=== PATIENT | female | born 1970 | race Two or more races ===

== ENCOUNTER 2024-06-15 09:51 | Inpatient (IN) | payer MEDICAID, SELFPAY ==
[2024-06-15] VITALS (42 sets, daily range): BP systolic 73–139; BP diastolic 43–89; PULSE 46–100; RESP 15–33; TEMP 35.4–36.6; O2SAT 89–100; BMI 21.3; BMI 12.8
--- NOTE | 2024-06-15 10:02 | PC.NURSE ---
FSBG 101 2 IV placed 500 bolus started 1003 bolus started BP 67/42 Preparing to intubate 1006 10 of eto 50 succ 1008 pads placed on pt BP 73/45 O2 sat 87 % 1010 eto in Succ in 1011 O2 79% 1015 BP 56/37 intubation in progress 500 ml fluids started 1016 Intubation successful + color change 21 at the gum O2 sat 83% 1020 O2 sat 52% Bagging pt via BVM Preparing to re intubate 1022 CPR epi in 1023 1024 Pulse present 1025 ett out 1027 [place] 20 at gum + color change bilat lung sounds 5.5mm ett 1031 Xray 97.3 rectal 93/56 1033 OG 45 at the lip
[2024-06-15] MEDS: ETOMIDATE INJ 2 MG/ML VIAL 10 ML 20 MG IVP (10:04)
[2024-06-15] MEDS: SODIUM CHLORIDE 0.9% 500 ML 500 ML 999 ML IV ×2 (10:04→10:10)
--- NOTE | 2024-06-15 10:19 | XR_ITS ---
Examination: AP chest single view Technique: AP portable supine chest single view Comparison February 25, 2012 Indications: Hypoxic respiratory failure postintubation Findings: Significant hyperexpansion Mild prominence of ventricle Prominent edema and/or pneumonia Tracheal tube tip approximately 5.6 cm above tiki Orogastric tube in the stomach although the stomach is air distended Prominent osteopenia Impression: Findings most consistent with heart failure, superimposed pneumonia left lung not excluded Endotracheal tube tip 5.6 cm above tiki
--- NOTE | 2024-06-15 10:37 | XR_ITS ---
Examination: CT brain head without contrast. 2-D sagittal coronal reconstructions Date and time of exam:June 15, 2024 1418 hrs. Indications: Altered mental status today with hypoxic respiratory failure postintubation CTDI: vol (mGy):39.1 DLP: (mGycm):724 Technique: Multiple CT axial sections of the brain have been obtained, 5 mm slice thickness. Contrast has not been administered. 2-D sagittal, coronal reconstructions have been obtained Low dose protocols were performed. One or more of the following dose reduction techniques were used; automated exposure control, adjustment of the mA and/or KV according to patient size, use of iterative reconstruction technique. Findings: No significant ventricular enlargement. Acute appearing low density areas in both basal ganglia Intra-axial or extra-axial hemorrhage density is not seen. No mass effect or midline shift Basal cisterns are not remarkable. Fourth ventricle is midline. Cranial vault intact. Impression: Negative for acute hemorrhage, mass effect or midline shift Acute appearing low density areas in both basal ganglia, axial images 21 and 22, seen with ischemic or anoxic change Recommend brain MRI follow-up stroke protocol
--- NOTE | 2024-06-15 10:37 | XR_ITS ---
Examination: AP chest single view Technique: AP portable supine chest single view Exam date and time: June 15, 2024 11:25 AM Comparison June 15, 2024 10:34 AM Indications: Reposition tracheal tube Findings: Again noted extensive bilateral edema and/or pneumonia Cardiac contour remains enlarged The tracheal tube tip is not optimally visualized but appears to project 22 mm above tiki No pneumothorax Impression: The tracheal tube tip is not optimally visualized but appears to project 22 mm above the tiki
--- NOTE | 2024-06-15 10:40 | PD.EDAMS ---
Altered Mental Status RME/HPI General Chief Complaint: Altered Mental Status Stated Complaint: UNRESPONSIVE Time Seen by Provider: 06/15/24 10:36 Arrival date/time: 06/15/24 09:51 RME / HPI RME / HPI narrative: The patient was brought into the emergency department by care provider by the name of Ayala Putnam phone #[phone] from home. According to the patient's care provider who is also decision-maker the patient has had a cough about 4 days. Diarrhea for 3 days. But the patient also had an irritable bowel syndrome. Patient is also legally blind No fever. No vomiting. Diarrhea yes. No trouble urinating. No more falling than usual because she is legally blind. But she did not break any bones according to the care provider. The patient last known well was about 9 PM last night when she was responding to the care provider. When the care provider found her this morning she was in bed and nonresponsive. Upon arrival to emergency department her GCS scale was less than 8 therefore she need to be intubated right away. Upon arrival to the emergency department her O2 saturation is only 60% on nonrebreathing mask. And her blood pressure was less than 84 over palpable. Her temperature was okay. Her fingerstick was normal. And there was no sign of trauma to her body. She is not responsive. She is not talking. When she is not moving. Related Data Allergies Allergy/AdvReac Type Severity Reaction Status Date / Time No Known Allergies Allergy Unverified 06/15/24 10:42 Review of Systems Review of Systems Narrative Review of Systems: Review of system is unobtainable from the patient herself because of the current clinical situation. The review of the system was done through the health care provider who is also her friend and care provider and decision maker for more than a decade. The care provider knows the patient very well and take care of the patient very well. According to the care provided the patient's family member, sister, is coming in. I am unable to talk to her on the phone. Past Medical History Past Medical History Comments [facility] COMMENT: No syndrome. Schizophrenia. Bipolar. No diabetes. No stroke. Cholesterol. Blindness. History of pneumonia a few times. Medications including behavior medication and sleep aid ED Exam Narrative Physical exam: Patient eyes are closed. GCS of 3. Not moving. Nonverbal. O2 saturation was poor and blood pressure was poor. No acute distress O2 saturation is very low even on the mask Heent: Her pupils are difficult to tell because she is blind. Neck: full rom.? No mass.? Positive JVD. jvd.? No lymphadenopathy Lungs:?Agonal breathing. Heart:? s1s2.? Rrr.? No murmur, gallop or rub. Abd: soft, nondistended, nontender, no mass, no rebound or guarding, no flank tender.? No incarcerated? hernia Ext: No sign of trauma. No range of motion. Not moving.. Neuro: GCS of 3. Patient is nonverbal. Not moving. And no open eyes. Skin:? no rash.? No cellulitis.? No lesion.? No laceration Psychiatrical: No history of suicidal overdose. Course Quality Measures none Orders Category Date Time Status Patient Condition Routine Admission 06/15/24 13:51 Ordered Aspiration precautions NOW Care 06/15/24 13:51 Active EKG (ED ONLY) *Do not use* NOW Care 06/15/24 10:57 Completed Park [Urinary Catheter] QS Care 06/15/24 10:37 Active Intubation NOW Care 06/15/24 10:40 Completed NPO NEEDED Care 06/15/24 13:50 Active NPO NOW Care 06/15/24 13:51 Active Notify provider NEEDED Care 06/15/24 13:50 Active Strict Intake and Output Q1H Care 06/15/24 14:00 Ordered Strict Intake and Output Q1H Care 06/15/24 15:00 Ordered Strict Intake and Output Q1H Care 06/15/24 16:00 Ordered Strict Intake and Output Q1H Care 06/15/24 17:00 Ordered Strict Intake and Output Q1H Care 06/15/24 18:00 Ordered Strict Intake and Output Q1H Care 06/15/24 19:00 Ordered Strict Intake and Output Q1H Care 06/15/24 20:00 Ordered Strict Intake and Output Q1H Care 06/15/24 21:00 Ordered Strict Intake and Output Q1H Care 06/15/24 22:00 Ordered Strict Intake and Output Q1H Care 06/15/24 23:00 Ordered Diet NPO (NOW) Diet 06/15/24 13:[address] head/brain wo con Stat Exams 06/15/24 10:37 Completed CXR1 [XR chest 1V post procedure] Stat Exams 06/15/24 13:33 Completed EKG (ED Only) Stat Exams 06/15/24 10:57 Draft XR chest 1V portable DAILY Exams 06/16/24 09:00 Ordered XR chest 1V portable DAILY Exams 06/17/24 09:00 Ordered XR chest 1V portable DAILY Exams 06/18/24 09:00 Ordered XR chest 1V portable DAILY Exams 06/19/24 09:00 Ordered XR chest 1V portable DAILY Exams 06/20/24 09:00 Ordered XR chest 1V portable Stat Exams 06/15/24 10:37 Completed XR chest 1V post procedure Stat Exams 06/15/24 10:19 Completed ABG [Arterial Blood Gas] Stat Lab 06/15/24 14:05 Completed Alcohol, Blood Medical Stat Lab 06/15/24 10:12 Completed Arterial Blood Gas AM DRAW Lab 06/16/24 05:00 Ordered Arterial Blood Gas AM DRAW Lab 06/17/24 05:00 Ordered Arterial Blood Gas AM DRAW Lab 06/18/24 05:00 Ordered Arterial Blood Gas AM DRAW Lab 06/19/24 05:00 Ordered Arterial Blood Gas AM DRAW Lab 06/20/24 05:00 Ordered Arterial Blood Gas Stat Lab 06/15/24 11:06 Completed BNP [B-Type Natriuretic Peptide] Routine Lab 06/15/24 18:00 Ordered Blood Culture (Lab) Stat Lab 06/15/24 11:14 Received CBC DAILY Lab 06/17/24 09:00 Ordered CBC DAILY Lab 06/18/24 09:00 Ordered CBC DAILY Lab 06/19/24 09:00 Ordered CBC DAILY Lab 06/20/24 09:00 Ordered CBC DAILY Lab 06/21/24 09:00 Ordered CBC Stat Lab 06/15/24 10:12 Completed CMP [Comprehensive Metabolic Panel] Stat Lab 06/15/24 10:12 Completed Comprehensive Metabolic Panel DAILY Lab 06/17/24 09:00 Ordered Comprehensive Metabolic Panel DAILY Lab 06/18/24 09:00 Ordered Comprehensive Metabolic Panel DAILY Lab 06/19/24 09:00 Ordered Comprehensive Metabolic Panel DAILY Lab 06/20/24 09:00 Ordered Comprehensive Metabolic Panel DAILY Lab 06/21/24 09:00 Ordered Drug Screen,Urine Stat Lab 06/15/24 10:55 Completed Lipase Stat Lab 06/15/24 10:12 Completed Prothrombin Time with INR Routine Lab 06/15/24 14:56 Completed Sputum Culture and Gram Stain Stat Lab 06/15/24 11:06 Received Troponin I Q8H Lab 06/15/24 18:00 Ordered Troponin I Q8H Lab 06/16/24 02:00 Ordered Troponin I Q8H Lab 06/16/24 10:00 Ordered Troponin I Stat Lab 06/15/24 10:12 Completed UA, C/S IF [Urinalysis, C/S if Indicated] Stat Lab 06/15/24 10:55 Completed Urine Culture Stat Lab 06/15/24 10:55 Received Acetaminophen Supp [Tylenol Supp] Med 06/15/24 13:50 Active 650 mg KS Q4HR PRN Acetaminophen Tab [Tylenol Tab] Med 06/15/24 13:50 Active 650 mg PO Q4HR PRN Etomidate Inj [Amidate Inj] Med 06/15/24 10:04 Discontinued 20 mg IVP X1 ONE Heparin Inj Med 06/15/24 14:00 Active 5,000 unit SC Q8HR Milk Of Magnesia Susp [Mom Susp] Med 06/15/24 13:50 Active 30 ml NG QDAY PRN Nitroglycerin [Nitrostat 1/150] Med 06/15/24 13:50 Active 0.4 mg SL Q5MIN PRN Norepinephrine/D5W 8mg/250ml [Levophed in D5W 8mg/250ml Med 06/15/24 10:37 Active ] 8 mg in 250 ml IV 0.05 mcg/kg/min Norepinephrine/D5W 8mg/250ml [Levophed in D5W 8mg/250ml Med 06/15/24 10:55 Discontinued ] 8 mg in 250 ml IV 0.05 mcg/kg/min Pantoprazole Inj [Protonix Inj] Med 06/16/24 09:00 Active 40 mg IVP QDAY Propofol 1,000 mg Ivpb [Diprivan Ivpb] Med 06/15/24 10:55 Active 1,000 mg in 100 ml IV 5 mcg/kg/min Ringers Lactated 500 ml [Lactated Ringers] 500 ml Med 06/15/24 12:51 Discontinued IV 999 mls/hr Ringers Lactated 500 ml [Lactated Ringers] 500 ml Med 06/15/24 13:27 Discontinued IV 999 mls/hr Sodium Chloride 0.9% 500 ml [Ns] 500 ml Med 06/15/24 10:39 Discontinued IV 999 mls/hr Sodium Chloride 0.9% 500 ml [Ns] 500 ml Med 06/15/24 10:39 Discontinued IV 999 mls/hr Succinylcholine Inj [Anectine Inj] Med 06/15/24 10:02 Discontinued 200 mg .ROUTE .STK-MED ONE Succinylcholine Inj [Anectine Inj] Med 06/15/24 10:05 Discontinued 50 mg IV X1 ONE Vasopressin in Ns Ivpb [Vasostrict/Ns Ivpb] Med 06/15/24 13:48 Active 20 unit in 100 ml IV 0.03 unit/min cefTRIAXone/D5w 1gm IV premix [Rocephin/D5w 1gm IV Med 06/15/24 10:54 Discontinued premix] 50 ml IV X1 mg Hyd/Al Hyd/Franklyn Susp [Maalox Susp] Med 06/15/24 13:50 Active 30 ml NG Q4HR PRN Code Status Routine Oth 06/15/24 13:50 Ordered Volume Ventilator Stat RT 06/15/24 10:40 Active Vital Signs Vital signs: Vital Signs Temperature 97.3 F 06/15/24 10:54 Pulse Rate 100 06/15/24 10:54 Respiratory Rate 32 H 06/15/24 10:54 Blood Pressure 81/43 L 06/15/24 10:54 Pulse Oximetry (%) 100 06/15/24 10:54 Oxygen Delivery Method Mechanical Ventilation 06/15/24 10:54 Fraction of Inspired Oxygen 100 06/15/24 10:54 Altered Mental Status MDM Narrative MDM Narrative:: The patient did have a soft CODE BLUE in the emergency department lasted for maybe a few minutes. And CPR was given. After that she regained a pulse. Normal saline 500 mL normal saline boluses was given to the patient because of the hypotension. I intubated the patient with a size 5-1/2 ET tube. Using glide scope. No problem. O2 saturation is up to 100% after the intubation. Positive for handheld CO2 monitor color change. No stomach air bubble. Postintubation chest x-ray by me: Significant left-sided pneumonia. ET tube is in good position. In spite of radiologist interpretation, in retrospect, I think the ET tube is right. OG tube is also in good position. No pneumothorax. I doubt if there is any CHF based on her dehydration. There is no need chest x-ray to compare with. Twelve-lead EKG that was done at 11 0 9 AM and interpreted by me: Sinus tachycardia. Heart rate of 100. Normal axis. No ST elevation or depression. No PVC. No STEMI. Regular rate and rhythm. Motion artifact wavering baseline. WBC count of 13,000. Hemoglobin of 9. Hematocrit of 29.7. Platelet of 120. Sodium 166. Chloride 124. BUN of62 and creatinine of 2.6. Once again there is no lab to compare with. Lipase is negative. Osmolality 346 consistent with dehydration. Troponin is 0.236. UA is negative. Tox screen is negative. EtOH is negative. 12 PM, in spite of being received close to a liter of normal saline boluses in aliquots, in spite of being on Levophed 0.1 mcg/kg/min, her blood pressure is still 76 over palpable. O2 saturation is 100% on the vent. Because of the prospect of dehydration with a sodium and chloride being elevated, I asked the nursing staff to give the patient another 250 normal saline bolus in an attempt to bring up her blood pressure. The patient's family members are here including the 2 sisters. They are aware of the patient critical condition. And I let them know about the prognosis which is not very good. 12:20 PM, I spoke to and discussed with Dr. Alexander, ICU doctor on-call. She agrees to evaluate the patient for admission to the ICU. [place] [address] [place] [address] [facility] Report Signed Patient: MATTHEW MILTON. Record#: [id number] Birthdate: 1970 Age/Sex: 54 / F Location: [facility] Attending Dr: Ordering Physician: Mitchel Gonzalez MD Date of Service: 06/15/24 Procedure(s): CT head/brain wo con Accession Number(s): [id number] cc: Jayce Muñiz MD; Kye Monet MD; Mitchel Gonzalez MD~ Examination: CT brain head without contrast. 2-D sagittal coronal reconstructions Date and time of exam:June 15, 2024 1418 hrs. Indications: Altered mental status today with hypoxic respiratory failure postintubation CTDI: vol (mGy):39.1 DLP: (mGycm):724 Technique: Multiple CT axial sections of the brain have been obtained, 5 mm slice thickness. Contrast has not been administered. 2-D sagittal, coronal reconstructions have been obtained Low dose protocols were performed. One or more of the following dose reduction techniques were used; automated exposure control, adjustment of the mA and/or KV according to patient size, use of iterative reconstruction technique. Findings: No significant ventricular enlargement. Acute appearing low density areas in both basal ganglia Intra-axial or extra-axial hemorrhage density is not seen. No mass effect or midline shift Basal cisterns are not remarkable. Fourth ventricle is midline. Cranial vault intact. Impression: Negative for acute hemorrhage, mass effect or midline shift Acute appearing low density areas in both basal ganglia, axial images 21 and 22, seen with ischemic or anoxic change Recommend brain MRI follow-up stroke protocol Dictated By: Kye Monet MD Signed By: <Electronically signed by Kye Monet MD in OV> 06/15/24 1500 DD/ 1458 TD/TT: 06/15/24 1458 Director Of Valuation: ISAAC CT brain was reviewed and interpreted by me as follow: Not symmetrical because of the patient positioning. However the patient has no bleed. No mass. No shifting. No swelling. Normal ventricle. Normal skull. Critical care time is approximately 45 minutes excluding any procedure. The high probability of sudden, clinically significant deterioration in the patient?s condition required the highest level of my preparedness to intervene urgently. The services I provided to this patient were to treat and/or prevent clinically significant deterioration. Services included the following: chart data review, reviewing nursing notes and/or old charts, documentation time, systems security consultant collaboration regarding findings and treatment options, medication orders and management, direct patient care, vital sign assessments and ordering, interpreting and reviewing diagnostic studies and lab tests. Aggregate critical care time includes only time during which I was engaged in work directly related to the patient?s care, as described above, whether at bedside or elsewhere in the Emergency Department. It did not include time spent performing other reported procedures or the services of residents, students, nurses or physician assistants. Patient data External records reviewed:: [facility] previous records Clinical information provided by:: family, guardian and plastic maker Social determinants that could affect healthcare access:: none Patient has the following chronic illnesses:: Down syndrome. How is presenting disease/condition affected by chronic disease/condition?: uneffected by Evaluation data The following diagnostics were reviewed and interpreted by me:: lab results, radiology exam(s) and EKG tracing(s) Lab and/or radiology exams considered but not ordered:: None Interpretation Summary: See MDM Medications / Prescriptions Medications or Prescriptions considered but not ordered:: None Medication administrations:: Medication Administration History Acetaminophen (Acetaminophen 325 Mg Tablet) 650 mg PO Q4HR PRN PRN Reason: PAIN SCALE 1-3 (mild Stop: 07/15/24 13:49 Acetaminophen (Acetaminophen Supp 650 Mg Supp) 650 mg KS Q4HR PRN PRN Reason: PAIN SCALE 1-3 (mild Stop: 07/15/24 13:49 Al Hydrox/Mg Hydrox/Simethicone (Mg Hyd/Al Hyd/Franklyn (Maalox Reg) Susp 30 Ml Udc) 30 ml NG Q4HR PRN PRN Reason: Heartburn or Upset Stomach Stop: 07/15/24 13:49 Heparin Sodium (Porcine) (Heparin Sod Inj 5000 Unit/Ml Vial) 5,000 unit SC Q8HR [facility] Stop: 06/29/24 13:59 Last Admin: 06/15/24 15:01 Dose: 5,000 unit Documented By: ESTEFANI Co-signed By: CK Hydrocortisone Sodium Succinate (Hydrocortisone Sod Succ Inj 100 Mg Vial) 50 mg IV Q6HR [facility] Stop: 07/15/24 17:59 Norepinephrine/Dextrose (Levophed In D5w 8mg/250ml) 8 mg in 250 mls @ 2.977 mls/hr IV .Q24H PRN; Protocol PRN Reason: PER PROTOCOL Stop: 07/15/24 10:36 Last Titration: 06/15/24 15:10 Dose: 0.46 mcg/kg/min, 27.385 mls/hr Documented By: Titration: 06/15/24 14:42 Dose: 0.44 mcg/kg/min, 26.195 mls/hr Documented By: Titration: 06/15/24 14:05 Dose: 0.44 mcg/kg/min, 26.195 mls/hr Documented By: Titration: 06/15/24 13:50 Dose: 0.44 mcg/kg/min, 26.195 mls/hr Documented By: Titration: 06/15/24 13:45 Dose: 0.44 mcg/kg/min, 26.195 mls/hr Documented By: Titration: 06/15/24 13:41 Dose: 0.44 mcg/kg/min, 26.195 mls/hr Documented By: Titration: 06/15/24 13:36 Dose: 0.44 mcg/kg/min, 26.195 mls/hr Documented By: Titration: 06/15/24 13:31 Dose: 0.44 mcg/kg/min, 26.195 mls/hr Documented By: Titration: 06/15/24 13:26 Dose: 0.42 mcg/kg/min, 25.004 mls/hr Documented By: Titration: 06/15/24 13:21 Dose: 0.42 mcg/kg/min, 25.004 mls/hr Documented By: Titration: 06/15/24 13:16 Dose: 0.38 mcg/kg/min, 22.623 mls/hr Documented By: Titration: 06/15/24 13:11 Dose: 0.36 mcg/kg/min, 21.432 mls/hr Documented By: Titration: 06/15/24 13:06 Dose: 0.36 mcg/kg/min, 21.432 mls/hr Documented By: Titration: 06/15/24 12:59 Dose: 0.34 mcg/kg/min, 20.241 mls/hr Documented By: Titration: 06/15/24 12:54 Dose: 0.32 mcg/kg/min, 19.051 mls/hr Documented By: Titration: 06/15/24 12:47 Dose: 0.3 mcg/kg/min, 17.86 mls/hr Documented By: Titration: 06/15/24 12:45 Dose: 0.24 mcg/kg/min, 14.288 mls/hr Documented By: Titration: 06/15/24 12:41 Dose: 0.22 mcg/kg/min, 13.097 mls/hr Documented By: Titration: 06/15/24 12:36 Dose: 0.17 mcg/kg/min, 10.121 mls/hr Documented By: Titration: 06/15/24 12:32 Dose: 0.15 mcg/kg/min, 8.93 mls/hr Documented By: Titration: 06/15/24 12:27 Dose: 0.13 mcg/kg/min, 7.739 mls/hr Documented By: Titration: 06/15/24 12:20 Dose: 0.11 mcg/kg/min, 6.549 mls/hr Documented By: Titration: 06/15/24 12:15 Dose: 0.09 mcg/kg/min, 5.358 mls/hr Documented By: Titration: 06/15/24 12:11 Dose: 0.07 mcg/kg/min, 4.167 mls/hr Documented By: Titration: 06/15/24 12:00 Dose: 0.05 mcg/kg/min, 2.977 mls/hr Documented By: Titration: 06/15/24 11:36 Dose: 0.05 mcg/kg/min, 3.121 mls/hr Documented By: Titration: 06/15/24 11:32 Dose: 0.05 mcg/kg/min, 3.07 mls/hr Documented By: Titration: 06/15/24 11:27 Dose: 0.05 mcg/kg/min, 3.02 mls/hr Documented By: Admin: 06/15/24 11:22 Dose: 0.05 mcg/kg/min, 2.977 mls/hr Documented By: ESTEFANI Propofol (Diprivan Ivpb) 1,000 mg in 100 mls @ 0.953 mls/hr IV .Q24H PRN; Protocol PRN Reason: PER PROTOCOL Stop: 07/15/24 10:54 Last Titration: 06/15/24 12:26 Dose: 10 mcg/kg/min, 1.905 mls/hr Documented By: Admin: 06/15/24 11:53 Dose: 5 mcg/kg/min, 0.953 mls/hr Documented By: AA Co-signed By: CK Vasopressin/Sodium Chloride (Vasostrict/Ns Ivpb) 20 unit in 100 mls @ 9 mls/hr IV .Q11H7M PRN; Protocol PRN Reason: PER PROTOCOL Stop: 07/15/24 13:47 Last Admin: 06/15/24 15:43 Dose: 0.03 unit/min, 9 mls/hr Documented By: CK Piperacillin/Tazobactam/Dextrose (Zosyn) 50 mls @ 12.5 mls/hr IV Q12HR [facility] Stop: 06/23/24 08:59 Piperacillin/Tazobactam/Dextrose (Zosyn) 50 mls @ 100 mls/hr IV X1 ONE Stop: 06/15/24 16:59 Magnesium Hydroxide (Milk Of Magnesia Susp 30 Ml Udc) 30 ml NG QDAY PRN PRN Reason: CONSTIPATION Stop: 07/15/24 13:49 Nitroglycerin (Nitroglycerin 0.4 Mg Subl Btl #25) 0.4 mg SL Q5MIN PRN PRN Reason: CHEST PAIN Pantoprazole Sodium (Pantoprazole Inj 40 Mg Vial) 40 mg IVP QDAY [facility] Stop: 07/16/24 08:59 Discontinued Medications Etomidate (Etomidate Inj 2 Mg/Ml Vial 10 Ml) 20 mg IVP X1 ONE Stop: 06/15/24 10:05 Last Admin: 06/15/24 10:04 Dose: 20 mg Documented By: CK Sodium Chloride (Ns) 500 mls @ 999 mls/hr IV .Q31M ONE Stop: 06/15/24 11:09 Last Infusion: 06/15/24 11:00 Dose: Infused Documented By: Admin: 06/15/24 10:10 Dose: 999 mls/hr Documented By: CK Sodium Chloride (Ns) 500 mls @ 999 mls/hr IV .Q31M ONE Stop: 06/15/24 11:09 Last Infusion: 06/15/24 11:00 Dose: Infused Documented By: Admin: 06/15/24 10:04 Dose: 999 mls/hr Documented By: CK Ceftriaxone Sodium/Dextrose (Rocephin/D5w 1gm Iv Premix) 50 mls @ 100 mls/hr IV X1 ONE Stop: 06/15/24 11:23 Last Infusion: 06/15/24 12:13 Dose: Infused Documented By: Admin: 06/15/24 11:13 Dose: 100 mls/hr Documented By: ESTEFANI Norepinephrine/Dextrose (Levophed In D5w 8mg/250ml) 8 mg in 250 mls @ 0 mls/hr IV PRN; Protocol PRN Reason: PER PROTOCOL Stop: 07/15/24 10:54 Lactated Ringer's (Lactated Ringers) 500 mls @ 999 mls/hr IV .Q31M ONE Stop: 06/15/24 13:21 Last Infusion: 06/15/24 13:38 Dose: Infused Documented By: Admin: 06/15/24 13:03 Dose: 999 mls/hr Documented By: ESTEFANI Lactated Ringer's (Lactated Ringers) 500 mls @ 999 mls/hr IV .Q31M ONE Stop: 06/15/24 13:57 Last Infusion: 06/15/24 14:48 Dose: Infused Documented By: Admin: 06/15/24 13:38 Dose: 999 mls/hr Documented By: ESTEFANI Succinylcholine Chloride (Succinylcholine Inj 20 Mg/Ml Vial 10 Ml) 50 mg IV X1 ONE Stop: 06/15/24 10:06 Last Admin: 06/15/24 11:00 Dose: 50 mg Documented By: CK Succinylcholine Chloride (Succinylcholine Inj 20 Mg/Ml Vial 10 Ml) Confirm Administered Dose 200 mg .ROUTE .STK-MED ONE Stop: 06/15/24 10:03 Last Admin: 06/15/24 10:58 Dose: Not Given Documented By: CK Non-Admin Reason: Override Medication Some of this medication given by me. Some of these medications are given by the hospitalist Consultations Consultation(s) initiated? (list below): No Diagnosis Most likely diagnosis given after review of the tests above:: Sepsis. Pneumonia. Severe dehydration. Intubated. CODE BLUE. Admission Indicated Admission indicated?: indicated Admission Request Was there a request for admission?: Yes Admission Attestation Admission request attestation: Discussed case with [] from Hospitalist service regarding admission. Discussed patients ED course, exam findings, labs, and radiology results. The Hospitalist [agrees,declines] to accept the patient for admission. Disposition Plan Disposition Plan: Admit Discharge Plan Plan Patient Disposition: Admit Acute Care w/in Hospital Disposition Comment: To be admitted to ICU for critical care Problem List Clinical Impression: Altered mental status, Pneumonia, Severe dehydration, Acute hypotension, Elevated troponin, Endotracheally intubated
[2024-06-15 10:53] LABS: Basophils % (Auto) 0 % (0-2.5); Eosinophils % (Auto) 0 % (0-10); Hematocrit 29.7 % (36.0-46.0); Hemoglobin 9.2 g/dL (12.0-16.0); Immature Granulocytes % (Auto) 1 % (0-0); Immature Granulocytes Auto 0.09 Thou/mm3 (0.00-0.00); Lymphocytes # (Auto) 0.8 Thou/mm3 (1.0-4.8); Lymphocytes % (Auto) 6 % (10-50); Mean Corpuscular Hemoglobin 35.4 pg (25.0-35.0); Mean Corpuscular Volume 114 fL (80-100); Monocytes # (Auto) 0.4 Thou/mm3 (0.0-0.8); Monocytes % (Auto) 3 % (0-12); Neutrophils % (Auto) 90 % (37-80); Nucleated Red Blood Cell % 0 /100 WBC (0); Platelet Count 120 Thou/mm3 (140-440); RDW Standard Deviation 69.6 fL (36.4-46.3); White Blood Count 13.4 Thou/mm3 (3.6-11.0)
--- NOTE | 2024-06-15 10:53 | PC.NURSE ---
RT moved tube at 23cm at the teeth.
--- NOTE | 2024-06-15 10:57 | EKG_ITS ---
[facility] Test Date: 2024-06-15 Pat Name: MATTHEW MILTON Department: Room: - Gender: Female Mid Wife: : 1970 Requested By: Mitchel Gonzalez Order Number: [id number] Reading MD: Mitchel Gonzalez Measurements Intervals [place] Rate: 100 P: 71 DE: 100 QRS: 86 QRSD: 82 T: -2 QT: 360 QTc: 465 Interpretive Statements SINUS TACHYCARDIA WITH SHORT DE INTERVAL SEPTAL MYOCARDIAL INFARCTION , PROBABLY OLD [40+ ms Q WAVE IN V1/V2] No previous ECG available for comparison /store/S0/[id number].pdf
[2024-06-15] MEDS: SUCCINYLCHOLINE INJ 20 MG/ML VIAL 10 ML 50 MG IV (11:00)
[2024-06-15 11:03] LABS: Alanine Aminotransferase 31 U/L (10-49); Albumin, Serum 3.2 gm/dL (3.5-5.0); Albumin/Globulin Ratio 1.1 (1.2-2.2); Alcohol, Blood Medical < 10.0 mg/dL (0-10.0); Alkaline Phosphatase 117 U/L (46-116); Anion Gap 10 (7-16); Aspartate Amino Transferase 50 U/L (0-34); BUN/Creatinine Ratio 24 Ratio (12-20); Bilirubin,Total 0.2 mg/dL (0.3-1.2); Blood Urea Nitrogen 62 mg/dL (9-23); Calcium 8.1 mg/dL (8.3-10.6); Calcium (Corrected) 8.7 mg/dL (8.5-10.1); Carbon Dioxide 31.8 mMol/L (20.0-31.0); Chloride 124 mMol/L (98-107); Creatinine (Component) 2.6 mg/dL (0.6-1.3); Estimated Creatinine Clearance 12.7 mL/min (>60); Globulin 2.9 gm/dL (2.3-3.5); Glucose 114 mg/dL (74-106); Lipase 21 U/L (12-53); Osmolality,Calculated 346 (275-295); Potassium 4.5 mMol/L (3.4-5.1); Total Protein 6.1 gm/dL (5.7-8.2); eGFR 22 See Note
[2024-06-15 11:05] LABS: Sodium 166 mMol/L (136-145); Troponin I 0.236 ng/mL (0.0-0.045)
[2024-06-15 11:11] LABS: Collection Type, Urine Catheter; Squamous Epithelial Cell,Urine 0 /hpf (0-5)
[2024-06-15 11:11] LABS: Allen Test Not Performed; Base Excess 0 (-3-3); HCO3 29 mEq/L (20-26); Inspired Oxygen, FIO2 100 %; O2 Saturation 99 % (91-98); PCO2 69 mmHg (32.0-48.0); PO2 153 mmHg (83-108); Puncture Site Right Brachial; pH, Arterial 7.23 (7.35-7.45)
[2024-06-15] MEDS: cefTRIAXone/D5w 1gm IV premix 50 ML IV (11:13)
[2024-06-15] MEDS: Norepinephrine/D5W 8mg/250ml 8 MG/250 ML BAG 2.977 MG IV (11:22)
[2024-06-15 11:25] LABS: Bacteria,Urine Rare; Bilirubin,Urine Negative (Negative); Blood,Urine 3+ (Negative); Clarity,Urine Turbid (Clear/Hazy); Color,Urine Yellow (Lt Yel-Yel); Glucose, Urine Negative (Negative); Ketones,Urine Negative (Negative); Leukocyte Esterase,Urine Positive (Negative); Nitrite,Urine Negative (Negative); Protein,Urine 1+ (Neg - Trace); RBC,Urine 8 /hpf (0-3); Specific Gravity,Urine 1.025 (1.001-1.035); Urobilinogen,Urine Negative mg/dL (0.0-1.0); WBC,Urine 36 /hpf (0-5)
[2024-06-15 11:26] LABS: Culture Indicated,Urine Yes
[2024-06-15 11:35] LABS: Amphetamine/Methamp Scrn,U Negative (Negative); Barbiturate Screen,Urine Negative (Negative); Benzodiazepines Screen,Urine Negative (Negative); Benzoylecgonine Screen, Ur Negative (Negative); Fentanyl Screen,Urine Negative (Negative); Opiate Screen,Urine Negative (Negative); THC Screen,Urine Negative (Negative)
[2024-06-15] MEDS: PROPOFOL 1,000 MG IVPB 1,000 MG/100 ML VIAL 0.953 MG IV (11:53)
--- NOTE | 2024-06-15 12:42 | PC.NURSE ---
Dr Alexander at bedside evaluating patient, speaking with caregiver. Dr Alexander gave orders for Norepinephrine.
--- NOTE | 2024-06-15 12:42 | PC.NURSE ---
Addendum entered by Shannon Nicole RN 06/15/24 13:14: Dr Connor Original Note: Dr Connor at bedside speaking with caregiver, assessing patient. Per Dr Connor increase Norepinephrine to 0.22mcg/kg/min.
[2024-06-15] MEDS: RINGERS LACTATED 500 ML 500 ML 999 ML IV ×2 (13:03→13:38)
--- NOTE | 2024-06-15 13:33 | XR_ITS ---
Examination: AP chest single view Technique: AP portable supine chest single view Exam date and time: June 15, 2024 1338 hrs. Comparison June 15, 2024 10:34 AM Indications: Removal of tracheostomy tube Findings: Bilateral edema and/or pneumonia with enlarged cardiac contour Tracheal tube is poorly visualized, the tip may be 25 mm above tiki The orogastric tube is in the stomach Prominent osteopenia Impression: Tracheal tube tip is poorly visualized, the tip may be 25 mm above tiki
[2024-06-15 14:13] LABS: Base Excess 3 (-3-3); HCO3 29 mEq/L (20-26); Inspired Oxygen, FIO2 70 %; O2 Saturation 92 % (91-98); PCO2 56 mmHg (32.0-48.0); PO2 67 mmHg (83-108); pH, Arterial 7.33 (7.35-7.45)
[2024-06-15 14:19] LABS: Puncture Site Right Brachial
[2024-06-15 14:20] LABS: Allen Test Not Performed
--- NOTE | 2024-06-15 14:42 | PC.NURSE ---
Return from CT via [facility], patient tolerated well, placed back on mechanical vent.
[2024-06-15] MEDS: HEPARIN SOD INJ 5000 UNIT/ML VIAL SC ×2 (15:01→22:18)
--- NOTE | 2024-06-15 15:13 | PC.CC ---
DIRECTOR SOFTWARE DEVELOPMENT CC met with pts health care / medical job titles Ayala Putnam [phone], who has been caring for pt for last 20yrs. Pt has an estranged sister in [place] and another sister who arrived from [place] on 06/14/24. Pts care provider is surrogate DM. Pt admitted to ICU/intubated for AMS and AHRF. Per care provider pt is ambulatory with assist, pt is blind. Pt requires assist with all her ADLs. PEr care provider pt has been complaining about sore throat and cough for last few days. DIRECTOR SOFTWARE DEVELOPMENT CC will remain available as needed for pt care and staff support.
[2024-06-15 15:22] LABS: INR 1.3 (0.9-1.3); Prothrombin Time 14.3 Seconds (9.0-12.2)
[2024-06-15] MEDS: VASOPRESSIN IN NS IVPB 20 UNIT/100 ML BAG 9 UNIT IV (15:43)
--- NOTE | 2024-06-15 16:08 | PD.INTPROG ---
Documentation for date of: 06/15/24 Subjective Subjective Interval history: This is a 54-year-old female with a history of developmental delay who was brought into the ER with shortness of breath. The patient is seen and examined in ER room 2, she is hemodynamically unstable. The patient has a caregiver that she has lived with for the last 20 years who provides all information and is her primary medical decision-maker. The patient apparently began to develop cough approximately 5 days ago. She has had a poor appetite with poor p.o. intake over the last several days. Apparently she ate some soup yesterday. She also apparently has not slept in the last 4 days. This morning she was found unresponsive however initially the caregiver felt that the patient was nearly fast asleep. When she did not wake up after repeated physical stimuli EMS was called and the patient was brought to the ER. Upon arrival the patient was found to be hypoxic and a CODE BLUE was called for respiratory arrest. The patient was intubated and following intubation did lose pulses briefly. 1 round of epi was given prior to ROSC being achieved. The patient is very small in stature and weighs 31 kg. She was intubated with pediatric tube. Postintubation she was hypotensive requiring vasopressors. She was given a total of 750 cc of fluid bolus prior to vasopressors being started. At time of eval bedside echo was done. Her IVC was found to have greater than 50% variability and therefore additional fluid boluses were ordered. The bedside echo revealed a hyperdynamic LV with trace pericardial effusion. No significant wall motion abnormalities noted. She had a rapid titration upwards of her Levophed to 0.4 mcg/kg/min. Critical Care Note Critical care time (min.): 75 Exam Vital Signs Temp Pulse Resp BP Pulse Ox O2 Del Method FiO2 95.7 F L 60 28 H 100/68 94 L Mechanical Ventilation 70 06/15/24 14:40 06/15/24 14:40 06/15/24 14:40 06/15/24 14:40 06/15/24 14:40 06/15/24 14:40 06/15/24 14:40 Narrative Exam General-intubated, sedated, very thin body habitus, pediatric dimensions HEENT-normocephalic, atraumatic, sclera anicteric, left cornea is covered with a pannus, right pupil reveals a very large cataract, oral mucosa is dry, poor dentition, ET tube in place Chest-coarse breath sounds, occasional crackles, no active wheezing, heart regular rhythmic, no bruits murmurs auscultated at time of exam, no increased work of breathing Abdomen-soft, nontender, bowel sounds present, no rebound or guarding Extremities-no edema the lower extremities, pulses palpable, no clubbing or mottling, distal extremities are cool to touch, Park in place with cloudy urine noted Vent AC/VC Drips Propofol Levophed Physical Exam Completion Physical Exam Complete?: Yes 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 Labs 06/15/24 10:12 06/15/24 10:12 Labs: Laboratory Results - last 24 hr 06/15/24 06/15/24 06/15/24 10:12 10:55 11:06 WBC 13.4 H RBC 2.60 L Hgb 9.2 L Hct 29.7 L MCV 114 H MCH 35.4 H MCHC 31.0 RDW Std Deviation 69.6 H Plt Count 120 L Neut % (Auto) 90 H Lymph % (Auto) 6 L [place] % (Auto) 3 Eos % (Auto) 0 Baso % (Auto) 0 Neut # (Auto) 12.0 H Lymph # (Auto) 0.8 L [place] # (Auto) 0.4 Eos # (Auto) 0.0 Baso # (Auto) 0.0 Immature Gran # (Auto) 0.09 H Absolute Nucleated RBC 0.00 Immature Gran % 1 H Nucleated RBC % 0 PT INR Puncture Site Right Brachial ABG pH 7.23 L ABG pCO2 69 H ABG pO2 153 H ABG HCO3 29 H ABG O2 Saturation 99 H ABG Base Excess 0 FiO2 100 Sodium 166 H* Potassium 4.5 Chloride 124 H* Carbon Dioxide 31.8 H Anion Gap 10 BUN 62 H Creatinine 2.6 H Estim Creat Clear Calc 12.7 L eGFR 22 L BUN/Creatinine Ratio 24 H Glucose 114 H Calculated Osmolality 346 H Calcium 8.1 L Corrected Calcium 8.7 Total Bilirubin 0.2 L AST 50 H ALT 31 Alkaline Phosphatase 117 H Troponin I 0.236 H* Total Protein 6.1 Albumin 3.2 L Globulin 2.9 Albumin/Globulin Ratio 1.1 L Lipase 21 Ur Collection Type Catheter Urine Color Yellow Urine Clarity Turbid A Urine pH 6.0 Ur Specific [place] 1.025 Urine Protein 1+ A Urine Glucose (UA) Negative Urine Ketones Negative Urine Blood 3+ A Urine Nitrite Negative Urine Bilirubin Negative Urine Urobilinogen (Auto) Negative Ur Leukocyte Esterase Positive Urine RBC 8 H Urine WBC 36 H Ur Squamous Epith Cells 0 Urine Bacteria Rare Ur Culture Indicated? Yes Urine Opiates Screen Negative Urine Fentanyl Screen Negative Ur Barbiturates Screen Negative U Amphetamin/Meth Scrn Negative U Benzodiazepines Scrn Negative U Cocaine Metab Screen Negative U Marijuana (THC) Screen Negative Ethyl Alcohol < 10.0 06/15/24 06/15/24 14:05 14:56 WBC RBC Hgb Hct MCV MCH MCHC RDW Std Deviation Plt Count Neut % (Auto) Lymph % (Auto) [place] % (Auto) Eos % (Auto) Baso % (Auto) Neut # (Auto) Lymph # (Auto) [place] # (Auto) Eos # (Auto) Baso # (Auto) Immature Gran # (Auto) Absolute Nucleated RBC Immature Gran % Nucleated RBC % PT 14.3 H INR 1.3 Puncture Site Right Brachial ABG pH 7.33 L D ABG pCO2 56 H D ABG pO2 67 L D ABG HCO3 29 H ABG O2 Saturation 92 ABG Base Excess 3 FiO2 70 Sodium Potassium Chloride Carbon Dioxide Anion Gap BUN Creatinine Estim Creat Clear Calc eGFR BUN/Creatinine Ratio Glucose Calculated Osmolality Calcium Corrected Calcium Total Bilirubin AST ALT Alkaline Phosphatase Troponin I Total Protein Albumin Globulin Albumin/Globulin Ratio Lipase Ur Collection Type Urine Color Urine Clarity Urine pH Ur Specific [place] Urine Protein Urine Glucose (UA) Urine Ketones Urine Blood Urine Nitrite Urine Bilirubin Urine Urobilinogen (Auto) Ur Leukocyte Esterase Urine RBC Urine WBC Ur Squamous Epith Cells Urine Bacteria Ur Culture Indicated? Urine Opiates Screen Urine Fentanyl Screen Ur Barbiturates Screen U Amphetamin/Meth Scrn U Benzodiazepines Scrn U Cocaine Metab Screen U Marijuana (THC) Screen Ethyl Alcohol Assessment & Plan Additional Assessment Additional Assessment: In brief this is a 54-year-old female admitted to the ICU for acute hypoxic respiratory failure with septic shock a/p [employer] Sedated CV Shock-bedside echo performed and the patient appears to have adequate LV contractility and does not appear to have any significant RV strain at this moment in time. Chest x-ray noted without any pneumothorax. At this point in time patient unlikely to have a obstructive or cardiac etiology for her shock. Her IVC did show variability she has had a poor p.o. intake therefore hypovolemia likely plays into her significant hypotension at this point in time. She has a white count as well as a pneumonia, she meets criteria for sepsis. She likely has distributive shock along with her hypovolemia, she is on broad-spectrum antibiotics. Given her size our 16 cm central line is too large for her and there are no smaller central lines available in the hospital at this moment in time. Will continue to run vasopressors via her size 18 peripheral AC line. She is on high-dose Levophed and has been started on vasopressin, she will be started on hydrocortisone for refractory septic shock as well. Troponinemia-in the setting of cardiac arrest as well as acute renal failure. Likely type II and related to demand ischemia. Will trend troponins and follow-up on an echocardiogram Resp Acute hypoxic respiratory failure-patient is currently intubated and on mechanical ventilation, follow-up with ABG and chest x-ray Pneumonia-on Zosyn, influenza and COVID test are currently pending, cultures pending Renal acute kidney injury-likely prerenal and secondary to severe dehydration, monitor I's and O's, avoid nephrotoxins Hypernatremia-replace with free water, monitor sodium GI GI prophylaxis-PPI Endo Stable Heme Leukocytosis-secondary to pneumonia Macrocytic anemia-check B12 and folate Thrombocytopenia-secondary to sepsis DVT prophylaxis-heparin ID Pneumonia-cultures pending Septic shock-cultures pending and on antibiotics Case discussed with ICU team Discussed with the ER discussed with caregiver at bedside Labs, imaging and records reviewed Approximately 75 critical care minutes required for evaluation, exam, review, intervention, discussion and formulation of plan of care for this critically ill patient with septic shock and acute hypoxic respiratory failure at high risk for further and ongoing decompensation. Provider Notation Provider Notation: Although this document has been carefully reviewed, there may still be some phonetic and other typographical errors. These errors are purely grammatical due to imperfections in the software program and should not be construed in any way to compromise the substance of the patient's medical care during this visit. Thank you for the opportunity and privilege in assisting you with this patient's care and management.
--- NOTE | 2024-06-15 16:13 | PC.NURSE ---
report givent to Alitsair Bruno, patient will transport to [facility]
--- NOTE | 2024-06-15 17:08 | PC.NURSE ---
Pt arrived to room 254 at 1635. Pt vs stable. Built in bedscale weighed patient at 19.1 kg. Notified MD and made changes to patients weight on IV pump setup to actual weight. New rate of levo is .76 mcg/kg/min. MD Alexander ordered to titrate to 0.7. Prop self adjusted from 15 mcg/kg/min to 25.
[2024-06-15 17:11] LABS: Base Excess 4 (-3-3); HCO3 30 mEq/L (20-26); Inspired Oxygen, FIO2 60 %; O2 Saturation 91 % (91-98); PCO2 57 mmHg (32.0-48.0); PO2 65 mmHg (83-108); Puncture Site Right Brachial; pH, Arterial 7.34 (7.35-7.45)
[2024-06-15 17:12] LABS: Allen Test Performed/OK
[2024-06-15 17:20] LABS: Path Review Blood Smear Sent to Pathologist
[2024-06-15] MEDS: HYDROCORTISONE SOD SUCC INJ 100 MG VIAL 50 MG IV (17:29)
[2024-06-15] MEDS: PIPER/TAZO 3.375 GM 50 ML IV (17:29)
--- NOTE | 2024-06-15 17:40 | ESHP_ITS ---
Documentation for date of: 06/15/24 [facility] History of Present Illness Chief complaint: AMS History of present illness: 54 Y/O F with PMHx significant for Downs Syndrome, Schizophrenia,blindness, IBS, presents with chief complaint of AMS, last known normal 9 pm last night. Patient in unable to provide history, history taken from caregiver at bedside. Patient has had cough for about five days, noted sore throat. Patient has had diarrhea for 3 days, which is not uncommon for patient due to IBS. Patient was last seen at 9 pm last night. This morning patient was found unresponsive in her bed by caregiver. Patient is brought to ED, patient found to have low GCS, hypoxia with O2 sat 60% on nonrebreather, blood pressure 84 over palp. Patient was started on pressors, intubated. Patient had CODE BLUE, with 1 dose of epi before ROSC. Patient ventilated, started on sedation with propofol. Patient given 7 to 50 mL normal saline bolus and Rocephin in the ED. Blood urine and sputum cultures taken. Chest x-ray showed left-sided opacities. Head CT negative for hemorrhage, mass effect, midline shift. Labs significant for: WBC 13.4, hemoglobin 9.2 sodium 166, chloride 124, bicarb 31.8, BUN 62, creatinine 2.6, EGFR 22, troponin 0.236, albumin 3.2. Urinalysis indicates infection: Leukocyte esterase positive, 36 WBCs, rare bacteria. Initial ABG: pH 7.23, pCO2 69, pO2 153. Patient had low tidal volume/minute volume after intubation, vent settings changed for increased ventilation. Patient started on vancomycin and Zosyn. Patient had high Levophed requirements to maintain MAP, vasopressin added. Hydrocortisone initiated. Viral screen ordered. Patient given 1 L bolus lactated Ringer's. Patient remained unresponsive. ABG showed improvement after changing vent settings: pH 7.34, pCO2 57, pO2 65. Review of Systems Review of Systems ROS Unobtainable: unobtainable due to medical condition and due to endotracheal tube Exam Vital Signs Temp Pulse Resp BP Pulse Ox O2 Del Method FiO2 95.7 F L 60 28 H 98/68 95 Mechanical Ventilation 60 06/15/24 14:40 06/15/24 16:12 06/15/24 14:40 06/15/24 16:12 06/15/24 16:12 06/15/24 14:40 06/15/24 16:12 Narrative Exam PE: Gen: Extremely cachexic. Intubated and sedated. HEENT: Dry mucous membranes. Left eye heavily scarred, right eyeglasses. Scarring around nares. CVS: normal S1 and S2. RRR. No M/R/G. Resp: No rhonchi, rales, crackles or wheezing. Coarse lung sounds. Abd: soft, non-tender, non-distended. MSK: No edema. Multiple old scars/wounds on all extremities, patient has history of self-inflicted injuries, picking at skin. Neuro: Unable to assess. Results: Labs 06/15/24 10:12 06/15/24 10:12 Labs: Short CBC 06/15/24 Range/Units 10:12 WBC 13.4 H (3.6-11.0) Thou/mm3 Hgb 9.2 L (12.0-16.0) g/dL Hct 29.7 L (36.0-46.0) % Plt Count 120 L (140-440) Thou/mm3 BMP 06/15/24 10:12 Sodium 166 H* Potassium 4.5 Chloride 124 H* Carbon Dioxide 31.8 H BUN 62 H Creatinine 2.6 H Glucose 114 H Calcium 8.1 L Cardiac Enzymes 06/15/24 Range/Units 10:12 Troponin I 0.236 H* (0.0-0.045) ng/mL Liver Function 06/15/24 Range/Units 10:12 Total Bilirubin 0.2 L (0.3-1.2) mg/dL AST 50 H (0-34) U/L ALT 31 (10-49) U/L Alkaline Phosphatase 117 H (46-116) U/L Albumin 3.2 L (3.5-5.0) gm/dL Urine 06/15/24 Range/Units 10:55 Urine Color Yellow (Lt Yel-Yel) Urine Clarity Turbid A (Clear/Hazy) Urine pH 6.0 (5.0-7.0) Ur Specific [place] 1.025 (1.001-1.035) Urine Protein 1+ A (Neg - Trace) Urine Glucose (UA) Negative (Negative) ABG Interpretation ABG results: 06/15/24 06/15/24 06/15/24 11:06 14:05 17:00 ABG pH 7.23 L 7.33 L D 7.34 L ABG pCO2 69 H 56 H D 57 H ABG pO2 153 H 67 L D 65 L ABG HCO3 29 H 29 H 30 H ABG O2 Saturation 99 H 92 91 ABG Base Excess 0 3 4 H Quality Measures Quality Measures VTE prophylaxis Medications Home Medications and Allergies Allergies Allergy/AdvReac Type Severity Reaction Status Date / Time No Known Allergies Allergy Unverified 06/15/24 10:42 Visit Medications Acetaminophen (Acetaminophen 325 Mg Tablet) 650 mg PO Q4HR PRN PRN Reason: PAIN SCALE 1-3 (mild Stop: 07/15/24 13:49 Acetaminophen (Acetaminophen Supp 650 Mg Supp) 650 mg AK Q4HR PRN PRN Reason: PAIN SCALE 1-3 (mild Stop: 07/15/24 13:49 Al Hydrox/Mg Hydrox/Simethicone (Mg Hyd/Al Hyd/[place] (Maalox Reg) Susp 30 Ml Udc) 30 ml NG Q4HR PRN PRN Reason: Heartburn or Upset Stomach Stop: 07/15/24 13:49 Heparin Sodium (Porcine) (Heparin Sod Inj 5000 Unit/Ml Vial) 5,000 unit SC Q8HR [facility] Stop: 06/29/24 13:59 Last Admin: 06/15/24 15:01 Dose: 5,000 unit Hydrocortisone Sodium Succinate (Hydrocortisone Sod Succ Inj 100 Mg Vial) 50 mg IV Q6HR [facility] Stop: 07/15/24 17:59 Last Admin: 06/15/24 17:29 Dose: 50 mg Norepinephrine/Dextrose (Levophed In D5w 8mg/250ml) 8 mg in 250 mls @ 2.977 mls/hr IV .Q24H PRN; Protocol PRN Reason: PER PROTOCOL Stop: 07/15/24 10:36 Last Titration: 06/15/24 17:00 Dose: 0.7 mcg/kg/min, 41.673 mls/hr Propofol (Diprivan Ivpb) 1,000 mg in 100 mls @ 0.953 mls/hr IV .Q24H PRN; Protocol PRN Reason: PER PROTOCOL Stop: 07/15/24 10:54 Last Titration: 06/15/24 17:00 Dose: 25 mcg/kg/min, 4.763 mls/hr Vasopressin/Sodium Chloride (Vasostrict/Ns Ivpb) 20 unit in 100 mls @ 9 mls/hr IV .Q11H7M PRN; Protocol PRN Reason: PER PROTOCOL Stop: 07/15/24 13:47 Last Titration: 06/15/24 17:00 Dose: 0.03 unit/min, 9 mls/hr Piperacillin/Tazobactam/Dextrose (Zosyn) 50 mls @ 12.5 mls/hr IV Q12HR LIZ Stop: 06/23/24 08:59 Magnesium Hydroxide (Milk Of Magnesia Susp 30 Ml Udc) 30 ml NG QDAY PRN PRN Reason: CONSTIPATION Stop: 07/15/24 13:49 Nitroglycerin (Nitroglycerin 0.4 Mg Subl Btl #25) 0.4 mg SL Q5MIN PRN PRN Reason: CHEST PAIN Pantoprazole Sodium (Pantoprazole Inj 40 Mg Vial) 40 mg IVP QDAY LIZ Stop: 07/16/24 08:59 Discontinued Medications Etomidate (Etomidate Inj 2 Mg/Ml Vial 10 Ml) 20 mg IVP X1 ONE Stop: 06/15/24 10:05 Last Admin: 06/15/24 10:04 Dose: 20 mg Sodium Chloride (Ns) 500 mls @ 999 mls/hr IV .Q31M ONE Stop: 06/15/24 11:09 Last Infusion: 06/15/24 11:00 Dose: Infused Sodium Chloride (Ns) 500 mls @ 999 mls/hr IV .Q31M ONE Stop: 06/15/24 11:09 Last Infusion: 06/15/24 11:00 Dose: Infused Ceftriaxone Sodium/Dextrose (Rocephin/D5w 1gm Iv Premix) 50 mls @ 100 mls/hr IV X1 ONE Stop: 06/15/24 11:23 Last Infusion: 06/15/24 12:13 Dose: Infused Norepinephrine/Dextrose (Levophed In D5w 8mg/250ml) 8 mg in 250 mls @ 0 mls/hr IV PRN; Protocol PRN Reason: PER PROTOCOL Stop: 07/15/24 10:54 Lactated Ringer's (Lactated Ringers) 500 mls @ 999 mls/hr IV .Q31M ONE Stop: 06/15/24 13:21 Last Infusion: 06/15/24 13:38 Dose: Infused Lactated Ringer's (Lactated Ringers) 500 mls @ 999 mls/hr IV .Q31M ONE Stop: 06/15/24 13:57 Last Infusion: 06/15/24 14:48 Dose: Infused Piperacillin/Tazobactam/Dextrose (Zosyn) 50 mls @ 100 mls/hr IV X1 ONE Stop: 06/15/24 16:59 Last Admin: 06/15/24 17:29 Dose: 100 mls/hr Succinylcholine Chloride (Succinylcholine Inj 20 Mg/Ml Vial 10 Ml) 50 mg IV X1 ONE Stop: 06/15/24 10:06 Last Admin: 06/15/24 11:00 Dose: 50 mg Assessment & Plan Plan 54 Y/O F with PMHx significant for Downs Syndrome, Schizophrenia,blindness, IBS, presents with chief complaint of AMS, last known normal 9 pm last night, admitted to ICU for septic shock requiring pressors and acute hypoxic respiratory failure requiring intubation. Neuro: #Acute encephalopathy Multifactorial: Infection, metabolic abnormalities, hypoxia, shock Patient was last seen normal 9 PM last night, found in bed this morning unresponsive. Patient was found to be in shock, be hypoxic, requiring pressors and ventilation. Chest x-ray, urinalysis, and leukocytosis indicate infection. Patient is metabolic abnormalities: Hypernatremia and hyperchloremia. Initial ABG showed pH 7.23, pCO2 69. Patient is currently sedated on the ventilator. -Treat underlying conditions Cardio: #Shock DDx: Septic shock versus hypovolemic Patient blood pressure was initially 4 over palp. Patient requires extensive pressors, vasopressin and Levophed and high doses. Bedside echo showed good left ventricular contractility, no signs of right ventricular overload. Patient is dehydrated, has had diarrhea for the past 3 days. IVC on bedside echo was variable. Patient received 750 mL normal saline bolus and 1 L of lactated Ringer's bolus. -Titrate pressors as tolerated -Hydrocortisone 50 mg every 6 hours -Treat underlying conditions -Patient on IVF for hypernatremia Pulm: #AHRF DDx: Pneumonia versus aspiration Patient presented saturation 60% on nonrebreather mask. Patient was intubated and ventilated. Initial ABG pH 7.23, pCO2 69, pO2 153. Patient had poor minutes in tidal ventilation, vent settings adjusted. Follow-up ABG improved: pH 7.34, pCO2 57, pO2 65. Chest x-ray showed left-sided consolidation. Patient has history of Down syndrome, risk for aspiration pneumonia. Bacterial and viral pneumonia both possible. -Follow-up sputum culture -Follow-up influenza panel -Vanco and Zosyn -Titrate FiO2 requirements -ABG tomorrow morning -Chest x-ray tomorrow morning GI: #IBS Patient history of IBS. Patient has had diarrhea for past 3 days, not unusual for patient. -Monitor bowel movements -Treat metabolic abnormalities as needed Renal: #ОЛЬГА DDx: Prerenal due to dehydration versus ischemic ATN Patient presented with BUN 62, creatinine 2.6, eGFR 22. No previous labs to compare to. Patient has adequate urine output. Patient appears severely dehydrated exam, has received multiple boluses of fluid, on IVF. Patient was also severely hypotensive, requiring significant pressor support. -Monitor daily labs -Avoid nephrotoxins -Replete fluids -Monitor urine output #Hypernatremia Likely due to severe dehydration. Sodium admission is 166. Patient received 150 mL bolus normal saline in the ED. Patient was then given 1 L bolus lactated Ringer's. -Every 4 hours sodium checks -IVF: D5W 25 mL/h based on patient's weight Endo: #No active issues Heme: #Macrocytic anemia Patient hemoglobin 9.2, MCV 114. No previous labs to compare to. No obvious signs of acute bleeding. -Follow-up folate and B12 levels -Monitor #Leukocytosis Likely due to underlying infection. Possibility of increase due to steroids. -Monitor ID: #UTI Patient urinalysis indicated UTI: Positive leukocyte esterase, rare bacteria, 36 WBCs. Cultures taken. -Vanco and Zosyn -Follow-up urine cultures #Pneumonia Patient in acute hypoxic respiratory failure, chest x-ray with left-sided consolidations. -Vanco and Zosyn Skin/MSK: #No active issues ICU Health maintenance: Mechanical ventilation: Yes Sedation: Propofol and fentanyl Diet: N.p.o. DVT ppx: Heparin GI ppx: Protonix [place]: Yes IV lines: Peripheral IV Central line: Now Arterial line: No Code status: Full code
[2024-06-15 19:14] LABS: Lactate (Lactic Acid) 2.7 mMol/L (0.4-2.0)
[2024-06-15 19:37] LABS: B-Type Natriuretic Peptide 225 pg/mL (0-100)
[2024-06-15] MEDS: DEXTROSE 5%-WATER 1,000 ML 25 ML IV (20:02)
[2024-06-15 20:17] LABS: Influenza A Ag Negative; Influenza B Ag Negative
[2024-06-15 20:53] LABS: Alanine Aminotransferase 54 U/L (10-49); Albumin, Serum 2.8 gm/dL (3.5-5.0); Albumin/Globulin Ratio 0.9 (1.2-2.2); Alkaline Phosphatase 207 U/L (46-116); Anion Gap 11 (7-16); Aspartate Amino Transferase 130 U/L (0-34); BUN/Creatinine Ratio 32 Ratio (12-20); Bilirubin,Total 0.3 mg/dL (0.3-1.2); Blood Urea Nitrogen 57 mg/dL (9-23); Calcium 8.1 mg/dL (8.3-10.6); Calcium (Corrected) 9.1 mg/dL (8.5-10.1); Carbon Dioxide 29.5 mMol/L (20.0-31.0); Chloride 123 mMol/L (98-107); Creatinine (Component) 1.8 mg/dL (0.6-1.3); Glucose 203 mg/dL (74-106); Osmolality,Calculated 343 (275-295); Total Protein 5.8 gm/dL (5.7-8.2); eGFR 33 See Note
[2024-06-15 20:55] LABS: Sodium 163 mMol/L (136-145); Troponin I 0.447 ng/mL (0.0-0.045)
[2024-06-15] MEDS: Norepinephrine/D5W 8mg/250ml 8 MG/250 ML BAG 20.055 MG IV (22:00)
[2024-06-15 22:11] LABS: Reflex Lactate? Y
[2024-06-15 23:19] LABS: Lactic Acid, 3 HR 2.7 mMol/L (0.4-2.0)
[2024-06-15 23:32] LABS: Sodium 159 mMol/L (136-145)
[2024-06-16] VITALS (104 sets, daily range): BP systolic 67–163; BP diastolic 44–90; PULSE 40–64; RESP 25–32; TEMP 36.3–36.9; O2SAT 88–100; BMI 13.6
[2024-06-16] MEDS: fentaNYL 2,500 MCG/250 ML BAG 2,500 MCG/250 ML BAG IV (00:40)
[2024-06-16] MEDS: VASOPRESSIN IN NS IVPB 20 UNIT/100 ML BAG 9 UNIT IV ×2 (00:50→12:23)
[2024-06-16] MEDS: HYDROCORTISONE SOD SUCC INJ 100 MG VIAL 50 MG IV ×5 (01:05→23:17)
[2024-06-16 02:38] LABS: Sodium 158 mMol/L (136-145)
[2024-06-16 02:42] LABS: Troponin I 0.427 ng/mL (0.0-0.045)
[2024-06-16 03:27] LABS: Folate 13.18 ng/mL (>5.38); Vitamin B12 1386 pg/mL (211-911)
[2024-06-16] MEDS: DOPamine/D5w 400 MG IVPB 400 MG/250 ML BAG IV (03:50)
[2024-06-16 04:35] LABS: Base Excess 5 (-3-3); HCO3 31 mEq/L (20-26); Inspired Oxygen, FIO2 60 %; O2 Saturation 88 % (91-98); PCO2 57 mmHg (32.0-48.0); pH, Arterial 7.35 (7.35-7.45)
[2024-06-16 04:38] LABS: Allen Test Performed/OK; Puncture Site Right Radial
[2024-06-16 04:39] LABS: PO2 58 mmHg (83-108)
--- NOTE | 2024-06-16 04:42 | PC.RT ---
Increased fio2 to 80% per abg results. Dr Sanchez aware. Spo2 increased from 88 to 93%.
[2024-06-16] MEDS: HEPARIN SOD INJ 5000 UNIT/ML VIAL SC ×3 (05:25→21:27)
[2024-06-16 06:59] LABS: Sodium 157 mMol/L (136-145)
[2024-06-16] MEDS: PIPER/TAZO 3.375 GM 50 ML IV ×2 (08:11→21:03)
[2024-06-16] MEDS: PANTOPRAZOLE INJ 40 MG VIAL IVP (08:11)
--- NOTE | 2024-06-16 09:00 | XR_ITS ---
Examination: AP chest single view Technique one AP portable semiupright chest single view Exam date and time: June 16, 2024 0533 hrs. Comparison June 15, 2024 Indications: Hypoxic respiratory failure this week, postintubation Findings: Significant hyperexpansion Normal heart size Bilateral extensive lung opacity Endotracheal tube tip 3.6 cm above tiki The orogastric tube is in the stomach satisfactory position Impression: COPD Extensive bilateral pneumonia Endotracheal tube tip 3.6 cm above tiki No pneumothorax
--- NOTE | 2024-06-16 09:55 | EKG_ITS ---
[facility] Test Date: 2024-06-16 Pat Name: MATTHEW MILTNO Department: Room: S254A Gender: Female Psychologist Counseling: HOLLI : 1970 Requested By: Lissy Cai Order Number: [id number] Reading MD: Lissy Cai Measurements Intervals [place] Rate: 50 P: 71 DC: 129 QRS: 76 QRSD: 87 T: 31 QT: 451 QTc: 415 Interpretive Statements SINUS BRADYCARDIA SEPTAL MYOCARDIAL INFARCTION , OF INDETERMINATE AGE Compared to ECG 06/15/2024 11:09:24 Sinus tachycardia no longer present Short DC interval no longer present Myocardial infarct finding still present /store/[id number]
[2024-06-16 10:22] LABS: Basophils % (Auto) 0 % (0-2.5); Eosinophils % (Auto) 0 % (0-10); Hematocrit 29.8 % (36.0-46.0); Hemoglobin 9.3 g/dL (12.0-16.0); Immature Granulocytes % (Auto) 0 % (0-0); Immature Granulocytes Auto 0.04 Thou/mm3 (0.00-0.00); Lymphocytes # (Auto) 0.7 Thou/mm3 (1.0-4.8); Lymphocytes % (Auto) 7 % (10-50); Mean Corpuscular HGB Conc 31.2 g/dl (31.0-37.0); Mean Corpuscular Hemoglobin 34.8 pg (25.0-35.0); Mean Corpuscular Volume 112 fL (80-100); Monocytes # (Auto) 0.2 Thou/mm3 (0.0-0.8); Monocytes % (Auto) 2 % (0-12); Neutrophils # (Auto) 8.9 Thou/mm3 (1.8-7.7); Neutrophils % (Auto) 90 % (37-80); Nucleated Red Blood Cell # 0.02 Thou/mm3 (0.00-0.00); Nucleated Red Blood Cell % 0 /100 WBC (0); Platelet Count 108 Thou/mm3 (140-440); RDW Standard Deviation 67.2 fL (36.4-46.3); Red Blood Count 2.67 Miln/mm3 (4.00-5.20); White Blood Count 9.8 Thou/mm3 (3.6-11.0)
[2024-06-16 10:37] LABS: Sodium 156 mMol/L (136-145)
[2024-06-16 10:37] LABS: Alanine Aminotransferase 58 U/L (10-49); Albumin, Serum 2.9 gm/dL (3.5-5.0); Albumin/Globulin Ratio 0.9 (1.2-2.2); Alkaline Phosphatase 186 U/L (46-116); Anion Gap 11 (7-16); Aspartate Amino Transferase 119 U/L (0-34); BUN/Creatinine Ratio 29 Ratio (12-20); Bilirubin,Total 0.2 mg/dL (0.3-1.2); Blood Urea Nitrogen 44 mg/dL (9-23); Calcium 8.1 mg/dL (8.3-10.6); Carbon Dioxide 28.4 mMol/L (20.0-31.0); Chloride 119 mMol/L (98-107); Creatinine (Component) 1.5 mg/dL (0.6-1.3); Estimated Creatinine Clearance 14.1 mL/min (>60); Globulin 3.1 gm/dL (2.3-3.5); Glucose 176 mg/dL (74-106); Osmolality,Calculated 328 (275-295); Potassium 4.1 mMol/L (3.4-5.1); Sodium 158 mMol/L (136-145); eGFR 42 See Note
[2024-06-16 10:38] LABS: Troponin I 0.406 ng/mL (0.0-0.045)
--- NOTE | 2024-06-16 12:19 | ESPR_ITS ---
<Statement entered by Prateek Topete MD - 06/17/24 11:45> TOTAL CC TIME: 45 MIN I saw and evaluated the patient. I reviewed the resident?s note and agree with findings and plan as documented in the resident?s note. Upon my evaluation, this patient had a high probability of imminent or life- threatening deterioration due to septic shock with pneumonia and acute hypoxic respiratory failure which required my direct attention, intervention, and personal management. This time is exclusive of time spent on procedures, which are documented separately if performed. Patient also developed significant bradycardia over night prior to our shift. She was placed on dopamine. EKG with sinus tach bradycardia no AV block. No obvious offensive medications we are weaning off pressors as tolerated. Bedside informal echo identifies likely severe tricuspid regurgitation with plethoric IVC We will consider diuresing her depending on her hemodynamic status through the day and ability to wean pressors Initially was dehydrated but this appears to be resolved with prior fluid resuscitation Documentation for date of: 06/16/24 Subjective Subjective Interval history: 06/16/2024; Patient was seen and examined by bedside, Overnight patient had bradycardia episodes with heart rate dropping to low 30s for which dopamine drip was started, EKG this a.m. showed sinus bradycardia, patient's medications were reviewed for possible cause but none was found, patient has good urinary output overnight of around 500 cc, labs noted for correction of sodium from 166 to 157 with patient on D5W at 30 cc/hour, fluids were held by night team to avoid rapid correction, troponins trended down, Propofol stopped overnight, and fentanyl was discontinued around 2 PM, patient remains minimally responsive with sinus bradycardia. Continue patient on Zosyn, patient continues to be on Levophed and Vasopressin extravasation was noted around left forarm iv site after which pressors were discontinued and started at a different site, discussion with apiculture teacher, and family regarding need of central line placement for continuation of vasopressors for which consent was obtained and [facility] try lumen catheter was placed. Attempt to wean patient off dopamine was unsuccessful, patient continues to be on dopamine with heart rate around mid 40s. Bedside ultrasound showed engorgement of IVC indicating fluid overload will start patient on diuresis if if unable to wean vasopressors. Exam Vital Signs Temp Pulse Resp BP Pulse Ox O2 Del Method FiO2 98.1 F 53 L 25 H 97/61 100 Mechanical Ventilation 80 06/16/24 12:00 06/16/24 12:15 06/16/24 05:30 06/16/24 12:15 06/16/24 12:15 06/16/24 12:00 06/16/24 12:00 Narrative Exam GEN: Chactic, critically ill, intubated on vasopressors. Neuro: Withdraws/ Grimaces to painful stimuli, non responsive to verbal stimuli, HEENT: NCAT, trachea midline, moist mucous membranes, ET tube, PO tube noted. CVS: RRR, S1S2 present, no M/R/G. No JVD Respi: Mechanically ventilated, coarse breath sounds bilaterally, no wheezing/crackles. ABD: Soft, no grimace to palpation, bowel sounds present in all 4 quadrants. Skin: warm, dry and intact. Extremities: Pulses 3+, no edema/cyanosis. Objective Labs 06/16/24 09:20 06/16/24 18:26 Labs: Laboratory Results - last 24 hr 06/15/24 06/15/24 06/15/24 10:12 14:05 14:56 WBC RBC Hgb Hct MCV MCH MCHC RDW Std Deviation Plt Count Neut % (Auto) Lymph % (Auto) [place] % (Auto) Eos % (Auto) Baso % (Auto) Neut # (Auto) Lymph # (Auto) [place] # (Auto) Eos # (Auto) Baso # (Auto) Immature Gran # (Auto) Absolute Nucleated RBC Immature Gran % Nucleated RBC % Smear Path Review Sent to Pathologist PT 14.3 H INR 1.3 Puncture Site Right Brachial ABG pH 7.33 L D ABG pCO2 56 H D ABG pO2 67 L D ABG HCO3 29 H ABG O2 Saturation 92 ABG Base Excess 3 FiO2 70 Sodium Potassium Chloride Carbon Dioxide Anion Gap BUN Creatinine Estim Creat Clear Calc eGFR BUN/Creatinine Ratio Glucose Calculated Osmolality Lactic Acid Calcium Corrected Calcium Total Bilirubin AST ALT Alkaline Phosphatase Troponin I B-Natriuretic Peptide Total Protein Albumin Globulin Albumin/Globulin Ratio Vitamin B12 Folate Influenza A (Rapid) Influenza B (Rapid) 06/15/24 06/15/24 06/15/24 17:00 19:06 19:25 WBC RBC Hgb Hct MCV MCH MCHC RDW Std Deviation Plt Count Neut % (Auto) Lymph % (Auto) [place] % (Auto) Eos % (Auto) Baso % (Auto) Neut # (Auto) Lymph # (Auto) [place] # (Auto) Eos # (Auto) Baso # (Auto) Immature Gran # (Auto) Absolute Nucleated RBC Immature Gran % Nucleated RBC % Smear Path Review PT INR Puncture Site Right Brachial ABG pH 7.34 L ABG pCO2 57 H ABG pO2 65 L ABG HCO3 30 H ABG O2 Saturation 91 ABG Base Excess 4 H FiO2 60 Sodium Potassium Chloride Carbon Dioxide Anion Gap BUN Creatinine Estim Creat Clear Calc eGFR BUN/Creatinine Ratio Glucose Calculated Osmolality Lactic Acid 2.7 H Calcium Corrected Calcium Total Bilirubin AST ALT Alkaline Phosphatase Troponin I B-Natriuretic Peptide 225 H Total Protein Albumin Globulin Albumin/Globulin Ratio Vitamin B12 1386 H Folate 13.18 Influenza A (Rapid) Negative Influenza B (Rapid) Negative 06/15/24 06/15/24 06/16/24 20:19 23:07 02:07 WBC RBC Hgb Hct MCV MCH MCHC RDW Std Deviation Plt Count Neut % (Auto) Lymph % (Auto) [place] % (Auto) Eos % (Auto) Baso % (Auto) Neut # (Auto) Lymph # (Auto) [place] # (Auto) Eos # (Auto) Baso # (Auto) Immature Gran # (Auto) Absolute Nucleated RBC Immature Gran % Nucleated RBC % Smear Path Review PT INR Puncture Site ABG pH ABG pCO2 ABG pO2 ABG HCO3 ABG O2 Saturation ABG Base Excess FiO2 Sodium 163 H* 159 H 158 H Potassium 4.0 D Chloride 123 H* Carbon Dioxide 29.5 Anion Gap 11 BUN 57 H Creatinine 1.8 H D Estim Creat Clear Calc 11.0 L eGFR 33 L BUN/Creatinine Ratio 32 H Glucose 203 H D Calculated Osmolality 343 H Lactic Acid 2.7 H Calcium 8.1 L Corrected Calcium 9.1 Total Bilirubin 0.3 AST 130 H ALT 54 H Alkaline Phosphatase 207 H D Troponin I 0.447 H* D 0.427 H* B-Natriuretic Peptide Total Protein 5.8 Albumin 2.8 L Globulin 3.0 Albumin/Globulin Ratio 0.9 L Vitamin B12 Folate Influenza A (Rapid) Influenza B (Rapid) 06/16/24 06/16/24 06/16/24 04:04 06:27 09:20 WBC 9.8 RBC 2.67 L Hgb 9.3 L Hct 29.8 L MCV 112 H MCH 34.8 MCHC 31.2 RDW Std Deviation 67.2 H Plt Count 108 L Neut % (Auto) 90 H Lymph % (Auto) 7 L [place] % (Auto) 2 Eos % (Auto) 0 Baso % (Auto) 0 Neut # (Auto) 8.9 H Lymph # (Auto) 0.7 L [place] # (Auto) 0.2 Eos # (Auto) 0.0 Baso # (Auto) 0.0 Immature Gran # (Auto) 0.04 H Absolute Nucleated RBC 0.02 H Immature Gran % 0 Nucleated RBC % 0 Smear Path Review PT INR Puncture Site Right Radial ABG pH 7.35 ABG pCO2 57 H ABG pO2 58 L* ABG HCO3 31 H ABG O2 Saturation 88 L ABG Base Excess 5 H FiO2 60 Sodium 157 H 158 H Potassium 4.1 Chloride 119 H Carbon Dioxide 28.4 Anion Gap 11 BUN 44 H Creatinine 1.5 H Estim Creat Clear Calc 14.1 L eGFR 42 L BUN/Creatinine Ratio 29 H Glucose 176 H Calculated Osmolality 328 H Lactic Acid Calcium 8.1 L Corrected Calcium 9.0 Total Bilirubin 0.2 L AST 119 H ALT 58 H Alkaline Phosphatase 186 H D Troponin I B-Natriuretic Peptide Total Protein 6.0 Albumin 2.9 L Globulin 3.1 Albumin/Globulin Ratio 0.9 L Vitamin B12 Folate Influenza A (Rapid) Influenza B (Rapid) 06/16/24 09:59 WBC RBC Hgb Hct MCV MCH MCHC RDW Std Deviation Plt Count Neut % (Auto) Lymph % (Auto) [place] % (Auto) Eos % (Auto) Baso % (Auto) Neut # (Auto) Lymph # (Auto) [place] # (Auto) Eos # (Auto) Baso # (Auto) Immature Gran # (Auto) Absolute Nucleated RBC Immature Gran % Nucleated RBC % Smear Path Review PT INR Puncture Site ABG pH ABG pCO2 ABG pO2 ABG HCO3 ABG O2 Saturation ABG Base Excess FiO2 Sodium 156 H Potassium Chloride Carbon Dioxide Anion Gap BUN Creatinine Estim Creat Clear Calc eGFR BUN/Creatinine Ratio Glucose Calculated Osmolality Lactic Acid Calcium Corrected Calcium Total Bilirubin AST ALT Alkaline Phosphatase Troponin I 0.406 H* B-Natriuretic Peptide Total Protein Albumin Globulin Albumin/Globulin Ratio Vitamin B12 Folate Influenza A (Rapid) Influenza B (Rapid) ABG Interpretation ABG results: 06/15/24 06/15/24 06/15/24 11:06 14:05 17:00 ABG pH 7.23 L 7.33 L D 7.34 L ABG pCO2 69 H 56 H D 57 H ABG pO2 153 H 67 L D 65 L ABG HCO3 29 H 29 H 30 H ABG O2 Saturation 99 H 92 91 ABG Base Excess 0 3 4 H 06/16/24 04:04 ABG pH 7.35 ABG pCO2 57 H ABG pO2 58 L* ABG HCO3 31 H ABG O2 Saturation 88 L ABG Base Excess 5 H Quality Measures Quality Measures VTE prophylaxis Assessment & Plan Assessment Current Active Medications: Generic Name Dose Route Start Last Admin Trade Name Freq PRN Reason Stop Dose Admin Acetaminophen 650 mg 06/15/24 13:50 Acetaminophen 325 Mg Tablet PO 07/15/24 13:49 Q4HR PRN PAIN SCALE 1-3 (mild Acetaminophen 650 mg 06/15/24 13:50 Acetaminophen Supp 650 Mg Supp MD 07/15/24 13:49 Q4HR PRN PAIN SCALE 1-3 (mild Al Hydrox/Mg Hydrox/Simethicone 30 ml 06/15/24 13:50 Mg Hyd/Al Hyd/[place] (Maalox Reg) Susp 30 Ml Udc NG 07/15/24 13:49 Q4HR PRN Heartburn or Upset Stomach Heparin Sodium (Porcine) 5,000 unit 06/15/24 14:00 06/16/24 05:25 Heparin Sod Inj 5000 Unit/Ml Vial SC 06/29/24 13:59 5,000 unit Q8HR LIZ Administration Hydrocortisone Sodium Succinate 50 mg 06/15/24 18:00 06/16/24 05:26 Hydrocortisone Sod Succ Inj 100 Mg Vial IV 07/15/24 17:59 50 mg Q6HR LIZ Administration Propofol 1,000 mg in 100 mls @ 0.953 mls/hr 06/15/24 10:55 06/16/24 02:00 Diprivan Ivpb IV 07/15/24 10:54 0 mcg/kg/min .Q24H PRN 0 mls/hr PER PROTOCOL Titration Protocol 5 MCG/KG/MIN Vasopressin/Sodium Chloride 20 unit in 100 mls @ 9 mls/hr 06/15/24 13:48 06/16/24 00:50 Vasostrict/Ns Ivpb IV 07/15/24 13:47 0.03 unit/min .Q11H7M PRN 9 mls/hr PER PROTOCOL Administration Protocol 0.03 UNIT/MIN Piperacillin/Tazobactam/Dextrose 50 mls @ 12.5 mls/hr 06/16/24 09:00 06/16/24 12:14 Zosyn IV 06/23/24 08:59 Infused Q12HR LIZ Infusion Fentanyl Citrate 2,500 mcg in 250 mls @ 2.5 mls/hr 06/15/24 18:25 06/16/24 12:00 Sublimaze Inj 2,500 Mcg/250 Ml Bag IV 06/20/24 18:24 25 mcg/hr .Q24H PRN 2.5 mls/hr PER PROTOCOL Titration Protocol 25 MCG/HR Dextrose 1,000 mls @ 25 mls/hr 06/15/24 18:30 06/16/24 01:45 D5w IV 0 mls/hr .Q24H LIZ Infusion Norepinephrine/Dextrose 8 mg in 250 mls @ 1.791 mls/hr 06/15/24 22:04 Levophed In D5w 8mg/250ml IV 07/15/24 22:03 .Q24H PRN PER PROTOCOL Protocol 0.05 MCG/KG/MIN Dopamine HCl/Dextrose 400 mg in 250 mls @ 3.581 mls/hr 06/16/24 03:35 06/16/24 12:00 Intropin In D5w Ivpb IV 07/16/24 03:34 9 mcg/kg/min .Q24H LIZ 6.446 mls/hr Titration Protocol 5 MCG/KG/MIN Influenza Virus Vaccine Quadrival 0.5 ml 06/17/24 09:00 Influenza Virus Quadrivalent 0.5 Ml Syringe IMi 06/17/24 09:01 .ONCE ONE Magnesium Hydroxide 30 ml 06/15/24 13:50 Milk Of Magnesia Susp 30 Ml Udc NG 07/15/24 13:49 QDAY PRN CONSTIPATION Nitroglycerin 0.4 mg 06/15/24 13:50 Nitroglycerin 0.4 Mg Subl Btl #25 SL Q5MIN PRN CHEST PAIN Pantoprazole Sodium 40 mg 06/16/24 09:00 06/16/24 08:11 Pantoprazole Inj 40 Mg Vial IVP 07/16/24 08:59 40 mg QDAY LIZ Administration Pharmacy Consult 1 each 06/15/24 18:27 Pharmacy To Consult Pneumovacc XX 07/15/24 18:26 PRN PRN CONSULT Pneumococcal Polyvalent Vaccine 0.5 ml 06/17/24 09:00 Pneumoc 20-Karen Conj-Dip Crm/Pf 0.5 Ml Syringe IMi 06/17/24 09:01 .ONCE ONE Plan 54 Y/O F with PMHx significant for Downs Syndrome, Schizophrenia,blindness, IBS, presents with chief complaint of AMS, last known normal 9 pm last night, admitted to ICU for septic shock requiring pressors and acute hypoxic respiratory failure requiring intubation. Neuro: #Acute encephalopathy Multifactorial: Infection, metabolic abnormalities, hypoxia, shock Off sedation, withdraws to pain -Treat underlying conditions Cardio: #Shock DDx: Septic shock versus hypovolemic Patient blood pressure was initially 4 over palp. Patient requires extensive pressors, vasopressin and Levophed and high doses. Bedside echo showed good left ventricular contractility, no signs of right ventricular overload. Patient is dehydrated, has had diarrhea for the past 3 days. IVC on bedside echo was variable. Patient received 750 mL normal saline bolus and 1 L of lactated Ringer's bolus. -Titrate pressors as tolerated -Hydrocortisone 50 mg every 6 hours -Treat underlying conditions -Patient on IVF for hypernatremia Pulm: #AHRF DDx: Pneumonia versus aspiration Patient presented saturation 60% on nonrebreather mask. Patient was intubated and ventilated. Initial ABG pH 7.23, pCO2 69, pO2 153. Patient had poor minutes in tidal ventilation, vent settings adjusted. Follow-up ABG improved: pH 7.34, pCO2 57, pO2 65. Chest x-ray showed left-sided consolidation. Patient has history of Down syndrome, risk for aspiration pneumonia. Bacterial and viral pneumonia both possible. -Follow-up sputum culture -Follow-up influenza panel -DC vancomycin, continue Zosyn -Titrate FiO2 requirements -ABG tomorrow morning -Chest x-ray tomorrow morning GI: #IBS Patient history of IBS. Patient has had diarrhea for past 3 days, not unusual for patient. -Monitor bowel movements -Treat metabolic abnormalities as needed Renal: #ОЛЬГА DDx: Prerenal due to dehydration versus ischemic ATN Patient presented with BUN 62, creatinine 2.6, eGFR 22. No previous labs to compare to. Patient has adequate urine output. Patient appears severely dehydrated exam, has received multiple boluses of fluid, on IVF. Patient was also severely hypotensive, requiring significant pressor support. -Monitor daily labs -Avoid nephrotoxins -Replete fluids -Monitor urine output #Hypernatremia Likely due to severe dehydration. Sodium admission is 166. Patient received 150 mL bolus normal saline in the ED. Patient was then given 1 L bolus lactated Ringer's. -Every 4 hours sodium checks -IVF: D5W 25 mL/h based on patient's weight Endo: #No active issues Heme: #Macrocytic anemia Patient hemoglobin 9.2, MCV 114. No previous labs to compare to. No obvious signs of acute bleeding. -Follow-up folate and B12 levels -Monitor #Leukocytosis Likely due to underlying infection. Possibility of increase due to steroids. -Monitor ID: #[id number] Patient urinalysis indicated UTI: Positive leukocyte esterase, rare bacteria, 36 WBCs. Cultures taken. -On Zosyn -Follow-up urine cultures #Pneumonia Patient in acute hypoxic respiratory failure, chest x-ray with left-sided consolidations. -On Zosyn Skin/MSK: #No active issues Lines: RIJ/PIV DVT prophylaxis: Heparin sc TID G.I prophylaxis: Pantoprazole Code: Full code Patient's plan of care discussed with attending Dr. Efrem Cai, PGY-3
--- NOTE | 2024-06-16 12:45 | PC.NURSE ---
report received from Elsy DUKE, i will call Elsy when it is time to bring the pt down.
[2024-06-16 14:58] LABS: Sodium 159 mMol/L (136-145)
[2024-06-16] MEDS: PHENTOLAMINE 5 MG SC (15:39)
[2024-06-16] MEDS: STERILE WATER 60 ML SC (15:47)
--- NOTE | 2024-06-16 16:08 | PC.SS ---
Update: patient participated in EGK today.
--- NOTE | 2024-06-16 16:21 | XR_ITS ---
Examination: AP chest single view Technique one AP portable supine chest single view Exam date and time: June 16, 2024 1830 hrs. Comparison 01/14/2024 Indications: Post central line placement today Findings: Bilateral pneumonia again noted Enlarged cardiac contour again depicted with prominent vascular congestion Endotracheal tube tip 3.5 cm above tiki Right internal jugular central line tip SVC satisfactory position Orogastric tube in the stomach satisfactory position Impression: Interval right internal jugular central line tip SVC satisfactory position, no pneumothorax
--- NOTE | 2024-06-16 16:26 | PC.DIETICIAN ---
Nutrition prescription If vasopressor needs decrease, consider: Trophic feeds of Jevity 1.2 at 10 ml/hr via OG tube by pump. If no IV fluids, water flushes of 25 ml/hr (or per MD). Once more stable: Advance 10 ml every 12 hrs to goal rate of 35 ml/hr x 24 hrs.
[2024-06-16] MEDS: Norepinephrine/D5W 8mg/250ml 8 MG/250 ML BAG 1.074 MG IV (19:00)
[2024-06-16 19:26] LABS: Sodium 159 mMol/L (136-145)
--- NOTE | 2024-06-16 20:55 | PC.NURSE ---
MD Salazar stated can use central line
[2024-06-16] MEDS: LIDOCAINE HCL 1% 20 ML VIAL 5 ML INFL (20:56)
--- NOTE | 2024-06-16 20:56 | ESOP_ITS ---
<Statement entered by Prateek Topete MD - 06/17/24 11:38> I was present for the critical and chahal portions of the procedure and was immediately available to provide assistance. Procedures Procedure Date / Time 06/16/24 15:40 Central Line Placement Right IJ: Indication(s): shock Informed consent obtained: obtained from surrogate decision maker Time out done, and the following verified: correct patient, side and site, procedure, patient position and implants and/or equipment Patient placed on monitor/pulse ox: Yes Hand Hygiene: scrub and soap & water Max Sterile Barrier Techniques used: cap, mask, sterile gown, sterile gloves and sterile full body drape Central line prep: Chlorhexidine scrub Local anesthesia used: lidocaine 1% Amount of anesthesia used (mL): 8 Ultrasound used for placement: Yes Sterile Technique if Ultrasound used, including sterile gel: yes Central line lumen inserted: triple Post procedure: sutured in place, good blood return, all ports aspirated, flushed, capped and sterile dressing applied Post procedure x-ray: tip of catheter in good position and no pneumothorax seen Patient tolerated procedure: well and no complications EBL(ml): 10 Complications: none
[2024-06-16] MEDS: DEXTROSE 5%-WATER 1,000 ML 30 ML IV (20:57)
[2024-06-17] VITALS (107 sets, daily range): BP systolic 64–129; BP diastolic 40–92; PULSE 39–101; RESP 15–35; TEMP 37.1–37.5; O2SAT 85–100; BMI 14.9
[2024-06-17 03:20] LABS: Hepatitis A Antibody IgM Non Reactive (Non React); Hepatitis B Surface Antigen Non Reactive (Non React)
[2024-06-17 03:21] LABS: Hepatitis B Core Antibody IgM Non Reactive (Non React); Hepatitis C Antibody Non Reactive (Non React)
[2024-06-17 04:05] LABS: HIV (1&2) Antibody Rapid Non-Reactive
[2024-06-17] MEDS: DOPamine/D5w 400 MG IVPB 400 MG/250 ML BAG 5.014 MG IV ×2 (04:18→19:43)
--- NOTE | 2024-06-17 04:49 | PC.RT ---
Anchorfast was too large for pt face and neck leading to slipping off the cheeks. Despite attempts to tighten and reposition ETT continued to be pushed forward which would cause a leak. Due to compromised ETT, anchorfast was removed and ETT was secured using tape @2430. RT Benjamin and RN Wesley at bedside to assist. No complications.
[2024-06-17 04:56] LABS: Base Excess 9 (-3-3); HCO3 35 mEq/L (20-26); Inspired Oxygen, FIO2 60 %; O2 Saturation 96 % (91-98); PCO2 54 mmHg (32.0-48.0); PO2 77 mmHg (83-108); pH, Arterial 7.42 (7.35-7.45)
[2024-06-17 05:08] LABS: Allen Test Performed/OK; Puncture Site Right Radial
[2024-06-17] MEDS: HYDROCORTISONE SOD SUCC INJ 100 MG VIAL 50 MG IV ×3 (05:09→18:19)
[2024-06-17] MEDS: HEPARIN SOD INJ 5000 UNIT/ML VIAL SC ×3 (05:11→21:22)
[2024-06-17 07:45] LABS: Basophils % (Auto) 0 % (0-2.5); Eosinophils % (Auto) 0 % (0-10); Immature Granulocytes % (Auto) 1 % (0-0); Immature Granulocytes Auto 0.05 Thou/mm3 (0.00-0.00); Lymphocytes # (Auto) 0.7 Thou/mm3 (1.0-4.8); Lymphocytes % (Auto) 8 % (10-50); Mean Corpuscular HGB Conc 31.5 g/dl (31.0-37.0); Mean Corpuscular Hemoglobin 34.6 pg (25.0-35.0); Mean Corpuscular Volume 110 fL (80-100); Monocytes # (Auto) 0.2 Thou/mm3 (0.0-0.8); Monocytes % (Auto) 2 % (0-12); Neutrophils # (Auto) 8.2 Thou/mm3 (1.8-7.7); Neutrophils % (Auto) 90 % (37-80); Nucleated Red Blood Cell # 0.02 Thou/mm3 (0.00-0.00); Nucleated Red Blood Cell % 0 /100 WBC (0); Platelet Count 110 Thou/mm3 (140-440); RDW Standard Deviation 65.5 fL (36.4-46.3); Red Blood Count 2.37 Miln/mm3 (4.00-5.20); White Blood Count 9.2 Thou/mm3 (3.6-11.0)
[2024-06-17 07:50] LABS: Hemoglobin 8.2 g/dL (12.0-16.0)
[2024-06-17] MEDS: PIPER/TAZO 3.375 GM 50 ML IV ×2 (08:19→20:26)
[2024-06-17] MEDS: PANTOPRAZOLE INJ 40 MG VIAL IVP (08:19)
[2024-06-17 08:31] LABS: Alanine Aminotransferase 59 U/L (10-49); Albumin, Serum 2.9 gm/dL (3.5-5.0); Alkaline Phosphatase 145 U/L (46-116); Anion Gap 7 (7-16); Aspartate Amino Transferase 98 U/L (0-34); BUN/Creatinine Ratio 43 Ratio (12-20); Bilirubin,Total 0.2 mg/dL (0.3-1.2); Blood Urea Nitrogen 47 mg/dL (9-23); Calcium 8.1 mg/dL (8.3-10.6); Carbon Dioxide 32.1 mMol/L (20.0-31.0); Chloride 117 mMol/L (98-107); Creatinine (Component) 1.1 mg/dL (0.6-1.3); Globulin 2.9 gm/dL (2.3-3.5); Glucose 175 mg/dL (74-106); Magnesium 2.1 mg/dL (1.6-2.6); Osmolality,Calculated 325 (275-295); Phosphorous 3.1 mg/dL (2.4-5.1); Potassium 3.5 mMol/L (3.4-5.1); Sodium 156 mMol/L (136-145); Total Protein 5.8 gm/dL (5.7-8.2); eGFR > 60 See Note
--- NOTE | 2024-06-17 09:00 | XR_ITS ---
Examination: AP chest single view Technique one AP portable semiupright chest single view Exam date and time: June 17, 2024 0602 hrs. Comparison June 16, 2024 Indications: Pneumonia ARDS this week with hypoxic respiratory failure Findings: Extensive bilateral pneumonia or pulmonary edema again depicted No significant cardiac enlargement The endotracheal tube tip projects at the origin of the right mainstem bronchus Right internal jugular central line tip SVC satisfactory position The orogastric tube is in the stomach satisfactory position Impression: Recommend retracting the endotracheal tube 2 cm
[2024-06-17 09:10] LABS: Sodium 156 mMol/L (136-145)
[2024-06-17] MEDS: ALBUMIN HUMAN 25% IVPB 12.5 GM/50 ML BTL IV (11:31)
[2024-06-17] MEDS: FUROSEMIDE INJ 200 MG in SODIUM CHLORIDE 0.9% 80 ML IV (11:41)
[2024-06-17 12:47] LABS: Sodium 157 mMol/L (136-145)
--- NOTE | 2024-06-17 13:20 | ESPR_ITS ---
<Statement entered by Prateek Topete MD - 06/18/24 08:32> TOTAL CC TIME: 45 MIN I saw and evaluated the patient. I reviewed the resident?s note and agree with findings and plan as documented in the resident?s note. Upon my evaluation, this patient had a high probability of imminent or life- threatening deterioration due to septic shock which required my direct attention, intervention, and personal management. This time is exclusive of time spent on procedures, which are documented separately if performed. Given the severe tricuspid regurgitation and venous congestion identified on ultrasound we will start albumin and Lasix. Hopefully this will improve the patient's hemodynamics and we will be able to wean pressors further. She remains relatively bradycardic requiring dopamine Documentation for date of: 06/17/24 Subjective Subjective Interval history: 54 Y/O F with PMHx significant for Downs Syndrome, Schizophrenia,blindness, IBS, presents with chief complaint of AMS, last known normal 9 pm last night. Patient in unable to provide history, history taken from caregiver at bedside. Patient has had cough for about five days, noted sore throat. Patient has had diarrhea for 3 days, which is not uncommon for patient due to IBS. Patient was last seen at 9 pm last night. This morning patient was found unresponsive in her bed by caregiver. Patient is brought to ED, patient found to have low GCS, hypoxia with O2 sat 60% on nonrebreather, blood pressure 84 over palp. Patient was started on pressors, intubated. Patient had CODE BLUE, with 1 dose of epi before ROSC. Patient ventilated, started on sedation with propofol. Patient given 7 to 50 mL normal saline bolus and Rocephin in the ED. Blood urine and sputum cultures taken. Chest x-ray showed left-sided opacities. Head CT negative for hemorrhage, mass effect, midline shift. Labs significant for: WBC 13.4, hemoglobin 9.2 sodium 166, chloride 124, bicarb 31.8, BUN 62, creatinine 2.6, EGFR 22, troponin 0.236, albumin 3.2. Urinalysis indicates infection: Leukocyte esterase positive, 36 WBCs, rare bacteria. Initial ABG: pH 7.23, pCO2 69, pO2 153. Patient had low tidal volume/minute volume after intubation, vent settings changed for increased ventilation. Patient started on vancomycin and Zosyn. Patient had high Levophed requirements to maintain MAP, vasopressin added. Hydrocortisone initiated. Viral screen ordered. Patient given 1 L bolus lactated Ringer's. Patient remained unresponsive. ABG showed improvement after changing vent settings: pH 7.34, pCO2 57, pO2 65. 06/16/2024; Patient was seen and examined by bedside, Overnight patient had bradycardia episodes with heart rate dropping to low 30s for which dopamine drip was started, EKG this a.m. showed sinus bradycardia, patient's medications were reviewed for possible cause but none was found, patient has good urinary output overnight of around 500 cc, labs noted for correction of sodium from 166 to 157 with patient on D5W at 30 cc/hour, fluids were held by night team to avoid rapid correction, troponins trended down, Propofol stopped overnight, and fentanyl was discontinued around 2 PM, patient remains minimally responsive with sinus bradycardia. Continue patient on Zosyn, patient continues to be on Levophed and Vasopressin extravasation was noted around left forarm iv site after which pressors were discontinued and started at a different site, discussion with clinical trial assistant, and family regarding need of central line placement for continuation of vasopressors for which consent was obtained and RIJ tri-lumen catheter was placed. Attempt to wean patient off dopamine was unsuccessful, patient continues to be on dopamine with heart rate around mid 40s. Bedside ultrasound showed engorgement of IVC indicating fluid overload will start patient on diuresis if if unable to wean vasopressors. 06/17/2024: Patient seen and examined at bedside. Patient remains minimally responsive despite being off sedatives. Patient remains bradycardic and hypotensive. On dopamine and levophed drips. Albumin and lasix drip initiated. Patient on D5W for hyponatremia, improving. Kidney function improving. Plan to initiate trickle feeds, will advance when off pressors. ABG pH 7.42, pCO2 54, pO2 77 with FiO2 60%. Exam Vital Signs Temp Pulse Resp BP Pulse Ox O2 Del Method FiO2 99.1 F 42 L 25 H 98/56 L 97 Mechanical Ventilation 60 06/17/24 12:00 06/17/24 12:15 06/16/24 05:30 06/17/24 12:15 06/17/24 12:15 06/17/24 12:00 06/17/24 12:00 Narrative Exam PE: Gen: Extremely cachexic. Intubated and sedated. HEENT: Dry mucous membranes. Left eye heavily scarred, right eye glassy. Scarring around nares. CVS: normal S1 and S2. RRR. No M/R/G. Resp: No rhonchi, rales, crackles or wheezing. Coarse lung sounds. Abd: soft, non-tender, non-distended. MSK: No edema. Multiple old scars/wounds on all extremities, patient has history of self-inflicted injuries, picking at skin. Neuro: Unable to assess. Objective Labs 06/17/24 05:13 06/17/24 12:29 Labs: Laboratory Results - last 24 hr 06/16/24 06/16/24 06/16/24 06:27 06:27 14:39 WBC RBC Hgb Hct MCV MCH MCHC RDW Std Deviation Plt Count Neut % (Auto) Lymph % (Auto) [place] % (Auto) Eos % (Auto) Baso % (Auto) Neut # (Auto) Lymph # (Auto) [place] # (Auto) Eos # (Auto) Baso # (Auto) Immature Gran # (Auto) Absolute Nucleated RBC Immature Gran % Nucleated RBC % Puncture Site ABG pH ABG pCO2 ABG pO2 ABG HCO3 ABG O2 Saturation ABG Base Excess FiO2 Sodium 159 H Potassium Chloride Carbon Dioxide Anion Gap BUN Creatinine Estim Creat Clear Calc eGFR BUN/Creatinine Ratio Glucose Calculated Osmolality Calcium Corrected Calcium Phosphorus Magnesium Total Bilirubin AST ALT Alkaline Phosphatase Total Protein Albumin Globulin Albumin/Globulin Ratio Hepatitis A IgM Ab Hep Bs Antigen Hep B Core IgM Ab Hepatitis C Antibody HIV 1&2 Antibody Rapid Cancelled Non-Reactive 06/16/24 06/17/24 06/17/24 18:26 04:36 05:13 WBC 9.2 RBC 2.37 L Hgb 8.2 L Hct 26.0 L MCV 110 H MCH 34.6 MCHC 31.5 RDW Std Deviation 65.5 H Plt Count 110 L Neut % (Auto) 90 H Lymph % (Auto) 8 L [place] % (Auto) 2 Eos % (Auto) 0 Baso % (Auto) 0 Neut # (Auto) 8.2 H Lymph # (Auto) 0.7 L [place] # (Auto) 0.2 Eos # (Auto) 0.0 Baso # (Auto) 0.0 Immature Gran # (Auto) 0.05 H Absolute Nucleated RBC 0.02 H Immature Gran % 1 H Nucleated RBC % 0 Puncture Site Right Radial ABG pH 7.42 ABG pCO2 54 H ABG pO2 77 L ABG HCO3 35 H ABG O2 Saturation 96 ABG Base Excess 9 H FiO2 60 Sodium 159 H 156 H Potassium 3.5 D Chloride 117 H Carbon Dioxide 32.1 H Anion Gap 7 BUN 47 H Creatinine 1.1 Estim Creat Clear Calc 21.0 L eGFR > 60 BUN/Creatinine Ratio 43 H Glucose 175 H Calculated Osmolality 325 H Calcium 8.1 L Corrected Calcium 9.0 Phosphorus 3.1 Magnesium 2.1 Total Bilirubin 0.2 L AST 98 H ALT 59 H Alkaline Phosphatase 145 H D Total Protein 5.8 Albumin 2.9 L Globulin 2.9 Albumin/Globulin Ratio 1.0 L Hepatitis A IgM Ab Non Reactive Hep Bs Antigen Non Reactive Hep B Core IgM Ab Non Reactive Hepatitis C Antibody Non Reactive HIV 1&2 Antibody Rapid 06/17/24 06/17/24 08:40 12:29 WBC RBC Hgb Hct MCV MCH MCHC RDW Std Deviation Plt Count Neut % (Auto) Lymph % (Auto) [place] % (Auto) Eos % (Auto) Baso % (Auto) Neut # (Auto) Lymph # (Auto) [place] # (Auto) Eos # (Auto) Baso # (Auto) Immature Gran # (Auto) Absolute Nucleated RBC Immature Gran % Nucleated RBC % Puncture Site ABG pH ABG pCO2 ABG pO2 ABG HCO3 ABG O2 Saturation ABG Base Excess FiO2 Sodium 156 H 157 H Potassium Chloride Carbon Dioxide Anion Gap BUN Creatinine Estim Creat Clear Calc eGFR BUN/Creatinine Ratio Glucose Calculated Osmolality Calcium Corrected Calcium Phosphorus Magnesium Total Bilirubin AST ALT Alkaline Phosphatase Total Protein Albumin Globulin Albumin/Globulin Ratio Hepatitis A IgM Ab Hep Bs Antigen Hep B Core IgM Ab Hepatitis C Antibody HIV 1&2 Antibody Rapid ABG Interpretation ABG results: 06/15/24 06/15/24 06/15/24 11:06 14:05 17:00 ABG pH 7.23 L 7.33 L D 7.34 L ABG pCO2 69 H 56 H D 57 H ABG pO2 153 H 67 L D 65 L ABG HCO3 29 H 29 H 30 H ABG O2 Saturation 99 H 92 91 ABG Base Excess 0 3 4 H 06/16/24 06/17/24 04:04 04:36 ABG pH 7.35 7.42 ABG pCO2 57 H 54 H ABG pO2 58 L* 77 L ABG HCO3 31 H 35 H ABG O2 Saturation 88 L 96 ABG Base Excess 5 H 9 H Quality Measures Quality Measures VTE prophylaxis Assessment & Plan Assessment Current Active Medications: Generic Name Dose Route Start Last Admin Trade Name Freq PRN Reason Stop Dose Admin Acetaminophen 650 mg 06/15/24 13:50 Acetaminophen 325 Mg Tablet PO 07/15/24 13:49 Q4HR PRN PAIN SCALE 1-3 (mild Acetaminophen 650 mg 06/15/24 13:50 Acetaminophen Supp 650 Mg Supp ID 07/15/24 13:49 Q4HR PRN PAIN SCALE 1-3 (mild Al Hydrox/Mg Hydrox/Simethicone 30 ml 06/15/24 13:50 Mg Hyd/Al Hyd/[place] (Maalox Reg) Susp 30 Ml Udc NG 07/15/24 13:49 Q4HR PRN Heartburn or Upset Stomach Heparin Sodium (Porcine) 5,000 unit 06/15/24 14:00 06/17/24 05:11 Heparin Sod Inj 5000 Unit/Ml Vial SC 06/29/24 13:59 5,000 unit Q8HR LIZ Administration Hydrocortisone Sodium Succinate 50 mg 06/15/24 18:00 06/17/24 11:31 Hydrocortisone Sod Succ Inj 100 Mg Vial IV 07/15/24 17:59 50 mg Q6HR LIZ Administration Propofol 1,000 mg in 100 mls @ 0.953 mls/hr 06/15/24 10:55 06/16/24 02:00 Diprivan Ivpb IV 07/15/24 10:54 0 mcg/kg/min .Q24H PRN 0 mls/hr PER PROTOCOL Titration Protocol 5 MCG/KG/MIN Vasopressin/Sodium Chloride 20 unit in 100 mls @ 9 mls/hr 06/15/24 13:48 06/16/24 22:29 Vasostrict/Ns Ivpb IV 07/15/24 13:47 0 unit/min .Q11H7M PRN 0 mls/hr PER PROTOCOL Titration Protocol 0.03 UNIT/MIN Piperacillin/Tazobactam/Dextrose 50 mls @ 12.5 mls/hr 06/16/24 09:00 06/17/24 12:32 Zosyn IV 06/23/24 08:59 Infused Q12HR LIZ Infusion Fentanyl Citrate 2,500 mcg in 250 mls @ 2.5 mls/hr 06/15/24 18:25 06/16/24 14:00 Sublimaze Inj 2,500 Mcg/250 Ml Bag IV 06/20/24 18:24 0 mcg/hr .Q24H PRN 0 mls/hr PER PROTOCOL Titration Protocol 25 MCG/HR Norepinephrine/Dextrose 8 mg in 250 mls @ 1.791 mls/hr 06/15/24 22:04 06/17/24 12:00 Levophed In D5w 8mg/250ml IV 07/15/24 22:03 0.09 mcg/kg/min .Q24H PRN 3.223 mls/hr PER PROTOCOL Titration Protocol 0.05 MCG/KG/MIN Dopamine HCl/Dextrose 400 mg in 250 mls @ 3.581 mls/hr 06/16/24 03:35 06/17/24 12:00 Intropin In D5w Ivpb IV 07/16/24 03:34 7 mcg/kg/min .Q24H LIZ 5.014 mls/hr Titration Protocol 5 MCG/KG/MIN Dextrose 1,000 mls @ 30 mls/hr 06/16/24 20:15 06/17/24 06:00 D5w IV 06/17/24 20:14 30 mls/hr .Q24H ONE Infusion Furosemide 200 mg/ Sodium 100 mls @ 5 mls/hr 06/17/24 10:56 06/17/24 11:41 Chloride IV 07/17/24 10:55 5 mls/hr .Q20H LIZ Administration Influenza Virus Vaccine Quadrival 0.5 ml 06/20/24 09:00 Influenza Virus Quadrivalent 0.5 Ml Syringe IMi 06/20/24 09:01 .ONCE ONE Magnesium Hydroxide 30 ml 06/15/24 13:50 Milk Of Magnesia Susp 30 Ml Udc NG 07/15/24 13:49 QDAY PRN CONSTIPATION Nitroglycerin 0.4 mg 06/15/24 13:50 Nitroglycerin 0.4 Mg Subl Btl #25 SL Q5MIN PRN CHEST PAIN Pantoprazole Sodium 40 mg 06/16/24 09:00 06/17/24 08:19 Pantoprazole Inj 40 Mg Vial IVP 07/16/24 08:59 40 mg QDAY LIZ Administration Pharmacy Consult 1 each 06/15/24 18:27 Pharmacy To Consult Pneumovacc XX 07/15/24 18:26 PRN PRN CONSULT Pneumococcal Polyvalent Vaccine 0.5 ml 06/20/24 09:00 Pneumoc 20-Karen Conj-Dip Crm/Pf 0.5 Ml Syringe IMi 06/20/24 09:01 .ONCE ONE Plan 54 Y/O F with PMHx significant for Downs Syndrome, Schizophrenia,blindness, IBS, presents with chief complaint of AMS, last known normal 9 pm last night, admitted to ICU for septic shock requiring pressors and acute hypoxic respiratory failure requiring intubation. Neuro: #Acute encephalopathy Multifactorial: Infection, metabolic abnormalities, hypoxia, shock Off sedation, withdraws to pain -Treat underlying conditions Cardio: #Shock DDx: Septic shock versus cardiogenic Patient blood pressure was initially 84 by palpation. Patient requires extensive pressors, vasopressin and Levophed and high doses. Bedside echo showed good left ventricular contractility, no signs of right ventricular overload. Patient is dehydrated, has had diarrhea for the past 3 days. IVC on bedside echo was variable. Patient received 750 mL normal saline bolus and 1 L of lactated Ringer's bolus. Bedside echo showed IVC congestion, patient continues to require pressors. -Titrate pressors as tolerated -Hydrocortisone 50 mg every 6 hours -Treat underlying conditions -Patient on IVF (D5W) for hypernatremia -Albumin given with Lasix drip #Sinus bradycardia Patient developed sinus bradycardia, dropping to low 30's. EKG only showed sinus bradycardia. Patient started on dopamine drip, unable to be titrated off. Heart rate stable in high 40's. -Maintain dopamine drip, titrate as needed -telemonitoring Pulm: #AHRF DDx: Community acquired pneumonia versus aspiration Patient presented saturation 60% on nonrebreather mask. Patient was intubated and ventilated. Initial ABG pH 7.23, pCO2 69, pO2 153. Patient had poor minutes in tidal ventilation, vent settings adjusted. Follow-up ABG improved: pH 7.34, pCO2 57, pO2 65. Chest x-ray showed left-sided consolidation. Patient has history of Down syndrome, risk for aspiration pneumonia. Bacterial and viral pneumonia both possible. Influenza panel negative. MRSA screen negative. -Follow-up sputum culture -DC vancomycin, continue Zosyn -Titrate FiO2 requirements GI: #Severe protein malnutrition Patient BMI 14.9. Patient unable to provide history, per caregiver patient has good oral intake most times, has been malnourished for years due to chronic diarrhea, has not had significant weight loss recently. Patient has very little muscle mass, temporal wasting, sunken eyes. -Dietary consult, appreciate recommendations -Tube feeds, trickle for now -daily labs #IBS Patient history of IBS. Patient has had diarrhea for past 3 days, not unusual for patient. -Monitor bowel movements -Treat metabolic abnormalities as needed #Tube feeds Will initiate trickle feeds, advance when off pressors. Renal: #ОЛЬГА DDx: Prerenal due to dehydration versus ischemic ATN Patient presented with BUN 62, creatinine 2.6, eGFR 22. No previous labs to compare to. Patient has adequate urine output. Patient appears severely dehydrated exam, has received multiple boluses of fluid, on IVF. Patient was also severely hypotensive, requiring significant pressor support. -Lasix drip -Monitor daily labs -Avoid nephrotoxins -Monitor urine output #Hypernatremia Likely due to severe dehydration. Sodium admission is 166. Patient received 150 mL bolus normal saline in the ED. Patient was then given 1 L bolus lactated Ringer's. Improving with D5W IVF. Down to 157. -Every 4 hours sodium checks -IVF: D5W 30 mL/h based on patient's weight Endo: #No active issues Heme: #Macrocytic anemia Patient hemoglobin 9.2, MCV 114. No previous labs to compare to. No obvious signs of acute bleeding. Folate and B12 not depleted. -Monitor #Leukocytosis Likely due to underlying infection. Possibility of increase due to steroids. -Monitor ID: #[id number] Patient urinalysis indicated UTI: Positive leukocyte esterase, rare bacteria, 36 WBCs. Cultures grew mckeon-sensitive E. Coli. -On Zosyn #Pneumonia Patient in acute hypoxic respiratory failure, chest x-ray with left-sided consolidations. -On Zosyn (started 06/16) Skin/MSK: #No active issues Lines: RIJ/PIV DVT prophylaxis: Heparin sc TID G.I prophylaxis: Pantoprazole Code: Full code Patient's plan of care discussed with attending Dr. Topete. Live Cerrato MD PGY-1
--- NOTE | 2024-06-17 15:20 | PC.SS ---
Update: Patient remains intubated. Patient receiving pressors. OG tube in place for feeding.
[2024-06-17 18:30] LABS: Anion Gap 11 (7-16); BUN/Creatinine Ratio 34 Ratio (12-20); Blood Urea Nitrogen 37 mg/dL (9-23); Calcium 8.9 mg/dL (8.3-10.6); Carbon Dioxide 37.5 mMol/L (20.0-31.0); Chloride 109 mMol/L (98-107); Creatinine (Component) 1.1 mg/dL (0.6-1.3); Glucose 200 mg/dL (74-106); Osmolality,Calculated 325 (275-295); Potassium 2.9 mMol/L (3.4-5.1); Sodium 157 mMol/L (136-145); eGFR > 60 See Note
[2024-06-17] MEDS: POTASSIUM CHLORIDE 10% 20 MEQ/15 ML UDC 40 MEQ NG (19:33)
[2024-06-17] MEDS: POTASSIUM CHLORIDE 10% 20 MEQ/15 ML UDC NG (20:32)
[2024-06-17] MEDS: Norepinephrine/D5W 8mg/250ml 8 MG/250 ML BAG 7.521 MG IV (21:21)
[2024-06-17 21:26] LABS: Sodium 156 mMol/L (136-145)
[2024-06-18] VITALS (102 sets, daily range): BP systolic 61–118; BP diastolic 39–79; PULSE 47–107; RESP 0–41; TEMP 37.2–37.5; O2SAT 79–99; BMI 14.2
[2024-06-18] MEDS: HYDROCORTISONE SOD SUCC INJ 100 MG VIAL 50 MG IV ×4 (00:09→18:16)
[2024-06-18 01:27] LABS: Potassium 3.3 mMol/L (3.4-5.1); Sodium 157 mMol/L (136-145)
[2024-06-18] MEDS: POTASSIUM CHLORIDE 10% 20 MEQ/15 ML UDC NG (04:08)
[2024-06-18 04:23] LABS: Base Excess 22 (-3-3); HCO3 47 mEq/L (20-26); Inspired Oxygen, FIO2 60 %; O2 Saturation 96 % (91-98); PCO2 57 mmHg (32.0-48.0); PO2 73 mmHg (83-108); pH, Arterial 7.53 (7.35-7.45)
[2024-06-18 04:29] LABS: Allen Test Performed/OK; Puncture Site Right Radial
[2024-06-18] MEDS: HEPARIN SOD INJ 5000 UNIT/ML VIAL SC ×3 (05:51→20:21)
[2024-06-18 06:09] LABS: Basophils # (Auto) 0.1 Thou/mm3 (0.0-0.2); Basophils % (Auto) 1 % (0-2.5); Eosinophils # (Auto) 0.1 Thou/mm3 (0.0-0.5); Eosinophils % (Auto) 0 % (0-10); Hematocrit 31.9 % (36.0-46.0); Hemoglobin 10.5 g/dL (12.0-16.0); Immature Granulocytes % (Auto) 1 % (0-0); Lymphocytes # (Auto) 0.7 Thou/mm3 (1.0-4.8); Lymphocytes % (Auto) 5 % (10-50); Mean Corpuscular HGB Conc 32.9 g/dl (31.0-37.0); Mean Corpuscular Hemoglobin 34.5 pg (25.0-35.0); Mean Corpuscular Volume 105 fL (80-100); Monocytes # (Auto) 0.4 Thou/mm3 (0.0-0.8); Monocytes % (Auto) 3 % (0-12); Neutrophils # (Auto) 13.6 Thou/mm3 (1.8-7.7); Neutrophils % (Auto) 90 % (37-80); Nucleated Red Blood Cell # 0.09 Thou/mm3 (0.00-0.00); Nucleated Red Blood Cell % 1 /100 WBC (0); Platelet Count 145 Thou/mm3 (140-440); RDW Standard Deviation 59.4 fL (36.4-46.3); Red Blood Count 3.04 Miln/mm3 (4.00-5.20); White Blood Count 15.1 Thou/mm3 (3.6-11.0)
[2024-06-18 06:46] LABS: Alanine Aminotransferase 76 U/L (10-49); Albumin, Serum 4.1 gm/dL (3.5-5.0); Albumin/Globulin Ratio 1.2 (1.2-2.2); Alkaline Phosphatase 161 U/L (46-116); Anion Gap 12 (7-16); Aspartate Amino Transferase 100 U/L (0-34); BUN/Creatinine Ratio 33 Ratio (12-20); Bilirubin,Total 0.6 mg/dL (0.3-1.2); Blood Urea Nitrogen 43 mg/dL (9-23); Calcium 8.9 mg/dL (8.3-10.6); Calcium (Corrected) 8.9 mg/dL (8.5-10.1); Carbon Dioxide > 40.0 mMol/L (20.0-31.0); Chloride 102 mMol/L (98-107); Creatinine (Component) 1.3 mg/dL (0.6-1.3); Estimated Creatinine Clearance 16.9 mL/min (>60); Globulin 3.4 gm/dL (2.3-3.5); Glucose 231 mg/dL (74-106); Magnesium 1.8 mg/dL (1.6-2.6); Osmolality,Calculated 323 (275-295); Phosphorous 2.5 mg/dL (2.4-5.1); Potassium 3.5 mMol/L (3.4-5.1); Sodium 154 mMol/L (136-145); Total Protein 7.5 gm/dL (5.7-8.2); eGFR 49 See Note
[2024-06-18] MEDS: ACETAzolaMIDE SOD 500 MG in SODIUM CHLORIDE 0.9% (P) 50 ML 100 MG IV (08:08)
[2024-06-18] MEDS: PIPER/TAZO 3.375 GM 50 ML IV (08:08)
[2024-06-18] MEDS: PANTOPRAZOLE INJ 40 MG VIAL IVP (08:08)
--- NOTE | 2024-06-18 09:00 | XR_ITS ---
Examination: AP chest single view Technique: AP portable semiupright chest single view Exam date and time: June 18, 2024 0525 hrs. Comparison June 17, 2024 Indications: COPD, hypoxic respiratory failure, pneumonia, postintubation this week Findings: Extensive bilateral pneumonia and/or pulmonary edema Significant hyperexpansion Normal heart size Endotracheal tube tip 2.7 cm above tiki The orogastric tube is in the stomach in satisfactory position Right internal jugular central line tip SVC Impression: COPD No significant change in bilateral pneumonia and/or pulmonary edema, clinical correlation advised
[2024-06-18 09:36] LABS: Sodium 154 mMol/L (136-145)
--- NOTE | 2024-06-18 09:54 | ECHO_ITS ---
Transthoracic Echo Report Ht (in): 48 Wt (lb): 46 Exam Location: Portable Status: Inpatient Ict Trainer: Gloria Lang Indications: Procedure Performed: BP: 90 / 57 HR: 57 Rhythm: Bradycardia Technical Quality: Fair MEASUREMENTS (Male / Female) Normal Values 2D ECHO LV Diastolic Diameter PLAX 3.4 cm 4.2 - 5.9 / 3.9 - 5.3 cm LV Systolic Diameter PLAX 2.5 cm IVS Diastolic Thickness 0.6 cm 0.6 - 1.0 / 0.6 - 0.9 cm LVPW Diastolic Thickness 0.6 cm 0.6 - 1.0 / 0.6 - 0.9 cm LV Relative Wall Thickness 0.3 LVOT Diameter 1.7 cm M-MODE Aortic Root Diameter MM 2.2 cm LA Systolic Diameter MM 2.3 cm LA Ao Ratio MM 1.0 AV Cusp Separation MM 1.5 cm DOPPLER AV Peak Velocity 117.0 cm/s AV Peak Gradient 5.5 mmHg AV Mean Gradient 3.0 mmHg AV Velocity Time Integral 18.4 cm LVOT Peak Velocity 99.8 cm/s LVOT Peak Gradient 4.0 mmHg LVOT Velocity Time Integral 15.9 cm LVOT Cardiac Index 2464.8 cm?/min?m? AV Area Cont Eq vti 2.0 cm? AV Area Cont Eq pk 1.9 cm? MV Peak Velocity 77.5 cm/s MV Peak Gradient 2.4 mmHg MV Mean Velocity 35.9 cm/s MV Mean Gradient 1.0 mmHg MV Area PHT 3.4 cm? Mitral E Point Velocity 55.8 cm/s Mitral A Point Velocity 52.9 cm/s Mitral E to A Ratio 1.1 LV E' Lateral Velocity 6.8 cm/s Mitral E to LV E' Lateral Ratio 8.2 LV E' Septal Velocity 6.6 cm/s Mitral E to LV E' Septal Ratio 8.4 TR Peak Velocity 220.3 cm/s TR Peak Gradient 19.4 mmHg FINDINGS Left Ventricle Normal left ventricular size, wall thickness, systolic function with no obvious regional wall motion abnormalities. The ejection fraction is visually estimated at 50-55%. Right Ventricle The right ventricle is normal in size and systolic function. The estimated right ventricular systoli c pressure, 30mmHg. RAP 5. Left Atrium The left atrium is normal by two-dimensional, color flow and Doppler imaging with no structural abnormalities, no thrombus formation present. Right Atrium The right atrium is normal by two-dimensional imaging, color flow and Doppler imaging with no struct ural abnormalities, no thrombus formation present. Atrial Septum The interatrial septum appears normal with no evidence of a shunt. Aorta The aorta is normal by two-dimensional, color flow and Doppler interrogation. Mitral Valve The mitral valve is normal by two-dimensional, color flow and Doppler interrogation. There is trace mitral valve regurgitation. Aortic Valve The aortic valve is trileaflet. Mild sclerosis without stenosis. There is mild aortic valve regurg itation. Tricuspid Valve The tricuspid valve is normal by two-dimensional, color flow and Doppler interrogation. There is mil d to moderate tricuspid valve regurgitation. Pulmonic Valve There is trace pulmonic valve regurgitation. Vessels The pulmonary artery appears normal. The inferior vena cava pulmonary and hepatic veins appear susy l. Pericardium The pericardium is normal by two-dimensional imaging. There is no significant pericardial effusion. CONCLUSIONS Indication: Hypotension Normal LV size and function. Estimated EF 55-60% Normal RV size and function. Estimated RVSP 30mmHg Mild AV sclerosis without stenosis. Trace MR, PI. Mild AI. Mild to moderate TR Teja Kaiser (Electronically Signed) Final Date: 18 June 2024 19:13
[2024-06-18] MEDS: AMPICILLIN/SULBAC INJ 1.5 GM in SODIUM CHLORIDE 0.9% (P) 50 ML IV ×2 (10:13→20:21)
--- NOTE | 2024-06-18 12:07 | ESPR_ITS ---
<Statement entered by Prateek Topete MD - 06/19/24 14:16> TOTAL CC TIME: 45 MIN I saw and evaluated the patient. I reviewed the resident?s note and agree with findings and plan as documented in the resident?s note. Upon my evaluation, this patient had a high probability of imminent or life- threatening deterioration due to septic shock which required my direct attention, intervention, and personal management. This time is exclusive of time spent on procedures, which are documented separately if performed. Pneumonia is improving however she still has high pressor requirements despite being on hydrocortisone Will discuss placing an arterial line if feasible with caregiver to be sure that blood pressure is accurate Central venous catheter remains in place due to high pressor requirements bradycardia slowly improving but occasionally back in the 40s Documentation for date of: 06/18/24 Subjective Subjective Interval history: 54 Y/O F with PMHx significant for Downs Syndrome, Schizophrenia,blindness, IBS, presents with chief complaint of AMS, last known normal 9 pm last night. Patient in unable to provide history, history taken from caregiver at bedside. Patient has had cough for about five days, noted sore throat. Patient has had diarrhea for 3 days, which is not uncommon for patient due to IBS. Patient was last seen at 9 pm last night. This morning patient was found unresponsive in her bed by caregiver. Patient is brought to ED, patient found to have low GCS, hypoxia with O2 sat 60% on nonrebreather, blood pressure 84 over palp. Patient was started on pressors, intubated. Patient had CODE BLUE, with 1 dose of epi before ROSC. Patient ventilated, started on sedation with propofol. Patient given 7 to 50 mL normal saline bolus and Rocephin in the ED. Blood urine and sputum cultures taken. Chest x-ray showed left-sided opacities. Head CT negative for hemorrhage, mass effect, midline shift. Labs significant for: WBC 13.4, hemoglobin 9.2 sodium 166, chloride 124, bicarb 31.8, BUN 62, creatinine 2.6, EGFR 22, troponin 0.236, albumin 3.2. Urinalysis indicates infection: Leukocyte esterase positive, 36 WBCs, rare bacteria. Initial ABG: pH 7.23, pCO2 69, pO2 153. Patient had low tidal volume/minute volume after intubation, vent settings changed for increased ventilation. Patient started on vancomycin and Zosyn. Patient had high Levophed requirements to maintain MAP, vasopressin added. Hydrocortisone initiated. Viral screen ordered. Patient given 1 L bolus lactated Ringer's. Patient remained unresponsive. ABG showed improvement after changing vent settings: pH 7.34, pCO2 57, pO2 65. 06/16/2024; Patient was seen and examined by bedside, Overnight patient had bradycardia episodes with heart rate dropping to low 30s for which dopamine drip was started, EKG this a.m. showed sinus bradycardia, patient's medications were reviewed for possible cause but none was found, patient has good urinary output overnight of around 500 cc, labs noted for correction of sodium from 166 to 157 with patient on D5W at 30 cc/hour, fluids were held by night team to avoid rapid correction, troponins trended down, Propofol stopped overnight, and fentanyl was discontinued around 2 PM, patient remains minimally responsive with sinus bradycardia. Continue patient on Zosyn, patient continues to be on Levophed and Vasopressin extravasation was noted around left forarm iv site after which pressors were discontinued and started at a different site, discussion with lead programmer, and family regarding need of central line placement for continuation of vasopressors for which consent was obtained and [facility] tri-lumen catheter was placed. Attempt to wean patient off dopamine was unsuccessful, patient continues to be on dopamine with heart rate around mid 40s. Bedside ultrasound showed engorgement of IVC indicating fluid overload will start patient on diuresis if if unable to wean vasopressors. 06/17/2024: Patient seen and examined at bedside. Patient remains minimally responsive despite being off sedatives. Patient remains bradycardic and hypotensive. On dopamine and levophed drips. Albumin and lasix drip initiated. Patient on D5W for hyponatremia, improving. Kidney function improving. Plan to initiate trickle feeds, will advance when off pressors. ABG pH 7.42, pCO2 54, pO2 77 with FiO2 60%. 06/18/2024: Patient seen and examined at bedside. Patient more responsive, withdraws from pain, does not open eyes. Patient remains bradycardic and hypotensive requiring dopamine and levophed. Patient had multiple large volume urine voiding overnight. Morning labs indicate a contraction alkalosis, lasix held for the day. Will have patient compensate with respirations, placed on spontaneous pressure support. Antibiotics narrowed from Zosyn to Unasyn. CXR showed improvement in consolidation, FiO2 titrated down to 40%. Exam Vital Signs Temp Pulse Resp BP Pulse Ox O2 Del Method FiO2 99.1 F 57 L 25 H 90/57 L 96 Mechanical Ventilation 40 06/18/24 08:00 06/18/24 11:00 06/16/24 05:30 06/18/24 11:00 06/18/24 11:00 06/18/24 08:00 06/18/24 10:15 Narrative Exam PE: Gen: Extremely cachexic. Intubated and sedated. HEENT: Dry mucous membranes. Left eye heavily scarred, right eye glassy. Scarring around nares. CVS: normal S1 and S2. RRR. No M/R/G. Resp: No rhonchi, rales, crackles or wheezing. Coarse lung sounds. Abd: soft, non-tender, non-distended. MSK: No edema. Multiple old scars/wounds on all extremities, patient has history of self-inflicted injuries, picking at skin. Neuro: GCS 6T, withdraws from pain. Objective Labs 06/18/24 05:31 06/18/24 09:16 Labs: Laboratory Results - last 24 hr 06/17/24 06/17/24 06/17/24 12:29 17:42 21:06 WBC RBC Hgb Hct MCV MCH MCHC RDW Std Deviation Plt Count Neut % (Auto) Lymph % (Auto) [place] % (Auto) Eos % (Auto) Baso % (Auto) Neut # (Auto) Lymph # (Auto) [place] # (Auto) Eos # (Auto) Baso # (Auto) Immature Gran # (Auto) Absolute Nucleated RBC Immature Gran % Nucleated RBC % Puncture Site ABG pH ABG pCO2 ABG pO2 ABG HCO3 ABG O2 Saturation ABG Base Excess FiO2 Sodium 157 H 157 H 156 H Potassium 2.9 L D Chloride 109 H Carbon Dioxide 37.5 H Anion Gap 11 BUN 37 H Creatinine 1.1 Estim Creat Clear Calc 21.0 L eGFR > 60 BUN/Creatinine Ratio 34 H Glucose 200 H Calculated Osmolality 325 H Calcium 8.9 Corrected Calcium Phosphorus Magnesium Total Bilirubin AST ALT Alkaline Phosphatase Total Protein Albumin Globulin Albumin/Globulin Ratio 06/18/24 06/18/24 06/18/24 00:53 04:04 05:31 WBC 15.1 H D RBC 3.04 L Hgb 10.5 L D Hct 31.9 L MCV 105 H MCH 34.5 MCHC 32.9 RDW Std Deviation 59.4 H Plt Count 145 D Neut % (Auto) 90 H Lymph % (Auto) 5 L [place] % (Auto) 3 Eos % (Auto) 0 Baso % (Auto) 1 Neut # (Auto) 13.6 H Lymph # (Auto) 0.7 L [place] # (Auto) 0.4 Eos # (Auto) 0.1 Baso # (Auto) 0.1 Immature Gran # (Auto) 0.20 H Absolute Nucleated RBC 0.09 H Immature Gran % 1 H Nucleated RBC % 1 H Puncture Site Right Radial ABG pH 7.53 H D ABG pCO2 57 H ABG pO2 73 L ABG HCO3 47 H ABG O2 Saturation 96 ABG Base Excess 22 H FiO2 60 Sodium 157 H 154 H Potassium 3.3 L 3.5 Chloride 102 Carbon Dioxide > 40.0 H Anion Gap 12 BUN 43 H Creatinine 1.3 Estim Creat Clear Calc 16.9 L eGFR 49 L BUN/Creatinine Ratio 33 H Glucose 231 H Calculated Osmolality 323 H Calcium 8.9 Corrected Calcium 8.9 Phosphorus 2.5 Magnesium 1.8 Total Bilirubin 0.6 AST 100 H ALT 76 H Alkaline Phosphatase 161 H Total Protein 7.5 Albumin 4.1 D Globulin 3.4 Albumin/Globulin Ratio 1.2 06/18/24 09:16 WBC RBC Hgb Hct MCV MCH MCHC RDW Std Deviation Plt Count Neut % (Auto) Lymph % (Auto) [place] % (Auto) Eos % (Auto) Baso % (Auto) Neut # (Auto) Lymph # (Auto) [place] # (Auto) Eos # (Auto) Baso # (Auto) Immature Gran # (Auto) Absolute Nucleated RBC Immature Gran % Nucleated RBC % Puncture Site ABG pH ABG pCO2 ABG pO2 ABG HCO3 ABG O2 Saturation ABG Base Excess FiO2 Sodium 154 H Potassium Chloride Carbon Dioxide Anion Gap BUN Creatinine Estim Creat Clear Calc eGFR BUN/Creatinine Ratio Glucose Calculated Osmolality Calcium Corrected Calcium Phosphorus Magnesium Total Bilirubin AST ALT Alkaline Phosphatase Total Protein Albumin Globulin Albumin/Globulin Ratio ABG Interpretation ABG results: 06/15/24 06/15/24 06/15/24 11:06 14:05 17:00 ABG pH 7.23 L 7.33 L D 7.34 L ABG pCO2 69 H 56 H D 57 H ABG pO2 153 H 67 L D 65 L ABG HCO3 29 H 29 H 30 H ABG O2 Saturation 99 H 92 91 ABG Base Excess 0 3 4 H 06/16/24 06/17/24 06/18/24 04:04 04:36 04:04 ABG pH 7.35 7.42 7.53 H D ABG pCO2 57 H 54 H 57 H ABG pO2 58 L* 77 L 73 L ABG HCO3 31 H 35 H 47 H ABG O2 Saturation 88 L 96 96 ABG Base Excess 5 H 9 H 22 H Quality Measures Quality Measures VTE prophylaxis Assessment & Plan Assessment Current Active Medications: Generic Name Dose Route Start Last Admin Trade Name Freq PRN Reason Stop Dose Admin Acetaminophen 650 mg 06/15/24 13:50 Acetaminophen 325 Mg Tablet PO 07/15/24 13:49 Q4HR PRN PAIN SCALE 1-3 (mild Acetaminophen 650 mg 06/15/24 13:50 Acetaminophen Supp 650 Mg Supp HI 07/15/24 13:49 Q4HR PRN PAIN SCALE 1-3 (mild Al Hydrox/Mg Hydrox/Simethicone 30 ml 06/15/24 13:50 Mg Hyd/Al Hyd/[place] (Maalox Reg) Susp 30 Ml Udc NG 07/15/24 13:49 Q4HR PRN Heartburn or Upset Stomach Heparin Sodium (Porcine) 5,000 unit 06/15/24 14:00 06/18/24 05:51 Heparin Sod Inj 5000 Unit/Ml Vial SC 06/29/24 13:59 5,000 unit Q8HR LIZ Administration Hydrocortisone Sodium Succinate 50 mg 06/15/24 18:00 06/18/24 05:53 Hydrocortisone Sod Succ Inj 100 Mg Vial IV 07/15/24 17:59 50 mg Q6HR LIZ Administration Vasopressin/Sodium Chloride 20 unit in 100 mls @ 9 mls/hr 06/15/24 13:48 06/16/24 22:29 Vasostrict/Ns Ivpb IV 07/15/24 13:47 0 unit/min .Q11H7M PRN 0 mls/hr PER PROTOCOL Titration Protocol 0.03 UNIT/MIN Norepinephrine/Dextrose 8 mg in 250 mls @ 1.791 mls/hr 06/15/24 22:04 06/18/24 11:48 Levophed In D5w 8mg/250ml IV 07/15/24 22:03 0.37 mcg/kg/min .Q24H PRN 13.251 mls/hr PER PROTOCOL Titration Protocol 0.05 MCG/KG/MIN Dopamine HCl/Dextrose 400 mg in 250 mls @ 3.581 mls/hr 06/16/24 03:35 06/18/24 11:00 Intropin In D5w Ivpb IV 07/16/24 03:34 5 mcg/kg/min .Q24H LIZ 3.581 mls/hr Titration Protocol 5 MCG/KG/MIN Furosemide 200 mg/ Sodium 100 mls @ 5 mls/hr 06/17/24 10:56 06/18/24 07:15 Chloride IV 07/17/24 10:55 0 mls/hr .Q20H LIZ Infusion Ampicillin Sodium/Sulbactam 50 mls @ 100 mls/hr 06/18/24 10:15 06/18/24 11:10 Sodium 1.5 gm/ Sodium Chloride IV 06/25/24 10:14 Infused Q12HR LIZ Infusion Influenza Virus Vaccine Quadrival 0.5 ml 06/20/24 09:00 Influenza Virus Quadrivalent 0.5 Ml Syringe IMi 06/20/24 09:01 .ONCE ONE Magnesium Hydroxide 30 ml 06/15/24 13:50 Milk Of Magnesia Susp 30 Ml Udc NG 07/15/24 13:49 QDAY PRN CONSTIPATION Nitroglycerin 0.4 mg 06/15/24 13:50 Nitroglycerin 0.4 Mg Subl Btl #25 SL Q5MIN PRN CHEST PAIN Pantoprazole Sodium 40 mg 06/16/24 09:00 06/18/24 08:08 Pantoprazole Inj 40 Mg Vial IVP 07/16/24 08:59 40 mg QDAY LIZ Administration Pharmacy Consult 1 each 06/15/24 18:27 Pharmacy To Consult Pneumovacc XX 07/15/24 18:26 PRN PRN CONSULT Pneumococcal Polyvalent Vaccine 0.5 ml 06/20/24 09:00 Pneumoc 20-Karen Conj-Dip Crm/Pf 0.5 Ml Syringe IMi 06/20/24 09:01 .ONCE ONE Plan 54 Y/O F with PMHx significant for Downs Syndrome, Schizophrenia,blindness, IBS, presents with chief complaint of AMS, last known normal 9 pm last night, admitted to ICU for septic shock requiring pressors and acute hypoxic respiratory failure requiring intubation. Neuro: #Acute encephalopathy Multifactorial: Infection, metabolic abnormalities, hypoxia, shock Off sedation, withdraws to pain -Treat underlying conditions Cardio: #Shock DDx: Septic shock versus cardiogenic Patient blood pressure was initially 84 by palpation. Patient requires extensive pressors, vasopressin and Levophed and high doses. Bedside echo showed good left ventricular contractility, no signs of right ventricular overload. Patient is dehydrated, has had diarrhea for the past 3 days. IVC on bedside echo was variable. Patient received 750 mL normal saline bolus and 1 L of lactated Ringer's bolus. Bedside echo showed IVC congestion, patient continues to require pressors. Patient recieved Albumin with Lasix drip. -Titrate pressors as tolerated -Hydrocortisone 50 mg every 6 hours -Treat underlying conditions #Sinus bradycardia Patient developed sinus bradycardia, dropping to low 30's. EKG only showed sinus bradycardia. Patient started on dopamine drip, unable to be titrated off. Heart rate stable in high 40's. -Maintain dopamine drip, titrate as needed -telemonitoring Pulm: #AHRF DDx: Community acquired pneumonia versus aspiration Patient presented saturation 60% on nonrebreather mask. Patient was intubated and ventilated. Initial ABG pH 7.23, pCO2 69, pO2 153. Patient had poor minutes in tidal ventilation, vent settings adjusted. Follow-up ABG improved: pH 7.34, pCO2 57, pO2 65. Chest x-ray showed left-sided consolidation. Patient has history of Down syndrome, risk for aspiration pneumonia. Bacterial and viral pneumonia both possible. Influenza panel negative. MRSA screen negative. -Follow-up sputum culture -Zosyn (06/16-06/18) changed to Unasyn (06/18-) -Titrate FiO2 requirements -Pressure support to allow respiratory compensation GI: #Severe protein malnutrition Patient BMI 14.9. Patient unable to provide history, per caregiver patient has good oral intake most times, has been malnourished for years due to chronic diarrhea, has not had significant weight loss recently. Patient has very little muscle mass, temporal wasting, sunken eyes. -Dietary consult, appreciate recommendations -Tube feeds, will advance -daily labs #IBS Patient history of IBS. Patient had diarrhea for 3 days prior to admission, not unusual for patient. -Monitor bowel movements -Treat metabolic abnormalities as needed #Tube feeds Trickle feeds initiated, advance 10 ml every 12 hrs to goal rate of 35 ml/hr x 24 hrs. Renal: #ОЛЬГА DDx: Prerenal due to dehydration versus ischemic ATN Patient presented with BUN 62, creatinine 2.6, eGFR 22. No previous labs to compare to. Patient has adequate urine output. Patient appears severely dehydrated exam, has received multiple boluses of fluid, on IVF. Patient was also severely hypotensive, requiring significant pressor support. Patient recieved albumin and lasix drip, lasix held next day -Will start Lasix 10mg BID tomorrow -Monitor daily labs -Avoid nephrotoxins -Monitor urine output #Hypernatremia Likely due to severe dehydration. Sodium admission is 166. Patient received 150 mL bolus normal saline in the ED. Patient was then given 1 L bolus lactated Ringer's. Improving with D5W IVF. Down to 157. Down to 154, fluids held. Gentle diuresis. -Every 4 hours sodium checks Endo: #No active issues Heme: #Macrocytic anemia Patient hemoglobin 9.2, MCV 114. No previous labs to compare to. No obvious signs of acute bleeding. Folate and B12 not depleted. -Monitor #Leukocytosis Likely due to underlying infection. Possibility of increase due to steroids. -Monitor ID: #[id number] Patient urinalysis indicated UTI: Positive leukocyte esterase, rare bacteria, 36 WBCs. Cultures grew mckeon-sensitive E. Coli. -On Unasyn #Pneumonia Patient in acute hypoxic respiratory failure, chest x-ray with left-sided consolidations. -On Unasyn (started 06/16) Skin/MSK: #No active issues Lines: RIJ/PIV DVT prophylaxis: Heparin sc TID G.I prophylaxis: Pantoprazole Code: Full code Patient's plan of care discussed with attending Dr. Topete. Live Cerrato MD PGY-1
[2024-06-18 12:42] LABS: Sodium 153 mMol/L (136-145)
--- NOTE | 2024-06-18 15:06 | PC.SS ---
Update: Patient remains intubated. OG in place for feedings. Patient receiving pressors
[2024-06-18 18:21] LABS: Sodium 154 mMol/L (136-145)
[2024-06-18] MEDS: Norepinephrine/D5W 8mg/250ml 8 MG/250 ML BAG 14.683 MG IV (19:21)
[2024-06-18 21:52] LABS: Sodium 156 mMol/L (136-145)
[2024-06-19] VITALS (105 sets, daily range): BP systolic 71–142; BP diastolic 46–81; PULSE 40–107; RESP 7–34; TEMP 36.6–39.4; O2SAT 87–100; BMI 14.3
[2024-06-19] MEDS: HYDROCORTISONE SOD SUCC INJ 100 MG VIAL 50 MG IV ×4 (00:01→18:04)
[2024-06-19 04:30] LABS: Base Excess 18 (-3-3); HCO3 42 mEq/L (20-26); Inspired Oxygen, FIO2 21 %; O2 Saturation 93 % (91-98); PCO2 50 mmHg (32.0-48.0); PO2 61 mmHg (83-108); pH, Arterial 7.54 (7.35-7.45)
[2024-06-19 04:36] LABS: Allen Test Performed/OK; Puncture Site Right Radial
[2024-06-19] MEDS: HEPARIN SOD INJ 5000 UNIT/ML VIAL SC (05:23)
[2024-06-19 05:41] LABS: Basophils % (Auto) 0 % (0-2.5); Eosinophils % (Auto) 0 % (0-10); Hematocrit 29.9 % (36.0-46.0); Hemoglobin 9.8 g/dL (12.0-16.0); Immature Granulocytes % (Auto) 2 % (0-0); Immature Granulocytes Auto 0.18 Thou/mm3 (0.00-0.00); Lymphocytes # (Auto) 0.7 Thou/mm3 (1.0-4.8); Lymphocytes % (Auto) 6 % (10-50); Mean Corpuscular HGB Conc 32.8 g/dl (31.0-37.0); Mean Corpuscular Hemoglobin 34.5 pg (25.0-35.0); Mean Corpuscular Volume 105 fL (80-100); Monocytes # (Auto) 0.4 Thou/mm3 (0.0-0.8); Monocytes % (Auto) 4 % (0-12); Neutrophils # (Auto) 10.3 Thou/mm3 (1.8-7.7); Neutrophils % (Auto) 88 % (37-80); Nucleated Red Blood Cell # 0.22 Thou/mm3 (0.00-0.00); Nucleated Red Blood Cell % 2 /100 WBC (0); Platelet Count 155 Thou/mm3 (140-440); RDW Standard Deviation 60.4 fL (36.4-46.3); Red Blood Count 2.84 Miln/mm3 (4.00-5.20); White Blood Count 11.7 Thou/mm3 (3.6-11.0)
[2024-06-19 06:34] LABS: Alanine Aminotransferase 59 U/L (10-49); Albumin, Serum 3.6 gm/dL (3.5-5.0); Alkaline Phosphatase 139 U/L (46-116); Anion Gap 10 (7-16); Aspartate Amino Transferase 39 U/L (0-34); BUN/Creatinine Ratio 38 Ratio (12-20); Bilirubin,Total 0.4 mg/dL (0.3-1.2); Blood Urea Nitrogen 45 mg/dL (9-23); Calcium 9.2 mg/dL (8.3-10.6); Calcium (Corrected) 9.5 mg/dL (8.5-10.1); Carbon Dioxide > 40.0 mMol/L (20.0-31.0); Chloride 107 mMol/L (98-107); Creatinine (Component) 1.2 mg/dL (0.6-1.3); Estimated Creatinine Clearance 18.4 mL/min (>60); Globulin 3.5 gm/dL (2.3-3.5); Glucose 225 mg/dL (74-106); Magnesium 2.2 mg/dL (1.6-2.6); Osmolality,Calculated 329 (275-295); Phosphorous 2.7 mg/dL (2.4-5.1); Sodium 157 mMol/L (136-145); Total Protein 7.1 gm/dL (5.7-8.2); eGFR 54 See Note
[2024-06-19 06:55] LABS: Potassium 2.7 mMol/L (3.4-5.1)
[2024-06-19] MEDS: POTASSIUM CHLORIDE 10% 20 MEQ/15 ML UDC 40 MEQ GT (07:12)
[2024-06-19] MEDS: POTASSIUM CHL 10 mEq IVPB 10 MEQ/100 ML BAG 100 MEQ IV ×6 (07:17→12:34)
[2024-06-19] MEDS: ACETAMINOPHEN SOL 325 MG/10 ML UDC 650 MG NG (07:43)
[2024-06-19] MEDS: POTASSIUM CHLORIDE 10% 20 MEQ/15 ML UDC GT (08:08)
[2024-06-19] MEDS: PANTOPRAZOLE INJ 40 MG VIAL IVP (08:08)
[2024-06-19] MEDS: AMPICILLIN/SULBAC INJ 1.5 GM in SODIUM CHLORIDE 0.9% (P) 50 ML IV ×2 (08:09→20:28)
--- NOTE | 2024-06-19 09:00 | XR_ITS ---
Examination: AP chest single view Technique one AP portable semiupright chest single view Exam date and time: June 19, 2024 0521 hrs. Comparison June 18, 2024 Indications: Hypoxic respiratory failure this week, with extensive pneumonia on chest imaging, postintubation Findings: Significant hyperexpansion Bilateral pneumonia remains mild improvement in the left lung compared with June 13, 2024 Tracheal tube tip 18 mm above tiki Normal heart size The orogastric tube is in the stomach satisfactory position Right internal jugular central line tip SVC no pneumothorax Impression: COPD Extensive bilateral pneumonia remains
[2024-06-19] MEDS: Norepinephrine/D5W 8mg/250ml 8 MG/250 ML BAG 16.116 MG IV (11:04)
[2024-06-19] MEDS: VANCOMYCIN/NS 500 MG IVPB 100 ML 120 MG IV (12:50)
[2024-06-19] MEDS: fentaNYL CIT INJ 50 mCg/ML AMP 2ML 25 MCG IVP (14:36)
--- NOTE | 2024-06-19 15:39 | ESOP_ITS ---
<Statement entered by Prateek Topete MD - 06/20/24 13:45> I was present for the critical and chahal portions of the procedure and was immediately available to provide assistance. Procedures Procedure Date / Time 06/19/24 1320 Procedural Time Out Time out performed: Yes Arterial Line Indication(s): other (Verify accurate blood pressure) Informed consent obtained: obtained from surrogate decision maker Time out done, and the following verified: correct patient, side and site, procedure, patient position and implants and/or equipment Size (Gauge): 20 Technique used: guide wire technique Post-Procedure: line sutured into place Patient tolerated procedure: other (Hematoma, bleeding) EBL(ml): 50 Complications: excessive bleeding and other (Hematoma) Site: left, right and femoral Procedure comment: In order to obtain accurate blood pressure readings on the setting of high presser requirements, plan was made to place arterial line. Due to patient frailty and small radial vessels, decision was made to perform femoral arterial line placement. Right arterial line placement was attempted. Procedure was complicated by a hematoma. After multiple attempts, arterial line was unable to be placed and procedure was aborted. Pressure was applied until hemastasis was achieved, and hematoma was verified to not be expanding. Decision was made to attempt placing left arterial line. New sterile field was prepared with new equipment. Left arterial line placement was complicated by hematoma after first stick. Another attempt was made, in which the arterial line was successfully placed. This was complicated by excessive bleeding around line placement. Pressure was applied to minimize bleeding while a read was taken from arterial line and compared to cuff read. The MAP of the arterial line and the cuff was only different by 1 mmHg after cuff was recycled. Arterial line was removed, and pressure was applied until hemastasis was achieved. Hematoma verified to not be expanding. Pressure dressing was applied to areas where arterial line was attempted, and hematomas were demarcated to measure changes. Procedure performed by attending Dr. Topete with assistance from Dr. Cerrato. Live Cerrato MD PGY-1
--- NOTE | 2024-06-19 15:55 | PC.SS ---
Update: Patient remains intubated. Off sedation. Feedings via OG tube. Patient is receiving pressor support.
--- NOTE | 2024-06-19 16:46 | ESPR_ITS ---
<Statement entered by Prateek Topete MD - 06/20/24 13:46> TOTAL CC TIME: 45 MIN I saw and evaluated the patient. I reviewed the resident?s note and agree with findings and plan as documented in the resident?s note. Upon my evaluation, this patient had a high probability of imminent or life- threatening deterioration due to distributive shock which required my direct attention, intervention, and personal management. This time is exclusive of time spent on procedures, which are documented separately if performed. Patient's blood pressure and heart rate drastically improved when she is more arousable. This is despite not being on sedation. Pneumonia is clearly improving and she is on pressure support tolerating it well. Hopeful to extubate soon if pressor requirements are able to be weaned further. Documentation for date of: 06/19/24 Subjective Subjective Interval history: 54 Y/O F with PMHx significant for Downs Syndrome, Schizophrenia,blindness, IBS, presents with chief complaint of AMS, last known normal 9 pm last night. Patient in unable to provide history, history taken from caregiver at bedside. Patient has had cough for about five days, noted sore throat. Patient has had diarrhea for 3 days, which is not uncommon for patient due to IBS. Patient was last seen at 9 pm last night. This morning patient was found unresponsive in her bed by caregiver. Patient is brought to ED, patient found to have low GCS, hypoxia with O2 sat 60% on nonrebreather, blood pressure 84 over palp. Patient was started on pressors, intubated. Patient had CODE BLUE, with 1 dose of epi before ROSC. Patient ventilated, started on sedation with propofol. Patient given 7 to 50 mL normal saline bolus and Rocephin in the ED. Blood urine and sputum cultures taken. Chest x-ray showed left-sided opacities. Head CT negative for hemorrhage, mass effect, midline shift. Labs significant for: WBC 13.4, hemoglobin 9.2 sodium 166, chloride 124, bicarb 31.8, BUN 62, creatinine 2.6, EGFR 22, troponin 0.236, albumin 3.2. Urinalysis indicates infection: Leukocyte esterase positive, 36 WBCs, rare bacteria. Initial ABG: pH 7.23, pCO2 69, pO2 153. Patient had low tidal volume/minute volume after intubation, vent settings changed for increased ventilation. Patient started on vancomycin and Zosyn. Patient had high Levophed requirements to maintain MAP, vasopressin added. Hydrocortisone initiated. Viral screen ordered. Patient given 1 L bolus lactated Ringer's. Patient remained unresponsive. ABG showed improvement after changing vent settings: pH 7.34, pCO2 57, pO2 65. 06/16/2024; Patient was seen and examined by bedside, Overnight patient had bradycardia episodes with heart rate dropping to low 30s for which dopamine drip was started, EKG this a.m. showed sinus bradycardia, patient's medications were reviewed for possible cause but none was found, patient has good urinary output overnight of around 500 cc, labs noted for correction of sodium from 166 to 157 with patient on D5W at 30 cc/hour, fluids were held by night team to avoid rapid correction, troponins trended down, Propofol stopped overnight, and fentanyl was discontinued around 2 PM, patient remains minimally responsive with sinus bradycardia. Continue patient on Zosyn, patient continues to be on Levophed and Vasopressin extravasation was noted around left forarm iv site after which pressors were discontinued and started at a different site, discussion with manager drilling, and family regarding need of central line placement for continuation of vasopressors for which consent was obtained and [facility] tri-lumen catheter was placed. Attempt to wean patient off dopamine was unsuccessful, patient continues to be on dopamine with heart rate around mid 40s. Bedside ultrasound showed engorgement of IVC indicating fluid overload will start patient on diuresis if if unable to wean vasopressors. 06/17/2024: Patient seen and examined at bedside. Patient remains minimally responsive despite being off sedatives. Patient remains bradycardic and hypotensive. On dopamine and levophed drips. Albumin and lasix drip initiated. Patient on D5W for hyponatremia, improving. Kidney function improving. Plan to initiate trickle feeds, will advance when off pressors. ABG pH 7.42, pCO2 54, pO2 77 with FiO2 60%. 06/18/2024: Patient seen and examined at bedside. Patient more responsive, withdraws from pain, does not open eyes. Patient remains bradycardic and hypotensive requiring dopamine and levophed. Patient had multiple large volume urine voiding overnight. Morning labs indicate a contraction alkalosis, lasix held for the day. Will have patient compensate with respirations, placed on spontaneous pressure support. Antibiotics narrowed from Zosyn to Unasyn. CXR showed improvement in consolidation, FiO2 titrated down to 40%. 06/29/2024: Patient seen and examined at bedside. Patient withdraws from pain, does not open eyes. Patient continues to have high levophed requirements to maintain MAP. Patient developed fever of 103.0 this morning. Emperic vancomycin was initiated, sputum culture and gram stain ordered. Patient remains on spontaneous pressure support, saturating well. In setting of high presser requirements, arterial line was ordered to verify accurate BP readings. Radial arteries were too small, so femoral arterial line was attempted. Right side arterial line attempt failed, with resulting hematoma covered with pressure dressing and demarcated after hemastasis was acheived. Left side attempt succeeded in placing line, but patient developed excessive bleeding around the catheter and a hematoma. After arterial line MAP read was verified to be 1 mmHg different than recycled cuff MAP, arterial line was removed. Pressure dressing applied and hematoma demarcated after hemastasis was achieved. Free water flushes initiated for hypernatremia. Exam Vital Signs Temp Pulse Resp BP Pulse Ox O2 Del Method FiO2 98.8 F 51 L 14 84/55 L 94 L Mechanical Ventilation 35 06/19/24 11:45 06/19/24 15:45 06/19/24 14:30 06/19/24 15:45 06/19/24 15:45 06/19/24 14:30 06/19/24 14:30 Narrative Exam PE: Gen: Extremely cachexic. Intubated and sedated. HEENT: Dry mucous membranes. Left eye heavily scarred, right eye glassy. Scarring around nares. CVS: normal S1 and S2. RRR. No M/R/G. Resp: No rhonchi, rales, crackles or wheezing. Coarse lung sounds. Abd: soft, non-tender, non-distended. MSK: No edema. Multiple old scars/wounds on all extremities, patient has history of self-inflicted injuries, picking at skin. Hematoma at left/right inguinal folds, not expanding. Neuro: GCS 6T, withdraws from pain. Objective Labs 06/19/24 05:09 06/19/24 05:09 Labs: Laboratory Results - last 24 hr 06/18/24 06/18/24 06/19/24 17:56 21:02 04:12 WBC RBC Hgb Hct MCV MCH MCHC RDW Std Deviation Plt Count Neut % (Auto) Lymph % (Auto) [place] % (Auto) Eos % (Auto) Baso % (Auto) Neut # (Auto) Lymph # (Auto) [place] # (Auto) Eos # (Auto) Baso # (Auto) Immature Gran # (Auto) Absolute Nucleated RBC Immature Gran % Nucleated RBC % Puncture Site Right Radial ABG pH 7.54 H ABG pCO2 50 H ABG pO2 61 L ABG HCO3 42 H ABG O2 Saturation 93 ABG Base Excess 18 H FiO2 21 Sodium 154 H 156 H Potassium Chloride Carbon Dioxide Anion Gap BUN Creatinine Estim Creat Clear Calc eGFR BUN/Creatinine Ratio Glucose Calculated Osmolality Calcium Corrected Calcium Phosphorus Magnesium Total Bilirubin AST ALT Alkaline Phosphatase Total Protein Albumin Globulin Albumin/Globulin Ratio 06/19/24 05:09 WBC 11.7 H RBC 2.84 L Hgb 9.8 L Hct 29.9 L MCV 105 H MCH 34.5 MCHC 32.8 RDW Std Deviation 60.4 H Plt Count 155 Neut % (Auto) 88 H Lymph % (Auto) 6 L [place] % (Auto) 4 Eos % (Auto) 0 Baso % (Auto) 0 Neut # (Auto) 10.3 H Lymph # (Auto) 0.7 L [place] # (Auto) 0.4 Eos # (Auto) 0.0 Baso # (Auto) 0.0 Immature Gran # (Auto) 0.18 H Absolute Nucleated RBC 0.22 H Immature Gran % 2 H Nucleated RBC % 2 H Puncture Site ABG pH ABG pCO2 ABG pO2 ABG HCO3 ABG O2 Saturation ABG Base Excess FiO2 Sodium 157 H Potassium 2.7 L* D Chloride 107 Carbon Dioxide > 40.0 H Anion Gap 10 BUN 45 H Creatinine 1.2 Estim Creat Clear Calc 18.4 L eGFR 54 L BUN/Creatinine Ratio 38 H Glucose 225 H Calculated Osmolality 329 H Calcium 9.2 Corrected Calcium 9.5 Phosphorus 2.7 Magnesium 2.2 Total Bilirubin 0.4 AST 39 H ALT 59 H Alkaline Phosphatase 139 H D Total Protein 7.1 Albumin 3.6 D Globulin 3.5 Albumin/Globulin Ratio 1.0 L ABG Interpretation ABG results: 06/15/24 06/15/24 06/15/24 11:06 14:05 17:00 ABG pH 7.23 L 7.33 L D 7.34 L ABG pCO2 69 H 56 H D 57 H ABG pO2 153 H 67 L D 65 L ABG HCO3 29 H 29 H 30 H ABG O2 Saturation 99 H 92 91 ABG Base Excess 0 3 4 H 06/16/24 06/17/24 06/18/24 04:04 04:36 04:04 ABG pH 7.35 7.42 7.53 H D ABG pCO2 57 H 54 H 57 H ABG pO2 58 L* 77 L 73 L ABG HCO3 31 H 35 H 47 H ABG O2 Saturation 88 L 96 96 ABG Base Excess 5 H 9 H 22 H 06/19/24 04:12 ABG pH 7.54 H ABG pCO2 50 H ABG pO2 61 L ABG HCO3 42 H ABG O2 Saturation 93 ABG Base Excess 18 H Quality Measures Quality Measures VTE prophylaxis Assessment & Plan Assessment Current Active Medications: Generic Name Dose Route Start Last Admin Trade Name Freq PRN Reason Stop Dose Admin Acetaminophen 650 mg 06/15/24 13:50 Acetaminophen Supp 650 Mg Supp GA 07/15/24 13:49 Q4HR PRN PAIN SCALE 1-3 (mild Acetaminophen 650 mg 06/19/24 07:27 06/19/24 07:43 Acetaminophen Noreen 325 Mg/10 Ml Udc NG 07/19/24 07:26 650 mg Q4HR PRN Administration Pain Or Fever > 100.4 Protocol Al Hydrox/Mg Hydrox/Simethicone 30 ml 06/15/24 13:50 Mg Hyd/Al Hyd/[place] (Maalox Reg) Susp 30 Ml Udc NG 07/15/24 13:49 Q4HR PRN Heartburn or Upset Stomach Heparin Sodium (Porcine) 5,000 unit 06/15/24 14:00 06/19/24 14:14 Heparin Sod Inj 5000 Unit/Ml Vial SC 06/29/24 13:59 Not Given Q8HR LIZ Hydrocortisone Sodium Succinate 50 mg 06/15/24 18:00 06/19/24 11:29 Hydrocortisone Sod Succ Inj 100 Mg Vial IV 07/15/24 17:59 50 mg Q6HR LIZ Administration Vasopressin/Sodium Chloride 20 unit in 100 mls @ 9 mls/hr 06/15/24 13:48 06/16/24 22:29 Vasostrict/Ns Ivpb IV 07/15/24 13:47 0 unit/min .Q11H7M PRN 0 mls/hr PER PROTOCOL Titration Protocol 0.03 UNIT/MIN Norepinephrine/Dextrose 8 mg in 250 mls @ 1.791 mls/hr 06/15/24 22:04 06/19/24 16:15 Levophed In D5w 8mg/250ml IV 07/15/24 22:03 0.45 mcg/kg/min .Q24H PRN 16.116 mls/hr PER PROTOCOL Titration Protocol 0.05 MCG/KG/MIN Dopamine HCl/Dextrose 400 mg in 250 mls @ 3.581 mls/hr 06/16/24 03:35 06/19/24 16:00 Intropin In D5w Ivpb IV 07/16/24 03:34 5 mcg/kg/min .Q24H LIZ 3.581 mls/hr Titration Protocol 5 MCG/KG/MIN Furosemide 200 mg/ Sodium 100 mls @ 5 mls/hr 06/17/24 10:56 06/18/24 07:15 Chloride IV 07/17/24 10:55 0 mls/hr .Q20H LIZ Infusion Ampicillin Sodium/Sulbactam 50 mls @ 100 mls/hr 06/18/24 10:15 06/19/24 08:39 Sodium 1.5 gm/ Sodium Chloride IV 06/25/24 10:14 Infused Q12HR LIZ Infusion Influenza Virus Vaccine Quadrival 0.5 ml 06/20/24 09:00 Influenza Virus Quadrivalent 0.5 Ml Syringe IMi 06/20/24 09:01 .ONCE ONE Magnesium Hydroxide 30 ml 06/15/24 13:50 Milk Of Magnesia Susp 30 Ml Udc NG 07/15/24 13:49 QDAY PRN CONSTIPATION Multivitamins/Minerals 15 ml 06/19/24 15:15 Multivitamin 15 Ml Udc NG 07/19/24 15:14 QDAY LIZ Nitroglycerin 0.4 mg 06/15/24 13:50 Nitroglycerin 0.4 Mg Subl Btl #25 SL Q5MIN PRN CHEST PAIN Pantoprazole Sodium 40 mg 06/16/24 09:00 06/19/24 08:08 Pantoprazole Inj 40 Mg Vial IVP 07/16/24 08:59 40 mg QDAY LIZ Administration Pharmacy Consult 1 each 06/15/24 18:27 Pharmacy To Consult Pneumovacc XX 07/15/24 18:26 PRN PRN CONSULT Pharmacy Consult 1 each 06/19/24 10:15 Vancomycin Pharmacy To Dose 1 Each Each IV 07/19/24 10:14 QDAY PRN CONSULT Pneumococcal Polyvalent Vaccine 0.5 ml 06/20/24 09:00 Pneumoc 20-Karen Conj-Dip Crm/Pf 0.5 Ml Syringe IMi 06/20/24 09:01 .ONCE ONE Thiamine HCl 100 mg 06/19/24 15:15 Thiamine Inj 100 Mg/Ml Vial 2 Ml IV 07/19/24 15:14 QDAY LIZ Plan 54 Y/O F with PMHx significant for Downs Syndrome, Schizophrenia,blindness, IBS, presents with chief complaint of AMS, last known normal 9 pm last night, admitted to ICU for septic shock requiring pressors and acute hypoxic respiratory failure requiring intubation. Neuro: #Acute encephalopathy Multifactorial: Infection, metabolic abnormalities, hypoxia, shock Off sedation, withdraws to pain -Treat underlying conditions Cardio: #Shock DDx: Septic shock versus cardiogenic Patient blood pressure was initially 84 by palpation. Patient requires extensive pressors, vasopressin and Levophed and high doses. Bedside echo showed good left ventricular contractility, no signs of right ventricular overload. Patient is dehydrated, has had diarrhea for the past 3 days. IVC on bedside echo was variable. Patient received 750 mL normal saline bolus and 1 L of lactated Ringer's bolus. Bedside echo showed IVC congestion, patient continues to require pressors. Patient recieved Albumin with Lasix drip. -Titrate pressors as tolerated -Hydrocortisone 50 mg every 6 hours -Treat underlying conditions #Sinus bradycardia Patient developed sinus bradycardia, dropping to low 30's. EKG only showed sinus bradycardia. Patient started on dopamine drip, unable to be titrated off. Heart rate stable in high 40's. -Maintain dopamine drip, titrate as needed -telemonitoring Pulm: #AHRF, resolving DDx: Community acquired pneumonia versus aspiration Patient presented saturation 60% on nonrebreather mask. Patient was intubated and ventilated. Initial ABG pH 7.23, pCO2 69, pO2 153. Patient had poor minutes in tidal ventilation, vent settings adjusted. Follow-up ABG improved: pH 7.34, pCO2 57, pO2 65. Chest x-ray showed left-sided consolidation. Patient has history of Down syndrome, risk for aspiration pneumonia. Bacterial and viral pneumonia both possible. Influenza panel negative. MRSA screen negative. Patient maintaining saturations on sspntaneous pressure support with 35% FiO2. Patient developed new fever of 103.0. Repeat sputum culture ordered. -Follow-up sputum culture -Zosyn (06/16-06/18) changed to Unasyn (06/18-06/22) -Vancomycin pharmacy dosing (started 06/19) -Pressure support to allow respiratory compensation GI: #Severe protein malnutrition Patient BMI 14.9. Patient unable to provide history, per caregiver patient has good oral intake most times, has been malnourished for years due to chronic diarrhea, has not had significant weight loss recently. Patient has very little muscle mass, temporal wasting, sunken eyes. -Dietary consult, appreciate recommendations -Tube feeds, will advance -daily labs #IBS Patient history of IBS. Patient had diarrhea for 3 days prior to admission, not unusual for patient. -Monitor bowel movements -Treat metabolic abnormalities as needed #Tube feeds Trickle feeds initiated, advance 10 ml every 12 hrs to goal rate of 35 ml/hr x 24 hrs. Renal: #ОЛЬГА DDx: Prerenal due to dehydration versus ischemic ATN Patient presented with BUN 62, creatinine 2.6, eGFR 22. No previous labs to compare to. Patient has adequate urine output. Patient appears severely dehydrated exam, has received multiple boluses of fluid, on IVF. Patient was also severely hypotensive, requiring significant pressor support. Patient recieved albumin and lasix drip, lasix held next day -Holding Lasix due to contraction alkalosis -Monitor daily labs -Avoid nephrotoxins -Monitor urine output #Hypernatremia Likely due to severe dehydration. Sodium admission is 166. Patient received 150 mL bolus normal saline in the ED. Patient was then given 1 L bolus lactated Ringer's. Improving with D5W IVF. Down to 157. Down to 154, fluids held. Gentle diuresis. -250cc free water flushes q6hr Endo: #No active issues Heme: #Hematomas Hematomas in bilateral inguinal folds as complications of attempted femoral arterial line placement. -pressure dressings -demarcations to monitor for expansion -hold DVT prophylaxis #Macrocytic anemia Patient hemoglobin 9.2, MCV 114. No previous labs to compare to. No obvious signs of acute bleeding. Folate and B12 not depleted. -Monitor #Leukocytosis Likely due to underlying infection. Possibility of increase due to steroids. Trending down. -Monitor ID: #New fever Patient developed a fever of 103.0 the morning of hospital day 4. CXR showed improvement of consolidations. New sputum culture ordered. Patient did not have further fevers. -Follow up sputum culture -empiric Vancomycin for new fever (started 06/19) #UTI Patient urinalysis indicated UTI: Positive leukocyte esterase, rare bacteria, 36 WBCs. Cultures grew mckeon-sensitive E. Coli. -On Unasyn #Pneumonia Patient in acute hypoxic respiratory failure, chest x-ray with left-sided consolidations. -On Unasyn (started 06/16) Skin/MSK: #No active issues Lines: RIJ/PIV DVT prophylaxis: Held due to hematomas G.I prophylaxis: Pantoprazole Code: Full code Patient's plan of care discussed with attending Dr. Topete. Live Cerrato MD PGY-1
[2024-06-19] MEDS: MULTIVITAMIN 15 ML UDC NG (16:57)
[2024-06-19] MEDS: THIAMINE INJ 100 MG/ML VIAL 2 ML IV (16:57)
--- NOTE | 2024-06-19 18:53 | PC.NURSE ---
at 1825, pt HR at 39, Dr. Pete made aware, order received to titrate Dopamine per protocol to heart rate greater than 50
[2024-06-20] VITALS (101 sets, daily range): BP systolic 69–159; BP diastolic 49–86; PULSE 41–151; RESP 9–39; TEMP 36.9–37.8; O2SAT 82–100
[2024-06-20] MEDS: HYDROCORTISONE SOD SUCC INJ 100 MG VIAL 50 MG IV ×3 (01:00→21:27)
[2024-06-20] MEDS: Norepinephrine/D5W 8mg/250ml 8 MG/250 ML BAG 11.818 MG IV (03:17)
[2024-06-20] MEDS: DOPamine/D5w 400 MG IVPB 400 MG/250 ML BAG 10.744 MG IV (03:17)
[2024-06-20 05:57] LABS: Basophils % (Auto) 0 % (0-2.5); Eosinophils % (Auto) 0 % (0-10); Hematocrit 25.5 % (36.0-46.0); Immature Granulocytes % (Auto) 1 % (0-0); Immature Granulocytes Auto 0.19 Thou/mm3 (0.00-0.00); Lymphocytes # (Auto) 0.6 Thou/mm3 (1.0-4.8); Lymphocytes % (Auto) 4 % (10-50); Mean Corpuscular HGB Conc 32.9 g/dl (31.0-37.0); Mean Corpuscular Hemoglobin 34.9 pg (25.0-35.0); Mean Corpuscular Volume 106 fL (80-100); Monocytes # (Auto) 0.7 Thou/mm3 (0.0-0.8); Monocytes % (Auto) 5 % (0-12); Neutrophils # (Auto) 12.2 Thou/mm3 (1.8-7.7); Neutrophils % (Auto) 89 % (37-80); Nucleated Red Blood Cell # 0.09 Thou/mm3 (0.00-0.00); Nucleated Red Blood Cell % 1 /100 WBC (0); Platelet Count 141 Thou/mm3 (140-440); RDW Standard Deviation 57.6 fL (36.4-46.3); Red Blood Count 2.41 Miln/mm3 (4.00-5.20); White Blood Count 13.7 Thou/mm3 (3.6-11.0)
[2024-06-20 05:58] LABS: Hemoglobin 8.4 g/dL (12.0-16.0)
[2024-06-20 06:25] LABS: Alanine Aminotransferase 74 U/L (10-49); Albumin, Serum 3.2 gm/dL (3.5-5.0); Albumin/Globulin Ratio 1.1 (1.2-2.2); Alkaline Phosphatase 129 U/L (46-116); Anion Gap 6 (7-16); Aspartate Amino Transferase 40 U/L (0-34); BUN/Creatinine Ratio 39 Ratio (12-20); Bilirubin,Total 0.3 mg/dL (0.3-1.2); Blood Urea Nitrogen 31 mg/dL (9-23); Calcium 8.2 mg/dL (8.3-10.6); Calcium (Corrected) 8.8 mg/dL (8.5-10.1); Carbon Dioxide 33.4 mMol/L (20.0-31.0); Chloride 107 mMol/L (98-107); Creatinine (Component) 0.8 mg/dL (0.6-1.3); Estimated Creatinine Clearance 27.7 mL/min (>60); Glucose 394 mg/dL (74-106); Magnesium 1.9 mg/dL (1.6-2.6); Osmolality,Calculated 313 (275-295); Phosphorous 2.4 mg/dL (2.4-5.1); Potassium 3.5 mMol/L (3.4-5.1); Sodium 146 mMol/L (136-145); Total Protein 6.2 gm/dL (5.7-8.2); Vancomycin,Random 6.1 mcg/mL; eGFR > 60 See Note
[2024-06-20] MEDS: AMPICILLIN/SULBAC INJ 1.5 GM in SODIUM CHLORIDE 0.9% (P) 50 ML IV ×2 (08:38→21:26)
[2024-06-20] MEDS: PANTOPRAZOLE INJ 40 MG VIAL IVP (08:39)
[2024-06-20] MEDS: MULTIVITAMIN 15 ML UDC NG (08:39)
[2024-06-20] MEDS: THIAMINE INJ 100 MG/ML VIAL 2 ML IV (08:39)
--- NOTE | 2024-06-20 09:00 | XR_ITS ---
Examination: AP chest single view Technique one AP portable supine chest single view Exam date and time: June 20, 2024 0826 hours Comparison 01/17/2024 INDICATIONS: History COPD, hypoxic respiratory failure, pneumonia on earlier chest imaging this week. FINDINGS: Significant hyperexpansion Bilateral pneumonia remains Normal heart size Endotracheal tube tip 3.9 cm above tiki Right central line tip SVC No pneumothorax Skinfold over the right hemithorax Orogastric tube in the stomach IMPRESSION: COPD Significant bilateral pneumonia remains
--- NOTE | 2024-06-20 10:11 | ESPR_ITS ---
<Statement entered by Prateek Topete MD - 06/21/24 20:36> TOTAL CC TIME: 45 MIN I saw and evaluated the patient. I reviewed the resident?s note and agree with findings and plan as documented in the resident?s note. Upon my evaluation, this patient had a high probability of imminent or life- threatening deterioration due to septic shock which required my direct attention, intervention, and personal management. This time is exclusive of time spent on procedures, which are documented separately if performed. hr and bp improving as pt is more awake no recurring fevers weaning pressors monitor GFR extubate hopefully tomorrow as pt level of wakefulness is improving Documentation for date of: 06/20/24 Subjective Subjective Interval history: 54 Y/O F with PMHx significant for Downs Syndrome, Schizophrenia,blindness, IBS, presents with chief complaint of AMS, last known normal 9 pm last night. Patient in unable to provide history, history taken from caregiver at bedside. Patient has had cough for about five days, noted sore throat. Patient has had diarrhea for 3 days, which is not uncommon for patient due to IBS. Patient was last seen at 9 pm last night. This morning patient was found unresponsive in her bed by caregiver. Patient is brought to ED, patient found to have low GCS, hypoxia with O2 sat 60% on nonrebreather, blood pressure 84 over palp. Patient was started on pressors, intubated. Patient had CODE BLUE, with 1 dose of epi before ROSC. Patient ventilated, started on sedation with propofol. Patient given 7 to 50 mL normal saline bolus and Rocephin in the ED. Blood urine and sputum cultures taken. Chest x-ray showed left-sided opacities. Head CT negative for hemorrhage, mass effect, midline shift. Labs significant for: WBC 13.4, hemoglobin 9.2 sodium 166, chloride 124, bicarb 31.8, BUN 62, creatinine 2.6, EGFR 22, troponin 0.236, albumin 3.2. Urinalysis indicates infection: Leukocyte esterase positive, 36 WBCs, rare bacteria. Initial ABG: pH 7.23, pCO2 69, pO2 153. Patient had low tidal volume/minute volume after intubation, vent settings changed for increased ventilation. Patient started on vancomycin and Zosyn. Patient had high Levophed requirements to maintain MAP, vasopressin added. Hydrocortisone initiated. Viral screen ordered. Patient given 1 L bolus lactated Ringer's. Patient remained unresponsive. ABG showed improvement after changing vent settings: pH 7.34, pCO2 57, pO2 65. 06/16/2024; Patient was seen and examined by bedside, Overnight patient had bradycardia episodes with heart rate dropping to low 30s for which dopamine drip was started, EKG this a.m. showed sinus bradycardia, patient's medications were reviewed for possible cause but none was found, patient has good urinary output overnight of around 500 cc, labs noted for correction of sodium from 166 to 157 with patient on D5W at 30 cc/hour, fluids were held by night team to avoid rapid correction, troponins trended down, Propofol stopped overnight, and fentanyl was discontinued around 2 PM, patient remains minimally responsive with sinus bradycardia. Continue patient on Zosyn, patient continues to be on Levophed and Vasopressin extravasation was noted around left forarm iv site after which pressors were discontinued and started at a different site, discussion with cafeteria food server, and family regarding need of central line placement for continuation of vasopressors for which consent was obtained and RIJ tri-lumen catheter was placed. Attempt to wean patient off dopamine was unsuccessful, patient continues to be on dopamine with heart rate around mid 40s. Bedside ultrasound showed engorgement of IVC indicating fluid overload will start patient on diuresis if if unable to wean vasopressors. 06/17/2024: Patient seen and examined at bedside. Patient remains minimally responsive despite being off sedatives. Patient remains bradycardic and hypotensive. On dopamine and levophed drips. Albumin and lasix drip initiated. Patient on D5W for hyponatremia, improving. Kidney function improving. Plan to initiate trickle feeds, will advance when off pressors. ABG pH 7.42, pCO2 54, pO2 77 with FiO2 60%. 06/18/2024: Patient seen and examined at bedside. Patient more responsive, withdraws from pain, does not open eyes. Patient remains bradycardic and hypotensive requiring dopamine and levophed. Patient had multiple large volume urine voiding overnight. Morning labs indicate a contraction alkalosis, lasix held for the day. Will have patient compensate with respirations, placed on spontaneous pressure support. Antibiotics narrowed from Zosyn to Unasyn. CXR showed improvement in consolidation, FiO2 titrated down to 40%. 06/19/2024: Patient seen and examined at bedside. Patient withdraws from pain, does not open eyes. Patient continues to have high levophed requirements to maintain MAP. Patient developed fever of 103.0 this morning. Emperic vancomycin was initiated, sputum culture and gram stain ordered. Patient remains on spontaneous pressure support, saturating well. In setting of high presser requirements, arterial line was ordered to verify accurate BP readings. Radial arteries were too small, so femoral arterial line was attempted. Right side arterial line attempt failed, with resulting hematoma covered with pressure dressing and demarcated after hemastasis was acheived. Left side attempt succeeded in placing line, but patient developed excessive bleeding around the catheter and a hematoma. After arterial line MAP read was verified to be 1 mmHg different than recycled cuff MAP, arterial line was removed. Pressure dressing applied and hematoma demarcated after hemastasis was achieved. Free water flushes initiated for hypernatremia. 06/20/2024: Patient seen and examined at bedside. Neuro status unchanged. Dopamine uptitrated to maintain heart rate, continues to require high levels of Levophed. Vasopressin added to maintain MAP. Patient heart rate and MAP improved with tactile stimulation. Patient continues to saturate well on pressure support with 40% FiO2. Hypernatremia resolved, decreasing free water flushes. Lasix held, ОЛЬГА resolving. Patient is increasing blood glucose, suspect secondary to steroids. Weaning down steroids. Hematomas is not expanding. Exam Vital Signs Temp Pulse Resp BP Pulse Ox O2 Del Method FiO2 99.0 F 53 L 14 84/57 L 95 Mechanical Ventilation 40 06/20/24 04:00 06/20/24 06:31 06/19/24 14:30 06/20/24 06:31 06/20/24 06:31 06/19/24 16:00 06/20/24 06:31 Narrative Exam PE: Gen: Extremely cachexic. Intubated. HEENT: Dry mucous membranes. Left eye heavily scarred, right eye glassy. Scarring around nares. CVS: normal S1 and S2. No M/R/G. Sinus bradycardia. Resp: No rhonchi, rales, crackles or wheezing. Coarse lung sounds. Abd: soft, non-tender, non-distended. MSK: No edema. Multiple old scars/wounds on all extremities, patient has history of self-inflicted injuries, picking at skin. Hematoma at left/right inguinal folds, not expanding. Neuro: GCS 6T, withdraws from pain. Objective Labs 06/20/24 05:05 06/20/24 05:05 Labs: Laboratory Results - last 24 hr 06/20/24 05:05 WBC 13.7 H RBC 2.41 L Hgb 8.4 L Hct 25.5 L MCV 106 H MCH 34.9 MCHC 32.9 RDW Std Deviation 57.6 H Plt Count 141 Neut % (Auto) 89 H Lymph % (Auto) 4 L Bennett % (Auto) 5 Eos % (Auto) 0 Baso % (Auto) 0 Neut # (Auto) 12.2 H Lymph # (Auto) 0.6 L Bennett # (Auto) 0.7 Eos # (Auto) 0.0 Baso # (Auto) 0.0 Immature Gran # (Auto) 0.19 H Absolute Nucleated RBC 0.09 H Immature Gran % 1 H Nucleated RBC % 1 H Sodium 146 H D Potassium 3.5 D Chloride 107 Carbon Dioxide 33.4 H Anion Gap 6 L BUN 31 H Creatinine 0.8 Estim Creat Clear Calc 27.7 L eGFR > 60 BUN/Creatinine Ratio 39 H Glucose 394 H D Calculated Osmolality 313 H Calcium 8.2 L Corrected Calcium 8.8 Phosphorus 2.4 Magnesium 1.9 Total Bilirubin 0.3 AST 40 H ALT 74 H Alkaline Phosphatase 129 H Total Protein 6.2 Albumin 3.2 L Globulin 3.0 Albumin/Globulin Ratio 1.1 L Random Vancomycin 6.1 ABG Interpretation ABG results: 06/15/24 06/15/24 06/15/24 11:06 14:05 17:00 ABG pH 7.23 L 7.33 L D 7.34 L ABG pCO2 69 H 56 H D 57 H ABG pO2 153 H 67 L D 65 L ABG HCO3 29 H 29 H 30 H ABG O2 Saturation 99 H 92 91 ABG Base Excess 0 3 4 H 06/16/24 06/17/24 06/18/24 04:04 04:36 04:04 ABG pH 7.35 7.42 7.53 H D ABG pCO2 57 H 54 H 57 H ABG pO2 58 L* 77 L 73 L ABG HCO3 31 H 35 H 47 H ABG O2 Saturation 88 L 96 96 ABG Base Excess 5 H 9 H 22 H 06/19/24 04:12 ABG pH 7.54 H ABG pCO2 50 H ABG pO2 61 L ABG HCO3 42 H ABG O2 Saturation 93 ABG Base Excess 18 H Quality Measures Quality Measures VTE prophylaxis Assessment & Plan Assessment Current Active Medications: Generic Name Dose Route Start Last Admin Trade Name Freq PRN Reason Stop Dose Admin Acetaminophen 650 mg 06/15/24 13:50 Acetaminophen Supp 650 Mg Supp PA 07/15/24 13:49 Q4HR PRN PAIN SCALE 1-3 (mild Acetaminophen 650 mg 06/19/24 07:27 06/19/24 07:43 Acetaminophen Noreen 325 Mg/10 Ml Udc NG 07/19/24 07:26 650 mg Q4HR PRN Administration Pain Or Fever > 100.4 Protocol Al Hydrox/Mg Hydrox/Simethicone 30 ml 06/15/24 13:50 Mg Hyd/Al Hyd/[place] (Maalox Reg) Susp 30 Ml Udc NG 07/15/24 13:49 Q4HR PRN Heartburn or Upset Stomach Heparin Sodium (Porcine) 5,000 unit 06/15/24 14:00 06/19/24 14:14 Heparin Sod Inj 5000 Unit/Ml Vial SC 06/29/24 13:59 Not Given Q8HR LIZ Hydrocortisone Sodium Succinate 50 mg 06/20/24 21:00 Hydrocortisone Sod Succ Inj 100 Mg Vial IV 07/20/24 20:59 Q12HR LIZ Norepinephrine/Dextrose 8 mg in 250 mls @ 1.791 mls/hr 06/15/24 22:04 06/20/24 08:00 Levophed In D5w 8mg/250ml IV 07/15/24 22:03 0.31 mcg/kg/min .Q24H PRN 11.102 mls/hr PER PROTOCOL Titration Protocol 0.05 MCG/KG/MIN Furosemide 200 mg/ Sodium 100 mls @ 5 mls/hr 06/17/24 10:56 06/18/24 07:15 Chloride IV 07/17/24 10:55 0 mls/hr .Q20H LIZ Infusion Ampicillin Sodium/Sulbactam 50 mls @ 100 mls/hr 06/18/24 10:15 06/20/24 08:38 Sodium 1.5 gm/ Sodium Chloride IV 06/22/24 10:14 100 mls/hr Q12HR LIZ Administration Dopamine HCl/Dextrose 400 mg in 250 mls @ 3.581 mls/hr 06/19/24 18:40 06/20/24 08:00 Intropin In D5w Ivpb IV 07/16/24 03:34 9 mcg/kg/min .Q24H LIZ 6.446 mls/hr Titration Protocol 5 MCG/KG/MIN Vancomycin/Sodium Chloride 100 mls @ 120 mls/hr 06/20/24 10:00 Vancomycin/Ns 500 Mg Ivpb IV 06/20/24 10:49 X1 ONE Vasopressin/Sodium Chloride 20 unit in 100 mls @ 9 mls/hr 06/20/24 09:54 Vasostrict/Ns Ivpb IV 07/20/24 09:53 .Q11H7M PRN PER PROTOCOL Protocol 0.03 UNIT/MIN Influenza Virus Vaccine Quadrival 0.5 ml 06/23/24 08:30 Influenza Virus Quadrivalent 0.5 Ml Syringe IMi 06/23/24 08:31 .ONCE ONE Magnesium Hydroxide 30 ml 06/15/24 13:50 Milk Of Magnesia Susp 30 Ml Udc NG 07/15/24 13:49 QDAY PRN CONSTIPATION Multivitamins/Minerals 15 ml 06/19/24 15:15 06/20/24 08:39 Multivitamin 15 Ml Udc NG 07/19/24 15:14 15 ml QDAY LIZ Administration Pantoprazole Sodium 40 mg 06/16/24 09:00 06/20/24 08:39 Pantoprazole Inj 40 Mg Vial IVP 07/16/24 08:59 40 mg QDAY LIZ Administration Pharmacy Consult 1 each 06/15/24 18:27 Pharmacy To Consult Pneumovacc XX 07/15/24 18:26 PRN PRN CONSULT Pharmacy Consult 1 each 06/19/24 10:15 Vancomycin Pharmacy To Dose 1 Each Each IV 07/19/24 10:14 QDAY PRN CONSULT Pneumococcal Polyvalent Vaccine 0.5 ml 06/23/24 09:00 Pneumoc 20-Karen Conj-Dip Crm/Pf 0.5 Ml Syringe IMi 06/23/24 09:01 .ONCE ONE Thiamine HCl 100 mg 06/19/24 15:15 06/20/24 08:39 Thiamine Inj 100 Mg/Ml Vial 2 Ml IV 07/19/24 15:14 100 mg QDAY LIZ Administration Plan 54 Y/O F with PMHx significant for Downs Syndrome, Schizophrenia,blindness, IBS, presents with chief complaint of AMS, last known normal 9 pm last night, admitted to ICU for septic shock requiring pressors and acute hypoxic respiratory failure requiring intubation. Neuro: #Acute encephalopathy Multifactorial: Infection, metabolic abnormalities, hypoxia, shock Off sedation, withdraws to pain -Treat underlying conditions -Will consider extubation tomorrow if patient remains clinically stable Cardio: #Shock DDx: Septic shock Patient blood pressure was initially 84 by palpation. Patient requires extensive pressors, vasopressin and Levophed and high doses. Bedside echo showed good left ventricular contractility, no signs of right ventricular overload. Patient is dehydrated, has had diarrhea for the past 3 days. IVC on bedside echo was variable. Patient received 750 mL normal saline bolus and 1 L of lactated Ringer's bolus. Bedside echo showed IVC congestion, patient continues to require pressors. Patient recieved Albumin with Lasix drip. -Titrate pressors as tolerated -Hydrocortisone 50 mg every 12 hours -Treat underlying conditions -Consider extubation tomorrow if patient remains clinically stable #Sinus bradycardia, resolving Patient developed sinus bradycardia, dropping to low 30's. EKG only showed sinus bradycardia. Patient started on dopamine drip, unable to be titrated off. Heart rate stable in high 40's. Patient maintaining heart rate around 50. Heart rate improves when patient receives tactile stimulation. -Maintain dopamine drip, titrate as needed -telemonitoring Pulm: #AHRF, resolving DDx: Community acquired pneumonia versus aspiration Patient presented saturation 60% on nonrebreather mask. Patient was intubated and ventilated. Initial ABG pH 7.23, pCO2 69, pO2 153. Patient had poor minutes in tidal ventilation, vent settings adjusted. Follow-up ABG improved: pH 7.34, pCO2 57, pO2 65. Chest x-ray showed left-sided consolidation. Patient has history of Down syndrome, risk for aspiration pneumonia. Bacterial and viral pneumonia both possible. Influenza panel negative. MRSA screen negative. Patient maintaining saturations on sspntaneous pressure support with 40% FiO2. Patient developed new fever of 103.0, resolved. Repeat sputum culture ordered. -Follow-up sputum culture -Zosyn (06/16-06/18) changed to Unasyn (06/18-06/22) -Vancomycin pharmacy dosing (started 06/19) -Pressure support to allow respiratory compensation GI: #Severe protein malnutrition Patient BMI 14.9. Patient unable to provide history, per caregiver patient has good oral intake most times, has been malnourished for years due to chronic diarrhea, has not had significant weight loss recently. Patient has very little muscle mass, temporal wasting, sunken eyes. -Dietary consult, appreciate recommendations -Thiamine and multivitamin supplements -Tube feeds, advanced -daily labs #IBS Patient history of IBS. Patient had diarrhea for 3 days prior to admission, not unusual for patient. Patient has been having regular bowel movements during hospital stay. -Monitor bowel movements -Treat metabolic abnormalities as needed #Tube feeds Trickle feeds initiated, advanced to goal rate of 35 ml/hr. Renal: #ОЛЬГА, resolved DDx: Prerenal due to dehydration versus ischemic ATN Patient presented with BUN 62, creatinine 2.6, eGFR 22. No previous labs to compare to. Patient has adequate urine output. Patient appears severely dehydrated exam, has received multiple boluses of fluid, on IVF. Patient was also severely hypotensive, requiring significant pressor support. Patient recieved albumin and lasix drip, lasix held next day Holding Lasix, renal function labs normalizing. Patient continues to have good urine output. -Holding Lasix due to contraction alkalosis -Monitor daily labs -Avoid nephrotoxins -Monitor urine output #Hypernatremia, resolved Likely due to severe dehydration. Sodium admission is 166. Patient received 150 mL bolus normal saline in the ED. Patient was then given 1 L bolus lactated Ringer's. Improving with D5W IVF. Down to 157. Down to 154, fluids held. Gentle diuresis. Resolved with free water flushes. -250cc free water flushes q8hr Endo: #Hyperglycemia Patient has mild hyperglycemia, trending up. No history of diabetes. Likely due to steroid treatment. -Reduced steroid treatment from hydrocortisone 50 mg every 6 hours to every 12 hours. -Monitor Heme: #Hematomas Hematomas in bilateral inguinal folds as complications of attempted femoral arterial line placement. -pressure dressings -demarcations to monitor for expansion -hold DVT prophylaxis #Macrocytic anemia Patient hemoglobin 9.2, MCV 114. No previous labs to compare to. No obvious signs of acute bleeding. Folate and B12 not depleted. -Monitor #Leukocytosis Likely due to underlying infection. Possibility of increase due to steroids. Trending down. -Monitor ID: #New fever Patient developed a fever of 103.0 the morning of hospital day 4. CXR showed improvement of consolidations. New sputum culture ordered. Patient did not have further fevers. -Follow up sputum culture -empiric Vancomycin for new fever (started 06/19) #UTI Patient urinalysis indicated UTI: Positive leukocyte esterase, rare bacteria, 36 WBCs. Cultures grew mckeon-sensitive E. Coli. -On Unasyn #Pneumonia Patient in acute hypoxic respiratory failure, chest x-ray with left-sided consolidations. -On Unasyn (started 06/16) Skin/MSK: #No active issues Lines: RIJ/PIV DVT prophylaxis: Held due to hematomas G.I prophylaxis: Pantoprazole Code: Full code Patient's plan of care discussed with attending Dr. Topete. Live Cerrato MD PGY-1
[2024-06-20] MEDS: VASOPRESSIN IN NS IVPB 20 UNIT/100 ML BAG 9 UNIT IV ×2 (10:28→21:10)
[2024-06-20] MEDS: VANCOMYCIN/NS 500 MG IVPB 100 ML 120 MG IV (11:04)
--- NOTE | 2024-06-20 15:10 | PC.SS ---
Update: Patient remains on mechanical ventilation and continuing to receive pressor support. ОЛЬГА is resolving.
[2024-06-21] VITALS (106 sets, daily range): BP systolic 68–121; BP diastolic 38–77; PULSE 47–101; RESP 0–41; TEMP 37.1–37.7; O2SAT 75–100
[2024-06-21] MEDS: DOPamine/D5w 400 MG IVPB 400 MG/250 ML BAG 10.744 MG IV (02:51)
--- NOTE | 2024-06-21 04:08 | XR_ITS ---
Examination: AP chest single view Technique one AP portable supine chest single view Exam date and time: June 21, 2024 0431 hrs. Comparison June 20, 2024 Indications: COPD, hypoxic respiratory failure, bilateral pneumonia on chest imaging this week. Findings: Significant hyperexpansion Bilateral pneumonia which shows slight improvement compared with June 16, 2024 Right internal jugular central line tip SVC satisfactory position, no pneumothorax Endotracheal tube tip 2.8 cm above tiki Orogastric tube is in the stomach however the stomach is moderately air distended Severe osteopenia Impression: COPD Bilateral pneumonia remains Orogastric tube is in the stomach, however the stomach is moderately air distended
[2024-06-21] MEDS: ETOMIDATE INJ 2 MG/ML VIAL 10 ML 10 MG IVP (04:13)
--- NOTE | 2024-06-21 04:18 | PD.EDADDENDU ---
Emergency Room Addendum Addendum Narrative: I was called to room 254 to re-intubate the patient due to the ET tube cuff being blown. Patient is developmentally delayed. 10mg of etomidate was given prior to re-intubating the patient. Post intubation, patient is saturating at 100% via mechanical ventilation. Procedure Note: Time out performed: No Laryngoscope: fiber optic video device Assist Device Used: fiber optic scope ET Tube Size: 5.5 ET Tube Uncuffed: No Tube Secured Depth (cm): 22 Tube Secured Location: teeth Tube Placement Confirmation: visualized tube passing through cords, equal breath sounds bilaterally, no breath sounds over epigastrium and confirmation by capnometry Intubation Complications: none Additional Comments: Post intubation CXR shows cardiomegaly, no pneumothorax, no pneumonia, according to my interpretation. ET tube was repositioned, and is now 20 cm @ teeth. It was repositioned once more, and is now 18 cm @ teeth and 2 cm above the tiki.
--- NOTE | 2024-06-21 04:42 | PC.RT ---
ETT with compromised agricultural pilot balloon removed and new intact ETT placed by Dr. Tyson without complication.
--- NOTE | 2024-06-21 05:09 | PD.RESEVENT ---
Documentation for date of: 06/21/24 Event Note Event Note: Around 3:00 a.m. I was called by respiratory therapist of the ET cuffed been blown off patient was saturating 99% on FiO2 40%, I contacted ED physician for the patient to be reintubated, and patient was reintubated at 4:20 am. Patient discussed with my attending Dr Bib Sanchez MD PGY-3 Disclaimer: Despite multiple revisions, due to the dictation software being used, the document bellow may not be free of grammatical errors including phonetic/typographic errors. However, this does not deter from our commitment to providing health care in the patient's best interest in mind.
[2024-06-21] MEDS: VASOPRESSIN IN NS IVPB 20 UNIT/100 ML BAG 9 UNIT IV ×2 (05:30→18:11)
[2024-06-21] MEDS: Norepinephrine/D5W 8mg/250ml 8 MG/250 ML BAG 8.237 MG IV (05:33)
[2024-06-21 05:45] LABS: Basophils % (Auto) 0 % (0-2.5); Eosinophils % (Auto) 0 % (0-10); Hematocrit 23.2 % (36.0-46.0); Immature Granulocytes % (Auto) 3 % (0-0); Immature Granulocytes Auto 0.34 Thou/mm3 (0.00-0.00); Lymphocytes % (Auto) 7 % (10-50); Mean Corpuscular HGB Conc 32.8 g/dl (31.0-37.0); Mean Corpuscular Hemoglobin 33.8 pg (25.0-35.0); Mean Corpuscular Volume 103 fL (80-100); Monocytes # (Auto) 0.4 Thou/mm3 (0.0-0.8); Monocytes % (Auto) 3 % (0-12); Neutrophils # (Auto) 11.8 Thou/mm3 (1.8-7.7); Neutrophils % (Auto) 87 % (37-80); Nucleated Red Blood Cell # 0.14 Thou/mm3 (0.00-0.00); Nucleated Red Blood Cell % 1 /100 WBC (0); Platelet Count 162 Thou/mm3 (140-440); RDW Standard Deviation 55.1 fL (36.4-46.3); Red Blood Count 2.25 Miln/mm3 (4.00-5.20); White Blood Count 13.6 Thou/mm3 (3.6-11.0)
[2024-06-21 05:49] LABS: Hemoglobin 7.6 g/dL (12.0-16.0)
[2024-06-21 06:26] LABS: Alanine Aminotransferase 79 U/L (10-49); Albumin, Serum 3.4 gm/dL (3.5-5.0); Albumin/Globulin Ratio 1.2 (1.2-2.2); Alkaline Phosphatase 129 U/L (46-116); Anion Gap 7 (7-16); Aspartate Amino Transferase 45 U/L (0-34); BUN/Creatinine Ratio 35 Ratio (12-20); Bilirubin,Total 0.3 mg/dL (0.3-1.2); Blood Urea Nitrogen 21 mg/dL (9-23); Calcium 7.9 mg/dL (8.3-10.6); Calcium (Corrected) 8.4 mg/dL (8.5-10.1); Carbon Dioxide 31.8 mMol/L (20.0-31.0); Chloride 102 mMol/L (98-107); Creatinine (Component) 0.6 mg/dL (0.6-1.3); Estimated Creatinine Clearance 36.5 mL/min (>60); Globulin 2.8 gm/dL (2.3-3.5); Glucose 326 mg/dL (74-106); Magnesium 1.8 mg/dL (1.6-2.6); Osmolality,Calculated 297 (275-295); Phosphorous 2.4 mg/dL (2.4-5.1); Sodium 141 mMol/L (136-145); Total Protein 6.2 gm/dL (5.7-8.2); Vancomycin,Random 5.3 mcg/mL; eGFR > 60 See Note
[2024-06-21] MEDS: POTASSIUM CHLORIDE 10% 20 MEQ/15 ML UDC 40 MEQ GT (08:56)
[2024-06-21] MEDS: MULTIVITAMIN 15 ML UDC NG (08:56)
[2024-06-21] MEDS: AMPICILLIN/SULBAC INJ 1.5 GM in SODIUM CHLORIDE 0.9% (P) 50 ML IV ×2 (08:57→20:52)
[2024-06-21] MEDS: PANTOPRAZOLE INJ 40 MG VIAL IVP (08:57)
[2024-06-21] MEDS: THIAMINE INJ 100 MG/ML VIAL 2 ML IV (08:58)
[2024-06-21] MEDS: HYDROCORTISONE SOD SUCC INJ 100 MG VIAL 50 MG IV (08:58)
[2024-06-21] MEDS: VANCOMYCIN/NS 500 MG IVPB 100 ML 120 MG IV ×2 (11:27→21:39)
[2024-06-21] MEDS: POTASSIUM CHL 20 mEq IVPB 20 MEQ/100 ML BAG 50 MEQ IV ×2 (11:28→15:04)
[2024-06-21] MEDS: POT PHOS 15 mMol in NS 250 ML 15 MMOL/250 ML BAG 62.5 MMOL IV (12:04)
[2024-06-21] MEDS: Magnesium Sulfate 2 GM Ivpb 2 GM/50 ML BAG IV (12:04)
[2024-06-21] MEDS: FLUDROCORTISONE ACETATE 0.1 MG TABLET PO (12:04)
[2024-06-21] MEDS: NAPH,KPH MBDB 1 PACKET (1.5 GM) PO ×2 (12:05→20:52)
--- NOTE | 2024-06-21 20:07 | ESPR_ITS ---
Documentation for date of: 06/21/24 Subjective Subjective Interval history: 54 Y/O F with PMHx significant for Downs Syndrome, Schizophrenia,blindness, IBS, presents with chief complaint of AMS, last known normal 9 pm last night. Patient in unable to provide history, history taken from caregiver at bedside. Patient has had cough for about five days, noted sore throat. Patient has had diarrhea for 3 days, which is not uncommon for patient due to IBS. Patient was last seen at 9 pm last night. This morning patient was found unresponsive in her bed by caregiver. Patient is brought to ED, patient found to have low GCS, hypoxia with O2 sat 60% on nonrebreather, blood pressure 84 over palp. Patient was started on pressors, intubated. Patient had CODE BLUE, with 1 dose of epi before ROSC. Patient ventilated, started on sedation with propofol. Patient given 7 to 50 mL normal saline bolus and Rocephin in the ED. Blood urine and sputum cultures taken. Chest x-ray showed left-sided opacities. Head CT negative for hemorrhage, mass effect, midline shift. Labs significant for: WBC 13.4, hemoglobin 9.2 sodium 166, chloride 124, bicarb 31.8, BUN 62, creatinine 2.6, EGFR 22, troponin 0.236, albumin 3.2. Urinalysis indicates infection: Leukocyte esterase positive, 36 WBCs, rare bacteria. Initial ABG: pH 7.23, pCO2 69, pO2 153. Patient had low tidal volume/minute volume after intubation, vent settings changed for increased ventilation. Patient started on vancomycin and Zosyn. Patient had high Levophed requirements to maintain MAP, vasopressin added. Hydrocortisone initiated. Viral screen ordered. Patient given 1 L bolus lactated Ringer's. Patient remained unresponsive. ABG showed improvement after changing vent settings: pH 7.34, pCO2 57, pO2 65. 06/16/2024; Patient was seen and examined by bedside, Overnight patient had bradycardia episodes with heart rate dropping to low 30s for which dopamine drip was started, EKG this a.m. showed sinus bradycardia, patient's medications were reviewed for possible cause but none was found, patient has good urinary output overnight of around 500 cc, labs noted for correction of sodium from 166 to 157 with patient on D5W at 30 cc/hour, fluids were held by night team to avoid rapid correction, troponins trended down, Propofol stopped overnight, and fentanyl was discontinued around 2 PM, patient remains minimally responsive with sinus bradycardia. Continue patient on Zosyn, patient continues to be on Levophed and Vasopressin extravasation was noted around left forarm iv site after which pressors were discontinued and started at a different site, discussion with roofing layer, and family regarding need of central line placement for continuation of vasopressors for which consent was obtained and RIJ tri-lumen catheter was placed. Attempt to wean patient off dopamine was unsuccessful, patient continues to be on dopamine with heart rate around mid 40s. Bedside ultrasound showed engorgement of IVC indicating fluid overload will start patient on diuresis if if unable to wean vasopressors. 06/17/2024: Patient seen and examined at bedside. Patient remains minimally responsive despite being off sedatives. Patient remains bradycardic and hypotensive. On dopamine and levophed drips. Albumin and lasix drip initiated. Patient on D5W for hyponatremia, improving. Kidney function improving. Plan to initiate trickle feeds, will advance when off pressors. ABG pH 7.42, pCO2 54, pO2 77 with FiO2 60%. 06/18/2024: Patient seen and examined at bedside. Patient more responsive, withdraws from pain, does not open eyes. Patient remains bradycardic and hypotensive requiring dopamine and levophed. Patient had multiple large volume urine voiding overnight. Morning labs indicate a contraction alkalosis, lasix held for the day. Will have patient compensate with respirations, placed on spontaneous pressure support. Antibiotics narrowed from Zosyn to Unasyn. CXR showed improvement in consolidation, FiO2 titrated down to 40%. 06/19/2024: Patient seen and examined at bedside. Patient withdraws from pain, does not open eyes. Patient continues to have high levophed requirements to maintain MAP. Patient developed fever of 103.0 this morning. Emperic vancomycin was initiated, sputum culture and gram stain ordered. Patient remains on spontaneous pressure support, saturating well. In setting of high presser requirements, arterial line was ordered to verify accurate BP readings. Radial arteries were too small, so femoral arterial line was attempted. Right side arterial line attempt failed, with resulting hematoma covered with pressure dressing and demarcated after hemastasis was acheived. Left side attempt succeeded in placing line, but patient developed excessive bleeding around the catheter and a hematoma. After arterial line MAP read was verified to be 1 mmHg different than recycled cuff MAP, arterial line was removed. Pressure dressing applied and hematoma demarcated after hemastasis was achieved. Free water flushes initiated for hypernatremia. 06/20/2024: Patient seen and examined at bedside. Neuro status unchanged. Dopamine uptitrated to maintain heart rate, continues to require high levels of Levophed. Vasopressin added to maintain MAP. Patient heart rate and MAP improved with tactile stimulation. Patient continues to saturate well on pressure support with 40% FiO2. Hypernatremia resolved, decreasing free water flushes. Lasix held, ОЛЬГА resolving. Patient is increasing blood glucose, suspect secondary to steroids. Weaning down steroids. Hematomas is not expanding. 06/21/2024: Patient Exam Vital Signs Temp Pulse Resp BP Pulse Ox O2 Del Method FiO2 99.8 F 78 14 103/71 94 L Mechanical Ventilation 40 06/21/24 16:00 06/21/24 18:44 06/19/24 14:30 06/21/24 18:44 06/21/24 18:44 06/21/24 16:00 06/21/24 18:44 Narrative Exam PE: Gen: Extremely cachexic. Intubated. HEENT: Dry mucous membranes. Left eye heavily scarred, right eye glassy. Scarring around nares. CVS: normal S1 and S2. No M/R/G. Sinus bradycardia. Resp: No rhonchi, rales, crackles or wheezing. Coarse lung sounds. Abd: soft, non-tender, non-distended. MSK: No edema. Multiple old scars/wounds on all extremities, patient has history of self-inflicted injuries, picking at skin. Hematoma at left/right inguinal folds, not expanding. Neuro: GCS 6T, withdraws from pain. Objective Labs 07/03/24 04:59 07/03/24 04:59 Labs: Laboratory Results - last 24 hr 06/21/24 05:10 WBC 13.6 H RBC 2.25 L Hgb 7.6 L Hct 23.2 L MCV 103 H MCH 33.8 MCHC 32.8 RDW Std Deviation 55.1 H Plt Count 162 Neut % (Auto) 87 H Lymph % (Auto) 7 L [place] % (Auto) 3 Eos % (Auto) 0 Baso % (Auto) 0 Neut # (Auto) 11.8 H Lymph # (Auto) 1.0 [place] # (Auto) 0.4 Eos # (Auto) 0.0 Baso # (Auto) 0.0 Immature Gran # (Auto) 0.34 H Absolute Nucleated RBC 0.14 H Immature Gran % 3 H Nucleated RBC % 1 H Sodium 141 Potassium 3.0 L D Chloride 102 Carbon Dioxide 31.8 H Anion Gap 7 BUN 21 Creatinine 0.6 Estim Creat Clear Calc 36.5 L eGFR > 60 BUN/Creatinine Ratio 35 H Glucose 326 H D Calculated Osmolality 297 H Calcium 7.9 L Corrected Calcium 8.4 L Phosphorus 2.4 Magnesium 1.8 Total Bilirubin 0.3 AST 45 H ALT 79 H Alkaline Phosphatase 129 H Total Protein 6.2 Albumin 3.4 L Globulin 2.8 Albumin/Globulin Ratio 1.2 Random Vancomycin 5.3 ABG Interpretation ABG results: 06/15/24 06/15/24 06/15/24 11:06 14:05 17:00 ABG pH 7.23 L 7.33 L D 7.34 L ABG pCO2 69 H 56 H D 57 H ABG pO2 153 H 67 L D 65 L ABG HCO3 29 H 29 H 30 H ABG O2 Saturation 99 H 92 91 ABG Base Excess 0 3 4 H 06/16/24 06/17/24 06/18/24 04:04 04:36 04:04 ABG pH 7.35 7.42 7.53 H D ABG pCO2 57 H 54 H 57 H ABG pO2 58 L* 77 L 73 L ABG HCO3 31 H 35 H 47 H ABG O2 Saturation 88 L 96 96 ABG Base Excess 5 H 9 H 22 H 06/19/24 04:12 ABG pH 7.54 H ABG pCO2 50 H ABG pO2 61 L ABG HCO3 42 H ABG O2 Saturation 93 ABG Base Excess 18 H Quality Measures Quality Measures VTE prophylaxis Assessment & Plan Assessment Current Active Medications: Generic Name Dose Route Start Last Admin Trade Name Freq PRN Reason Stop Dose Admin Acetaminophen 650 mg 06/15/24 13:50 Acetaminophen Supp 650 Mg Supp NV 07/15/24 13:49 Q4HR PRN PAIN SCALE 1-3 (mild Acetaminophen 650 mg 06/19/24 07:27 06/19/24 07:43 Acetaminophen Noreen 325 Mg/10 Ml Udc NG 07/19/24 07:26 650 mg Q4HR PRN Administration Pain Or Fever > 100.4 Protocol Al Hydrox/Mg Hydrox/Simethicone 30 ml 06/15/24 13:50 Mg Hyd/Al Hyd/[place] (Maalox Reg) Susp 30 Ml Udc NG 07/15/24 13:49 Q4HR PRN Heartburn or Upset Stomach Fludrocortisone Acetate 0.1 mg 06/21/24 11:45 06/21/24 12:04 Fludrocortisone Acetate 0.1 Mg Tablet PO 07/21/24 11:44 0.1 mg QDAY LIZ Administration Heparin Sodium (Porcine) 5,000 unit 06/15/24 14:00 06/19/24 14:14 Heparin Sod Inj 5000 Unit/Ml Vial SC 06/29/24 13:59 Not Given Q8HR LIZ Norepinephrine/Dextrose 8 mg in 250 mls @ 1.791 mls/hr 06/15/24 22:04 06/21/24 18:00 Levophed In D5w 8mg/250ml IV 07/15/24 22:03 0.45 mcg/kg/min .Q24H PRN 16.116 mls/hr PER PROTOCOL Titration Protocol 0.05 MCG/KG/MIN Furosemide 200 mg/ Sodium 100 mls @ 5 mls/hr 06/17/24 10:56 06/18/24 07:15 Chloride IV 07/17/24 10:55 0 mls/hr .Q20H LIZ Infusion Ampicillin Sodium/Sulbactam 50 mls @ 100 mls/hr 06/18/24 10:15 06/21/24 15:46 Sodium 1.5 gm/ Sodium Chloride IV 06/22/24 10:14 Infused Q12HR LIZ Infusion Dopamine HCl/Dextrose 400 mg in 250 mls @ 3.581 mls/hr 06/19/24 18:40 06/21/24 18:00 Intropin In D5w Ivpb IV 07/16/24 03:34 13 mcg/kg/min .Q24H LIZ 9.311 mls/hr Titration Protocol 5 MCG/KG/MIN Vasopressin/Sodium Chloride 20 unit in 100 mls @ 9 mls/hr 06/20/24 09:54 06/21/24 18:11 Vasostrict/Ns Ivpb IV 07/20/24 09:53 0.03 unit/min .Q11H7M PRN 9 mls/hr PER PROTOCOL Administration Protocol 0.03 UNIT/MIN Vancomycin/Sodium Chloride 100 mls @ 120 mls/hr 06/21/24 10:00 06/21/24 15:46 Vancomycin/Ns 500 Mg Ivpb IV 06/28/24 09:59 Infused BID@1000,2200 LIZ Infusion Protocol Influenza Virus Vaccine Quadrival 0.5 ml 06/23/24 08:30 Influenza Virus Quadrivalent 0.5 Ml Syringe IMi 06/23/24 08:31 .ONCE ONE Magnesium Hydroxide 30 ml 06/15/24 13:50 Milk Of Magnesia Susp 30 Ml Udc NG 07/15/24 13:49 QDAY PRN CONSTIPATION Multivitamins/Minerals 15 ml 06/19/24 15:15 06/21/24 08:56 Multivitamin 15 Ml Udc NG 07/19/24 15:14 15 ml QDAY LIZ Administration Pantoprazole Sodium 40 mg 06/16/24 09:00 06/21/24 08:57 Pantoprazole Inj 40 Mg Vial IVP 07/16/24 08:59 40 mg QDAY LIZ Administration Pharmacy Consult 1 each 06/15/24 18:27 Pharmacy To Consult Pneumovacc XX 07/15/24 18:26 PRN PRN CONSULT Pharmacy Consult 1 each 06/19/24 10:15 Vancomycin Pharmacy To Dose 1 Each Each IV 07/19/24 10:14 QDAY PRN CONSULT Pneumococcal Polyvalent Vaccine 0.5 ml 06/23/24 09:00 Pneumoc 20-Karen Conj-Dip Crm/Pf 0.5 Ml Syringe IMi 06/23/24 09:01 .ONCE ONE Potassium Phos/Sodium Phos 1 packet 06/21/24 11:45 06/21/24 12:05 [facility] 1 Packet (1.5 Gm) PO 07/21/24 11:44 1 packet BID LIZ Administration Thiamine HCl 100 mg 06/19/24 15:15 06/21/24 08:58 Thiamine Inj 100 Mg/Ml Vial 2 Ml IV 07/19/24 15:14 100 mg QDAY LIZ Administration Plan 54 Y/O F with PMHx significant for Downs Syndrome, Schizophrenia,blindness, IBS, presents with chief complaint of AMS, last known normal 9 pm last night, admitted to ICU for septic shock requiring pressors and acute hypoxic respiratory failure requiring intubation. Neuro: #Acute encephalopathy Multifactorial: Infection, metabolic abnormalities, hypoxia, shock, CVA Low density areas in both basal ganglia seen on head CT Off sedation, withdraws to pain -Treat underlying conditions -Neuro consult placed, follow up -Atorvastatin and aspirin -Hold plavix due to low hemaglobin, hematomas Cardio: #Shock DDx: Adrenal insufficiency Patient blood pressure was initially 84 by palpation. Patient requires extensive pressors, vasopressin and Levophed and high doses. Bedside echo showed good left ventricular contractility, no signs of right ventricular overload. Patient is dehydrated, has had diarrhea for the past 3 days. IVC on bedside echo was variable. Patient received 750 mL normal saline bolus and 1 L of lactated Ringer's bolus. Bedside echo showed IVC congestion, patient continues to require pressors. Patient received Albumin with Lasix drip. Patient HR and BP worsened once hydrocortisone decreased. -Titrate pressors as tolerated -Hydrocortisone discontinued -Fludracortisone 0.1mg OG daily -Treat underlying conditions #Sinus bradycardia, resolving Patient developed sinus bradycardia, dropping to low 30's. EKG only showed sinus bradycardia. Patient started on dopamine drip, unable to be titrated off. Heart rate stable in high 40's. Patient maintaining heart rate around 50. Heart rate improves when patient receives tactile stimulation. Suspect due to adrenal insufficiency -Maintain dopamine drip, titrate as needed -Fludracortisone -telemonitoring Pulm: #AHRF, resolving DDx: Community acquired pneumonia versus aspiration Patient presented saturation 60% on nonrebreather mask. Patient was intubated and ventilated. Initial ABG pH 7.23, pCO2 69, pO2 153. Patient had poor minutes in tidal ventilation, vent settings adjusted. Follow-up ABG improved: pH 7.34, pCO2 57, pO2 65. Chest x-ray showed left-sided consolidation. Patient has history of Down syndrome, risk for aspiration pneumonia. Bacterial and viral pneumonia both possible. Influenza panel negative. MRSA screen negative. Patient maintaining saturations on sspntaneous pressure support with 40% FiO2. Patient developed new fever of 103.0, resolved. Repeat sputum culture ordered. -Follow-up sputum culture -Zosyn (06/16-06/18) changed to Unasyn (06/18-06/22) -Vancomycin pharmacy dosing (started 06/19) GI: #Severe protein malnutrition Patient BMI 14.9. Patient unable to provide history, per caregiver patient has good oral intake most times, has been malnourished for years due to chronic diarrhea, has not had significant weight loss recently. Patient has very little muscle mass, temporal wasting, sunken eyes. -Dietary consult, appreciate recommendations -Thiamine and multivitamin supplements -Tube feeds, advanced -daily labs -aggressive monitoring/repleating of potassium, phosphorous, magnesium #IBS Patient history of IBS. Patient had diarrhea for 3 days prior to admission, not unusual for patient. Patient has been having regular bowel movements during hospital stay. -Monitor bowel movements -Treat metabolic abnormalities as needed #Tube feeds Trickle feeds initiated, advanced to goal rate of 35 ml/hr. Renal: #ОЛЬГА, resolved DDx: Prerenal due to dehydration versus ischemic ATN Patient presented with BUN 62, creatinine 2.6, eGFR 22. No previous labs to compare to. Patient has adequate urine output. Patient appears severely dehydrated exam, has received multiple boluses of fluid, on IVF. Patient was also severely hypotensive, requiring significant pressor support. Patient recieved albumin and lasix drip, lasix held next day Holding Lasix, renal function labs normalizing. Patient continues to have good urine output. -Holding Lasix due to contraction alkalosis -Monitor daily labs -Avoid nephrotoxins -Monitor urine output #Hypernatremia, resolved Likely due to severe dehydration. Sodium admission is 166. Patient received 150 mL bolus normal saline in the ED. Patient was then given 1 L bolus lactated Ringer's. Improving with D5W IVF. Down to 157. Down to 154, fluids held. Gentle diuresis. Resolved with free water flushes. -250cc free water flushes q8hr Endo: #Adrenal insufficiency Suspect due to chronic malnutrition. Patient arrived with hypotension, hypernatremia. Patient has been hypokalemic despite repletion and bradycardic. Clinical improvement with hydrocortisone followed by worsening when dosage reduced. -Fludracortisone 0.1mg OG daily -monitor sodium and potassium #Hyperglycemia Patient has mild hyperglycemia, trending up. No history of diabetes. Likely due to steroid treatment. -Reduced steroid treatment from hydrocortisone 50 mg every 6 hours to every 12 hours. -Monitor Heme: #Hematomas Hematomas in bilateral inguinal folds as complications of attempted femoral arterial line placement. -pressure dressings -demarcations to monitor for expansion -hold DVT prophylaxis #Macrocytic anemia Patient hemoglobin 9.2, MCV 114. No previous labs to compare to. No obvious signs of acute bleeding. Folate and B12 not depleted. -Monitor #Leukocytosis Likely due to underlying infection. Possibility of increase due to steroids. Trending down. -Monitor ID: #New fever Patient developed a fever of 103.0 the morning of hospital day 4. CXR showed improvement of consolidations. New sputum culture ordered. Patient did not have further fevers. -Follow up sputum culture -empiric Vancomycin for new fever (started 06/19) #UTI Patient urinalysis indicated UTI: Positive leukocyte esterase, rare bacteria, 36 WBCs. Cultures grew mckeon-sensitive E. Coli. -On Unasyn #Pneumonia Patient in acute hypoxic respiratory failure, chest x-ray with left-sided consolidations. -On Unasyn (started 06/16) Skin/MSK: #No active issues Lines: RIJ/PIV DVT prophylaxis: Held due to hematomas G.I prophylaxis: Pantoprazole Code: Full code Patient's plan of care discussed with attending Dr. Ashley. Live Cerrato MD PGY-1 Attending Provider Attestation/Addendum Patient seen and examined with above resident, Live Rojas MD. I agree with the findings, assessment, and plan of care as documented except for any differences below. Patient with acute respiratory failure secondary to community-acquired pneumonia now on treatment with broad-spectrum antibiotics with vancomycin and Unasyn. Patient continues to require multiple pressors and notably had worsening hypotension after discontinuation of stress dose steroids using hydrocortisone. Suspect there is component of relative adrenal insufficiency though will not be able to testing as the patient has already received exogenous steroids. Patient will be started on fludrocortisone along with appropriate fluid resuscitation. Patient with improving urinary output and will work on maintaining appropriate fluid balance to ensure patient's ability to be weaned from mechanical elation coming days. Patient receiving enteral nutrition and remains on appropriate prophylaxis. Total critical care time: I personally spent 35 minutes for review of physiologic parameters, directing plan of care throughout the day, coordination of care with other subspecialties, and counseling patient's family at bedside. This is exclusive of time spent teaching housestaff or performing separate billable procedures. Patient continues to require critical care services for acute hypoxic respiratory failure requiring mechanical ventilation and distributive/septic shock on multiple IV pressors. Patient continues to be at high risk for increased morbidity and mortality without appropriate intervention only available in the intensive care unit.
[2024-06-21] MEDS: ATORVASTATIN CALCIUM 20 MG TABLET 40 MG PO (20:52)
[2024-06-22] VITALS (102 sets, daily range): BP systolic 65–126; BP diastolic 43–78; PULSE 56–101; RESP 12–43; TEMP 36.9–37.8; O2SAT 89–100
[2024-06-22] MEDS: Norepinephrine/D5W 8mg/250ml 8 MG/250 ML BAG 14.683 MG IV (00:44)
[2024-06-22] MEDS: VASOPRESSIN IN NS IVPB 20 UNIT/100 ML BAG 9 UNIT IV ×2 (04:20→18:07)
[2024-06-22 06:28] LABS: Basophils % (Auto) 0 % (0-2.5); Eosinophils # (Auto) 0.1 Thou/mm3 (0.0-0.5); Eosinophils % (Auto) 0 % (0-10); Immature Granulocytes % (Auto) 4 % (0-0); Lymphocytes # (Auto) 1.1 Thou/mm3 (1.0-4.8); Lymphocytes % (Auto) 6 % (10-50); Mean Corpuscular HGB Conc 33.3 g/dl (31.0-37.0); Mean Corpuscular Volume 105 fL (80-100); Monocytes # (Auto) 0.7 Thou/mm3 (0.0-0.8); Monocytes % (Auto) 4 % (0-12); Neutrophils % (Auto) 86 % (37-80); Nucleated Red Blood Cell # 0.22 Thou/mm3 (0.00-0.00); Nucleated Red Blood Cell % 1 /100 WBC (0); Platelet Count 204 Thou/mm3 (140-440); RDW Standard Deviation 55.6 fL (36.4-46.3); White Blood Count 18.5 Thou/mm3 (3.6-11.0)
[2024-06-22 06:34] LABS: Alanine Aminotransferase 81 U/L (10-49); Albumin, Serum 3.1 gm/dL (3.5-5.0); Albumin/Globulin Ratio 1.2 (1.2-2.2); Alkaline Phosphatase 135 U/L (46-116); Anion Gap 6 (7-16); Aspartate Amino Transferase 61 U/L (0-34); BUN/Creatinine Ratio 28 Ratio (12-20); Bilirubin,Total 0.3 mg/dL (0.3-1.2); Blood Urea Nitrogen 14 mg/dL (9-23); Calcium 7.4 mg/dL (8.3-10.6); Calcium (Corrected) 8.1 mg/dL (8.5-10.1); Carbon Dioxide 28.6 mMol/L (20.0-31.0); Chloride 99 mMol/L (98-107); Creatinine (Component) 0.5 mg/dL (0.6-1.3); Estimated Creatinine Clearance 44.5 mL/min (>60); Globulin 2.5 gm/dL (2.3-3.5); Glucose 307 mg/dL (74-106); Magnesium 1.8 mg/dL (1.6-2.6); Osmolality,Calculated 280 (275-295); Phosphorous 2.3 mg/dL (2.4-5.1); Sodium 134 mMol/L (136-145); Total Protein 5.6 gm/dL (5.7-8.2); eGFR > 60 See Note
[2024-06-22] MEDS: DOPamine/D5w 400 MG IVPB 400 MG/250 ML BAG 7.879 MG IV (09:00)
[2024-06-22] MEDS: AMPICILLIN/SULBAC INJ 1.5 GM in SODIUM CHLORIDE 0.9% (P) 50 ML IV (09:05)
[2024-06-22] MEDS: PANTOPRAZOLE INJ 40 MG VIAL IVP (09:06)
[2024-06-22] MEDS: NAPH,KPH MBDB 1 PACKET (1.5 GM) PO ×3 (09:06→21:21)
[2024-06-22] MEDS: ASPIRIN EC 81 MG TABEC PO (09:07)
[2024-06-22] MEDS: FLUDROCORTISONE ACETATE 0.1 MG TABLET PO (09:08)
[2024-06-22] MEDS: Magnesium Sulfate 2 GM Ivpb 2 GM/50 ML BAG IV (09:09)
[2024-06-22] MEDS: THIAMINE INJ 100 MG/ML VIAL 2 ML IV (09:09)
[2024-06-22] MEDS: MULTIVITAMIN 15 ML UDC NG (09:10)
[2024-06-22 09:25] LABS: Vancomycin,Trough 8.3 mcg/mL (5.0-10.0)
[2024-06-22] MEDS: VANCOMYCIN/NS 500 MG IVPB 100 ML 120 MG IV ×2 (11:12→21:22)
[2024-06-22] MEDS: HYDROCORTISONE 5 MG TABLET NG ×2 (13:22→21:21)
[2024-06-22] MEDS: Norepinephrine/D5W 8mg/250ml 8 MG/250 ML BAG 15.041 MG IV (17:10)
--- NOTE | 2024-06-22 17:23 | ESPR_ITS ---
Documentation for date of: 06/22/24 Subjective Subjective Interval history: 54 Y/O F with PMHx significant for Downs Syndrome, Schizophrenia,blindness, IBS, presents with chief complaint of AMS, last known normal 9 pm last night. Patient in unable to provide history, history taken from caregiver at bedside. Patient has had cough for about five days, noted sore throat. Patient has had diarrhea for 3 days, which is not uncommon for patient due to IBS. Patient was last seen at 9 pm last night. This morning patient was found unresponsive in her bed by caregiver. Patient is brought to ED, patient found to have low GCS, hypoxia with O2 sat 60% on nonrebreather, blood pressure 84 over palp. Patient was started on pressors, intubated. Patient had CODE BLUE, with 1 dose of epi before ROSC. Patient ventilated, started on sedation with propofol. Patient given 7 to 50 mL normal saline bolus and Rocephin in the ED. Blood urine and sputum cultures taken. Chest x-ray showed left-sided opacities. Head CT negative for hemorrhage, mass effect, midline shift. Labs significant for: WBC 13.4, hemoglobin 9.2 sodium 166, chloride 124, bicarb 31.8, BUN 62, creatinine 2.6, EGFR 22, troponin 0.236, albumin 3.2. Urinalysis indicates infection: Leukocyte esterase positive, 36 WBCs, rare bacteria. Initial ABG: pH 7.23, pCO2 69, pO2 153. Patient had low tidal volume/minute volume after intubation, vent settings changed for increased ventilation. Patient started on vancomycin and Zosyn. Patient had high Levophed requirements to maintain MAP, vasopressin added. Hydrocortisone initiated. Viral screen ordered. Patient given 1 L bolus lactated Ringer's. Patient remained unresponsive. ABG showed improvement after changing vent settings: pH 7.34, pCO2 57, pO2 65. 06/16/2024; Patient was seen and examined by bedside, Overnight patient had bradycardia episodes with heart rate dropping to low 30s for which dopamine drip was started, EKG this a.m. showed sinus bradycardia, patient's medications were reviewed for possible cause but none was found, patient has good urinary output overnight of around 500 cc, labs noted for correction of sodium from 166 to 157 with patient on D5W at 30 cc/hour, fluids were held by night team to avoid rapid correction, troponins trended down, Propofol stopped overnight, and fentanyl was discontinued around 2 PM, patient remains minimally responsive with sinus bradycardia. Continue patient on Zosyn, patient continues to be on Levophed and Vasopressin extravasation was noted around left forarm iv site after which pressors were discontinued and started at a different site, discussion with adult educator, and family regarding need of central line placement for continuation of vasopressors for which consent was obtained and RIJ tri-lumen catheter was placed. Attempt to wean patient off dopamine was unsuccessful, patient continues to be on dopamine with heart rate around mid 40s. Bedside ultrasound showed engorgement of IVC indicating fluid overload will start patient on diuresis if if unable to wean vasopressors. 06/17/2024: Patient seen and examined at bedside. Patient remains minimally responsive despite being off sedatives. Patient remains bradycardic and hypotensive. On dopamine and levophed drips. Albumin and lasix drip initiated. Patient on D5W for hyponatremia, improving. Kidney function improving. Plan to initiate trickle feeds, will advance when off pressors. ABG pH 7.42, pCO2 54, pO2 77 with FiO2 60%. 06/18/2024: Patient seen and examined at bedside. Patient more responsive, withdraws from pain, does not open eyes. Patient remains bradycardic and hypotensive requiring dopamine and levophed. Patient had multiple large volume urine voiding overnight. Morning labs indicate a contraction alkalosis, lasix held for the day. Will have patient compensate with respirations, placed on spontaneous pressure support. Antibiotics narrowed from Zosyn to Unasyn. CXR showed improvement in consolidation, FiO2 titrated down to 40%. 06/19/2024: Patient seen and examined at bedside. Patient withdraws from pain, does not open eyes. Patient continues to have high levophed requirements to maintain MAP. Patient developed fever of 103.0 this morning. Emperic vancomycin was initiated, sputum culture and gram stain ordered. Patient remains on spontaneous pressure support, saturating well. In setting of high presser requirements, arterial line was ordered to verify accurate BP readings. Radial arteries were too small, so femoral arterial line was attempted. Right side arterial line attempt failed, with resulting hematoma covered with pressure dressing and demarcated after hemastasis was acheived. Left side attempt succeeded in placing line, but patient developed excessive bleeding around the catheter and a hematoma. After arterial line MAP read was verified to be 1 mmHg different than recycled cuff MAP, arterial line was removed. Pressure dressing applied and hematoma demarcated after hemastasis was achieved. Free water flushes initiated for hypernatremia. 06/20/2024: Patient seen and examined at bedside. Neuro status unchanged. Dopamine uptitrated to maintain heart rate, continues to require high levels of Levophed. Vasopressin added to maintain MAP. Patient heart rate and MAP improved with tactile stimulation. Patient continues to saturate well on pressure support with 40% FiO2. Hypernatremia resolved, decreasing free water flushes. Lasix held, ОЛЬГА resolving. Patient is increasing blood glucose, suspect secondary to steroids. Weaning down steroids. Hematomas is not expanding. 06/21/2024: Overnight, the cuff for ET tube became detached, requiring new ET tube to be placed, which occurred without incident. Patient seen and examined at bedside. Neuro status unchanged. Neuro consult placed for low density areas in both basal ganglia on head CT. Fludrocortisone initiated for adrenal insufficiency. 06/21/2024: Patient seen and examined at bedside. Patient more alert this morning, still very somnolent. EEG ordered. Changed pressor status: Dopamine set at 10, will titrate Levophed. Discussed with adult educator regarding risks and benefits of extubation, adult educator wishes to decide tomorrow after consulting with rest of family. Unasyn finished today. Exam Vital Signs Temp Pulse Resp BP Pulse Ox O2 Del Method FiO2 100.1 F 64 14 91/58 L 94 L Mechanical Ventilation 45 06/22/24 12:00 06/22/24 17:10 06/19/24 14:30 06/22/24 17:10 06/22/24 15:15 06/22/24 12:00 06/22/24 16:00 Narrative Exam PE: Gen: Extremely cachexic. Intubated. HEENT: Dry mucous membranes. Left eye heavily scarred, right eye glassy. Scarring around nares. CVS: normal S1 and S2. No M/R/G. Sinus bradycardia. Resp: No rhonchi, rales, crackles or wheezing. Coarse lung sounds. Abd: soft, non-tender, non-distended. MSK: No edema. Multiple old scars/wounds on all extremities, patient has history of self-inflicted injuries, picking at skin. Hematoma at left/right inguinal folds, not expanding. Neuro: Somnolent, intermittent alertness. Objective Labs 07/03/24 04:59 07/03/24 04:59 Labs: Laboratory Results - last 24 hr 06/22/24 06/22/24 04:49 08:55 WBC 18.5 H RBC 2.00 L Hgb 7.0 L Hct 21.0 L* MCV 105 H MCH 35.0 MCHC 33.3 RDW Std Deviation 55.6 H Plt Count 204 D Neut % (Auto) 86 H Lymph % (Auto) 6 L [place] % (Auto) 4 Eos % (Auto) 0 Baso % (Auto) 0 Neut # (Auto) 16.0 H Lymph # (Auto) 1.1 [place] # (Auto) 0.7 Eos # (Auto) 0.1 Baso # (Auto) 0.0 Immature Gran # (Auto) 0.70 H Absolute Nucleated RBC 0.22 H Immature Gran % 4 H Nucleated RBC % 1 H Sodium 134 L Potassium 4.0 D Chloride 99 Carbon Dioxide 28.6 Anion Gap 6 L BUN 14 Creatinine 0.5 L Estim Creat Clear Calc 44.5 L eGFR > 60 BUN/Creatinine Ratio 28 H Glucose 307 H Calculated Osmolality 280 Calcium 7.4 L Corrected Calcium 8.1 L Phosphorus 2.3 L Magnesium 1.8 Total Bilirubin 0.3 AST 61 H ALT 81 H Alkaline Phosphatase 135 H Total Protein 5.6 L Albumin 3.1 L Globulin 2.5 Albumin/Globulin Ratio 1.2 Vancomycin Trough 8.3 ABG Interpretation ABG results: 06/15/24 06/15/24 06/15/24 11:06 14:05 17:00 ABG pH 7.23 L 7.33 L D 7.34 L ABG pCO2 69 H 56 H D 57 H ABG pO2 153 H 67 L D 65 L ABG HCO3 29 H 29 H 30 H ABG O2 Saturation 99 H 92 91 ABG Base Excess 0 3 4 H 06/16/24 06/17/24 06/18/24 04:04 04:36 04:04 ABG pH 7.35 7.42 7.53 H D ABG pCO2 57 H 54 H 57 H ABG pO2 58 L* 77 L 73 L ABG HCO3 31 H 35 H 47 H ABG O2 Saturation 88 L 96 96 ABG Base Excess 5 H 9 H 22 H 06/19/24 04:12 ABG pH 7.54 H ABG pCO2 50 H ABG pO2 61 L ABG HCO3 42 H ABG O2 Saturation 93 ABG Base Excess 18 H Quality Measures Quality Measures VTE prophylaxis Assessment & Plan Assessment Current Active Medications: Generic Name Dose Route Start Last Admin Trade Name Freq PRN Reason Stop Dose Admin Acetaminophen 650 mg 06/15/24 13:50 Acetaminophen Supp 650 Mg Supp NM 07/15/24 13:49 Q4HR PRN PAIN SCALE 1-3 (mild Acetaminophen 650 mg 06/19/24 07:27 06/19/24 07:43 Acetaminophen Noreen 325 Mg/10 Ml Udc NG 07/19/24 07:26 650 mg Q4HR PRN Administration Pain Or Fever > 100.4 Protocol Al Hydrox/Mg Hydrox/Simethicone 30 ml 06/15/24 13:50 Mg Hyd/Al Hyd/[place] (Maalox Reg) Susp 30 Ml Udc NG 07/15/24 13:49 Q4HR PRN Heartburn or Upset Stomach Aspirin 81 mg 06/22/24 09:00 06/22/24 09:07 Aspirin Ec 81 Mg Tabec PO 07/22/24 08:59 81 mg QDAY LIZ Administration Atorvastatin Calcium 40 mg 06/21/24 21:00 06/21/24 20:52 Atorvastatin Calcium 20 Mg Tablet PO 07/21/24 20:59 40 mg HS LIZ Administration Fludrocortisone Acetate 0.1 mg 06/21/24 11:45 06/22/24 09:08 Fludrocortisone Acetate 0.1 Mg Tablet PO 07/21/24 11:44 0.1 mg QDAY LIZ Administration Heparin Sodium (Porcine) 5,000 unit 06/15/24 14:00 06/19/24 14:14 Heparin Sod Inj 5000 Unit/Ml Vial SC 06/29/24 13:59 Not Given Q8HR LIZ Hydrocortisone 5 mg 06/22/24 14:00 06/22/24 13:22 Hydrocortisone 5 Mg Tablet NG 07/22/24 13:59 5 mg TID LIZ Administration Norepinephrine/Dextrose 8 mg in 250 mls @ 1.791 mls/hr 06/15/24 22:04 06/22/24 17:10 Levophed In D5w 8mg/250ml IV 07/15/24 22:03 0.42 mcg/kg/min .Q24H PRN 15.041 mls/hr PER PROTOCOL Administration Protocol 0.05 MCG/KG/MIN Furosemide 200 mg/ Sodium 100 mls @ 5 mls/hr 06/17/24 10:56 06/18/24 07:15 Chloride IV 07/17/24 10:55 0 mls/hr .Q20H LIZ Infusion Dopamine HCl/Dextrose 400 mg in 250 mls @ 3.581 mls/hr 06/19/24 18:40 06/22/24 15:00 Intropin In D5w Ivpb IV 07/16/24 03:34 10 mcg/kg/min .Q24H LIZ 7.163 mls/hr Titration Protocol 5 MCG/KG/MIN Vasopressin/Sodium Chloride 20 unit in 100 mls @ 9 mls/hr 06/20/24 09:54 06/22/24 04:20 Vasostrict/Ns Ivpb IV 07/20/24 09:53 0.03 unit/min .Q11H7M PRN 9 mls/hr PER PROTOCOL Administration Protocol 0.03 UNIT/MIN Vancomycin/Sodium Chloride 100 mls @ 120 mls/hr 06/22/24 09:45 06/22/24 15:49 Vancomycin/Ns 500 Mg Ivpb IV 06/29/24 09:44 Infused Q8HR LIZ Infusion Protocol Influenza Virus Vaccine Quadrival 0.5 ml 06/23/24 08:30 Influenza Virus Quadrivalent 0.5 Ml Syringe IMi 06/23/24 08:31 .ONCE ONE Magnesium Hydroxide 30 ml 06/15/24 13:50 Milk Of Magnesia Susp 30 Ml Udc NG 07/15/24 13:49 QDAY PRN CONSTIPATION Multivitamins/Minerals 15 ml 06/19/24 15:15 06/22/24 09:10 Multivitamin 15 Ml Udc NG 07/19/24 15:14 15 ml QDAY LIZ Administration Pantoprazole Sodium 40 mg 06/16/24 09:00 06/22/24 09:06 Pantoprazole Inj 40 Mg Vial IVP 07/16/24 08:59 40 mg QDAY LIZ Administration Pharmacy Consult 1 each 06/15/24 18:27 Pharmacy To Consult Pneumovacc XX 07/15/24 18:26 PRN PRN CONSULT Pharmacy Consult 1 each 06/19/24 10:15 Vancomycin Pharmacy To Dose 1 Each Each IV 07/19/24 10:14 QDAY PRN CONSULT Pneumococcal Polyvalent Vaccine 0.5 ml 06/23/24 09:00 Pneumoc 20-Karen Conj-Dip Crm/Pf 0.5 Ml Syringe IMi 06/23/24 09:01 .ONCE ONE Potassium Phos/Sodium Phos 1 packet 06/21/24 11:45 06/22/24 09:06 [facility] 1 Packet (1.5 Gm) PO 07/21/24 11:44 1 packet BID LIZ Administration Thiamine HCl 100 mg 06/19/24 15:15 06/22/24 09:09 Thiamine Inj 100 Mg/Ml Vial 2 Ml IV 07/19/24 15:14 100 mg QDAY LIZ Administration Plan 54 Y/O F with PMHx significant for Downs Syndrome, Schizophrenia,blindness, IBS, presents with chief complaint of AMS, last known normal 9 pm last night, admitted to ICU for septic shock requiring pressors and acute hypoxic respiratory failure requiring intubation. Neuro: #Acute encephalopathy Multifactorial: Infection, metabolic abnormalities, hypoxia, shock, CVA Low density areas in both basal ganglia seen on head CT Off sedation, withdraws to pain -EEG ordered, follow-up -Treat underlying conditions -Neuro consult placed, follow up -Atorvastatin and aspirin -Hold plavix due to low hemoglobin, hematomas Cardio: #Shock DDx: Adrenal insufficiency Patient blood pressure was initially 84 by palpation. Patient requires extensive pressors, vasopressin and Levophed and high doses. Bedside echo showed good left ventricular contractility, no signs of right ventricular overload. Patient is dehydrated, has had diarrhea for the past 3 days. IVC on bedside echo was variable. Patient received 750 mL normal saline bolus and 1 L of lactated Ringer's bolus. Bedside echo showed IVC congestion, patient continues to require pressors. Patient received Albumin with Lasix drip. Patient HR and BP worsened once hydrocortisone decreased. -Titrate Levophed to maintain MAP greater than 60 -Dopamine set at 10 mcg/KG/MIN -Hydrocortisone 5 mg NG 3 times daily -Fludracortisone 0.1mg OG daily -Treat underlying conditions #Sinus bradycardia, resolving Patient developed sinus bradycardia, dropping to low 30's. EKG only showed sinus bradycardia. Patient started on dopamine drip, unable to be titrated off. Heart rate stable in high 40's. Patient maintaining heart rate around 50. Heart rate improves when patient receives tactile stimulation. Suspect due to adrenal insufficiency -Dopamine drip set at 10 mcg/KG/MIN -Fludracortisone -telemonitoring Pulm: #AHRF, resolving DDx: Community acquired pneumonia versus aspiration Patient presented saturation 60% on nonrebreather mask. Patient was intubated and ventilated. Initial ABG pH 7.23, pCO2 69, pO2 153. Patient had poor minutes in tidal ventilation, vent settings adjusted. Follow-up ABG improved: pH 7.34, pCO2 57, pO2 65. Chest x-ray showed left-sided consolidation. Patient has history of Down syndrome, risk for aspiration pneumonia. Bacterial and viral pneumonia both possible. Influenza panel negative. MRSA screen negative. Patient maintaining saturations on sspntaneous pressure support with 40% FiO2. Patient developed new fever of 103.0, resolved. Repeat sputum culture ordered. -Follow-up sputum culture -Zosyn (06/16-06/18) changed to Unasyn (06/18-06/22) -Vancomycin pharmacy dosing (started 06/19) GI: #Severe protein malnutrition Patient BMI 14.9. Patient unable to provide history, per caregiver patient has good oral intake most times, has been malnourished for years due to chronic diarrhea, has not had significant weight loss recently. Patient has very little muscle mass, temporal wasting, sunken eyes. -Dietary consult, appreciate recommendations -Thiamine and multivitamin supplements -Tube feeds, advanced -daily labs -Every 8 hours BMP, phosphorus, magnesium -aggressive monitoring/repleating of potassium, phosphorous, magnesium #IBS Patient history of IBS. Patient had diarrhea for 3 days prior to admission, not unusual for patient. Patient has been having regular bowel movements during hospital stay. -Monitor bowel movements -Treat metabolic abnormalities as needed #Tube feeds Trickle feeds initiated, advanced to goal rate of 35 ml/hr. Renal: #ОЛЬГА, resolved DDx: Prerenal due to dehydration versus ischemic ATN Patient presented with BUN 62, creatinine 2.6, eGFR 22. No previous labs to compare to. Patient has adequate urine output. Patient appears severely dehydrated exam, has received multiple boluses of fluid, on IVF. Patient was also severely hypotensive, requiring significant pressor support. Patient recieved albumin and lasix drip, lasix held next day Holding Lasix, renal function labs normalizing. Patient continues to have good urine output. -Monitor closely, maintain euvolemia -Monitor daily labs -Avoid nephrotoxins -Monitor urine output #Hypernatremia, resolved Likely due to severe dehydration. Sodium admission is 166. Patient received 150 mL bolus normal saline in the ED. Patient was then given 1 L bolus lactated Ringer's. Improving with D5W IVF. Down to 157. Down to 154, fluids held. Gentle diuresis. Resolved with free water flushes. -250cc free water flushes q8hr Endo: #Adrenal insufficiency Suspect due to chronic malnutrition. Patient arrived with hypotension, hypernatremia. Patient has been hypokalemic despite repletion and bradycardic. Clinical improvement with hydrocortisone followed by worsening when dosage reduced. -Fludracortisone 0.1mg OG daily -monitor sodium and potassium #Hyperglycemia Patient has mild hyperglycemia, trending up. No history of diabetes. Likely due to steroid treatment. Downtrending -Monitor Heme: #Hematomas Hematomas in bilateral inguinal folds as complications of attempted femoral arterial line placement. -pressure dressings -demarcations to monitor for expansion -hold DVT prophylaxis #Macrocytic anemia Patient hemoglobin 9.2, MCV 114. No previous labs to compare to. No obvious signs of acute bleeding. Folate and B12 not depleted. -Monitor #Leukocytosis Likely due to underlying infection. Possibility of increase due to steroids. Trending down. -Monitor ID: #New fever Patient developed a fever of 103.0 the morning of hospital day 4. CXR showed improvement of consolidations. New sputum culture ordered. Patient did not have further fevers. -Follow up sputum culture -empiric Vancomycin for new fever (started 06/19) #UTI Patient urinalysis indicated UTI: Positive leukocyte esterase, rare bacteria, 36 WBCs. Cultures grew mckeon-sensitive E. Coli. -On Unasyn #Pneumonia Patient in acute hypoxic respiratory failure, chest x-ray with left-sided consolidations. -On Unasyn (started 06/16) Skin/MSK: #No active issues Lines: RIJ/PIV DVT prophylaxis: Held due to hematomas G.I prophylaxis: Pantoprazole Code: Full code Patient's plan of care discussed with attending Dr. Ashley. Live Cerrato MD PGY-1 Attending Provider Attestation/Addendum Patient seen and examined with above resident, Live Rojas MD. I agree with the findings, assessment, and plan of care as documented except for any differences below. Patient more alert this morning with no sedation being used as the patient remains comfortable on mechanical ventilation with ET tube in place. Patient with bradycardia predominantly which may be playing a role in after more so than distributive shock. Will adjust vasopressors to predominantly favored dopamine higher doses with the attempts to wean off Levophed. Patient tolerating fludrocortisone well. Patient completed antibiotic course of Unasyn. She is able to tolerate pressure support and will mechanical ventilation settings but her mentation continues to be a rate limiting step in ability to extubate. We will make plan of care appropriately based on discussion with her caregiver/primary surrogate before extubation as she remains at high risk for reintubation due to her limited reserves from prolonged critical illness, pre-existing protein calorie malnutrition, and now pulmonary insult in the form of pneumonia. Patient secretions remain an issue as well as we will continue to monitor this as antibiotics are adequate time to help with clearance. Patient does have cough reflex but I suspect this is inadequate at this point to successfully wean from ventilation. She remains on adequate tube feed rate and appropriate prophylaxis. Will discontinue lines as appropriate. Total critical care time: I personally spent 35 minutes for review of physiologic parameters, directing plan of care throughout the day, and counseling patient's family at bedside. This is exclusive of time spent teaching housestaff or performing any separate billable procedures.
[2024-06-22 17:43] LABS: Base Excess, Venous 6 (-3-3); O2 Saturation, Venous 99 % (96-97); PCO2, Venous 43 mmHg (36-56); PO2, Venous 98 mmHg (15-58); pH, Venous 7.46 (7.33-7.66)
[2024-06-22] MEDS: ATORVASTATIN CALCIUM 20 MG TABLET 40 MG PO (21:34)
[2024-06-23] VITALS (110 sets, daily range): BP systolic 74–132; BP diastolic 41–76; PULSE 40–93; RESP 7–64; TEMP 37–37.4; O2SAT 87–100; BMI 13.6
--- NOTE | 2024-06-23 04:53 | RESP.EEG ---
EEG captured and ready to be read
[2024-06-23] MEDS: VANCOMYCIN/NS 500 MG IVPB 100 ML 120 MG IV (05:53)
[2024-06-23] MEDS: HYDROCORTISONE 5 MG TABLET NG (05:53)
[2024-06-23] MEDS: VASOPRESSIN IN NS IVPB 20 UNIT/100 ML BAG 9 UNIT IV ×2 (05:54→15:27)
[2024-06-23 06:15] LABS: Basophils % (Auto) 0 % (0-2.5); Eosinophils # (Auto) 0.1 Thou/mm3 (0.0-0.5); Eosinophils % (Auto) 0 % (0-10); Immature Granulocytes % (Auto) 4 % (0-0); Immature Granulocytes Auto 0.74 Thou/mm3 (0.00-0.00); Lymphocytes # (Auto) 1.6 Thou/mm3 (1.0-4.8); Lymphocytes % (Auto) 8 % (10-50); Mean Corpuscular HGB Conc 34.7 g/dl (31.0-37.0); Mean Corpuscular Hemoglobin 34.3 pg (25.0-35.0); Mean Corpuscular Volume 99 fL (80-100); Monocytes # (Auto) 0.4 Thou/mm3 (0.0-0.8); Monocytes % (Auto) 2 % (0-12); Neutrophils # (Auto) 16.3 Thou/mm3 (1.8-7.7); Neutrophils % (Auto) 85 % (37-80); Nucleated Red Blood Cell % 1 /100 WBC (0); Platelet Count 237 Thou/mm3 (140-440); RDW Standard Deviation 49.6 fL (36.4-46.3); Red Blood Count 2.01 Miln/mm3 (4.00-5.20); White Blood Count 19.1 Thou/mm3 (3.6-11.0)
[2024-06-23 06:18] LABS: Hematocrit 19.9 % (36.0-46.0); Hemoglobin 6.9 g/dL (12.0-16.0)
[2024-06-23 06:38] LABS: Alanine Aminotransferase 75 U/L (10-49); Albumin, Serum 3.2 gm/dL (3.5-5.0); Albumin/Globulin Ratio 1.1 (1.2-2.2); Alkaline Phosphatase 141 U/L (46-116); Anion Gap 7 (7-16); Aspartate Amino Transferase 40 U/L (0-34); BUN/Creatinine Ratio 23 Ratio (12-20); Bilirubin,Total 0.4 mg/dL (0.3-1.2); Blood Urea Nitrogen 9 mg/dL (9-23); Calcium 7.5 mg/dL (8.3-10.6); Calcium (Corrected) 8.1 mg/dL (8.5-10.1); Carbon Dioxide 30.2 mMol/L (20.0-31.0); Chloride 88 mMol/L (98-107); Creatinine (Component) 0.4 mg/dL (0.6-1.3); Estimated Creatinine Clearance 52.7 mL/min (>60); Globulin 2.8 gm/dL (2.3-3.5); Glucose 199 mg/dL (74-106); Magnesium 1.6 mg/dL (1.6-2.6); Osmolality,Calculated 256 (275-295); Phosphorous 2.9 mg/dL (2.4-5.1); Sodium 125 mMol/L (136-145); eGFR > 60 See Note
[2024-06-23] MEDS: Magnesium Sulfate 2 GM Ivpb 2 GM/50 ML BAG IV (09:19)
[2024-06-23] MEDS: NAPH,KPH MBDB 1 PACKET (1.5 GM) PO ×2 (09:19→21:50)
[2024-06-23] MEDS: FLUDROCORTISONE ACETATE 0.1 MG TABLET PO (09:19)
[2024-06-23] MEDS: MULTIVITAMIN 15 ML UDC NG (09:19)
[2024-06-23] MEDS: ASPIRIN 81 MG CHEW PO (09:19)
[2024-06-23] MEDS: POTASSIUM CHLORIDE 10% 20 MEQ/15 ML UDC 40 MEQ NG (09:19)
[2024-06-23] MEDS: CALCIUM CARBONATE 600 MG TABLET NG (09:19)
[2024-06-23] MEDS: PANTOPRAZOLE INJ 40 MG VIAL IVP (09:20)
[2024-06-23] MEDS: THIAMINE INJ 100 MG/ML VIAL 2 ML IV (09:20)
[2024-06-23 10:16] LABS: Base Excess, Venous 7 (-3-3); O2 Saturation, Venous 75 % (96-97); PCO2, Venous 41 mmHg (36-56); PO2, Venous 39 mmHg (15-58); pH, Venous 7.49 (7.33-7.66)
[2024-06-23 13:49] LABS: Thyroid Stimulating Hormone 3.24 uIU/mL (0.55-4.78)
[2024-06-23] MEDS: HYDROCORTISONE SOD SUCC INJ 100 MG VIAL IV ×2 (13:55→21:50)
[2024-06-23] MEDS: MIDODRINE 5 MG TABLET PO ×2 (13:55→21:50)
[2024-06-23] MEDS: SODIUM CHLORIDE 0.9% 500 ML 500 ML 999 ML IV ×2 (13:55→17:12)
[2024-06-23] MEDS: Norepinephrine/D5W 8mg/250ml 8 MG/250 ML BAG 12.893 MG IV (13:57)
--- NOTE | 2024-06-23 15:19 | PD.RESPRO ---
Documentation for date of: 06/23/24 Subjective Subjective Interval history: 54 Y/O F with PMHx significant for Downs Syndrome, Schizophrenia,blindness, IBS, presents with chief complaint of AMS, last known normal 9 pm last night. Patient in unable to provide history, history taken from caregiver at bedside. Patient has had cough for about five days, noted sore throat. Patient has had diarrhea for 3 days, which is not uncommon for patient due to IBS. Patient was last seen at 9 pm last night. This morning patient was found unresponsive in her bed by caregiver. Patient is brought to ED, patient found to have low GCS, hypoxia with O2 sat 60% on nonrebreather, blood pressure 84 over palp. Patient was started on pressors, intubated. Patient had CODE BLUE, with 1 dose of epi before ROSC. Patient ventilated, started on sedation with propofol. Patient given 7 to 50 mL normal saline bolus and Rocephin in the ED. Blood urine and sputum cultures taken. 06/19/2024: Patient seen and examined at bedside. Patient withdraws from pain, does not open eyes. Patient continues to have high levophed requirements to maintain MAP. Patient developed fever of 103.0 this morning. Emperic vancomycin was initiated, sputum culture and gram stain ordered. Patient remains on spontaneous pressure support, saturating well. In setting of high presser requirements, arterial line was ordered to verify accurate BP readings. Radial arteries were too small, so femoral arterial line was attempted. Right side arterial line attempt failed, with resulting hematoma covered with pressure dressing and demarcated after hemastasis was acheived. Left side attempt succeeded in placing line, but patient developed excessive bleeding around the catheter and a hematoma. After arterial line MAP read was verified to be 1 mmHg different than recycled cuff MAP, arterial line was removed. Pressure dressing applied and hematoma demarcated after hemastasis was achieved. Free water flushes initiated for hypernatremia. 06/20/2024: Patient seen and examined at bedside. Neuro status unchanged. Dopamine uptitrated to maintain heart rate, continues to require high levels of Levophed. Vasopressin added to maintain MAP. Patient heart rate and MAP improved with tactile stimulation. Patient continues to saturate well on pressure support with 40% FiO2. Hypernatremia resolved, decreasing free water flushes. Lasix held, ОЛЬГА resolving. Patient is increasing blood glucose, suspect secondary to steroids. Weaning down steroids. Hematomas is not expanding. 06/21/2024: Overnight, the cuff for ET tube became detached, requiring new ET tube to be placed, which occurred without incident. Patient seen and examined at bedside. Neuro status unchanged. Neuro consult placed for low density areas in both basal ganglia on head CT. Fludrocortisone initiated for adrenal insufficiency. 06/22/2024: Patient seen and examined at bedside. Patient more alert this morning, still very somnolent. EEG ordered. Changed pressor status: Dopamine set at 10, will titrate Levophed. Discussed with design printing machine set up operator regarding risks and benefits of extubation, design printing machine set up operator wishes to decide tomorrow after consulting with rest of family. Unasyn finished today. 06/23/2024: The patient was examined and evaluated at the bedside this morning. The patient seemed alert but is still somnolent. Patient is still on pressor support with Levophed, vasopressin and dopamine. Hb was 6.9 and was transfused 1 Unit PRBC. Electrolytes were significant for sodium of 125 and potassium of 3.0. We repleted potassium with 40 mEq KCl p.o. x 1. We added midodrine 5 Mg 3 times daily for the transition to oral pressor support. She was also a started on hydrocortisone 100 Mg 3 times daily, and we increased fludrocortisone to 0.2 Mg daily. Sertraline 100 Mg daily and risperidone 2 Mg twice daily was started. We will attempt for SAT and SBT. Goals of care discussion was done with the legal decision maker, who requested continuing aggressive medical management at this point. Exam Vital Signs Temp Pulse Resp BP Pulse Ox O2 Del Method FiO2 99.0 F 51 L 24 H 120/68 99 Mechanical Ventilation 30 06/23/24 15:10 06/23/24 15:10 06/23/24 15:10 06/23/24 15:10 06/23/24 15:10 06/23/24 13:00 06/23/24 14:02 Narrative Exam PE: Gen: Extremely cachexic. Intubated. HEENT: Dry mucous membranes. Left eye heavily scarred, right eye glassy. Scarring around nares. CVS: normal S1 and S2. No M/R/G. Sinus bradycardia. Resp: No rhonchi, rales, crackles or wheezing. Coarse lung sounds. Abd: soft, non-tender, non-distended. MSK: No edema. Multiple old scars/wounds on all extremities, patient has history of self-inflicted injuries, picking at skin. Hematoma at left/right inguinal folds, not expanding. Neuro: Somnolent, intermittent alertness. Objective Labs 07/04/24 05:02 07/04/24 05:02 Labs: Laboratory Results - last 24 hr 06/22/24 06/23/24 06/23/24 17:30 05:48 07:49 WBC 19.1 H RBC 2.01 L Hgb 6.9 L* Hct 19.9 L* MCV 99 MCH 34.3 MCHC 34.7 RDW Std Deviation 49.6 H Plt Count 237 D Neut % (Auto) 85 H Lymph % (Auto) 8 L [place] % (Auto) 2 Eos % (Auto) 0 Baso % (Auto) 0 Neut # (Auto) 16.3 H Lymph # (Auto) 1.6 [place] # (Auto) 0.4 Eos # (Auto) 0.1 Baso # (Auto) 0.0 Immature Gran # (Auto) 0.74 H Absolute Nucleated RBC 0.10 H Immature Gran % 4 H Nucleated RBC % 1 H VBG pH 7.46 VBG pCO2 43 VBG pO2 98 H VBG O2 Sat (George) 99 H VBG Base Excess 6 H Sodium 125 L Potassium 3.0 L D Chloride 88 L Carbon Dioxide 30.2 Anion Gap 7 BUN 9 Creatinine 0.4 L Estim Creat Clear Calc 52.7 L eGFR > 60 BUN/Creatinine Ratio 23 H Glucose 199 H D Calculated Osmolality 256 L Calcium 7.5 L Corrected Calcium 8.1 L Phosphorus 2.9 Magnesium 1.6 Total Bilirubin 0.4 AST 40 H ALT 75 H Alkaline Phosphatase 141 H Total Protein 6.0 Albumin 3.2 L Globulin 2.8 Albumin/Globulin Ratio 1.1 L TSH 3.24 Blood Type O Positive Antibody Screen NEGATIVE Crossmatch See Detail Blood Bank Wristband ID Yes 06/23/24 09:55 WBC RBC Hgb Hct MCV MCH MCHC RDW Std Deviation Plt Count Neut % (Auto) Lymph % (Auto) [place] % (Auto) Eos % (Auto) Baso % (Auto) Neut # (Auto) Lymph # (Auto) [place] # (Auto) Eos # (Auto) Baso # (Auto) Immature Gran # (Auto) Absolute Nucleated RBC Immature Gran % Nucleated RBC % VBG pH 7.49 VBG pCO2 41 VBG pO2 39 D VBG O2 Sat (George) 75 L VBG Base Excess 7 H Sodium Potassium Chloride Carbon Dioxide Anion Gap BUN Creatinine Estim Creat Clear Calc eGFR BUN/Creatinine Ratio Glucose Calculated Osmolality Calcium Corrected Calcium Phosphorus Magnesium Total Bilirubin AST ALT Alkaline Phosphatase Total Protein Albumin Globulin Albumin/Globulin Ratio TSH Blood Type Antibody Screen Crossmatch Blood Bank Wristband ID ABG Interpretation ABG results: 06/15/24 06/15/24 06/15/24 11:06 14:05 17:00 ABG pH 7.23 L 7.33 L D 7.34 L ABG pCO2 69 H 56 H D 57 H ABG pO2 153 H 67 L D 65 L ABG HCO3 29 H 29 H 30 H ABG O2 Saturation 99 H 92 91 ABG Base Excess 0 3 4 H VBG pH VBG pCO2 VBG pO2 VBG Base Excess 06/16/24 06/17/24 06/18/24 04:04 04:36 04:04 ABG pH 7.35 7.42 7.53 H D ABG pCO2 57 H 54 H 57 H ABG pO2 58 L* 77 L 73 L ABG HCO3 31 H 35 H 47 H ABG O2 Saturation 88 L 96 96 ABG Base Excess 5 H 9 H 22 H VBG pH VBG pCO2 VBG pO2 VBG Base Excess 06/19/24 06/22/24 06/23/24 04:12 17:30 09:55 ABG pH 7.54 H ABG pCO2 50 H ABG pO2 61 L ABG HCO3 42 H ABG O2 Saturation 93 ABG Base Excess 18 H VBG pH 7.46 7.49 VBG pCO2 43 41 VBG pO2 98 H 39 D VBG Base Excess 6 H 7 H Quality Measures Quality Measures VTE prophylaxis Assessment & Plan Assessment Current Active Medications: Generic Name Dose Route Start Last Admin Trade Name Freq PRN Reason Stop Dose Admin Acetaminophen 650 mg 06/15/24 13:50 Acetaminophen Supp 650 Mg Supp MD 07/15/24 13:49 Q4HR PRN PAIN SCALE 1-3 (mild Acetaminophen 650 mg 06/19/24 07:27 06/19/24 07:43 Acetaminophen Noreen 325 Mg/10 Ml Udc NG 07/19/24 07:26 650 mg Q4HR PRN Administration Pain Or Fever > 100.4 Protocol Al Hydrox/Mg Hydrox/Simethicone 30 ml 06/15/24 13:50 Mg Hyd/Al Hyd/[place] (Maalox Reg) Susp 30 Ml Udc NG 07/15/24 13:49 Q4HR PRN Heartburn or Upset Stomach Aspirin 81 mg 06/23/24 09:00 06/23/24 09:19 Aspirin 81 Mg Chew PO 07/23/24 08:59 81 mg QDAY LIZ Administration Atorvastatin Calcium 40 mg 06/21/24 21:00 06/22/24 21:34 Atorvastatin Calcium 20 Mg Tablet PO 07/21/24 20:59 40 mg HS LIZ Administration Calcium Carbonate 600 mg 06/23/24 09:00 06/23/24 09:19 Calcium Carbonate 600 Mg Tablet NG 07/23/24 08:59 600 mg QDAY LIZ Administration Fludrocortisone Acetate 0.2 mg 06/24/24 09:00 Fludrocortisone Acetate 0.1 Mg Tablet PO 07/24/24 08:59 QDAY LIZ Heparin Sodium (Porcine) 5,000 unit 06/15/24 14:00 06/19/24 14:14 Heparin Sod Inj 5000 Unit/Ml Vial SC 06/29/24 13:59 Not Given Q8HR LIZ Hydrocortisone Sodium Succinate 100 mg 06/23/24 11:15 06/23/24 13:55 Hydrocortisone Sod Succ Inj 100 Mg Vial IV 06/30/24 11:14 100 mg Q8HR LIZ Administration Furosemide 200 mg/ Sodium 100 mls @ 5 mls/hr 06/17/24 10:56 06/18/24 07:15 Chloride IV 07/17/24 10:55 0 mls/hr .Q20H LIZ Infusion Vasopressin/Sodium Chloride 20 unit in 100 mls @ 9 mls/hr 06/20/24 09:54 06/23/24 14:48 Vasostrict/Ns Ivpb IV 07/20/24 09:53 0.03 unit/min .Q11H7M PRN 9 mls/hr PER PROTOCOL Titration Protocol 0.03 UNIT/MIN Norepinephrine/Dextrose 8 mg in 250 mls @ 1.791 mls/hr 06/22/24 18:20 06/23/24 13:57 Levophed In D5w 8mg/250ml IV 07/15/24 22:03 0.36 mcg/kg/min .Q24H PRN 12.893 mls/hr PER PROTOCOL Administration Protocol 0.05 MCG/KG/MIN Dopamine HCl/Dextrose 400 mg in 250 mls @ 3.581 mls/hr 06/22/24 18:20 06/22/24 18:40 Intropin In D5w Ivpb IV 07/16/24 03:34 Not Given .Q24H LIZ Protocol 5 MCG/KG/MIN Influenza Virus Vaccine Quadrival 0.5 ml 06/29/24 09:00 Influenza Virus Quadrivalent 0.5 Ml Syringe IMi 06/29/24 09:01 .ONCE ONE Magnesium Hydroxide 30 ml 06/15/24 13:50 Milk Of Magnesia Susp 30 Ml Udc NG 07/15/24 13:49 QDAY PRN CONSTIPATION Midodrine 5 mg 06/23/24 14:00 06/23/24 13:55 Midodrine 5 Mg Tablet PO 07/23/24 13:59 5 mg TID LIZ Administration Multivitamins/Minerals 15 ml 06/19/24 15:15 06/23/24 09:19 Multivitamin 15 Ml Udc NG 07/19/24 15:14 15 ml QDAY LIZ Administration Pantoprazole Sodium 40 mg 06/16/24 09:00 06/23/24 09:20 Pantoprazole Inj 40 Mg Vial IVP 07/16/24 08:59 40 mg QDAY LIZ Administration Pharmacy Consult 1 each 06/15/24 18:27 Pharmacy To Consult Pneumovacc XX 07/15/24 18:26 PRN PRN CONSULT Pneumococcal Polyvalent Vaccine 0.5 ml 06/29/24 09:00 Pneumoc 20-Karen Conj-Dip Crm/Pf 0.5 Ml Syringe IMi 06/29/24 09:01 .ONCE ONE Potassium Phos/Sodium Phos 1 packet 06/21/24 11:45 06/23/24 09:19 [place],[facility] Mbdb 1 Packet (1.5 Gm) PO 07/21/24 11:44 1 packet BID LIZ Administration Risperidone 2 mg 06/23/24 15:30 Risperidone 1 Mg Tablet NG 07/23/24 15:29 QDAY LIZ Sertraline HCl 100 mg 06/23/24 15:30 Sertraline Hcl 25 Mg Tablet NG 07/23/24 15:29 QDAY LIZ Thiamine HCl 100 mg 06/19/24 15:15 06/23/24 09:20 Thiamine Inj 100 Mg/Ml Vial 2 Ml IV 07/19/24 15:14 100 mg QDAY LIZ Administration Plan 54 Y/O F with PMHx significant for Downs Syndrome, Schizophrenia,blindness, IBS, presents with chief complaint of AMS, last known normal 9 pm last night, admitted to ICU for septic shock requiring pressors and acute hypoxic respiratory failure requiring intubation. 06/23/2024: The patient was examined and evaluated at the bedside this morning. The patient seemed alert but is still somnolent. Patient is still on pressor support with Levophed, vasopressin and dopamine. Electrolytes were significant for sodium of 125 and potassium of 3.0. We repleted potassium with 40 mEq KCl p.o. x 1. We added midodrine 5 Mg 3 times daily for the transition to oral pressor support. She was also a started on hydrocortisone 100 Mg 3 times daily, and we increased fludrocortisone to 0.2 Mg daily. Sertraline 100 Mg daily and risperidone 2 Mg twice daily was started. We will attempt for SAT and SBT. Goals of care discussion was done with the legal decision maker, who requested continuing aggressive medical management at this point. Neuro: #Acute encephalopathy Multifactorial: Infection, metabolic abnormalities, hypoxia, shock, CVA Low density areas in both basal ganglia seen on head CT On Presidex tapering down, withdraws to pain -EEG ordered, follow-up -Treat underlying conditions -Neuro consult placed, follow up -Atorvastatin and aspirin -Hold plavix due to low hemoglobin, hematomas #Schizophrenia #Depression Patient is on home medication risperidone 4mg BID, Sertraline 100mg daily, Ziprasidone 60mg BID and zolpidem 10mg PO HS -Resumed risperidone 2mg twice daily and sertraline 100mg daily, we will increase the dose by tomorrow Cardio: #Shock DDx: Adrenal insufficiency complicated by hypovolemia Patient blood pressure was initially 84 by palpation. Patient requires extensive pressors, vasopressin and Levophed and high doses. Bedside echo showed good left ventricular contractility, no signs of right ventricular overload. Patient is dehydrated, has had diarrhea for the past 3 days. IVC on bedside echo was variable. Patient received 750 mL normal saline bolus and 1 L of lactated Ringer's bolus. Bedside echo showed IVC congestion, patient continues to require pressors. Patient received Albumin with Lasix drip. Patient HR and BP worsened once hydrocortisone decreased. -Titrate Levophed to maintain MAP greater than 60 -Dopamine set at 10 mcg/KG/MIN -Hydrocortisone 100mg IV TID -Fludracortisone increased to 0.2mg OG daily -500cc bolus NS given -Treat underlying conditions #Sinus bradycardia, resolving Patient developed sinus bradycardia, dropping to low 30's. EKG only showed sinus bradycardia. Patient started on dopamine drip, unable to be titrated off. Heart rate stable in high 40's. Patient maintaining heart rate around 50. Heart rate improves when patient receives tactile stimulation. Suspect due to adrenal insufficiency -Dopamine drip set at 10 mcg/KG/MIN -Fludracortisone -telemonitoring Pulm: #AHRF, resolved DDx: Community acquired pneumonia versus aspiration Patient presented saturation 60% on nonrebreather mask. Patient was intubated and ventilated. Initial ABG pH 7.23, pCO2 69, pO2 153. Patient had poor minutes in tidal ventilation, vent settings adjusted. Follow-up ABG improved: pH 7.34, pCO2 57, pO2 65. Chest x-ray showed left-sided consolidation. Patient has history of Down syndrome, risk for aspiration pneumonia. Bacterial and viral pneumonia both possible. Influenza panel negative. MRSA screen negative. Patient maintaining saturations on sspntaneous pressure support with 40% FiO2. Patient developed new fever of 103.0, resolved. Repeat sputum culture ordered. -Follow-up sputum culture -Zosyn (06/16-06/18) changed to Unasyn (06/18-06/22) -Vancomycin pharmacy dosing (started 06/19-06/23) GI: #Severe protein malnutrition Patient BMI 14.9. Patient unable to provide history, per caregiver patient has good oral intake most times, has been malnourished for years due to chronic diarrhea, has not had significant weight loss recently. Patient has very little muscle mass, temporal wasting, sunken eyes. -Dietary consult, appreciate recommendations -Thiamine and multivitamin supplements -Tube feeds, advanced -daily labs -Every 8 hours BMP, phosphorus, magnesium -aggressive monitoring/repleating of potassium, phosphorous, magnesium #IBS Patient history of IBS. Patient had diarrhea for 3 days prior to admission, not unusual for patient. Patient has been having regular bowel movements during hospital stay. -Monitor bowel movements -Treat metabolic abnormalities as needed #Tube feeds Trickle feeds initiated, advanced to goal rate of 35 ml/hr. Renal: #ОЛЬГА, resolved DDx: Prerenal due to dehydration versus ischemic ATN Patient presented with BUN 62, creatinine 2.6, eGFR 22. No previous labs to compare to. Patient has adequate urine output. Patient appears severely dehydrated exam, has received multiple boluses of fluid, on IVF. Patient was also severely hypotensive, requiring significant pressor support. Patient recieved albumin and lasix drip, lasix held next day Holding Lasix, renal function labs normalizing. Patient continues to have good urine output. -Monitor closely, maintain euvolemia -Monitor daily labs -Avoid nephrotoxins -Monitor urine output #Hypernatremia, resolved Likely due to severe dehydration. Sodium admission is 166. Patient received 150 mL bolus normal saline in the ED. Patient was then given 1 L bolus lactated Ringer's. #Hyponatremia: 2/2 excess free water in the setting of 250cc water flushes q8h -Decreased water flushes to 50cc Q*H Endo: #Adrenal insufficiency Suspect due to chronic malnutrition. Patient arrived with hypotension, hypernatremia. Patient has been hypokalemic despite repletion and bradycardic. Clinical improvement with hydrocortisone followed by worsening when dosage reduced. -Fludracortisone increased to 0.2mg OG daily -monitor sodium and potassium #Hyperglycemia Patient has mild hyperglycemia, trending up. No history of diabetes. Likely due to steroid treatment. Downtrending -Monitor Heme: #Hematomas Hematomas in bilateral inguinal folds as complications of attempted femoral arterial line placement. -pressure dressings -demarcations to monitor for expansion -hold DVT prophylaxis #Macrocytic anemia Patient hemoglobin 9.2, MCV 114. No previous labs to compare to. No obvious signs of acute bleeding. On 06/23: Hb 6.9, transfused 1 unit PRBC Folate and B12 not depleted. -Monitor #Leukocytosis Likely due to glucocorticosteroid. -Monitor ID: #Fever, resolved #UTI Patient urinalysis indicated UTI: Positive leukocyte esterase, rare bacteria, 36 WBCs. Cultures grew mckeon-sensitive E. Coli. -On Unasyn-completed #Pneumonia Patient in acute hypoxic respiratory failure, chest x-ray with left-sided consolidations. -On Unasyn (completed) Skin/MSK: #No active issues Lines: RIJ/PIV DVT prophylaxis: Held due to hematomas G.I prophylaxis: Pantoprazole Code: Full code The patient's management plan was discussed with my attending physician MD Otto Reeves MD, PGY2 Attending Provider Attestation/Addendum Patient seen and examined with above resident, Otto Brown MD. I agree with the findings, assessment, and plan of care as documented except for any differences below. Patient continues to slowly progress with additional adjustments and vasopressors to optimize for heart rate versus blood pressure. Patient maintained on midodrine and addition of hydrocortisone and fludrocortisone for suspected relative adrenal insufficiency secondary to Proteus calorie malnutrition. Home regimen for schizophrenia per resumed. Will slowly continue to wean mechanical ventilation at the times were daily SAT/SBT. Wean off sedation as tolerated to allow adequate time for clearance of drugs in order to give her the best chance for extubation. I suspect she has adequate gas exchange and pulmonary mechanics but for inability to communicate and follow commands consistently even in [place]ian for multiple team members will be a rate limiting step. Patient's caregiver was updated by residents and they would like to continue to pursue aggressive care. Total critical care time: I personally spent 35 minutes for review of physiologic parameters, directing plan of care throughout the day, and coordination of care with other specialist. This is exclusive of time spent teaching of staff or performing any separate billable procedures. Patient continues to require critical care services from septated/distributive shock and acute hypoxic respiratory failure secondary to aspiration pneumonia. Suspect component of adrenal insufficiency precluding her ability to be successfully weaned off vasopressors along with acute encephalopathy making it difficult to wean her from mechanical ventilation. Patient high risk for further morbidity and mortality warranting ongoing care and close monitoring in the intensive care unit.
[2024-06-23] MEDS: SERTRALINE HCL 25 MG TABLET 100 MG NG (15:37)
--- NOTE | 2024-06-23 15:41 | PC.SS ---
Update: Patient remains intubated. Plan is to possibly extubate patient tomorrow. Patient off sedation. Remains on pressor support. Feedings via OG tube.
--- NOTE | 2024-06-23 15:55 | PC.SS ---
PAYROLL SERVICES ANALYST attempted phone contact with Drea/Orlando Morales case monitorEstela . No response. PAYROLL SERVICES ANALYST left voicemail with contact information.
[2024-06-23] MEDS: risperiDONE 1 MG TABLET 2 MG NG (21:50)
[2024-06-23] MEDS: ATORVASTATIN CALCIUM 20 MG TABLET 40 MG PO (21:50)
[2024-06-23] MEDS: DOPamine/D5w 400 MG IVPB 400 MG/250 ML BAG 7.163 MG IV (21:52)
[2024-06-23 22:19] LABS: Vancomycin,Trough 7.8 mcg/mL (5.0-10.0)
--- NOTE | 2024-06-23 23:21 | PD.NEUROCONS ---
History of Present Illness Data of Consult Requesting Physician: Prateek Topete MD Primary Care Provider: Jayce Muñiz MD Consult Narrative cc:: cc: Prateek Topete MD Meds Home Medications and Allergies Home Medications ?Medication ?Instructions ?Recorded ?Confirmed ?Type gemfibrozil 600 mg tablet 600 mg PO BID 06/16/24 06/16/24 History risperidone 4 mg tablet 4 mg PO BID 06/16/24 06/16/24 History sertraline 100 mg tablet 100 mg PO QDAY 06/16/24 06/16/24 History ziprasidone HCl 60 mg capsule 60 mg PO BID 06/16/24 06/16/24 History zolpidem 10 mg tablet 10 mg PO HS 06/16/24 06/16/24 History Allergies Allergy/AdvReac Type Severity Reaction Status Date / Time No Known Allergies Allergy Unverified 06/15/24 10:42 Procedures Arterial Line Size (Gauge): 20 Exam - Neurology Vital Signs Temp Pulse Resp BP Pulse Ox O2 Del Method FiO2 99.3 F 50 L 20 93/53 L 98 Mechanical Ventilation 21 06/23/24 21:30 06/23/24 23:15 06/23/24 18:06 06/23/24 23:15 06/23/24 23:15 06/23/24 21:30 06/23/24 23:15 Results Labs 06/23/24 05:48 06/23/24 05:48 Labs: Short CBC 06/23/24 Range/Units 05:48 WBC 19.1 H (3.6-11.0) Thou/mm3 Hgb 6.9 L* (12.0-16.0) g/dL Hct 19.9 L* (36.0-46.0) % Plt Count 237 D (140-440) Thou/mm3 BMP 06/23/24 05:48 Sodium 125 L Potassium 3.0 L D Chloride 88 L Carbon Dioxide 30.2 BUN 9 Creatinine 0.4 L Glucose 199 H D Calcium 7.5 L Liver Function 06/23/24 Range/Units 05:48 Total Bilirubin 0.4 (0.3-1.2) mg/dL AST 40 H (0-34) U/L ALT 75 H (10-49) U/L Alkaline Phosphatase 141 H (46-116) U/L Albumin 3.2 L (3.5-5.0) gm/dL ABG Interpretation ABG results: 06/15/24 06/15/24 06/15/24 11:06 14:05 17:00 ABG pH 7.23 L 7.33 L D 7.34 L ABG pCO2 69 H 56 H D 57 H ABG pO2 153 H 67 L D 65 L ABG HCO3 29 H 29 H 30 H ABG O2 Saturation 99 H 92 91 ABG Base Excess 0 3 4 H VBG pH VBG pCO2 VBG pO2 VBG Base Excess 06/16/24 06/17/24 06/18/24 04:04 04:36 04:04 ABG pH 7.35 7.42 7.53 H D ABG pCO2 57 H 54 H 57 H ABG pO2 58 L* 77 L 73 L ABG HCO3 31 H 35 H 47 H ABG O2 Saturation 88 L 96 96 ABG Base Excess 5 H 9 H 22 H VBG pH VBG pCO2 VBG pO2 VBG Base Excess 06/19/24 06/22/24 06/23/24 04:12 17:30 09:55 ABG pH 7.54 H ABG pCO2 50 H ABG pO2 61 L ABG HCO3 42 H ABG O2 Saturation 93 ABG Base Excess 18 H VBG pH 7.46 7.49 VBG pCO2 43 41 VBG pO2 98 H 39 D VBG Base Excess 6 H 7 H
[2024-06-24] VITALS (104 sets, daily range): BP systolic 72–137; BP diastolic 44–81; PULSE 42–81; RESP 12–35; TEMP 36.4–37.3; O2SAT 82–100
[2024-06-24 06:14] LABS: Basophils % (Auto) 0 % (0-2.5); Eosinophils % (Auto) 0 % (0-10); Immature Granulocytes % (Auto) 2 % (0-0); Immature Granulocytes Auto 0.35 Thou/mm3 (0.00-0.00); Lymphocytes # (Auto) 0.6 Thou/mm3 (1.0-4.8); Lymphocytes % (Auto) 3 % (10-50); Mean Corpuscular HGB Conc 35.6 g/dl (31.0-37.0); Mean Corpuscular Hemoglobin 33.3 pg (25.0-35.0); Mean Corpuscular Volume 94 fL (80-100); Monocytes # (Auto) 0.2 Thou/mm3 (0.0-0.8); Monocytes % (Auto) 1 % (0-12); Neutrophils # (Auto) 16.2 Thou/mm3 (1.8-7.7); Neutrophils % (Auto) 93 % (37-80); Nucleated Red Blood Cell # 0.02 Thou/mm3 (0.00-0.00); Nucleated Red Blood Cell % 0 /100 WBC (0); Platelet Count 230 Thou/mm3 (140-440); RDW Standard Deviation 56.6 fL (36.4-46.3); Red Blood Count 2.34 Miln/mm3 (4.00-5.20); White Blood Count 17.4 Thou/mm3 (3.6-11.0)
[2024-06-24] MEDS: VASOPRESSIN IN NS IVPB 20 UNIT/100 ML BAG 9 UNIT IV ×2 (06:14→16:42)
[2024-06-24] MEDS: MIDODRINE 5 MG TABLET PO ×2 (06:14→21:32)
[2024-06-24] MEDS: HYDROCORTISONE SOD SUCC INJ 100 MG VIAL IV ×3 (06:14→21:32)
[2024-06-24 06:15] LABS: Hemoglobin 7.8 g/dL (12.0-16.0)
[2024-06-24] MEDS: Norepinephrine/D5W 8mg/250ml 8 MG/250 ML BAG 2.865 MG IV (06:15)
[2024-06-24 06:16] LABS: Hematocrit 21.9 % (36.0-46.0)
[2024-06-24 06:47] LABS: Alanine Aminotransferase 86 U/L (10-49); Albumin, Serum 2.9 gm/dL (3.5-5.0); Albumin/Globulin Ratio 1.1 (1.2-2.2); Alkaline Phosphatase 127 U/L (46-116); Anion Gap 8 (7-16); Aspartate Amino Transferase 55 U/L (0-34); BUN/Creatinine Ratio 23 Ratio (12-20); Bilirubin,Total 0.3 mg/dL (0.3-1.2); Blood Urea Nitrogen 9 mg/dL (9-23); Calcium 7.4 mg/dL (8.3-10.6); Calcium (Corrected) 8.3 mg/dL (8.5-10.1); Carbon Dioxide 26.9 mMol/L (20.0-31.0); Chloride 89 mMol/L (98-107); Creatinine (Component) 0.4 mg/dL (0.6-1.3); Estimated Creatinine Clearance 52.7 mL/min (>60); Globulin 2.6 gm/dL (2.3-3.5); Glucose 293 mg/dL (74-106); Magnesium 1.7 mg/dL (1.6-2.6); Osmolality,Calculated 259 (275-295); Phosphorous 2.5 mg/dL (2.4-5.1); Potassium 3.4 mMol/L (3.4-5.1); Sodium 124 mMol/L (136-145); Total Protein 5.5 gm/dL (5.7-8.2); eGFR > 60 See Note
[2024-06-24] MEDS: POTASSIUM CHLORIDE 10% 20 MEQ/15 ML UDC 40 MEQ GT (07:50)
[2024-06-24] MEDS: Magnesium Sulfate 2 GM Ivpb 2 GM/50 ML BAG IV (07:50)
[2024-06-24] MEDS: CALCIUM CARBONATE 600 MG TABLET NG (08:45)
[2024-06-24] MEDS: SERTRALINE HCL 25 MG TABLET 100 MG NG (08:45)
[2024-06-24] MEDS: FERROUS SULF 325 MG TABLET PO (08:45)
[2024-06-24] MEDS: NAPH,KPH MBDB 1 PACKET (1.5 GM) 2 PACKET PO ×2 (08:45→21:32)
[2024-06-24] MEDS: MULTIVITAMIN 15 ML UDC NG (08:45)
[2024-06-24] MEDS: PANTOPRAZOLE INJ 40 MG VIAL IVP (08:45)
[2024-06-24] MEDS: risperiDONE 1 MG TABLET 2 MG NG ×2 (08:45→21:32)
[2024-06-24] MEDS: THIAMINE INJ 100 MG/ML VIAL 2 ML IV (08:46)
[2024-06-24] MEDS: ASPIRIN 81 MG CHEW PO (08:46)
[2024-06-24] MEDS: FLUDROCORTISONE ACETATE 0.1 MG TABLET 0.2 MG PO (08:49)
--- NOTE | 2024-06-24 10:42 | PC.RT ---
pt switched to PS at 10:26 11/03
--- NOTE | 2024-06-24 13:41 | ESPR_ITS ---
Documentation for date of: 06/24/24 Subjective Subjective Interval history: 54 Y/O F with PMHx significant for Downs Syndrome, Schizophrenia,blindness, IBS, presents with chief complaint of AMS, last known normal 9 pm last night. Patient in unable to provide history, history taken from caregiver at bedside. Patient has had cough for about five days, noted sore throat. Patient has had diarrhea for 3 days, which is not uncommon for patient due to IBS. Patient was last seen at 9 pm last night. This morning patient was found unresponsive in her bed by caregiver. Patient is brought to ED, patient found to have low GCS, hypoxia with O2 sat 60% on nonrebreather, blood pressure 84 over palp. Patient was started on pressors, intubated. Patient had CODE BLUE, with 1 dose of epi before ROSC. Patient ventilated, started on sedation with propofol. Patient given 7 to 50 mL normal saline bolus and Rocephin in the ED. Blood urine and sputum cultures taken. 06/20/2024: Patient seen and examined at bedside. Neuro status unchanged. Dopamine uptitrated to maintain heart rate, continues to require high levels of Levophed. Vasopressin added to maintain MAP. Patient heart rate and MAP improved with tactile stimulation. Patient continues to saturate well on pressure support with 40% FiO2. Hypernatremia resolved, decreasing free water flushes. Lasix held, ОЛЬГА resolving. Patient is increasing blood glucose, suspect secondary to steroids. Weaning down steroids. Hematomas is not expanding. 06/21/2024: Overnight, the cuff for ET tube became detached, requiring new ET tube to be placed, which occurred without incident. Patient seen and examined at bedside. Neuro status unchanged. Neuro consult placed for low density areas in both basal ganglia on head CT. Fludrocortisone initiated for adrenal insufficiency. 06/22/2024: Patient seen and examined at bedside. Patient more alert this morning, still very somnolent. EEG ordered. Changed pressor status: Dopamine set at 10, will titrate Levophed. Discussed with sonar watchstander regarding risks and benefits of extubation, sonar watchstander wishes to decide tomorrow after consulting with rest of family. Unasyn finished today. 06/23/2024: The patient was examined and evaluated at the bedside this morning. The patient seemed alert but is still somnolent. Patient is still on pressor support with Levophed, vasopressin and dopamine. Hb was 6.9 and was transfused 1 Unit PRBC. Electrolytes were significant for sodium of 125 and potassium of 3.0. We repleted potassium with 40 mEq KCl p.o. x 1. We added midodrine 5 Mg 3 times daily for the transition to oral pressor support. She was also a started on hydrocortisone 100 Mg 3 times daily, and we increased fludrocortisone to 0.2 Mg daily. Sertraline 100 Mg daily and risperidone 2 Mg twice daily was started. We will attempt for SAT and SBT. Goals of care discussion was done with the legal decision maker, who requested continuing aggressive medical management at this point. 06/24/2024: The patient was examined and evaluated at the bedside this morning. The patient seemed more alert today. Patient was on pressor support with Levophed 0.08, vasopressin 0.03 and dopamine 10, breathing spontaneously on mechanical ventilation with pressure support. White count trended down to 17.4, hemoglobin 7.8, sodium stable at 124, potassium 3.4, calcium 8.3, magnesium 1.7 and we repleted magnesium 2 g IV, started on calcium carbonate 600 Mg daily, blood sugar 293, started the patient on SSI sensitive scale. 40 mEq of KCl was repleted. The phosphorus was 2.5, and we increased the dose of Neutra-Phos to 2 packs twice daily. The patient was successfully extubated to oxy mask. Discussion regarding the decision maker was done by me with patient's sister Annamarie Wilson in the presence of SRIKANTH Julian. Patient's Sister Annamarie Wilson verbally stated that Ayala Putnam, who has been the sonar watchstander of the patient would be the decision maker for the patient for medical management and CODE STATUS changes. Exam Vital Signs Temp Pulse Resp BP Pulse Ox O2 Del Method FiO2 98.8 F 68 20 89/52 L 92 L Mechanical Ventilation 06/24/24 08:00 06/24/24 11:00 06/23/24 18:06 06/24/24 11:00 06/24/24 11:00 06/24/24 08:00 06/24/24 10:20 Narrative Exam PE: Gen: Extremely cachexic. On Oxy mask HEENT: moist mucous membranes. Left eye heavily scarred, right eye glassy. Scarring around nares. CVS: normal S1 and S2. No M/R/G. Sinus bradycardia. Resp: No rhonchi, rales, crackles or wheezing. Coarse lung sounds. Abd: soft, non-tender, non-distended. MSK: No edema. Multiple old scars/wounds on all extremities, patient has history of self-inflicted injuries, picking at skin. Hematoma at left/right inguinal folds, not expanding. Neuro: alert Objective Labs 07/04/24 05:02 07/04/24 05:02 Labs: Laboratory Results - last 24 hr 06/23/24 06/23/24 06/24/24 07:49 21:03 05:24 WBC 17.4 H RBC 2.34 L Hgb 7.8 L Hct 21.9 L* MCV 94 MCH 33.3 MCHC 35.6 RDW Std Deviation 56.6 H Plt Count 230 Neut % (Auto) 93 H Lymph % (Auto) 3 L Rankin % (Auto) 1 Eos % (Auto) 0 Baso % (Auto) 0 Neut # (Auto) 16.2 H Lymph # (Auto) 0.6 L Rankin # (Auto) 0.2 Eos # (Auto) 0.0 Baso # (Auto) 0.0 Immature Gran # (Auto) 0.35 H Absolute Nucleated RBC 0.02 H Immature Gran % 2 H Nucleated RBC % 0 Sodium 124 L Potassium 3.4 Chloride 89 L Carbon Dioxide 26.9 Anion Gap 8 BUN 9 Creatinine 0.4 L Estim Creat Clear Calc 52.7 L eGFR > 60 BUN/Creatinine Ratio 23 H Glucose 293 H D Calculated Osmolality 259 L Calcium 7.4 L Corrected Calcium 8.3 L Phosphorus 2.5 Magnesium 1.7 Total Bilirubin 0.3 AST 55 H ALT 86 H Alkaline Phosphatase 127 H Total Protein 5.5 L Albumin 2.9 L Globulin 2.6 Albumin/Globulin Ratio 1.1 L TSH 3.24 Vancomycin Trough 7.8 Blood Type O Positive Antibody Screen NEGATIVE Crossmatch See Detail Blood Bank Wristband ID Yes ABG Interpretation ABG results: 06/15/24 06/15/24 06/15/24 11:06 14:05 17:00 ABG pH 7.23 L 7.33 L D 7.34 L ABG pCO2 69 H 56 H D 57 H ABG pO2 153 H 67 L D 65 L ABG HCO3 29 H 29 H 30 H ABG O2 Saturation 99 H 92 91 ABG Base Excess 0 3 4 H VBG pH VBG pCO2 VBG pO2 VBG Base Excess 06/16/24 06/17/24 06/18/24 04:04 04:36 04:04 ABG pH 7.35 7.42 7.53 H D ABG pCO2 57 H 54 H 57 H ABG pO2 58 L* 77 L 73 L ABG HCO3 31 H 35 H 47 H ABG O2 Saturation 88 L 96 96 ABG Base Excess 5 H 9 H 22 H VBG pH VBG pCO2 VBG pO2 VBG Base Excess 06/19/24 06/22/24 06/23/24 04:12 17:30 09:55 ABG pH 7.54 H ABG pCO2 50 H ABG pO2 61 L ABG HCO3 42 H ABG O2 Saturation 93 ABG Base Excess 18 H VBG pH 7.46 7.49 VBG pCO2 43 41 VBG pO2 98 H 39 D VBG Base Excess 6 H 7 H Quality Measures Quality Measures VTE prophylaxis Assessment & Plan Assessment Current Active Medications: Generic Name Dose Route Start Last Admin Trade Name Freq PRN Reason Stop Dose Admin Acetaminophen 650 mg 06/15/24 13:50 Acetaminophen Supp 650 Mg Supp CO 07/15/24 13:49 Q4HR PRN PAIN SCALE 1-3 (mild Acetaminophen 650 mg 06/19/24 07:27 06/19/24 07:43 Acetaminophen Noreen 325 Mg/10 Ml Udc NG 07/19/24 07:26 650 mg Q4HR PRN Administration Pain Or Fever > 100.4 Protocol Al Hydrox/Mg Hydrox/Simethicone 30 ml 06/15/24 13:50 Mg Hyd/Al Hyd/[place] (Maalox Reg) Susp 30 Ml Udc NG 07/15/24 13:49 Q4HR PRN Heartburn or Upset Stomach Aspirin 81 mg 06/23/24 09:00 06/24/24 08:46 Aspirin 81 Mg Chew PO 07/23/24 08:59 81 mg QDAY LIZ Administration Atorvastatin Calcium 40 mg 06/21/24 21:00 06/23/24 21:50 Atorvastatin Calcium 20 Mg Tablet PO 07/21/24 20:59 40 mg HS LIZ Administration Calcium Carbonate 600 mg 06/23/24 09:00 06/24/24 08:45 Calcium Carbonate 600 Mg Tablet NG 07/23/24 08:59 600 mg QDAY LIZ Administration Ferrous Sulfate 325 mg 06/24/24 09:00 06/24/24 08:45 Ferrous Sulf 325 Mg Tablet PO 07/24/24 08:59 325 mg QDAY LIZ Administration Fludrocortisone Acetate 0.2 mg 06/24/24 09:00 06/24/24 08:49 Fludrocortisone Acetate 0.1 Mg Tablet PO 07/24/24 08:59 0.2 mg QDAY LIZ Administration Heparin Sodium (Porcine) 5,000 unit 06/15/24 14:00 06/19/24 14:14 Heparin Sod Inj 5000 Unit/Ml Vial SC 06/29/24 13:59 Not Given Q8HR LIZ Hydrocortisone Sodium Succinate 100 mg 06/23/24 11:15 06/24/24 06:14 Hydrocortisone Sod Succ Inj 100 Mg Vial IV 06/30/24 11:14 100 mg Q8HR LIZ Administration Furosemide 200 mg/ Sodium 100 mls @ 5 mls/hr 06/17/24 10:56 06/18/24 07:15 Chloride IV 07/17/24 10:55 0 mls/hr .Q20H LIZ Infusion Vasopressin/Sodium Chloride 20 unit in 100 mls @ 9 mls/hr 06/20/24 09:54 06/24/24 06:14 Vasostrict/Ns Ivpb IV 07/20/24 09:53 0.03 unit/min .Q11H7M PRN 9 mls/hr PER PROTOCOL Administration Protocol 0.03 UNIT/MIN Norepinephrine/Dextrose 8 mg in 250 mls @ 1.791 mls/hr 06/22/24 18:20 06/24/24 09:00 Levophed In D5w 8mg/250ml IV 07/15/24 22:03 0.08 mcg/kg/min .Q24H PRN 2.865 mls/hr PER PROTOCOL Titration Protocol 0.05 MCG/KG/MIN Dopamine HCl/Dextrose 400 mg in 250 mls @ 7.163 mls/hr 06/23/24 19:12 06/24/24 09:00 Intropin In D5w Ivpb IV 07/23/24 19:11 10 mcg/kg/min .Q24H LIZ 7.163 mls/hr Titration Protocol 10 MCG/KG/MIN Influenza Virus Vaccine Quadrival 0.5 ml 06/29/24 09:00 Influenza Virus Quadrivalent 0.5 Ml Syringe IMi 06/29/24 09:01 .ONCE ONE Magnesium Hydroxide 30 ml 06/15/24 13:50 Milk Of Magnesia Susp 30 Ml Udc NG 07/15/24 13:49 QDAY PRN CONSTIPATION Midodrine 5 mg 06/23/24 14:00 06/24/24 06:14 Midodrine 5 Mg Tablet PO 07/23/24 13:59 5 mg TID LIZ Administration Multivitamins/Minerals 15 ml 06/19/24 15:15 06/24/24 08:45 Multivitamin 15 Ml Udc NG 07/19/24 15:14 15 ml QDAY LIZ Administration Pantoprazole Sodium 40 mg 06/16/24 09:00 06/24/24 08:45 Pantoprazole Inj 40 Mg Vial IVP 07/16/24 08:59 40 mg QDAY LIZ Administration Pharmacy Consult 1 each 06/15/24 18:27 Pharmacy To Consult Pneumovacc XX 07/15/24 18:26 PRN PRN CONSULT Pneumococcal Polyvalent Vaccine 0.5 ml 06/29/24 09:00 Pneumoc 20-Karen Conj-Dip Crm/Pf 0.5 Ml Syringe IMi 06/29/24 09:01 .ONCE ONE Potassium Phos/Sodium Phos 2 packet 06/24/24 09:00 06/24/24 08:45 [place] 1 Packet (1.5 Gm) PO 06/26/24 08:59 2 packet BID LIZ Administration Risperidone 2 mg 06/23/24 21:00 06/24/24 08:45 Risperidone 1 Mg Tablet NG 07/23/24 20:59 2 mg BID LIZ Administration Sertraline HCl 100 mg 06/23/24 15:30 06/24/24 08:45 Sertraline Hcl 25 Mg Tablet NG 07/23/24 15:29 100 mg QDAY ILZ Administration Thiamine HCl 100 mg 06/19/24 15:15 06/24/24 08:46 Thiamine Inj 100 Mg/Ml Vial 2 Ml IV 07/19/24 15:14 100 mg QDAY LIZ Administration Plan 54 Y/O F with PMHx significant for Downs Syndrome, Schizophrenia,blindness, IBS, presents with chief complaint of AMS, last known normal 9 pm last night, admitted to ICU for septic shock requiring pressors and acute hypoxic respiratory failure requiring intubation. 06/24/2024: The patient was examined and evaluated at the bedside this morning. The patient seemed more alert today. Patient was on pressor support with Levophed 0.08, vasopressin 0.03 and dopamine 10, breathing spontaneously on mechanical ventilation with pressure support. White count trended down to 17.4, hemoglobin 7.8, sodium stable at 124, potassium 3.4, calcium 8.3, magnesium 1.7 and we repleted magnesium 2 g IV, started on calcium carbonate 600 Mg daily, blood sugar 293, started the patient on SSI sensitive scale. 40 mEq of KCl was repleted. The phosphorus was 2.5, and we increased the dose of Neutra-Phos to 2 packs twice daily. The patient was successfully extubated to oxy mask. Discussion regarding the decision maker was done by me with patient's sister Annamarie Wilson in the presence of SRIKANTH Julian. Sister Annamarie Wilson verbally stated that Ayala Indy, who has been the sonar watchstander of the patient would be the decision maker for the patient for medical management and CODE STATUS. Neuro: #Acute encephalopathy, improving Multifactorial: hypoxia, S/p shock Low density areas in both basal ganglia seen on head CT On Presidex tapering down, withdraws to pain -EEG ordered, was significant for anoxic brain injury -Treat underlying conditions -Neuro consult placed, follow up -Atorvastatin and aspirin -Hold plavix due to low hemoglobin, hematomas #Schizophrenia #Depression Patient is on home medication risperidone 4mg BID, Sertraline 100mg daily, Ziprasidone 60mg BID and zolpidem 10mg PO HS -Resumed sertraline 100mg daily, we will resume other home medications by tomorrow Cardio: #Shock Multifactorial: #Adrenal insufficiency complicated by hypovolemia Patient blood pressure was initially 84 by palpation. Patient requires extensive pressors, vasopressin and Levophed and high doses. Bedside echo showed good left ventricular contractility, no signs of right ventricular overload. Patient is dehydrated, has had diarrhea for the past 3 days. IVC on bedside echo was variable. Patient received 750 mL normal saline bolus and 1 L of lactated Ringer's bolus. Bedside echo showed IVC congestion, patient continues to require pressors. Patient received Albumin with Lasix drip. Patient HR and BP worsened once hydrocortisone decreased. -Titrate Levophed to maintain MAP greater than 60 -Dopamine set at 10 mcg/KG/MIN -Hydrocortisone 100mg IV TID -Fludracortisone 0.2mg OG daily -adequate nutrition -Treat underlying conditions #Sinus bradycardia, resolving Likely secondary to adrenal insufficiency Patient developed sinus bradycardia, dropping to low 30's. EKG only showed sinus bradycardia. Patient started on dopamine drip, unable to be titrated off. Heart rate stable in high 40's. Patient maintaining heart rate around 50. Heart rate improves when patient receives tactile stimulation. -Dopamine drip set at 10 mcg/KG/MIN -Fludracortisone -telemonitoring Pulm: #AHRF DDx: Community acquired pneumonia versus aspiration Patient presented saturation 60% on nonrebreather mask. Patient was intubated and ventilated. Initial ABG pH 7.23, pCO2 69, pO2 153. Patient had poor minutes in tidal ventilation, vent settings adjusted. Follow-up ABG improved: pH 7.34, pCO2 57, pO2 65. Chest x-ray showed left-sided consolidation. Patient has history of Down syndrome, risk for aspiration pneumonia. Bacterial and viral pneumonia both possible. Influenza panel negative. MRSA screen negative. Patient maintaining saturations on sspntaneous pressure support with 40% FiO2. Patient developed new fever of 103.0, resolved. Repeat sputum culture ordered. -Follow-up sputum culture -Zosyn (06/16-06/18) changed to Unasyn (06/18-06/22) -Vancomycin pharmacy dosing (started 06/19-06/23) -Successfully extubated on 06/24/24 GI: #Severe protein malnutrition Patient BMI 14.9. Patient unable to provide history, per caregiver patient has good oral intake most times, has been malnourished for years due to chronic diarrhea, has not had significant weight loss recently. Patient has very little muscle mass, temporal wasting, sunken eyes. -Dietary consult, appreciate recommendations -Thiamine and multivitamin supplements -Tube feeds, advanced -daily labs -Every 8 hours BMP, phosphorus, magnesium -aggressive monitoring/repleating of potassium, phosphorous, magnesium #IBS Patient history of IBS. Patient had diarrhea for 3 days prior to admission, not unusual for patient. Patient has been having regular bowel movements during hospital stay. -Monitor bowel movements -Treat metabolic abnormalities as needed #Tube feeds Trickle feeds initiated, advanced to goal rate of 35 ml/hr. Renal: #ОЛЬГА, resolved DDx: Prerenal due to dehydration versus ischemic ATN Patient presented with BUN 62, creatinine 2.6, eGFR 22. No previous labs to compare to. Patient has adequate urine output. Patient appears severely dehydrated exam, has received multiple boluses of fluid, on IVF. Patient was also severely hypotensive, requiring significant pressor support. Patient recieved albumin and lasix drip, lasix held next day Holding Lasix, renal function labs normalizing. Patient continues to have good urine output. -Monitor closely, maintain euvolemia -Monitor daily labs -Avoid nephrotoxins -Monitor urine output #Hypernatremia, resolved Likely due to severe dehydration. Sodium admission is 166. Patient received 150 mL bolus normal saline in the ED. Patient was then given 1 L bolus lactated Ringer's. #Hyponatremia: 2/2 excess free water in the setting of 250cc water flushes q8h -Decreased water flushes to 50cc Q8H Endo: #Adrenal insufficiency Suspect due to chronic malnutrition. Patient arrived with hypotension, hypernatremia. Patient has been hypokalemic despite repletion and bradycardic. Clinical improvement with hydrocortisone followed by worsening when dosage reduced. -Fludracortisone increased to 0.2mg OG daily -monitor sodium and potassium #Hyperglycemia Patient has mild hyperglycemia, trending up. No history of diabetes. Likely due to steroid treatment. -Started on SSI lispro q6h -Monitor Heme: #Hematomas Hematomas in bilateral inguinal folds as complications of attempted femoral arterial line placement. -pressure dressings -demarcations to monitor for expansion -hold DVT prophylaxis #Macrocytic anemia Patient hemoglobin 9.2, MCV 114. No previous labs to compare to. No obvious signs of acute bleeding. On 06/23: Hb 6.9, transfused 1 unit PRBC Folate and B12 not depleted. -Monitor #Leukocytosis Likely due to glucocorticosteroid. -Monitor ID: #Fever, resolved #UTI Patient urinalysis indicated UTI: Positive leukocyte esterase, rare bacteria, 36 WBCs. Cultures grew mckeon-sensitive E. Coli. -On Unasyn-completed #Pneumonia Patient in acute hypoxic respiratory failure, chest x-ray with left-sided consolidations. -On Unasyn (completed) Skin/MSK: #No active issues Lines: RIJ/PIV DVT prophylaxis: Held due to hematomas G.I prophylaxis: Pantoprazole Code: Full code The patient's management plan was discussed with my attending physician MD Otto Reeves MD, PGY2 Attending Provider Attestation/Addendum Patient seen and examined with above resident, Otto Mclaughlin MD. I agree with the findings, assessment, and plan of care as documented except for any differences below. Patient underwent SBT earlier this morning and tolerated well. Notably, output from ET tube had significantly reduced in the last 24 to 48 hours. Low-dose vasopressor support required and fixed rate of dopamine maintained plan to slowly evening coming days. This is mostly for inotropic and chronotropic support. Patient appropriately on fludrocortisone and will wean off hydrocortisone as tolerated along with midodrine. Patient with downtrending WBC count and electrolyte replacement completed along with appropriate control of blood sugar which remains elevated at this point. Plan in regards to potential failure from extubation was discussed with family and caregiver in agreement for reintubation should she fail. She has completed course of Unasyn. Continue to monitor closely in the ICU postextubation for airway. Patient notably was asking for tacos and cough this afternoon and discussion with her family members. We have had adequate time off of sedation. Will continue to patient on n.p.o. status despite having enteral access. Reassess ability for swallow evaluation tomorrow before initiation of any meals. Total critical care time: I personally spent 35 minutes for review of physiologic parameters, directing plan of care throughout the day, and counseling patient's family at bedside. This is exclusive of time spent teaching of staff or performing any separate billable procedures. Patient continues to require critical care services for septic shock secondary to aspiration pneumonia and acute hypoxic respiratory failure on mechanical ventilation. She remains at high risk for increased morbidity and mortality warranting close monitoring and care will be available in the intensive care unit.
--- NOTE | 2024-06-24 18:41 | PC.NURSE ---
I had a conversation with patient's sister regarding patients decision maker and legal guardian. Per Mary Beth she stated that all decisions are made by Ayala, which is the non family caregiver. Pt sister agreed that consents and any other care will go through Ismael.
--- NOTE | 2024-06-24 20:09 | XR_ITS ---
Examination: AP chest single view Technique one AP portable semiupright chest single view Exam date and time: June 24, 2024 2017 hrs. Indications: Post orogastric tube placement Findings: Orogastric tube coiled in the stomach Right internal jugular central line tip SVC satisfactory position Enlarged cardiac contour with vascular congestion Perihilar edema and pneumonia Impression: Orogastric tube in the stomach satisfactory position
--- NOTE | 2024-06-24 21:26 | PC.NURSE ---
NGT PLACEMENT VERIFIED MY DR. VAUGHN. MARICRUZ TO USE FOR MEDS.
[2024-06-24] MEDS: ATORVASTATIN CALCIUM 20 MG TABLET 40 MG PO (21:32)
--- NOTE | 2024-06-24 23:05 | PC.NURSE ---
MARIELY, RT AT BEDSIDE, MANUALLY ASSISTING WITH OXYGENATION WITH AMBU BAG ON 15L. PT RESPONSIVE WITH STERNAL RUB, OPENS EYES, MOVING BILATERAL UE. CXR OBTAINED. HFNC ATTEMPTING ON 40L, 100%. DR. VAUGHN AT BEDSIDE WITH ORDERS TO REMOVE NGT. NGT REMOVED BY MYSELF.PATIENT NOW ON BIPAP AT 100%, 10/5. OXYGEN SATS AT 92%.
--- NOTE | 2024-06-24 23:10 | XR_ITS ---
Examination: AP chest single view Technique: AP portable semiupright chest single view Exam date and time: June 24, 2024 1127 hrs. Comparison June 24, 2024 11:27 PM Indications: Coughing aspiration pneumonia today Findings: Moderate enlargement cardiac contour Prominent vascular congestion More pronounced opacity left base consistent with pneumonia Film is rotated LPO Right internal jugular central line tip SVC Orogastric tube in the stomach Impression: Moderate heart failure Worsening pneumonia left base, consider aspiration pneumonia
--- NOTE | 2024-06-24 23:45 | PC.NURSE ---
Addendum entered by Jane Lema RN 06/24/24 23:47: LATE ENTRY: 06/24/24 [id number] Original Note: OXYGEN SATS AT 91%. PT PLACED ON OXYMASK AT 15L. DR. VAUGHN MADE AWARE. ORDERS FOR HOLD TUBE FEEDINGS. RT MARIELY MADE AWARE OF RESPIRATORY CHANGES. STATES HE WILL COME UP AND SEE PATIENT.
[2024-06-25] VITALS (109 sets, daily range): BP systolic 75–139; BP diastolic 45–77; PULSE 43–121; RESP 5–39; TEMP 36.1–37.2; O2SAT 77–100
--- NOTE | 2024-06-25 02:28 | PC.RT ---
called to bedside by RN in regards to the pt desating to 83% at 2305. pt initialy saturating 94% on 2L NC. pt placed on 15L oxymask with no improvement. bagged the pt for 10 min and placed on [place] NC at 40L 100%fio2. the pt began to dasat and was placed on Bipap with improvement. MD toure at bedside as well.
--- NOTE | 2024-06-25 02:50 | PC.NURSE ---
RT AT BEDSIDE. PT WITH OXYGEN SATS IN 80'S, ALREADY ON BIPAP. PT BIPAP REMOVED AND PT WAS MANUALLY VENTILATED WITH AMBU BAG BY MARIELY MURPHY. ED MD AWARE OF NECESSARY INTUBATION. DR. VAUGHN SPOKE WITH CAREGIVER REGARDING CONSENT FOR INTUBATION WHICH WAS GIVEN BY HALI GATES. DR. HERMINIA ARGUETA MD AT BEDSIDE FOR INTUBATION, ETOMIDATE AND SUCCINYLCHOLINE GIVEN PER MD ORDER PRIOR TO. PLEASE SEE VENTILATION ASSESSMENT. PATIENT REQUIRED MULTIPLE DEEP SUCTIONING WITH 10F AND 14F WHICH PRODUCED THICK CREAM SPUTUM.
[2024-06-25] MEDS: ETOMIDATE INJ 2 MG/ML VIAL 10 ML 10 MG IVP (03:05)
[2024-06-25] MEDS: SUCCINYLCHOLINE INJ 20 MG/ML VIAL 10 ML 50 MG IV (03:05)
--- NOTE | 2024-06-25 03:07 | XR_ITS ---
Examination: IS SEEN. Examination: AP chest single view Technique: portable semiupright chest single view Exam date and time: June 25, 2024 0338 hrs. Comparison June 16, 2024, June 24, 2024 Indications: Hypoxic respiratory failure, pneumonia, COPD postintubation this week Findings: Mild enlargement cardiac contour Bilateral pneumonia and/or pulmonary edema Significant hyperexpansion Right internal jugular central line tip SVC satisfactory position Tracheal tube tip 4 cm above tiki Orogastric tube in the stomach Impression: COPD Bilateral pneumonia and/or pulmonary edema Tracheal tube tip 4 cm above tiki
--- NOTE | 2024-06-25 03:08 | PD.RESEVENT ---
Documentation for date of: 06/25/24 Event Note Event Note: Around 21:00 p.m. I received a call from patient nurse in the ICU that the patient was desatting to low 86 s for which was placed on 15 L per oxy mask SpO2 improved to 88 for which was transition to high flow nasal cannula 100% FiO2 however patient's SpO2 did not improve for which was transition to BiPAP and SpO2 improved to 92%. Later overnight around 2:00 AM O2 sats dropped to the low 70s and RT started to ventilate the patient with Ambu bag. While RT was ventilating the patient with Ambu bag was noting to be difficult to push, and patient was suction thick mucopurulent secretions were observed and saturations improved to 98% and later started to desat again for which decision to intubate. I contacted patient legal surrogate Indy aCi for consent to proceed with intubation for which we also read gave consent to proceed with patient nurse as a witness. ED physician was contacted for intubation, with no complications during the procedure. Patient discussed with my attending Dr Gabi Sanchez MD PGY-3 Disclaimer: Despite multiple revisions, due to the dictation software being used, the document bellow may not be free of grammatical errors including phonetic/typographic errors. However, this does not deter from our commitment to providing health care in the patient's best interest in mind.
[2024-06-25] MEDS: VASOPRESSIN IN NS IVPB 20 UNIT/100 ML BAG 9 UNIT IV ×2 (03:51→14:14)
[2024-06-25] MEDS: ACETYLCYSTEINE RT SOL 10% 4 ML NEBU 3 ML INH (04:13)
[2024-06-25] MEDS: ALBUTEROL/IPRATROPIUM (Duoneb) RT SOL 3 ML NEBU INH ×3 (04:31→19:59)
--- NOTE | 2024-06-25 04:37 | PC.NURSE ---
PER DR. VAUGHN, HOLD TUBE FEEDINGS AND PO MEDS AT THIS TIME.
--- NOTE | 2024-06-25 04:49 | PC.RT ---
at 0250 while doing rounds I noticed the pts spo2 was in the low 80's on Bipap RN called to bedside spo2 dropped to 77%. pt was bagged dr Sanchez was called to bedside and made the decision to intubate. intubation successful with a 5.5 ETT 20 at the teeth, Bilat breath sounds auscultated CXR confirmed tube placement.
[2024-06-25 05:15] LABS: Base Excess 6 (-3-3); HCO3 31 mEq/L (20-26); Inspired Oxygen, FIO2 100 %; O2 Saturation 92 % (91-98); PCO2 43 mmHg (32.0-48.0); PO2 60 mmHg (83-108); pH, Arterial 7.47 (7.35-7.45)
[2024-06-25 05:16] LABS: Allen Test Performed/OK; Puncture Site Right Radial
[2024-06-25] MEDS: MEROPENEM INJ 1,000 MG in SODIUM CHLORIDE 0.9% (P) 50 ML 100 MG IV ×3 (05:19→23:56)
[2024-06-25] MEDS: HYDROCORTISONE SOD SUCC INJ 100 MG VIAL IV ×3 (05:19→23:57)
[2024-06-25] MEDS: DOPamine/D5w 400 MG IVPB 400 MG/250 ML BAG 7.163 MG IV (05:24)
[2024-06-25] MEDS: fentaNYL 2,500 MCG/250 ML BAG 2,500 MCG/250 ML BAG IV (05:46)
[2024-06-25] MEDS: PROPOFOL 1,000 MG IVPB 1,000 MG/100 ML VIAL 0.624 MG IV (05:47)
[2024-06-25 06:18] LABS: Basophils # (Auto) 0.1 Thou/mm3 (0.0-0.2); Basophils % (Auto) 0 % (0-2.5); Eosinophils % (Auto) 0 % (0-10); Hematocrit 24.7 % (36.0-46.0); Immature Granulocytes % (Auto) 2 % (0-0); Immature Granulocytes Auto 0.63 Thou/mm3 (0.00-0.00); Lymphocytes # (Auto) 0.6 Thou/mm3 (1.0-4.8); Lymphocytes % (Auto) 2 % (10-50); Mean Corpuscular HGB Conc 35.6 g/dl (31.0-37.0); Mean Corpuscular Hemoglobin 33.5 pg (25.0-35.0); Mean Corpuscular Volume 94 fL (80-100); Monocytes # (Auto) 0.9 Thou/mm3 (0.0-0.8); Monocytes % (Auto) 3 % (0-12); Neutrophils # (Auto) 33.3 Thou/mm3 (1.8-7.7); Neutrophils % (Auto) 94 % (37-80); Nucleated Red Blood Cell % 0 /100 WBC (0); Platelet Count 338 Thou/mm3 (140-440); RDW Standard Deviation 55.8 fL (36.4-46.3); Red Blood Count 2.63 Miln/mm3 (4.00-5.20)
[2024-06-25 06:22] LABS: Hemoglobin 8.8 g/dL (12.0-16.0); White Blood Count 35.5 Thou/mm3 (3.6-11.0)
--- NOTE | 2024-06-25 06:33 | PC.NURSE ---
DR. VAUGHN MADE AWARE OF CRITICAL WBC 35.5. MEREPONEM GIVEN.
[2024-06-25 06:49] LABS: Glucose Estimated Average 120 mg/dL (80-131); Hemoglobin A1C 5.8 % Hgb (4.8-6.0)
[2024-06-25 06:54] LABS: Alanine Aminotransferase 101 U/L (10-49); Albumin, Serum 3.2 gm/dL (3.5-5.0); Albumin/Globulin Ratio 1.1 (1.2-2.2); Alkaline Phosphatase 152 U/L (46-116); Anion Gap 7 (7-16); Aspartate Amino Transferase 37 U/L (0-34); BUN/Creatinine Ratio 22 Ratio (12-20); Bilirubin,Total 0.5 mg/dL (0.3-1.2); Blood Urea Nitrogen 11 mg/dL (9-23); Calcium 7.8 mg/dL (8.3-10.6); Calcium (Corrected) 8.4 mg/dL (8.5-10.1); Carbon Dioxide 28.6 mMol/L (20.0-31.0); Chloride 89 mMol/L (98-107); Creatinine (Component) 0.5 mg/dL (0.6-1.3); Estimated Creatinine Clearance 41.6 mL/min (>60); Globulin 2.9 gm/dL (2.3-3.5); Glucose 226 mg/dL (74-106); Magnesium 1.7 mg/dL (1.6-2.6); Osmolality,Calculated 257 (275-295); Phosphorous 4.6 mg/dL (2.4-5.1); Potassium 3.4 mMol/L (3.4-5.1); Sodium 125 mMol/L (136-145); Total Protein 6.1 gm/dL (5.7-8.2); eGFR > 60 See Note
[2024-06-25] MEDS: VANCOMYCIN/NS 500 MG IVPB 100 ML 120 MG IV ×3 (08:36→22:24)
[2024-06-25] MEDS: ASPIRIN 81 MG CHEW PO (08:37)
[2024-06-25] MEDS: FLUDROCORTISONE ACETATE 0.1 MG TABLET 0.2 MG PO (08:37)
[2024-06-25] MEDS: CALCIUM CARBONATE 600 MG TABLET NG (08:37)
[2024-06-25] MEDS: SERTRALINE HCL 25 MG TABLET 100 MG NG (08:37)
[2024-06-25] MEDS: MULTIVITAMIN 15 ML UDC NG (08:37)
[2024-06-25] MEDS: POTASSIUM CHLORIDE 10% 20 MEQ/15 ML UDC 40 MEQ NG (08:37)
[2024-06-25] MEDS: Magnesium Sulfate 4 GM Ivpb 4 GM/50 ML BAG IV (08:37)
[2024-06-25] MEDS: NAPH,KPH MBDB 1 PACKET (1.5 GM) PO ×2 (08:37→23:56)
[2024-06-25] MEDS: THIAMINE INJ 100 MG/ML VIAL 2 ML IV (08:37)
[2024-06-25] MEDS: risperiDONE 1 MG TABLET 2 MG NG (08:37)
[2024-06-25] MEDS: PANTOPRAZOLE INJ 40 MG VIAL IVP (08:38)
--- NOTE | 2024-06-25 08:50 | XR_ITS ---
Examination: AP chest single view Technique: AP portable semiupright chest single view Exam date and time: June 25, 2024 0904 hrs. Comparison June 24, 2024 Indications: Shortness of breath hypoxic respiratory failure this week Findings: COPD with significant hyperexpansion Moderate enlargement cardiac contour Endotracheal tube tip 4.1 cm above tiki Right internal jugular central line tip SVC Bilateral lung opacity, prominent in the left lung with probable atelectasis left lower lobe Vascular congestion Orogastric tube in the stomach Impression: COPD Mild heart failure Bilateral pneumonia, significant left lung with atelectasis left lung Endotracheal tube tip 4.1 cm above tiki
[2024-06-25] MEDS: ALBUTEROL RT 2.5 MG/0.5 ML NEBU INH (08:55)
[2024-06-25] MEDS: SODIUM CHLORIDE RT SOL 0.9% 3 ML NEBU INH (08:55)
[2024-06-25 09:46] LABS: Path Review Blood Smear Sent to Pathologist
[2024-06-25] MEDS: Ferrous Sulfate 300 MG/5 ML UDC NG (09:58)
--- NOTE | 2024-06-25 13:19 | PC.SS ---
Update: Patient extubated on 06-24-24, patient re-intubated on 06-25-24. Patient receiving pressors. OG tube feedings in place.
[2024-06-25] MEDS: MIDODRINE 5 MG TABLET PO ×2 (13:20→23:56)
[2024-06-25] MEDS: SODIUM CHLORIDE 0.9% 500 ML 500 ML 999 ML IV (13:27)
[2024-06-25] MEDS: ACETYLCYSTEINE SOL 20% 4 ML NEBU 3 ML INH ×2 (15:32→19:59)
--- NOTE | 2024-06-25 15:45 | ESPR_ITS ---
Documentation for date of: 06/25/24 Subjective Subjective Interval history: 54 Y/O F with PMHx significant for Downs Syndrome, Schizophrenia,blindness, IBS, presents with chief complaint of AMS, last known normal 9 pm last night. Patient in unable to provide history, history taken from caregiver at bedside. Patient has had cough for about five days, noted sore throat. Patient has had diarrhea for 3 days, which is not uncommon for patient due to IBS. Patient was last seen at 9 pm last night. This morning patient was found unresponsive in her bed by caregiver. Patient is brought to ED, patient found to have low GCS, hypoxia with O2 sat 60% on nonrebreather, blood pressure 84 over palp. Patient was started on pressors, intubated. Patient had CODE BLUE, with 1 dose of epi before ROSC. Patient ventilated, started on sedation with propofol. Patient given 7 to 50 mL normal saline bolus and Rocephin in the ED. Blood urine and sputum cultures taken. 06/22/2024: Patient seen and examined at bedside. Patient more alert this morning, still very somnolent. EEG ordered. Changed pressor status: Dopamine set at 10, will titrate Levophed. Discussed with cream gatherer regarding risks and benefits of extubation, cream gatherer wishes to decide tomorrow after consulting with rest of family. Unasyn finished today. 06/23/2024: The patient was examined and evaluated at the bedside this morning. The patient seemed alert but is still somnolent. Patient is still on pressor support with Levophed, vasopressin and dopamine. Hb was 6.9 and was transfused 1 Unit PRBC. Electrolytes were significant for sodium of 125 and potassium of 3.0. We repleted potassium with 40 mEq KCl p.o. x 1. We added midodrine 5 Mg 3 times daily for the transition to oral pressor support. She was also a started on hydrocortisone 100 Mg 3 times daily, and we increased fludrocortisone to 0.2 Mg daily. Sertraline 100 Mg daily and risperidone 2 Mg twice daily was started. We will attempt for SAT and SBT. Goals of care discussion was done with the legal decision maker, who requested continuing aggressive medical management at this point. 06/24/2024: The patient was examined and evaluated at the bedside this morning. The patient seemed more alert today. Patient was on pressor support with Levophed 0.08, vasopressin 0.03 and dopamine 10, breathing spontaneously on mechanical ventilation with pressure support. White count trended down to 17.4, hemoglobin 7.8, sodium stable at 124, potassium 3.4, calcium 8.3, magnesium 1.7 and we repleted magnesium 2 g IV, started on calcium carbonate 600 Mg daily, blood sugar 293, started the patient on SSI sensitive scale. 40 mEq of KCl was repleted. The phosphorus was 2.5, and we increased the dose of Neutra-Phos to 2 packs twice daily. The patient was successfully extubated to oxy mask. PT Discussion regarding the decision maker was done by me with patient's sister Annamarie Wilson in the presence of RN She Julian. Patient's Sister Annamarie Wilson verbally stated that Ayala Putnam, who has been the cream gatherer of the patient would be the decision maker for the patient for medical management and CODE STATUS changes. 06/25/2024: The patient was examined and evaluated at the bedside this morning. Overnight, the patient was desaturating in 80s, and was started on NC, transitioned to oxy mask, transition to BiPAP and finally was reintubated. Chest x-ray was significant for left lower lung pneumonia, likely secondary to aspiration pneumonia as patient was recently extubated, and given her underlying severe malnutrition was started on tube feed. Patient is on fentanyl drip to maintain RASS of 0, and on pressor support with Levophed, vasopressin and dopamine. She continues to be in sinus bradycardia. White count elevated to 13.5 in the setting of aspiration pneumonia, sodium continues to be 125, and she was given 500 cc of IV normal saline bolus, potassium 3.4 and was given 40 mEq of KCl. Exam Vital Signs Temp Pulse Resp BP Pulse Ox O2 Del Method O2 Flow Rate 97.2 F 49 L 18 80/45 L 99 Mechanical Ventilation 1 06/25/24 12:00 06/25/24 15:30 06/25/24 08:55 06/25/24 15:30 06/25/24 15:30 06/25/24 15:00 06/24/24 22:39 FiO2 100 06/25/24 15:00 Narrative Exam PE: Gen: Extremely cachexic. Sedated and mechanically ventilated HEENT: moist mucous membranes. Left eye heavily scarred, right eye glassy. Scarring around nares. CVS: normal S1 and S2. No M/R/G. Sinus bradycardia. Resp: No rhonchi, rales, crackles or wheezing. Coarse lung sounds. Abd: soft, non-tender, non-distended. MSK: No edema. Multiple old scars/wounds on all extremities, patient has history of self-inflicted injuries, picking at skin. Hematoma at left/right inguinal folds, not expanding. Neuro: Sedated and mechanically ventilated. Objective Labs 07/08/24 04:59 07/10/24 05:30 Labs: Laboratory Results - last 24 hr 06/25/24 06/25/24 05:04 06:04 WBC 35.5 H* D RBC 2.63 L Hgb 8.8 L Hct 24.7 L MCV 94 MCH 33.5 MCHC 35.6 RDW Std Deviation 55.8 H Plt Count 338 D Neut % (Auto) 94 H Lymph % (Auto) 2 L [place] % (Auto) 3 Eos % (Auto) 0 Baso % (Auto) 0 Neut # (Auto) 33.3 H Lymph # (Auto) 0.6 L [place] # (Auto) 0.9 H Eos # (Auto) 0.0 Baso # (Auto) 0.1 Immature Gran # (Auto) 0.63 H Absolute Nucleated RBC 0.00 Immature Gran % 2 H Nucleated RBC % 0 Smear Path Review Sent to Pathologist Puncture Site Right Radial ABG pH 7.47 H ABG pCO2 43 ABG pO2 60 L ABG HCO3 31 H ABG O2 Saturation 92 ABG Base Excess 6 H FiO2 100 Sodium 125 L Potassium 3.4 Chloride 89 L Carbon Dioxide 28.6 Anion Gap 7 BUN 11 Creatinine 0.5 L Estim Creat Clear Calc 41.6 L eGFR > 60 BUN/Creatinine Ratio 22 H Glucose [address] Glu mg/dL 120 Hemoglobin A1c 5.8 Calculated Osmolality 257 L Calcium 7.8 L Corrected Calcium 8.4 L Phosphorus 4.6 Magnesium 1.7 Total Bilirubin 0.5 AST 37 H ALT 101 H Alkaline Phosphatase 152 H D Total Protein 6.1 Albumin 3.2 L Globulin 2.9 Albumin/Globulin Ratio 1.1 L ABG Interpretation ABG results: 06/15/24 06/15/24 06/15/24 11:06 14:05 17:00 ABG pH 7.23 L 7.33 L D 7.34 L ABG pCO2 69 H 56 H D 57 H ABG pO2 153 H 67 L D 65 L ABG HCO3 29 H 29 H 30 H ABG O2 Saturation 99 H 92 91 ABG Base Excess 0 3 4 H VBG pH VBG pCO2 VBG pO2 VBG Base Excess 06/16/24 06/17/24 06/18/24 04:04 04:36 04:04 ABG pH 7.35 7.42 7.53 H D ABG pCO2 57 H 54 H 57 H ABG pO2 58 L* 77 L 73 L ABG HCO3 31 H 35 H 47 H ABG O2 Saturation 88 L 96 96 ABG Base Excess 5 H 9 H 22 H VBG pH VBG pCO2 VBG pO2 VBG Base Excess 06/19/24 06/22/24 06/23/24 04:12 17:30 09:55 ABG pH 7.54 H ABG pCO2 50 H ABG pO2 61 L ABG HCO3 42 H ABG O2 Saturation 93 ABG Base Excess 18 H VBG pH 7.46 7.49 VBG pCO2 43 41 VBG pO2 98 H 39 D VBG Base Excess 6 H 7 H 06/25/24 05:04 ABG pH 7.47 H ABG pCO2 43 ABG pO2 60 L ABG HCO3 31 H ABG O2 Saturation 92 ABG Base Excess 6 H VBG pH VBG pCO2 VBG pO2 VBG Base Excess Quality Measures Quality Measures VTE prophylaxis Assessment & Plan Assessment Current Active Medications: Generic Name Dose Route Start Last Admin Trade Name Freq PRN Reason Stop Dose Admin Acetaminophen 650 mg 06/15/24 13:50 Acetaminophen Supp 650 Mg Supp OH 07/15/24 13:49 Q4HR PRN PAIN SCALE 1-3 (mild Acetaminophen 650 mg 06/19/24 07:27 06/19/24 07:43 Acetaminophen Noreen 325 Mg/10 Ml Udc NG 07/19/24 07:26 650 mg Q4HR PRN Administration Pain Or Fever > 100.4 Protocol Acetylcysteine 3 ml 06/25/24 15:25 06/25/24 15:32 Acetylcysteine Noreen 20% 4 Ml Nebu INH 07/25/24 15:24 3 ml Q6HRRT LIZ Administration Al Hydrox/Mg Hydrox/Simethicone 30 ml 06/15/24 13:50 Mg Hyd/Al Hyd/[place] (Maalox Reg) Susp 30 Ml Udc NG 07/15/24 13:49 Q4HR PRN Heartburn or Upset Stomach Albuterol/Ipratropium 3 ml 06/25/24 15:25 06/25/24 15:32 Albuterol/Ipratropium (Duoneb) Rt Noreen 3 Ml Nebu INH 07/25/24 15:24 3 ml Q6HRRT LIZ Administration Aspirin 81 mg 06/23/24 09:00 06/25/24 08:37 Aspirin 81 Mg Chew PO 07/23/24 08:59 81 mg QDAY LIZ Administration Atorvastatin Calcium 40 mg 06/21/24 21:00 06/24/24 21:32 Atorvastatin Calcium 20 Mg Tablet PO 07/21/24 20:59 40 mg HS LIZ Administration Calcium Carbonate 600 mg 06/23/24 09:00 06/25/24 08:37 Calcium Carbonate 600 Mg Tablet NG 07/23/24 08:59 600 mg QDAY LIZ Administration Dextrose 25 ml 06/24/24 13:46 Dextrose 50%-Water Inj 50 Ml Syringe IV 07/24/24 13:45 Q15MIN PRN BG 50-70 responsive npo pt Dextrose 50 ml 06/24/24 13:46 Dextrose 50%-Water Inj 50 Ml Syringe IV 07/24/24 13:45 Q15MIN PRN BG <50 OR BG <70 & pt unresponsive Ferrous Sulfate 300 mg 06/25/24 09:00 06/25/24 09:58 Ferrous Sulfate 300 Mg/5 Ml Udc NG 07/25/24 08:59 300 mg QDAY LIZ Administration Fludrocortisone Acetate 0.2 mg 06/24/24 09:00 06/25/24 08:37 Fludrocortisone Acetate 0.1 Mg Tablet PO 07/24/24 08:59 0.2 mg QDAY LIZ Administration Glucagon 1 mg 06/24/24 13:46 Glucagon Inj 1 Mg Vial IM Q15MIN PRN BG <70, and no IV access Heparin Sodium (Porcine) 5,000 unit 06/15/24 14:00 06/19/24 14:14 Heparin Sod Inj 5000 Unit/Ml Vial SC 06/29/24 13:59 Not Given Q8HR LIZ Hydrocortisone Sodium Succinate 100 mg 06/23/24 11:15 06/25/24 13:20 Hydrocortisone Sod Succ Inj 100 Mg Vial IV 06/30/24 11:14 100 mg Q8HR LIZ Administration Furosemide 200 mg/ Sodium 100 mls @ 5 mls/hr 06/17/24 10:56 06/18/24 07:15 Chloride IV 07/17/24 10:55 0 mls/hr .Q20H LIZ Infusion Vasopressin/Sodium Chloride 20 unit in 100 mls @ 9 mls/hr 06/20/24 09:54 06/25/24 14:14 Vasostrict/Ns Ivpb IV 07/20/24 09:53 0.03 unit/min .Q11H7M PRN 9 mls/hr PER PROTOCOL Administration Protocol 0.03 UNIT/MIN Norepinephrine/Dextrose 8 mg in 250 mls @ 1.791 mls/hr 06/22/24 18:20 06/25/24 15:00 Levophed In D5w 8mg/250ml IV 07/15/24 22:03 0.17 mcg/kg/min .Q24H PRN 6.088 mls/hr PER PROTOCOL Titration Protocol 0.05 MCG/KG/MIN Dopamine HCl/Dextrose 400 mg in 250 mls @ 7.163 mls/hr 06/23/24 19:12 06/25/24 15:00 Intropin In D5w Ivpb IV 07/23/24 19:11 10 mcg/kg/min .Q24H LIZ 7.163 mls/hr Titration Protocol 10 MCG/KG/MIN Meropenem 1,000 mg/ Sodium 50 mls @ 100 mls/hr 06/25/24 06:00 06/25/24 14:17 Chloride IV 07/02/24 04:46 Infused Q8HR LIZ Infusion Fentanyl Citrate 2,500 mcg in 250 mls @ 2.5 mls/hr 06/25/24 05:27 06/25/24 15:00 Sublimaze Inj 2,500 Mcg/250 Ml Bag IV 06/30/24 05:26 25 mcg/hr .Q24H PRN 2.5 mls/hr PER PROTOCOL Titration Protocol 25 MCG/HR Propofol 1,000 mg in 100 mls @ 0.624 mls/hr 06/25/24 05:27 06/25/24 15:00 Diprivan Ivpb IV 07/25/24 05:26 0 mcg/kg/min .Q24H PRN 0 mls/hr PER PROTOCOL Titration Protocol 5 MCG/KG/MIN Vancomycin/Sodium Chloride 100 mls @ 120 mls/hr 06/25/24 07:00 06/25/24 14:12 Vancomycin/Ns 500 Mg Ivpb IV 07/02/24 06:59 Infused Q8HR LIZ Infusion Protocol Influenza Virus Vaccine Quadrival 0.5 ml 06/29/24 09:00 Influenza Virus Quadrivalent 0.5 Ml Syringe IMi 06/29/24 09:01 .ONCE ONE Insulin Human Lispro 0 unit 06/24/24 18:00 06/25/24 11:28 Insulin Lispro (Admelog) 1 Unit/0.01 Ml Unit SC 07/24/24 17:59 Not Given Q6HR LIZ Protocol Magnesium Hydroxide 30 ml 06/15/24 13:50 Milk Of Magnesia Susp 30 Ml Udc NG 07/15/24 13:49 QDAY PRN CONSTIPATION Midodrine 5 mg 06/23/24 14:00 06/25/24 13:20 Midodrine 5 Mg Tablet PO 07/23/24 13:59 5 mg TID LIZ Administration Multivitamins/Minerals 15 ml 06/19/24 15:15 06/25/24 08:37 Multivitamin 15 Ml Udc NG 07/19/24 15:14 15 ml QDAY LIZ Administration Pantoprazole Sodium 40 mg 06/16/24 09:00 06/25/24 08:38 Pantoprazole Inj 40 Mg Vial IVP 07/16/24 08:59 40 mg QDAY LIZ Administration Pharmacy Consult 1 each 06/15/24 18:27 Pharmacy To Consult Pneumovacc XX 07/15/24 18:26 PRN PRN CONSULT Pharmacy Consult 1 each 06/25/24 09:00 Vancomycin Pharmacy To Dose 1 Each Each IV 07/25/24 08:59 QDAY PRN PROTOCOL Pneumococcal Polyvalent Vaccine 0.5 ml 06/29/24 09:00 Pneumoc 20-Karen Conj-Dip Crm/Pf 0.5 Ml Syringe IMi 06/29/24 09:01 .ONCE ONE Potassium Phos/Sodium Phos 1 packet 06/25/24 09:00 06/25/24 08:37 Naph,Kph Mbdb 1 Packet (1.5 Gm) PO 06/28/24 08:59 1 packet BID LIZ Administration Sertraline HCl 100 mg 06/23/24 15:30 06/25/24 08:37 Sertraline Hcl 25 Mg Tablet NG 07/23/24 15:29 100 mg QDAY LIZ Administration Sodium Chloride 3 ml 06/25/24 08:37 06/25/24 08:55 Sodium Chloride Rt Noreen 0.9% 3 Ml Nebu INH 07/25/24 08:36 3 ml PRN PRN Administration SOLN Thiamine HCl 100 mg 06/19/24 15:15 06/25/24 08:37 Thiamine Inj 100 Mg/Ml Vial 2 Ml IV 07/19/24 15:14 100 mg QDAY LIZ Administration Plan 54 Y/O F with PMHx significant for Downs Syndrome, Schizophrenia,blindness, IBS, presents with chief complaint of AMS, last known normal 9 pm last night, admitted to ICU for septic shock requiring pressors and acute hypoxic respiratory failure requiring intubation. 06/24/24:Discussion regarding the decision maker was done by me with patient's sister Annamarie Wilson in the presence of RN She Julian. Sister Annamarie Wilson verbally stated that Ayala Putnam, who has been the cream gatherer of the patient would be the decision maker for the patient for medical management and CODE STATUS. 06/25/2024: The patient was examined and evaluated at the bedside this morning. Overnight, the patient was desaturating in 80s, and was started on NC, transitioned to oxy mask, transition to BiPAP and finally was reintubated. Chest x-ray was significant for left lower lung pneumonia, likely secondary to aspiration pneumonia as patient was recently extubated, and given her underlying severe malnutrition was started on tube feed. Patient is on fentanyl drip to maintain RASS of 0, and on pressor support with Levophed, vasopressin and dopamine. She continues to be in sinus bradycardia. White count elevated to 13.5 in the setting of aspiration pneumonia, sodium continues to be 125, and she was given 500 cc of IV normal saline bolus, potassium 3.4 and was given 40 mEq of KCl. Neuro: #Acute encephalopathy, improving Multifactorial: hypoxia, S/p shock Low density areas in both basal ganglia seen on head CT On Presidex tapering down, withdraws to pain -EEG ordered, was significant for anoxic brain injury -Treat underlying conditions -Neuro consult placed, follow up -Atorvastatin and aspirin -Hold plavix due to low hemoglobin, hematomas #Schizophrenia #Depression Patient is on home medication risperidone 4mg BID, Sertraline 100mg daily, Ziprasidone 60mg BID and zolpidem 10mg PO HS -Resumed sertraline 100mg daily, we will resume other home medications by tomorrow Cardio: #Shock Multifactorial: #Adrenal insufficiency complicated by hypovolemia Patient blood pressure was initially 84 by palpation. Patient requires extensive pressors, vasopressin and Levophed and high doses. Bedside echo showed good left ventricular contractility, no signs of right ventricular overload. Patient is dehydrated, has had diarrhea for the past 3 days. IVC on bedside echo was variable. Patient received 750 mL normal saline bolus and 1 L of lactated Ringer's bolus. Bedside echo showed IVC congestion, patient continues to require pressors. Patient received Albumin with Lasix drip. Patient HR and BP worsened once hydrocortisone decreased. -Titrate Levophed to maintain MAP greater than 60 -Dopamine set at 10 mcg/KG/MIN -Hydrocortisone 100mg IV TID -Fludracortisone 0.2mg OG daily -adequate nutrition -Received 500cc IV bolus normal NaCl. -Treat underlying conditions #Sinus bradycardia, resolving Likely secondary to adrenal insufficiency Patient developed sinus bradycardia, dropping to low 30's. EKG only showed sinus bradycardia. Patient started on dopamine drip, unable to be titrated off. Heart rate stable in high 40's. Patient maintaining heart rate around 50. Heart rate improves when patient receives tactile stimulation. -Dopamine drip set at 10 mcg/KG/MIN -Fludracortisone -telemonitoring Pulm: #AHRF 2/2 aspiration pneumonia Patient has history of Down syndrome, risk for aspiration pneumonia. Bacterial and viral pneumonia both possible. Influenza panel negative. MRSA screen negative. Sedated and mechanically ventillated -Zosyn (06/16-06/18) changed to Unasyn (06/18-06/22) -Vancomycin pharmacy dosing (started 06/19-06/23) -Extubated on 06/24/24, but reintubated on 06/25 -On vancomycina and Meropenem 06/25- GI: #Severe protein malnutrition Patient BMI 14.9. Patient unable to provide history, per caregiver patient has good oral intake most times, has been malnourished for years due to chronic diarrhea, has not had significant weight loss recently. Patient has very little muscle mass, temporal wasting, sunken eyes. -Dietary consult, appreciate recommendations -Thiamine and multivitamin supplements -Tube feeds, advanced -daily labs -Every 8 hours BMP, phosphorus, magnesium -aggressive monitoring/repleating of potassium, phosphorous, magnesium #IBS Patient history of IBS. Patient had diarrhea for 3 days prior to admission, not unusual for patient. Patient has been having regular bowel movements during hospital stay. -Monitor bowel movements -Treat metabolic abnormalities as needed #Tube feeds Trickle feeds initiated, advanced to goal rate of 35 ml/hr. Renal: #ОЛЬГА, resolved DDx: Prerenal due to dehydration versus ischemic ATN Patient presented with BUN 62, creatinine 2.6, eGFR 22. No previous labs to compare to. Patient has adequate urine output. Patient appears severely dehydrated exam, has received multiple boluses of fluid, on IVF. Patient was also severely hypotensive, requiring significant pressor support. Patient recieved albumin and lasix drip, lasix held next day Holding Lasix, renal function labs normalizing. Patient continues to have good urine output. -Monitor closely, maintain euvolemia -Monitor daily labs -Avoid nephrotoxins -Monitor urine output #Hypernatremia, resolved Likely due to severe dehydration. Sodium admission is 166. Patient received 150 mL bolus normal saline in the ED. Patient was then given 1 L bolus lactated Ringer's. #Hyponatremia: 2/2 excess free water in the setting of 250cc water flushes q8h -Decreased water flushes to 50cc Q8H -Received 500 cc of normal saline Endo: #Adrenal insufficiency Suspect due to chronic malnutrition. Patient arrived with hypotension, hypernatremia. Patient has been hypokalemic despite repletion and bradycardic. Clinical improvement with hydrocortisone followed by worsening when dosage reduced. -Fludracortisone increased to 0.2mg OG daily -monitor sodium and potassium #Hyperglycemia Patient has mild hyperglycemia, trending up. No history of diabetes. Likely due to steroid treatment. -Started on SSI lispro q6h -Monitor Heme: #Hematomas Hematomas in bilateral inguinal folds as complications of attempted femoral arterial line placement. -pressure dressings -demarcations to monitor for expansion -hold DVT prophylaxis #Macrocytic anemia Patient hemoglobin 9.2, MCV 114. No previous labs to compare to. No obvious signs of acute bleeding. On 06/23: Hb 6.9, transfused 1 unit PRBC Folate and B12 not depleted. -Monitor #Leukocytosis Likely due to glucocorticosteroid. -Monitor ID: #Fever, resolved #UTI Patient urinalysis indicated UTI: Positive leukocyte esterase, rare bacteria, 36 WBCs. Cultures grew mckeon-sensitive E. Coli. -On Unasyn-completed #Aspiration Pneumonia Patient in acute hypoxic respiratory failure, chest x-ray with left-sided consolidations. -On Unasyn (completed) -Started on meropenem and vancomycin 06/25- Skin/MSK: #No active issues Lines: RIJ/PIV DVT prophylaxis: Held due to hematomas G.I prophylaxis: Pantoprazole Code: Full code The patient's management plan was discussed with my attending physician MD Otto Reeves MD, PGY2 Attending Provider Attestation/Addendum Patient seen and examined with above resident, Otto Mclaughlin MD. I agree with the findings, assessment, and plan of care as documented except for any differences below. Patient was successfully extubated however overnight continues to have slow deterioration in oxygenation warranting increased to oxy mask and attempted BiPAP. Patient notably was restarted on tube feeds and did receive risperidone. Patient also with significant weakness after severe acute illness from pneumonia/UTI with limited reserves given her severe protein calorie malnutrition. This was explained to the patient's family prior to extubation given risk/benefit for prolonged ventilation strategy. Patient did well during SBT prior to extubation. I have requested residents already to discontinue risperidone as there is no evidence of positive symptoms from her underlying psychiatric illness. Patient remains on appropriate sedation for compliance with mechanical ventilation. Lung protective settings remain in place with plateau pressure below 30. Concerned that she may have aspirated due to inability to adequately protect airway with recurrent aspiration seen in the left lower lung. Patient restarted on broad-spectrum antibiotics with development increasing pressor requirement. Patient's family was updated overnight. Patient remains on appropriate prophylaxis and we will reinitiate on tube feeds. Total critical care time: I personally spent 40 minutes for review of physiologic parameters, directing plan of care throughout the day, coordination of care with other specialist, and counseling patient's family at bedside. This is exclusive of time spent teaching housestaff or performing any separate billable procedures. Patient remains at significant risk for further morbidity and mortality warranting ongoing management and care only available in the intensive care unit.
[2024-06-25] MEDS: INSULIN LISPRO (AdmeLOG) 1 UNIT/0.01 ML UNIT SC ×2 (17:36→23:59)
--- NOTE | 2024-06-25 22:43 | ESPR_ITS ---
Documentation for date of: 06/25/24 Exam - Neurology Vital Signs Temp Pulse Resp BP Pulse Ox O2 Del Method O2 Flow Rate 96.9 F 46 L 18 93/57 L 94 L Mechanical Ventilation 1 06/25/24 16:00 06/25/24 18:15 06/25/24 15:35 06/25/24 18:15 06/25/24 18:15 06/25/24 18:00 06/24/24 22:39 FiO2 100 06/25/24 18:00 Objective Labs 06/25/24 06:04 06/25/24 06:04 Labs: Laboratory Results - last 24 hr 06/25/24 06/25/24 05:04 06:04 WBC 35.5 H* D RBC 2.63 L Hgb 8.8 L Hct 24.7 L MCV 94 MCH 33.5 MCHC 35.6 RDW Std Deviation 55.8 H Plt Count 338 D Neut % (Auto) 94 H Lymph % (Auto) 2 L [place] % (Auto) 3 Eos % (Auto) 0 Baso % (Auto) 0 Neut # (Auto) 33.3 H Lymph # (Auto) 0.6 L [place] # (Auto) 0.9 H Eos # (Auto) 0.0 Baso # (Auto) 0.1 Immature Gran # (Auto) 0.63 H Absolute Nucleated RBC 0.00 Immature Gran % 2 H Nucleated RBC % 0 Smear Path Review Sent to Pathologist Puncture Site Right Radial ABG pH 7.47 H ABG pCO2 43 ABG pO2 60 L ABG HCO3 31 H ABG O2 Saturation 92 ABG Base Excess 6 H FiO2 100 Sodium 125 L Potassium 3.4 Chloride 89 L Carbon Dioxide 28.6 Anion Gap 7 BUN 11 Creatinine 0.5 L Estim Creat Clear Calc 41.6 L eGFR > 60 BUN/Creatinine Ratio 22 H Glucose [address] Glu mg/dL 120 Hemoglobin A1c 5.8 Calculated Osmolality 257 L Calcium 7.8 L Corrected Calcium 8.4 L Phosphorus 4.6 Magnesium 1.7 Total Bilirubin 0.5 AST 37 H ALT 101 H Alkaline Phosphatase 152 H D Total Protein 6.1 Albumin 3.2 L Globulin 2.9 Albumin/Globulin Ratio 1.1 L ABG Interpretation ABG results: 06/15/24 06/15/24 06/15/24 11:06 14:05 17:00 ABG pH 7.23 L 7.33 L D 7.34 L ABG pCO2 69 H 56 H D 57 H ABG pO2 153 H 67 L D 65 L ABG HCO3 29 H 29 H 30 H ABG O2 Saturation 99 H 92 91 ABG Base Excess 0 3 4 H VBG pH VBG pCO2 VBG pO2 VBG Base Excess 06/16/24 06/17/24 06/18/24 04:04 04:36 04:04 ABG pH 7.35 7.42 7.53 H D ABG pCO2 57 H 54 H 57 H ABG pO2 58 L* 77 L 73 L ABG HCO3 31 H 35 H 47 H ABG O2 Saturation 88 L 96 96 ABG Base Excess 5 H 9 H 22 H VBG pH VBG pCO2 VBG pO2 VBG Base Excess 06/19/24 06/22/24 06/23/24 04:12 17:30 09:55 ABG pH 7.54 H ABG pCO2 50 H ABG pO2 61 L ABG HCO3 42 H ABG O2 Saturation 93 ABG Base Excess 18 H VBG pH 7.46 7.49 VBG pCO2 43 41 VBG pO2 98 H 39 D VBG Base Excess 6 H 7 H 06/25/24 05:04 ABG pH 7.47 H ABG pCO2 43 ABG pO2 60 L ABG HCO3 31 H ABG O2 Saturation 92 ABG Base Excess 6 H VBG pH VBG pCO2 VBG pO2 VBG Base Excess Procedures Arterial Line Size (Gauge): 20
[2024-06-25] MEDS: ATORVASTATIN CALCIUM 20 MG TABLET 40 MG PO (23:56)
[2024-06-26] VITALS (107 sets, daily range): BP systolic 61–139; BP diastolic 33–84; PULSE 45–86; RESP 12–30; TEMP 36.3–37.3; O2SAT 88–100; BMI 15.0
[2024-06-26] MEDS: VASOPRESSIN IN NS IVPB 20 UNIT/100 ML BAG 9 UNIT IV (01:40)
[2024-06-26] MEDS: ALBUTEROL/IPRATROPIUM (Duoneb) RT SOL 3 ML NEBU INH ×4 (02:30→18:48)
[2024-06-26] MEDS: ACETYLCYSTEINE SOL 20% 4 ML NEBU 3 ML INH ×4 (02:30→18:48)
[2024-06-26] MEDS: MEROPENEM INJ 1,000 MG in SODIUM CHLORIDE 0.9% (P) 50 ML 100 MG IV ×3 (05:37→21:53)
[2024-06-26] MEDS: MIDODRINE 5 MG TABLET PO ×3 (05:37→21:53)
[2024-06-26] MEDS: HYDROCORTISONE SOD SUCC INJ 100 MG VIAL IV ×3 (05:37→21:53)
[2024-06-26 06:00] LABS: Basophils # (Auto) 0.1 Thou/mm3 (0.0-0.2); Basophils % (Auto) 0 % (0-2.5); Eosinophils % (Auto) 0 % (0-10); Hematocrit 23.8 % (36.0-46.0); Immature Granulocytes % (Auto) 1 % (0-0); Lymphocytes # (Auto) 0.5 Thou/mm3 (1.0-4.8); Lymphocytes % (Auto) 2 % (10-50); Mean Corpuscular HGB Conc 34.5 g/dl (31.0-37.0); Mean Corpuscular Hemoglobin 32.5 pg (25.0-35.0); Mean Corpuscular Volume 94 fL (80-100); Monocytes # (Auto) 0.5 Thou/mm3 (0.0-0.8); Monocytes % (Auto) 1 % (0-12); Neutrophils # (Auto) 29.8 Thou/mm3 (1.8-7.7); Neutrophils % (Auto) 96 % (37-80); Nucleated Red Blood Cell % 0 /100 WBC (0); Platelet Count 378 Thou/mm3 (140-440); RDW Standard Deviation 56.3 fL (36.4-46.3); Red Blood Count 2.52 Miln/mm3 (4.00-5.20); White Blood Count 31.2 Thou/mm3 (3.6-11.0)
[2024-06-26 06:35] LABS: Alanine Aminotransferase 83 U/L (10-49); Albumin, Serum 3.2 gm/dL (3.5-5.0); Albumin/Globulin Ratio 1.2 (1.2-2.2); Alkaline Phosphatase 158 U/L (46-116); Anion Gap 5 (7-16); Aspartate Amino Transferase 26 U/L (0-34); BUN/Creatinine Ratio 30 Ratio (12-20); Bilirubin,Total 0.4 mg/dL (0.3-1.2); Blood Urea Nitrogen 12 mg/dL (9-23); Calcium 7.7 mg/dL (8.3-10.6); Calcium (Corrected) 8.3 mg/dL (8.5-10.1); Carbon Dioxide 29.2 mMol/L (20.0-31.0); Chloride 93 mMol/L (98-107); Creatinine (Component) 0.4 mg/dL (0.6-1.3); Estimated Creatinine Clearance 58.2 mL/min (>60); Globulin 2.6 gm/dL (2.3-3.5); Glucose 130 mg/dL (74-106); Magnesium 2.2 mg/dL (1.6-2.6); Osmolality,Calculated 256 (275-295); Phosphorous 3.3 mg/dL (2.4-5.1); Potassium 3.9 mMol/L (3.4-5.1); Sodium 127 mMol/L (136-145); Total Protein 5.8 gm/dL (5.7-8.2); eGFR > 60 See Note
[2024-06-26 06:54] LABS: Hemoglobin 8.2 g/dL (12.0-16.0)
[2024-06-26] MEDS: NAPH,KPH MBDB 1 PACKET (1.5 GM) PO ×2 (11:05→21:53)
[2024-06-26] MEDS: Ferrous Sulfate 300 MG/5 ML UDC NG (11:05)
[2024-06-26] MEDS: ASPIRIN 81 MG CHEW PO (11:05)
[2024-06-26] MEDS: PANTOPRAZOLE INJ 40 MG VIAL IVP (11:06)
[2024-06-26] MEDS: CALCIUM CARBONATE 600 MG TABLET NG (11:06)
[2024-06-26] MEDS: THIAMINE INJ 100 MG/ML VIAL 2 ML IV (11:06)
[2024-06-26] MEDS: SERTRALINE HCL 25 MG TABLET 100 MG NG (11:06)
[2024-06-26] MEDS: FLUDROCORTISONE ACETATE 0.1 MG TABLET 0.2 MG PO (11:06)
[2024-06-26] MEDS: MULTIVITAMIN 15 ML UDC NG (11:06)
[2024-06-26] MEDS: INSULIN LISPRO (AdmeLOG) 1 UNIT/0.01 ML UNIT SC ×2 (12:18→17:41)
[2024-06-26 12:25] LABS: Lactate (Lactic Acid) 1.7 mMol/L (0.4-2.0)
[2024-06-26 12:26] LABS: Base Excess, Venous 6 (-3-3); O2 Saturation, Venous 65 % (96-97); PCO2, Venous 47 mmHg (36-56); PO2, Venous 35 mmHg (15-58); pH, Venous 7.43 (7.33-7.66)
[2024-06-26] MEDS: SODIUM CHLORIDE 0.9% 250 ML 250 ML 999 ML IV (15:18)
--- NOTE | 2024-06-26 18:05 | ESPR_ITS ---
Documentation for date of: 06/26/24 Subjective Subjective Interval history: 54 Y/O F with PMHx significant for Downs Syndrome, Schizophrenia,blindness, IBS, presents with chief complaint of AMS, last known normal 9 pm last night. Patient in unable to provide history, history taken from caregiver at bedside. Patient has had cough for about five days, noted sore throat. Patient has had diarrhea for 3 days, which is not uncommon for patient due to IBS. Patient was last seen at 9 pm last night. This morning patient was found unresponsive in her bed by caregiver. Patient is brought to ED, patient found to have low GCS, hypoxia with O2 sat 60% on nonrebreather, blood pressure 84 over palp. Patient was started on pressors, intubated. Patient had CODE BLUE, with 1 dose of epi before ROSC. Patient ventilated, started on sedation with propofol. Patient given 7 to 50 mL normal saline bolus and Rocephin in the ED. Blood urine and sputum cultures taken. 06/24/2024: The patient was examined and evaluated at the bedside this morning. The patient seemed more alert today. Patient was on pressor support with Levophed 0.08, vasopressin 0.03 and dopamine 10, breathing spontaneously on mechanical ventilation with pressure support. White count trended down to 17.4, hemoglobin 7.8, sodium stable at 124, potassium 3.4, calcium 8.3, magnesium 1.7 and we repleted magnesium 2 g IV, started on calcium carbonate 600 Mg daily, blood sugar 293, started the patient on SSI sensitive scale. 40 mEq of KCl was repleted. The phosphorus was 2.5, and we increased the dose of Neutra-Phos to 2 packs twice daily. The patient was successfully extubated to oxy mask. Discussion regarding the decision maker was done by me with patient's sister Annamarie Wilson in the presence of SRIKANTH Julian. Patient's Sister Annamarie Wilson verbally stated that Ayala Putnam, who has been the [facility] assisted [facility] the patient would be the decision maker for the patient for medical management and CODE STATUS changes. 06/25/2024: The patient was examined and evaluated at the bedside this morning. Overnight, the patient was desaturating in 80s, and was started on NC, transitioned to oxy mask, transition to BiPAP and finally was reintubated. Chest x-ray was significant for left lower lung pneumonia, likely secondary to aspiration pneumonia as patient was recently extubated, and given her underlying severe malnutrition was started on tube feed. Patient is on fentanyl drip to maintain RASS of 0, and on pressor support with Levophed, vasopressin and dopamine. She continues to be in sinus bradycardia. White count elevated to 13.5 in the setting of aspiration pneumonia, sodium continues to be 125, and she was given 500 cc of IV normal saline bolus, potassium 3.4 and was given 40 mEq of KCl. 06/26/2024: The patient was examined and evaluated at the bedside this morning. Overnight, patient did not had any acute overnight events. White count mildly trended down to 31.2, cultures pending, we discontinued linezolid and we will continue with meropenem at this point. Patient tapered down on dopamine to 7.5, and other pressor support discontinued. We considered for MAP to be stable if greater than 50, as demonstrated by normal lactic acid level at MAP greater than 50. The plan is to extubate the patient tomorrow morning. Exam Vital Signs Temp Pulse Resp BP Pulse Ox O2 Del Method O2 Flow Rate 97.4 F 72 18 71/41 L 94 L Mechanical Ventilation 1 06/26/24 12:00 06/26/24 15:19 06/26/24 12:30 06/26/24 15:19 06/26/24 14:10 06/26/24 12:00 06/24/24 22:39 FiO2 40 06/26/24 14:10 Narrative Exam PE: Gen: Extremely cachexic. mechanically ventilated HEENT: moist mucous membranes. Left eye heavily scarred, right eye glassy. Scarring around nares. CVS: normal S1 and S2. No M/R/G. Sinus bradycardia. Resp: No rhonchi, rales, crackles or wheezing. Coarse lung sounds. Abd: soft, non-tender, non-distended. MSK: No edema. Multiple old scars/wounds on all extremities, patient has history of self-inflicted injuries, picking at skin. Hematoma at left/right inguinal folds, not expanding. Neuro: Unobatainable Objective Labs 07/04/24 05:02 07/04/24 05:02 Labs: Laboratory Results - last 24 hr 06/26/24 06/26/24 04:47 12:08 WBC 31.2 H RBC 2.52 L Hgb 8.2 L Hct 23.8 L MCV 94 MCH 32.5 MCHC 34.5 RDW Std Deviation 56.3 H Plt Count 378 D Neut % (Auto) 96 H Lymph % (Auto) 2 L [place] % (Auto) 1 Eos % (Auto) 0 Baso % (Auto) 0 Neut # (Auto) 29.8 H Lymph # (Auto) 0.5 L [place] # (Auto) 0.5 Eos # (Auto) 0.0 Baso # (Auto) 0.1 Immature Gran # (Auto) 0.40 H Absolute Nucleated RBC 0.00 Immature Gran % 1 H Nucleated RBC % 0 VBG pH 7.43 VBG pCO2 47 VBG pO2 35 VBG O2 Sat (George) 65 L VBG Base Excess 6 H Sodium 127 L Potassium 3.9 D Chloride 93 L Carbon Dioxide 29.2 Anion Gap 5 L BUN 12 Creatinine 0.4 L Estim Creat Clear Calc 58.2 L eGFR > 60 BUN/Creatinine Ratio 30 H Glucose 130 H D Calculated Osmolality 256 L Lactic Acid 1.7 Calcium 7.7 L Corrected Calcium 8.3 L Phosphorus 3.3 Magnesium 2.2 Total Bilirubin 0.4 AST 26 ALT 83 H Alkaline Phosphatase 158 H Total Protein 5.8 Albumin 3.2 L Globulin 2.6 Albumin/Globulin Ratio 1.2 Vancomycin Trough 23.0 H* ABG Interpretation ABG results: 06/15/24 06/15/24 06/15/24 11:06 14:05 17:00 ABG pH 7.23 L 7.33 L D 7.34 L ABG pCO2 69 H 56 H D 57 H ABG pO2 153 H 67 L D 65 L ABG HCO3 29 H 29 H 30 H ABG O2 Saturation 99 H 92 91 ABG Base Excess 0 3 4 H VBG pH VBG pCO2 VBG pO2 VBG Base Excess 06/16/24 06/17/24 06/18/24 04:04 04:36 04:04 ABG pH 7.35 7.42 7.53 H D ABG pCO2 57 H 54 H 57 H ABG pO2 58 L* 77 L 73 L ABG HCO3 31 H 35 H 47 H ABG O2 Saturation 88 L 96 96 ABG Base Excess 5 H 9 H 22 H VBG pH VBG pCO2 VBG pO2 VBG Base Excess 1206/22/24 06/23/24 04:12 17:30 09:55 ABG pH 7.54 H ABG pCO2 50 H ABG pO2 61 L ABG HCO3 42 H ABG O2 Saturation 93 ABG Base Excess 18 H VBG pH 7.46 7.49 VBG pCO2 43 41 VBG pO2 98 H 39 D VBG Base Excess 6 H 7 H 06/25/24 06/26/24 05:04 12:08 ABG pH 7.47 H ABG pCO2 43 ABG pO2 60 L ABG HCO3 31 H ABG O2 Saturation 92 ABG Base Excess 6 H VBG pH 7.43 VBG pCO2 47 VBG pO2 35 VBG Base Excess 6 H Quality Measures Quality Measures VTE prophylaxis Assessment & Plan Assessment Current Active Medications: Generic Name Dose Route Start Last Admin Trade Name Freq PRN Reason Stop Dose Admin Acetaminophen 650 mg 06/15/24 13:50 Acetaminophen Supp 650 Mg Supp MA 07/15/24 13:49 Q4HR PRN PAIN SCALE 1-3 (mild Acetaminophen 650 mg 06/19/24 07:27 06/19/24 07:43 Acetaminophen Noreen 325 Mg/10 Ml Udc NG 07/19/24 07:26 650 mg Q4HR PRN Administration Pain Or Fever > 100.4 Protocol Acetylcysteine 3 ml 06/25/24 15:25 06/26/24 12:27 Acetylcysteine Noreen 20% 4 Ml Nebu INH 07/25/24 15:24 3 ml Q6HRRT LIZ Administration Al Hydrox/Mg Hydrox/Simethicone 30 ml 06/15/24 13:50 Mg Hyd/Al Hyd/[place] (Maalox Reg) Susp 30 Ml Udc NG 07/15/24 13:49 Q4HR PRN Heartburn or Upset Stomach Albuterol/Ipratropium 3 ml 06/25/24 15:25 06/26/24 12:27 Albuterol/Ipratropium (Duoneb) Rt Noreen 3 Ml Nebu INH 07/25/24 15:24 3 ml Q6HRRT LIZ Administration Aspirin 81 mg 06/23/24 09:00 06/26/24 11:05 Aspirin 81 Mg Chew PO 07/23/24 08:59 81 mg QDAY LIZ Administration Atorvastatin Calcium 40 mg 06/21/24 21:00 06/25/24 23:56 Atorvastatin Calcium 20 Mg Tablet PO 07/21/24 20:59 40 mg HS LIZ Administration Calcium Carbonate 600 mg 06/23/24 09:00 06/26/24 11:06 Calcium Carbonate 600 Mg Tablet NG 07/23/24 08:59 600 mg QDAY LIZ Administration Dextrose 25 ml 06/24/24 13:46 Dextrose 50%-Water Inj 50 Ml Syringe IV 07/24/24 13:45 Q15MIN PRN BG 50-70 responsive npo pt Dextrose 50 ml 06/24/24 13:46 Dextrose 50%-Water Inj 50 Ml Syringe IV 07/24/24 13:45 Q15MIN PRN BG <50 OR BG <70 & pt unresponsive Ferrous Sulfate 300 mg 06/25/24 09:00 06/26/24 11:05 Ferrous Sulfate 300 Mg/5 Ml Udc NG 07/25/24 08:59 300 mg QDAY LIZ Administration Fludrocortisone Acetate 0.2 mg 06/24/24 09:00 06/26/24 11:06 Fludrocortisone Acetate 0.1 Mg Tablet PO 07/24/24 08:59 0.2 mg QDAY LIZ Administration Glucagon 1 mg 06/24/24 13:46 Glucagon Inj 1 Mg Vial IM Q15MIN PRN BG <70, and no IV access Heparin Sodium (Porcine) 5,000 unit 06/15/24 14:00 06/19/24 14:14 Heparin Sod Inj 5000 Unit/Ml Vial SC 06/29/24 13:59 Not Given Q8HR LIZ Hydrocortisone Sodium Succinate 100 mg 06/23/24 11:15 06/26/24 15:19 Hydrocortisone Sod Succ Inj 100 Mg Vial IV 06/30/24 11:14 100 mg Q8HR LIZ Administration Furosemide 200 mg/ Sodium 100 mls @ 5 mls/hr 06/17/24 10:56 06/18/24 07:15 Chloride IV 07/17/24 10:55 0 mls/hr .Q20H LIZ Infusion Meropenem 1,000 mg/ Sodium 50 mls @ 100 mls/hr 06/25/24 06:00 06/26/24 15:18 Chloride IV 07/02/24 04:46 100 mls/hr Q8HR LIZ Administration Fentanyl Citrate 2,500 mcg in 250 mls @ 2.5 mls/hr 06/25/24 05:27 06/26/24 09:45 Sublimaze Inj 2,500 Mcg/250 Ml Bag IV 06/30/24 05:26 0 mcg/hr .Q24H PRN 0 mls/hr PER PROTOCOL Titration Protocol 25 MCG/HR Propofol 1,000 mg in 100 mls @ 0.624 mls/hr 06/25/24 05:27 06/25/24 15:00 Diprivan Ivpb IV 07/25/24 05:26 0 mcg/kg/min .Q24H PRN 0 mls/hr PER PROTOCOL Titration Protocol 5 MCG/KG/MIN Norepinephrine/Dextrose 8 mg in 250 mls @ 2.1 mls/hr 06/26/24 12:50 Levophed In D5w 8mg/250ml IV 07/15/24 22:03 .Q24H PRN PER PROTOCOL Protocol 0.05 MCG/KG/MIN Dopamine HCl/Dextrose 400 mg in 250 mls @ 6.3 mls/hr 06/26/24 12:50 Intropin In D5w Ivpb IV 07/26/24 10:30 .Q24H LIZ Protocol 7.5 MCG/KG/MIN Influenza Virus Vaccine Quadrival 0.5 ml 06/29/24 09:00 Influenza Virus Quadrivalent 0.5 Ml Syringe IMi 06/29/24 09:01 .ONCE ONE Insulin Human Lispro 0 unit 06/24/24 18:00 06/26/24 17:41 Insulin Lispro (Admelog) 1 Unit/0.01 Ml Unit SC 07/24/24 17:59 2 unit Q6HR LIZ Administration Protocol Magnesium Hydroxide 30 ml 06/15/24 13:50 Milk Of Magnesia Susp 30 Ml Udc NG 07/15/24 13:49 QDAY PRN CONSTIPATION Midodrine 5 mg 06/23/24 14:00 06/26/24 15:19 Midodrine 5 Mg Tablet PO 07/23/24 13:59 5 mg TID LIZ Administration Multivitamins/Minerals 15 ml 06/19/24 15:15 06/26/24 11:06 Multivitamin 15 Ml Udc NG 07/19/24 15:14 15 ml QDAY LIZ Administration Pantoprazole Sodium 40 mg 06/16/24 09:00 06/26/24 11:06 Pantoprazole Inj 40 Mg Vial IVP 07/16/24 08:59 40 mg QDAY LIZ Administration Pharmacy Consult 1 each 06/15/24 18:27 Pharmacy To Consult Pneumovacc XX 07/15/24 18:26 PRN PRN CONSULT Pneumococcal Polyvalent Vaccine 0.5 ml 06/29/24 09:00 Pneumoc 20-Karen Conj-Dip Crm/Pf 0.5 Ml Syringe IMi 06/29/24 09:01 .ONCE ONE Potassium Phos/Sodium Phos 1 packet 06/25/24 09:00 06/26/24 11:05 Naph,[facility] Mbdb 1 Packet (1.5 Gm) PO 06/28/24 08:59 1 packet BID LIZ Administration Sertraline HCl 100 mg 06/23/24 15:30 06/26/24 11:06 Sertraline Hcl 25 Mg Tablet NG 07/23/24 15:29 100 mg QDAY LIZ Administration Sodium Chloride 3 ml 06/25/24 08:37 06/25/24 08:55 Sodium Chloride Rt Noreen 0.9% 3 Ml Nebu INH 07/25/24 08:36 3 ml PRN PRN Administration SOLN Thiamine HCl 100 mg 06/19/24 15:15 06/26/24 11:06 Thiamine Inj 100 Mg/Ml Vial 2 Ml IV 07/19/24 15:14 100 mg QDAY LIZ Administration Plan 54 Y/O F with PMHx significant for Downs Syndrome, Schizophrenia,blindness, IBS, presents with chief complaint of AMS, last known normal 9 pm last night, admitted to ICU for septic shock requiring pressors and acute hypoxic respiratory failure requiring intubation. 06/24/24:Discussion regarding the decision maker was done by me with patient's sister Annamarie Wilson in the presence of SRIKANTH Julian. Sister Annamarie Wilson verbally stated that Ayala Putnam, who has been the [facility] assisted living [facility] the patient would be the decision maker for the patient for medical management and CODE STATUS. 06/26/2024: The patient was examined and evaluated at the bedside this morning. Overnight, patient did not had any acute overnight events. White count mildly trended down to 31.2, cultures pending, we discontinued linezolid and we will continue with meropenem at this point. Patient tapered down on dopamine to 7.5, and other pressor support discontinued. We considered for MAP to be stable if greater than 50, as demonstrated by normal lactic acid level at MAP greater than 50. The plan is to extubate the patient tomorrow morning. Neuro: #Acute encephalopathy, improving Multifactorial: hypoxia, S/p shock Low density areas in both basal ganglia seen on head CT On Presidex tapering down, withdraws to pain -EEG ordered, was significant for anoxic brain injury -Treat underlying conditions -Neuro consult placed, follow up -Atorvastatin and aspirin -Hold plavix due to low hemoglobin, hematomas #Schizophrenia #Depression Patient home medication risperidone 4mg BID, Sertraline 100mg daily, Ziprasidone 60mg BID and zolpidem 10mg PO HS -Resumed sertraline 100mg daily, we will resume other home medications by tomorrow Cardio: #Shock, improving Multifactorial: #Adrenal insufficiency complicated by hypovolemia Patient blood pressure was initially 84 by palpation. Patient requires extensive pressors, vasopressin and Levophed and high doses. Bedside echo showed good left ventricular contractility, no signs of right ventricular overload. Patient is dehydrated, has had diarrhea for the past 3 days. IVC on bedside echo was variable. Patient received 750 mL normal saline bolus and 1 L of lactated Ringer's bolus. Bedside echo showed IVC congestion, patient continues to require pressors. Patient received Albumin with Lasix drip. Patient HR and BP worsened once hydrocortisone decreased. -Titrate Levophed to maintain MAP greater than 50 -Dopamine set at 7.50 mcg/KG/MIN -Hydrocortisone 100mg IV TID -Fludracortisone 0.2mg OG daily -adequate nutrition -Treat underlying conditions #Sinus bradycardia, resolving Likely secondary to adrenal insufficiency Patient developed sinus bradycardia, dropping to low 30's. EKG only showed sinus bradycardia. Patient started on dopamine drip, unable to be titrated off. Heart rate stable in high 40's. Patient maintaining heart rate around 50. Heart rate improves when patient receives tactile stimulation. -Dopamine drip set at 7.50 mcg/KG/MIN -Fludracortisone -telemonitoring Pulm: #AHRF 2/2 aspiration pneumonia Patient has history of Down syndrome, risk for aspiration pneumonia. Bacterial and viral pneumonia both possible. Influenza panel negative. MRSA screen negative. Sedated and mechanically ventillated -Zosyn (06/16-06/18) changed to Unasyn (06/18-06/22) -Vancomycin pharmacy dosing (started 06/19-06/23) -Extubated on 06/24/24, but reintubated on 06/25 -On vancomycina 06/25-06/26 -On Meropenem 06/25- GI: #Severe protein malnutrition Patient BMI 14.9. Patient unable to provide history, per caregiver patient has good oral intake most times, has been malnourished for years due to chronic diarrhea, has not had significant weight loss recently. Patient has very little muscle mass, temporal wasting, sunken eyes. -Dietary consult, appreciate recommendations -Thiamine and multivitamin supplements -Tube feeds, advanced -daily labs -aggressive monitoring/repleating of potassium, phosphorous, magnesium #IBS Patient history of IBS. Patient had diarrhea for 3 days prior to admission, not unusual for patient. Patient has been having regular bowel movements during hospital stay. -Monitor bowel movements -Treat metabolic abnormalities as needed #Tube feeds Trickle feeds initiated, advanced to goal rate of 35 ml/hr. Renal: #ОЛЬГА, resolved DDx: Prerenal due to dehydration versus ischemic ATN Patient presented with BUN 62, creatinine 2.6, eGFR 22. No previous labs to compare to. Patient has adequate urine output. Patient appears severely dehydrated exam, has received multiple boluses of fluid, on IVF. Patient was also severely hypotensive, requiring significant pressor support. Patient recieved albumin and lasix drip, lasix held next day Holding Lasix, renal function labs normalizing. Patient continues to have good urine output. -Monitor closely, maintain euvolemia -Monitor daily labs -Avoid nephrotoxins -Monitor urine output #Hypernatremia, resolved Likely due to severe dehydration. Sodium admission is 166. Patient received 150 mL bolus normal saline in the ED. Patient was then given 1 L bolus lactated Ringer's. #Hyponatremia, resolved Endo: #Adrenal insufficiency Suspect due to chronic malnutrition. Patient arrived with hypotension, hypernatremia. Patient has been hypokalemic despite repletion and bradycardic. Clinical improvement with hydrocortisone followed by worsening when dosage reduced. -Fludracortisone increased to 0.2mg OG daily -monitor sodium and potassium #Hyperglycemia Patient has mild hyperglycemia, trending up. No history of diabetes. Likely due to steroid treatment. -Started on SSI lispro q6h -Monitor Heme: #Hematomas Hematomas in bilateral inguinal folds as complications of attempted femoral arterial line placement. -pressure dressings -demarcations to monitor for expansion -hold DVT prophylaxis #Macrocytic anemia Patient hemoglobin 9.2, MCV 114. No previous labs to compare to. No obvious signs of acute bleeding. On 06/23: Hb 6.9, transfused 1 unit PRBC Folate and B12 not depleted. -Monitor #Leukocytosis Likely due to aspiration pneumonia and glucocorticosteroid. -Monitor ID: #Fever, resolved #UTI Patient urinalysis indicated UTI: Positive leukocyte esterase, rare bacteria, 36 WBCs. Cultures grew mckeon-sensitive E. Coli. -On Unasyn-completed #Aspiration Pneumonia Patient in acute hypoxic respiratory failure, chest x-ray with left-sided consolidations. -On Unasyn (completed) -On Meropenem 06/25- Skin/MSK: #No active issues Lines: RIJ/PIV DVT prophylaxis: Held due to hematomas G.I prophylaxis: Pantoprazole Code: Full code The patient's management plan was discussed with my attending physician MD Otto Reeves MD, PGY2 Attending Provider Attestation/Addendum Patient seen and examined with above resident, Otto Mclaughlin MD. I agree with the findings, assessment, and plan of care as documented except for any differences below. Patient continues to improve post reintubation with likely adequate improvement of area from mucous plugging due to ongoing weakness and infection. Patient remains on appropriate broadened antibiotics to meropenem after reintubation as she did also have fever potentially from another source. Await follow-up/repeat cultures. Though WBC elevation and fever may be related to atelectasis and consolidation within the lung once again. Patient remains on fludrocortisone and hydrocortisone has now been discontinued. Patient now only on dopamine and will continue to titrate this down based on serial monitoring of lactate and venous gas assessment. Monitor heart rate closely as this is predominantly dosed appropriate for cardiac inotropic and chronotropic support. Maintained on tube feeds. Volume status remains stable. As patient nears attempt for re-extubation will continue to skilled nursing facility counselor with family and primary caregiver on goals of care to ensure everybody is on board with repeat attempt despite continued risk of further decline from critical illness given her limited reserve. Total critical care time: I personally spent 35 minutes for review of physiologic parameters, directing plan of care throughout the day, coordination of care, and counseling family at bedside. This is exclusive of time spent teaching of staff or performing any separate billable procedures. Patient remains in need of critical care services for acute hypoxic respiratory failure secondary to aspiration pneumonia and distributive/septic shock. Patient is at high risk for further morbidity and mortality warranting ongoing care management only available in the intensive care unit.
[2024-06-26] MEDS: ATORVASTATIN CALCIUM 20 MG TABLET 40 MG PO (21:53)
[2024-06-26] MEDS: DOPamine/D5w 400 MG IVPB 400 MG/250 ML BAG 6.3 MG IV (21:54)
[2024-06-27] VITALS (105 sets, daily range): BP systolic 71–130; BP diastolic 28–80; PULSE 65–117; RESP 0–32; TEMP 37–37.7; O2SAT 87–100
[2024-06-27] MEDS: INSULIN LISPRO (AdmeLOG) 1 UNIT/0.01 ML UNIT SC ×4 (00:11→17:56)
[2024-06-27] MEDS: ALBUTEROL/IPRATROPIUM (Duoneb) RT SOL 3 ML NEBU INH ×4 (02:22→18:42)
[2024-06-27] MEDS: ACETYLCYSTEINE SOL 20% 4 ML NEBU 3 ML INH ×4 (02:23→18:42)
[2024-06-27 05:02] LABS: Base Excess 9 (-3-3); HCO3 34 mEq/L (20-26); Inspired Oxygen, FIO2 35 %; O2 Saturation 77 % (91-98); PCO2 45 mmHg (32.0-48.0); pH, Arterial 7.48 (7.35-7.45)
[2024-06-27 05:03] LABS: Allen Test Not Performed; PO2 41 mmHg (83-108); Puncture Site Left Brachial
[2024-06-27] MEDS: HYDROCORTISONE SOD SUCC INJ 100 MG VIAL IV ×3 (05:46→21:00)
[2024-06-27] MEDS: MIDODRINE 5 MG TABLET PO ×3 (05:46→21:00)
[2024-06-27] MEDS: MEROPENEM INJ 1,000 MG in SODIUM CHLORIDE 0.9% (P) 50 ML 100 MG IV (05:46)
[2024-06-27 05:53] LABS: Lactate (Lactic Acid) 1.8 mMol/L (0.4-2.0)
[2024-06-27 06:32] LABS: Base Excess 9 (-3-3); HCO3 34 mEq/L (20-26); Inspired Oxygen, FIO2 50 %; O2 Saturation 100 % (91-98); PCO2 46 mmHg (32.0-48.0); PO2 157 mmHg (83-108); pH, Arterial 7.47 (7.35-7.45)
[2024-06-27 06:37] LABS: Allen Test Performed/OK; Puncture Site Right Brachial
[2024-06-27 06:40] LABS: Alanine Aminotransferase 107 U/L (10-49); Albumin/Globulin Ratio 1.2 (1.2-2.2); Alkaline Phosphatase 153 U/L (46-116); Anion Gap 8 (7-16); Aspartate Amino Transferase 76 U/L (0-34); BUN/Creatinine Ratio 23 Ratio (12-20); Bilirubin,Total 0.3 mg/dL (0.3-1.2); Blood Urea Nitrogen 14 mg/dL (9-23); Calcium 7.7 mg/dL (8.3-10.6); Calcium (Corrected) 8.5 mg/dL (8.5-10.1); Carbon Dioxide 32.2 mMol/L (20.0-31.0); Chloride 101 mMol/L (98-107); Creatinine (Component) 0.6 mg/dL (0.6-1.3); Estimated Creatinine Clearance 36.7 mL/min (>60); Globulin 2.6 gm/dL (2.3-3.5); Glucose 278 mg/dL (74-106); Magnesium 2.1 mg/dL (1.6-2.6); Osmolality,Calculated 291 (275-295); Phosphorous 3.4 mg/dL (2.4-5.1); Potassium 2.8 mMol/L (3.4-5.1); Sodium 141 mMol/L (136-145); Total Protein 5.6 gm/dL (5.7-8.2); eGFR > 60 See Note
[2024-06-27 07:25] LABS: Basophils % (Auto) 0 % (0-2.5); Eosinophils % (Auto) 0 % (0-10); Hematocrit 28.3 % (36.0-46.0); Hemoglobin 9.3 g/dL (12.0-16.0); Immature Granulocytes % (Auto) 1 % (0-0); Immature Granulocytes Auto 0.25 Thou/mm3 (0.00-0.00); Lymphocytes # (Auto) 0.1 Thou/mm3 (1.0-4.8); Lymphocytes % (Auto) 1 % (10-50); Mean Corpuscular HGB Conc 32.9 g/dl (31.0-37.0); Mean Corpuscular Hemoglobin 33.2 pg (25.0-35.0); Mean Corpuscular Volume 101 fL (80-100); Monocytes # (Auto) 0.4 Thou/mm3 (0.0-0.8); Monocytes % (Auto) 2 % (0-12); Neutrophils # (Auto) 20.7 Thou/mm3 (1.8-7.7); Neutrophils % (Auto) 96 % (37-80); Nucleated Red Blood Cell % 0 /100 WBC (0); Platelet Count 393 Thou/mm3 (140-440); RDW Standard Deviation 62.4 fL (36.4-46.3); White Blood Count 21.5 Thou/mm3 (3.6-11.0)
[2024-06-27] MEDS: CALCIUM CARBONATE 600 MG TABLET NG (09:37)
[2024-06-27] MEDS: ASPIRIN 81 MG CHEW PO (09:37)
[2024-06-27] MEDS: Ferrous Sulfate 300 MG/5 ML UDC NG (09:37)
[2024-06-27] MEDS: FLUDROCORTISONE ACETATE 0.1 MG TABLET 0.2 MG PO (09:38)
[2024-06-27] MEDS: MULTIVITAMIN 15 ML UDC NG (09:38)
[2024-06-27] MEDS: THIAMINE INJ 100 MG/ML VIAL 2 ML IV (09:38)
[2024-06-27] MEDS: PANTOPRAZOLE INJ 40 MG VIAL IVP (09:38)
[2024-06-27] MEDS: NAPH,KPH MBDB 1 PACKET (1.5 GM) PO ×2 (09:38→20:57)
[2024-06-27] MEDS: SERTRALINE HCL 25 MG TABLET 100 MG NG (09:38)
[2024-06-27] MEDS: POTASSIUM CHLORIDE 10% 20 MEQ/15 ML UDC 40 MEQ GT ×2 (09:40→12:08)
[2024-06-27] MEDS: ceFAZolin/D5W 2 GM IV 2 GM/100 ML BAG IV ×2 (13:05→21:00)
--- NOTE | 2024-06-27 14:51 | PD.RESPRO ---
Documentation for date of: 06/27/24 Subjective Subjective Interval history: 54 Y/O F with PMHx significant for Downs Syndrome, Schizophrenia,blindness, IBS, presents with chief complaint of AMS, last known normal 9 pm last night. Patient in unable to provide history, history taken from caregiver at bedside. Patient has had cough for about five days, noted sore throat. Patient has had diarrhea for 3 days, which is not uncommon for patient due to IBS. Patient was last seen at 9 pm last night. This morning patient was found unresponsive in her bed by caregiver. Patient is brought to ED, patient found to have low GCS, hypoxia with O2 sat 60% on nonrebreather, blood pressure 84 over palp. Patient was started on pressors, intubated. Patient had CODE BLUE, with 1 dose of epi before ROSC. Patient ventilated, started on sedation with propofol. Patient given 7 to 50 mL normal saline bolus and Rocephin in the ED. Blood urine and sputum cultures taken. 06/24/2024: The patient was examined and evaluated at the bedside this morning. The patient seemed more alert today. Patient was on pressor support with Levophed 0.08, vasopressin 0.03 and dopamine 10, breathing spontaneously on mechanical ventilation with pressure support. White count trended down to 17.4, hemoglobin 7.8, sodium stable at 124, potassium 3.4, calcium 8.3, magnesium 1.7 and we repleted magnesium 2 g IV, started on calcium carbonate 600 Mg daily, blood sugar 293, started the patient on SSI sensitive scale. 40 mEq of KCl was repleted. The phosphorus was 2.5, and we increased the dose of Neutra-Phos to 2 packs twice daily. The patient was successfully extubated to oxy mask. Discussion regarding the decision maker was done by me with patient's sister Annamarie Wilson in the presence of SRIKANTH Julian. Patient's Sister Annamarie Wilson verbally stated that Ayala Putnam, who has been the managed services consultant of the patient would be the decision maker for the patient for medical management and CODE STATUS changes. 06/25/2024: The patient was examined and evaluated at the bedside this morning. Overnight, the patient was desaturating in 80s, and was started on NC, transitioned to oxy mask, transition to BiPAP and finally was reintubated. Chest x-ray was significant for left lower lung pneumonia, likely secondary to aspiration pneumonia as patient was recently extubated, and given her underlying severe malnutrition was started on tube feed. Patient is on fentanyl drip to maintain RASS of 0, and on pressor support with Levophed, vasopressin and dopamine. She continues to be in sinus bradycardia. White count elevated to 13.5 in the setting of aspiration pneumonia, sodium continues to be 125, and she was given 500 cc of IV normal saline bolus, potassium 3.4 and was given 40 mEq of KCl. 06/26/2024: The patient was examined and evaluated at the bedside this morning. Overnight, patient did not had any acute overnight events. White count mildly trended down to 31.2, cultures pending, we discontinued linezolid and we will continue with meropenem at this point. Patient tapered down on dopamine to 7.5, and other pressor support discontinued. We considered for MAP to be stable if greater than 50, as demonstrated by normal lactic acid level at MAP greater than 50. The plan is to extubate the patient tomorrow morning. 06/27/2024: The patient was examined and evaluated at the bedside this morning again. Overnight no acute events. White count trended down to 21.5, ABG revealed pH 7.47, pCO2 46, and bicarb 34. Potassium was 2.8, and was repleted. Blood sugar this morning was 278 with mild transaminitis. We stopped dopamine drip, and the MAP goal is greater than 50. We will try for SBT tomorrow morning. Goals of care discussion was done, and Ayala Putnam who is the decision-maker recommended to proceed with tracheostomy tube if required. Exam Vital Signs Temp Pulse Resp BP Pulse Ox O2 Del Method O2 Flow Rate 98.6 F 79 19 92/42 L 97 Mechanical Ventilation 1 06/27/24 12:00 06/27/24 14:47 06/27/24 12:59 06/27/24 14:47 06/27/24 14:45 06/27/24 12:00 06/24/24 22:39 FiO2 25 06/27/24 14:45 Narrative Exam PE: Gen: Extremely cachexic. mechanically ventilated HEENT: moist mucous membranes. Left eye heavily scarred, right eye glassy. Scarring around nares. CVS: normal S1 and S2. No M/R/G. Sinus bradycardia. Resp: No rhonchi, rales, crackles or wheezing. Coarse lung sounds. Abd: soft, non-tender, non-distended. MSK: No edema. Multiple old scars/wounds on all extremities, patient has history of self-inflicted injuries, picking at skin. Hematoma at left/right inguinal folds, not expanding. Neuro: Unobatainable Objective Labs 07/04/24 05:02 07/04/24 05:02 Labs: Laboratory Results - last 24 hr 06/27/24 06/27/24 06/27/24 04:54 05:20 06:23 WBC 21.5 H D RBC 2.80 L Hgb 9.3 L Hct 28.3 L MCV 101 H MCH 33.2 MCHC 32.9 RDW Std Deviation 62.4 H Plt Count 393 Neut % (Auto) 96 H Lymph % (Auto) 1 L Harlan % (Auto) 2 Eos % (Auto) 0 Baso % (Auto) 0 Neut # (Auto) 20.7 H Lymph # (Auto) 0.1 L Harlan # (Auto) 0.4 Eos # (Auto) 0.0 Baso # (Auto) 0.0 Immature Gran # (Auto) 0.25 H Absolute Nucleated RBC 0.00 Immature Gran % 1 H Nucleated RBC % 0 Puncture Site Left Brachial Right Brachial ABG pH 7.48 H 7.47 H ABG pCO2 45 46 ABG pO2 41 L* 157 H D ABG HCO3 34 H 34 H ABG O2 Saturation 77 L 100 H ABG Base Excess 9 H 9 H FiO2 35 50 Sodium 141 D Potassium 2.8 L D Chloride 101 Carbon Dioxide 32.2 H Anion Gap 8 BUN 14 Creatinine 0.6 Estim Creat Clear Calc 36.7 L eGFR > 60 BUN/Creatinine Ratio 23 H Glucose 278 H D Calculated Osmolality 291 Lactic Acid 1.8 Calcium 7.7 L Corrected Calcium 8.5 Phosphorus 3.4 Magnesium 2.1 Total Bilirubin 0.3 AST 76 H ALT 107 H Alkaline Phosphatase 153 H Total Protein 5.6 L Albumin 3.0 L Globulin 2.6 Albumin/Globulin Ratio 1.2 ABG Interpretation ABG results: 06/15/24 06/15/24 06/15/24 11:06 14:05 17:00 ABG pH 7.23 L 7.33 L D 7.34 L ABG pCO2 69 H 56 H D 57 H ABG pO2 153 H 67 L D 65 L ABG HCO3 29 H 29 H 30 H ABG O2 Saturation 99 H 92 91 ABG Base Excess 0 3 4 H VBG pH VBG pCO2 VBG pO2 VBG Base Excess 06/16/24 06/17/24 06/18/24 04:04 04:36 04:04 ABG pH 7.35 7.42 7.53 H D ABG pCO2 57 H 54 H 57 H ABG pO2 58 L* 77 L 73 L ABG HCO3 31 H 35 H 47 H ABG O2 Saturation 88 L 96 96 ABG Base Excess 5 H 9 H 22 H VBG pH VBG pCO2 VBG pO2 VBG Base Excess 06/19/24 06/22/24 06/23/24 04:12 17:30 09:55 ABG pH 7.54 H ABG pCO2 50 H ABG pO2 61 L ABG HCO3 42 H ABG O2 Saturation 93 ABG Base Excess 18 H VBG pH 7.46 7.49 VBG pCO2 43 41 VBG pO2 98 H 39 D VBG Base Excess 6 H 7 H 06/25/24 06/26/24 06/27/24 05:04 12:08 04:54 ABG pH 7.47 H 7.48 H ABG pCO2 43 45 ABG pO2 60 L 41 L* ABG HCO3 31 H 34 H ABG O2 Saturation 92 77 L ABG Base Excess 6 H 9 H VBG pH 7.43 VBG pCO2 47 VBG pO2 35 VBG Base Excess 6 H 06/27/24 06:23 ABG pH 7.47 H ABG pCO2 46 ABG pO2 157 H D ABG HCO3 34 H ABG O2 Saturation 100 H ABG Base Excess 9 H VBG pH VBG pCO2 VBG pO2 VBG Base Excess Quality Measures Quality Measures VTE prophylaxis Assessment & Plan Assessment Current Active Medications: Generic Name Dose Route Start Last Admin Trade Name Freq PRN Reason Stop Dose Admin Acetaminophen 650 mg 06/15/24 13:50 Acetaminophen Supp 650 Mg Supp LA 07/15/24 13:49 Q4HR PRN PAIN SCALE 1-3 (mild Acetaminophen 650 mg 06/19/24 07:27 06/19/24 07:43 Acetaminophen Noreen 325 Mg/10 Ml Udc NG 07/19/24 07:26 650 mg Q4HR PRN Administration Pain Or Fever > 100.4 Protocol Acetylcysteine 3 ml 06/25/24 15:25 06/27/24 12:58 Acetylcysteine Noreen 20% 4 Ml Nebu INH 07/25/24 15:24 3 ml Q6HRRT LIZ Administration Al Hydrox/Mg Hydrox/Simethicone 30 ml 06/15/24 13:50 Mg Hyd/Al Hyd/[place] (Maalox Reg) Susp 30 Ml Udc NG 07/15/24 13:49 Q4HR PRN Heartburn or Upset Stomach Albuterol/Ipratropium 3 ml 06/25/24 15:25 06/27/24 12:59 Albuterol/Ipratropium (Duoneb) Rt Noreen 3 Ml Nebu INH 07/25/24 15:24 3 ml Q6HRRT LIZ Administration Aspirin 81 mg 06/23/24 09:00 06/27/24 09:37 Aspirin 81 Mg Chew PO 07/23/24 08:59 81 mg QDAY LIZ Administration Atorvastatin Calcium 40 mg 06/21/24 21:00 06/26/24 21:53 Atorvastatin Calcium 20 Mg Tablet PO 07/21/24 20:59 40 mg HS LIZ Administration Calcium Carbonate 600 mg 06/23/24 09:00 06/27/24 09:37 Calcium Carbonate 600 Mg Tablet NG 07/23/24 08:59 600 mg QDAY LIZ Administration Dextrose 25 ml 06/24/24 13:46 Dextrose 50%-Water Inj 50 Ml Syringe IV 07/24/24 13:45 Q15MIN PRN BG 50-70 responsive npo pt Dextrose 50 ml 06/24/24 13:46 Dextrose 50%-Water Inj 50 Ml Syringe IV 07/24/24 13:45 Q15MIN PRN BG <50 OR BG <70 & pt unresponsive Ferrous Sulfate 300 mg 06/25/24 09:00 06/27/24 09:37 Ferrous Sulfate 300 Mg/5 Ml Udc NG 07/25/24 08:59 300 mg QDAY LIZ Administration Fludrocortisone Acetate 0.2 mg 06/24/24 09:00 06/27/24 09:38 Fludrocortisone Acetate 0.1 Mg Tablet PO 07/24/24 08:59 0.2 mg QDAY LIZ Administration Glucagon 1 mg 06/24/24 13:46 Glucagon Inj 1 Mg Vial IM Q15MIN PRN BG <70, and no IV access Heparin Sodium (Porcine) 5,000 unit 06/15/24 14:00 06/19/24 14:14 Heparin Sod Inj 5000 Unit/Ml Vial SC 06/29/24 13:59 Not Given Q8HR LIZ Hydrocortisone Sodium Succinate 100 mg 06/23/24 11:15 06/27/24 14:47 Hydrocortisone Sod Succ Inj 100 Mg Vial IV 06/30/24 11:14 100 mg Q8HR LIZ Administration Furosemide 200 mg/ Sodium 100 mls @ 5 mls/hr 06/17/24 10:56 06/18/24 07:15 Chloride IV 07/17/24 10:55 0 mls/hr .Q20H LIZ Infusion Fentanyl Citrate 2,500 mcg in 250 mls @ 2.5 mls/hr 06/25/24 05:27 06/26/24 09:45 Sublimaze Inj 2,500 Mcg/250 Ml Bag IV 06/30/24 05:26 0 mcg/hr .Q24H PRN 0 mls/hr PER PROTOCOL Titration Protocol 25 MCG/HR Propofol 1,000 mg in 100 mls @ 0.624 mls/hr 06/25/24 05:27 06/25/24 15:00 Diprivan Ivpb IV 07/25/24 05:26 0 mcg/kg/min .Q24H PRN 0 mls/hr PER PROTOCOL Titration Protocol 5 MCG/KG/MIN Norepinephrine/Dextrose 8 mg in 250 mls @ 2.1 mls/hr 06/26/24 12:50 Levophed In D5w 8mg/250ml IV 07/15/24 22:03 .Q24H PRN PER PROTOCOL Protocol 0.05 MCG/KG/MIN Cefazolin Sodium 2 gm in 100 mls @ 100 mls/hr 06/27/24 11:00 06/27/24 13:05 Ancef 2gm Ivpb IV 07/02/24 10:59 100 mls/hr Q8HR LIZ Administration Dopamine HCl/Dextrose 400 mg in 250 mls @ 1.791 mls/hr 06/27/24 10:14 06/27/24 11:49 Intropin In D5w Ivpb IV 07/27/24 10:13 Not Given .Q24H LIZ Protocol 2.5 MCG/KG/MIN Influenza Virus Vaccine Quadrival 0.5 ml 06/29/24 09:00 Influenza Virus Quadrivalent 0.5 Ml Syringe IMi 06/29/24 09:01 .ONCE ONE Insulin Human Lispro 0 unit 06/24/24 18:00 06/27/24 12:08 Insulin Lispro (Admelog) 1 Unit/0.01 Ml Unit SC 07/24/24 17:59 2 unit Q6HR LIZ Administration Protocol Magnesium Hydroxide 30 ml 06/15/24 13:50 Milk Of Magnesia Susp 30 Ml Udc NG 07/15/24 13:49 QDAY PRN CONSTIPATION Midodrine 5 mg 06/23/24 14:00 06/27/24 14:47 Midodrine 5 Mg Tablet PO 07/23/24 13:59 5 mg TID LIZ Administration Multivitamins/Minerals 15 ml 06/19/24 15:15 06/27/24 09:38 Multivitamin 15 Ml Udc NG 07/19/24 15:14 15 ml QDAY LIZ Administration Pantoprazole Sodium 40 mg 06/16/24 09:00 06/27/24 09:38 Pantoprazole Inj 40 Mg Vial IVP 07/16/24 08:59 40 mg QDAY LIZ Administration Pharmacy Consult 1 each 06/15/24 18:27 Pharmacy To Consult Pneumovacc XX 07/15/24 18:26 PRN PRN CONSULT Pneumococcal Polyvalent Vaccine 0.5 ml 06/29/24 09:00 Pneumoc 20-Karen Conj-Dip Crm/Pf 0.5 Ml Syringe IMi 06/29/24 09:01 .ONCE ONE Potassium Phos/Sodium Phos 1 packet 06/25/24 09:00 06/27/24 09:38 [facility]aph,[facility] Mbdb 1 Packet (1.5 Gm) PO 06/28/24 08:59 1 packet BID LIZ Administration Sertraline HCl 100 mg 06/23/24 15:30 06/27/24 09:38 Sertraline Hcl 25 Mg Tablet NG 07/23/24 15:29 100 mg QDAY LIZ Administration Sodium Chloride 3 ml 06/25/24 08:37 06/25/24 08:55 Sodium Chloride Rt Noreen 0.9% 3 Ml Nebu INH 07/25/24 08:36 3 ml PRN PRN Administration SOLN Thiamine HCl 100 mg 06/19/24 15:15 06/27/24 09:38 Thiamine Inj 100 Mg/Ml Vial 2 Ml IV 07/19/24 15:14 100 mg QDAY LIZ Administration Plan 54 Y/O F with PMHx significant for Downs Syndrome, Schizophrenia,blindness, IBS, presents with chief complaint of AMS, last known normal 9 pm last night, admitted to ICU for septic shock requiring pressors and acute hypoxic respiratory failure requiring intubation. 06/24/24:Discussion regarding the decision maker was done by me with patient's sister Annamarie Wilson in the presence of RN She Julian. Sister Annamarie Wilson verbally stated that Ayala Putnam, who has been the managed services consultant of the patient would be the decision maker for the patient for medical management and CODE STATUS. 06/27/2024: The patient was examined and evaluated at the bedside this morning again. Overnight no acute events. White count trended down to 21.5, ABG revealed pH 7.47, pCO2 46, and bicarb 34. Potassium was 2.8, and was repleted. Blood sugar this morning was 278 with mild transaminitis. We stopped dopamine drip, and the MAP goal is greater than 50. We will try for SBT tomorrow morning. Goals of care discussion was done, and Ayala Putnam who is the decision-maker recommended to proceed with tracheostomy tube if required. Neuro: #Acute encephalopathy, improving Multifactorial: hypoxia, S/p shock Low density areas in both basal ganglia seen on head CT On Presidex tapering down, withdraws to pain -EEG ordered, was significant for anoxic brain injury -Treat underlying conditions -Neuro consult placed, follow up -Atorvastatin and aspirin -Hold plavix due to low hemoglobin, hematomas #Schizophrenia #Depression Patient home medication risperidone 4mg BID, Sertraline 100mg daily, Ziprasidone 60mg BID and zolpidem 10mg PO HS -Resumed sertraline 100mg daily, we will resume other home medications by tomorrow Cardio: #Shock, improving Multifactorial: #Adrenal insufficiency complicated by hypovolemia Patient blood pressure was initially 84 by palpation. Patient requires extensive pressors, vasopressin and Levophed and high doses. Bedside echo showed good left ventricular contractility, no signs of right ventricular overload. Patient is dehydrated, has had diarrhea for the past 3 days. IVC on bedside echo was variable. Patient received 750 mL normal saline bolus and 1 L of lactated Ringer's bolus. Bedside echo showed IVC congestion, patient continues to require pressors. Patient received Albumin with Lasix drip. Patient HR and BP worsened once hydrocortisone decreased. -Titrate Levophed to maintain MAP greater than 50 -Dopamine drip stopped. -Hydrocortisone 100mg IV TID -Fludracortisone 0.2mg OG daily -adequate nutrition -Treat underlying conditions #Sinus bradycardia, resolved Likely secondary to adrenal insufficiency Patient developed sinus bradycardia, dropping to low 30's. EKG only showed sinus bradycardia. Patient started on dopamine drip, unable to be titrated off. Heart rate stable in high 40's. Patient maintaining heart rate around 50. Heart rate improves when patient receives tactile stimulation. -Dopamine drip stopped -Fludracortisone -telemonitoring Pulm: #AHRF 08/03 MSSA pneumonia Patient has history of Down syndrome, risk for aspiration pneumonia. Bacterial and viral pneumonia both possible. Influenza panel negative. MRSA screen negative. Sedated and mechanically ventillated -Sputum culture significant for MSSA pneumonia -Zosyn (06/16-06/18) changed to Unasyn (06/18-06/22) -Vancomycin pharmacy dosing (started 06/19-06/23) -Extubated on 06/24/24, but reintubated on 06/25 -On vancomycina 06/25-06/26 -On Meropenem 06/25-06/27 -On cefazolin 2 g 3 times daily 06/27/2024- GI: #Severe protein malnutrition Patient BMI 14.9. Patient unable to provide history, per caregiver patient has good oral intake most times, has been malnourished for years due to chronic diarrhea, has not had significant weight loss recently. Patient has very little muscle mass, temporal wasting, sunken eyes. -Dietary consult, appreciate recommendations -Thiamine and multivitamin supplements -Tube feeds, advanced -daily labs -aggressive monitoring/repleating of potassium, phosphorous, magnesium #IBS Patient history of IBS. Patient had diarrhea for 3 days prior to admission, not unusual for patient. Patient has been having regular bowel movements during hospital stay. -Monitor bowel movements -Treat metabolic abnormalities as needed #Tube feeds Trickle feeds initiated, advanced to goal rate of 35 ml/hr. Renal: #ОЛЬГА, resolved DDx: Prerenal due to dehydration versus ischemic ATN Patient presented with BUN 62, creatinine 2.6, eGFR 22. No previous labs to compare to. Patient has adequate urine output. Patient appears severely dehydrated exam, has received multiple boluses of fluid, on IVF. Patient was also severely hypotensive, requiring significant pressor support. Patient recieved albumin and lasix drip, lasix held next day Holding Lasix, renal function labs normalizing. Patient continues to have good urine output. -Monitor closely, maintain euvolemia -Monitor daily labs -Avoid nephrotoxins -Monitor urine output #Hypernatremia, resolved Likely due to severe dehydration. Sodium admission is 166. Patient received 150 mL bolus normal saline in the ED. Patient was then given 1 L bolus lactated Ringer's. #Hyponatremia, resolved #Hypokalemia Potassium of 2.8 on 06/27/2024 -Repleted -Monitor and replete as needed Endo: #Adrenal insufficiency Suspect due to chronic malnutrition. Patient arrived with hypotension, hypernatremia. Patient has been hypokalemic despite repletion and bradycardic. Clinical improvement with hydrocortisone followed by worsening when dosage reduced. -Fludracortisone increased to 0.2mg OG daily -monitor sodium and potassium #Hyperglycemia Patient has mild hyperglycemia, trending up. No history of diabetes. Likely due to steroid treatment. -Started on SSI lispro q6h -Insulin Lantus 5 units at bedtime x 1 -Monitor Heme: #GPC bacteremia: Blood culture was significant for GPC bacteremia As the patient is positive for MSSA pneumonia, the likely bacteremia it is 2/2 MSSA -On cefazolin 2 g 3 times daily 06/27/2024- #Hematomas Hematomas in bilateral inguinal folds as complications of attempted femoral arterial line placement. -pressure dressings -demarcations to monitor for expansion -hold DVT prophylaxis #Macrocytic anemia Patient hemoglobin 9.2, MCV 114. No previous labs to compare to. No obvious signs of acute bleeding. On 06/23: Hb 6.9, transfused 1 unit PRBC Folate and B12 not depleted. -Monitor #Leukocytosis Likely due to aspiration pneumonia and glucocorticosteroid. -Monitor ID: #Fever, resolved #UTI Patient urinalysis indicated UTI: Positive leukocyte esterase, rare bacteria, 36 WBCs. Cultures grew mckeon-sensitive E. Coli. -On Unasyn-completed #Aspiration Pneumonia Patient in acute hypoxic respiratory failure, chest x-ray with left-sided consolidations. -On Unasyn (completed) -On Meropenem 06/25-06/27 -On cefazolin 2 g 3 times daily for GPC bacteremia and MSSA pneumonia. Skin/MSK: #No active issues Lines: RIJ/PIV DVT prophylaxis: Held due to hematomas G.I prophylaxis: Pantoprazole Code: Full code The patient's management plan was discussed with my attending physician MD Otto Reeves MD, PGY2 Attending Provider Attestation/Addendum Patient seen and examined with above resident, Otto Mclaughlin MD. I agree with the findings, assessment, and plan of care as documented except for any differences below. Patient continues to slowly improve from recurrent likely aspiration event that led to need for reintubation within 24 hours of successful extubation. Patient's mental status seems to be at baseline and she is responding to her family and caregivers appropriately per report. Patient nearing ability to successfully wean once again. Today we will focus on elevating need for chronotropic and vasopressor support. Patient continues to improve on antibiotic regimen with cefazolin for MSSA bacteremia. Requirement likely in the lung setting of positive pressure ventilation and treatment of infection. Will further optimize electrolyte status and nutrition with tube feeds. Adequate perfusion and maintenance of blood pressure with use of midodrine and fludrocortisone for possible relative adrenal insufficiency, will work on elimination of need for hydrocortisone. Residents did clarify goals of care with family including the potential need for tracheostomy if the patient should fail repeat extubation in the next 24 to 48 hours. Patient's overall prognosis remains guarded given her longstanding history of severe protein calorie malnutrition and developmental delay. Total critical care time: I personally spent 35 minutes for review of physiologic parameters, directing plan of care throughout the day, and counseling patient's family at bedside. This is exclusive of time spent teaching housestaff or performing any separate billable procedures. Patient continues to require critical care for acute hypoxic respiratory failure in the setting of repeat aspiration pneumonia and now MSSA bacteremia with resolving septic shock and chronotropic insufficiency. Suspicion for relative adrenal insufficiency as well due to limited nutritional status. Patient remains at high risk for further morbidity and mortality warranting ongoing care and monitoring only available in the intensive care unit.
--- NOTE | 2024-06-27 18:06 | PD.RESPRO ---
Documentation for date of: 06/27/24 Subjective Subjective Interval history: No overnight events, patient remains intubated. EEG showed diffuse slowing suggestive of hypoxic brain injury, prognosis is poor. We will sign off case. Exam Vital Signs Temp Pulse Resp BP Pulse Ox O2 Del Method O2 Flow Rate 99.3 F 79 19 87/37 L 92 L Mechanical Ventilation 1 06/27/24 16:00 06/27/24 17:00 06/27/24 12:59 06/27/24 17:00 06/27/24 17:00 06/27/24 16:00 06/24/24 22:39 FiO2 25 06/27/24 16:00 Narrative Exam PE: Gen: Extremely cachexic. HEENT: Dry mucous membranes. Left eye heavily scarred, right eye glassy. Scarring around nares. CVS: normal S1 and S2. No M/R/G. Resp: No rhonchi, rales, crackles or wheezing. Coarse lung sounds. Abd: soft, non-tender, non-distended. MSK: No edema. Multiple old scars/wounds on all extremities, patient has history of self-inflicted injuries, picking at skin. Hematoma at left/right inguinal folds, not expanding. Neuro: Unobatainable. Opens eyes to audible stimuli. Withdraws from pain. Objective Labs 06/28/24 03:30 06/28/24 03:30 Labs: Laboratory Results - last 24 hr 06/27/24 06/27/24 06/27/24 04:54 05:20 06:23 WBC 21.5 H D RBC 2.80 L Hgb 9.3 L Hct 28.3 L MCV 101 H MCH 33.2 MCHC 32.9 RDW Std Deviation 62.4 H Plt Count 393 Neut % (Auto) 96 H Lymph % (Auto) 1 L [place] % (Auto) 2 Eos % (Auto) 0 Baso % (Auto) 0 Neut # (Auto) 20.7 H Lymph # (Auto) 0.1 L [place] # (Auto) 0.4 Eos # (Auto) 0.0 Baso # (Auto) 0.0 Immature Gran # (Auto) 0.25 H Absolute Nucleated RBC 0.00 Immature Gran % 1 H Nucleated RBC % 0 Puncture Site Left Brachial Right Brachial ABG pH 7.48 H 7.47 H ABG pCO2 45 46 ABG pO2 41 L* 157 H D ABG HCO3 34 H 34 H ABG O2 Saturation 77 L 100 H ABG Base Excess 9 H 9 H FiO2 35 50 Sodium 141 D Potassium 2.8 L D Chloride 101 Carbon Dioxide 32.2 H Anion Gap 8 BUN 14 Creatinine 0.6 Estim Creat Clear Calc 36.7 L eGFR > 60 BUN/Creatinine Ratio 23 H Glucose 278 H D Calculated Osmolality 291 Lactic Acid 1.8 Calcium 7.7 L Corrected Calcium 8.5 Phosphorus 3.4 Magnesium 2.1 Total Bilirubin 0.3 AST 76 H ALT 107 H Alkaline Phosphatase 153 H Total Protein 5.6 L Albumin 3.0 L Globulin 2.6 Albumin/Globulin Ratio 1.2 ABG Interpretation ABG results: 06/15/24 06/15/24 06/15/24 11:06 14:05 17:00 ABG pH 7.23 L 7.33 L D 7.34 L ABG pCO2 69 H 56 H D 57 H ABG pO2 153 H 67 L D 65 L ABG HCO3 29 H 29 H 30 H ABG O2 Saturation 99 H 92 91 ABG Base Excess 0 3 4 H VBG pH VBG pCO2 VBG pO2 VBG Base Excess 06/16/24 06/17/24 06/18/24 04:04 04:36 04:04 ABG pH 7.35 7.42 7.53 H D ABG pCO2 57 H 54 H 57 H ABG pO2 58 L* 77 L 73 L ABG HCO3 31 H 35 H 47 H ABG O2 Saturation 88 L 96 96 ABG Base Excess 5 H 9 H 22 H VBG pH VBG pCO2 VBG pO2 VBG Base Excess 06/19/24 06/22/24 06/23/24 04:12 17:30 09:55 ABG pH 7.54 H ABG pCO2 50 H ABG pO2 61 L ABG HCO3 42 H ABG O2 Saturation 93 ABG Base Excess 18 H VBG pH 7.46 7.49 VBG pCO2 43 41 VBG pO2 98 H 39 D VBG Base Excess 6 H 7 H 06/25/24 06/26/24 06/27/24 05:04 12:08 04:54 ABG pH 7.47 H 7.48 H ABG pCO2 43 45 ABG pO2 60 L 41 L* ABG HCO3 31 H 34 H ABG O2 Saturation 92 77 L ABG Base Excess 6 H 9 H VBG pH 7.43 VBG pCO2 47 VBG pO2 35 VBG Base Excess 6 H 06/27/24 06:23 ABG pH 7.47 H ABG pCO2 46 ABG pO2 157 H D ABG HCO3 34 H ABG O2 Saturation 100 H ABG Base Excess 9 H VBG pH VBG pCO2 VBG pO2 VBG Base Excess Quality Measures Quality Measures VTE prophylaxis Assessment & Plan Assessment Current Active Medications: Generic Name Dose Route Start Last Admin Trade Name Freq PRN Reason Stop Dose Admin Acetaminophen 650 mg 06/15/24 13:50 Acetaminophen Supp 650 Mg Supp DE 07/15/24 13:49 Q4HR PRN PAIN SCALE 1-3 (mild Acetaminophen 650 mg 06/19/24 07:27 06/19/24 07:43 Acetaminophen Noreen 325 Mg/10 Ml Udc NG 07/19/24 07:26 650 mg Q4HR PRN Administration Pain Or Fever > 100.4 Protocol Acetylcysteine 3 ml 06/25/24 15:25 06/27/24 12:58 Acetylcysteine Noreen 20% 4 Ml Nebu INH 07/25/24 15:24 3 ml Q6HRRT LIZ Administration Al Hydrox/Mg Hydrox/Simethicone 30 ml 06/15/24 13:50 Mg Hyd/Al Hyd/[place] (Maalox Reg) Susp 30 Ml Udc NG 07/15/24 13:49 Q4HR PRN Heartburn or Upset Stomach Albuterol/Ipratropium 3 ml 06/25/24 15:25 06/27/24 12:59 Albuterol/Ipratropium (Duoneb) Rt Noreen 3 Ml Nebu INH 07/25/24 15:24 3 ml Q6HRRT LIZ Administration Aspirin 81 mg 06/23/24 09:00 06/27/24 09:37 Aspirin 81 Mg Chew PO 07/23/24 08:59 81 mg QDAY LIZ Administration Atorvastatin Calcium 40 mg 06/21/24 21:00 06/26/24 21:53 Atorvastatin Calcium 20 Mg Tablet PO 07/21/24 20:59 40 mg HS LIZ Administration Calcium Carbonate 600 mg 06/23/24 09:00 06/27/24 09:37 Calcium Carbonate 600 Mg Tablet NG 07/23/24 08:59 600 mg QDAY LIZ Administration Dextrose 25 ml 06/24/24 13:46 Dextrose 50%-Water Inj 50 Ml Syringe IV 07/24/24 13:45 Q15MIN PRN BG 50-70 responsive npo pt Dextrose 50 ml 06/24/24 13:46 Dextrose 50%-Water Inj 50 Ml Syringe IV 07/24/24 13:45 Q15MIN PRN BG <50 OR BG <70 & pt unresponsive Ferrous Sulfate 300 mg 06/25/24 09:00 06/27/24 09:37 Ferrous Sulfate 300 Mg/5 Ml Udc NG 07/25/24 08:59 300 mg QDAY LIZ Administration Fludrocortisone Acetate 0.2 mg 06/24/24 09:00 06/27/24 09:38 Fludrocortisone Acetate 0.1 Mg Tablet PO 07/24/24 08:59 0.2 mg QDAY LIZ Administration Glucagon 1 mg 06/24/24 13:46 Glucagon Inj 1 Mg Vial IM Q15MIN PRN BG <70, and no IV access Heparin Sodium (Porcine) 5,000 unit 06/15/24 14:00 06/19/24 14:14 Heparin Sod Inj 5000 Unit/Ml Vial SC 06/29/24 13:59 Not Given Q8HR LIZ Hydrocortisone Sodium Succinate 100 mg 06/23/24 11:15 06/27/24 14:47 Hydrocortisone Sod Succ Inj 100 Mg Vial IV 06/30/24 11:14 100 mg Q8HR LIZ Administration Furosemide 200 mg/ Sodium 100 mls @ 5 mls/hr 06/17/24 10:56 06/18/24 07:15 Chloride IV 07/17/24 10:55 0 mls/hr .Q20H LIZ Infusion Fentanyl Citrate 2,500 mcg in 250 mls @ 2.5 mls/hr 06/25/24 05:27 06/26/24 09:45 Sublimaze Inj 2,500 Mcg/250 Ml Bag IV 06/30/24 05:26 0 mcg/hr .Q24H PRN 0 mls/hr PER PROTOCOL Titration Protocol 25 MCG/HR Propofol 1,000 mg in 100 mls @ 0.624 mls/hr 06/25/24 05:27 06/25/24 15:00 Diprivan Ivpb IV 07/25/24 05:26 0 mcg/kg/min .Q24H PRN 0 mls/hr PER PROTOCOL Titration Protocol 5 MCG/KG/MIN Norepinephrine/Dextrose 8 mg in 250 mls @ 2.1 mls/hr 06/26/24 12:50 Levophed In D5w 8mg/250ml IV 07/15/24 22:03 .Q24H PRN PER PROTOCOL Protocol 0.05 MCG/KG/MIN Cefazolin Sodium 2 gm in 100 mls @ 100 mls/hr 06/27/24 11:00 06/27/24 13:05 Ancef 2gm Ivpb IV 07/02/24 10:59 100 mls/hr Q8HR LIZ Administration Influenza Virus Vaccine Quadrival 0.5 ml 06/29/24 09:00 Influenza Virus Quadrivalent 0.5 Ml Syringe IMi 06/29/24 09:01 .ONCE ONE Insulin Glargine 5 unit 06/27/24 21:00 Insulin Glargine (Lantus) 5 Unit/0.05 Ml (Per 5 Units) SC 06/27/24 21:01 X1 ONE Insulin Human Lispro 0 unit 06/24/24 18:00 06/27/24 17:56 Insulin Lispro (Admelog) 1 Unit/0.01 Ml Unit SC 07/24/24 17:59 2 unit Q6HR LIZ Administration Protocol Magnesium Hydroxide 30 ml 06/15/24 13:50 Milk Of Magnesia Susp 30 Ml Udc NG 07/15/24 13:49 QDAY PRN CONSTIPATION Midodrine 5 mg 06/23/24 14:00 06/27/24 14:47 Midodrine 5 Mg Tablet PO 07/23/24 13:59 5 mg TID LIZ Administration Multivitamins/Minerals 15 ml 06/19/24 15:15 06/27/24 09:38 Multivitamin 15 Ml Udc NG 07/19/24 15:14 15 ml QDAY LIZ Administration Pantoprazole Sodium 40 mg 06/16/24 09:00 06/27/24 09:38 Pantoprazole Inj 40 Mg Vial IVP 07/16/24 08:59 40 mg QDAY LIZ Administration Pharmacy Consult 1 each 06/15/24 18:27 Pharmacy To Consult Pneumovacc XX 07/15/24 18:26 PRN PRN CONSULT Pneumococcal Polyvalent Vaccine 0.5 ml 06/29/24 09:00 Pneumoc 20-Karen Conj-Dip Crm/Pf 0.5 Ml Syringe IMi 06/29/24 09:01 .ONCE ONE Potassium Phos/Sodium Phos 1 packet 06/25/24 09:00 06/27/24 09:38 [place] Mbdb 1 Packet (1.5 Gm) PO 06/28/24 08:59 1 packet BID LIZ Administration Sertraline HCl 100 mg 06/23/24 15:30 06/27/24 09:38 Sertraline Hcl 25 Mg Tablet NG 07/23/24 15:29 100 mg QDAY LIZ Administration Sodium Chloride 3 ml 06/25/24 08:37 06/25/24 08:55 Sodium Chloride Rt Nore[place] 0.9% 3 Ml Nebu INH 07/25/24 08:36 3 ml PRN PRN Administration SOLN Thiamine HCl 100 mg 06/19/24 15:15 06/27/24 09:38 Thiamine Inj 100 Mg/Ml Vial 2 Ml IV 07/19/24 15:14 100 mg QDAY LIZ Administration Plan 54 Y/O F with PMHx significant for Downs Syndrome, Schizophrenia,blindness, IBS, who was brought becuase of acute encephalopathy and was found to have septic shock and acute hypoxic respiratory failure requiring intubation. #Acute encephalopathy -Head CT: Negative for acute hemorrhage, mass effect or midline shift. Acute appearing low density areas in both basal ganglia, axial images 21 and 22, seen with ischemic or anoxic change -EEG showed diffuse slowing suggestive of anoxic brain injury -Poor prognosis -We will sign off case Thank you for allowing us to participate in patient's care. Patient's care discussed with attending physician, Dr Heide Deng MD PGY2 Attending Provider Attestation/Addendum Patient was seen and examined at the bedside and agreed with resident's findings, assessment and plan of care.
[2024-06-27] MEDS: INSULIN GLARGINE (Lantus) 5 UNIT/0.05 ML (PER 5 UNITS) SC (20:57)
[2024-06-27] MEDS: ATORVASTATIN CALCIUM 20 MG TABLET 40 MG PO (20:57)
[2024-06-28] VITALS (105 sets, daily range): BP systolic 51–137; BP diastolic 25–88; PULSE 51–153; RESP 9–36; TEMP 37.2–37.7; O2SAT 81–100; BMI 16.4
[2024-06-28] MEDS: INSULIN LISPRO (AdmeLOG) 1 UNIT/0.01 ML UNIT SC ×4 (00:24→23:49)
--- NOTE | 2024-06-28 01:35 | EKG_ITS ---
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 : 1970 Requested By: Simona Sanchez Order Number: [id number] Reading MD: Simona Sanchez Measurements Intervals [place] Rate: 141 P: [place]: QRS: 91 QRSD: 89 T: 0 QT: 160 QTc: 245 Interpretive Statements ATRIAL FIBRILLATION WITH RAPID VENTRICULAR RESPONSE WITH ABERRANT CONDUCTION OR VENTRICULAR PREMATURE COMPLEXES BORDERLINE RIGHT AXIS DEVIATION SEPTAL MYOCARDIAL INFARCTION , OF INDETERMINATE AGE Compared to ECG 06/16/2024 10:12:53 Ventricular premature complex(es) now present Aberrant conduction of supraventricular beat(s) now present Sinus bradycardia no longer present Myocardial infarct finding still present /store/S0/[id number].pdf
[2024-06-28] MEDS: ALBUTEROL/IPRATROPIUM (Duoneb) RT SOL 3 ML NEBU INH ×4 (01:55→19:01)
[2024-06-28] MEDS: ACETYLCYSTEINE SOL 20% 4 ML NEBU 3 ML INH ×4 (01:55→19:01)
[2024-06-28] MEDS: LORazepam 2 MG/ML VIAL 0.5 MG IVP (02:14)
[2024-06-28 02:21] LABS: Anion Gap 5 (7-16); BUN/Creatinine Ratio 32 Ratio (12-20); Blood Urea Nitrogen 16 mg/dL (9-23); Calcium 8.2 mg/dL (8.3-10.6); Carbon Dioxide 34.6 mMol/L (20.0-31.0); Chloride 104 mMol/L (98-107); Creatinine (Component) 0.5 mg/dL (0.6-1.3); Glucose 128 mg/dL (74-106); Magnesium 1.8 mg/dL (1.6-2.6); Osmolality,Calculated 290 (275-295); Phosphorous 2.2 mg/dL (2.4-5.1); Potassium 3.9 mMol/L (3.4-5.1); Sodium 144 mMol/L (136-145); eGFR > 60 See Note
[2024-06-28] MEDS: Norepinephrine/D5W 8mg/250ml 8 MG/250 ML BAG 2.1 MG IV (02:53)
[2024-06-28 03:44] LABS: Basophils % (Auto) 0 % (0-2.5); Eosinophils % (Auto) 0 % (0-10); Immature Granulocytes % (Auto) 1 % (0-0); Immature Granulocytes Auto 0.22 Thou/mm3 (0.00-0.00); Lymphocytes # (Auto) 0.2 Thou/mm3 (1.0-4.8); Lymphocytes % (Auto) 1 % (10-50); Mean Corpuscular HGB Conc 32.7 g/dl (31.0-37.0); Mean Corpuscular Hemoglobin 33.3 pg (25.0-35.0); Mean Corpuscular Volume 102 fL (80-100); Monocytes # (Auto) 0.6 Thou/mm3 (0.0-0.8); Monocytes % (Auto) 3 % (0-12); Neutrophils # (Auto) 17.7 Thou/mm3 (1.8-7.7); Neutrophils % (Auto) 94 % (37-80); Nucleated Red Blood Cell % 0 /100 WBC (0); Platelet Count 381 Thou/mm3 (140-440); RDW Standard Deviation 67.6 fL (36.4-46.3); Red Blood Count 2.16 Miln/mm3 (4.00-5.20); White Blood Count 18.8 Thou/mm3 (3.6-11.0)
[2024-06-28 03:51] LABS: Hemoglobin 7.2 g/dL (12.0-16.0)
[2024-06-28] MEDS: POT PHOS 15 mMol in NS 250 ML 15 MMOL/250 ML BAG 62.5 MMOL IV (04:05)
[2024-06-28 04:16] LABS: Alanine Aminotransferase 139 U/L (10-49); Albumin, Serum 2.9 gm/dL (3.5-5.0); Albumin/Globulin Ratio 1.2 (1.2-2.2); Alkaline Phosphatase 156 U/L (46-116); Anion Gap 3 (7-16); Aspartate Amino Transferase 114 U/L (0-34); BUN/Creatinine Ratio 32 Ratio (12-20); Bilirubin,Total 0.2 mg/dL (0.3-1.2); Blood Urea Nitrogen 16 mg/dL (9-23); Calcium (Corrected) 8.9 mg/dL (8.5-10.1); Chloride 105 mMol/L (98-107); Creatinine (Component) 0.5 mg/dL (0.6-1.3); Globulin 2.4 gm/dL (2.3-3.5); Glucose 85 mg/dL (74-106); Magnesium 1.8 mg/dL (1.6-2.6); Osmolality,Calculated 285 (275-295); Phosphorous 2.1 mg/dL (2.4-5.1); Potassium 3.8 mMol/L (3.4-5.1); Sodium 143 mMol/L (136-145); Total Protein 5.3 gm/dL (5.7-8.2); eGFR > 60 See Note
[2024-06-28 04:18] LABS: Troponin I 0.131 ng/mL (0.0-0.045)
[2024-06-28 04:42] LABS: Base Excess 13 (-3-3); HCO3 36 mEq/L (20-26); Inspired Oxygen, FIO2 30 %; O2 Saturation 98 % (91-98); PCO2 41 mmHg (32.0-48.0); PO2 78 mmHg (83-108); pH, Arterial 7.55 (7.35-7.45)
[2024-06-28 04:44] LABS: Allen Test Performed/OK; Puncture Site Left Brachial
[2024-06-28] MEDS: MIDODRINE 5 MG TABLET PO (05:40)
[2024-06-28] MEDS: HYDROCORTISONE SOD SUCC INJ 100 MG VIAL IV ×3 (05:40→21:12)
[2024-06-28] MEDS: ceFAZolin/D5W 2 GM IV 2 GM/100 ML BAG IV ×3 (05:40→21:12)
[2024-06-28] MEDS: PANTOPRAZOLE INJ 40 MG VIAL IVP (09:09)
[2024-06-28] MEDS: THIAMINE INJ 100 MG/ML VIAL 2 ML IV (09:09)
[2024-06-28] MEDS: Ferrous Sulfate 300 MG/5 ML UDC NG (09:10)
[2024-06-28] MEDS: MULTIVITAMIN 15 ML UDC NG (09:10)
[2024-06-28] MEDS: FLUDROCORTISONE ACETATE 0.1 MG TABLET 0.2 MG PO (09:10)
[2024-06-28] MEDS: CALCIUM CARBONATE 600 MG TABLET NG (09:10)
[2024-06-28] MEDS: ASPIRIN 81 MG CHEW PO (09:10)
[2024-06-28] MEDS: SERTRALINE HCL 25 MG TABLET 100 MG NG (09:42)
--- NOTE | 2024-06-28 11:39 | PC.NURSE ---
Dr. Cai notified that patients brown port not flushing after attempting repositioning, unable to draw VBG, order received for heprin
[2024-06-28] MEDS: NAPH,KPH MBDB 1 PACKET (1.5 GM) PO (11:41)
[2024-06-28] MEDS: HEPARIN SOD LOCK SYR 100 UNIT/ML 500 UNIT IV (12:00)
--- NOTE | 2024-06-28 13:00 | PC.NURSE ---
at [address] Pete, Tube feeds off and to suction before extubation
[2024-06-28 13:58] LABS: Base Excess, Venous 13 (-3-3); O2 Saturation, Venous 81 % (96-97); PCO2, Venous 41 mmHg (36-56); PO2, Venous 41 mmHg (15-58); pH, Venous 7.56 (7.33-7.66)
--- NOTE | 2024-06-28 17:37 | PD.RESPRO ---
Documentation for date of: 06/28/24 Subjective Subjective Interval history: 54 Y/O F with PMHx significant for Downs Syndrome, Schizophrenia,blindness, IBS, presents with chief complaint of AMS, last known normal 9 pm last night. Patient in unable to provide history, history taken from caregiver at bedside. Patient has had cough for about five days, noted sore throat. Patient has had diarrhea for 3 days, which is not uncommon for patient due to IBS. Patient was last seen at 9 pm last night. This morning patient was found unresponsive in her bed by caregiver. Patient is brought to ED, patient found to have low GCS, hypoxia with O2 sat 60% on nonrebreather, blood pressure 84 over palp. Patient was started on pressors, intubated. Patient had CODE BLUE, with 1 dose of epi before ROSC. Patient ventilated, started on sedation with propofol. Patient given 7 to 50 mL normal saline bolus and Rocephin in the ED. Blood urine and sputum cultures taken. 06/24/2024: The patient was examined and evaluated at the bedside this morning. The patient seemed more alert today. Patient was on pressor support with Levophed 0.08, vasopressin 0.03 and dopamine 10, breathing spontaneously on mechanical ventilation with pressure support. White count trended down to 17.4, hemoglobin 7.8, sodium stable at 124, potassium 3.4, calcium 8.3, magnesium 1.7 and we repleted magnesium 2 g IV, started on calcium carbonate 600 Mg daily, blood sugar 293, started the patient on SSI sensitive scale. 40 mEq of KCl was repleted. The phosphorus was 2.5, and we increased the dose of Neutra-Phos to 2 packs twice daily. The patient was successfully extubated to oxy mask. Discussion regarding the decision maker was done by me with patient's sister Annamarie Wilson in the presence of SRIKANTH Julian. Patient's Sister Annamarie Wilson verbally stated that Ayala Putnam, who has been the psychotherapist social worker of the patient would be the decision maker for the patient for medical management and CODE STATUS changes. 06/25/2024: The patient was examined and evaluated at the bedside this morning. Overnight, the patient was desaturating in 80s, and was started on NC, transitioned to oxy mask, transition to BiPAP and finally was reintubated. Chest x-ray was significant for left lower lung pneumonia, likely secondary to aspiration pneumonia as patient was recently extubated, and given her underlying severe malnutrition was started on tube feed. Patient is on fentanyl drip to maintain RASS of 0, and on pressor support with Levophed, vasopressin and dopamine. She continues to be in sinus bradycardia. White count elevated to 13.5 in the setting of aspiration pneumonia, sodium continues to be 125, and she was given 500 cc of IV normal saline bolus, potassium 3.4 and was given 40 mEq of KCl. 06/26/2024: The patient was examined and evaluated at the bedside this morning. Overnight, patient did not had any acute overnight events. White count mildly trended down to 31.2, cultures pending, we discontinued linezolid and we will continue with meropenem at this point. Patient tapered down on dopamine to 7.5, and other pressor support discontinued. We considered for MAP to be stable if greater than 50, as demonstrated by normal lactic acid level at MAP greater than 50. The plan is to extubate the patient tomorrow morning. 06/27/2024: The patient was examined and evaluated at the bedside this morning again. Overnight no acute events. White count trended down to 21.5, ABG revealed pH 7.47, pCO2 46, and bicarb 34. Potassium was 2.8, and was repleted. Blood sugar this morning was 278 with mild transaminitis. We stopped dopamine drip, and the MAP goal is greater than 50. We will try for SBT tomorrow morning. Goals of care discussion was done, and Ayala Putnam who is the decision-maker recommended to proceed with tracheostomy tube if required. 06/28/2024: Patient seen and examined at bedside. Overnight patient became agitated with worsening sinus tachycardia, received 0.5 mg Ativan x 1, after which patient became hypotensive requiring Levophed to be resumed. Levophed titrate down to 0.03, held there to maintain MAP while patient is extubated. On exam patient is more active, opening eyes and moving all extremities. Patient tolerated pressure support well, with successfully extubated without complications. Patient strict n.p.o. VBG showed pH 7.56, pCO2 41, pO2 41. Lactate 2.0. Phosphorus 2.1, received 15 mmol potassium phosphate. Central line removed, Levophed transferred to peripheral IV. Exam Vital Signs Temp Pulse Resp BP Pulse Ox O2 Del Method O2 Flow Rate 99.0 F 68 22 H 84/55 L 93 L Nasal Cannula 2 06/28/24 16:00 06/28/24 17:00 06/28/24 17:00 06/28/24 17:00 06/28/24 17:00 06/28/24 16:00 06/28/24 16:00 FiO2 30 06/28/24 12:08 Narrative Exam PE: Gen: Extremely cachexic. HEENT: Dry mucous membranes. Left eye heavily scarred, right eye glassy. Scarring around nares. CVS: normal S1 and S2. No M/R/G. Resp: No rhonchi, rales, crackles or wheezing. Coarse lung sounds. Abd: soft, non-tender, non-distended. MSK: No edema. Multiple old scars/wounds on all extremities, patient has history of self-inflicted injuries, picking at skin. Hematoma at left/right inguinal folds, not expanding. Neuro: Unobatainable. Opens eyes to audible stimuli. Withdraws from pain. Objective Labs 07/04/24 05:02 07/04/24 05:02 Labs: Laboratory Results - last 24 hr 06/28/24 06/28/24 06/28/24 01:57 03:30 04:27 WBC 18.8 H RBC 2.16 L Hgb 7.2 L D Hct 22.0 L MCV 102 H MCH 33.3 MCHC 32.7 RDW Std Deviation 67.6 H Plt Count 381 Neut % (Auto) 94 H Lymph % (Auto) 1 L [place] % (Auto) 3 Eos % (Auto) 0 Baso % (Auto) 0 Neut # (Auto) 17.7 H Lymph # (Auto) 0.2 L [place] # (Auto) 0.6 Eos # (Auto) 0.0 Baso # (Auto) 0.0 Immature Gran # (Auto) 0.22 H Absolute Nucleated RBC 0.00 Immature Gran % 1 H Nucleated RBC % 0 Puncture Site Left Brachial ABG pH 7.55 H ABG pCO2 41 ABG pO2 78 L D ABG HCO3 36 H ABG O2 Saturation 98 ABG Base Excess 13 H VBG pH VBG pCO2 VBG pO2 VBG O2 Sat (George) VBG Base Excess FiO2 30 Sodium 144 143 Potassium 3.9 D 3.8 Chloride 104 105 Carbon Dioxide 34.6 H 35.0 H Anion Gap 5 L 3 L BUN 16 16 Creatinine 0.5 L 0.5 L Estim Creat Clear Calc 44.0 L 44.0 L eGFR > 60 > 60 BUN/Creatinine Ratio 32 H 32 H Glucose 128 H D 85 Calculated Osmolality 290 285 Lactic Acid Calcium 8.2 L 8.0 L Corrected Calcium 8.9 Phosphorus 2.2 L 2.1 L Magnesium 1.8 1.8 Total Bilirubin 0.2 L AST 114 H ALT 139 H Alkaline Phosphatase 156 H Troponin I 0.131 H* Total Protein 5.3 L Albumin 2.9 L Globulin 2.4 Albumin/Globulin Ratio 1.2 06/28/24 13:19 WBC RBC Hgb Hct MCV MCH MCHC RDW Std Deviation Plt Count Neut % (Auto) Lymph % (Auto) [place] % (Auto) Eos % (Auto) Baso % (Auto) Neut # (Auto) Lymph # (Auto) [place] # (Auto) Eos # (Auto) Baso # (Auto) Immature Gran # (Auto) Absolute Nucleated RBC Immature Gran % Nucleated RBC % Puncture Site ABG pH ABG pCO2 ABG pO2 ABG HCO3 ABG O2 Saturation ABG Base Excess VBG pH 7.56 VBG pCO2 41 VBG pO2 41 VBG O2 Sat (George) 81 L VBG Base Excess 13 H FiO2 Sodium Potassium Chloride Carbon Dioxide Anion Gap BUN Creatinine Estim Creat Clear Calc eGFR BUN/Creatinine Ratio Glucose Calculated Osmolality Lactic Acid 2.0 Calcium Corrected Calcium Phosphorus Magnesium Total Bilirubin AST ALT Alkaline Phosphatase Troponin I Total Protein Albumin Globulin Albumin/Globulin Ratio ABG Interpretation ABG results: 06/15/24 06/15/24 06/15/24 11:06 14:05 17:00 ABG pH 7.23 L 7.33 L D 7.34 L ABG pCO2 69 H 56 H D 57 H ABG pO2 153 H 67 L D 65 L ABG HCO3 29 H 29 H 30 H ABG O2 Saturation 99 H 92 91 ABG Base Excess 0 3 4 H VBG pH VBG pCO2 VBG pO2 VBG Base Excess 06/16/24 06/17/24 06/18/24 04:04 04:36 04:04 ABG pH 7.35 7.42 7.53 H D ABG pCO2 57 H 54 H 57 H ABG pO2 58 L* 77 L 73 L ABG HCO3 31 H 35 H 47 H ABG O2 Saturation 88 L 96 96 ABG Base Excess 5 H 9 H 22 H VBG pH VBG pCO2 VBG pO2 VBG Base Excess 06/19/24 06/22/24 06/23/24 04:12 17:30 09:55 ABG pH 7.54 H ABG pCO2 50 H ABG pO2 61 L ABG HCO3 42 H ABG O2 Saturation 93 ABG Base Excess 18 H VBG pH 7.46 7.49 VBG pCO2 43 41 VBG pO2 98 H 39 D VBG Base Excess 6 H 7 H 06/25/24 06/26/24 06/27/24 05:04 12:08 04:54 ABG pH 7.47 H 7.48 H ABG pCO2 43 45 ABG pO2 60 L 41 L* ABG HCO3 31 H 34 H ABG O2 Saturation 92 77 L ABG Base Excess 6 H 9 H VBG pH 7.43 VBG pCO2 47 VBG pO2 35 VBG Base Excess 6 H 06/27/24 06/28/24 06/28/24 06:23 04:27 13:19 ABG pH 7.47 H 7.55 H ABG pCO2 46 41 ABG pO2 157 H D 78 L D ABG HCO3 34 H 36 H ABG O2 Saturation 100 H 98 ABG Base Excess 9 H 13 H VBG pH 7.56 VBG pCO2 41 VBG pO2 41 VBG Base Excess 13 H Quality Measures Quality Measures VTE prophylaxis Assessment & Plan Assessment Current Active Medications: Generic Name Dose Route Start Last Admin Trade Name Freq PRN Reason Stop Dose Admin Acetaminophen 650 mg 06/15/24 13:50 Acetaminophen Supp 650 Mg Supp NV 07/15/24 13:49 Q4HR PRN PAIN SCALE 1-3 (mild Acetaminophen 650 mg 06/19/24 07:27 06/19/24 07:43 Acetaminophen Noreen 325 Mg/10 Ml Udc NG 07/19/24 07:26 650 mg Q4HR PRN Administration Pain Or Fever > 100.4 Protocol Acetylcysteine 3 ml 06/25/24 15:25 06/28/24 12:08 Acetylcysteine Noreen 20% 4 Ml Nebu INH 07/25/24 15:24 3 ml Q6HRRT LIZ Administration Al Hydrox/Mg Hydrox/Simethicone 30 ml 06/15/24 13:50 Mg Hyd/Al Hyd/[place] (Maalox Reg) Susp 30 Ml Udc NG 07/15/24 13:49 Q4HR PRN Heartburn or Upset Stomach Albuterol/Ipratropium 3 ml 06/25/24 15:25 06/28/24 12:08 Albuterol/Ipratropium (Duoneb) Rt Noreen 3 Ml Nebu INH 07/25/24 15:24 3 ml Q6HRRT LIZ Administration Aspirin 81 mg 06/23/24 09:00 06/28/24 09:10 Aspirin 81 Mg Chew PO 07/23/24 08:59 81 mg QDAY LIZ Administration Atorvastatin Calcium 40 mg 06/21/24 21:00 06/27/24 20:57 Atorvastatin Calcium 20 Mg Tablet PO 07/21/24 20:59 40 mg HS LIZ Administration Calcium Carbonate 600 mg 06/23/24 09:00 06/28/24 09:10 Calcium Carbonate 600 Mg Tablet NG 07/23/24 08:59 600 mg QDAY LIZ Administration Dextrose 25 ml 06/24/24 13:46 Dextrose 50%-Water Inj 50 Ml Syringe IV 07/24/24 13:45 Q15MIN PRN BG 50-70 responsive npo pt Dextrose 50 ml 06/24/24 13:46 Dextrose 50%-Water Inj 50 Ml Syringe IV 07/24/24 13:45 Q15MIN PRN BG <50 OR BG <70 & pt unresponsive Ferrous Sulfate 300 mg 06/25/24 09:00 06/28/24 09:10 Ferrous Sulfate 300 Mg/5 Ml Udc NG 07/25/24 08:59 300 mg QDAY LIZ Administration Fludrocortisone Acetate 0.2 mg 06/24/24 09:00 06/28/24 09:10 Fludrocortisone Acetate 0.1 Mg Tablet PO 07/24/24 08:59 0.2 mg QDAY LIZ Administration Glucagon 1 mg 06/24/24 13:46 Glucagon Inj 1 Mg Vial IM Q15MIN PRN BG <70, and no IV access Heparin Sodium (Porcine) 5,000 unit 06/15/24 14:00 06/19/24 14:14 Heparin Sod Inj 5000 Unit/Ml Vial SC 06/29/24 13:59 Not Given Q8HR LIZ Hydrocortisone Sodium Succinate 100 mg 06/23/24 11:15 06/28/24 14:30 Hydrocortisone Sod Succ Inj 100 Mg Vial IV 06/30/24 11:14 100 mg Q8HR LIZ Administration Furosemide 200 mg/ Sodium 100 mls @ 5 mls/hr 06/17/24 10:56 06/18/24 07:15 Chloride IV 07/17/24 10:55 0 mls/hr .Q20H LIZ Infusion Fentanyl Citrate 2,500 mcg in 250 mls @ 2.5 mls/hr 06/25/24 05:27 06/26/24 09:45 Sublimaze Inj 2,500 Mcg/250 Ml Bag IV 06/30/24 05:26 0 mcg/hr .Q24H PRN 0 mls/hr PER PROTOCOL Titration Protocol 25 MCG/HR Propofol 1,000 mg in 100 mls @ 0.624 mls/hr 06/25/24 05:27 06/25/24 15:00 Diprivan Ivpb IV 07/25/24 05:26 0 mcg/kg/min .Q24H PRN 0 mls/hr PER PROTOCOL Titration Protocol 5 MCG/KG/MIN Cefazolin Sodium 2 gm in 100 mls @ 100 mls/hr 06/27/24 11:00 06/28/24 14:30 Ancef 2gm Ivpb IV 07/02/24 10:59 100 mls/hr Q8HR LIZ Administration Norepinephrine/Dextrose 8 mg in 250 mls @ 1.373 mls/hr 06/28/24 14:31 Levophed In D5w 8mg/250ml IV 07/15/24 22:03 .Q24H PRN PER PROTOCOL Protocol 0.03 MCG/KG/MIN Influenza Virus Vaccine Quadrival 0.5 ml 06/29/24 09:00 Influenza Virus Quadrivalent 0.5 Ml Syringe IMi 06/29/24 09:01 .ONCE ONE Insulin Human Lispro 0 unit 06/24/24 18:00 06/28/24 12:41 Insulin Lispro (Admelog) 1 Unit/0.01 Ml Unit SC 07/24/24 17:59 2 unit Q6HR LIZ Administration Protocol Magnesium Hydroxide 30 ml 06/15/24 13:50 Milk Of Magnesia Susp 30 Ml Udc NG 07/15/24 13:49 QDAY PRN CONSTIPATION Midodrine 5 mg 06/23/24 14:00 06/28/24 14:31 Midodrine 5 Mg Tablet PO 07/23/24 13:59 Not Given TID LIZ Multivitamins/Minerals 15 ml 06/19/24 15:15 06/28/24 09:10 Multivitamin 15 Ml Udc NG 07/19/24 15:14 15 ml QDAY LIZ Administration Pantoprazole Sodium 40 mg 06/16/24 09:00 06/28/24 09:09 Pantoprazole Inj 40 Mg Vial IVP 07/16/24 08:59 40 mg QDAY LIZ Administration Pharmacy Consult 1 each 06/15/24 18:27 Pharmacy To Consult Pneumovacc XX 07/15/24 18:26 PRN PRN CONSULT Pneumococcal Polyvalent Vaccine 0.5 ml 06/29/24 09:00 Pneumoc 20-Karen Conj-Dip Crm/Pf 0.5 Ml Syringe IMi 06/29/24 09:01 .ONCE ONE Potassium Phos/Sodium Phos 1 packet 06/28/24 11:00 06/28/24 11:41 Naph,[facility] Mbdb 1 Packet (1.5 Gm) PO 07/28/24 10:59 1 packet BID LIZ Administration Sertraline HCl 100 mg 06/23/24 15:30 06/28/24 09:42 Sertraline Hcl 25 Mg Tablet NG 07/23/24 15:29 100 mg QDAY LIZ Administration Sodium Chloride 3 ml 06/25/24 08:37 06/25/24 08:55 Sodium Chloride Rt Nroeen 0.9% 3 Ml Nebu INH 07/25/24 08:36 3 ml PRN PRN Administration SOLN Thiamine HCl 100 mg 06/19/24 15:15 06/28/24 09:09 Thiamine Inj 100 Mg/Ml Vial 2 Ml IV 07/19/24 15:14 100 mg QDAY LIZ Administration Plan 54 Y/O F with PMHx significant for Downs Syndrome, Schizophrenia,blindness, IBS, presents with chief complaint of AMS, last known normal 9 pm last night, admitted to ICU for septic shock requiring pressors and acute hypoxic respiratory failure requiring intubation. Neuro: #Acute encephalopathy, improving Multifactorial: hypoxia, S/p shock Low density areas in both basal ganglia seen on head CT On Presidex tapering down, withdraws to pain -EEG ordered, was significant for anoxic brain injury -Treat underlying conditions -Neuro consult placed, follow up -Atorvastatin and aspirin -Hold plavix due to low hemoglobin, hematomas #Schizophrenia #Depression Patient home medication risperidone 4mg BID, Sertraline 100mg daily, Ziprasidone 60mg BID and zolpidem 10mg PO HS -Resumed sertraline 100mg daily -Other home meds only given by care provider as needed, will continue to hold Cardio: #Shock, improving Multifactorial: #Adrenal insufficiency complicated by hypovolemia Patient blood pressure was initially 84 by palpation. Patient requires extensive pressors, vasopressin and Levophed and high doses. Bedside echo showed good left ventricular contractility, no signs of right ventricular overload. Patient is dehydrated, has had diarrhea for the past 3 days. IVC on bedside echo was variable. Patient received 750 mL normal saline bolus and 1 L of lactated Ringer's bolus. Bedside echo showed IVC congestion, patient continues to require pressors. Patient received Albumin with Lasix drip. Patient HR and BP worsened once hydrocortisone decreased. -Titrate Levophed to maintain MAP greater than 50 -Dopamine drip stopped. -Hydrocortisone 100mg IV TID -Fludracortisone 0.2mg OG daily -adequate nutrition -Treat underlying conditions #Sinus bradycardia, resolved Likely secondary to adrenal insufficiency Patient developed sinus bradycardia, dropping to low 30's. EKG only showed sinus bradycardia. Patient started on dopamine drip, unable to be titrated off. Heart rate stable in high 40's. Patient maintaining heart rate around 50. Heart rate improves when patient receives tactile stimulation. -Dopamine drip stopped -Fludracortisone -telemonitoring Pulm: #AHRF 2/ MSSA pneumonia Patient has history of Down syndrome, risk for aspiration pneumonia. Bacterial and viral pneumonia both possible. Influenza panel negative. MRSA screen negative. Sedated and mechanically ventillated -Sputum culture significant for MSSA pneumonia -Zosyn (06/16-06/18) changed to Unasyn (06/18-06/22) -Vancomycin pharmacy dosing (started 06/19-06/23) -Extubated on 06/24/24, but reintubated on 06/25 -On vancomycina 06/25-06/26 -On Meropenem 06/25-06/27 -On cefazolin 2 g 3 times daily 06/27/2024- GI: #Severe protein malnutrition Patient BMI 14.9. Patient unable to provide history, per caregiver patient has good oral intake most times, has been malnourished for years due to chronic diarrhea, has not had significant weight loss recently. Patient has very little muscle mass, temporal wasting, sunken eyes. -Dietary consult, appreciate recommendations -Thiamine and multivitamin supplements -Tube feeds, advanced -daily labs -aggressive monitoring/repleating of potassium, phosphorous, magnesium -Strict n.p.o. s/p extubation #IBS Patient history of IBS. Patient had diarrhea for 3 days prior to admission, not unusual for patient. Patient has been having regular bowel movements during hospital stay. -Monitor bowel movements -Treat metabolic abnormalities as needed #Tube feeds Trickle feeds initiated, advanced to goal rate of 35 ml/hr. -Patient strict n.p.o. s/p extubation Renal: #ОЛЬГА, resolved DDx: Prerenal due to dehydration versus ischemic ATN Patient presented with BUN 62, creatinine 2.6, eGFR 22. No previous labs to compare to. Patient has adequate urine output. Patient appears severely dehydrated exam, has received multiple boluses of fluid, on IVF. Patient was also severely hypotensive, requiring significant pressor support. Patient recieved albumin and lasix drip, lasix held next day Holding Lasix, renal function labs normalizing. Patient continues to have good urine output. -Monitor closely, maintain euvolemia -Monitor daily labs -Avoid nephrotoxins -Monitor urine output #Hypernatremia, resolved Likely due to severe dehydration. Sodium admission is 166. Patient received 150 mL bolus normal saline in the ED. Patient was then given 1 L bolus lactated Ringer's. #Hyponatremia, resolved #Hypokalemia Potassium of 2.8 on 06/27/2024 -Repleted -Monitor and replete as needed Endo: #Adrenal insufficiency Suspect due to chronic malnutrition. Patient arrived with hypotension, hypernatremia. Patient has been hypokalemic despite repletion and bradycardic. Clinical improvement with hydrocortisone followed by worsening when dosage reduced. -Fludracortisone increased to 0.2mg OG daily -Hydrocortisone 100 mg 3 times daily -monitor sodium and potassium #Hyperglycemia Patient has mild hyperglycemia, trending up. No history of diabetes. Likely due to steroid treatment. -Started on SSI lispro q6h -Insulin Lantus 5 units at bedtime x 1 -Monitor Heme: #GPC bacteremia: Blood culture was significant for GPC bacteremia As the patient is positive for MSSA pneumonia, the likely bacteremia it is 2/2 MSSA -On cefazolin 2 g 3 times daily 06/27/2024- -Central line discontinued #Hematomas Hematomas in bilateral inguinal folds as complications of attempted femoral arterial line placement. -pressure dressings -demarcations to monitor for expansion -hold DVT prophylaxis #Macrocytic anemia Patient hemoglobin 9.2, MCV 114. No previous labs to compare to. No obvious signs of acute bleeding. On 06/23: Hb 6.9, transfused 1 unit PRBC Folate and B12 not depleted. -Monitor #Leukocytosis Likely due to aspiration pneumonia and glucocorticosteroid. -Monitor ID: #Fever, resolved #UTI Patient urinalysis indicated UTI: Positive leukocyte esterase, rare bacteria, 36 WBCs. Cultures grew mckeon-sensitive E. Coli. -On Unasyn-completed #Aspiration Pneumonia Patient in acute hypoxic respiratory failure, chest x-ray with left-sided consolidations. -On Unasyn (completed) -On Meropenem 06/25-06/27 -On cefazolin 2 g 3 times daily for GPC bacteremia and MSSA pneumonia. (started 06/27) Skin/MSK: #No active issues Lines: RIJ/PIV DVT prophylaxis: Held due to hematomas G.I prophylaxis: Pantoprazole Code: Full code Plan of care discussed with attending Dr. Ashley. Live Cerrato MD PGY-1 Attending Provider Attestation/Addendum Patient seen and examined with above resident, Live Cerrato MD. I agree with the findings, assessment, and plan of care as documented except for any differences below. Patient with agitation overnight requiring benzodiazepines and leading to hypotension. Patient titrated down on minimal dose of pressors and we did check central saturation along with lactic acid to ensure that there was evidence of adequate perfusion even at a lower MAP goal. Patient will be weaned off progressively as we are focus today was to successfully wean patient for second time off of mechanical ventilation. Residents have discussed with the caregiver to ensure that they are aware of the risks given the patient's prior failure though she does well during spontaneous breathing trials even for extended period on pressure support. We have notified them that we will likely need to discuss discuss tracheostomy should she fail again. Her mentation seems to be at her baseline and she is responsive to family and caregiver appropriately. Overall strength continues to be limited given her prolonged critical illness at this point. Will correct underlying electrolyte abnormalities to ensure optimization for successful weaning. Patient will remain n.p.o. strictly and low tube feeds will be initiated. We did adjust her medications for underlying history of psychosis and only sertraline discontinued for depression. Patient remains on appropriate antibiotics for bacteremia, narrow antibiotics based on culture data. Patient's family and caregiver updated at bedside. Total critical care time: Personally spent 40 minutes for review of physiologic parameters, directing plan of care throughout the day, and counseling patient's family at bedside. This is exclusive of time spent teaching housestaff or performing any separate billable procedures. Patient continues to require critical care services for acute hypoxic respiratory failure secondary to recurrent aspiration pneumonia and septic shock from bacteremia. Patient is at high risk for further morbidity and mortality warranting continued monitoring and treatment only available in the intensive care unit.
[2024-06-29] VITALS (103 sets, daily range): BP systolic 62–137; BP diastolic 41–89; PULSE 53–121; RESP 6–35; TEMP 36.8–37.6; O2SAT 68–100
[2024-06-29] MEDS: ALBUTEROL/IPRATROPIUM (Duoneb) RT SOL 3 ML NEBU INH ×4 (00:57→19:15)
[2024-06-29] MEDS: ACETYLCYSTEINE SOL 20% 4 ML NEBU 3 ML INH ×4 (00:57→19:15)
[2024-06-29 05:23] LABS: Basophils % (Auto) 0 % (0-2.5); Eosinophils % (Auto) 0 % (0-10); Hematocrit 27.7 % (36.0-46.0); Immature Granulocytes % (Auto) 1 % (0-0); Immature Granulocytes Auto 0.17 Thou/mm3 (0.00-0.00); Lymphocytes # (Auto) 0.6 Thou/mm3 (1.0-4.8); Lymphocytes % (Auto) 4 % (10-50); Mean Corpuscular HGB Conc 32.5 g/dl (31.0-37.0); Mean Corpuscular Hemoglobin 32.7 pg (25.0-35.0); Mean Corpuscular Volume 101 fL (80-100); Monocytes # (Auto) 0.6 Thou/mm3 (0.0-0.8); Monocytes % (Auto) 4 % (0-12); Neutrophils # (Auto) 13.8 Thou/mm3 (1.8-7.7); Neutrophils % (Auto) 91 % (37-80); Nucleated Red Blood Cell % 0 /100 WBC (0); Platelet Count 403 Thou/mm3 (140-440); Red Blood Count 2.75 Miln/mm3 (4.00-5.20); White Blood Count 15.2 Thou/mm3 (3.6-11.0)
[2024-06-29] MEDS: ceFAZolin/D5W 2 GM IV 2 GM/100 ML BAG IV ×3 (05:54→21:31)
[2024-06-29] MEDS: HYDROCORTISONE SOD SUCC INJ 100 MG VIAL IV ×3 (05:54→21:31)
[2024-06-29 05:57] LABS: Alanine Aminotransferase 58 U/L (10-49); Albumin, Serum 3.3 gm/dL (3.5-5.0); Albumin/Globulin Ratio 1.1 (1.2-2.2); Alkaline Phosphatase 165 U/L (46-116); Anion Gap 10 (7-16); Aspartate Amino Transferase 29 U/L (0-34); BUN/Creatinine Ratio 28 Ratio (12-20); Bilirubin,Total 0.4 mg/dL (0.3-1.2); Blood Urea Nitrogen 11 mg/dL (9-23); Calcium 8.4 mg/dL (8.3-10.6); Carbon Dioxide 37.2 mMol/L (20.0-31.0); Chloride 95 mMol/L (98-107); Creatinine (Component) 0.4 mg/dL (0.6-1.3); Estimated Creatinine Clearance 63.4 mL/min (>60); Globulin 2.9 gm/dL (2.3-3.5); Glucose 107 mg/dL (74-106); Magnesium 1.7 mg/dL (1.6-2.6); Osmolality,Calculated 282 (275-295); Phosphorous 4.1 mg/dL (2.4-5.1); Potassium 2.9 mMol/L (3.4-5.1); Sodium 142 mMol/L (136-145); Total Protein 6.2 gm/dL (5.7-8.2); eGFR > 60 See Note
[2024-06-29] MEDS: Magnesium Sulfate 2 GM Ivpb 2 GM/50 ML BAG IV (07:48)
[2024-06-29] MEDS: POTASSIUM CHL 10 mEq IVPB 10 MEQ/100 ML BAG 100 MEQ IV ×4 (07:49→10:55)
[2024-06-29] MEDS: PANTOPRAZOLE INJ 40 MG VIAL IVP (09:11)
[2024-06-29] MEDS: THIAMINE INJ 100 MG/ML VIAL 2 ML IV (09:11)
--- NOTE | 2024-06-29 09:16 | XR_ITS ---
Examination: AP chest single view Technique: AP portable upright chest single view Exam date and time: June 29, 2024 0922 hrs. Comparison June 25, 2024 Indications: Acute hypoxic respiratory failure, pneumonia on earlier chest imaging Findings: Mild to moderate enlargement cardiac contour Bilateral perihilar basilar pneumonia most prominent left base No toya pulmonary edema Prominent osteopenia Hyperexpansion Impression: Bilateral perihilar left basilar pneumonia
[2024-06-29] MEDS: INSULIN LISPRO (AdmeLOG) 1 UNIT/0.01 ML UNIT SC ×2 (11:38→17:40)
[2024-06-29 15:34] LABS: Base Excess, Venous 18 (-3-3); O2 Saturation, Venous 97 % (96-97); PCO2, Venous 40 mmHg (36-56); PO2, Venous 76 mmHg (15-58); pH, Venous 7.61 (7.33-7.66)
[2024-06-29 15:35] LABS: Lactate (Lactic Acid) 1.1 mMol/L (0.4-2.0)
--- NOTE | 2024-06-29 15:43 | ESPR_ITS ---
Documentation for date of: 06/29/24 Subjective Subjective Interval history: 54 Y/O F with PMHx significant for Downs Syndrome, Schizophrenia,blindness, IBS, presents with chief complaint of AMS, last known normal 9 pm last night. Patient in unable to provide history, history taken from caregiver at bedside. Patient has had cough for about five days, noted sore throat. Patient has had diarrhea for 3 days, which is not uncommon for patient due to IBS. Patient was last seen at 9 pm last night. This morning patient was found unresponsive in her bed by caregiver. Patient is brought to ED, patient found to have low GCS, hypoxia with O2 sat 60% on nonrebreather, blood pressure 84 over palp. Patient was started on pressors, intubated. Patient had CODE BLUE, with 1 dose of epi before ROSC. Patient ventilated, started on sedation with propofol. Patient given 7 to 50 mL normal saline bolus and Rocephin in the ED. Blood urine and sputum cultures taken. 06/24/2024: The patient was examined and evaluated at the bedside this morning. The patient seemed more alert today. Patient was on pressor support with Levophed 0.08, vasopressin 0.03 and dopamine 10, breathing spontaneously on mechanical ventilation with pressure support. White count trended down to 17.4, hemoglobin 7.8, sodium stable at 124, potassium 3.4, calcium 8.3, magnesium 1.7 and we repleted magnesium 2 g IV, started on calcium carbonate 600 Mg daily, blood sugar 293, started the patient on SSI sensitive scale. 40 mEq of KCl was repleted. The phosphorus was 2.5, and we increased the dose of Neutra-Phos to 2 packs twice daily. The patient was successfully extubated to oxy mask. Discussion regarding the decision maker was done by me with patient's sister Annamarie Wilson in the presence of SRIKANTH Julian. Patient's Sister Annaamrie Wilson verbally stated that Ayala Putnam, who has been the scale balancer of the patient would be the decision maker for the patient for medical management and CODE STATUS changes. 06/25/2024: The patient was examined and evaluated at the bedside this morning. Overnight, the patient was desaturating in 80s, and was started on NC, transitioned to oxy mask, transition to BiPAP and finally was reintubated. Chest x-ray was significant for left lower lung pneumonia, likely secondary to aspiration pneumonia as patient was recently extubated, and given her underlying severe malnutrition was started on tube feed. Patient is on fentanyl drip to maintain RASS of 0, and on pressor support with Levophed, vasopressin and dopamine. She continues to be in sinus bradycardia. White count elevated to 13.5 in the setting of aspiration pneumonia, sodium continues to be 125, and she was given 500 cc of IV normal saline bolus, potassium 3.4 and was given 40 mEq of KCl. 06/26/2024: The patient was examined and evaluated at the bedside this morning. Overnight, patient did not had any acute overnight events. White count mildly trended down to 31.2, cultures pending, we discontinued linezolid and we will continue with meropenem at this point. Patient tapered down on dopamine to 7.5, and other pressor support discontinued. We considered for MAP to be stable if greater than 50, as demonstrated by normal lactic acid level at MAP greater than 50. The plan is to extubate the patient tomorrow morning. 06/27/2024: The patient was examined and evaluated at the bedside this morning again. Overnight no acute events. White count trended down to 21.5, ABG revealed pH 7.47, pCO2 46, and bicarb 34. Potassium was 2.8, and was repleted. Blood sugar this morning was 278 with mild transaminitis. We stopped dopamine drip, and the MAP goal is greater than 50. We will try for SBT tomorrow morning. Goals of care discussion was done, and Ayala Putnam who is the decision-maker recommended to proceed with tracheostomy tube if required. 06/28/2024: Patient seen and examined at bedside. Overnight patient became agitated with worsening sinus tachycardia, received 0.5 mg Ativan x 1, after which patient became hypotensive requiring Levophed to be resumed. Levophed titrate down to 0.03, held there to maintain MAP while patient is extubated. On exam patient is more active, opening eyes and moving all extremities. Patient tolerated pressure support well, with successfully extubated without complications. Patient strict n.p.o. VBG showed pH 7.56, pCO2 41, pO2 41. Lactate 2.0. Phosphorus 2.1, received 15 mmol potassium phosphate. Central line removed, Levophed transferred to peripheral IV. 06/29/2024: Patient seen and examined at bedside. Patient was reportedly very active overnight. In the morning, patient became acutely hypoxic, required BVM to maintain oxygen saturations. Chest x-ray showed consolidation of left lung base indicating atelectasis, possibly due to aspiration versus mucous plugging. Patient was repositioned on the right side and placed on high flow nasal cannula with immediate improvement in oxygenation. Will continue to titrate FiO2 as tolerated by patient. Levophed was discontinued. Repeat blood cultures drawn today for MSSA bacteremia. Exam Vital Signs Temp Pulse Resp BP Pulse Ox O2 Del Method O2 Flow Rate 98.9 F 91 23 H 78/49 L 99 Nasal Cannula 20 06/29/24 12:00 06/29/24 15:16 06/29/24 15:16 06/29/24 14:00 06/29/24 15:16 06/28/24 16:00 06/29/24 15:16 FiO2 75 06/29/24 15:16 Narrative Exam PE: Gen: Extremely cachexic. HEENT: Dry mucous membranes. Left eye heavily scarred, right eye glassy. Scarring around nares. CVS: normal S1 and S2. No M/R/G. Resp: No rhonchi, rales, crackles or wheezing. Coarse lung sounds. Abd: soft, non-tender, non-distended. MSK: No edema. Multiple old scars/wounds on all extremities, patient has history of self-inflicted injuries, picking at skin. Significant bruises at left/right inguinal folds. Neuro: Opens eyes to audible stimuli. Withdraws from pain. Objective Labs 07/01/24 08:38 07/01/24 08:38 Labs: Laboratory Results - last 24 hr 06/29/24 06/29/24 04:49 15:15 WBC 15.2 H RBC 2.75 L Hgb 9.0 L D Hct 27.7 L MCV 101 H MCH 32.7 MCHC 32.5 RDW Std Deviation 66.0 H Plt Count 403 Neut % (Auto) 91 H Lymph % (Auto) 4 L Bath % (Auto) 4 Eos % (Auto) 0 Baso % (Auto) 0 Neut # (Auto) 13.8 H Lymph # (Auto) 0.6 L Bath # (Auto) 0.6 Eos # (Auto) 0.0 Baso # (Auto) 0.0 Immature Gran # (Auto) 0.17 H Absolute Nucleated RBC 0.00 Immature Gran % 1 H Nucleated RBC % 0 VBG pH 7.61 VBG pCO2 40 VBG pO2 76 H D VBG O2 Sat (George) 97 VBG Base Excess 18 H Sodium 142 Potassium 2.9 L D Chloride 95 L Carbon Dioxide 37.2 H Anion Gap 10 BUN 11 Creatinine 0.4 L Estim Creat Clear Calc 63.4 eGFR > 60 BUN/Creatinine Ratio 28 H Glucose 107 H Calculated Osmolality 282 Lactic Acid 1.1 Calcium 8.4 Corrected Calcium 9.0 Phosphorus 4.1 Magnesium 1.7 Total Bilirubin 0.4 AST 29 ALT 58 H Alkaline Phosphatase 165 H Total Protein 6.2 Albumin 3.3 L Globulin 2.9 Albumin/Globulin Ratio 1.1 L ABG Interpretation ABG results: 06/15/24 06/15/24 06/15/24 11:06 14:05 17:00 ABG pH 7.23 L 7.33 L D 7.34 L ABG pCO2 69 H 56 H D 57 H ABG pO2 153 H 67 L D 65 L ABG HCO3 29 H 29 H 30 H ABG O2 Saturation 99 H 92 91 ABG Base Excess 0 3 4 H VBG pH VBG pCO2 VBG pO2 VBG Base Excess 06/16/24 06/17/24 06/18/24 04:04 04:36 04:04 ABG pH 7.35 7.42 7.53 H D ABG pCO2 57 H 54 H 57 H ABG pO2 58 L* 77 L 73 L ABG HCO3 31 H 35 H 47 H ABG O2 Saturation 88 L 96 96 ABG Base Excess 5 H 9 H 22 H VBG pH VBG pCO2 VBG pO2 VBG Base Excess 06/19/24 06/22/24 06/23/24 04:12 17:30 09:55 ABG pH 7.54 H ABG pCO2 50 H ABG pO2 61 L ABG HCO3 42 H ABG O2 Saturation 93 ABG Base Excess 18 H VBG pH 7.46 7.49 VBG pCO2 43 41 VBG pO2 98 H 39 D VBG Base Excess 6 H 7 H 06/25/24 06/26/24 06/27/24 05:04 12:08 04:54 ABG pH 7.47 H 7.48 H ABG pCO2 43 45 ABG pO2 60 L 41 L* ABG HCO3 31 H 34 H ABG O2 Saturation 92 77 L ABG Base Excess 6 H 9 H VBG pH 7.43 VBG pCO2 47 VBG pO2 35 VBG Base Excess 6 H 06/27/24 06/28/24 06/28/24 06:23 04:27 13:19 ABG pH 7.47 H 7.55 H ABG pCO2 46 41 ABG pO2 157 H D 78 L D ABG HCO3 34 H 36 H ABG O2 Saturation 100 H 98 ABG Base Excess 9 H 13 H VBG pH 7.56 VBG pCO2 41 VBG pO2 41 VBG Base Excess 13 H 06/29/24 15:15 ABG pH ABG pCO2 ABG pO2 ABG HCO3 ABG O2 Saturation ABG Base Excess VBG pH 7.61 VBG pCO2 40 VBG pO2 76 H D VBG Base Excess 18 H Quality Measures Quality Measures VTE prophylaxis Assessment & Plan Assessment Current Active Medications: Generic Name Dose Route Start Last Admin Trade Name Freq PRN Reason Stop Dose Admin Acetaminophen 650 mg 06/15/24 13:50 Acetaminophen Supp 650 Mg Supp NM 07/15/24 13:49 Q4HR PRN PAIN SCALE 1-3 (mild Acetaminophen 650 mg 06/19/24 07:27 06/19/24 07:43 Acetaminophen Noreen 325 Mg/10 Ml Udc NG 07/19/24 07:26 650 mg Q4HR PRN Administration Pain Or Fever > 100.4 Protocol Acetylcysteine 3 ml 06/25/24 15:25 06/29/24 12:44 Acetylcysteine Noreen 20% 4 Ml Nebu INH 07/25/24 15:24 3 ml Q6HRRT LIZ Administration Al Hydrox/Mg Hydrox/Simethicone 30 ml 06/15/24 13:50 Mg Hyd/Al Hyd/[place] (Maalox Reg) Susp 30 Ml Udc NG 07/15/24 13:49 Q4HR PRN Heartburn or Upset Stomach Albuterol/Ipratropium 3 ml 06/25/24 15:25 06/29/24 12:44 Albuterol/Ipratropium (Duoneb) Rt Noreen 3 Ml Nebu INH 07/25/24 15:24 3 ml Q6HRRT LIZ Administration Aspirin 81 mg 06/23/24 09:00 06/29/24 09:44 Aspirin 81 Mg Chew PO 07/23/24 08:59 Not Given QDAY LIZ Atorvastatin Calcium 40 mg 06/21/24 21:00 06/28/24 20:12 Atorvastatin Calcium 20 Mg Tablet PO 07/21/24 20:59 Not Given HS LIZ Calcium Carbonate 600 mg 06/23/24 09:00 06/29/24 09:44 Calcium Carbonate 600 Mg Tablet NG 07/23/24 08:59 Not Given QDAY LIZ Dextrose 25 ml 06/24/24 13:46 Dextrose 50%-Water Inj 50 Ml Syringe IV 07/24/24 13:45 Q15MIN PRN BG 50-70 responsive npo pt Dextrose 50 ml 06/24/24 13:46 Dextrose 50%-Water Inj 50 Ml Syringe IV 07/24/24 13:45 Q15MIN PRN BG <50 OR BG <70 & pt unresponsive Enoxaparin Sodium 20 mg 06/30/24 09:00 Enoxaparin Sod Inj 30 Mg/0.3 Ml Syringe SC 07/14/24 08:59 QDAY [facility] Ferrous Sulfate 300 mg 06/25/24 09:00 06/29/24 09:45 Ferrous Sulfate 300 Mg/5 Ml Udc NG 07/25/24 08:59 Not Given QDAY LIZ Fludrocortisone Acetate 0.2 mg 06/24/24 09:00 06/29/24 09:45 Fludrocortisone Acetate 0.1 Mg Tablet PO 07/24/24 08:59 Not Given QDAY [facility] Glucagon 1 mg 06/24/24 13:46 Glucagon Inj 1 Mg Vial IM Q15MIN PRN BG <70, and no IV access Hydrocortisone Sodium Succinate 100 mg 06/23/24 11:15 06/29/24 13:16 Hydrocortisone Sod Succ Inj 100 Mg Vial IV 06/30/24 11:14 100 mg Q8HR LIZ Administration Furosemide 200 mg/ Sodium 100 mls @ 5 mls/hr 06/17/24 10:56 06/18/24 07:15 Chloride IV 07/17/24 10:55 0 mls/hr .Q20H LIZ Infusion Fentanyl Citrate 2,500 mcg in 250 mls @ 2.5 mls/hr 06/25/24 05:27 06/26/24 09:45 Sublimaze Inj 2,500 Mcg/250 Ml Bag IV 06/30/24 05:26 0 mcg/hr .Q24H PRN 0 mls/hr PER PROTOCOL Titration Protocol 25 MCG/HR Propofol 1,000 mg in 100 mls @ 0.624 mls/hr 06/25/24 05:27 06/25/24 15:00 Diprivan Ivpb IV 07/25/24 05:26 0 mcg/kg/min .Q24H PRN 0 mls/hr PER PROTOCOL Titration Protocol 5 MCG/KG/MIN Cefazolin Sodium 2 gm in 100 mls @ 100 mls/hr 06/27/24 11:00 06/29/24 14:38 Ancef 2gm Ivpb IV 07/02/24 10:59 100 mls/hr Q8HR LIZ Administration Insulin Human Lispro 0 unit 06/24/24 18:00 06/29/24 11:38 Insulin Lispro (Admelog) 1 Unit/0.01 Ml Unit SC 07/24/24 17:59 1 unit Q6HR LIZ Administration Protocol Magnesium Hydroxide 30 ml 06/15/24 13:50 Milk Of Magnesia Susp 30 Ml Udc NG 07/15/24 13:49 QDAY PRN CONSTIPATION Midodrine 5 mg 06/23/24 14:00 06/29/24 13:23 Midodrine 5 Mg Tablet PO 07/23/24 13:59 Not Given TID LIZ Multivitamins/Minerals 15 ml 06/19/24 15:15 06/29/24 09:45 Multivitamin 15 Ml Udc NG 07/19/24 15:14 Not Given QDAY LIZ Pantoprazole Sodium 40 mg 06/16/24 09:00 06/29/24 09:11 Pantoprazole Inj 40 Mg Vial IVP 07/16/24 08:59 40 mg QDAY LIZ Administration Pharmacy Consult 1 each 06/15/24 18:27 Pharmacy To Consult Pneumovacc XX 07/15/24 18:26 PRN PRN CONSULT Potassium Phos/Sodium Phos 1 packet 06/28/24 11:00 06/29/24 09:45 [facility]aph,[facility]db 1 Packet (1.5 Gm) PO 07/28/24 10:59 Not Given BID LIZ Sertraline HCl 100 mg 06/23/24 15:30 06/29/24 09:46 Sertraline Hcl 25 Mg Tablet NG 07/23/24 15:29 Not Given QDAY LIZ Sodium Chloride 3 ml 06/25/24 08:37 06/25/24 08:55 Sodium Chloride Rt Noreen 0.9% 3 Ml Nebu INH 07/25/24 08:36 3 ml PRN PRN Administration SOLN Thiamine HCl 100 mg 06/19/24 15:15 06/29/24 09:11 Thiamine Inj 100 Mg/Ml Vial 2 Ml IV 07/19/24 15:14 100 mg QDAY LIZ Administration Plan 54 Y/O F with PMHx significant for Downs Syndrome, Schizophrenia,blindness, IBS, presents with chief complaint of AMS, last known normal 9 pm last night, admitted to ICU for septic shock requiring pressors and acute hypoxic respiratory failure requiring intubation. Neuro: #Acute encephalopathy, improving Multifactorial: hypoxia, S/p shock Low density areas in both basal ganglia seen on head CT On Presidex tapering down, withdraws to pain -EEG ordered, was significant for anoxic brain injury -Treat underlying conditions -Neuro consult placed, follow up -Atorvastatin and aspirin -Hold plavix due to low hemoglobin, hematomas #Schizophrenia #Depression Patient home medication risperidone 4mg BID, Sertraline 100mg daily, Ziprasidone 60mg BID and zolpidem 10mg PO HS -Resumed sertraline 100mg daily, held due to n.p.o. -Other home meds only given by care provider as needed, will continue to hold Cardio: #Shock, resolved Multifactorial: #Adrenal insufficiency complicated by hypovolemia Patient blood pressure was initially 84 by palpation. Patient requires extensive pressors, vasopressin and Levophed and high doses. Bedside echo showed good left ventricular contractility, no signs of right ventricular overload. Patient is dehydrated, has had diarrhea for the past 3 days. IVC on bedside echo was variable. Patient received 750 mL normal saline bolus and 1 L of lactated Ringer's bolus. Bedside echo showed IVC congestion, patient continues to require pressors. Patient received Albumin with Lasix drip. Patient HR and BP worsened once hydrocortisone decreased. Dopamine drip discontinued. Levophed discontinued. -Hydrocortisone 100mg IV TID -Fludracortisone 0.2mg OG daily, held due to n.p.o. -adequate nutrition -Treat underlying conditions #Sinus bradycardia, resolved Likely secondary to adrenal insufficiency Patient developed sinus bradycardia, dropping to low 30's. EKG only showed sinus bradycardia. Patient started on dopamine drip, unable to be titrated off. Heart rate stable in high 40's. Patient maintaining heart rate around 50. Heart rate improves when patient receives tactile stimulation. -Dopamine drip stopped -Fludracortisone -telemonitoring Pulm: #AHRF 08/03 MSSA pneumonia Patient has history of Down syndrome, risk for aspiration pneumonia. Bacterial and viral pneumonia both possible. Influenza panel negative. MRSA screen negative. Sedated and mechanically ventillated -Sputum culture significant for MSSA pneumonia -Zosyn (06/16-06/18) changed to Unasyn (06/18-06/22) -Vancomycin pharmacy dosing (started 06/19-06/23) -Extubated on 06/24/24, but reintubated on 06/25 -On vancomycina 06/25-06/26 -On Meropenem 06/25-06/27 -On cefazolin 2 g 3 times daily 06/27/2024- #Atelectasis Patient had episode of acute hypoxic respiratory failure the day following extubation. Patient required BVM to maintain oxygenation, was placed on high flow nasal cannula. Chest x-ray showed consolidation of left lower lung lobe, indicating atelectasis due to aspiration versus mucous plugging. Patient was repositioned on the right side with immediate improvement in O2 saturation and work of breathing. -CPT -Avoid positioning on left side -High flow nasal cannula, titrate FiO2 as tolerated -Breathing treatments GI: #Severe protein malnutrition Patient BMI 14.9. Patient unable to provide history, per caregiver patient has good oral intake most times, has been malnourished for years due to chronic diarrhea, has not had significant weight loss recently. Patient has very little muscle mass, temporal wasting, sunken eyes. -Dietary consult, appreciate recommendations -Thiamine and multivitamin supplements -Tube feeds, advanced -daily labs -aggressive monitoring/repleating of potassium, phosphorous, magnesium -Strict n.p.o. s/p extubation #IBS Patient history of IBS. Patient had diarrhea for 3 days prior to admission, not unusual for patient. Patient has been having regular bowel movements during hospital stay. -Monitor bowel movements -Treat metabolic abnormalities as needed #Tube feeds Trickle feeds initiated, advanced to goal rate of 35 ml/hr. -Patient strict n.p.o. s/p extubation Renal: #Metabolic alkalosis Unclear etiology: Possibly due to refeeding syndrome, hydrocortisone use Patient has had metabolic alkalosis, slowly getting progressively worse. Initially to be contraction alkalosis, however patient has had progression despite being off diuresis. Patient has inadequate respiratory compensation, pCO2 lower than expected for patient's serum bicarb. Serum bicarb 37.2, VBG showed pH 7.6, pCO2 40. -Monitor daily labs -Urine electrolytes studies pending #ОЛЬГА, resolved DDx: Prerenal due to dehydration versus ischemic ATN Patient presented with BUN 62, creatinine 2.6, eGFR 22. No previous labs to compare to. Patient has adequate urine output. Patient appears severely dehydrated exam, has received multiple boluses of fluid, on IVF. Patient was also severely hypotensive, requiring significant pressor support. Patient recieved albumin and lasix drip, lasix held next day Holding Lasix, renal function labs normalizing. Patient continues to have good urine output. -Monitor closely, maintain euvolemia -Monitor daily labs -Avoid nephrotoxins -Monitor urine output #Hypernatremia, resolved Likely due to severe dehydration. Sodium admission is 166. Patient received 150 mL bolus normal saline in the ED. Patient was then given 1 L bolus lactated Ringer's. #Hyponatremia, resolved #Hypokalemia Potassium of 2.8 on 06/27/2024 -Repleted -Monitor and replete as needed Endo: #Adrenal insufficiency Suspect due to chronic malnutrition. Patient arrived with hypotension, hypernatremia. Patient has been hypokalemic despite repletion and bradycardic. Clinical improvement with hydrocortisone followed by worsening when dosage reduced. -Fludracortisone increased to 0.2mg OG daily held as patient is n.p.o. -Hydrocortisone 100 mg 3 times daily -monitor sodium and potassium #Hyperglycemia Patient has mild hyperglycemia, trending up. No history of diabetes. Likely due to steroid treatment. -Started on SSI lispro q6h -Insulin Lantus 5 units at bedtime x 1 -Monitor Heme: #Hematomas, resolved Hematomas in bilateral inguinal folds as complications of attempted femoral arterial line placement. Hematomas have resolved, leaving bruises and inguinal folds. -Monitor #Macrocytic anemia Patient hemoglobin 9.2, MCV 114. No previous labs to compare to. No obvious signs of acute bleeding. On 06/23: Hb 6.9, transfused 1 unit PRBC Folate and B12 not depleted. -Monitor #Leukocytosis Likely due to aspiration pneumonia and glucocorticosteroid. -Monitor ID: #[id number] bacteremia Blood cultures positive for MSSA bacteremia. Central line removed. Source is MSSA pneumonia. -Repeat blood cultures 06/29, follow-up -Cefazolin 2 g 3 times daily #UTI Patient urinalysis indicated UTI: Positive leukocyte esterase, rare bacteria, 36 WBCs. Cultures grew mckeon-sensitive E. Coli. -On Unasyn-completed #Aspiration Pneumonia Patient in acute hypoxic respiratory failure, chest x-ray with left-sided consolidations. -On Unasyn (completed) -On Meropenem 06/25-06/27 -On cefazolin 2 g 3 times daily for GPC bacteremia and MSSA pneumonia. (started 06/27) Skin/MSK: #No active issues Lines: RIJ/PIV DVT prophylaxis: Lovenox G.I prophylaxis: Pantoprazole Code: Full code Plan of care discussed with attending Dr. Ashley. Live Cerrato MD PGY-1 Attending Provider Attestation/Addendum Patient seen and examined with above resident, Live Cerrato MD. I agree with the findings, assessment, and plan of care as documented except for any differences below. Patient now postextubation, second attempt. However overnight continues to have slow decline in oxygenation requiring transition to high humidity/high flow nasal cannula. Will continue to try multiple positioning and chest physiotherapy for airway clearance. Patient does have cough and she continues to be significantly debilitated from a critical illness and prior deconditioning. Patient has limited reserves and developmental delay at baseline. Patient's family aware of the current decline but remain hopeful with aggressive measures. Will continue to wean proactive to prevent potential reintubation though she has lasted slightly longer this time than prior attempt. Suspect patient will likely need tracheostomy and PEG tube placement should reintubation occur and this will further likely lead to deterioration in her overall status and does not carry a significant improvement in her prognosis at this time. Patient remains on appropriate antibiotic regimen for MSSA bacteremia likely from pulmonary source. All accessory catheters have been removed though I do not suspect this was a catheter associated infection given recurrent aspiration event and significant left lower lobe pneumonia which is the culprit area and likely seeding the organism. Antibiotics based on sensitivities from prior cultures. Patient continues to show improvement WBC count despite declining oxygenation. No fevers overnight. Patient will continue to wear closely monitor for airway management and did require brief BVM support prior to additional optimization of positioning to help her gas exchange. Status remains tenuous at this time. Total critical care time: I personally spent 40 minutes for review of physiologic parameters and directing plan of care throughout the day including frequent adjustments to oxygen/ventilatory support. This is exclusive of time spent teaching housestaff or performing any separate billable procedures. Patient continues to require critical care services for acute hypoxic respiratory failure secondary to MSSA pneumonia/bacteremia with resolution of septic shock though inability to completely wean from oxygen support. Patient required critical care services for close monitoring and prompt intervention should her hypoxia further decline requiring reintubation.
[2024-06-29] MEDS: FOLIC ACID INJ 1 MG/0.2 ML IVP (17:41)
[2024-06-30] VITALS (63 sets, daily range): BP systolic 67–135; BP diastolic 44–81; PULSE 50–104; RESP 7–29; TEMP 36.5–37.2; O2SAT 78–100
[2024-06-30 05:51] LABS: Basophils % (Auto) 0 % (0-2.5); Eosinophils % (Auto) 0 % (0-10); Hematocrit 31.6 % (36.0-46.0); Hemoglobin 10.5 g/dL (12.0-16.0); Immature Granulocytes % (Auto) 2 % (0-0); Lymphocytes # (Auto) 1.1 Thou/mm3 (1.0-4.8); Lymphocytes % (Auto) 7 % (10-50); Mean Corpuscular HGB Conc 33.2 g/dl (31.0-37.0); Mean Corpuscular Hemoglobin 33.3 pg (25.0-35.0); Mean Corpuscular Volume 100 fL (80-100); Monocytes # (Auto) 0.4 Thou/mm3 (0.0-0.8); Monocytes % (Auto) 3 % (0-12); Neutrophils # (Auto) 13.4 Thou/mm3 (1.8-7.7); Neutrophils % (Auto) 89 % (37-80); Nucleated Red Blood Cell # 0.02 Thou/mm3 (0.00-0.00); Nucleated Red Blood Cell % 0 /100 WBC (0); Platelet Count 466 Thou/mm3 (140-440); RDW Standard Deviation 67.7 fL (36.4-46.3); Red Blood Count 3.15 Miln/mm3 (4.00-5.20); White Blood Count 15.2 Thou/mm3 (3.6-11.0)
[2024-06-30] MEDS: ceFAZolin/D5W 2 GM IV 2 GM/100 ML BAG IV ×3 (06:14→21:54)
[2024-06-30] MEDS: HYDROCORTISONE SOD SUCC INJ 100 MG VIAL IV (06:14)
[2024-06-30] MEDS: ACETYLCYSTEINE SOL 20% 4 ML NEBU 3 ML INH ×3 (06:56→18:32)
[2024-06-30] MEDS: ALBUTEROL/IPRATROPIUM (Duoneb) RT SOL 3 ML NEBU INH ×3 (06:56→18:31)
[2024-06-30 07:14] LABS: Albumin, Serum 3.6 gm/dL (3.5-5.0); Albumin/Globulin Ratio 1.2 (1.2-2.2); Alkaline Phosphatase 148 U/L (46-116); Anion Gap 10 (7-16); Aspartate Amino Transferase 41 U/L (0-34); BUN/Creatinine Ratio 32 Ratio (12-20); Bilirubin,Total 0.5 mg/dL (0.3-1.2); Blood Urea Nitrogen 19 mg/dL (9-23); Calcium 8.5 mg/dL (8.3-10.6); Calcium (Corrected) 8.8 mg/dL (8.5-10.1); Carbon Dioxide 39.2 mMol/L (20.0-31.0); Chloride 92 mMol/L (98-107); Creatinine (Component) 0.6 mg/dL (0.6-1.3); Estimated Creatinine Clearance 36.5 mL/min (>60); Globulin 3.1 gm/dL (2.3-3.5); Glucose 84 mg/dL (74-106); Magnesium 2.2 mg/dL (1.6-2.6); Osmolality,Calculated 282 (275-295); Phosphorous 4.3 mg/dL (2.4-5.1); Potassium 3.3 mMol/L (3.4-5.1); Sodium 141 mMol/L (136-145); Total Protein 6.7 gm/dL (5.7-8.2); eGFR > 60 See Note
[2024-06-30 07:28] LABS: Alanine Aminotransferase 14 U/L (10-49)
[2024-06-30] MEDS: ENOXAPARIN SOD INJ 30 MG/0.3 ML SYRINGE 20 MG SC (08:45)
[2024-06-30] MEDS: POTASSIUM CHL 10 mEq IVPB 10 MEQ/100 ML BAG 100 MEQ IV ×4 (08:46→12:28)
[2024-06-30] MEDS: THIAMINE INJ 100 MG/ML VIAL 2 ML IV (08:46)
[2024-06-30] MEDS: FOLIC ACID INJ 1 MG/0.2 ML IVP (08:46)
[2024-06-30] MEDS: PANTOPRAZOLE INJ 40 MG VIAL IVP (08:46)
--- NOTE | 2024-06-30 08:53 | XR_ITS ---
Examination: AP chest single view TECHNIQUE: AP portable sitting chest single view Exam date and time: June 30, 2024 0906 hours Comparison June 29, 2024 INDICATIONS: Diagnosis acute hypoxic respiratory failure FINDINGS: Significant hyperexpansion Significant pneumonia and volume loss left base with shift of heart trachea and mediastinum to the left Pneumonia right base Prominent osteopenia IMPRESSION: Significant pneumonia volume loss left base Pneumonia right base
[2024-06-30 09:07] LABS: Chloride,Urine Random 98.9 mMol/L (55.0-125.0); Potassium,Urine Random 60 mMol/L (12-62)
--- NOTE | 2024-06-30 13:39 | ESPR_ITS ---
Documentation for date of: 06/30/24 Subjective Subjective Interval history: 54 Y/O F with PMHx significant for Downs Syndrome, Schizophrenia,blindness, IBS, presents with chief complaint of AMS, last known normal 9 pm last night. Patient in unable to provide history, history taken from caregiver at bedside. Patient has had cough for about five days, noted sore throat. Patient has had diarrhea for 3 days, which is not uncommon for patient due to IBS. Patient was last seen at 9 pm last night. This morning patient was found unresponsive in her bed by caregiver. Patient is brought to ED, patient found to have low GCS, hypoxia with O2 sat 60% on nonrebreather, blood pressure 84 over palp. Patient was started on pressors, intubated. Patient had CODE BLUE, with 1 dose of epi before ROSC. Patient ventilated, started on sedation with propofol. Patient given 7 to 50 mL normal saline bolus and Rocephin in the ED. Blood urine and sputum cultures taken. 06/24/2024: The patient was examined and evaluated at the bedside this morning. The patient seemed more alert today. Patient was on pressor support with Levophed 0.08, vasopressin 0.03 and dopamine 10, breathing spontaneously on mechanical ventilation with pressure support. White count trended down to 17.4, hemoglobin 7.8, sodium stable at 124, potassium 3.4, calcium 8.3, magnesium 1.7 and we repleted magnesium 2 g IV, started on calcium carbonate 600 Mg daily, blood sugar 293, started the patient on SSI sensitive scale. 40 mEq of KCl was repleted. The phosphorus was 2.5, and we increased the dose of Neutra-Phos to 2 packs twice daily. The patient was successfully extubated to oxy mask. Discussion regarding the decision maker was done by me with patient's sister Annamarie Wilson in the presence of SRIKANTH Julian. Patient's Sister Annamarie Wilson verbally stated that Ayala Putnam, who has been the photographer apprentice lithographic of the patient would be the decision maker for the patient for medical management and CODE STATUS changes. 06/25/2024: The patient was examined and evaluated at the bedside this morning. Overnight, the patient was desaturating in 80s, and was started on NC, transitioned to oxy mask, transition to BiPAP and finally was reintubated. Chest x-ray was significant for left lower lung pneumonia, likely secondary to aspiration pneumonia as patient was recently extubated, and given her underlying severe malnutrition was started on tube feed. Patient is on fentanyl drip to maintain RASS of 0, and on pressor support with Levophed, vasopressin and dopamine. She continues to be in sinus bradycardia. White count elevated to 13.5 in the setting of aspiration pneumonia, sodium continues to be 125, and she was given 500 cc of IV normal saline bolus, potassium 3.4 and was given 40 mEq of KCl. 06/26/2024: The patient was examined and evaluated at the bedside this morning. Overnight, patient did not had any acute overnight events. White count mildly trended down to 31.2, cultures pending, we discontinued linezolid and we will continue with meropenem at this point. Patient tapered down on dopamine to 7.5, and other pressor support discontinued. We considered for MAP to be stable if greater than 50, as demonstrated by normal lactic acid level at MAP greater than 50. The plan is to extubate the patient tomorrow morning. 06/27/2024: The patient was examined and evaluated at the bedside this morning again. Overnight no acute events. White count trended down to 21.5, ABG revealed pH 7.47, pCO2 46, and bicarb 34. Potassium was 2.8, and was repleted. Blood sugar this morning was 278 with mild transaminitis. We stopped dopamine drip, and the MAP goal is greater than 50. We will try for SBT tomorrow morning. Goals of care discussion was done, and Ayala Putnam who is the decision-maker recommended to proceed with tracheostomy tube if required. 06/28/2024: Patient seen and examined at bedside. Overnight patient became agitated with worsening sinus tachycardia, received 0.5 mg Ativan x 1, after which patient became hypotensive requiring Levophed to be resumed. Levophed titrate down to 0.03, held there to maintain MAP while patient is extubated. On exam patient is more active, opening eyes and moving all extremities. Patient tolerated pressure support well, with successfully extubated without complications. Patient strict n.p.o. VBG showed pH 7.56, pCO2 41, pO2 41. Lactate 2.0. Phosphorus 2.1, received 15 mmol potassium phosphate. Central line removed, Levophed transferred to peripheral IV. 06/29/2024: Patient seen and examined at bedside. Patient was reportedly very active overnight. In the morning, patient became acutely hypoxic, required BVM to maintain oxygen saturations. Chest x-ray showed consolidation of left lung base indicating atelectasis, possibly due to aspiration versus mucous plugging. Patient was repositioned on the right side and placed on high flow nasal cannula with immediate improvement in oxygenation. Will continue to titrate FiO2 as tolerated by patient. Levophed was discontinued. Repeat blood cultures drawn today for MSSA bacteremia. 06/30/2024: Patient seen and examined at bedside. In the morning patient had episode of desaturation down to low 80s. Patient was repositioned and sat up, high flow nasal cannula increased to 100% FiO2 at 40 L/min. Oxygen saturation improved. Goals of care conversation held with photographer apprentice lithographic, explained that patient required intubation patient required tracheostomy and PEG tube placement for long-term rehabilitation. Management Analyst fully understands and wishes to proceed with full and aggressive treatment. Plan to have patient sit up in chair and attempt to maintain O2 saturations, if needed will reintubate patient and consult general surgery for tracheostomy and PEG tube placement. Started patient on D10 NS for nutritional support. Exam Vital Signs Temp Pulse Resp BP Pulse Ox O2 Del Method O2 Flow Rate 98.4 F 89 28 H 109/66 98 High Flow Nasal Cannula 40 06/30/24 12:00 06/30/24 13:10 06/30/24 13:10 06/30/24 13:00 06/30/24 13:10 06/30/24 13:00 06/30/24 13:10 FiO2 100 06/30/24 13:10 Narrative Exam PE: Gen: Extremely cachexic. HEENT: Dry mucous membranes. Left eye heavily scarred, right eye glassy. Scarring around nares. CVS: normal S1 and S2. No M/R/G. Resp: No rhonchi, rales, crackles or wheezing. Diminished lung sounds, poor respiratory effort. Abd: soft, non-tender, non-distended. MSK: No edema. Multiple old scars/wounds on all extremities, patient has history of self-inflicted injuries, picking at skin. Significant bruises at left/right inguinal folds. Neuro: Opens eyes to audible stimuli. Withdraws from pain. Objective Labs 12/31/24 08:38 07/01/24 08:38 Labs: Laboratory Results - last 24 hr 06/29/24 06/30/24 06/30/24 15:15 04:55 09:00 WBC 15.2 H RBC 3.15 L Hgb 10.5 L Hct 31.6 L MCV 100 MCH 33.3 MCHC 33.2 RDW Std Deviation 67.7 H Plt Count 466 H D Neut % (Auto) 89 H Lymph % (Auto) 7 L Toombs % (Auto) 3 Eos % (Auto) 0 Baso % (Auto) 0 Neut # (Auto) 13.4 H Lymph # (Auto) 1.1 Toombs # (Auto) 0.4 Eos # (Auto) 0.0 Baso # (Auto) 0.0 Immature Gran # (Auto) 0.30 H Absolute Nucleated RBC 0.02 H Immature Gran % 2 H Nucleated RBC % 0 VBG pH 7.61 VBG pCO2 40 VBG pO2 76 H D VBG O2 Sat (George) 97 VBG Base Excess 18 H Sodium 141 Potassium 3.3 L Chloride 92 L Carbon Dioxide 39.2 H Anion Gap 10 BUN 19 Creatinine 0.6 Estim Creat Clear Calc 36.5 L eGFR > 60 BUN/Creatinine Ratio 32 H Glucose 84 Calculated Osmolality 282 Lactic Acid 1.1 Calcium 8.5 Corrected Calcium 8.8 Phosphorus 4.3 Magnesium 2.2 Total Bilirubin 0.5 AST 41 H ALT 14 Alkaline Phosphatase 148 H Total Protein 6.7 Albumin 3.6 Globulin 3.1 Albumin/Globulin Ratio 1.2 Ur Random Sodium 81.0 Ur Random Potassium 60 Ur Random Chloride 98.9 ABG Interpretation ABG results: 06/15/24 06/15/24 06/15/24 11:06 14:05 17:00 ABG pH 7.23 L 7.33 L D 7.34 L ABG pCO2 69 H 56 H D 57 H ABG pO2 153 H 67 L D 65 L ABG HCO3 29 H 29 H 30 H ABG O2 Saturation 99 H 92 91 ABG Base Excess 0 3 4 H VBG pH VBG pCO2 VBG pO2 VBG Base Excess 06/16/24 06/17/24 06/18/24 04:04 04:36 04:04 ABG pH 7.35 7.42 7.53 H D ABG pCO2 57 H 54 H 57 H ABG pO2 58 L* 77 L 73 L ABG HCO3 31 H 35 H 47 H ABG O2 Saturation 88 L 96 96 ABG Base Excess 5 H 9 H 22 H VBG pH VBG pCO2 VBG pO2 VBG Base Excess 06/19/24 06/22/24 06/23/24 04:12 17:30 09:55 ABG pH 7.54 H ABG pCO2 50 H ABG pO2 61 L ABG HCO3 42 H ABG O2 Saturation 93 ABG Base Excess 18 H VBG pH 7.46 7.49 VBG pCO2 43 41 VBG pO2 98 H 39 D VBG Base Excess 6 H 7 H 06/25/24 06/26/24 06/27/24 05:04 12:08 04:54 ABG pH 7.47 H 7.48 H ABG pCO2 43 45 ABG pO2 60 L 41 L* ABG HCO3 31 H 34 H ABG O2 Saturation 92 77 L ABG Base Excess 6 H 9 H VBG pH 7.43 VBG pCO2 47 VBG pO2 35 VBG Base Excess 6 H 06/27/24 06/28/24 06/28/24 06:23 04:27 13:19 ABG pH 7.47 H 7.55 H ABG pCO2 46 41 ABG pO2 157 H D 78 L D ABG HCO3 34 H 36 H ABG O2 Saturation 100 H 98 ABG Base Excess 9 H 13 H VBG pH 7.56 VBG pCO2 41 VBG pO2 41 VBG Base Excess 13 H 06/29/24 15:15 ABG pH ABG pCO2 ABG pO2 ABG HCO3 ABG O2 Saturation ABG Base Excess VBG pH 7.61 VBG pCO2 40 VBG pO2 76 H D VBG Base Excess 18 H Quality Measures Quality Measures VTE prophylaxis Assessment & Plan Assessment Current Active Medications: Generic Name Dose Route Start Last Admin Trade Name Freq PRN Reason Stop Dose Admin Acetaminophen 650 mg 06/15/24 13:50 Acetaminophen Supp 650 Mg Supp MO 07/15/24 13:49 Q4HR PRN PAIN SCALE 1-3 (mild Acetaminophen 650 mg 06/19/24 07:27 06/19/24 07:43 Acetaminophen Noreen 325 Mg/10 Ml Udc NG 07/19/24 07:26 650 mg Q4HR PRN Administration Pain Or Fever > 100.4 Protocol Acetylcysteine 3 ml 06/25/24 15:25 06/30/24 13:04 Acetylcysteine Noreen 20% 4 Ml Nebu INH 07/25/24 15:24 3 ml Q6HRRT LIZ Administration Al Hydrox/Mg Hydrox/Simethicone 30 ml 06/15/24 13:50 Mg Hyd/Al Hyd/[place] (Maalox Reg) Susp 30 Ml Udc NG 07/15/24 13:49 Q4HR PRN Heartburn or Upset Stomach Albuterol/Ipratropium 3 ml 06/25/24 15:25 06/30/24 13:04 Albuterol/Ipratropium (Duoneb) Rt Noreen 3 Ml Nebu INH 07/25/24 15:24 3 ml Q6HRRT LIZ Administration Aspirin 81 mg 06/23/24 09:00 06/30/24 08:39 Aspirin 81 Mg Chew PO 07/23/24 08:59 Not Given QDAY LIZ Atorvastatin Calcium 40 mg 06/21/24 21:00 06/29/24 20:18 Atorvastatin Calcium 20 Mg Tablet PO 07/21/24 20:59 Not Given HS LIZ Calcium Carbonate 600 mg 06/23/24 09:00 06/30/24 08:39 Calcium Carbonate 600 Mg Tablet NG 07/23/24 08:59 Not Given QDAY LIZ Dextrose 25 ml 06/24/24 13:46 Dextrose 50%-Water Inj 50 Ml Syringe IV 07/24/24 13:45 Q15MIN PRN BG 50-70 responsive npo pt Dextrose 50 ml 06/24/24 13:46 Dextrose 50%-Water Inj 50 Ml Syringe IV 07/24/24 13:45 Q15MIN PRN BG <50 OR BG <70 & pt unresponsive Enoxaparin Sodium 20 mg 06/30/24 09:00 06/30/24 08:45 Enoxaparin Sod Inj 30 Mg/0.3 Ml Syringe SC 07/14/24 08:59 20 mg QDAY LIZ Administration Ferrous Sulfate 300 mg 06/25/24 09:00 06/30/24 08:39 Ferrous Sulfate 300 Mg/5 Ml Udc NG 07/25/24 08:59 Not Given QDAY LIZ Fludrocortisone Acetate 0.2 mg 06/24/24 09:00 06/30/24 08:39 Fludrocortisone Acetate 0.1 Mg Tablet PO 07/24/24 08:59 Not Given QDAY LIZ Folic Acid 1 mg 06/29/24 16:00 06/30/24 08:46 Folic Acid Inj 1 Mg/0.2 Ml IVP 07/29/24 15:59 1 mg QDAY LIZ Administration Glucagon 1 mg 06/24/24 13:46 Glucagon Inj 1 Mg Vial IM Q15MIN PRN BG <70, and no IV access Cefazolin Sodium 2 gm in 100 mls @ 100 mls/hr 06/27/24 11:00 06/30/24 10:08 Ancef 2gm Ivpb IV 07/02/24 10:59 Infused Q8HR [facility] [place] Infusion Dextrose 112 ml/ Dextrose/ 1,000 mls @ 40 mls/hr 06/30/24 12:45 Sodium Chloride IV 07/01/24 12:44 .Q24H [facility] Insulin Human Lispro 0 unit 06/24/24 18:00 06/30/24 13:06 Insulin Lispro (Admelog) 1 Unit/0.01 Ml Unit SC 07/24/24 17:59 Not Given Q6HR [facility] Protocol Magnesium Hydroxide 30 ml 06/15/24 13:50 Milk Of Magnesia Susp 30 Ml Udc NG 07/15/24 13:49 QDAY PRN CONSTIPATION Midodrine 5 mg 06/23/24 14:00 06/30/24 05:08 Midodrine 5 Mg Tablet PO 07/23/24 13:59 Not Given TID [facility] [place] Multivitamins/Minerals 15 ml 06/19/24 15:15 06/30/24 08:39 Multivitamin 15 Ml Udc NG 07/19/24 15:14 Not Given QDAY [facility] Pantoprazole Sodium 40 mg 06/16/24 09:00 06/30/24 08:46 Pantoprazole Inj 40 Mg Vial IVP 07/16/24 08:59 40 mg QDAY [facility] Administration Pharmacy Consult 1 each 06/15/24 18:27 Pharmacy To Consult Pneumovacc XX 07/15/24 18:26 PRN PRN CONSULT Potassium Phos/Sodium Phos 1 packet 06/28/24 11:00 06/30/24 08:39 [facility] 1 Packet (1.5 Gm) PO 07/28/24 10:59 Not Given BID [facility] Sertraline HCl 100 mg 06/23/24 15:30 06/30/24 08:39 Sertraline Hcl 25 Mg Tablet NG 07/23/24 15:29 Not Given QDAY LIZ Sodium Chloride 3 ml 06/25/24 08:37 06/25/24 08:55 Sodium Chloride Rt Noreen 0.9% 3 Ml Nebu INH 07/25/24 08:36 3 ml PRN PRN Administration SOLN Thiamine HCl 100 mg 06/19/24 15:15 06/30/24 08:46 Thiamine Inj 100 Mg/Ml Vial 2 Ml IV 07/19/24 15:14 100 mg QDAY LIZ Administration Plan 54 Y/O F with PMHx significant for Downs Syndrome, Schizophrenia,blindness, IBS, presents with chief complaint of AMS, last known normal 9 pm last night, admitted to ICU for septic shock requiring pressors and acute hypoxic respiratory failure requiring intubation. Neuro: #Acute encephalopathy, improving Multifactorial: hypoxia, S/p shock Low density areas in both basal ganglia seen on head CT On Presidex tapering down, withdraws to pain -EEG ordered, was significant for anoxic brain injury -Treat underlying conditions -Neuro consult placed, follow up -Atorvastatin and aspirin -Hold plavix due to low hemoglobin, hematomas #Schizophrenia #Depression Patient home medication risperidone 4mg BID, Sertraline 100mg daily, Ziprasidone 60mg BID and zolpidem 10mg PO HS -Resumed sertraline 100mg daily, held due to n.p.o. -Other home meds only given by care provider as needed, will continue to hold Cardio: #No active issues -MAP goal 50 Pulm: #AHRF 2/2 MSSA pneumonia Patient has history of Down syndrome, risk for aspiration pneumonia. Bacterial and viral pneumonia both possible. Influenza panel negative. MRSA screen negative. Sedated and mechanically ventilated Extubated on 06/24/24, but reintubated on 06/25 Patient extubated for second time, still severely hypoxic, requiring high flow nasal cannula. -Sputum culture significant for MSSA pneumonia -Zosyn (06/16-06/18) changed to Unasyn (06/18-06/22) -Vancomycin pharmacy dosing (started 06/19-06/23) -On vancomycina 06/25-06/26 -On Meropenem 06/25-06/27 -On cefazolin 2 g 3 times daily 06/27/2024- -position patient has needed to maintain O2 saturations -Titrate FiO2 as tolerated -If patient requires re-intubation, surgery consult for tracheostomy #Atelectasis Patient had episode of acute hypoxic respiratory failure the day following extubation. Patient required BVM to maintain oxygenation, was placed on high flow nasal cannula. Chest x-ray showed consolidation of left lower lung lobe, indicating atelectasis due to aspiration versus mucous plugging. Patient was repositioned on the right side with immediate improvement in O2 saturation and work of breathing. -CPT -Avoid positioning on left side -High flow nasal cannula, titrate FiO2 as tolerated -Breathing treatments GI: #Severe protein malnutrition Patient BMI 14.9. Patient unable to provide history, per caregiver patient has good oral intake most times, has been malnourished for years due to chronic diarrhea, has not had significant weight loss recently. Patient has very little muscle mass, temporal wasting, sunken eyes. -Dietary consult, appreciate recommendations -Thiamine and multivitamin supplements -Tube feeds, advanced -daily labs -aggressive monitoring/repleating of potassium, phosphorous, magnesium -Strict n.p.o. s/p extubation -D10 NS at 40 mL/h #IBS Patient history of IBS. Patient had diarrhea for 3 days prior to admission, not unusual for patient. Patient has been having regular bowel movements during hospital stay. -Monitor bowel movements -Treat metabolic abnormalities as needed Renal: #Metabolic alkalosis Unclear etiology: Possibly due to refeeding syndrome, hydrocortisone use Patient has had metabolic alkalosis, slowly getting progressively worse. Initially to be contraction alkalosis, however patient has had progression despite being off diuresis. Patient has inadequate respiratory compensation, pCO2 lower than expected for patient's serum bicarb. Serum bicarb 37.2, VBG showed pH 7.6, pCO2 40. -Monitor daily labs -Urine electrolytes studies pending Endo: #Adrenal insufficiency Suspect due to chronic malnutrition. Patient arrived with hypotension, hypernatremia. Patient has been hypokalemic despite repletion and bradycardic. Clinical improvement with hydrocortisone followed by worsening when dosage reduced. -Fludracortisone increased to 0.2mg OG daily held as patient is n.p.o. -Hydrocortisone 100 mg 3 times daily -monitor sodium and potassium #Hyperglycemia Patient has mild hyperglycemia, trending up. No history of diabetes. Likely due to steroid treatment. -Started on SSI lispro q6h -Insulin Lantus 5 units at bedtime x 1 -Monitor Heme: #Hematomas, resolved Hematomas in bilateral inguinal folds as complications of attempted femoral arterial line placement. Hematomas have resolved, leaving bruises and inguinal folds. -Monitor #Macrocytic anemia Patient hemoglobin 9.2, MCV 114. No previous labs to compare to. No obvious signs of acute bleeding. On 06/23: Hb 6.9, transfused 1 unit PRBC Folate and B12 not depleted. -Monitor #Leukocytosis Likely due to aspiration pneumonia and glucocorticosteroid. -Monitor ID: #MSSA bacteremia Blood cultures positive for MSSA bacteremia. Central line removed. Source is MSSA pneumonia. -Repeat blood cultures 06/29, follow-up -Cefazolin 2 g 3 times daily #Aspiration Pneumonia Patient in acute hypoxic respiratory failure, chest x-ray with left-sided consolidations. -On Unasyn (completed) -On Meropenem 06/25-06/27 -On cefazolin 2 g 3 times daily for GPC bacteremia and MSSA pneumonia. (started 06/27) Skin/MSK: #No active issues Lines: RIJ/PIV DVT prophylaxis: Lovenox G.I prophylaxis: Pantoprazole Code: Full code Plan of care discussed with attending Dr. Ashley. Live Cerrato MD PGY-1 Attending Provider Attestation/Addendum Patient seen and examined with above resident, Live Rojas MD. I agree with the findings, assessment, and plan of care as documented except for any differences below. Patient continues to have worsening hypoxia ultimately now on maximum/near maximum support with high humidity/high flow nasal cannula. Patient is not an ideal candidate for BiPAP due to very limited medication from developmental delay and questionable ability to adequately protect airway which I think is a precipitant for her recurrent episodes of possible aspiration pneumonia. Patient completing course of appropriate antibiotics based on prior culture data with MSSA bacteremia. Blood cultures repeated with no subsequent growth. Patient's caregiver, Ayala, was present at bedside and I did have a detailed discussion with her about goals of care. They remain adamant about aggressive measures including tracheostomy and gastrostomy tube. They are aware that the patient's overall condition continues to decline with malnutrition and catabolic state in the setting of severe infection with septic shock on arrival and recurrent failure to wean despite correction and adequate treatment for underlying disease and passing multiple spontaneous breathing trials. She has shown adequate ability to protect her airway on multiple occasions though this further declines as she subsequently gets sicker and ultimately requires reintubation which I suspect next 24 hours. We will pursue a tracheostomy and PEG tube placement without plan to attempt extubate again. Her caregiver Ayala is in agreement and will discuss this with with the additional family members. Total critical care time: I personally spent 45 minutes for review of physiologic parameters, directing plan of care throughout the day, and extensive counseling patient's caregiver/family at bedside. This is exclusive of time spent teaching of staff or performing any separate billable procedures. Patient continues to require critical care services for acute hypoxic respiratory failure secondary to MSSA bacteremia and pneumonia and further deconditioning. She continues to be at high risk for morbidity and mortality requiring access to the immediate/aggressive intervention as appropriate only in the intensive care setting.
[2024-06-30] MEDS: [UNRECOGNIZED DRUG - OTHER] IV (13:53)
[2024-06-30] MEDS: DEXTROSE IV (13:53)
--- NOTE | 2024-06-30 15:56 | PC.SS ---
Update: Patient is on high flow nasal cannula 40L. Patient is not receiving pressors. Patient on strict NPO status. Discussion with decision maker regarding possible Trach placement and subsequent LTAC placement conducted.
[2024-06-30] MEDS: INSULIN LISPRO (AdmeLOG) 1 UNIT/0.01 ML UNIT SC (23:53)
[2024-07-01] VITALS (106 sets, daily range): BP systolic 55–158; BP diastolic 37–95; PULSE 72–158; RESP 11–30; TEMP 36.8–37.6; O2SAT 78–100
[2024-07-01] MEDS: ALBUTEROL/IPRATROPIUM (Duoneb) RT SOL 3 ML NEBU INH ×6 (00:54→23:02)
[2024-07-01] MEDS: ACETYLCYSTEINE SOL 20% 4 ML NEBU 3 ML INH ×6 (00:54→23:02)
--- NOTE | 2024-07-01 01:54 | XR_ITS ---
Examination: AP chest single view Technique: AP portable semiupright chest single view Exam date and time: July 01, 2024 0203 hrs. Comparison June 30, 2024 Indications: Difficulty breathing this week, history significant pneumonia and volume loss left lung on chest film June 30, 2024 Findings: Significant bilateral perihilar lung opacity, most dense in the left lower lobe with air distended stomach and elevation left hemidiaphragm No pneumothorax Normal heart size Significant osteopenia Significant hyperexpansion Impression: Bilateral pneumonia Atelectasis and pneumonia most prominent in the left lower lobe Air distended stomach
--- NOTE | 2024-07-01 02:13 | PC.SS ---
pt had an episode of desaturation in the 40s immediately went to assess pt, DR. Guadalupe was at bedside with nurses, increased high flow 40L 100%, pt reposition a pillow added under her left side, started ventilating pt for about 3 min at 100% fio2 DR. Guadalupe assissting with getting a better mask seal, pt went back up to the mid 90s, 96% coughing auscultated coarse bs, pt was oral suction moderate amount of velasquez sputum suctioned,
--- NOTE | 2024-07-01 02:35 | PC.RT ---
pt coughing went into room spo2 dropping to the 70s, started ventilating pt with ambubag 100% fio2 nurse assisting with getting a a better mask seal spo2 improved to 89%, pt place back on high flow 40L 100% spo2, spo2 improved to the 99%.
--- NOTE | 2024-07-01 03:39 | PC.RT ---
pt another episode of desaturation sounded wet and had a wet cough, suctioned a tick amount of velasquez moderate sputum, spo2 improved, to the 90s, DR. Guadalupe made aware of having episodes of desaturation and on 40L 100% max out on high flow, does not want pt on bipap at this time, mucomyst and duoneb changed to Q4h as well as cpt per DR. Guadalupe.
--- NOTE | 2024-07-01 05:57 | XR_ITS ---
Examination: AP chest single view Indications: Hypoxic respiratory failure postintubation Exam date and time: July 01, 2024 0610 hrs. Comparison July 01, 2024 0203 hrs. Findings: Tracheal tube tip is in the right mainstem bronchus Hyperexpansion right lung and volume loss left lung Bilateral perihilar opacity Orogastric tube in the stomach although there appears to be gastric dilatation Normal heart size Hyperexpansion Impression:: Retract the endotracheal tube 4 cm
--- NOTE | 2024-07-01 06:03 | PD.EDADDENDU ---
Emergency Room Addendum Addendum Narrative: I was called and informed that this patient needed to be intubated due to saturating in the 60s. Etomidate 10mg given at 0554. Rocuronium 40mg given at 0556. Patient was intubated at 0556. Procedures -ED Intubation Time out performed: No sedative: Etomidate Mg Given: 10 paralytic: Rocuronium Mg Given: 40 Laryngoscope: fiber optic video scope Assist Device Used: fiber optic device ET Tube Size: 5.5 ET Tube Uncuffed: No Tube Secured Depth (cm): 21 Tube Secured Location: lips Tube Placement Confirmation: visualized tube passing through cords, equal breath sounds bilaterally, no breath sounds over epigastrium and confirmation by capnometry Patient Tolerated Procedure: well and no complications
[2024-07-01] MEDS: Norepinephrine/D5W 8mg/250ml 8 MG/250 ML BAG 1.978 MG IV (06:10)
[2024-07-01] MEDS: ceFAZolin/D5W 2 GM IV 2 GM/100 ML BAG IV ×3 (06:16→21:34)
[2024-07-01] MEDS: ROCURONIUM INJ 10 MG/ML VIAL 10 ML 40 MG IVP (06:51)
[2024-07-01] MEDS: ETOMIDATE INJ 2 MG/ML VIAL 10 ML 10 MG IVP (06:51)
[2024-07-01 07:09] LABS: Base Excess 13 (-3-3); HCO3 41 mEq/L (20-26); Inspired Oxygen, FIO2 100 %; O2 Saturation 95 % (91-98); PCO2 67 mmHg (32.0-48.0); PO2 80 mmHg (83-108); pH, Arterial 7.39 (7.35-7.45)
[2024-07-01 07:12] LABS: Allen Test Performed/OK; Puncture Site Right Brachial
--- NOTE | 2024-07-01 07:27 | XR_ITS ---
Examination: AP chest single view Technique one AP portable semiupright chest single view Exam date and time: July 01, 2024 at 0740 hrs. Comparison July 01, 2024 0610 hrs. Indications: Hypoxic respiratory failure postintubation, repositioned endotracheal tube Findings: Endotracheal tube tip 2.8 cm above tiki Normal heart size Orogastric tube tip distal stomach Hyperexpansion Bilateral perihilar opacity Elevation left hemidiaphragm Significant hyperexpansion Impression: Endotracheal tube tip 2.8 cm above tiki
[2024-07-01] MEDS: PANTOPRAZOLE INJ 40 MG VIAL IVP (08:05)
[2024-07-01] MEDS: MIDODRINE 5 MG TABLET PO ×3 (08:05→21:35)
[2024-07-01] MEDS: FOLIC ACID INJ 1 MG/0.2 ML IVP (08:05)
[2024-07-01] MEDS: THIAMINE INJ 100 MG/ML VIAL 2 ML IV (08:05)
[2024-07-01] MEDS: NAPH,KPH MBDB 1 PACKET (1.5 GM) PO ×2 (08:06→21:35)
[2024-07-01] MEDS: CALCIUM CARBONATE 600 MG TABLET NG (08:06)
[2024-07-01] MEDS: ASPIRIN 81 MG CHEW PO (08:06)
[2024-07-01] MEDS: ENOXAPARIN SOD INJ 30 MG/0.3 ML SYRINGE 20 MG SC (08:06)
[2024-07-01] MEDS: FLUDROCORTISONE ACETATE 0.1 MG TABLET 0.2 MG PO (08:06)
[2024-07-01] MEDS: Ferrous Sulfate 300 MG/5 ML UDC NG (08:07)
[2024-07-01] MEDS: SERTRALINE HCL 25 MG TABLET 100 MG NG (08:18)
[2024-07-01] MEDS: MULTIVITAMIN 15 ML UDC NG (08:18)
[2024-07-01 08:50] LABS: Basophils % (Auto) 0 % (0-2.5); Eosinophils % (Auto) 0 % (0-10); Hemoglobin 10.4 g/dL (12.0-16.0); Immature Granulocytes % (Auto) 2 % (0-0); Immature Granulocytes Auto 0.47 Thou/mm3 (0.00-0.00); Lymphocytes # (Auto) 0.7 Thou/mm3 (1.0-4.8); Lymphocytes % (Auto) 3 % (10-50); Mean Corpuscular HGB Conc 32.5 g/dl (31.0-37.0); Mean Corpuscular Hemoglobin 32.8 pg (25.0-35.0); Mean Corpuscular Volume 101 fL (80-100); Monocytes # (Auto) 0.4 Thou/mm3 (0.0-0.8); Monocytes % (Auto) 2 % (0-12); Neutrophils # (Auto) 24.8 Thou/mm3 (1.8-7.7); Neutrophils % (Auto) 94 % (37-80); Nucleated Red Blood Cell # 0.03 Thou/mm3 (0.00-0.00); Nucleated Red Blood Cell % 0 /100 WBC (0); Platelet Count 382 Thou/mm3 (140-440); RDW Standard Deviation 66.1 fL (36.4-46.3); Red Blood Count 3.17 Miln/mm3 (4.00-5.20); White Blood Count 26.4 Thou/mm3 (3.6-11.0)
[2024-07-01 09:24] LABS: Alanine Aminotransferase < 7 U/L (10-49); Alkaline Phosphatase 132 U/L (46-116); Anion Gap 10 (7-16); Aspartate Amino Transferase 27 U/L (0-34); BUN/Creatinine Ratio 20 Ratio (12-20); Bilirubin,Total 0.3 mg/dL (0.3-1.2); Blood Urea Nitrogen 20 mg/dL (9-23); Calcium 8.4 mg/dL (8.3-10.6); Calcium (Corrected) 9.2 mg/dL (8.5-10.1); Carbon Dioxide 33.2 mMol/L (20.0-31.0); Chloride 95 mMol/L (98-107); Estimated Creatinine Clearance 18.5 mL/min (>60); Globulin 2.9 gm/dL (2.3-3.5); Glucose 317 mg/dL (74-106); Osmolality,Calculated 290 (275-295); Phosphorous 4.2 mg/dL (2.4-5.1); Potassium 2.8 mMol/L (3.4-5.1); Sodium 138 mMol/L (136-145); Total Protein 5.9 gm/dL (5.7-8.2); eGFR > 60 See Note
[2024-07-01] MEDS: POTASSIUM CHL 10 mEq IVPB 10 MEQ/100 ML BAG 100 MEQ IV ×4 (10:17→13:20)
[2024-07-01] MEDS: POTASSIUM CHLORIDE 10% 20 MEQ/15 ML UDC 40 MEQ GT (10:21)
--- NOTE | 2024-07-01 10:21 | PC.SS ---
SUPERVISOR FRAME SAMPLE AND PATTERN attempted phone call with [facility] staff, Niya ; to provide update. No response SUPERVISOR FRAME SAMPLE AND PATTERN left voicemail with update.
[2024-07-01] MEDS: INSULIN LISPRO (AdmeLOG) 1 UNIT/0.01 ML UNIT SC (11:36)
--- NOTE | 2024-07-01 13:15 | PC.SS ---
Update: Plan is for the patient to obtain PEG placement tomorrow. Trach placement planned for .
--- NOTE | 2024-07-01 13:50 | PD.RESPRO ---
Documentation for date of: 07/01/24 Subjective Subjective Interval history: 54 Y/O F with PMHx significant for Downs Syndrome, Schizophrenia,blindness, IBS, presents with chief complaint of AMS, last known normal 9 pm last night. Patient in unable to provide history, history taken from caregiver at bedside. Patient has had cough for about five days, noted sore throat. Patient has had diarrhea for 3 days, which is not uncommon for patient due to IBS. Patient was last seen at 9 pm last night. This morning patient was found unresponsive in her bed by caregiver. Patient is brought to ED, patient found to have low GCS, hypoxia with O2 sat 60% on nonrebreather, blood pressure 84 over palp. Patient was started on pressors, intubated. Patient had CODE BLUE, with 1 dose of epi before ROSC. Patient ventilated, started on sedation with propofol. Patient given 7 to 50 mL normal saline bolus and Rocephin in the ED. Blood urine and sputum cultures taken. 06/24/2024: The patient was examined and evaluated at the bedside this morning. The patient seemed more alert today. Patient was on pressor support with Levophed 0.08, vasopressin 0.03 and dopamine 10, breathing spontaneously on mechanical ventilation with pressure support. White count trended down to 17.4, hemoglobin 7.8, sodium stable at 124, potassium 3.4, calcium 8.3, magnesium 1.7 and we repleted magnesium 2 g IV, started on calcium carbonate 600 Mg daily, blood sugar 293, started the patient on SSI sensitive scale. 40 mEq of KCl was repleted. The phosphorus was 2.5, and we increased the dose of Neutra-Phos to 2 packs twice daily. The patient was successfully extubated to oxy mask. Discussion regarding the decision maker was done by me with patient's sister Annamarie Wilson in the presence of SRIKANTH Julian. Patient's Sister Annamarie Wilson verbally stated that Ayala Putnam, who has been the water control station engineer of the patient would be the decision maker for the patient for medical management and CODE STATUS changes. 06/25/2024: The patient was examined and evaluated at the bedside this morning. Overnight, the patient was desaturating in 80s, and was started on NC, transitioned to oxy mask, transition to BiPAP and finally was reintubated. Chest x-ray was significant for left lower lung pneumonia, likely secondary to aspiration pneumonia as patient was recently extubated, and given her underlying severe malnutrition was started on tube feed. Patient is on fentanyl drip to maintain RASS of 0, and on pressor support with Levophed, vasopressin and dopamine. She continues to be in sinus bradycardia. White count elevated to 13.5 in the setting of aspiration pneumonia, sodium continues to be 125, and she was given 500 cc of IV normal saline bolus, potassium 3.4 and was given 40 mEq of KCl. 06/26/2024: The patient was examined and evaluated at the bedside this morning. Overnight, patient did not had any acute overnight events. White count mildly trended down to 31.2, cultures pending, we discontinued linezolid and we will continue with meropenem at this point. Patient tapered down on dopamine to 7.5, and other pressor support discontinued. We considered for MAP to be stable if greater than 50, as demonstrated by normal lactic acid level at MAP greater than 50. The plan is to extubate the patient tomorrow morning. 06/27/2024: The patient was examined and evaluated at the bedside this morning again. Overnight no acute events. White count trended down to 21.5, ABG revealed pH 7.47, pCO2 46, and bicarb 34. Potassium was 2.8, and was repleted. Blood sugar this morning was 278 with mild transaminitis. We stopped dopamine drip, and the MAP goal is greater than 50. We will try for SBT tomorrow morning. Goals of care discussion was done, and Ayala Putnam who is the decision-maker recommended to proceed with tracheostomy tube if required. 06/28/2024: Patient seen and examined at bedside. Overnight patient became agitated with worsening sinus tachycardia, received 0.5 mg Ativan x 1, after which patient became hypotensive requiring Levophed to be resumed. Levophed titrate down to 0.03, held there to maintain MAP while patient is extubated. On exam patient is more active, opening eyes and moving all extremities. Patient tolerated pressure support well, with successfully extubated without complications. Patient strict n.p.o. VBG showed pH 7.56, pCO2 41, pO2 41. Lactate 2.0. Phosphorus 2.1, received 15 mmol potassium phosphate. Central line removed, Levophed transferred to peripheral IV. 06/29/2024: Patient seen and examined at bedside. Patient was reportedly very active overnight. In the morning, patient became acutely hypoxic, required BVM to maintain oxygen saturations. Chest x-ray showed consolidation of left lung base indicating atelectasis, possibly due to aspiration versus mucous plugging. Patient was repositioned on the right side and placed on high flow nasal cannula with immediate improvement in oxygenation. Will continue to titrate FiO2 as tolerated by patient. Levophed was discontinued. Repeat blood cultures drawn today for MSSA bacteremia. 06/30/2024: Patient seen and examined at bedside. In the morning patient had episode of desaturation down to low 80s. Patient was repositioned and sat up, high flow nasal cannula increased to 100% FiO2 at 40 L/min. Oxygen saturation improved. Goals of care conversation held with water control station engineer, explained that patient required intubation patient required tracheostomy and PEG tube placement for long-term rehabilitation. Tractor Operator fully understands and wishes to proceed with full and aggressive treatment. Plan to have patient sit up in chair and attempt to maintain O2 saturations, if needed will reintubate patient and consult general surgery for tracheostomy and PEG tube placement. Started patient on D10 NS for nutritional support. 07/01/2024: Patient seen and examined at bedside. In the tactical air control party manager patient had severe desaturation, was manually bagged for several hours but continued to have poor saturations and developed cyanosis. Patient was reintubated due to acute hypoxic respiratory failure. As per previous conversations with water control station engineer, general surgery consult placed for tracheostomy and GI consult placed for PEG tube placement. Tube feeds initiated. Patient not sedated, compliant with vent. Exam Vital Signs Temp Pulse Resp BP Pulse Ox O2 Del Method O2 Flow Rate 98.4 F 114 H 23 H 96/53 L 99 High Flow Nasal Cannula 40 07/01/24 07:00 07/01/24 13:12 07/01/24 13:00 07/01/24 13:12 07/01/24 13:00 06/30/24 19:00 07/01/24 00:54 FiO2 80 07/01/24 12:00 Narrative Exam PE: Gen: Extremely cachexic. Intubated. HEENT: Dry mucous membranes. Left eye heavily scarred, right eye glassy. Scarring around nares. CVS: normal S1 and S2. No M/R/G. Resp: No rhonchi, rales, crackles or wheezing. Diminished lung sounds, coarse. Abd: soft, non-tender, non-distended. MSK: No edema. Multiple old scars/wounds on all extremities, patient has history of self-inflicted injuries, picking at skin. Significant bruises at left/right inguinal folds. Neuro: Opens eyes to audible stimuli. Withdraws from pain. Objective Labs 07/01/24 08:38 07/01/24 08:38 Labs: Laboratory Results - last 24 hr 07/01/24 07/01/24 06:59 08:38 WBC 26.4 H D RBC 3.17 L Hgb 10.4 L Hct 32.0 L MCV 101 H MCH 32.8 MCHC 32.5 RDW Std Deviation 66.1 H Plt Count 382 D Neut % (Auto) 94 H Lymph % (Auto) 3 L [place] % (Auto) 2 Eos % (Auto) 0 Baso % (Auto) 0 Neut # (Auto) 24.8 H Lymph # (Auto) 0.7 L [place] # (Auto) 0.4 Eos # (Auto) 0.0 Baso # (Auto) 0.0 Immature Gran # (Auto) 0.47 H Absolute Nucleated RBC 0.03 H Immature Gran % 2 H Nucleated RBC % 0 Puncture Site Right Brachial ABG pH 7.39 ABG pCO2 67 H ABG pO2 80 L ABG HCO3 41 H ABG O2 Saturation 95 ABG Base Excess 13 H FiO2 100 Sodium 138 Potassium 2.8 L D Chloride 95 L Carbon Dioxide 33.2 H Anion Gap 10 BUN 20 Creatinine 1.0 Estim Creat Clear Calc 18.5 L eGFR > 60 BUN/Creatinine Ratio 20 Glucose 317 H D Calculated Osmolality 290 Calcium 8.4 Corrected Calcium 9.2 Phosphorus 4.2 Total Bilirubin 0.3 AST 27 ALT < 7 L Alkaline Phosphatase 132 H Total Protein 5.9 Albumin 3.0 L D Globulin 2.9 Albumin/Globulin Ratio 1.0 L ABG Interpretation ABG results: 06/15/24 06/15/24 06/15/24 11:06 14:05 17:00 ABG pH 7.23 L 7.33 L D 7.34 L ABG pCO2 69 H 56 H D 57 H ABG pO2 153 H 67 L D 65 L ABG HCO3 29 H 29 H 30 H ABG O2 Saturation 99 H 92 91 ABG Base Excess 0 3 4 H VBG pH VBG pCO2 VBG pO2 VBG Base Excess 06/16/24 06/17/24 06/18/24 04:04 04:36 04:04 ABG pH 7.35 7.42 7.53 H D ABG pCO2 57 H 54 H 57 H ABG pO2 58 L* 77 L 73 L ABG HCO3 31 H 35 H 47 H ABG O2 Saturation 88 L 96 96 ABG Base Excess 5 H 9 H 22 H VBG pH VBG pCO2 VBG pO2 VBG Base Excess 06/19/24 06/22/24 06/23/24 04:12 17:30 09:55 ABG pH 7.54 H ABG pCO2 50 H ABG pO2 61 L ABG HCO3 42 H ABG O2 Saturation 93 ABG Base Excess 18 H VBG pH 7.46 7.49 VBG pCO2 43 41 VBG pO2 98 H 39 D VBG Base Excess 6 H 7 H 06/25/24 06/26/24 06/27/24 05:04 12:08 04:54 ABG pH 7.47 H 7.48 H ABG pCO2 43 45 ABG pO2 60 L 41 L* ABG HCO3 31 H 34 H ABG O2 Saturation 92 77 L ABG Base Excess 6 H 9 H VBG pH 7.43 VBG pCO2 47 VBG pO2 35 VBG Base Excess 6 H 06/27/24 06/28/24 06/28/24 06:23 04:27 13:19 ABG pH 7.47 H 7.55 H ABG pCO2 46 41 ABG pO2 157 H D 78 L D ABG HCO3 34 H 36 H ABG O2 Saturation 100 H 98 ABG Base Excess 9 H 13 H VBG pH 7.56 VBG pCO2 41 VBG pO2 41 VBG Base Excess 13 H 06/29/24 07/01/24 15:15 06:59 ABG pH 7.39 ABG pCO2 67 H ABG pO2 80 L ABG HCO3 41 H ABG O2 Saturation 95 ABG Base Excess 13 H VBG pH 7.61 VBG pCO2 40 VBG pO2 76 H D VBG Base Excess 18 H Quality Measures Quality Measures VTE prophylaxis Assessment & Plan Assessment Current Active Medications: Generic Name Dose Route Start Last Admin Trade Name Freq PRN Reason Stop Dose Admin Acetaminophen 650 mg 06/15/24 13:50 Acetaminophen Supp 650 Mg Supp [place] 07/15/24 13:49 Q4HR PRN PAIN SCALE 1-3 (mild Acetaminophen 650 mg 06/19/24 07:27 06/19/24 07:43 Acetaminophen Noreen 325 Mg/10 Ml Udc NG 07/19/24 07:26 650 mg Q4HR PRN Administration Pain Or Fever > 100.4 Protocol Acetylcysteine 3 ml 07/01/24 07:00 07/01/24 11:12 Acetylcysteine Noreen 20% 4 Ml Nebu INH 07/31/24 06:59 3 ml Q4HRRT LIZ Administration Al Hydrox/Mg Hydrox/Simethicone 30 ml 06/15/24 13:50 Mg Hyd/Al Hyd/[place] (Maalox Reg) Susp 30 Ml Udc NG 07/15/24 13:49 Q4HR PRN Heartburn or Upset Stomach Albuterol/Ipratropium 3 ml 07/01/24 07:00 07/01/24 11:12 Albuterol/Ipratropium (Duoneb) Rt Noreen 3 Ml Nebu INH 07/31/24 06:59 3 ml Q4HRRT LIZ Administration Aspirin 81 mg 06/23/24 09:00 07/01/24 08:06 Aspirin 81 Mg Chew PO 07/23/24 08:59 81 mg QDAY LIZ Administration Atorvastatin Calcium 40 mg 06/21/24 21:00 06/30/24 19:28 Atorvastatin Calcium 20 Mg Tablet PO 07/21/24 20:59 Not Given HS LIZ Calcium Carbonate 600 mg 06/23/24 09:00 07/01/24 08:06 Calcium Carbonate 600 Mg Tablet NG 07/23/24 08:59 600 mg QDAY LIZ Administration Dextrose 25 ml 06/24/24 13:46 Dextrose 50%-Water Inj 50 Ml Syringe IV 07/24/24 13:45 Q15MIN PRN BG 50-70 responsive npo pt Dextrose 50 ml 06/24/24 13:46 Dextrose 50%-Water Inj 50 Ml Syringe IV 07/24/24 13:45 Q15MIN PRN BG <50 OR BG <70 & pt unresponsive Enoxaparin Sodium 20 mg 06/30/24 09:00 07/01/24 08:06 Enoxaparin Sod Inj 30 Mg/0.3 Ml Syringe SC 07/14/24 08:59 20 mg QDAY LIZ Administration Ferrous Sulfate 300 mg 06/25/24 09:00 07/01/24 08:07 Ferrous Sulfate 300 Mg/5 Ml Udc NG 07/25/24 08:59 300 mg QDAY LIZ Administration Fludrocortisone Acetate 0.2 mg 06/24/24 09:00 07/01/24 08:06 Fludrocortisone Acetate 0.1 Mg Tablet PO 07/24/24 08:59 0.2 mg QDAY LIZ Administration Folic Acid 1 mg 06/29/24 16:00 07/01/24 08:05 Folic Acid Inj 1 Mg/0.2 Ml IVP 07/29/24 15:59 1 mg QDAY LIZ Administration Glucagon 1 mg 06/24/24 13:46 Glucagon Inj 1 Mg Vial IM Q15MIN PRN BG <70, and no IV access Cefazolin Sodium 2 gm in 100 mls @ 100 mls/hr 06/27/24 11:00 07/01/24 13:06 Ancef 2gm Ivpb IV 07/02/24 10:59 100 mls/hr Q8HR LIZ Administration Norepinephrine/Dextrose 8 mg in 250 mls @ 1.978 mls/hr 07/01/24 06:04 07/01/24 07:00 Levophed In D5w 8mg/250ml IV 07/31/24 06:03 0 mcg/kg/min .Q24H PRN 0 mls/hr PER PROTOCOL Titration Protocol 0.05 MCG/KG/MIN Fentanyl Citrate 2,500 mcg in 250 mls @ 2.5 mls/hr 07/01/24 06:05 Sublimaze Inj 2,500 Mcg/250 Ml Bag IV 07/06/24 06:04 .Q24H PRN PER PROTOCOL Protocol 25 MCG/HR Potassium Chloride 10 meq in 100 mls @ 100 mls/hr 07/01/24 10:10 07/01/24 13:20 Kcl Ivpb IV 07/01/24 14:09 100 mls/hr Q1H LIZ Administration Insulin Human Lispro 0 unit 06/24/24 18:00 07/01/24 11:36 Insulin Lispro (Admelog) 1 Unit/0.01 Ml Unit SC 07/24/24 17:59 2 unit Q6HR LIZ Administration Protocol Magnesium Hydroxide 30 ml 06/15/24 13:50 Milk Of Magnesia Susp 30 Ml Udc NG 07/15/24 13:49 QDAY PRN CONSTIPATION Midazolam HCl 2 mg 07/01/24 06:05 Midazolam Inj 1 Mg/Ml Vial 2 Ml IV 07/06/24 06:04 Q1HR PRN AGITATION OR ANXIETY Midodrine 5 mg 06/23/24 14:00 07/01/24 13:12 Midodrine 5 Mg Tablet PO 07/23/24 13:59 5 mg TID LIZ Administration Multivitamins/Minerals 15 ml 06/19/24 15:15 07/01/24 08:18 Multivitamin 15 Ml Udc NG 07/19/24 15:14 15 ml QDAY LIZ Administration Pantoprazole Sodium 40 mg 06/16/24 09:00 07/01/24 08:05 Pantoprazole Inj 40 Mg Vial IVP 07/16/24 08:59 40 mg QDAY LIZ Administration Pharmacy Consult 1 each 06/15/24 18:27 Pharmacy To Consult Pneumovacc XX 07/15/24 18:26 PRN PRN CONSULT Potassium Phos/Sodium Phos 1 packet 06/28/24 11:00 07/01/24 08:06 [facility]db 1 Packet (1.5 Gm) PO 07/28/24 10:59 1 packet BID LIZ Administration Sertraline HCl 100 mg 06/23/24 15:30 07/01/24 08:18 Sertraline Hcl 25 Mg Tablet NG 07/23/24 15:29 100 mg QDAY LIZ Administration Sodium Chloride 3 ml 06/25/24 08:37 06/25/24 08:55 Sodium Chloride Rt Noreen 0.9% 3 Ml Nebu INH 07/25/24 08:36 3 ml PRN PRN Administration SOLN Thiamine HCl 100 mg 06/19/24 15:15 07/01/24 08:05 Thiamine Inj 100 Mg/Ml Vial 2 Ml IV 07/19/24 15:14 100 mg QDAY LIZ Administration Plan 54 Y/O F with PMHx significant for Downs Syndrome, Schizophrenia,blindness, IBS, presents with chief complaint of AMS, last known normal 9 pm last night, admitted to ICU for septic shock requiring pressors and acute hypoxic respiratory failure requiring intubation. Neuro: #Acute encephalopathy, improving Multifactorial: hypoxia, S/p shock Low density areas in both basal ganglia seen on head CT On Presidex tapering down, withdraws to pain -EEG ordered, was significant for anoxic brain injury -Treat underlying conditions -Neuro consult placed, follow up -Atorvastatin and aspirin -Hold plavix due to low hemoglobin, hematomas #Schizophrenia #Depression Patient home medication risperidone 4mg BID, Sertraline 100mg daily, Ziprasidone 60mg BID and zolpidem 10mg PO HS -Resumed sertraline 100mg daily -Other home meds only given by care provider as needed, will continue to hold Cardio: #No active issues -MAP goal 50 Pulm: #AHRF 08/03 MSSA pneumonia Patient has history of Down syndrome, risk for aspiration pneumonia. Bacterial and viral pneumonia both possible. Influenza panel negative. MRSA screen negative. Sedated and mechanically ventilated Extubated on 06/24/24, but reintubated on 06/25 Patient extubated for second time, still severely hypoxic, requiring high flow nasal cannula. Patient desatted despite several hours of manual bagging, required reintubation. -Sputum culture significant for MSSA pneumonia -On cefazolin 2 g 3 times daily 06/27/2024- -General Surgery consulted for trach placement -Titrate FiO2 as tolerated #Atelectasis Patient had episode of acute hypoxic respiratory failure the day following extubation. Patient required BVM to maintain oxygenation, was placed on high flow nasal cannula. Chest x-ray showed consolidation of left lower lung lobe, indicating atelectasis due to aspiration versus mucous plugging. Patient was repositioned on the right side with immediate improvement in O2 saturation and work of breathing. -CPT -Avoid positioning on left side -Breathing treatments -Intubated GI: #Severe protein malnutrition Patient BMI 14.9. Patient unable to provide history, per caregiver patient has good oral intake most times, has been malnourished for years due to chronic diarrhea, has not had significant weight loss recently. Patient has very little muscle mass, temporal wasting, sunken eyes. -Dietary consult, appreciate recommendations -Thiamine and multivitamin supplements -Tube feeds, advanced -daily labs -aggressive monitoring/repleating of potassium, phosphorous, magnesium -Tube feeds -GI consult placed for PEG tube placement, hold feeds after midnight #IBS Patient history of IBS. Patient had diarrhea for 3 days prior to admission, not unusual for patient. Patient has been having regular bowel movements during hospital stay. -Monitor bowel movements -Treat metabolic abnormalities as needed Renal: #Metabolic alkalosis Unclear etiology: Possibly due to refeeding syndrome, hydrocortisone use Patient has had metabolic alkalosis, slowly getting progressively worse. Initially to be contraction alkalosis, however patient has had progression despite being off diuresis. Patient has inadequate respiratory compensation, pCO2 lower than expected for patient's serum bicarb. Serum bicarb 37.2, VBG showed pH 7.6, pCO2 40. Urine electrolyte studies showed random sodium 81, potassium 60, creatinine chloride 98.9. Metabolic alkalosis significantly improved after IVF normal saline. -Monitor daily labs -Continue tube feeds Endo: #Adrenal insufficiency Suspect due to chronic malnutrition. Patient arrived with hypotension, hypernatremia. Patient has been hypokalemic despite repletion and bradycardic. Clinical improvement with hydrocortisone followed by worsening when dosage reduced. -Fludracortisone increased to 0.2mg OG daily -Hydrocortisone 100 mg 3 times daily -monitor sodium and potassium #Hyperglycemia Patient has mild hyperglycemia, trending up. No history of diabetes. Likely due to steroid treatment. -Started on SSI lispro q6h -Monitor Heme: #Hematomas, resolved Hematomas in bilateral inguinal folds as complications of attempted femoral arterial line placement. Hematomas have resolved, leaving bruises and inguinal folds. -Monitor #Macrocytic anemia Patient hemoglobin 9.2, MCV 114. No previous labs to compare to. No obvious signs of acute bleeding. On 06/23: Hb 6.9, transfused 1 unit PRBC Folate and B12 not depleted. -Monitor #Leukocytosis Likely due to aspiration pneumonia and glucocorticosteroid. -Monitor ID: #MSSA bacteremia Blood cultures positive for MSSA bacteremia. Central line removed. Source is MSSA pneumonia. -Repeat blood cultures 06/29, follow-up -Cefazolin 2 g 3 times daily #Aspiration Pneumonia Patient in acute hypoxic respiratory failure, chest x-ray with left-sided consolidations. -On Unasyn (completed) -On Meropenem 06/25-06/27 -On cefazolin 2 g 3 times daily for GPC bacteremia and MSSA pneumonia. (started 06/27) Skin/MSK: #No active issues Lines: RIJ/PIV DVT prophylaxis: Lovenox G.I prophylaxis: Pantoprazole Code: Full code Plan of care discussed with attending Dr. Ashley. Live Cerrato MD PGY-1 Attending Provider Attestation/Addendum Patient seen and examined with above resident, Sammy Cerrato MD. I agree with the findings, assessment, plan of care as documented except for any differences below. Patient unfortunately required reintubation overnight. This was not unexpected ultimately given the patient's deconditioning and catabolic state. Despite adequate treatment for MSSA bacteremia and pneumonia, patient is too frail ability to recover and has failed to extubation attempts. Prior to reintubation, I did have extensive discussion as documented with the primary caregiver/decision maker who would like to continue all aggressive means including tracheostomy and PEG placement. Given this, patient remains stable and will contact general surgery as well as gastroenterology for procedures after the holiday with plan to transition to [facility] facility thereafter for prolonged weaning from mechanical ventilation. Would avoid starting oral feeds given the patient's limited mental status and developmental delay which will make it further difficult for her to swallow appropriately and safely with inflated cuff on ventilator. I did reassure caregiver today that these things are reversible and may not be needed ultimately in the long-term if the patient can continue to show improvement in her conditioning or an extended period of time. Total critical care time: I personally spent 35 minutes for review of physiologic parameters, directing plan of care throughout the day, coordination of care with other specialists, and counseling patient's caregiver/family at bedside. This is exclusive of time spent teaching housestaff or performing separate billable procedures.
[2024-07-01] MEDS: ATORVASTATIN CALCIUM 20 MG TABLET 40 MG PO (21:35)
--- NOTE | 2024-07-01 21:51 | PD.IMCONS ---
HPI Data of Consult Requesting Physician: Tyrell Ashley MD Primary Care Provider: Jayce Muñiz MD Consult Narrative Reason for consult: Evaluation for PEG tube placement History of present illness: 54 years old female who was admitted on 06/15/2024 with altered mental status He has a longstanding history of Down syndrome schizophrenia blindness On admission she was intubated because of acute hypoxic respiratory failure got extubated and reintubated again yesterday because of the desaturation I been asked for placement of a PEG tube for long-term management She is also heading for a possible tracheostomy cc:: cc: Tyrell Ashley MD Review of Systems Review of Systems ROS Unobtainable: unobtainable due to medical condition Past Medical History Surgical History OTHER SURGICAL HX: As in the history of present illness Meds Home Medications and Allergies Home Medications ?Medication ?Instructions ?Recorded ?Confirmed ?Type gemfibrozil 600 mg tablet 600 mg PO BID 06/16/24 06/16/24 History risperidone 4 mg tablet 4 mg PO BID 06/16/24 06/16/24 History sertraline 100 mg tablet 100 mg PO QDAY 06/16/24 06/16/24 History ziprasidone HCl 60 mg capsule 60 mg PO BID 06/16/24 06/16/24 History zolpidem 10 mg tablet 10 mg PO HS 06/16/24 06/16/24 History Allergies Allergy/AdvReac Type Severity Reaction Status Date / Time No Known Allergies Allergy Unverified 06/15/24 10:42 Exam Vital Signs Temp Pulse Resp BP Pulse Ox O2 Del Method O2 Flow Rate 98.4 F 88 22 H 63/48 L 99 High Flow Nasal Cannula 40 07/01/24 16:00 07/01/24 21:35 07/01/24 19:10 07/01/24 21:35 07/01/24 19:30 06/30/24 19:00 07/01/24 00:54 FiO2 50 07/01/24 19:10 Constitutional Comments: Very cachectic appearing female Routine Respiratory Exam Comments: Mechanically ventilated Routine Abdominal Exam Comments: Soft nontender Results Labs 07/02/24 05:20 07/02/24 05:20 Labs: Short CBC 07/01/24 Range/Units 08:38 WBC 26.4 H D (3.6-11.0) Thou/mm3 Hgb 10.4 L (12.0-16.0) g/dL Hct 32.0 L (36.0-46.0) % Plt Count 382 D (140-440) Thou/mm3 BMP 07/01/24 08:38 Sodium 138 Potassium 2.8 L D Chloride 95 L Carbon Dioxide 33.2 H BUN 20 Creatinine 1.0 Glucose 317 H D Calcium 8.4 Liver Function 07/01/24 Range/Units 08:38 Total Bilirubin 0.3 (0.3-1.2) mg/dL AST 27 (0-34) U/L ALT < 7 L (10-49) U/L Alkaline Phosphatase 132 H (46-116) U/L Albumin 3.0 L D (3.5-5.0) gm/dL ABG Interpretation ABG results: 06/15/24 06/15/24 06/15/24 11:06 14:05 17:00 ABG pH 7.23 L 7.33 L D 7.34 L ABG pCO2 69 H 56 H D 57 H ABG pO2 153 H 67 L D 65 L ABG HCO3 29 H 29 H 30 H ABG O2 Saturation 99 H 92 91 ABG Base Excess 0 3 4 H VBG pH VBG pCO2 VBG pO2 VBG Base Excess 06/16/24 06/17/24 06/18/24 04:04 04:36 04:04 ABG pH 7.35 7.42 7.53 H D ABG pCO2 57 H 54 H 57 H ABG pO2 58 L* 77 L 73 L ABG HCO3 31 H 35 H 47 H ABG O2 Saturation 88 L 96 96 ABG Base Excess 5 H 9 H 22 H VBG pH VBG pCO2 VBG pO2 VBG Base Excess 06/19/24 06/22/24 06/23/24 04:12 17:30 09:55 ABG pH 7.54 H ABG pCO2 50 H ABG pO2 61 L ABG HCO3 42 H ABG O2 Saturation 93 ABG Base Excess 18 H VBG pH 7.46 7.49 VBG pCO2 43 41 VBG pO2 98 H 39 D VBG Base Excess 6 H 7 H 06/25/24 06/26/24 06/27/24 05:04 12:08 04:54 ABG pH 7.47 H 7.48 H ABG pCO2 43 45 ABG pO2 60 L 41 L* ABG HCO3 31 H 34 H ABG O2 Saturation 92 77 L ABG Base Excess 6 H 9 H VBG pH 7.43 VBG pCO2 47 VBG pO2 35 VBG Base Excess 6 H 06/27/24 06/28/24 06/28/24 06:23 04:27 13:19 ABG pH 7.47 H 7.55 H ABG pCO2 46 41 ABG pO2 157 H D 78 L D ABG HCO3 34 H 36 H ABG O2 Saturation 100 H 98 ABG Base Excess 9 H 13 H VBG pH 7.56 VBG pCO2 41 VBG pO2 41 VBG Base Excess 13 H 06/29/24 07/01/24 15:15 06:59 ABG pH 7.39 ABG pCO2 67 H ABG pO2 80 L ABG HCO3 41 H ABG O2 Saturation 95 ABG Base Excess 13 H VBG pH 7.61 VBG pCO2 40 VBG pO2 76 H D VBG Base Excess 18 H Assessment and Plan Additional Assessment & Plan Additional Plan: # Failure to thrive Plan Consent will be obtained from the appropriate authorities for placement of a PEG tube insertion under intravenous moderate sedation via fiberoptic esophageal gastroduodenoscopy Will follow the patient Other medical problems include # Acute hypoxic respiratory failure requiring endotracheal intubation and mechanical ventilation # Altered mental status # Schizophrenia # Clinically blind Thank you very much for the opportunity to participate in the care of this patient Procedures Arterial Line Size (Gauge): 20
[2024-07-02] VITALS (62 sets, daily range): BP systolic 64–114; BP diastolic 40–75; PULSE 60–113; RESP 13–28; TEMP 36.7–38.4; O2SAT 95–100; BMI 14.6
[2024-07-02] MEDS: INSULIN LISPRO (AdmeLOG) 1 UNIT/0.01 ML UNIT SC (00:18)
--- NOTE | 2024-07-02 01:02 | PC.RT ---
ett retaped and secure in place remains 20 at the lip no complications bilateral chest movement noted tidal volumes 240s, spo2 100%.
[2024-07-02] MEDS: ALBUTEROL/IPRATROPIUM (Duoneb) RT SOL 3 ML NEBU INH ×6 (03:00→22:59)
[2024-07-02] MEDS: ACETYLCYSTEINE SOL 20% 4 ML NEBU 3 ML INH ×6 (03:00→22:59)
--- NOTE | 2024-07-02 04:06 | PC.RT ---
fio2 titrated to 45%
[2024-07-02] MEDS: ACETAMINOPHEN SOL 325 MG/10 ML UDC 650 MG NG (04:39)
[2024-07-02 05:13] LABS: Base Excess 12 (-3-3); HCO3 36 mEq/L (20-26); Inspired Oxygen, FIO2 45 %; O2 Saturation 99 % (91-98); PCO2 41 mmHg (32.0-48.0); PO2 99 mmHg (83-108); pH, Arterial 7.55 (7.35-7.45)
[2024-07-02 05:24] LABS: Allen Test Performed/OK
[2024-07-02 05:25] LABS: Puncture Site Arterial Line
[2024-07-02] MEDS: MIDODRINE 5 MG TABLET PO ×3 (05:28→21:20)
[2024-07-02 06:03] LABS: Basophils % (Auto) 0 % (0-2.5); Eosinophils % (Auto) 0 % (0-10); Hematocrit 24.6 % (36.0-46.0); Immature Granulocytes % (Auto) 1 % (0-0); Immature Granulocytes Auto 0.07 Thou/mm3 (0.00-0.00); Lymphocytes # (Auto) 0.9 Thou/mm3 (1.0-4.8); Lymphocytes % (Auto) 8 % (10-50); Mean Corpuscular HGB Conc 32.1 g/dl (31.0-37.0); Mean Corpuscular Hemoglobin 32.5 pg (25.0-35.0); Mean Corpuscular Volume 101 fL (80-100); Monocytes # (Auto) 0.2 Thou/mm3 (0.0-0.8); Monocytes % (Auto) 1 % (0-12); Neutrophils # (Auto) 10.1 Thou/mm3 (1.8-7.7); Neutrophils % (Auto) 90 % (37-80); Nucleated Red Blood Cell % 0 /100 WBC (0); Platelet Count 283 Thou/mm3 (140-440); RDW Standard Deviation 67.5 fL (36.4-46.3); Red Blood Count 2.43 Miln/mm3 (4.00-5.20); White Blood Count 11.2 Thou/mm3 (3.6-11.0)
[2024-07-02 06:04] LABS: Hemoglobin 7.9 g/dL (12.0-16.0)
[2024-07-02 06:40] LABS: Alanine Aminotransferase < 7 U/L (10-49); Albumin, Serum 2.9 gm/dL (3.5-5.0); Albumin/Globulin Ratio 1.2 (1.2-2.2); Alkaline Phosphatase 110 U/L (46-116); Anion Gap 6 (7-16); Aspartate Amino Transferase 20 U/L (0-34); BUN/Creatinine Ratio 29 Ratio (12-20); Bilirubin,Total 0.4 mg/dL (0.3-1.2); Blood Urea Nitrogen 23 mg/dL (9-23); Calcium 7.9 mg/dL (8.3-10.6); Calcium (Corrected) 8.8 mg/dL (8.5-10.1); Carbon Dioxide 34.5 mMol/L (20.0-31.0); Chloride 98 mMol/L (98-107); Creatinine (Component) 0.8 mg/dL (0.6-1.3); Estimated Creatinine Clearance 23.1 mL/min (>60); Globulin 2.5 gm/dL (2.3-3.5); Glucose 124 mg/dL (74-106); Osmolality,Calculated 280 (275-295); Potassium 4.2 mMol/L (3.4-5.1); Sodium 138 mMol/L (136-145); Total Protein 5.4 gm/dL (5.7-8.2); eGFR > 60 See Note
[2024-07-02] MEDS: PANTOPRAZOLE INJ 40 MG VIAL IVP (09:04)
[2024-07-02] MEDS: ceFAZolin/D5W 2 GM IV 2 GM/100 ML BAG IV (09:05)
[2024-07-02] MEDS: FLUDROCORTISONE ACETATE 0.1 MG TABLET 0.2 MG PO (09:44)
[2024-07-02] MEDS: SERTRALINE HCL 25 MG TABLET 100 MG NG (09:44)
[2024-07-02] MEDS: THIAMINE INJ 100 MG/ML VIAL 2 ML IV (09:44)
[2024-07-02] MEDS: MULTIVITAMIN 15 ML UDC NG (09:44)
[2024-07-02] MEDS: ENOXAPARIN SOD INJ 30 MG/0.3 ML SYRINGE 20 MG SC (09:44)
[2024-07-02] MEDS: CALCIUM CARBONATE 600 MG TABLET NG (09:45)
[2024-07-02] MEDS: Ferrous Sulfate 300 MG/5 ML UDC NG (09:45)
[2024-07-02] MEDS: NAPH,KPH MBDB 1 PACKET (1.5 GM) PO ×2 (09:45→21:19)
[2024-07-02] MEDS: FOLIC ACID INJ 1 MG/0.2 ML IVP (09:46)
[2024-07-02] MEDS: ASPIRIN 81 MG CHEW PO (09:46)
--- NOTE | 2024-07-02 10:40 | PD.IMPROG ---
Documentation for date of: 07/02/24 Subjective Subjective Interval history: Patient was scheduled for a PEG placement today but she spiked a temperature Blood pressure in the 80s systolic I will postpone the placement of the PEG tube till the fever is resolved and her blood pressure is somewhat better Exam Vital Signs Temp Pulse Resp BP Pulse Ox O2 Del Method O2 Flow Rate 98.8 F 73 21 H 84/62 L 100 High Flow Nasal Cannula 40 07/02/24 05:40 07/02/24 10:15 07/02/24 10:15 07/02/24 10:12 07/02/24 10:15 06/30/24 19:00 07/01/24 00:54 FiO2 40 07/02/24 10:15 Routine Respiratory Exam Comments: Mechanically ventilated Routine Abdominal Exam Comments: Soft nontender Objective Labs 07/02/24 05:20 07/02/24 05:20 Labs: Laboratory Results - last 24 hr 07/02/24 07/02/24 05:03 05:20 WBC 11.2 H D RBC 2.43 L Hgb 7.9 L D Hct 24.6 L MCV 101 H MCH 32.5 MCHC 32.1 RDW Std Deviation 67.5 H Plt Count 283 D Neut % (Auto) 90 H Lymph % (Auto) 8 L [place] % (Auto) 1 Eos % (Auto) 0 Baso % (Auto) 0 Neut # (Auto) 10.1 H Lymph # (Auto) 0.9 L [place] # (Auto) 0.2 Eos # (Auto) 0.0 Baso # (Auto) 0.0 Immature Gran # (Auto) 0.07 H Absolute Nucleated RBC 0.00 Immature Gran % 1 H Nucleated RBC % 0 Puncture Site Arterial Line ABG pH 7.55 H D ABG pCO2 41 D ABG pO2 99 ABG HCO3 36 H ABG O2 Saturation 99 H ABG Base Excess 12 H FiO2 45 Sodium 138 Potassium 4.2 D Chloride 98 Carbon Dioxide 34.5 H Anion Gap 6 L BUN 23 Creatinine 0.8 Estim Creat Clear Calc 23.1 L eGFR > 60 BUN/Creatinine Ratio 29 H Glucose 124 H D Calculated Osmolality 280 Calcium 7.9 L Corrected Calcium 8.8 Total Bilirubin 0.4 AST 20 ALT < 7 L Alkaline Phosphatase 110 D Total Protein 5.4 L Albumin 2.9 L Globulin 2.5 Albumin/Globulin Ratio 1.2 Impressions Impression: # Failure to thrive # Fever # Acute hypoxic respiratory failure requiring endotracheal intubation Plan Wait for placement of a PEG tube till the fever is resolved ABG Interpretation ABG results: 06/15/24 06/15/24 06/15/24 11:06 14:05 17:00 ABG pH 7.23 L 7.33 L D 7.34 L ABG pCO2 69 H 56 H D 57 H ABG pO2 153 H 67 L D 65 L ABG HCO3 29 H 29 H 30 H ABG O2 Saturation 99 H 92 91 ABG Base Excess 0 3 4 H VBG pH VBG pCO2 VBG pO2 VBG Base Excess 06/16/24 06/17/24 06/18/24 04:04 04:36 04:04 ABG pH 7.35 7.42 7.53 H D ABG pCO2 57 H 54 H 57 H ABG pO2 58 L* 77 L 73 L ABG HCO3 31 H 35 H 47 H ABG O2 Saturation 88 L 96 96 ABG Base Excess 5 H 9 H 22 H VBG pH VBG pCO2 VBG pO2 VBG Base Excess 06/19/24 06/22/24 06/23/24 04:12 17:30 09:55 ABG pH 7.54 H ABG pCO2 50 H ABG pO2 61 L ABG HCO3 42 H ABG O2 Saturation 93 ABG Base Excess 18 H VBG pH 7.46 7.49 VBG pCO2 43 41 VBG pO2 98 H 39 D VBG Base Excess 6 H 7 H 06/25/24 06/26/24 06/27/24 05:04 12:08 04:54 ABG pH 7.47 H 7.48 H ABG pCO2 43 45 ABG pO2 60 L 41 L* ABG HCO3 31 H 34 H ABG O2 Saturation 92 77 L ABG Base Excess 6 H 9 H VBG pH 7.43 VBG pCO2 47 VBG pO2 35 VBG Base Excess 6 H 06/27/24 06/28/24 06/28/24 06:23 04:27 13:19 ABG pH 7.47 H 7.55 H ABG pCO2 46 41 ABG pO2 157 H D 78 L D ABG HCO3 34 H 36 H ABG O2 Saturation 100 H 98 ABG Base Excess 9 H 13 H VBG pH 7.56 VBG pCO2 41 VBG pO2 41 VBG Base Excess 13 H 1207/01/24 07/02/24 15:15 06:59 05:03 ABG pH 7.39 7.55 H D ABG pCO2 67 H 41 D ABG pO2 80 L 99 ABG HCO3 41 H 36 H ABG O2 Saturation 95 99 H ABG Base Excess 13 H 12 H VBG pH 7.61 VBG pCO2 40 VBG pO2 76 H D VBG Base Excess 18 H Assessment & Plan A&P Narrative # Failure to thrive Plan Consent will be obtained from the appropriate authorities for placement of a PEG tube insertion under intravenous moderate sedation via fiberoptic esophageal gastroduodenoscopy Will follow the patient Other medical problems include # Acute hypoxic respiratory failure requiring endotracheal intubation and mechanical ventilation # Altered mental status # Schizophrenia # Clinically blind Thank you very much for the opportunity to participate in the care of this patient Time Spent With Patient Time: Total time spent is greater than 50% in coordination of care (as documented) at patient's floor/unit and/or counseling patient: Procedures Arterial Line Size (Gauge): 20
[2024-07-02] MEDS: PIPER/TAZO INJ 4.5 GM in SODIUM CHLORIDE 0.9% (P) 100 ML IV ×2 (10:50→21:20)
[2024-07-02] MEDS: SIMETHICONE 40 MG/0.6 ML ORAL SYRINGE GT ×2 (10:51→21:19)
[2024-07-02 10:57] LABS: Collection Type, Urine Clean Catch
[2024-07-02 11:02] LABS: Bilirubin,Urine Negative (Negative); Blood,Urine 2+ (Negative); Clarity,Urine Clear (Clear/Hazy); Color,Urine Lt-Yellow (Lt Yel-Yel); Culture Indicated,Urine Not Indicated; Glucose, Urine Negative (Negative); Ketones,Urine Negative (Negative); Leukocyte Esterase,Urine Negative (Negative); Nitrite,Urine Negative (Negative); PH,Urine 6.5 (5.0-7.0); Protein,Urine 1+ (Neg - Trace); RBC,Urine 17 /hpf (0-3); Specific Gravity,Urine 1.026 (1.001-1.035); Squamous Epithelial Cell,Urine < 1 /hpf (0-5); Urobilinogen,Urine Negative mg/dL (0.0-1.0); WBC,Urine 3 /hpf (0-5)
--- NOTE | 2024-07-02 11:35 | ESPR_ITS ---
Documentation for date of: 07/02/24 Subjective Subjective Interval history: 54 Y/O F with PMHx significant for Downs Syndrome, Schizophrenia,blindness, IBS, presents with chief complaint of AMS, last known normal 9 pm last night. Patient in unable to provide history, history taken from caregiver at bedside. Patient has had cough for about five days, noted sore throat. Patient has had diarrhea for 3 days, which is not uncommon for patient due to IBS. Patient was last seen at 9 pm last night. This morning patient was found unresponsive in her bed by caregiver. Patient is brought to ED, patient found to have low GCS, hypoxia with O2 sat 60% on nonrebreather, blood pressure 84 over palp. Patient was started on pressors, intubated. Patient had CODE BLUE, with 1 dose of epi before ROSC. Patient ventilated, started on sedation with propofol. Patient given 7 to 50 mL normal saline bolus and Rocephin in the ED. Blood urine and sputum cultures taken. 06/24/2024: The patient was examined and evaluated at the bedside this morning. The patient seemed more alert today. Patient was on pressor support with Levophed 0.08, vasopressin 0.03 and dopamine 10, breathing spontaneously on mechanical ventilation with pressure support. White count trended down to 17.4, hemoglobin 7.8, sodium stable at 124, potassium 3.4, calcium 8.3, magnesium 1.7 and we repleted magnesium 2 g IV, started on calcium carbonate 600 Mg daily, blood sugar 293, started the patient on SSI sensitive scale. 40 mEq of KCl was repleted. The phosphorus was 2.5, and we increased the dose of Neutra-Phos to 2 packs twice daily. The patient was successfully extubated to oxy mask. Discussion regarding the decision maker was done by me with patient's sister Annamarie Wilson in the presence of SRIKANTH Julian. Patient's Sister Annamarie Wilson verbally stated that Ayala Putnam, who has been the assistant to the director of the patient would be the decision maker for the patient for medical management and CODE STATUS changes. 06/25/2024: The patient was examined and evaluated at the bedside this morning. Overnight, the patient was desaturating in 80s, and was started on NC, transitioned to oxy mask, transition to BiPAP and finally was reintubated. Chest x-ray was significant for left lower lung pneumonia, likely secondary to aspiration pneumonia as patient was recently extubated, and given her underlying severe malnutrition was started on tube feed. Patient is on fentanyl drip to maintain RASS of 0, and on pressor support with Levophed, vasopressin and dopamine. She continues to be in sinus bradycardia. White count elevated to 13.5 in the setting of aspiration pneumonia, sodium continues to be 125, and she was given 500 cc of IV normal saline bolus, potassium 3.4 and was given 40 mEq of KCl. 06/26/2024: The patient was examined and evaluated at the bedside this morning. Overnight, patient did not had any acute overnight events. White count mildly trended down to 31.2, cultures pending, we discontinued linezolid and we will continue with meropenem at this point. Patient tapered down on dopamine to 7.5, and other pressor support discontinued. We considered for MAP to be stable if greater than 50, as demonstrated by normal lactic acid level at MAP greater than 50. The plan is to extubate the patient tomorrow morning. 06/27/2024: The patient was examined and evaluated at the bedside this morning again. Overnight no acute events. White count trended down to 21.5, ABG revealed pH 7.47, pCO2 46, and bicarb 34. Potassium was 2.8, and was repleted. Blood sugar this morning was 278 with mild transaminitis. We stopped dopamine drip, and the MAP goal is greater than 50. We will try for SBT tomorrow morning. Goals of care discussion was done, and Ayala Putnam who is the decision-maker recommended to proceed with tracheostomy tube if required. 06/28/2024: Patient seen and examined at bedside. Overnight patient became agitated with worsening sinus tachycardia, received 0.5 mg Ativan x 1, after which patient became hypotensive requiring Levophed to be resumed. Levophed titrate down to 0.03, held there to maintain MAP while patient is extubated. On exam patient is more active, opening eyes and moving all extremities. Patient tolerated pressure support well, with successfully extubated without complications. Patient strict n.p.o. VBG showed pH 7.56, pCO2 41, pO2 41. Lactate 2.0. Phosphorus 2.1, received 15 mmol potassium phosphate. Central line removed, Levophed transferred to peripheral IV. 06/29/2024: Patient seen and examined at bedside. Patient was reportedly very active overnight. In the morning, patient became acutely hypoxic, required BVM to maintain oxygen saturations. Chest x-ray showed consolidation of left lung base indicating atelectasis, possibly due to aspiration versus mucous plugging. Patient was repositioned on the right side and placed on high flow nasal cannula with immediate improvement in oxygenation. Will continue to titrate FiO2 as tolerated by patient. Levophed was discontinued. Repeat blood cultures drawn today for MSSA bacteremia. 06/30/2024: Patient seen and examined at bedside. In the morning patient had episode of desaturation down to low 80s. Patient was repositioned and sat up, high flow nasal cannula increased to 100% FiO2 at 40 L/min. Oxygen saturation improved. Goals of care conversation held with assistant to the director, explained that patient required intubation patient required tracheostomy and PEG tube placement for long-term rehabilitation. Account Manager Education fully understands and wishes to proceed with full and aggressive treatment. Plan to have patient sit up in chair and attempt to maintain O2 saturations, if needed will reintubate patient and consult general surgery for tracheostomy and PEG tube placement. Started patient on D10 NS for nutritional support. 07/01/2024: Patient seen and examined at bedside. In the bridge crane operator patient had severe desaturation, was manually bagged for several hours but continued to have poor saturations and developed cyanosis. Patient was reintubated due to acute hypoxic respiratory failure. As per previous conversations with assistant to the director, general surgery consult placed for tracheostomy and GI consult placed for PEG tube placement. Tube feeds initiated. Patient not sedated, compliant with vent. 07/02/2024: Patient seen and examined at bedside. Patient developed fever of 100.6 in bridge crane operator. PEG tube placement was postponed, and tube feeds resumed. Antibiotics broadened to zosyn. Sputum, blood, and urine cultures collected. CXR ordered. Patient off sedation, remains compliant with vent. Continuing breathing treatments and CPT. Exam Vital Signs Temp Pulse Resp BP Pulse Ox O2 Del Method O2 Flow Rate 98.8 F 73 21 H 84/62 L 100 High Flow Nasal Cannula 40 07/02/24 05:40 07/02/24 10:15 07/02/24 10:15 07/02/24 10:12 07/02/24 10:15 06/30/24 19:00 07/01/24 00:54 FiO2 40 07/02/24 10:15 Narrative Exam PE: Gen: Extremely cachexic. Intubated. HEENT: Dry mucous membranes. Left eye heavily scarred, right eye glassy. Scarring around nares. CVS: normal S1 and S2. No M/R/G. Resp: No rhonchi, rales, crackles or wheezing. Diminished lung sounds, coarse. Abd: soft, non-tender, non-distended. MSK: No edema. Multiple old scars/wounds on all extremities, patient has history of self-inflicted injuries, picking at skin. Significant bruises at left/right inguinal folds. Neuro: Opens eyes to painful stimuli. Withdraws from pain. Objective Labs 07/03/24 04:59 07/03/24 04:59 Labs: Laboratory Results - last 24 hr 07/02/24 07/02/24 05:03 05:20 WBC 11.2 H D RBC 2.43 L Hgb 7.9 L D Hct 24.6 L MCV 101 H MCH 32.5 MCHC 32.1 RDW Std Deviation 67.5 H Plt Count 283 D Neut % (Auto) 90 H Lymph % (Auto) 8 L Maverick % (Auto) 1 Eos % (Auto) 0 Baso % (Auto) 0 Neut # (Auto) 10.1 H Lymph # (Auto) 0.9 L Maverick # (Auto) 0.2 Eos # (Auto) 0.0 Baso # (Auto) 0.0 Immature Gran # (Auto) 0.07 H Absolute Nucleated RBC 0.00 Immature Gran % 1 H Nucleated RBC % 0 Puncture Site Arterial Line ABG pH 7.55 H D ABG pCO2 41 D ABG pO2 99 ABG HCO3 36 H ABG O2 Saturation 99 H ABG Base Excess 12 H FiO2 45 Sodium 138 Potassium 4.2 D Chloride 98 Carbon Dioxide 34.5 H Anion Gap 6 L BUN 23 Creatinine 0.8 Estim Creat Clear Calc 23.1 L eGFR > 60 BUN/Creatinine Ratio 29 H Glucose 124 H D Calculated Osmolality 280 Calcium 7.9 L Corrected Calcium 8.8 Total Bilirubin 0.4 AST 20 ALT < 7 L Alkaline Phosphatase 110 D Total Protein 5.4 L Albumin 2.9 L Globulin 2.5 Albumin/Globulin Ratio 1.2 ABG Interpretation ABG results: 12/15/24 12/15/24 12/15/24 11:06 14:05 17:00 ABG pH 7.23 L 7.33 L D 7.34 L ABG pCO2 69 H 56 H D 57 H ABG pO2 153 H 67 L D 65 L ABG HCO3 29 H 29 H 30 H ABG O2 Saturation 99 H 92 91 ABG Base Excess 0 3 4 H VBG pH VBG pCO2 VBG pO2 VBG Base Excess 06/16/24 06/17/24 06/18/24 04:04 04:36 04:04 ABG pH 7.35 7.42 7.53 H D ABG pCO2 57 H 54 H 57 H ABG pO2 58 L* 77 L 73 L ABG HCO3 31 H 35 H 47 H ABG O2 Saturation 88 L 96 96 ABG Base Excess 5 H 9 H 22 H VBG pH VBG pCO2 VBG pO2 VBG Base Excess 06/19/24 06/22/24 06/23/24 04:12 17:30 09:55 ABG pH 7.54 H ABG pCO2 50 H ABG pO2 61 L ABG HCO3 42 H ABG O2 Saturation 93 ABG Base Excess 18 H VBG pH 7.46 7.49 VBG pCO2 43 41 VBG pO2 98 H 39 D VBG Base Excess 6 H 7 H 06/25/24 06/26/24 06/27/24 05:04 12:08 04:54 ABG pH 7.47 H 7.48 H ABG pCO2 43 45 ABG pO2 60 L 41 L* ABG HCO3 31 H 34 H ABG O2 Saturation 92 77 L ABG Base Excess 6 H 9 H VBG pH 7.43 VBG pCO2 47 VBG pO2 35 VBG Base Excess 6 H 06/27/24 06/28/24 06/28/24 06:23 04:27 13:19 ABG pH 7.47 H 7.55 H ABG pCO2 46 41 ABG pO2 157 H D 78 L D ABG HCO3 34 H 36 H ABG O2 Saturation 100 H 98 ABG Base Excess 9 H 13 H VBG pH 7.56 VBG pCO2 41 VBG pO2 41 VBG Base Excess 13 H 06/29/24 07/01/24 07/02/24 15:15 06:59 05:03 ABG pH 7.39 7.55 H D ABG pCO2 67 H 41 D ABG pO2 80 L 99 ABG HCO3 41 H 36 H ABG O2 Saturation 95 99 H ABG Base Excess 13 H 12 H VBG pH 7.61 VBG pCO2 40 VBG pO2 76 H D VBG Base Excess 18 H Quality Measures Quality Measures VTE prophylaxis Assessment & Plan Assessment Current Active Medications: Generic Name Dose Route Start Last Admin Trade Name Freq PRN Reason Stop Dose Admin Acetaminophen 650 mg 06/15/24 13:50 Acetaminophen Supp 650 Mg Supp TN 07/15/24 13:49 Q4HR PRN PAIN SCALE 1-3 (mild Acetaminophen 650 mg 06/19/24 07:27 07/02/24 04:39 Acetaminophen Noreen 325 Mg/10 Ml Udc NG 07/19/24 07:26 650 mg Q4HR PRN Administration Pain Or Fever > 100.4 Protocol Acetylcysteine 3 ml 07/01/24 07:00 07/02/24 10:14 Acetylcysteine Noreen 20% 4 Ml Nebu INH 07/31/24 06:59 3 ml Q4HRRT LIZ Administration Al Hydrox/Mg Hydrox/Simethicone 30 ml 06/15/24 13:50 Mg Hyd/Al Hyd/[place] (Maalox Reg) Susp 30 Ml Udc NG 07/15/24 13:49 Q4HR PRN Heartburn or Upset Stomach Albuterol/Ipratropium 3 ml 07/01/24 07:00 07/02/24 10:14 Albuterol/Ipratropium (Duoneb) Rt Noreen 3 Ml Nebu INH 07/31/24 06:59 3 ml Q4HRRT LIZ Administration Aspirin 81 mg 06/23/24 09:00 07/02/24 09:46 Aspirin 81 Mg Chew PO 07/23/24 08:59 81 mg QDAY LIZ Administration Atorvastatin Calcium 40 mg 06/21/24 21:00 07/01/24 21:35 Atorvastatin Calcium 20 Mg Tablet PO 07/21/24 20:59 40 mg HS LIZ Administration Calcium Carbonate 600 mg 06/23/24 09:00 07/02/24 09:45 Calcium Carbonate 600 Mg Tablet NG 07/23/24 08:59 600 mg QDAY LIZ Administration Dextrose 25 ml 06/24/24 13:46 Dextrose 50%-Water Inj 50 Ml Syringe IV 07/24/24 13:45 Q15MIN PRN BG 50-70 responsive npo pt Dextrose 50 ml 06/24/24 13:46 Dextrose 50%-Water Inj 50 Ml Syringe IV 07/24/24 13:45 Q15MIN PRN BG <50 OR BG <70 & pt unresponsive Enoxaparin Sodium 20 mg 06/30/24 09:00 07/02/24 09:44 Enoxaparin Sod Inj 30 Mg/0.3 Ml Syringe SC 07/14/24 08:59 20 mg QDAY LIZ Administration Ferrous Sulfate 300 mg 06/25/24 09:00 07/02/24 09:45 Ferrous Sulfate 300 Mg/5 Ml Udc NG 07/25/24 08:59 300 mg QDAY LIZ Administration Fludrocortisone Acetate 0.2 mg 06/24/24 09:00 07/02/24 09:44 Fludrocortisone Acetate 0.1 Mg Tablet PO 07/24/24 08:59 0.2 mg QDAY LIZ Administration Folic Acid 1 mg 06/29/24 16:00 07/02/24 09:46 Folic Acid Inj 1 Mg/0.2 Ml IVP 07/29/24 15:59 1 mg QDAY LIZ Administration Glucagon 1 mg 06/24/24 13:46 Glucagon Inj 1 Mg Vial IM Q15MIN PRN BG <70, and no IV access Norepinephrine/Dextrose 8 mg in 250 mls @ 1.978 mls/hr 07/01/24 06:04 07/01/24 07:00 Levophed In D5w 8mg/250ml IV 07/31/24 06:03 0 mcg/kg/min .Q24H PRN 0 mls/hr PER PROTOCOL Titration Protocol 0.05 MCG/KG/MIN Fentanyl Citrate 2,500 mcg in 250 mls @ 2.5 mls/hr 07/01/24 06:05 Sublimaze Inj 2,500 Mcg/250 Ml Bag IV 07/06/24 06:04 .Q24H PRN PER PROTOCOL Protocol 25 MCG/HR Cefazolin Sodium 2 gm in 100 mls @ 100 mls/hr 07/01/24 21:00 07/02/24 09:05 Ancef 2gm Ivpb IV 07/08/24 20:59 100 mls/hr Q12HR LIZ Administration Piperacillin Sod/Tazobactam 100 mls @ 200 mls/hr 07/02/24 09:35 07/02/24 10:50 Sod 4.5 gm/ Sodium Chloride IV 07/12/24 09:34 200 mls/hr Q8HR LIZ Administration Insulin Human Lispro 0 unit 06/24/24 18:00 07/02/24 05:26 Insulin Lispro (Admelog) 1 Unit/0.01 Ml Unit SC 07/24/24 17:59 Not Given Q6HR LIZ Protocol Magnesium Hydroxide 30 ml 06/15/24 13:50 Milk Of Magnesia Susp 30 Ml Udc NG 07/15/24 13:49 QDAY PRN CONSTIPATION Midazolam HCl 2 mg 07/01/24 06:05 Midazolam Inj 1 Mg/Ml Vial 2 Ml IV 07/06/24 06:04 Q1HR PRN AGITATION OR ANXIETY Midodrine 5 mg 06/23/24 14:00 07/02/24 05:28 Midodrine 5 Mg Tablet PO 07/23/24 13:59 5 mg TID LIZ Administration Multivitamins/Minerals 15 ml 06/19/24 15:15 07/02/24 09:44 Multivitamin 15 Ml Udc NG 07/19/24 15:14 15 ml QDAY LIZ Administration Pantoprazole Sodium 40 mg 06/16/24 09:00 07/02/24 09:04 Pantoprazole Inj 40 Mg Vial IVP 07/16/24 08:59 40 mg QDAY LIZ Administration Pharmacy Consult 1 each 06/15/24 18:27 Pharmacy To Consult Pneumovacc XX 07/15/24 18:26 PRN PRN CONSULT Potassium Phos/Sodium Phos 1 packet 06/28/24 11:00 07/02/24 09:45 [facility]db 1 Packet (1.5 Gm) PO 07/28/24 10:59 1 packet BID LIZ Administration Sertraline HCl 100 mg 06/23/24 15:30 07/02/24 09:44 Sertraline Hcl 25 Mg Tablet NG 07/23/24 15:29 100 mg QDAY LIZ Administration Simethicone 40 mg 07/02/24 09:30 07/02/24 10:51 Simethicone 40 Mg/0.6 Ml Oral Syringe GT 08/01/24 09:29 40 mg BID LIZ Administration Sodium Chloride 3 ml 06/25/24 08:37 06/25/24 08:55 Sodium Chloride Rt Noreen 0.9% 3 Ml Nebu INH 07/25/24 08:36 3 ml PRN PRN Administration SOLN Thiamine HCl 100 mg 06/19/24 15:15 07/02/24 09:44 Thiamine Inj 100 Mg/Ml Vial 2 Ml IV 07/19/24 15:14 100 mg QDAY LIZ Administration Plan 54 Y/O F with PMHx significant for Downs Syndrome, Schizophrenia,blindness, IBS, presents with chief complaint of AMS, last known normal 9 pm last night, admitted to ICU for septic shock requiring pressors and acute hypoxic respiratory failure requiring intubation. Neuro: #Acute encephalopathy, improving Multifactorial: hypoxia, S/p shock Low density areas in both basal ganglia seen on head CT On Presidex tapering down, withdraws to pain -EEG ordered, was significant for anoxic brain injury -Treat underlying conditions -Neuro consult placed, follow up -Atorvastatin and aspirin #Schizophrenia #Depression Patient home medication risperidone 4mg BID, Sertraline 100mg daily, Ziprasidone 60mg BID and zolpidem 10mg PO HS -Resumed sertraline 100mg daily -Other home meds only given by care provider as needed, will continue to hold Cardio: #No active issues -MAP goal 50 Pulm: #AHRF 08/03 MSSA pneumonia Patient has history of Down syndrome, risk for aspiration pneumonia. Bacterial and viral pneumonia both possible. Influenza panel negative. MRSA screen negative. Sedated and mechanically ventilated Extubated on 06/24/24, but reintubated on 06/25 Patient extubated for second time, still severely hypoxic, requiring high flow nasal cannula. Patient desatted despite several hours of manual bagging, required reintubation. -Sputum culture significant for MSSA pneumonia -On cefazolin 2 g 3 times daily 06/27/2024-07/02/2024 -Zosyn 07/02/24-07/12/24 -General Surgery consulted for trach placement -Titrate FiO2 as tolerated #Atelectasis Patient had episode of acute hypoxic respiratory failure the day following extubation. Patient required BVM to maintain oxygenation, was placed on high flow nasal cannula. Chest x-ray showed consolidation of left lower lung lobe, indicating atelectasis due to aspiration versus mucous plugging. Patient was repositioned on the right side with immediate improvement in O2 saturation and work of breathing. -CPT -Avoid positioning on left side -Breathing treatments -Intubated GI: #Severe protein malnutrition Patient BMI 14.9. Patient unable to provide history, per caregiver patient has good oral intake most times, has been malnourished for years due to chronic diarrhea, has not had significant weight loss recently. Patient has very little muscle mass, temporal wasting, sunken eyes. -Dietary consult, appreciate recommendations -Thiamine and multivitamin supplements -Tube feeds, advanced -daily labs -aggressive monitoring/repleting of potassium, phosphorous, magnesium -Tube feeds -GI consult placed for PEG tube placement #IBS Patient history of IBS. Patient had diarrhea for 3 days prior to admission, not unusual for patient. Patient has been having regular bowel movements during hospital stay. -Monitor bowel movements -Treat metabolic abnormalities as needed Renal: #Metabolic alkalosis Unclear etiology: Possibly due to refeeding syndrome, hydrocortisone use Patient has had metabolic alkalosis, slowly getting progressively worse. Initially to be contraction alkalosis, however patient has had progression despite being off diuresis. Patient has inadequate respiratory compensation, pCO2 lower than expected for patient's serum bicarb. Serum bicarb 37.2, VBG showed pH 7.6, pCO2 40. Urine electrolyte studies showed random sodium 81, potassium 60, creatinine chloride 98.9. Metabolic alkalosis significantly improved after IVF normal saline. -Monitor daily labs -Continue tube feeds Endo: #Adrenal insufficiency Suspect due to chronic malnutrition. Patient arrived with hypotension, hypernatremia. Patient has been hypokalemic despite repletion and bradycardic. Clinical improvement with hydrocortisone followed by worsening when dosage reduced. -Fludracortisone increased to 0.2mg OG daily -Hydrocortisone 100 mg 3 times daily -monitor sodium and potassium #Hyperglycemia Patient has mild hyperglycemia, trending up. No history of diabetes. Likely due to steroid treatment. -Started on SSI lispro q6h -Monitor Heme: #Hematomas, resolved Hematomas in bilateral inguinal folds as complications of attempted femoral arterial line placement. Hematomas have resolved, leaving bruises and inguinal folds. -Monitor #Macrocytic anemia Patient hemoglobin 9.2, MCV 114. No previous labs to compare to. No obvious signs of acute bleeding. On 06/23: Hb 6.9, transfused 1 unit PRBC Folate and B12 not depleted. -Monitor #Leukocytosis Likely due to aspiration pneumonia and glucocorticosteroid. -Monitor ID: #[id number] bacteremia Blood cultures positive for MSSA bacteremia. Central line removed. Source is MSSA pneumonia. Blood cultures negative 06/29. New onset fever on 07/02/24, repeat blood cultures taken. Antibiotics widened. -Zosyn until 07/12/24 -follow up blood, urine, sputum cultures. #Aspiration Pneumonia #MSSA Pneumonia Patient in acute hypoxic respiratory failure, chest x-ray with left-sided consolidations. -On Unasyn (completed) -On Meropenem 06/25-06/27 -On cefazolin 2 g 3 times daily for GPC bacteremia and MSSA pneumonia. (started 06/27-07/02/24) -Zosyn until 07/12/24 Skin/MSK: #No active issues Lines: RIJ/PIV DVT prophylaxis: Lovenox G.I prophylaxis: Pantoprazole Code: Full code Plan of care discussed with attending Dr. Ashley. Live Cerrato MD PGY-1 Attending Provider Attestation/Addendum Patient seen and examined with above resident, Live Cerrato MD. I agree with the findings, assessment, and plan of care as documented except for any differences below. Patient remained stable postintubation on minimal ventilator settings. Remains hemodynamically stable with ability to be off vasopressor support. Tolerating lower MAP goals with initial rising lactate which has now cleared. Remains on fludrocortisone and no other glucocorticoids at this point. Patient with fever warranting escalation of antibiotics to Zosyn, no history of MRSA but cannot exclude presence of Pseudomonas with repeat cultures done. Suspect new infection potentially as cause of fever could ultimately be related to atelectasis. She does not have any other access points that could have become infected at this time apart from peripheral IV. Patient placed on tube feeds through OG. Plan initially for PEG placement today but was canceled due to fever overnight. Plan for tracheostomy tomorrow by general surgery. Patient's caregiver was at bedside and was updated on plan of care and remains agreeable. Patient notably with continued malnutrition which is limiting her ability to recover from acute critical illness. Will discuss with nutrition additional options for adjustments to optimize absorption and break continued catabolic state. Total critical care time: I personally spent 35 minutes for review of physiologic parameters, directing plan of care throughout the day, coordination of care with other subspecialties, and counseling patient's caregiver at bedside. This is exclusive of time spent teaching housestaff or performing any separate billable procedures. Patient continues to require critical care services for acute hypoxic respiratory failure and failure to thrive/severe protein calorie malnutrition limiting recovery from aspiration pneumonia. She remains ventilator dependent at this time point with 2 failed extubation. Patient is at increased risk of morbidity and mortality warranting continued close monitoring only available in the intensive care unit.
--- NOTE | 2024-07-02 11:45 | XR_ITS ---
Examination: AP chest single view TECHNIQUE: AP portable semiupright chest single view Exam date and time: July 02, 2024 1152 hours Comparison July 01, 2024 INDICATIONS: Hypoxic respiratory failure, pneumonia ARDS on earlier chest imaging this week FINDINGS: Bilateral perihilar lung opacity again depicted [place] upper right hemithorax Orogastric tube in stomach satisfactory position Minor prominence left ventricle Endotracheal tube tip 5.3 cm above tiki Prominent osteopenia No pneumothorax IMPRESSION: COPD Again noted bilateral pneumonia ARDS pattern Endotracheal tube tip 5.3 cm above tiki Orogastric tube in the stomach satisfactory position
[2024-07-02 14:04] LABS: Lactate (Lactic Acid) 2.7 mMol/L (0.4-2.0)
[2024-07-02 14:42] LABS: Anion Gap 10 (7-16); BUN/Creatinine Ratio 26 Ratio (12-20); Blood Urea Nitrogen 21 mg/dL (9-23); Calcium 7.8 mg/dL (8.3-10.6); Carbon Dioxide 30.8 mMol/L (20.0-31.0); Chloride 96 mMol/L (98-107); Creatinine (Component) 0.8 mg/dL (0.6-1.3); Estimated Creatinine Clearance 28.2 mL/min (>60); Glucose 150 mg/dL (74-106); Osmolality,Calculated 279 (275-295); Potassium 3.8 mMol/L (3.4-5.1); Sodium 137 mMol/L (136-145); eGFR > 60 See Note
[2024-07-02 17:01] LABS: Reflex Lactate? Y
[2024-07-02 18:06] LABS: Lactic Acid, 3 HR 1.9 mMol/L (0.4-2.0)
[2024-07-02] MEDS: DEXTROSE 5%-NS 1,000 ML 40 ML IV (18:19)
--- NOTE | 2024-07-02 18:27 | PC.NURSE ---
0900 Vale from surgery had called to get report for patient. I reported to her that the patient did have a temeperature of 101 this morning. Pt was found flushed and very warm to touch. RN called back to inform per Dr. Bronson the peg tube placement has been placed on hold.
--- NOTE | 2024-07-02 20:27 | PD.SURCONS ---
HPI Consult details Consult date: 07/01/24 Reason for consultation narrative: Tracheostomy History of present illness: 54-year-old female with history of schizophrenia, blindness and Down syndrome was admitted with altered mental status and respiratory failure requiring intubation. During hospitalization patient has been on ventilator support. She was extubated few years ago, developed hypoxia requiring reintubation. In anticipation for prolonged need for ventilator support, patient will benefit from tracheostomy and I was consulted for placement of tracheostomy. Review of Systems Review of Systems ROS Unobtainable: unobtainable due to mental status and unobtainable due to endotracheal tube Meds Home Medications and Allergies Home Medications ?Medication ?Instructions ?Recorded ?Confirmed ?Type gemfibrozil 600 mg tablet 600 mg PO BID 06/16/24 06/16/24 History risperidone 4 mg tablet 4 mg PO BID 06/16/24 06/16/24 History sertraline 100 mg tablet 100 mg PO QDAY 06/16/24 06/16/24 History ziprasidone HCl 60 mg capsule 60 mg PO BID 06/16/24 06/16/24 History zolpidem 10 mg tablet 10 mg PO HS 06/16/24 06/16/24 History Allergies Allergy/AdvReac Type Severity Reaction Status Date / Time No Known Allergies Allergy Unverified 06/15/24 10:42 Exam Vital Signs Temp Pulse Resp BP Pulse Ox O2 Del Method O2 Flow Rate 98.1 F 84 20 79/68 L 100 Mechanical Ventilation 40 07/02/24 16:00 07/02/24 19:30 07/02/24 18:14 07/02/24 19:30 07/02/24 19:30 07/02/24 16:00 07/01/24 00:54 FiO2 35 07/02/24 18:14 Constitutional Constitutional: no acute distress and cachectic Comments: Intubated and sedated Routine Neck Exam Neck: Present trachea midline Results Results: Laboratory Laboratory results: results reviewed Assessment & Plan Problem List (1) Acute respiratory failure with hypoxia: Status: Acute Plan Plan for tracheostomy on . Risks include but not limited to infection, bleeding, injury to surround neurovascular structures, possible tracheoinnominate fistula discussed with patient and sister via telephone conversation. Benefits and alternatives explained to her, all her questions answered, she agreed and gave verbal consent to proceed with tracheostomy
[2024-07-02] MEDS: ATORVASTATIN CALCIUM 20 MG TABLET 40 MG PO (21:19)
[2024-07-03] VITALS (93 sets, daily range): BP systolic 68–129; BP diastolic 44–87; PULSE 55–112; RESP 4–27; TEMP 36.4–37.3; O2SAT 89–100
[2024-07-03] MEDS: ALBUTEROL/IPRATROPIUM (Duoneb) RT SOL 3 ML NEBU INH ×6 (02:39→22:27)
[2024-07-03] MEDS: ACETYLCYSTEINE SOL 20% 4 ML NEBU 3 ML INH ×6 (02:39→22:27)
[2024-07-03 05:14] LABS: Lactate (Lactic Acid) 1.2 mMol/L (0.4-2.0)
[2024-07-03 05:32] LABS: Basophils % (Auto) 0 % (0-2.5); Eosinophils % (Auto) 0 % (0-10); Hematocrit 23.4 % (36.0-46.0); Immature Granulocytes % (Auto) 1 % (0-0); Immature Granulocytes Auto 0.05 Thou/mm3 (0.00-0.00); Lymphocytes # (Auto) 0.8 Thou/mm3 (1.0-4.8); Lymphocytes % (Auto) 7 % (10-50); Mean Corpuscular HGB Conc 32.9 g/dl (31.0-37.0); Mean Corpuscular Hemoglobin 33.6 pg (25.0-35.0); Mean Corpuscular Volume 102 fL (80-100); Monocytes # (Auto) 0.2 Thou/mm3 (0.0-0.8); Monocytes % (Auto) 2 % (0-12); Neutrophils # (Auto) 9.9 Thou/mm3 (1.8-7.7); Neutrophils % (Auto) 90 % (37-80); Nucleated Red Blood Cell % 0 /100 WBC (0); Platelet Count 211 Thou/mm3 (140-440); RDW Standard Deviation 67.2 fL (36.4-46.3); Red Blood Count 2.29 Miln/mm3 (4.00-5.20)
[2024-07-03] MEDS: MIDODRINE 5 MG TABLET PO ×3 (05:32→21:39)
[2024-07-03] MEDS: PIPER/TAZO INJ 4.5 GM in SODIUM CHLORIDE 0.9% (P) 100 ML IV ×3 (05:33→21:39)
[2024-07-03 05:48] LABS: Hemoglobin 7.7 g/dL (12.0-16.0)
[2024-07-03 06:37] LABS: Alanine Aminotransferase < 7 U/L (10-49); Alkaline Phosphatase 101 U/L (46-116); Anion Gap 7 (7-16); Aspartate Amino Transferase 16 U/L (0-34); BUN/Creatinine Ratio 25 Ratio (12-20); Bilirubin,Total 0.4 mg/dL (0.3-1.2); Blood Urea Nitrogen 15 mg/dL (9-23); Calcium 7.5 mg/dL (8.3-10.6); Carbon Dioxide 32.6 mMol/L (20.0-31.0); Chloride 99 mMol/L (98-107); Creatinine (Component) 0.6 mg/dL (0.6-1.3); Estimated Creatinine Clearance 36.2 mL/min (>60); Glucose 231 mg/dL (74-106); Osmolality,Calculated 285 (275-295); Sodium 139 mMol/L (136-145); Total Protein 5.3 gm/dL (5.7-8.2); eGFR > 60 See Note
[2024-07-03 06:53] LABS: Potassium 2.7 mMol/L (3.4-5.1)
[2024-07-03 07:00] LABS: Albumin, Serum 2.6 gm/dL (3.5-5.0); Calcium (Corrected) 8.6 mg/dL (8.5-10.1); Globulin 2.7 gm/dL (2.3-3.5)
[2024-07-03 07:09] LABS: INR 1.7 (0.9-1.3); Prothrombin Time 16.7 Seconds (9.0-12.2)
--- NOTE | 2024-07-03 08:28 | PC.SS ---
Update: Plan is for the patient to obtain Trach/PEG today.
[2024-07-03] MEDS: PANTOPRAZOLE INJ 40 MG VIAL IVP (08:48)
[2024-07-03] MEDS: POTASSIUM CHLORIDE 10% 20 MEQ/15 ML UDC 40 MEQ GT (08:49)
[2024-07-03] MEDS: POTASSIUM CHL 10 mEq IVPB 10 MEQ/100 ML BAG 100 MEQ IV ×4 (08:49→12:30)
[2024-07-03] MEDS: PHYTONADIONE INJ 10 MG/ML AMP SC (08:50)
--- NOTE | 2024-07-03 11:41 | PC.NURSE ---
Patient taken to surgery for trach placement. FFP was transfusing when patient went to surgery. KCL also infusing and last 100 ml bag of KCL given to surgical nurse.
--- NOTE | 2024-07-03 12:12 | PD.SUROPNT ---
Date of Procedure 07/03/24 Pre Op Diagnosis Respiratory failure Post Op Diagnosis Respiratory failure Procedure Tracheostomy with size 6 cuffed tracheostomy Findings Minimal tracheal secretion Procedure Description Patient brought into the operating room in supine position. After administration of general endotracheal anesthesia, patient's neck was extended, prepped and draped in standard surgical manner. An approximately 2.5 cm semicircular incision was made approximately 2 fingerbreadths above the sternal notch. Dissection was carried to subcutaneous tissue and platysma was divided. Median raphae was identified and excised. The thyroid tissue overlying the trachea was divided and suture ligated on both sides. The trachea was then cleared from overlying tissue. An approximately 1 cm tracheotomy was performed at the level of second tracheal ring in the was extended distally. The anesthesiologist was instructed to pull the orotracheal tube until the tip was just beyond the tracheotomy site. Once this was done a size 6 cuffed tracheostomy was placed through the tracheotomy site and the cuff was inflated. The tracheostomy was then connected to the ventilator where patient was being ventilated without difficulty with normal end tidal CO2. The tracheostomy site was then suctioned with minimal amount of tracheal secretions noted. Hemostasis was adequate and satisfactory. Appropriate sterile dressings applied. A Velcro was placed around the patient's neck to further secure the tracheostomy. Patient tolerated the procedure well. She remained hemodynamically stable and transferred to the intensive care unit. Instruments, needles and sponge counts were reported to be correct ?2. Anesthesia GETA and local Pathology / specimen None Estimated Blood Loss 2 Condition Stable Disposition ICU Surgeon Gabi Titus MD Surgical Staff Operation Date: 07/03/24 16:00 <No data on this case meets the specified criteria>
--- NOTE | 2024-07-03 12:42 | XR_ITS ---
Examination: Abdomen AP single view Technique: AP portable supine abdomen, single view Exam date and time: July 03, 2024 at 1247 hours INDICATIONS: Post orogastric tube placement FINDINGS: Orogastric tube in the stomach Moderate colonic ileus Opacity consistent with a tooth projects in the right midabdomen IMPRESSION: Orogastric tube in stomach satisfactory position Opacity consistent with a tooth projects in the right midabdomen
--- NOTE | 2024-07-03 12:49 | PC.NURSE ---
Patient returned from [facility]. Pt has trach placed, currently pt is alseep after medication. VSS.
[2024-07-03] MEDS: DEXTROSE 5%-NS 1,000 ML 40 ML IV (13:14)
[2024-07-03 14:47] LABS: Anion Gap 7 (7-16); BUN/Creatinine Ratio 17 Ratio (12-20); Blood Urea Nitrogen 10 mg/dL (9-23); Calcium 7.6 mg/dL (8.3-10.6); Carbon Dioxide 29.4 mMol/L (20.0-31.0); Chloride 103 mMol/L (98-107); Creatinine (Component) 0.6 mg/dL (0.6-1.3); Estimated Creatinine Clearance 36.2 mL/min (>60); Glucose 206 mg/dL (74-106); Osmolality,Calculated 282 (275-295); Potassium 4.5 mMol/L (3.4-5.1); Sodium 139 mMol/L (136-145); eGFR > 60 See Note
--- NOTE | 2024-07-03 14:49 | PC.SS ---
Update: Patient obtained Trach placement today. PEG placement on hold for today.
--- NOTE | 2024-07-03 14:50 | PC.SS ---
DISTRICT COURT JUDGE met with patient's caregiver, Ayala Putnam [phone]; to discuss discharge plan. DISTRICT COURT JUDGE informed caregiver once patient is Trach/PEG will be a candidate for LTAC placement once medically stable. DISTRICT COURT JUDGE reviewed that one of the primary goals of LTAC placement is to wean the patient from Trach. DISTRICT COURT JUDGE informed caregiver lack of LTAC within local proximity. [facility]. Caregiver receptive to d/c plan. No preferred LTAC identified. Referral pending PEG placement.
[2024-07-03 15:35] LABS: HCG,Qualitative Serum Negative
[2024-07-03 15:36] LABS: Misc Send Out* See Sep Rpt
--- NOTE | 2024-07-03 16:25 | PD.RESPRO ---
Documentation for date of: 07/03/24 Subjective Subjective Interval history: 54 Y/O F with PMHx significant for Downs Syndrome, Schizophrenia,blindness, IBS, presents with chief complaint of AMS, last known normal 9 pm last night. Patient in unable to provide history, history taken from caregiver at bedside. Patient has had cough for about five days, noted sore throat. Patient has had diarrhea for 3 days, which is not uncommon for patient due to IBS. Patient was last seen at 9 pm last night. This morning patient was found unresponsive in her bed by caregiver. Patient is brought to ED, patient found to have low GCS, hypoxia with O2 sat 60% on nonrebreather, blood pressure 84 over palp. Patient was started on pressors, intubated. Patient had CODE BLUE, with 1 dose of epi before ROSC. Patient ventilated, started on sedation with propofol. Patient given 7 to 50 mL normal saline bolus and Rocephin in the ED. Blood urine and sputum cultures taken. 06/24/2024: The patient was examined and evaluated at the bedside this morning. The patient seemed more alert today. Patient was on pressor support with Levophed 0.08, vasopressin 0.03 and dopamine 10, breathing spontaneously on mechanical ventilation with pressure support. White count trended down to 17.4, hemoglobin 7.8, sodium stable at 124, potassium 3.4, calcium 8.3, magnesium 1.7 and we repleted magnesium 2 g IV, started on calcium carbonate 600 Mg daily, blood sugar 293, started the patient on SSI sensitive scale. 40 mEq of KCl was repleted. The phosphorus was 2.5, and we increased the dose of Neutra-Phos to 2 packs twice daily. The patient was successfully extubated to oxy mask. Discussion regarding the decision maker was done by me with patient's sister Annamarie Wilson in the presence of SRIKANTH Julian. Patient's Sister Annamarie Wilson verbally stated that Ayala Putnam, who has been the food beverage server of the patient would be the decision maker for the patient for medical management and CODE STATUS changes. 06/25/2024: The patient was examined and evaluated at the bedside this morning. Overnight, the patient was desaturating in 80s, and was started on NC, transitioned to oxy mask, transition to BiPAP and finally was reintubated. Chest x-ray was significant for left lower lung pneumonia, likely secondary to aspiration pneumonia as patient was recently extubated, and given her underlying severe malnutrition was started on tube feed. Patient is on fentanyl drip to maintain RASS of 0, and on pressor support with Levophed, vasopressin and dopamine. She continues to be in sinus bradycardia. White count elevated to 13.5 in the setting of aspiration pneumonia, sodium continues to be 125, and she was given 500 cc of IV normal saline bolus, potassium 3.4 and was given 40 mEq of KCl. 06/26/2024: The patient was examined and evaluated at the bedside this morning. Overnight, patient did not had any acute overnight events. White count mildly trended down to 31.2, cultures pending, we discontinued linezolid and we will continue with meropenem at this point. Patient tapered down on dopamine to 7.5, and other pressor support discontinued. We considered for MAP to be stable if greater than 50, as demonstrated by normal lactic acid level at MAP greater than 50. The plan is to extubate the patient tomorrow morning. 06/27/2024: The patient was examined and evaluated at the bedside this morning again. Overnight no acute events. White count trended down to 21.5, ABG revealed pH 7.47, pCO2 46, and bicarb 34. Potassium was 2.8, and was repleted. Blood sugar this morning was 278 with mild transaminitis. We stopped dopamine drip, and the MAP goal is greater than 50. We will try for SBT tomorrow morning. Goals of care discussion was done, and Ayala Putnam who is the decision-maker recommended to proceed with tracheostomy tube if required. 06/28/2024: Patient seen and examined at bedside. Overnight patient became agitated with worsening sinus tachycardia, received 0.5 mg Ativan x 1, after which patient became hypotensive requiring Levophed to be resumed. Levophed titrate down to 0.03, held there to maintain MAP while patient is extubated. On exam patient is more active, opening eyes and moving all extremities. Patient tolerated pressure support well, with successfully extubated without complications. Patient strict n.p.o. VBG showed pH 7.56, pCO2 41, pO2 41. Lactate 2.0. Phosphorus 2.1, received 15 mmol potassium phosphate. Central line removed, Levophed transferred to peripheral IV. 06/29/2024: Patient seen and examined at bedside. Patient was reportedly very active overnight. In the morning, patient became acutely hypoxic, required BVM to maintain oxygen saturations. Chest x-ray showed consolidation of left lung base indicating atelectasis, possibly due to aspiration versus mucous plugging. Patient was repositioned on the right side and placed on high flow nasal cannula with immediate improvement in oxygenation. Will continue to titrate FiO2 as tolerated by patient. Levophed was discontinued. Repeat blood cultures drawn today for MSSA bacteremia. 06/30/2024: Patient seen and examined at bedside. In the morning patient had episode of desaturation down to low 80s. Patient was repositioned and sat up, high flow nasal cannula increased to 100% FiO2 at 40 L/min. Oxygen saturation improved. Goals of care conversation held with food beverage server, explained that patient required intubation patient required tracheostomy and PEG tube placement for long-term rehabilitation. Personal Carer fully understands and wishes to proceed with full and aggressive treatment. Plan to have patient sit up in chair and attempt to maintain O2 saturations, if needed will reintubate patient and consult general surgery for tracheostomy and PEG tube placement. Started patient on D10 NS for nutritional support. 07/01/2024: Patient seen and examined at bedside. In the front end developer javascript html css patient had severe desaturation, was manually bagged for several hours but continued to have poor saturations and developed cyanosis. Patient was reintubated due to acute hypoxic respiratory failure. As per previous conversations with food beverage server, general surgery consult placed for tracheostomy and GI consult placed for PEG tube placement. Tube feeds initiated. Patient not sedated, compliant with vent. 07/02/2024: Patient seen and examined at bedside. Patient developed fever of 100.6 in front end developer javascript html css. PEG tube placement was postponed, and tube feeds resumed. Antibiotics broadened to zosyn. Sputum, blood, and urine cultures collected. CXR ordered. Patient off sedation, remains compliant with vent. Continuing breathing treatments and CPT. 07/03/2024: Patient seen and examined at bedside. Patient has been afebrile overnight. Patient had tracheostomy placement performed today, procedure completed without incident. NG tube placed to allow medication administration. Discussed changing patient's tube feeds to something easier to absorb with dietary, recommendations placed. Tube feeds held pending PEG tube placement later today. Send out test for stool osmolarity sent to eval for malabsorption. Exam Vital Signs Temp Pulse Resp BP Pulse Ox O2 Del Method O2 Flow Rate 99.2 F 81 20 91/65 94 L Mechanical Ventilation 21 07/03/24 16:00 07/03/24 16:15 07/03/24 16:00 07/03/24 16:15 07/03/24 16:15 07/03/24 16:00 07/03/24 10:58 FiO2 21 07/03/24 16:00 Narrative Exam PE: Gen: Extremely cachexic. Tracheostomy. HEENT: Dry mucous membranes. Left eye heavily scarred, right eye glassy. Scarring around nares. CVS: normal S1 and S2. No M/R/G. Resp: No rhonchi, rales, crackles or wheezing. Diminished lung sounds, coarse. Abd: soft, non-tender, non-distended. MSK: No edema. Multiple old scars/wounds on all extremities, patient has history of self-inflicted injuries, picking at skin. Significant bruises at left/right inguinal folds. Neuro: Opens eyes to audible stimuli. Withdraws from pain. Objective Labs 07/04/24 05:02 07/04/24 05:02 Labs: Laboratory Results - last 24 hr 07/02/24 07/03/24 07/03/24 17:54 04:59 08:53 WBC 11.0 RBC 2.29 L Hgb 7.7 L Hct 23.4 L MCV 102 H MCH 33.6 MCHC 32.9 RDW Std Deviation 67.2 H Plt Count 211 D Neut % (Auto) 90 H Lymph % (Auto) 7 L [place] % (Auto) 2 Eos % (Auto) 0 Baso % (Auto) 0 Neut # (Auto) 9.9 H Lymph # (Auto) 0.8 L [place] # (Auto) 0.2 Eos # (Auto) 0.0 Baso # (Auto) 0.0 Immature Gran # (Auto) 0.05 H Absolute Nucleated RBC 0.00 Immature Gran % 1 H Nucleated RBC % 0 PT 16.7 H INR 1.7 H Sodium 139 Potassium 2.7 L* D Chloride 99 Carbon Dioxide 32.6 H Anion Gap 7 BUN 15 Creatinine 0.6 Estim Creat Clear Calc 36.2 L eGFR > 60 BUN/Creatinine Ratio 25 H Glucose 231 H D Calculated Osmolality 285 Lactic Acid 1.9 1.2 Calcium 7.5 L Corrected Calcium 8.6 Total Bilirubin 0.4 AST 16 ALT < 7 L Alkaline Phosphatase 101 Total Protein 5.3 L Albumin 2.6 L Globulin 2.7 Albumin/Globulin Ratio 1.0 L HCG, Qual Negative Blood Type O Positive Antibody Screen NEGATIVE Blood Bank Wristband ID Yes Blood Bank Comment FFP Ready 07/03/24 14:14 WBC RBC Hgb Hct MCV MCH MCHC RDW Std Deviation Plt Count Neut % (Auto) Lymph % (Auto) [place] % (Auto) Eos % (Auto) Baso % (Auto) Neut # (Auto) Lymph # (Auto) [place] # (Auto) Eos # (Auto) Baso # (Auto) Immature Gran # (Auto) Absolute Nucleated RBC Immature Gran % Nucleated RBC % PT INR Sodium 139 Potassium 4.5 D Chloride 103 Carbon Dioxide 29.4 Anion Gap 7 BUN 10 Creatinine 0.6 Estim Creat Clear Calc 36.2 L eGFR > 60 BUN/Creatinine Ratio 17 Glucose 206 H Calculated Osmolality 282 Lactic Acid Calcium 7.6 L Corrected Calcium Total Bilirubin AST ALT Alkaline Phosphatase Total Protein Albumin Globulin Albumin/Globulin Ratio HCG, Qual Blood Type Antibody Screen Blood Bank Wristband ID Blood Bank Comment ABG Interpretation ABG results: 06/15/24 06/15/24 06/15/24 11:06 14:05 17:00 ABG pH 7.23 L 7.33 L D 7.34 L ABG pCO2 69 H 56 H D 57 H ABG pO2 153 H 67 L D 65 L ABG HCO3 29 H 29 H 30 H ABG O2 Saturation 99 H 92 91 ABG Base Excess 0 3 4 H VBG pH VBG pCO2 VBG pO2 VBG Base Excess 06/16/24 06/17/24 06/18/24 04:04 04:36 04:04 ABG pH 7.35 7.42 7.53 H D ABG pCO2 57 H 54 H 57 H ABG pO2 58 L* 77 L 73 L ABG HCO3 31 H 35 H 47 H ABG O2 Saturation 88 L 96 96 ABG Base Excess 5 H 9 H 22 H VBG pH VBG pCO2 VBG pO2 VBG Base Excess 06/19/24 06/22/24 06/23/24 04:12 17:30 09:55 ABG pH 7.54 H ABG pCO2 50 H ABG pO2 61 L ABG HCO3 42 H ABG O2 Saturation 93 ABG Base Excess 18 H VBG pH 7.46 7.49 VBG pCO2 43 41 VBG pO2 98 H 39 D VBG Base Excess 6 H 7 H 06/25/24 06/26/24 06/27/24 05:04 12:08 04:54 ABG pH 7.47 H 7.48 H ABG pCO2 43 45 ABG pO2 60 L 41 L* ABG HCO3 31 H 34 H ABG O2 Saturation 92 77 L ABG Base Excess 6 H 9 H VBG pH 7.43 VBG pCO2 47 VBG pO2 35 VBG Base Excess 6 H 06/27/24 06/28/24 06/28/24 06:23 04:27 13:19 ABG pH 7.47 H 7.55 H ABG pCO2 46 41 ABG pO2 157 H D 78 L D ABG HCO3 34 H 36 H ABG O2 Saturation 100 H 98 ABG Base Excess 9 H 13 H VBG pH 7.56 VBG pCO2 41 VBG pO2 41 VBG Base Excess 13 H 06/29/24 07/01/24 07/02/24 15:15 06:59 05:03 ABG pH 7.39 7.55 H D ABG pCO2 67 H 41 D ABG pO2 80 L 99 ABG HCO3 41 H 36 H ABG O2 Saturation 95 99 H ABG Base Excess 13 H 12 H VBG pH 7.61 VBG pCO2 40 VBG pO2 76 H D VBG Base Excess 18 H Quality Measures Quality Measures VTE prophylaxis Assessment & Plan Assessment Current Active Medications: Generic Name Dose Route Start Last Admin Trade Name Freq PRN Reason Stop Dose Admin Acetaminophen 650 mg 06/15/24 13:50 Acetaminophen Supp 650 Mg Supp IN 07/15/24 13:49 Q4HR PRN PAIN SCALE 1-3 (mild Acetaminophen 650 mg 06/19/24 07:27 07/02/24 04:39 Acetaminophen Noreen 325 Mg/10 Ml Udc NG 07/19/24 07:26 650 mg Q4HR PRN Administration Pain Or Fever > 100.4 Protocol Acetylcysteine 3 ml 07/01/24 07:00 07/03/24 14:48 Acetylcysteine Noreen 20% 4 Ml Nebu INH 07/31/24 06:59 3 ml Q4HRRT LIZ Administration Al Hydrox/Mg Hydrox/Simethicone 30 ml 06/15/24 13:50 Mg Hyd/Al Hyd/[place] (Maalox Reg) Susp 30 Ml Udc NG 07/15/24 13:49 Q4HR PRN Heartburn or Upset Stomach Albuterol/Ipratropium 3 ml 07/01/24 07:00 07/03/24 14:48 Albuterol/Ipratropium (Duoneb) Rt Noreen 3 Ml Nebu INH 07/31/24 06:59 3 ml Q4HRRT LIZ Administration Aspirin 81 mg 06/23/24 09:00 07/03/24 08:20 Aspirin 81 Mg Chew PO 07/23/24 08:59 Not Given QDAY LIZ Atorvastatin Calcium 40 mg 06/21/24 21:00 07/02/24 21:19 Atorvastatin Calcium 20 Mg Tablet PO 07/21/24 20:59 40 mg HS LIZ Administration Calcium Carbonate 600 mg 06/23/24 09:00 07/03/24 08:20 Calcium Carbonate 600 Mg Tablet NG 07/23/24 08:59 Not Given QDAY [facility] Dextrose 25 ml 06/24/24 13:46 Dextrose 50%-Water Inj 50 Ml Syringe IV 07/24/24 13:45 Q15MIN PRN BG 50-70 responsive npo pt Dextrose 50 ml 06/24/24 13:46 Dextrose 50%-Water Inj 50 Ml Syringe IV 07/24/24 13:45 Q15MIN PRN BG <50 OR BG <70 & pt unresponsive Enoxaparin Sodium 20 mg 06/30/24 09:00 07/03/24 08:20 Enoxaparin Sod Inj 30 Mg/0.3 Ml Syringe SC 07/14/24 08:59 Not Given QDAY [facility] Ferrous Sulfate 300 mg 06/25/24 09:00 07/03/24 08:20 Ferrous Sulfate 300 Mg/5 Ml Udc NG 07/25/24 08:59 Not Given QDAY [facility] Fludrocortisone Acetate 0.2 mg 06/24/24 09:00 07/03/24 08:20 Fludrocortisone Acetate 0.1 Mg Tablet PO 07/24/24 08:59 Not Given QDAY [facility] Folic Acid 1 mg 06/29/24 16:00 07/03/24 08:20 Folic Acid Inj 1 Mg/0.2 Ml IVP 07/29/24 15:59 Not Given QDAY LIZ Glucagon 1 mg 06/24/24 13:46 Glucagon Inj 1 Mg Vial IM Q15MIN PRN BG <70, and no IV access Cefazolin Sodium 2 gm in 100 mls @ 100 mls/hr 07/01/24 21:00 07/02/24 09:05 Ancef 2gm Ivpb IV 07/08/24 20:59 100 mls/hr Q12HR LIZ Administration Piperacillin Sod/Tazobactam 100 mls @ 200 mls/hr 07/02/24 09:35 07/03/24 13:00 Sod 4.5 gm/ Sodium Chloride IV 07/12/24 09:34 200 mls/hr Q8HR LIZ Administration Dextrose/Sodium Chloride 1,000 mls @ 40 mls/hr 07/02/24 18:12 07/03/24 13:14 D5-Ns IV 07/03/24 17:41 40 mls/hr .Q24H ONE Administration Insulin Human Lispro 0 unit 06/24/24 18:00 07/03/24 11:45 Insulin Lispro (Admelog) 1 Unit/0.01 Ml Unit SC 07/24/24 17:59 Not Given Q6HR [facility] Protocol Magnesium Hydroxide 30 ml 06/15/24 13:50 Milk Of Magnesia Susp 30 Ml Udc NG 07/15/24 13:49 QDAY PRN CONSTIPATION Midodrine 5 mg 06/23/24 14:00 07/03/24 15:00 Midodrine 5 Mg Tablet PO 07/23/24 13:59 5 mg TID LIZ Administration Morphine Sulfate 2 mg 07/03/24 15:19 Morphine Sulf Inj 10 Mg/Ml Vial IVP 07/08/24 15:18 Q4HR PRN Pain 4-10 or distress Multivitamins/Minerals 15 ml 06/19/24 15:15 07/03/24 08:20 Multivitamin 15 Ml Udc NG 07/19/24 15:14 Not Given QDAY LIZ Pantoprazole Sodium 40 mg 06/16/24 09:00 07/03/24 08:48 Pantoprazole Inj 40 Mg Vial IVP 07/16/24 08:59 40 mg QDAY LIZ Administration Pharmacy Consult 1 each 06/15/24 18:27 Pharmacy To Consult Pneumovacc XX 07/15/24 18:26 PRN PRN CONSULT Potassium Chloride 40 meq 07/03/24 17:00 Potassium Chloride 10% 20 Meq/15 Ml Udc GT 07/03/24 17:01 X1 ONE Potassium Phos/Sodium Phos 1 packet 06/28/24 11:00 07/03/24 08:21 [facility] 1 Packet (1.5 Gm) PO 07/28/24 10:59 Not Given BID LIZ Sertraline HCl 100 mg 06/23/24 15:30 07/03/24 08:21 Sertraline Hcl 25 Mg Tablet NG 07/23/24 15:29 Not Given QDAY LIZ Simethicone 40 mg 07/02/24 09:30 07/03/24 08:21 Simethicone 40 Mg/0.6 Ml Oral Syringe GT 08/01/24 09:29 Not Given BID LIZ Sodium Chloride 3 ml 06/25/24 08:37 06/25/24 08:55 Sodium Chloride Rt Noreen 0.9% 3 Ml Nebu INH 07/25/24 08:36 3 ml PRN PRN Administration SOLN Thiamine HCl 100 mg 06/19/24 15:15 07/03/24 08:21 Thiamine Inj 100 Mg/Ml Vial 2 Ml IV 07/19/24 15:14 Not Given QDAY LIZ Plan 54 Y/O F with PMHx significant for Downs Syndrome, Schizophrenia,blindness, IBS, presents with chief complaint of AMS, last known normal 9 pm last night, admitted to ICU for septic shock requiring pressors and acute hypoxic respiratory failure requiring intubation. Neuro: #Acute encephalopathy, improving Multifactorial: hypoxia, S/p shock Low density areas in both basal ganglia seen on head CT On Presidex tapering down, withdraws to pain Neuro consult appreciated -EEG ordered, was significant for anoxic brain injury -Treat underlying conditions -Atorvastatin and aspirin #Schizophrenia #Depression Patient home medication risperidone 4mg BID, Sertraline 100mg daily, Ziprasidone 60mg BID and zolpidem 10mg PO HS -Resumed sertraline 100mg daily -Other home meds only given by care provider as needed, will continue to hold Cardio: #No active issues -MAP goal 50 Pulm: #AHRF 2/2 MSSA pneumonia Patient has history of Down syndrome, risk for aspiration pneumonia. Bacterial and viral pneumonia both possible. Influenza panel negative. MRSA screen negative. Sedated and mechanically ventilated Extubated on 06/24/24, but reintubated on 06/25 Patient extubated for second time, still severely hypoxic, requiring high flow nasal cannula. Patient desatted despite several hours of manual bagging, required reintubation. Tracheostomy performed 07/03/2024 -Sputum culture significant for MSSA pneumonia -On cefazolin 2 g 3 times daily 06/27/2024-07/02/2024 -Zosyn 07/02/24-07/12/24 -Titrate FiO2 as tolerated #Atelectasis Patient had episode of acute hypoxic respiratory failure the day following extubation. Patient required BVM to maintain oxygenation, was placed on high flow nasal cannula. Chest x-ray showed consolidation of left lower lung lobe, indicating atelectasis due to aspiration versus mucous plugging. Patient was repositioned on the right side with immediate improvement in O2 saturation and work of breathing. -CPT -Avoid positioning on left side -Breathing treatments -Tracheostomy to vent GI: #Severe protein malnutrition Patient BMI 14.9. Patient unable to provide history, per caregiver patient has good oral intake most times, has been malnourished for years due to chronic diarrhea, has not had significant weight loss recently. Patient has very little muscle mass, temporal wasting, sunken eyes. -Dietary consult, appreciate recommendations -Thiamine and multivitamin supplements -Tube feeds, advanced -daily labs -aggressive monitoring/repleting of potassium, phosphorous, magnesium -Tube feeds held pending PEG tube placement -GI consult placed for PEG tube placement -IVF: D5 NS 40 mL/h x 2 bags #IBS Patient history of IBS. Patient had diarrhea for 3 days prior to admission, not unusual for patient. Patient has been having regular bowel movements during hospital stay. -Monitor bowel movements -Treat metabolic abnormalities as needed Renal: #Metabolic alkalosis Unclear etiology: Possibly due to refeeding syndrome, hydrocortisone use Patient has had metabolic alkalosis, slowly getting progressively worse. Initially to be contraction alkalosis, however patient has had progression despite being off diuresis. Patient has inadequate respiratory compensation, pCO2 lower than expected for patient's serum bicarb. Serum bicarb 37.2, VBG showed pH 7.6, pCO2 40. Urine electrolyte studies showed random sodium 81, potassium 60, creatinine chloride 98.9. Metabolic alkalosis significantly improved after IVF normal saline. -Monitor daily labs -Continue tube feeds Endo: #Adrenal insufficiency Suspect due to chronic malnutrition. Patient arrived with hypotension, hypernatremia. Patient has been hypokalemic despite repletion and bradycardic. Clinical improvement with hydrocortisone followed by worsening when dosage reduced. -Fludracortisone increased to 0.2mg OG daily -monitor sodium and potassium #Hyperglycemia Patient has mild hyperglycemia, trending up. No history of diabetes. Likely due to steroid treatment. -Started on SSI lispro q6h -Monitor Heme: #Hematomas, resolved Hematomas in bilateral inguinal folds as complications of attempted femoral arterial line placement. Hematomas have resolved, leaving bruises and inguinal folds. -Monitor #Macrocytic anemia Patient hemoglobin 9.2, MCV 114. No previous labs to compare to. No obvious signs of acute bleeding. On 06/23: Hb 6.9, transfused 1 unit PRBC Folate and B12 not depleted. -Monitor #Leukocytosis Likely due to aspiration pneumonia and glucocorticosteroid. -Monitor ID: #MSSA bacteremia Blood cultures positive for MSSA bacteremia. Central line removed. Source is MSSA pneumonia. Blood cultures negative 06/29. New onset fever on 07/02/24, repeat blood cultures taken. Antibiotics widened. -Zosyn until 07/12/24 -follow up blood, urine, sputum cultures. #Aspiration Pneumonia #MSSA Pneumonia Patient in acute hypoxic respiratory failure, chest x-ray with left-sided consolidations. -On Unasyn (completed) -On Meropenem 06/25-06/27 -On cefazolin 2 g 3 times daily for GPC bacteremia and MSSA pneumonia. (started 06/27-07/02/24) -Zosyn until 07/12/24 Skin/MSK: #No active issues Lines: RIJ/PIV DVT prophylaxis: Lovenox G.I prophylaxis: Pantoprazole Code: Full code Plan of care discussed with attending Dr. Ashley. Live Cerrato MD PGY-1 Attending Provider Attestation/Addendum Patient seen and examined with above resident, Live Rojas MD. I agree with the findings, assessment, and plan of care as documented except for any differences below. Patient remains hemodynamically stable and afebrile on your antibiotics to Zosyn from cefazolin. Will follow-up cultures to see acute should attempt lowering antibiotic regimen for known MSSA bacteremia. Will complete course of 14 days nonetheless based on negative prior culture. Will need potential need to extend this if lab results return positive. Patient underwent tracheostomy placement today and plan for potential PEG tube by gastroenterology. Patient doing well on mechanical ventilation we will ensure adequate pain control prior to plan for pressure support trial and trach collar trials as appropriate. Tube feeds remain held at this time and will be resumed after clearance either way by gastroenterology. Maintained on fludrocortisone and noted hypokalemia today, will will replace and reassess tomorrow. Patient appears to be at baseline mentation. Abdominal film did show potential mula2 though there was no evidence of loss of tube. Caregiver with prior evaluation. Will reapproach them about this, no other intervention required as patient will likely pass the tooth and stool. Extensive gastrointestinal gas, will continue on simethicone. Also discussed with nutrition potential changing of tube feeds. Additional workup for malabsorption is warranted given her continued protein calorie malnutrition. Total critical care time: I personally spent 35 minutes for review of physiologic parameters, directing plan of care throughout the day, and coordination of care with other specialties. This is exclusive of time spent teaching housestaff or performing any separate billable procedures. Patient continues to require critical care services for acute hypoxic respiratory failure secondary to aspiration pneumonia with inability to be successfully weaned from extubation twice. Patient being transitioned to tracheostomy placement along with PEG tube for enteral nutrition. Patient is at high risk for further morbidity and mortality without close monitoring only available in the ICU.
[2024-07-03] MEDS: ATORVASTATIN CALCIUM 20 MG TABLET 40 MG PO (21:39)
[2024-07-03] MEDS: SIMETHICONE 40 MG/0.6 ML ORAL SYRINGE GT (21:39)
[2024-07-03] MEDS: NAPH,KPH MBDB 1 PACKET (1.5 GM) PO (21:39)
[2024-07-04] VITALS (107 sets, daily range): BP systolic 72–139; BP diastolic 47–91; PULSE 52–115; RESP 8–25; TEMP 36.2–37.9; O2SAT 89–100
[2024-07-04] MEDS: INSULIN LISPRO (AdmeLOG) 1 UNIT/0.01 ML UNIT SC (00:36)
[2024-07-04] MEDS: ALBUTEROL/IPRATROPIUM (Duoneb) RT SOL 3 ML NEBU INH ×2 (02:11→06:12)
[2024-07-04] MEDS: ACETYLCYSTEINE SOL 20% 4 ML NEBU 3 ML INH ×2 (02:11→06:12)
[2024-07-04] MEDS: DEXTROSE 50%-WATER INJ 50 ML SYRINGE IV (05:17)
[2024-07-04 05:21] LABS: Basophils % (Auto) 0 % (0-2.5); Eosinophils % (Auto) 0 % (0-10); Hematocrit 21.5 % (36.0-46.0); Immature Granulocytes % (Auto) 1 % (0-0); Immature Granulocytes Auto 0.06 Thou/mm3 (0.00-0.00); Lymphocytes # (Auto) 0.6 Thou/mm3 (1.0-4.8); Lymphocytes % (Auto) 5 % (10-50); Mean Corpuscular HGB Conc 32.6 g/dl (31.0-37.0); Mean Corpuscular Hemoglobin 33.3 pg (25.0-35.0); Mean Corpuscular Volume 102 fL (80-100); Monocytes # (Auto) 0.2 Thou/mm3 (0.0-0.8); Monocytes % (Auto) 2 % (0-12); Neutrophils # (Auto) 10.3 Thou/mm3 (1.8-7.7); Neutrophils % (Auto) 92 % (37-80); Nucleated Red Blood Cell % 0 /100 WBC (0); Platelet Count 189 Thou/mm3 (140-440); RDW Standard Deviation 66.2 fL (36.4-46.3); White Blood Count 11.2 Thou/mm3 (3.6-11.0)
[2024-07-04] MEDS: MIDODRINE 5 MG TABLET PO ×3 (05:22→21:31)
[2024-07-04] MEDS: PIPER/TAZO INJ 4.5 GM in SODIUM CHLORIDE 0.9% (P) 100 ML IV (05:22)
[2024-07-04 06:14] LABS: Alanine Aminotransferase < 7 U/L (10-49); Albumin, Serum 2.9 gm/dL (3.5-5.0); Albumin/Globulin Ratio 1.1 (1.2-2.2); Alkaline Phosphatase 99 U/L (46-116); Anion Gap 8 (7-16); Aspartate Amino Transferase 17 U/L (0-34); BUN/Creatinine Ratio 18 Ratio (12-20); Bilirubin,Total 0.4 mg/dL (0.3-1.2); Blood Urea Nitrogen 7 mg/dL (9-23); Calcium (Corrected) 8.9 mg/dL (8.5-10.1); Carbon Dioxide 29.2 mMol/L (20.0-31.0); Chloride 105 mMol/L (98-107); Creatinine (Component) 0.4 mg/dL (0.6-1.3); Estimated Creatinine Clearance 53.8 mL/min (>60); Globulin 2.6 gm/dL (2.3-3.5); Glucose 52 mg/dL (74-106); Osmolality,Calculated 278 (275-295); Sodium 142 mMol/L (136-145); Total Protein 5.5 gm/dL (5.7-8.2); eGFR > 60 See Note
[2024-07-04 06:29] LABS: Potassium 2.7 mMol/L (3.4-5.1)
[2024-07-04] MEDS: POTASSIUM CHLORIDE 10% 20 MEQ/15 ML UDC 40 MEQ GT ×2 (06:46→10:30)
--- NOTE | 2024-07-04 07:32 | XR_ITS ---
Examination: AP chest single view TECHNIQUE: AP portable semiupright chest single view Exam date and time: July 04, 2024 0746 hours Comparison July 02, 2024 INDICATIONS: Hypoxic respiratory failure, pneumonia on earlier chest imaging this week. FINDINGS: Tracheostomy tube tip 4.8 cm above tiki COPD with significant hyperexpansion Prominent central pulmonary arteries Bilateral perihilar left basilar pneumonia Prominent osteopenia IMPRESSION: COPD Pulmonary artery hypertension Bilateral perihilar left basilar pneumonia Tracheostomy tube tip 4.8 cm above tiki
[2024-07-04 08:03] LABS: Base Excess 8 (-3-3); HCO3 31 mEq/L (20-26); Inspired Oxygen, FIO2 21 %; O2 Saturation 96 % (91-98); PCO2 40 mmHg (32.0-48.0); PO2 70 mmHg (83-108)
[2024-07-04 08:04] LABS: Allen Test Performed/OK; Puncture Site Right Radial
[2024-07-04] MEDS: THIAMINE INJ 100 MG/ML VIAL 2 ML IV (08:46)
[2024-07-04] MEDS: ENOXAPARIN SOD INJ 30 MG/0.3 ML SYRINGE 20 MG SC (08:46)
[2024-07-04] MEDS: PANTOPRAZOLE INJ 40 MG VIAL IVP (08:46)
[2024-07-04] MEDS: NAPH,KPH MBDB 1 PACKET (1.5 GM) PO ×2 (08:47→21:24)
[2024-07-04] MEDS: FLUDROCORTISONE ACETATE 0.1 MG TABLET 0.2 MG PO (08:47)
[2024-07-04] MEDS: MULTIVITAMIN 15 ML UDC NG (08:47)
[2024-07-04] MEDS: SIMETHICONE 40 MG/0.6 ML ORAL SYRINGE GT ×2 (08:47→21:24)
[2024-07-04] MEDS: CALCIUM CARBONATE 600 MG TABLET NG (08:47)
[2024-07-04] MEDS: ASPIRIN 81 MG CHEW PO (08:47)
[2024-07-04] MEDS: Ferrous Sulfate 300 MG/5 ML UDC NG (08:47)
[2024-07-04] MEDS: SERTRALINE HCL 25 MG TABLET 100 MG NG (10:29)
[2024-07-04 11:04] LABS: Magnesium 1.4 mg/dL (1.6-2.6); Phosphorous 2.1 mg/dL (2.4-5.1)
[2024-07-04] MEDS: Magnesium Sulfate 2 GM Ivpb 2 GM/50 ML BAG IV (12:16)
--- NOTE | 2024-07-04 13:14 | PD.SURPROG ---
Documentation for date of: 07/04/24 Subjective Subjective Narrative: Patient is seen and examined. No acute overnight events Exam Vital Signs Temp Pulse Resp BP Pulse Ox O2 Del Method O2 Flow Rate 98.3 F 70 12 85/60 L 98 Mechanical Ventilation 6 07/04/24 08:00 07/04/24 10:18 07/04/24 10:18 07/04/24 10:00 07/04/24 10:18 07/04/24 08:00 07/04/24 10:18 FiO2 28 07/04/24 10:18 Constitutional Constitutional: no acute distress Routine Neck Exam Comments: Tracheostomy in place and intact without bleeding or leakage Assessment & Plan Assessment Additional comments: Postop day #1 status post tracheostomy Plan No bleeding or drainage from tracheostomy and patient has been tolerating. Continue routine tracheostomy care. Please call for any questions Procedures Procedures Tracheostomy with size 6 cuffed tracheostomy
[2024-07-04] MEDS: ALBUTEROL RT 2.5 MG/0.5 ML NEBU INH ×2 (14:06→23:21)
[2024-07-04] MEDS: SODIUM CHLORIDE RT SOL 0.9% 3 ML NEBU INH (14:06)
--- NOTE | 2024-07-04 15:10 | PC.SS ---
Update: Patient has received PEG placement.
[2024-07-04 16:04] LABS: Anion Gap 6 (7-16); BUN/Creatinine Ratio 12 Ratio (12-20); Blood Urea Nitrogen 6 mg/dL (9-23); Carbon Dioxide 30.3 mMol/L (20.0-31.0); Chloride 107 mMol/L (98-107); Creatinine (Component) 0.5 mg/dL (0.6-1.3); Glucose 93 mg/dL (74-106); Osmolality,Calculated 282 (275-295); Potassium 4.2 mMol/L (3.4-5.1); Sodium 143 mMol/L (136-145); eGFR > 60 See Note
--- NOTE | 2024-07-04 16:21 | ESPR_ITS ---
<Statement entered by Janett Manzano DO - 07/04/24 18:19> Senior attestation: Patient was examined and case was reviewed with team including attending physician. Note reviewed, I agree with most of its contents and agree with the patient's care. No overnight episodes reported, patient will be started on Vital tube feeds. Will give 1L fluids today, then continue tube feeds after fluids are completed. Potassium noted to down-trended 2.7, possibly related to fludrocortisone dose which will be decreased to 0.1mg qday today. Stool osmolarity ordered to investigate diarrhea post intake. Will continue cefazolin for total of 14 days from first negative blood culture. Will likely be discharged to [facility] once more stable, possibly on Friday 07/07 if condition continues to improve. Janett Manzano DO PGY-3 Documentation for date of: 07/04/24 Subjective Subjective Interval history: 54 Y/O F with PMHx significant for Downs Syndrome, Schizophrenia,blindness, IBS, presents with chief complaint of AMS, last known normal 9 pm last night. Patient in unable to provide history, history taken from caregiver at bedside. Patient has had cough for about five days, noted sore throat. Patient has had diarrhea for 3 days, which is not uncommon for patient due to IBS. Patient was last seen at 9 pm last night. This morning patient was found unresponsive in her bed by caregiver. Patient is brought to ED, patient found to have low GCS, hypoxia with O2 sat 60% on nonrebreather, blood pressure 84 over palp. Patient was started on pressors, intubated. Patient had CODE BLUE, with 1 dose of epi before ROSC. Patient ventilated, started on sedation with propofol. Patient given 7 to 50 mL normal saline bolus and Rocephin in the ED. Blood urine and sputum cultures taken. 06/24/2024: The patient was examined and evaluated at the bedside this morning. The patient seemed more alert today. Patient was on pressor support with Levophed 0.08, vasopressin 0.03 and dopamine 10, breathing spontaneously on mechanical ventilation with pressure support. White count trended down to 17.4, hemoglobin 7.8, sodium stable at 124, potassium 3.4, calcium 8.3, magnesium 1.7 and we repleted magnesium 2 g IV, started on calcium carbonate 600 Mg daily, blood sugar 293, started the patient on SSI sensitive scale. 40 mEq of KCl was repleted. The phosphorus was 2.5, and we increased the dose of Neutra-Phos to 2 packs twice daily. The patient was successfully extubated to oxy mask. Discussion regarding the decision maker was done by me with patient's sister Annamarie Wilson in the presence of SRIKANTH Julian. Patient's Sister Annamarie Wilson verbally stated that Ayala Indy, who has been the table cut off saw operator of the patient would be the decision maker for the patient for medical management and CODE STATUS changes. 06/25/2024: The patient was examined and evaluated at the bedside this morning. Overnight, the patient was desaturating in 80s, and was started on NC, transitioned to oxy mask, transition to BiPAP and finally was reintubated. Chest x-ray was significant for left lower lung pneumonia, likely secondary to aspiration pneumonia as patient was recently extubated, and given her underlying severe malnutrition was started on tube feed. Patient is on fentanyl drip to maintain RASS of 0, and on pressor support with Levophed, vasopressin and dopamine. She continues to be in sinus bradycardia. White count elevated to 13.5 in the setting of aspiration pneumonia, sodium continues to be 125, and she was given 500 cc of IV normal saline bolus, potassium 3.4 and was given 40 mEq of KCl. 06/26/2024: The patient was examined and evaluated at the bedside this morning. Overnight, patient did not had any acute overnight events. White count mildly trended down to 31.2, cultures pending, we discontinued linezolid and we will continue with meropenem at this point. Patient tapered down on dopamine to 7.5, and other pressor support discontinued. We considered for MAP to be stable if greater than 50, as demonstrated by normal lactic acid level at MAP greater than 50. The plan is to extubate the patient tomorrow morning. 06/27/2024: The patient was examined and evaluated at the bedside this morning again. Overnight no acute events. White count trended down to 21.5, ABG revealed pH 7.47, pCO2 46, and bicarb 34. Potassium was 2.8, and was repleted. Blood sugar this morning was 278 with mild transaminitis. We stopped dopamine drip, and the MAP goal is greater than 50. We will try for SBT tomorrow morning. Goals of care discussion was done, and Ayala Putnam who is the decision-maker recommended to proceed with tracheostomy tube if required. 06/28/2024: Patient seen and examined at bedside. Overnight patient became agitated with worsening sinus tachycardia, received 0.5 mg Ativan x 1, after which patient became hypotensive requiring Levophed to be resumed. Levophed titrate down to 0.03, held there to maintain MAP while patient is extubated. On exam patient is more active, opening eyes and moving all extremities. Patient tolerated pressure support well, with successfully extubated without complications. Patient strict n.p.o. VBG showed pH 7.56, pCO2 41, pO2 41. Lactate 2.0. Phosphorus 2.1, received 15 mmol potassium phosphate. Central line removed, Levophed transferred to peripheral IV. 06/29/2024: Patient seen and examined at bedside. Patient was reportedly very active overnight. In the morning, patient became acutely hypoxic, required BVM to maintain oxygen saturations. Chest x-ray showed consolidation of left lung base indicating atelectasis, possibly due to aspiration versus mucous plugging. Patient was repositioned on the right side and placed on high flow nasal cannula with immediate improvement in oxygenation. Will continue to titrate FiO2 as tolerated by patient. Levophed was discontinued. Repeat blood cultures drawn today for MSSA bacteremia. 06/30/2024: Patient seen and examined at bedside. In the morning patient had episode of desaturation down to low 80s. Patient was repositioned and sat up, high flow nasal cannula increased to 100% FiO2 at 40 L/min. Oxygen saturation improved. Goals of care conversation held with table cut off saw operator, explained that patient required intubation patient required tracheostomy and PEG tube placement for long-term rehabilitation. [employer] fully understands and wishes to proceed with full and aggressive treatment. Plan to have patient sit up in chair and attempt to maintain O2 saturations, if needed will reintubate patient and consult general surgery for tracheostomy and PEG tube placement. Started patient on D10 NS for nutritional support. 07/01/2024: Patient seen and examined at bedside. In the valet service attendant patient had severe desaturation, was manually bagged for several hours but continued to have poor saturations and developed cyanosis. Patient was reintubated due to acute hypoxic respiratory failure. As per previous conversations with table cut off saw operator, general surgery consult placed for tracheostomy and GI consult placed for PEG tube placement. Tube feeds initiated. Patient not sedated, compliant with vent. 07/02/2024: Patient seen and examined at bedside. Patient developed fever of 100.6 in valet service attendant. PEG tube placement was postponed, and tube feeds resumed. Antibiotics broadened to zosyn. Sputum, blood, and urine cultures collected. CXR ordered. Patient off sedation, remains compliant with vent. Continuing breathing treatments and CPT. 07/03/2024: Patient seen and examined at bedside. Patient has been afebrile overnight. Patient had tracheostomy placement performed today, procedure completed without incident. NG tube placed to allow medication administration. Discussed changing patient's tube feeds to something easier to absorb with dietary, recommendations placed. Tube feeds held pending PEG tube placement later today. Send out test for stool osmolarity sent to [facility] for malabsorption. 07/04/23: Patient seen and examined at bedside. No acute events overnight. Today she is awake but unable to follow commands. Patient is status post tracheostomy and PEG tube placement. Dietary team was consulted and patient was started on Vital 1.2 at 10 mL/h. Advance 10 mL every 8 hours to goal rate of 35 mL/h. No bleeding or drainage noticed from tracheostomy site. Potassium had down trended to 2.7 today. May be in setting of fludrocortisone for treatment of adrenal insufficiency. Will change dose from 0.2 mg to 0.1 mg daily and monitor daily potassium and BP. She was repleted with 40+40 mEq today via GT. Patient has history of malabsorption indicated via immediate episodes of diarrhea after any food intake. Stool osmolarity sent for possible etiology. Vitals significant for low blood pressure 80/65, heart rate 68, respiratory rate 20, no fevers. WBC 11.2, macrocytic anemia MCV 102 hemoglobin 7, platelets 189. Sodium 142, hypokalemia 2.7, creatinine 0.4. Today ABG revealing metabolic alkalosis pH 7.5, pCO2 40, pO2 70, bicarb 31, FiO2 21, PF ratio 333. Continue close monitoring of potassium, sodium, blood pressure. Stop Zosyn and continue cefazolin 2 g TID for treatment of MSSA bacteremia. Exam Vital Signs Temp Pulse Resp BP Pulse Ox O2 Del Method O2 Flow Rate 99.4 F 64 22 H 98/59 L 100 Blow-by 6 07/04/24 16:00 07/04/24 16:00 07/04/24 16:00 07/04/24 16:00 07/04/24 16:00 07/04/24 16:00 07/04/24 16:00 FiO2 28 07/04/24 16:00 Narrative Exam PE: Gen: Extremely cachexic, makes continuous orofacial movements, licking lips, non verbal HEENT: Dry mucous membranes. Left eye heavily scarred, right eye glassy. Scarring around nares, tracheostomy CVS: normal S1 and S2. No M/R/G. Resp: No rhonchi, rales, crackles or wheezing. Diminished lung sounds, coarse. Abd: soft, non-tender, non-distended, PEG tube MSK: No edema. Multiple old scars/wounds on all extremities, patient has history of self-inflicted injuries, picking at skin. Significant bruises at left/right inguinal folds. Neuro: unable to evaluate, does not seem to track movement Objective Labs 07/05/24 04:53 07/05/24 04:53 Labs: Laboratory Results - last 24 hr 07/04/24 07/04/24 07/04/24 05:02 07:54 10:30 WBC 11.2 H RBC 2.10 L Hgb 7.0 L Hct 21.5 L* MCV 102 H MCH 33.3 MCHC 32.6 RDW Std Deviation 66.2 H Plt Count 189 Neut % (Auto) 92 H Lymph % (Auto) 5 L Lake % (Auto) 2 Eos % (Auto) 0 Baso % (Auto) 0 Neut # (Auto) 10.3 H Lymph # (Auto) 0.6 L [place] # (Auto) 0.2 Eos # (Auto) 0.0 Baso # (Auto) 0.0 Immature Gran # (Auto) 0.06 H Absolute Nucleated RBC 0.00 Immature Gran % 1 H Nucleated RBC % 0 Puncture Site Right Radial ABG pH 7.50 H ABG pCO2 40 ABG pO2 70 L D ABG HCO3 31 H ABG O2 Saturation 96 ABG Base Excess 8 H FiO2 21 Sodium 142 Potassium 2.7 L* D Chloride 105 Carbon Dioxide 29.2 Anion Gap 8 BUN 7 L Creatinine 0.4 L Estim Creat Clear Calc 53.8 L eGFR > 60 BUN/Creatinine Ratio 18 Glucose 52 L D Calculated Osmolality 278 Calcium 8.0 L Corrected Calcium 8.9 Phosphorus 2.1 L Magnesium 1.4 L Total Bilirubin 0.4 AST 17 ALT < 7 L Alkaline Phosphatase 99 Total Protein 5.5 L Albumin 2.9 L Globulin 2.6 Albumin/Globulin Ratio 1.1 L ABG Interpretation ABG results: 06/15/24 06/15/24 06/15/24 11:06 14:05 17:00 ABG pH 7.23 L 7.33 L D 7.34 L ABG pCO2 69 H 56 H D 57 H ABG pO2 153 H 67 L D 65 L ABG HCO3 29 H 29 H 30 H ABG O2 Saturation 99 H 92 91 ABG Base Excess 0 3 4 H VBG pH VBG pCO2 VBG pO2 VBG Base Excess 06/16/24 06/17/24 06/18/24 04:04 04:36 04:04 ABG pH 7.35 7.42 7.53 H D ABG pCO2 57 H 54 H 57 H ABG pO2 58 L* 77 L 73 L ABG HCO3 31 H 35 H 47 H ABG O2 Saturation 88 L 96 96 ABG Base Excess 5 H 9 H 22 H VBG pH VBG pCO2 VBG pO2 VBG Base Excess 06/19/24 06/22/24 06/23/24 04:12 17:30 09:55 ABG pH 7.54 H ABG pCO2 50 H ABG pO2 61 L ABG HCO3 42 H ABG O2 Saturation 93 ABG Base Excess 18 H VBG pH 7.46 7.49 VBG pCO2 43 41 VBG pO2 98 H 39 D VBG Base Excess 6 H 7 H 06/25/24 06/26/24 06/27/24 05:04 12:08 04:54 ABG pH 7.47 H 7.48 H ABG pCO2 43 45 ABG pO2 60 L 41 L* ABG HCO3 31 H 34 H ABG O2 Saturation 92 77 L ABG Base Excess 6 H 9 H VBG pH 7.43 VBG pCO2 47 VBG pO2 35 VBG Base Excess 6 H 06/27/24 06/28/24 06/28/24 06:23 04:27 13:19 ABG pH 7.47 H 7.55 H ABG pCO2 46 41 ABG pO2 157 H D 78 L D ABG HCO3 34 H 36 H ABG O2 Saturation 100 H 98 ABG Base Excess 9 H 13 H VBG pH 7.56 VBG pCO2 41 VBG pO2 41 VBG Base Excess 13 H 06/29/24 07/01/24 07/02/24 15:15 06:59 05:03 ABG pH 7.39 7.55 H D ABG pCO2 67 H 41 D ABG pO2 80 L 99 ABG HCO3 41 H 36 H ABG O2 Saturation 95 99 H ABG Base Excess 13 H 12 H VBG pH 7.61 VBG pCO2 40 VBG pO2 76 H D VBG Base Excess 18 H 07/04/24 07:54 ABG pH 7.50 H ABG pCO2 40 ABG pO2 70 L D ABG HCO3 31 H ABG O2 Saturation 96 ABG Base Excess 8 H VBG pH VBG pCO2 VBG pO2 VBG Base Excess Quality Measures Quality Measures VTE prophylaxis Assessment & Plan Assessment Current Active Medications: Generic Name Dose Route Start Last Admin Trade Name Freq PRN Reason Stop Dose Admin Acetaminophen 650 mg 06/15/24 13:50 Acetaminophen Supp 650 Mg Supp RI 07/15/24 13:49 Q4HR PRN PAIN SCALE 1-3 (mild Acetaminophen 650 mg 06/19/24 07:27 07/02/24 04:39 Acetaminophen Noreen 325 Mg/10 Ml Udc NG 07/19/24 07:26 650 mg Q4HR PRN Administration Pain Or Fever > 100.4 Protocol Al Hydrox/Mg Hydrox/Simethicone 30 ml 06/15/24 13:50 Mg Hyd/Al Hyd/[place] (Maalox Reg) Susp 30 Ml Udc NG 07/15/24 13:49 Q4HR PRN Heartburn or Upset Stomach Albuterol 2.5 mg 07/04/24 15:00 07/04/24 14:06 Albuterol Rt 2.5 Mg/0.5 Ml Nebu INH 08/03/24 14:59 2.5 mg Q8HRRT LIZ Administration Aspirin 81 mg 06/23/24 09:00 07/04/24 08:47 Aspirin 81 Mg Chew PO 07/23/24 08:59 81 mg QDAY LIZ Administration Atorvastatin Calcium 40 mg 06/21/24 21:00 07/03/24 21:39 Atorvastatin Calcium 20 Mg Tablet PO 07/21/24 20:59 40 mg HS LIZ Administration Calcium Carbonate 600 mg 06/23/24 09:00 07/04/24 08:47 Calcium Carbonate 600 Mg Tablet NG 07/23/24 08:59 600 mg QDAY LIZ Administration Dextrose 25 ml 06/24/24 13:46 Dextrose 50%-Water Inj 50 Ml Syringe IV 07/24/24 13:45 Q15MIN PRN BG 50-70 responsive npo pt Dextrose 50 ml 06/24/24 13:46 07/04/24 05:17 Dextrose 50%-Water Inj 50 Ml Syringe IV 07/24/24 13:45 50 ml Q15MIN PRN Administration BG <50 OR BG <70 & pt unresponsive Enoxaparin Sodium 20 mg 06/30/24 09:00 07/04/24 08:46 Enoxaparin Sod Inj 30 Mg/0.3 Ml Syringe SC 07/14/24 08:59 20 mg QDAY LIZ Administration Ferrous Sulfate 300 mg 06/25/24 09:00 07/04/24 08:47 Ferrous Sulfate 300 Mg/5 Ml Udc NG 07/25/24 08:59 300 mg QDAY LIZ Administration Fludrocortisone Acetate 0.1 mg 07/05/24 09:00 Fludrocortisone Acetate 0.1 Mg Tablet PO 08/04/24 08:59 QDAY LIZ Glucagon 1 mg 06/24/24 13:46 Glucagon Inj 1 Mg Vial IM Q15MIN PRN BG <70, and no IV access Cefazolin Sodium 2 gm in 100 mls @ 100 mls/hr 07/01/24 21:00 07/04/24 10:00 Ancef 2gm Ivpb IV 07/08/24 20:59 Infused Q12HR [facility] Infusion Insulin Human Lispro 0 unit 06/24/24 18:00 07/04/24 11:39 Insulin Lispro (Admelog) 1 Unit/0.01 Ml Unit SC 07/24/24 17:59 Not Given Q6HR [facility] Protocol Magnesium Hydroxide 30 ml 06/15/24 13:50 Milk Of Magnesia Susp 30 Ml Udc NG 07/15/24 13:49 QDAY PRN CONSTIPATION Midodrine 5 mg 06/23/24 14:00 07/04/24 14:37 Midodrine 5 Mg Tablet PO 07/23/24 13:59 5 mg TID LIZ Administration Morphine Sulfate 2 mg 07/03/24 15:19 Morphine Sulf Inj 10 Mg/Ml Vial IVP 07/08/24 15:18 Q4HR PRN Pain 4-10 or distress Multivitamins/Minerals 15 ml 06/19/24 15:15 07/04/24 08:47 Multivitamin 15 Ml Udc NG 07/19/24 15:14 15 ml QDAY LIZ Administration Pantoprazole Sodium 40 mg 06/16/24 09:00 07/04/24 08:46 Pantoprazole Inj 40 Mg Vial IVP 07/16/24 08:59 40 mg QDAY LIZ Administration Pharmacy Consult 1 each 06/15/24 18:27 Pharmacy To Consult Pneumovacc XX 07/15/24 18:26 PRN PRN CONSULT Potassium Phos/Sodium Phos 1 packet 06/28/24 11:00 07/04/24 08:47 [place],[facility] 1 Packet (1.5 Gm) PO 07/28/24 10:59 1 packet BID LIZ Administration Sertraline HCl 100 mg 06/23/24 15:30 07/04/24 10:29 Sertraline Hcl 25 Mg Tablet NG 07/23/24 15:29 100 mg QDAY LIZ Administration Simethicone 40 mg 07/02/24 09:30 07/04/24 08:47 Simethicone 40 Mg/0.6 Ml Oral Syringe GT 08/01/24 09:29 40 mg BID LIZ Administration Sodium Chloride 3 ml 07/04/24 10:05 07/04/24 14:06 Sodium Chloride Rt Noreen 0.9% 3 Ml Nebu INH 08/03/24 10:04 3 ml PRN PRN Administration SOLN Plan 54 Y/O F with PMHx significant for Downs Syndrome, Schizophrenia,blindness, IBS, presents with chief complaint of AMS, last known normal 9 pm last night, admitted to ICU for septic shock requiring pressors and acute hypoxic respiratory failure requiring intubation. Neuro: #Acute metabolic encephalopathy, improving Multifactorial: hypoxia, S/p shock, electrolytes imbalance Low density areas in both basal ganglia seen on head CT -Neurologist Dr. Jaeger was consulted. Recs are pending. -EEG completed-interpreted as abnormal with diffuse slowing suggestive of a diffuse encephalopathy of hypoxic origin per neurology. #Hx Schizophrenia #Hx Depression -Patient's home medication risperidone 4mg BID, Ziprasidone 60mg BID, and zolpidem 10mg PO HS held -continue with Sertraline 100mg daily Cardio: #Hypotension in setting of resolving sepsis -continue midodrine 5 mg TID for hypotension Pulm: #AHRF 08/03 #MSSA pneumonia Patient has history of Down syndrome, risk for aspiration pneumonia. Bacterial and viral pneumonia both possible. Influenza panel negative. MRSA screen negative. Sedated and mechanically ventilated Extubated on 06/24/24, but reintubated on 06/25 Patient extubated for second time, still severely hypoxic, requiring high flow nasal cannula. Patient desatted despite several hours of manual bagging, required reintubation. Tracheostomy performed 07/03/2024 -Sputum culture positive for MSSA pneumonia on 06/25 -continue cefazolin 2 g 3 times daily for 14 days (until Jul 11, 2024) -stop Zosyn (07/02/24-07/04/23) #Atelectasis Patient had episode of acute hypoxic respiratory failure the day following extubation. Patient required BVM to maintain oxygenation, was placed on high flow nasal cannula. Chest x-ray showed consolidation of left lower lung lobe, indicating atelectasis due to aspiration versus mucous plugging. Patient was repositioned on the right side with immediate improvement in O2 saturation and work of breathing. -CPT -Avoid positioning on left side -Breathing treatments -Tracheostomy to vent #s/p tracheostomy Unable to successfully extubate. Underwent tracheostomy on 07/03 for long-term mechanical ventilation. Respiratory rate 20, tidal volume 260, PEEP 8.0, FiO2 21 GI: #Severe protein malnutrition #s/p PEG tube placement Patient BMI 14.9. Patient unable to provide history, per caregiver patient has good oral intake most times, has been malnourished for years due to chronic diarrhea, has not had significant weight loss recently. Patient has very little muscle mass, temporal wasting, sunken eyes. GI was consulted and patient underwent PEG tube placement on 07/03. -Dietary team was consulted and patient to be started on Vital 1.2 at 10 mL/h. Advance 10 mL every 8 hours to goal rate of 35 mL/h. -daily labs -aggressive monitoring/repleting of potassium, phosphorous, magnesium #IBS Patient history of IBS. Patient had diarrhea for 3 days prior to admission, not unusual for patient. Per caregiver, patient also experiences diarrhea after any food intake. Possible underlying malabsorption (celiac vs pancreatic insufficiency vs lactose deficiency vs Crohn's) -Monitor bowel movements -Follow-up with stool osmolarity test -Treat metabolic abnormalities as needed Renal: #Contraction alkalosis Unclear etiology: Possibly due to refeeding syndrome, in setting of diarrhea, hydrocortisone use. Patient has had metabolic alkalosis, progressively worsening. Patient has inadequate respiratory compensation, pCO2 lower than expected for patient's serum bicarb. ABG revealing metabolic alkalosis pH 7.5, pCO2 40, pO2 70, bicarb 31, FiO2 21, PF ratio 333. Urine electrolyte studies showed random sodium 81, potassium 60, creatinine chloride 98.9. -Monitor daily labs -Continue PEG feeds Endo: #Adrenal insufficiency Suspect due to chronic malnutrition. Patient arrived with hypotension, hypernatremia. Patient has been hypokalemic despite repletion and bradycardic. Clinical improvement with hydrocortisone followed by worsening when dosage reduced. However today there is concern for hyperkalemia induced 5 increase dose of fludrocortisone. -Decrease fludrocortisone from 0.2 mg to 0.1 mg -monitor sodium and potassium #Hyperglycemia-resolved Patient had mild hyperglycemia that was uptrending. No history of diabetes. Likely due to steroid treatment. -Started on SSI lispro q6h -Monitor Heme: #Hematomas, resolved Hematomas in bilateral inguinal folds as complications of attempted femoral arterial line placement. Hematomas have resolved, leaving bruises and inguinal folds. -Monitor #Macrocytic anemia Patient hemoglobin 9.2, MCV 114. No previous labs to compare to. No obvious signs of acute bleeding. On 06/23: Hb 6.9, transfused 1 unit PRBC Folate and B12 not depleted. -Monitor -today Hb 7.0, MCV 102 ID: #[id number] bacteremia Blood cultures positive for MSSA bacteremia, source likely being MSSA pneumonia. Central line was removed. Blood cultures negative 06/29. New onset fever on 07/02/24, repeat blood cultures taken. -Repeat blood cultures negative -Stop Zosyn -continue cefazolin for total of 14 days for MSSA bacteremia #Aspiration Pneumonia #MSSA Pneumonia Patient in acute hypoxic respiratory failure, chest x-ray with left-sided consolidations. -On cefazolin 2 g 3 times daily Health maintenance: Lines: RIJ/PIV DVT prophylaxis: Lovenox G.I prophylaxis: Pantoprazole Code: Full code Plan of care discussed with attending Dr. Ashley and senior Dr. Manzano. Rand Pisano, PGY1 Attending Provider Attestation/Addendum Patient seen and examined with above resident, Rand Pisano MD. I agree with the findings, assessment, and plan of care as documented except for any differences below. Patient doing well post trach and PEG in the last 24 hours. Will resume tube feeds as per recommendations from GI. Patient will be trialed on pressure support and if does well transition to trach collar. Will plan for continued resting the patient overnight. Positive pressure in relation back on vent. Patient can begin physical therapy and will continue to progress towards likely LTAC versus fpc facility placement. Patient without evidence of superimposed infection after diagnosis of MSSA pneumonia and bacteremia, complete 2-week course total of antibiotics with narrowing back to cefazolin. Will monitor for development of any further infection. Patient with significant bowel gas likely in the setting of malabsorption, will discuss with nutrition adjustments and tube feeds to be more elemental and with reduced fiber. Will also assess ability to send for stool osmolarity to exclude presence of malabsorption syndrome in setting of possible small intestinal bacterial overgrowth versus pancreatic insufficiency. Patient with significant metabolic alkalosis as well as hypokalemia, electrolyte replacement and fluids administered. This is all likely secondary to fludrocortisone which we we will plan to taper off in the coming days. Recheck electrolytes this afternoon to ensure adequate replacement. Patient's family not at bedside for update throughout the day. Total critical care time: I personally spent 35 minutes for review of physiologic parameters, directing plan of care throughout the day, and coordination of care with other subspecialties. This is exclusive of time spent teaching of staff or performing any separate billable procedures. Patient continues to require critical care services for her acute hypoxic respiratory failure secondary to recurrent aspiration pneumonia now MSSA bacteremia. Patient with significant protein calorie malnutrition limiting ability to successfully wean without recurrence. Patient remains at risk for increased morbidity and mortality warranting ongoing care and monitoring only available in the intensive care unit.
--- NOTE | 2024-07-04 18:29 | PD.IMPROG ---
Documentation for date of: 07/04/24 Subjective Subjective Interval history: Patient on vital 10 mL/h final goal of 35 mL/h PEG site looks good No drainage Exam Vital Signs Temp Pulse Resp BP Pulse Ox O2 Del Method O2 Flow Rate 99.4 F 63 12 123/70 100 Blow-by 6 07/04/24 16:00 07/04/24 17:30 07/04/24 17:30 07/04/24 17:30 07/04/24 17:30 07/04/24 16:00 07/04/24 16:00 FiO2 28 07/04/24 16:00 Objective Labs 07/04/24 05:02 07/04/24 15:06 Labs: Laboratory Results - last 24 hr 07/04/24 07/04/24 07/04/24 05:02 07:54 10:30 WBC 11.2 H RBC 2.10 L Hgb 7.0 L Hct 21.5 L* MCV 102 H MCH 33.3 MCHC 32.6 RDW Std Deviation 66.2 H Plt Count 189 Neut % (Auto) 92 H Lymph % (Auto) 5 L [place] % (Auto) 2 Eos % (Auto) 0 Baso % (Auto) 0 Neut # (Auto) 10.3 H Lymph # (Auto) 0.6 L [place] # (Auto) 0.2 Eos # (Auto) 0.0 Baso # (Auto) 0.0 Immature Gran # (Auto) 0.06 H Absolute Nucleated RBC 0.00 Immature Gran % 1 H Nucleated RBC % 0 Puncture Site Right Radial ABG pH 7.50 H ABG pCO2 40 ABG pO2 70 L D ABG HCO3 31 H ABG O2 Saturation 96 ABG Base Excess 8 H FiO2 21 Sodium 142 Potassium 2.7 L* D Chloride 105 Carbon Dioxide 29.2 Anion Gap 8 BUN 7 L Creatinine 0.4 L Estim Creat Clear Calc 53.8 L eGFR > 60 BUN/Creatinine Ratio 18 Glucose 52 L D Calculated Osmolality 278 Calcium 8.0 L Corrected Calcium 8.9 Phosphorus 2.1 L Magnesium 1.4 L Total Bilirubin 0.4 AST 17 ALT < 7 L Alkaline Phosphatase 99 Total Protein 5.5 L Albumin 2.9 L Globulin 2.6 Albumin/Globulin Ratio 1.1 L 07/04/24 15:06 WBC RBC Hgb Hct MCV MCH MCHC RDW Std Deviation Plt Count Neut % (Auto) Lymph % (Auto) [place] % (Auto) Eos % (Auto) Baso % (Auto) Neut # (Auto) Lymph # (Auto) [place] # (Auto) Eos # (Auto) Baso # (Auto) Immature Gran # (Auto) Absolute Nucleated RBC Immature Gran % Nucleated RBC % Puncture Site ABG pH ABG pCO2 ABG pO2 ABG HCO3 ABG O2 Saturation ABG Base Excess FiO2 Sodium 143 Potassium 4.2 D Chloride 107 Carbon Dioxide 30.3 Anion Gap 6 L BUN 6 L Creatinine 0.5 L Estim Creat Clear Calc 43.0 L eGFR > 60 BUN/Creatinine Ratio 12 Glucose 93 D Calculated Osmolality 282 Calcium 8.0 L Corrected Calcium Phosphorus Magnesium Total Bilirubin AST ALT Alkaline Phosphatase Total Protein Albumin Globulin Albumin/Globulin Ratio Impressions Impression: # Failure to thrive # Placement of a PEG tube for enteral hyperalimentation Currently on vital at 10 mL/h Ultimate goal is to ABG Interpretation ABG results: 06/15/24 06/15/24 06/15/24 11:06 14:05 17:00 ABG pH 7.23 L 7.33 L D 7.34 L ABG pCO2 69 H 56 H D 57 H ABG pO2 153 H 67 L D 65 L ABG HCO3 29 H 29 H 30 H ABG O2 Saturation 99 H 92 91 ABG Base Excess 0 3 4 H VBG pH VBG pCO2 VBG pO2 VBG Base Excess 06/16/24 06/17/24 06/18/24 04:04 04:36 04:04 ABG pH 7.35 7.42 7.53 H D ABG pCO2 57 H 54 H 57 H ABG pO2 58 L* 77 L 73 L ABG HCO3 31 H 35 H 47 H ABG O2 Saturation 88 L 96 96 ABG Base Excess 5 H 9 H 22 H VBG pH VBG pCO2 VBG pO2 VBG Base Excess 06/19/24 06/22/24 06/23/24 04:12 17:30 09:55 ABG pH 7.54 H ABG pCO2 50 H ABG pO2 61 L ABG HCO3 42 H ABG O2 Saturation 93 ABG Base Excess 18 H VBG pH 7.46 7.49 VBG pCO2 43 41 VBG pO2 98 H 39 D VBG Base Excess 6 H 7 H 06/25/24 06/26/24 06/27/24 05:04 12:08 04:54 ABG pH 7.47 H 7.48 H ABG pCO2 43 45 ABG pO2 60 L 41 L* ABG HCO3 31 H 34 H ABG O2 Saturation 92 77 L ABG Base Excess 6 H 9 H VBG pH 7.43 VBG pCO2 47 VBG pO2 35 VBG Base Excess 6 H 06/27/24 06/28/24 06/28/24 06:23 04:27 13:19 ABG pH 7.47 H 7.55 H ABG pCO2 46 41 ABG pO2 157 H D 78 L D ABG HCO3 34 H 36 H ABG O2 Saturation 100 H 98 ABG Base Excess 9 H 13 H VBG pH 7.56 VBG pCO2 41 VBG pO2 41 VBG Base Excess 13 H 06/29/24 07/01/24 07/02/24 15:15 06:59 05:03 ABG pH 7.39 7.55 H D ABG pCO2 67 H 41 D ABG pO2 80 L 99 ABG HCO3 41 H 36 H ABG O2 Saturation 95 99 H ABG Base Excess 13 H 12 H VBG pH 7.61 VBG pCO2 40 VBG pO2 76 H D VBG Base Excess 18 H 07/04/24 07:54 ABG pH 7.50 H ABG pCO2 40 ABG pO2 70 L D ABG HCO3 31 H ABG O2 Saturation 96 ABG Base Excess 8 H VBG pH VBG pCO2 VBG pO2 VBG Base Excess Assessment & Plan A&P Narrative # Failure to thrive Plan Consent will be obtained from the appropriate authorities for placement of a PEG tube insertion under intravenous moderate sedation via fiberoptic esophageal gastroduodenoscopy Will follow the patient Other medical problems include # Acute hypoxic respiratory failure requiring endotracheal intubation and mechanical ventilation # Altered mental status # Schizophrenia # Clinically blind Thank you very much for the opportunity to participate in the care of this patient Time Spent With Patient Time: Total time spent is greater than 50% in coordination of care (as documented) at patient's floor/unit and/or counseling patient: Procedures Arterial Line Size (Gauge): 20
[2024-07-04] MEDS: MORPHINE SULF INJ 10 MG/ML VIAL 2 MG IVP (19:14)
[2024-07-04] MEDS: ceFAZolin/D5W 2 GM IV 2 GM/100 ML BAG IV (20:24)
[2024-07-04] MEDS: ATORVASTATIN CALCIUM 20 MG TABLET 40 MG PO (21:24)
[2024-07-05] VITALS (40 sets, daily range): BP systolic 67–119; BP diastolic 42–85; PULSE 55–96; RESP 8–35; TEMP 36.7–37.9; O2SAT 92–100; BMI 12.5
[2024-07-05 04:18] LABS: Base Excess 9 (-3-3); HCO3 34 mEq/L (20-26); Inspired Oxygen, FIO2 50 %; O2 Saturation 94 % (91-98); PCO2 45 mmHg (32.0-48.0); PO2 63 mmHg (83-108); pH, Arterial 7.49 (7.35-7.45)
[2024-07-05 04:31] LABS: Allen Test Performed/OK; Puncture Site Right Radial
[2024-07-05] MEDS: MIDODRINE 5 MG TABLET PO ×3 (05:32→21:03)
[2024-07-05 06:19] LABS: Basophils % (Auto) 0 % (0-2.5); Eosinophils % (Auto) 0 % (0-10); Monocytes # (Auto) 0.3 Thou/mm3 (0.0-0.8); Nucleated Red Blood Cell % 0 /100 WBC (0)
[2024-07-05 06:20] LABS: Hematocrit 23.8 % (36.0-46.0); Immature Granulocytes % (Auto) 1 % (0-0); Immature Granulocytes Auto 0.08 Thou/mm3 (0.00-0.00); Lymphocytes # (Auto) 0.8 Thou/mm3 (1.0-4.8); Lymphocytes % (Auto) 7 % (10-50); Mean Corpuscular HGB Conc 31.9 g/dl (31.0-37.0); Mean Corpuscular Hemoglobin 33.2 pg (25.0-35.0); Mean Corpuscular Volume 104 fL (80-100); Monocytes % (Auto) 3 % (0-12); Neutrophils # (Auto) 10.5 Thou/mm3 (1.8-7.7); Neutrophils % (Auto) 90 % (37-80); Platelet Count 206 Thou/mm3 (140-440); RDW Standard Deviation 67.1 fL (36.4-46.3); Red Blood Count 2.29 Miln/mm3 (4.00-5.20); White Blood Count 11.7 Thou/mm3 (3.6-11.0)
[2024-07-05 06:23] LABS: Hemoglobin 7.6 g/dL (12.0-16.0)
[2024-07-05 06:55] LABS: Albumin, Serum 2.8 gm/dL (3.5-5.0); Albumin/Globulin Ratio 1.1 (1.2-2.2); Alkaline Phosphatase 97 U/L (46-116); Anion Gap 8 (7-16); Aspartate Amino Transferase 23 U/L (0-34); BUN/Creatinine Ratio 20 Ratio (12-20); Bilirubin,Total 0.3 mg/dL (0.3-1.2); Blood Urea Nitrogen 10 mg/dL (9-23); Calcium 7.7 mg/dL (8.3-10.6); Calcium (Corrected) 8.7 mg/dL (8.5-10.1); Carbon Dioxide 30.6 mMol/L (20.0-31.0); Chloride 103 mMol/L (98-107); Creatinine (Component) 0.5 mg/dL (0.6-1.3); Estimated Creatinine Clearance 38.7 mL/min (>60); Globulin 2.6 gm/dL (2.3-3.5); Glucose 99 mg/dL (74-106); Osmolality,Calculated 282 (275-295); Potassium 2.9 mMol/L (3.4-5.1); Sodium 142 mMol/L (136-145); Total Protein 5.4 gm/dL (5.7-8.2); eGFR > 60 See Note
[2024-07-05 06:57] LABS: Alanine Aminotransferase < 7 U/L (10-49)
[2024-07-05] MEDS: SODIUM CHLORIDE RT SOL 0.9% 3 ML NEBU INH ×3 (07:17→22:12)
[2024-07-05] MEDS: ALBUTEROL RT 2.5 MG/0.5 ML NEBU INH ×3 (07:17→22:12)
[2024-07-05] MEDS: CALCIUM CARBONATE 600 MG TABLET NG (08:34)
[2024-07-05] MEDS: Ferrous Sulfate 300 MG/5 ML UDC NG (08:34)
[2024-07-05] MEDS: FLUDROCORTISONE ACETATE 0.1 MG TABLET PO (08:34)
[2024-07-05] MEDS: MULTIVITAMIN 15 ML UDC NG (08:34)
[2024-07-05] MEDS: POTASSIUM CHLORIDE 10% 20 MEQ/15 ML UDC 40 MEQ GT (08:34)
[2024-07-05] MEDS: SERTRALINE HCL 25 MG TABLET 100 MG NG (08:34)
[2024-07-05] MEDS: NAPH,KPH MBDB 1 PACKET (1.5 GM) PO ×2 (08:34→21:04)
[2024-07-05] MEDS: ASPIRIN 81 MG CHEW PO (08:34)
[2024-07-05] MEDS: PANTOPRAZOLE INJ 40 MG VIAL IVP (08:35)
[2024-07-05] MEDS: ceFAZolin/D5W 2 GM IV 2 GM/100 ML BAG IV ×2 (08:35→21:03)
[2024-07-05] MEDS: SIMETHICONE 40 MG/0.6 ML ORAL SYRINGE GT ×2 (08:36→21:04)
[2024-07-05] MEDS: ENOXAPARIN SOD INJ 30 MG/0.3 ML SYRINGE SC (09:53)
[2024-07-05] MEDS: RINGERS LACTATED 1000 ML 500 ML 100 ML IV (09:59)
[2024-07-05] MEDS: INSULIN LISPRO (AdmeLOG) 1 UNIT/0.01 ML UNIT SC ×2 (11:57→17:42)
--- NOTE | 2024-07-05 13:27 | ESPR_ITS ---
<Statement entered by Janett Manzano DO - 07/05/24 21:43> Senior attestation: Patient was examined and case was reviewed with team including attending physician. Note reviewed, I agree with most of its contents and agree with the patient's care. No acute overnight events reported. Potassium levels 2.9 today, possibly from fludrocortisone dose, will decrease fludrocortisone dose again to 0.05 mg daily starting tomorrow, potassium repleted today. Patient remained on blow-by oxygenation 10L today, was transitioned back to ventilation with pressure support settings to provide rest for patient. Will continue cefazolin 2g BID for a 14 day total course, will be completed on 07/13/2024. Have contacted social service team regarding possible SNF placement, SNF placement may be difficult if patient does not have closed tracheostomy, social service team suggests possible sub-acute or LTAC care. Janett Manzano DO PGY-3 Documentation for date of: 07/05/24 Subjective Subjective Interval history: 54 Y/O F with PMHx significant for Downs Syndrome, Schizophrenia,blindness, IBS, presents with chief complaint of AMS, last known normal 9 pm last night. Patient in unable to provide history, history taken from caregiver at bedside. Patient has had cough for about five days, noted sore throat. Patient has had diarrhea for 3 days, which is not uncommon for patient due to IBS. Patient was last seen at 9 pm last night. This morning patient was found unresponsive in her bed by caregiver. Patient is brought to ED, patient found to have low GCS, hypoxia with O2 sat 60% on nonrebreather, blood pressure 84 over palp. Patient was started on pressors, intubated. Patient had CODE BLUE, with 1 dose of epi before ROSC. Patient ventilated, started on sedation with propofol. Patient given 7 to 50 mL normal saline bolus and Rocephin in the ED. Blood urine and sputum cultures taken. 06/24/2024: The patient was examined and evaluated at the bedside this morning. The patient seemed more alert today. Patient was on pressor support with Levophed 0.08, vasopressin 0.03 and dopamine 10, breathing spontaneously on mechanical ventilation with pressure support. White count trended down to 17.4, hemoglobin 7.8, sodium stable at 124, potassium 3.4, calcium 8.3, magnesium 1.7 and we repleted magnesium 2 g IV, started on calcium carbonate 600 Mg daily, blood sugar 293, started the patient on SSI sensitive scale. 40 mEq of KCl was repleted. The phosphorus was 2.5, and we increased the dose of Neutra-Phos to 2 packs twice daily. The patient was successfully extubated to oxy mask. Discussion regarding the decision maker was done by me with patient's sister Annamarie Wilson in the presence of RN She Julian. Patient's Sister Annamarie Wilson verbally stated that Ayala Putnam, who has been the strategy associate of the patient would be the decision maker for the patient for medical management and CODE STATUS changes. 06/25/2024: The patient was examined and evaluated at the bedside this morning. Overnight, the patient was desaturating in 80s, and was started on NC, transitioned to oxy mask, transition to BiPAP and finally was reintubated. Chest x-ray was significant for left lower lung pneumonia, likely secondary to aspiration pneumonia as patient was recently extubated, and given her underlying severe malnutrition was started on tube feed. Patient is on fentanyl drip to maintain RASS of 0, and on pressor support with Levophed, vasopressin and dopamine. She continues to be in sinus bradycardia. White count elevated to 13.5 in the setting of aspiration pneumonia, sodium continues to be 125, and she was given 500 cc of IV normal saline bolus, potassium 3.4 and was given 40 mEq of KCl. 06/26/2024: The patient was examined and evaluated at the bedside this morning. Overnight, patient did not had any acute overnight events. White count mildly trended down to 31.2, cultures pending, we discontinued linezolid and we will continue with meropenem at this point. Patient tapered down on dopamine to 7.5, and other pressor support discontinued. We considered for MAP to be stable if greater than 50, as demonstrated by normal lactic acid level at MAP greater than 50. The plan is to extubate the patient tomorrow morning. 06/27/2024: The patient was examined and evaluated at the bedside this morning again. Overnight no acute events. White count trended down to 21.5, ABG revealed pH 7.47, pCO2 46, and bicarb 34. Potassium was 2.8, and was repleted. Blood sugar this morning was 278 with mild transaminitis. We stopped dopamine drip, and the MAP goal is greater than 50. We will try for SBT tomorrow morning. Goals of care discussion was done, and Ayala Putnam who is the decision-maker recommended to proceed with tracheostomy tube if required. 06/28/2024: Patient seen and examined at bedside. Overnight patient became agitated with worsening sinus tachycardia, received 0.5 mg Ativan x 1, after which patient became hypotensive requiring Levophed to be resumed. Levophed titrate down to 0.03, held there to maintain MAP while patient is extubated. On exam patient is more active, opening eyes and moving all extremities. Patient tolerated pressure support well, with successfully extubated without complications. Patient strict n.p.o. VBG showed pH 7.56, pCO2 41, pO2 41. Lactate 2.0. Phosphorus 2.1, received 15 mmol potassium phosphate. Central line removed, Levophed transferred to peripheral IV. 06/29/2024: Patient seen and examined at bedside. Patient was reportedly very active overnight. In the morning, patient became acutely hypoxic, required BVM to maintain oxygen saturations. Chest x-ray showed consolidation of left lung base indicating atelectasis, possibly due to aspiration versus mucous plugging. Patient was repositioned on the right side and placed on high flow nasal cannula with immediate improvement in oxygenation. Will continue to titrate FiO2 as tolerated by patient. Levophed was discontinued. Repeat blood cultures drawn today for MSSA bacteremia. 06/30/2024: Patient seen and examined at bedside. In the morning patient had episode of desaturation down to low 80s. Patient was repositioned and sat up, high flow nasal cannula increased to 100% FiO2 at 40 L/min. Oxygen saturation improved. Goals of care conversation held with strategy associate, explained that patient required intubation patient required tracheostomy and PEG tube placement for long-term rehabilitation. Math And Physics Instructor fully understands and wishes to proceed with full and aggressive treatment. Plan to have patient sit up in chair and attempt to maintain O2 saturations, if needed will reintubate patient and consult general surgery for tracheostomy and PEG tube placement. Started patient on D10 NS for nutritional support. 07/01/2024: Patient seen and examined at bedside. In the radiographer technologist patient had severe desaturation, was manually bagged for several hours but continued to have poor saturations and developed cyanosis. Patient was reintubated due to acute hypoxic respiratory failure. As per previous conversations with strategy associate, general surgery consult placed for tracheostomy and GI consult placed for PEG tube placement. Tube feeds initiated. Patient not sedated, compliant with vent. 07/02/2024: Patient seen and examined at bedside. Patient developed fever of 100.6 in radiographer technologist. PEG tube placement was postponed, and tube feeds resumed. Antibiotics broadened to zosyn. Sputum, blood, and urine cultures collected. CXR ordered. Patient off sedation, remains compliant with vent. Continuing breathing treatments and CPT. 07/03/2024: Patient seen and examined at bedside. Patient has been afebrile overnight. Patient had tracheostomy placement performed today, procedure completed without incident. NG tube placed to allow medication administration. Discussed changing patient's tube feeds to something easier to absorb with dietary, recommendations placed. Tube feeds held pending PEG tube placement later today. Send out test for stool osmolarity sent to [facility] for malabsorption. 07/04/23: Patient seen and examined at bedside. No acute events overnight. Today she is awake but unable to follow commands. Patient is status post tracheostomy and PEG tube placement. Dietary team was consulted and patient was started on Vital 1.2 at 10 mL/h. Advance 10 mL every 8 hours to goal rate of 35 mL/h. No bleeding or drainage noticed from tracheostomy site. Potassium had down trended to 2.7 today. May be in setting of fludrocortisone for treatment of adrenal insufficiency. Will change dose from 0.2 mg to 0.1 mg daily and monitor daily potassium and BP. She was repleted with 40+40 mEq today via GT. Patient has history of malabsorption indicated via immediate episodes of diarrhea after any food intake. Stool osmolarity sent for possible etiology. Vitals significant for low blood pressure 80/65, heart rate 68, respiratory rate 20, no fevers. WBC 11.2, macrocytic anemia MCV 102 hemoglobin 7, platelets 189. Sodium 142, hypokalemia 2.7, creatinine 0.4. Today ABG revealing metabolic alkalosis pH 7.5, pCO2 40, pO2 70, bicarb 31, FiO2 21, PF ratio 333. Continue close monitoring of potassium, sodium, blood pressure. Stop Zosyn and continue cefazolin 2 g TID for treatment of MSSA bacteremia. 07/05/23: Patient seen and examined at bedside. No acute events overnight. Per nursing, patient has had 1 bowel movement this morning, loose consistency. Patient is awake and gives mumbled, one-word responses when speaking to caregiver or family. No bleeding or drainage noticed from tracheostomy/PEG site. Patient was started on PEG tube feedings yesterday. Has reached goal feeding of 35 mL/h today. Potassium dropped again to 2.9 today. Repleted with 40 mEq. Due to continued metabolic alkalosis and low potassium, fludrocortisone further decreased from 0.1 mg daily to 0.05 mg daily. Recheck potassium. Labs significant for WBC 11.7, hemoglobin stable 7.6, sodium 142, downtrended potassium 2.9, creatinine 0.5. Pressure remains on soft side 84/56. pH on ABG 7.49, pCO2 45, FiO2 50. Patient is now on blow by with 10L oxygen. Will continue with only nocturnal mechanical ventilation. Stool osmolarity still pending. Continue with cefazolin 2 g twice daily for treatment of MSSA bacteremia. Complete course by July 13 which is 14 days from the first negative blood culture. Case was discussed with social service liaison team. SNF may not accept patient with open trach on blow by. May consider sub-acute care in 2-3 days. Exam Vital Signs Temp Pulse Resp BP Pulse Ox O2 Del Method O2 Flow Rate 99.1 F 79 12 91/56 L 93 L Blow-by 10 07/05/24 12:00 07/05/24 12:07/05/24 12:07/05/24 12:07/05/24 12:07/05/24 12:07/05/24 12:00 FiO2 50 07/05/24 11:02 Narrative Exam Gen: Extremely cachectic, makes continuous orofacial movements, licking lips, non verbal HEENT: Dry mucous membranes. Left eye heavily scarred, right eye glassy. Scarring around nares, tracheostomy in place CVS: normal S1 and S2. No M/R/G. Resp: No rhonchi, rales, crackles or wheezing. Diminished lung sounds, coarse. Abd: soft, non-tender, non-distended, PEG tube no active leaking MSK: No edema. Multiple old scars/wounds on all extremities, patient has history of self-inflicted injuries, picking at skin. Significant bruises at left/right inguinal folds. Neuro: unable to evaluate, does not seem to track movement Objective Labs 07/06/24 05:39 07/06/24 05:39 Labs: Laboratory Results - last 24 hr 07/04/24 07/05/24 07/05/24 15:06 04:02 04:53 WBC 11.7 H RBC 2.29 L Hgb 7.6 L Hct 23.8 L MCV 104 H MCH 33.2 MCHC 31.9 RDW Std Deviation 67.1 H Plt Count 206 Neut % (Auto) 90 H Lymph % (Auto) 7 L Amador % (Auto) 3 Eos % (Auto) 0 Baso % (Auto) 0 Neut # (Auto) 10.5 H Lymph # (Auto) 0.8 L Amador # (Auto) 0.3 Eos # (Auto) 0.0 Baso # (Auto) 0.0 Immature Gran # (Auto) 0.08 H Absolute Nucleated RBC 0.00 Immature Gran % 1 H Nucleated RBC % 0 Puncture Site Right Radial ABG pH 7.49 H ABG pCO2 45 ABG pO2 63 L ABG HCO3 34 H ABG O2 Saturation 94 ABG Base Excess 9 H FiO2 50 Sodium 143 142 Potassium 4.2 D 2.9 L D Chloride 107 103 Carbon Dioxide 30.3 30.6 Anion Gap 6 L 8 BUN 6 L 10 Creatinine 0.5 L 0.5 L Estim Creat Clear Calc 43.0 L 38.7 L eGFR > 60 > 60 BUN/Creatinine Ratio 12 20 Glucose 93 D 99 Calculated Osmolality 282 282 Calcium 8.0 L 7.7 L Corrected Calcium 8.7 Total Bilirubin 0.3 AST 23 ALT < 7 L Alkaline Phosphatase 97 Total Protein 5.4 L Albumin 2.8 L Globulin 2.6 Albumin/Globulin Ratio 1.1 L ABG Interpretation ABG results: 06/15/24 06/15/24 06/15/24 11:06 14:05 17:00 ABG pH 7.23 L 7.33 L D 7.34 L ABG pCO2 69 H 56 H D 57 H ABG pO2 153 H 67 L D 65 L ABG HCO3 29 H 29 H 30 H ABG O2 Saturation 99 H 92 91 ABG Base Excess 0 3 4 H VBG pH VBG pCO2 VBG pO2 VBG Base Excess 06/16/24 06/17/24 06/18/24 04:04 04:36 04:04 ABG pH 7.35 7.42 7.53 H D ABG pCO2 57 H 54 H 57 H ABG pO2 58 L* 77 L 73 L ABG HCO3 31 H 35 H 47 H ABG O2 Saturation 88 L 96 96 ABG Base Excess 5 H 9 H 22 H VBG pH VBG pCO2 VBG pO2 VBG Base Excess 06/19/24 06/22/24 06/23/24 04:12 17:30 09:55 ABG pH 7.54 H ABG pCO2 50 H ABG pO2 61 L ABG HCO3 42 H ABG O2 Saturation 93 ABG Base Excess 18 H VBG pH 7.46 7.49 VBG pCO2 43 41 VBG pO2 98 H 39 D VBG Base Excess 6 H 7 H 06/25/24 06/26/24 06/27/24 05:04 12:08 04:54 ABG pH 7.47 H 7.48 H ABG pCO2 43 45 ABG pO2 60 L 41 L* ABG HCO3 31 H 34 H ABG O2 Saturation 92 77 L ABG Base Excess 6 H 9 H VBG pH 7.43 VBG pCO2 47 VBG pO2 35 VBG Base Excess 6 H 06/27/24 06/28/24 06/28/24 06:23 04:27 13:19 ABG pH 7.47 H 7.55 H ABG pCO2 46 41 ABG pO2 157 H D 78 L D ABG HCO3 34 H 36 H ABG O2 Saturation 100 H 98 ABG Base Excess 9 H 13 H VBG pH 7.56 VBG pCO2 41 VBG pO2 41 VBG Base Excess 13 H 06/29/24 07/01/24 07/02/24 15:15 06:59 05:03 ABG pH 7.39 7.55 H D ABG pCO2 67 H 41 D ABG pO2 80 L 99 ABG HCO3 41 H 36 H ABG O2 Saturation 95 99 H ABG Base Excess 13 H 12 H VBG pH 7.61 VBG pCO2 40 VBG pO2 76 H D VBG Base Excess 18 H 07/04/24 07/05/24 07:54 04:02 ABG pH 7.50 H 7.49 H ABG pCO2 40 45 ABG pO2 70 L D 63 L ABG HCO3 31 H 34 H ABG O2 Saturation 96 94 ABG Base Excess 8 H 9 H VBG pH VBG pCO2 VBG pO2 VBG Base Excess Quality Measures Quality Measures VTE prophylaxis Assessment & Plan Assessment Current Active Medications: Generic Name Dose Route Start Last Admin Trade Name Freq PRN Reason Stop Dose Admin Acetaminophen 650 mg 06/15/24 13:50 Acetaminophen Supp 650 Mg Supp DE 07/15/24 13:49 Q4HR PRN PAIN SCALE 1-3 (mild Acetaminophen 650 mg 06/19/24 07:27 07/02/24 04:39 Acetaminophen Noreen 325 Mg/10 Ml Udc NG 07/19/24 07:26 650 mg Q4HR PRN Administration Pain Or Fever > 100.4 Protocol Al Hydrox/Mg Hydrox/Simethicone 30 ml 06/15/24 13:50 Mg Hyd/Al Hyd/[place] (Maalox Reg) Susp 30 Ml Udc NG 07/15/24 13:49 Q4HR PRN Heartburn or Upset Stomach Albuterol 2.5 mg 07/04/24 15:00 07/05/24 07:17 Albuterol Rt 2.5 Mg/0.5 Ml Nebu INH 08/03/24 14:59 2.5 mg Q8HRRT LIZ Administration Aspirin 81 mg 06/23/24 09:00 07/05/24 08:34 Aspirin 81 Mg Chew PO 07/23/24 08:59 81 mg QDAY LIZ Administration Atorvastatin Calcium 40 mg 06/21/24 21:00 07/04/24 21:24 Atorvastatin Calcium 20 Mg Tablet PO 07/21/24 20:59 40 mg HS LIZ Administration Calcium Carbonate 600 mg 06/23/24 09:00 07/05/24 08:34 Calcium Carbonate 600 Mg Tablet NG 07/23/24 08:59 600 mg QDAY LIZ Administration Dextrose 25 ml 06/24/24 13:46 Dextrose 50%-Water Inj 50 Ml Syringe IV 07/24/24 13:45 Q15MIN PRN BG 50-70 responsive npo pt Dextrose 50 ml 06/24/24 13:46 07/04/24 05:17 Dextrose 50%-Water Inj 50 Ml Syringe IV 07/24/24 13:45 50 ml Q15MIN PRN Administration BG <50 OR BG <70 & pt unresponsive Enoxaparin Sodium 30 mg 07/05/24 10:00 07/05/24 09:53 Enoxaparin Sod Inj 30 Mg/0.3 Ml Syringe SC 07/19/24 09:59 30 mg QDAY LIZ Administration Ferrous Sulfate 300 mg 06/25/24 09:00 07/05/24 08:34 Ferrous Sulfate 300 Mg/5 Ml Udc NG 07/25/24 08:59 300 mg QDAY LIZ Administration Fludrocortisone Acetate 0.05 mg 07/06/24 09:00 Fludrocortisone Acetate 0.1 Mg Tablet PO 08/05/24 08:59 QDAY LIZ Glucagon 1 mg 06/24/24 13:46 Glucagon Inj 1 Mg Vial IM Q15MIN PRN BG <70, and no IV access Cefazolin Sodium 2 gm in 100 mls @ 100 mls/hr 07/01/24 21:00 07/05/24 10:13 Ancef 2gm Ivpb IV 07/08/24 20:59 Infused Q12HR LIZ Infusion Lactated Ringer's 500 mls @ 100 mls/hr 07/05/24 09:53 07/05/24 09:59 Lactated Ringers IV 07/05/24 14:52 100 mls/hr .Q5H ONE Administration Insulin Human Lispro 0 unit 06/24/24 18:00 07/05/24 11:57 Insulin Lispro (Admelog) 1 Unit/0.01 Ml Unit SC 07/24/24 17:59 1 unit Q6HR LIZ Administration Protocol Magnesium Hydroxide 30 ml 06/15/24 13:50 Milk Of Magnesia Susp 30 Ml Udc NG 07/15/24 13:49 QDAY PRN CONSTIPATION Midodrine 5 mg 06/23/24 14:00 07/05/24 05:32 Midodrine 5 Mg Tablet PO 07/23/24 13:59 5 mg TID LIZ Administration Morphine Sulfate 2 mg 07/03/24 15:19 07/04/24 19:14 Morphine Sulf Inj 10 Mg/Ml Vial IVP 07/08/24 15:18 2 mg Q4HR PRN Administration Pain 4-10 or distress Multivitamins/Minerals 15 ml 06/19/24 15:15 07/05/24 08:34 Multivitamin 15 Ml Udc NG 07/19/24 15:14 15 ml QDAY LIZ Administration Pantoprazole Sodium 40 mg 06/16/24 09:00 07/05/24 08:35 Pantoprazole Inj 40 Mg Vial IVP 07/16/24 08:59 40 mg QDAY LIZ Administration Pharmacy Consult 1 each 06/15/24 18:27 Pharmacy To Consult Pneumovacc XX 07/15/24 18:26 PRN PRN CONSULT Potassium Phos/Sodium Phos 1 packet 06/28/24 11:00 07/05/24 08:34 [facility] 1 Packet (1.5 Gm) PO 07/28/24 10:59 1 packet BID LIZ Administration Sertraline HCl 100 mg 06/23/24 15:30 07/05/24 08:34 Sertraline Hcl 25 Mg Tablet NG 07/23/24 15:29 100 mg QDAY LIZ Administration Simethicone 40 mg 07/02/24 09:30 07/05/24 08:36 Simethicone 40 Mg/0.6 Ml Oral Syringe GT 08/01/24 09:29 40 mg BID LIZ Administration Sodium Chloride 3 ml 07/04/24 10:05 07/05/24 07:17 Sodium Chloride Rt Noreen 0.9% 3 Ml Nebu INH 08/03/24 10:04 3 ml PRN PRN Administration SOLN Plan 54 Y/O F with PMHx significant for Downs Syndrome, Schizophrenia,blindness, IBS, presents with chief complaint of AMS, last known normal 9 pm last night, admitted to ICU for septic shock requiring pressors and acute hypoxic respiratory failure requiring intubation. Neuro: #Acute encephalopathy-resolved Multifactorial: hypoxia, S/p shock, electrolytes imbalance Low density areas in both basal ganglia seen on head CT -Neurologist Dr. Jaeger was consulted. -EEG completed-interpreted as abnormal with diffuse slowing suggestive of a diffuse encephalopathy of hypoxic origin per neurology. #Hx Schizophrenia #Hx Depression -Held patient's home medication risperidone 4mg BID, Ziprasidone 60mg BID, and zolpidem 10mg PO HS. -continue with Sertraline 100mg daily Cardio: #Hypotension Patient was treated for septic shock with vasopressors. MAP improved but patient's BP remains low. MAP is above 65. Continue BP support with midodrine. -continue midodrine 5 mg TID Pulm: #AHRF 2/2 #MSSA pneumonia Patient has history of Down syndrome, risk for aspiration pneumonia. Bacterial and viral pneumonia both possible. Influenza panel negative. MRSA screen negative. Sedated and mechanically ventilated Extubated on 06/24/24, but reintubated on 06/25 Patient extubated for second time, still severely hypoxic, requiring high flow nasal cannula. Patient desatted despite several hours of manual bagging, required reintubation. Tracheostomy performed 07/03/2024 Sputum culture positive for MSSA pneumonia on 06/25 Plan: -continue cefazolin 2 g 3 times daily #s/p tracheostomy Unable to successfully extubate. Underwent tracheostomy on 07/03 for long-term mechanical ventilation. On 10L oxygen blow by. Plan: -nocturnal ventilation set to previous settings PS mode: PS 5.0, PEEP 8.0, FiO2 50 GI: #Severe protein malnutrition #s/p PEG tube placement Patient BMI 14.9. Patient unable to provide history, per caregiver patient has good oral intake most times, has been malnourished for years due to chronic diarrhea, has not had significant weight loss recently. Patient has very little muscle mass, temporal wasting, sunken eyes. GI was consulted and patient underwent PEG tube placement on 07/03. Dietary team was consulted and patient to be started on Vital 1.2 at 10 mL/h. Advance 10 mL every 8 hours to goal rate of 35 mL/h. Plan: -tube feeding goal 35 ml/h -daily labs -monitoring/repleting of potassium, phosphorous, magnesium #Hx IBS Patient history of IBS. Patient had diarrhea for 3 days prior to admission, not unusual for patient. Per caregiver, patient also experiences diarrhea after any food intake. Possible underlying malabsorption (celiac vs pancreatic insufficiency vs lactose deficiency) -Monitor bowel movements -stool osmolarity test pending -Treat metabolic abnormalities as needed Renal: #Contraction alkalosis Possibly due to refeeding syndrome, in setting of diarrhea vs hydrocortisone use. ABG revealing metabolic alkalosis pH 7.49, pCO2 45, pO2 63, bicarb 34, FiO2 50, PF ratio 126. Plan: -decrease fludrocortisone (refer to Endo) -Monitor daily daily potassium and sodium -Continue PEG feeds Endo: #Adrenal insufficiency Suspect due to chronic malnutrition. Patient arrived with hypotension, hypernatremia. Patient has been hypokalemic despite repletion and bradycardic. Clinical improvement with hydrocortisone followed by worsening when dosage reduced. Patient continues to present with hypokalemia even with yesterday's dose reduction. Continue to wean from 0.1 mg to 0.05 mg daily. Plan: -Decrease fludrocortisone from 0.1 mg to 0.05 mg daily -monitor sodium and potassium #Hyperglycemia-resolved Patient had mild hyperglycemia that was uptrending. No history of diabetes. Likely due to steroid treatment. -Started on SSI lispro q6h -Monitor Heme: #Hematomas, resolved Hematomas in bilateral inguinal folds as complications of attempted femoral arterial line placement. Hematomas have resolved, leaving bruises and inguinal folds. -Monitor #Macrocytic anemia Patient hemoglobin 9.2, MCV 114. No previous labs to compare to. No obvious signs of acute bleeding. On 06/23: Hb 6.9, transfused 1 unit PRBC Folate and B12 not depleted. -Monitor -today Hb 7.2, MCV 102 ID: #[id number] bacteremia Blood cultures positive for MSSA bacteremia, source likely being MSSA pneumonia. Central line was removed. Blood cultures negative 06/29. New onset fever on 07/02/24, repeat blood cultures taken. Repeat blood cultures negative Plan: -continue cefazolin for total of 14 days from time of last negative blood culture. (Finish course Jul 13) #Aspiration Pneumonia #MSSA Pneumonia Patient in acute hypoxic respiratory failure, chest x-ray with left-sided consolidations. -On cefazolin 2 g 3 times daily Health maintenance: Lines: RIJ/PIV DVT prophylaxis: Lovenox 30 daily G.I prophylaxis: Pantoprazole Code: Full code Plan of care discussed with attending Dr. Ashley and senior Dr. Manzano. Rand Pisano, PGY1 Attending Provider Attestation/Addendum Patient seen and examined with above resident, Rand Pisano MD. I agree with the findings, assessment, and plan of care as documented except for any differences below. Patient doing well after extended period of mechanical ventilation on blow-by. Patient will be returned back to his mechanical ventilation overnight for adequate rest. Continue slow weaning over the course of the coming weeks. Patient with significant hypokalemia and contraction alkalosis likely in the setting of fludrocortisone use. Will continue to wean down. Electrolyte replacement aggressively. Tube feedings restarted yesterday a component of refeeding syndrome may also be occurring. Continue to monitor magnesium closely as well. Patient remains off sedation. She wakes up and does track response by mouthing words to unable to be examined at this point due to tracheostomy tube. Patient's family will be updated at bedside when they become available. Patient remains without significant positive symptoms so we continue to hold her risperidone which she remains on sertraline. Will need to start working with physical therapy. Plan to begin working on placement as she continues to improve. Complete course of antibiotic therapy for MSSA bacteremia from previously negative culture. Remains on cefazolin only now. Total critical care time: I personally spent 20 minutes for review of physiologic parameters, directing plan of care throughout the day, and coordination of care with other specialist. This is exclusive of time spent teaching housestaff or performing any separate billable procedures. Patient continues require critical care services for acute hypoxic respiratory failure secondary to aspiration pneumonia complicated by MSSA pneumonia and bacteremia and severe protein calorie malnutrition limiting her ability to successfully wean from complete support. Patient continues to be at significant risk for increasing morbidity and mortality warranting ongoing care and monitoring already available in the intensive care unit.
--- NOTE | 2024-07-05 16:42 | PC.RT ---
1620: Increased fio2 to 50% due to spo2 sustaining at 88%. RN Mary adams.
--- NOTE | 2024-07-05 16:59 | PD.IMPROG ---
Documentation for date of: 07/05/24 Subjective Subjective Interval history: No drainage at the PEG site On vital enteral hyperalimentation Exam Vital Signs Temp Pulse Resp BP Pulse Ox O2 Del Method O2 Flow Rate 99.1 F 96 18 108/68 95 Blow-by 8 07/05/24 12:00 07/05/24 15:55 07/05/24 15:16 07/05/24 15:55 07/05/24 15:55 07/05/24 12:00 07/05/24 15:16 FiO2 30 07/05/24 16:00 Objective Labs 07/05/24 04:53 07/05/24 04:53 Labs: Laboratory Results - last 24 hr 07/05/24 07/05/24 04:02 04:53 WBC 11.7 H RBC 2.29 L Hgb 7.6 L Hct 23.8 L MCV 104 H MCH 33.2 MCHC 31.9 RDW Std Deviation 67.1 H Plt Count 206 Neut % (Auto) 90 H Lymph % (Auto) 7 L [place] % (Auto) 3 Eos % (Auto) 0 Baso % (Auto) 0 Neut # (Auto) 10.5 H Lymph # (Auto) 0.8 L [place] # (Auto) 0.3 Eos # (Auto) 0.0 Baso # (Auto) 0.0 Immature Gran # (Auto) 0.08 H Absolute Nucleated RBC 0.00 Immature Gran % 1 H Nucleated RBC % 0 Puncture Site Right Radial ABG pH 7.49 H ABG pCO2 45 ABG pO2 63 L ABG HCO3 34 H ABG O2 Saturation 94 ABG Base Excess 9 H FiO2 50 Sodium 142 Potassium 2.9 L D Chloride 103 Carbon Dioxide 30.6 Anion Gap 8 BUN 10 Creatinine 0.5 L Estim Creat Clear Calc 38.7 L eGFR > 60 BUN/Creatinine Ratio 20 Glucose 99 Calculated Osmolality 282 Calcium 7.7 L Corrected Calcium 8.7 Total Bilirubin 0.3 AST 23 ALT < 7 L Alkaline Phosphatase 97 Total Protein 5.4 L Albumin 2.8 L Globulin 2.6 Albumin/Globulin Ratio 1.1 L Impressions Impression: # Failure to thrive # Status postplacement of a PEG tube # Enteral hyperalimentation with vital Continue current management ABG Interpretation ABG results: 06/15/24 06/15/24 06/15/24 11:06 14:05 17:00 ABG pH 7.23 L 7.33 L D 7.34 L ABG pCO2 69 H 56 H D 57 H ABG pO2 153 H 67 L D 65 L ABG HCO3 29 H 29 H 30 H ABG O2 Saturation 99 H 92 91 ABG Base Excess 0 3 4 H VBG pH VBG pCO2 VBG pO2 VBG Base Excess 06/16/24 06/17/24 06/18/24 04:04 04:36 04:04 ABG pH 7.35 7.42 7.53 H D ABG pCO2 57 H 54 H 57 H ABG pO2 58 L* 77 L 73 L ABG HCO3 31 H 35 H 47 H ABG O2 Saturation 88 L 96 96 ABG Base Excess 5 H 9 H 22 H VBG pH VBG pCO2 VBG pO2 VBG Base Excess 06/19/24 06/22/24 06/23/24 04:12 17:30 09:55 ABG pH 7.54 H ABG pCO2 50 H ABG pO2 61 L ABG HCO3 42 H ABG O2 Saturation 93 ABG Base Excess 18 H VBG pH 7.46 7.49 VBG pCO2 43 41 VBG pO2 98 H 39 D VBG Base Excess 6 H 7 H 06/25/24 06/26/24 06/27/24 05:04 12:08 04:54 ABG pH 7.47 H 7.48 H ABG pCO2 43 45 ABG pO2 60 L 41 L* ABG HCO3 31 H 34 H ABG O2 Saturation 92 77 L ABG Base Excess 6 H 9 H VBG pH 7.43 VBG pCO2 47 VBG pO2 35 VBG Base Excess 6 H 06/27/24 06/28/24 06/28/24 06:23 04:27 13:19 ABG pH 7.47 H 7.55 H ABG pCO2 46 41 ABG pO2 157 H D 78 L D ABG HCO3 34 H 36 H ABG O2 Saturation 100 H 98 ABG Base Excess 9 H 13 H VBG pH 7.56 VBG pCO2 41 VBG pO2 41 VBG Base Excess 13 H 06/29/24 07/01/24 07/02/24 15:15 06:59 05:03 ABG pH 7.39 7.55 H D ABG pCO2 67 H 41 D ABG pO2 80 L 99 ABG HCO3 41 H 36 H ABG O2 Saturation 95 99 H ABG Base Excess 13 H 12 H VBG pH 7.61 VBG pCO2 40 VBG pO2 76 H D VBG Base Excess 18 H 07/04/24 07/05/24 07:54 04:02 ABG pH 7.50 H 7.49 H ABG pCO2 40 45 ABG pO2 70 L D 63 L ABG HCO3 31 H 34 H ABG O2 Saturation 96 94 ABG Base Excess 8 H 9 H VBG pH VBG pCO2 VBG pO2 VBG Base Excess Assessment & Plan A&P Narrative # Failure to thrive Plan Consent will be obtained from the appropriate authorities for placement of a PEG tube insertion under intravenous moderate sedation via fiberoptic esophageal gastroduodenoscopy Will follow the patient Other medical problems include # Acute hypoxic respiratory failure requiring endotracheal intubation and mechanical ventilation # Altered mental status # Schizophrenia # Clinically blind Thank you very much for the opportunity to participate in the care of this patient Time Spent With Patient Time: Total time spent is greater than 50% in coordination of care (as documented) at patient's floor/unit and/or counseling patient: Procedures Arterial Line Size (Gauge): 20
[2024-07-05] MEDS: ATORVASTATIN CALCIUM 20 MG TABLET 40 MG PO (21:03)
[2024-07-06] VITALS (38 sets, daily range): BP systolic 68–99; BP diastolic 40–62; PULSE 62–82; RESP 10–31; TEMP 36.8–37.4; O2SAT 90–100; BMI 12.9
[2024-07-06] MEDS: INSULIN LISPRO (AdmeLOG) 1 UNIT/0.01 ML UNIT SC ×3 (00:17→18:14)
--- NOTE | 2024-07-06 02:02 | PC.RT ---
four unsuccessful ABG attempts complete. MD/RN aware, VBG ordered.
[2024-07-06 04:35] LABS: Base Excess 9 (-3-3); HCO3 34 mEq/L (20-26); Inspired Oxygen, FIO2 40 %; O2 Saturation 99 % (91-98); PCO2 45 mmHg (32.0-48.0); PO2 108 mmHg (83-108); pH, Arterial 7.49 (7.35-7.45)
[2024-07-06 04:42] LABS: Allen Test Performed/OK; Puncture Site Right Radial
[2024-07-06] MEDS: MIDODRINE 5 MG TABLET PO ×3 (05:02→21:03)
[2024-07-06 06:37] LABS: Basophils % (Auto) 0 % (0-2.5); Eosinophils % (Auto) 0 % (0-10); Hematocrit 23.4 % (36.0-46.0); Immature Granulocytes % (Auto) 1 % (0-0); Immature Granulocytes Auto 0.05 Thou/mm3 (0.00-0.00); Lymphocytes # (Auto) 0.8 Thou/mm3 (1.0-4.8); Lymphocytes % (Auto) 8 % (10-50); Mean Corpuscular HGB Conc 32.1 g/dl (31.0-37.0); Mean Corpuscular Hemoglobin 32.6 pg (25.0-35.0); Mean Corpuscular Volume 102 fL (80-100); Monocytes # (Auto) 0.2 Thou/mm3 (0.0-0.8); Monocytes % (Auto) 2 % (0-12); Neutrophils # (Auto) 9.4 Thou/mm3 (1.8-7.7); Neutrophils % (Auto) 90 % (37-80); Nucleated Red Blood Cell % 0 /100 WBC (0); Platelet Count 228 Thou/mm3 (140-440); RDW Standard Deviation 64.4 fL (36.4-46.3); White Blood Count 10.5 Thou/mm3 (3.6-11.0)
[2024-07-06 06:38] LABS: Hemoglobin 7.5 g/dL (12.0-16.0)
[2024-07-06] MEDS: ALBUTEROL RT 2.5 MG/0.5 ML NEBU INH ×3 (07:05→23:00)
[2024-07-06] MEDS: SODIUM CHLORIDE RT SOL 0.9% 3 ML NEBU INH ×3 (07:05→23:00)
[2024-07-06 07:12] LABS: Alanine Aminotransferase < 7 U/L (10-49); Albumin/Globulin Ratio 1.2 (1.2-2.2); Alkaline Phosphatase 100 U/L (46-116); Anion Gap 7 (7-16); Aspartate Amino Transferase 18 U/L (0-34); BUN/Creatinine Ratio 33 Ratio (12-20); Bilirubin,Total 0.2 mg/dL (0.3-1.2); Blood Urea Nitrogen 13 mg/dL (9-23); Calcium 7.5 mg/dL (8.3-10.6); Calcium (Corrected) 8.3 mg/dL (8.5-10.1); Carbon Dioxide 30.6 mMol/L (20.0-31.0); Chloride 101 mMol/L (98-107); Creatinine (Component) 0.4 mg/dL (0.6-1.3); Estimated Creatinine Clearance 49.8 mL/min (>60); Globulin 2.6 gm/dL (2.3-3.5); Glucose 127 mg/dL (74-106); Osmolality,Calculated 279 (275-295); Sodium 139 mMol/L (136-145); Total Protein 5.6 gm/dL (5.7-8.2); eGFR > 60 See Note
[2024-07-06 07:13] LABS: Potassium 2.4 mMol/L (3.4-5.1)
--- NOTE | 2024-07-06 07:47 | PC.CC ---
Late Entry 07/05/24 Rounding note: Possible downgrade to Tele SNF vs. Subacute.
[2024-07-06] MEDS: POTASSIUM CHLORIDE 10% 20 MEQ/15 ML UDC 40 MEQ GT (07:55)
[2024-07-06] MEDS: ceFAZolin/D5W 2 GM IV 2 GM/100 ML BAG IV ×2 (08:24→20:54)
[2024-07-06] MEDS: SIMETHICONE 40 MG/0.6 ML ORAL SYRINGE GT ×2 (08:24→20:54)
[2024-07-06] MEDS: FLUDROCORTISONE ACETATE 0.1 MG TABLET 0.05 MG PO (08:24)
[2024-07-06] MEDS: ASPIRIN 81 MG CHEW PO (08:24)
[2024-07-06] MEDS: CALCIUM CARBONATE 600 MG TABLET NG (08:24)
[2024-07-06] MEDS: NAPH,KPH MBDB 1 PACKET (1.5 GM) PO ×2 (08:24→20:54)
[2024-07-06] MEDS: MULTIVITAMIN 15 ML UDC NG (08:25)
[2024-07-06] MEDS: Ferrous Sulfate 300 MG/5 ML UDC NG (08:25)
[2024-07-06] MEDS: PANTOPRAZOLE INJ 40 MG VIAL IVP (08:25)
[2024-07-06] MEDS: ENOXAPARIN SOD INJ 30 MG/0.3 ML SYRINGE SC (08:33)
[2024-07-06] MEDS: SERTRALINE HCL 25 MG TABLET 100 MG NG (09:40)
--- NOTE | 2024-07-06 10:32 | PC.CC ---
Rounding note: pt remains in ICU, possible downgrade. Pt will need SNF vs Subacute vs LTAC.
[2024-07-06] MEDS: POTASSIUM CHL 10 mEq IVPB 10 MEQ/100 ML BAG 100 MEQ IV ×4 (10:45→13:56)
[2024-07-06] MEDS: Magnesium Sulfate 2 GM Ivpb 2 GM/50 ML BAG IV (10:46)
[2024-07-06 10:47] LABS: Magnesium 1.3 mg/dL (1.6-2.6)
--- NOTE | 2024-07-06 14:16 | PC.NURSE ---
at 1300 patient up to cardiac chair per Dr. Ashley, as patient can tolerate
--- NOTE | 2024-07-06 14:58 | PC.RT ---
Up to chair with supports in place. Unable to place vest around patient at this time. No distress noted and clear lung sounds throughout.
[2024-07-06 15:44] LABS: Potassium 3.9 mMol/L (3.4-5.1)
--- NOTE | 2024-07-06 16:21 | PC.CC ---
Inquiry uploaded to [employer] [facility]-Inquiry sent to [facility]. Awaiting responses at this time.
--- NOTE | 2024-07-06 16:41 | ESPR_ITS ---
Documentation for date of: 07/06/24 Subjective Subjective Interval history: Vital hyperalimentation rate through the PEG tube at 35 cc an hour which is a maximum rate she started taking Exam Vital Signs Temp Pulse Resp BP Pulse Ox O2 Del Method O2 Flow Rate 98.7 F 81 21 H 71/47 L 91 L Blow-by 8 07/06/24 16:00 07/06/24 16:00 07/06/24 16:00 07/06/24 16:00 07/06/24 16:00 07/06/24 16:00 07/06/24 16:00 FiO2 50 07/06/24 16:00 Objective Labs 07/06/24 05:39 07/06/24 15:05 Labs: Laboratory Results - last 24 hr 07/06/24 07/06/24 07/06/24 04:15 05:39 15:05 WBC 10.5 RBC 2.30 L Hgb 7.5 L Hct 23.4 L MCV 102 H MCH 32.6 MCHC 32.1 RDW Std Deviation 64.4 H Plt Count 228 Neut % (Auto) 90 H Lymph % (Auto) 8 L [place] % (Auto) 2 Eos % (Auto) 0 Baso % (Auto) 0 Neut # (Auto) 9.4 H Lymph # (Auto) 0.8 L [place] # (Auto) 0.2 Eos # (Auto) 0.0 Baso # (Auto) 0.0 Immature Gran # (Auto) 0.05 H Absolute Nucleated RBC 0.00 Immature Gran % 1 H Nucleated RBC % 0 Puncture Site Right Radial ABG pH 7.49 H ABG pCO2 45 ABG pO2 108 D ABG HCO3 34 H ABG O2 Saturation 99 H ABG Base Excess 9 H FiO2 40 Sodium 139 Potassium 2.4 L* D 3.9 D Chloride 101 Carbon Dioxide 30.6 Anion Gap 7 BUN 13 Creatinine 0.4 L Estim Creat Clear Calc 49.8 L eGFR > 60 BUN/Creatinine Ratio 33 H Glucose 127 H Calculated Osmolality 279 Calcium 7.5 L Corrected Calcium 8.3 L Magnesium 1.3 L Total Bilirubin 0.2 L AST 18 ALT < 7 L Alkaline Phosphatase 100 Total Protein 5.6 L Albumin 3.0 L Globulin 2.6 Albumin/Globulin Ratio 1.2 Impressions Impression: # Failure to thrive # Status postplacement of a PEG tube for enteral hyperalimentation Continue current rate of hyperalimentation with vital at 35 cc an hour ABG Interpretation ABG results: 06/15/24 06/15/24 06/15/24 11:06 14:05 17:00 ABG pH 7.23 L 7.33 L D 7.34 L ABG pCO2 69 H 56 H D 57 H ABG pO2 153 H 67 L D 65 L ABG HCO3 29 H 29 H 30 H ABG O2 Saturation 99 H 92 91 ABG Base Excess 0 3 4 H VBG pH VBG pCO2 VBG pO2 VBG Base Excess 06/16/24 06/17/24 06/18/24 04:04 04:36 04:04 ABG pH 7.35 7.42 7.53 H D ABG pCO2 57 H 54 H 57 H ABG pO2 58 L* 77 L 73 L ABG HCO3 31 H 35 H 47 H ABG O2 Saturation 88 L 96 96 ABG Base Excess 5 H 9 H 22 H VBG pH VBG pCO2 VBG pO2 VBG Base Excess 06/19/24 06/22/24 06/23/24 04:12 17:30 09:55 ABG pH 7.54 H ABG pCO2 50 H ABG pO2 61 L ABG HCO3 42 H ABG O2 Saturation 93 ABG Base Excess 18 H VBG pH 7.46 7.49 VBG pCO2 43 41 VBG pO2 98 H 39 D VBG Base Excess 6 H 7 H 06/25/24 06/26/24 06/27/24 05:04 12:08 04:54 ABG pH 7.47 H 7.48 H ABG pCO2 43 45 ABG pO2 60 L 41 L* ABG HCO3 31 H 34 H ABG O2 Saturation 92 77 L ABG Base Excess 6 H 9 H VBG pH 7.43 VBG pCO2 47 VBG pO2 35 VBG Base Excess 6 H 06/27/24 06/28/24 06/28/24 06:23 04:27 13:19 ABG pH 7.47 H 7.55 H ABG pCO2 46 41 ABG pO2 157 H D 78 L D ABG HCO3 34 H 36 H ABG O2 Saturation 100 H 98 ABG Base Excess 9 H 13 H VBG pH 7.56 VBG pCO2 41 VBG pO2 41 VBG Base Excess 13 H 06/29/24 07/01/24 07/02/24 15:15 06:59 05:03 ABG pH 7.39 7.55 H D ABG pCO2 67 H 41 D ABG pO2 80 L 99 ABG HCO3 41 H 36 H ABG O2 Saturation 95 99 H ABG Base Excess 13 H 12 H VBG pH 7.61 VBG pCO2 40 VBG pO2 76 H D VBG Base Excess 18 H 07/04/24 07/05/24 07/06/24 07:54 04:02 04:15 ABG pH 7.50 H 7.49 H 7.49 H ABG pCO2 40 45 45 ABG pO2 70 L D 63 L 108 D ABG HCO3 31 H 34 H 34 H ABG O2 Saturation 96 94 99 H ABG Base Excess 8 H 9 H 9 H VBG pH VBG pCO2 VBG pO2 VBG Base Excess Assessment & Plan A&P Narrative # Failure to thrive Plan Consent will be obtained from the appropriate authorities for placement of a PEG tube insertion under intravenous moderate sedation via fiberoptic esophageal gastroduodenoscopy Will follow the patient Other medical problems include # Acute hypoxic respiratory failure requiring endotracheal intubation and mechanical ventilation # Altered mental status # Schizophrenia # Clinically blind Thank you very much for the opportunity to participate in the care of this patient Time Spent With Patient Time: Total time spent is greater than 50% in coordination of care (as documented) at patient's floor/unit and/or counseling patient: Procedures Arterial Line Size (Gauge): 20
--- NOTE | 2024-07-06 19:02 | PC.NURSE ---
pt up to cardiac chair, unable to turn
[2024-07-06] MEDS: ATORVASTATIN CALCIUM 20 MG TABLET 40 MG PO (20:54)
--- NOTE | 2024-07-06 21:53 | PD.RESPRO ---
Documentation for date of: 07/06/24 Subjective Subjective Interval history: 07/05: No acute overnight events reported. Potassium levels 2.9 today, possibly from fludrocortisone dose, will decrease fludrocortisone dose again to 0.05 mg daily starting tomorrow, potassium repleted today. Patient remained on blow-by oxygenation 10L today, was transitioned back to ventilation with pressure support settings to provide rest for patient. Will continue cefazolin 2g BID for a 14 day total course, will be completed on 07/13/2024. Have contacted social service team regarding possible SNF placement, SNF placement may be difficult if patient does not have closed tracheostomy, social service team suggests possible sub-acute or LTAC care. 07/06: Overnight events, lab/imaging results, and notes reviewed. No overnight events reported. Patient examined bedside, was on spontaneous ventilation overnight, will be placed back on blow-by 8L today with plans to resume ventilation tonight. Potassium 2.4 today, will replete with PO and IV potassium (80 mEqs total), and repeat K labs with possible additional potassium in evening. Magnesium repleted today, will order repeat magnesium for tomorrow. Fludcortisone was adjusted to 0.05 mg qday yesterday, received the first 0.05mg dose today, plan to transition to fludcortisone every other day prior to discharge. Pending sub-acute or LTAC placement, social service team aware. Exam Vital Signs Temp Pulse Resp BP Pulse Ox O2 Del Method O2 Flow Rate 98.7 F 74 18 98/60 96 Blow-by 8 07/06/24 16:00 07/06/24 21:29 07/06/24 19:00 07/06/24 21:29 07/06/24 21:29 07/06/24 16:00 07/06/24 16:00 FiO2 40 07/06/24 21:29 Narrative Exam General: Cachectic, non-verbal HEENT: Trachestomy in place, right eye opaque appearance Heart: RRR, S1 and S2 without clicks or murmurs Lungs: Clear on auscultation bilaterally, no difficulty breathing Abdomen: Soft, nontender, PEG tube in place Skin: No cyanosis or edema noted Objective Labs 07/08/24 04:59 07/08/24 04:59 Labs: Laboratory Results - last 24 hr 07/06/24 07/06/24 07/06/24 04:15 05:39 15:05 WBC 10.5 RBC 2.30 L Hgb 7.5 L Hct 23.4 L MCV 102 H MCH 32.6 MCHC 32.1 RDW Std Deviation 64.4 H Plt Count 228 Neut % (Auto) 90 H Lymph % (Auto) 8 L [place] % (Auto) 2 Eos % (Auto) 0 Baso % (Auto) 0 Neut # (Auto) 9.4 H Lymph # (Auto) 0.8 L [place] # (Auto) 0.2 Eos # (Auto) 0.0 Baso # (Auto) 0.0 Immature Gran # (Auto) 0.05 H Absolute Nucleated RBC 0.00 Immature Gran % 1 H Nucleated RBC % 0 Puncture Site Right Radial ABG pH 7.49 H ABG pCO2 45 ABG pO2 108 D ABG HCO3 34 H ABG O2 Saturation 99 H ABG Base Excess 9 H FiO2 40 Sodium 139 Potassium 2.4 L* D 3.9 D Chloride 101 Carbon Dioxide 30.6 Anion Gap 7 BUN 13 Creatinine 0.4 L Estim Creat Clear Calc 49.8 L eGFR > 60 BUN/Creatinine Ratio 33 H Glucose 127 H Calculated Osmolality 279 Calcium 7.5 L Corrected Calcium 8.3 L Magnesium 1.3 L Total Bilirubin 0.2 L AST 18 ALT < 7 L Alkaline Phosphatase 100 Total Protein 5.6 L Albumin 3.0 L Globulin 2.6 Albumin/Globulin Ratio 1.2 ABG Interpretation ABG results: 06/15/24 06/15/24 06/15/24 11:06 14:05 17:00 ABG pH 7.23 L 7.33 L D 7.34 L ABG pCO2 69 H 56 H D 57 H ABG pO2 153 H 67 L D 65 L ABG HCO3 29 H 29 H 30 H ABG O2 Saturation 99 H 92 91 ABG Base Excess 0 3 4 H VBG pH VBG pCO2 VBG pO2 VBG Base Excess 06/16/24 06/17/24 06/18/24 04:04 04:36 04:04 ABG pH 7.35 7.42 7.53 H D ABG pCO2 57 H 54 H 57 H ABG pO2 58 L* 77 L 73 L ABG HCO3 31 H 35 H 47 H ABG O2 Saturation 88 L 96 96 ABG Base Excess 5 H 9 H 22 H VBG pH VBG pCO2 VBG pO2 VBG Base Excess 06/19/24 06/22/24 06/23/24 04:12 17:30 09:55 ABG pH 7.54 H ABG pCO2 50 H ABG pO2 61 L ABG HCO3 42 H ABG O2 Saturation 93 ABG Base Excess 18 H VBG pH 7.46 7.49 VBG pCO2 43 41 VBG pO2 98 H 39 D VBG Base Excess 6 H 7 H 06/25/24 06/26/24 06/27/24 05:04 12:08 04:54 ABG pH 7.47 H 7.48 H ABG pCO2 43 45 ABG pO2 60 L 41 L* ABG HCO3 31 H 34 H ABG O2 Saturation 92 77 L ABG Base Excess 6 H 9 H VBG pH 7.43 VBG pCO2 47 VBG pO2 35 VBG Base Excess 6 H 06/27/24 06/28/24 06/28/24 06:23 04:27 13:19 ABG pH 7.47 H 7.55 H ABG pCO2 46 41 ABG pO2 157 H D 78 L D ABG HCO3 34 H 36 H ABG O2 Saturation 100 H 98 ABG Base Excess 9 H 13 H VBG pH 7.56 VBG pCO2 41 VBG pO2 41 VBG Base Excess 13 H 06/29/24 07/01/24 07/02/24 15:15 06:59 05:03 ABG pH 7.39 7.55 H D ABG pCO2 67 H 41 D ABG pO2 80 L 99 ABG HCO3 41 H 36 H ABG O2 Saturation 95 99 H ABG Base Excess 13 H 12 H VBG pH 7.61 VBG pCO2 40 VBG pO2 76 H D VBG Base Excess 18 H 07/04/24 07/05/24 07/06/24 07:54 04:02 04:15 ABG pH 7.50 H 7.49 H 7.49 H ABG pCO2 40 45 45 ABG pO2 70 L D 63 L 108 D ABG HCO3 31 H 34 H 34 H ABG O2 Saturation 96 94 99 H ABG Base Excess 8 H 9 H 9 H VBG pH VBG pCO2 VBG pO2 VBG Base Excess Quality Measures Quality Measures VTE prophylaxis (Lovenox) Assessment & Plan Assessment Current Active Medications: Generic Name Dose Route Start Last Admin Trade Name Freq PRN Reason Stop Dose Admin Acetaminophen 650 mg 12/15/24 13:50 Acetaminophen Supp 650 Mg Supp [place] 07/15/24 13:49 Q4HR PRN PAIN SCALE 1-3 (mild Acetaminophen 650 mg 06/19/24 07:27 07/02/24 04:39 Acetaminophen Noreen 325 Mg/10 Ml Udc NG 07/19/24 07:26 650 mg Q4HR PRN Administration Pain Or Fever > 100.4 Protocol Al Hydrox/Mg Hydrox/Simethicone 30 ml 06/15/24 13:50 Mg Hyd/Al Hyd/[place] (Maalox Reg) Susp 30 Ml Udc NG 07/15/24 13:49 Q4HR PRN Heartburn or Upset Stomach Albuterol 2.5 mg 07/04/24 15:00 07/06/24 14:53 Albuterol Rt 2.5 Mg/0.5 Ml Nebu INH 08/03/24 14:59 2.5 mg Q8HRRT LIZ Administration Aspirin 81 mg 06/23/24 09:00 07/06/24 08:24 Aspirin 81 Mg Chew PO 07/23/24 08:59 81 mg QDAY LIZ Administration Atorvastatin Calcium 40 mg 06/21/24 21:00 07/06/24 20:54 Atorvastatin Calcium 20 Mg Tablet PO 07/21/24 20:59 40 mg HS LIZ Administration Calcium Carbonate 600 mg 06/23/24 09:00 07/06/24 08:24 Calcium Carbonate 600 Mg Tablet NG 07/23/24 08:59 600 mg QDAY LIZ Administration Dextrose 25 ml 06/24/24 13:46 Dextrose 50%-Water Inj 50 Ml Syringe IV 07/24/24 13:45 Q15MIN PRN BG 50-70 responsive npo pt Dextrose 50 ml 06/24/24 13:46 07/04/24 05:17 Dextrose 50%-Water Inj 50 Ml Syringe IV 07/24/24 13:45 50 ml Q15MIN PRN Administration BG <50 OR BG <70 & pt unresponsive Enoxaparin Sodium 30 mg 07/05/24 10:00 07/06/24 08:33 Enoxaparin Sod Inj 30 Mg/0.3 Ml Syringe SC 07/19/24 09:59 30 mg QDAY LIZ Administration Ferrous Sulfate 300 mg 06/25/24 09:00 07/06/24 08:25 Ferrous Sulfate 300 Mg/5 Ml Udc NG 07/25/24 08:59 300 mg QDAY LIZ Administration Fludrocortisone Acetate 0.05 mg 07/06/24 09:00 07/06/24 08:24 Fludrocortisone Acetate 0.1 Mg Tablet PO 08/05/24 08:59 0.05 mg QDAY LIZ Administration Glucagon 1 mg 06/24/24 13:46 Glucagon Inj 1 Mg Vial IM Q15MIN PRN BG <70, and no IV access Cefazolin Sodium 2 gm in 100 mls @ 100 mls/hr 07/01/24 21:00 07/06/24 20:54 Ancef 2gm Ivpb IV 07/13/24 13:40 100 mls/hr Q12HR LIZ Administration Insulin Human Lispro 0 unit 06/24/24 18:00 07/06/24 18:14 Insulin Lispro (Admelog) 1 Unit/0.01 Ml Unit SC 07/24/24 17:59 1 unit Q6HR LIZ Administration Protocol Magnesium Hydroxide 30 ml 06/15/24 13:50 Milk Of Magnesia Susp 30 Ml Udc NG 07/15/24 13:49 QDAY PRN CONSTIPATION Midodrine 5 mg 06/23/24 14:00 07/06/24 21:03 Midodrine 5 Mg Tablet PO 07/23/24 13:59 5 mg TID LIZ Administration Morphine Sulfate 2 mg 07/03/24 15:19 07/04/24 19:14 Morphine Sulf Inj 10 Mg/Ml Vial IVP 07/08/24 15:18 2 mg Q4HR PRN Administration Pain 4-10 or distress Multivitamins/Minerals 15 ml 06/19/24 15:15 07/06/24 08:25 Multivitamin 15 Ml Udc NG 07/19/24 15:14 15 ml QDAY LIZ Administration Pantoprazole Sodium 40 mg 06/16/24 09:00 07/06/24 08:25 Pantoprazole Inj 40 Mg Vial IVP 07/16/24 08:59 40 mg QDAY LIZ Administration Pharmacy Consult 1 each 06/15/24 18:27 Pharmacy To Consult Pneumovacc XX 07/15/24 18:26 PRN PRN CONSULT Potassium Phos/Sodium Phos 1 packet 06/28/24 11:00 07/06/24 20:54 Naph,Kph Mbdb 1 Packet (1.5 Gm) PO 07/28/24 10:59 1 packet BID LIZ Administration Sertraline HCl 100 mg 06/23/24 15:30 07/06/24 09:40 Sertraline Hcl 25 Mg Tablet NG 07/23/24 15:29 100 mg QDAY LIZ Administration Simethicone 40 mg 07/02/24 09:30 07/06/24 20:54 Simethicone 40 Mg/0.6 Ml Oral Syringe GT 08/01/24 09:29 40 mg BID LIZ Administration Sodium Chloride 3 ml 07/04/24 10:05 07/06/24 14:53 Sodium Chloride Rt [place] 0.9% 3 Ml Nebu INH 08/03/24 10:04 3 ml PRN PRN Administration SOLN Plan 54 Y/O F with PMHx significant for Downs Syndrome, Schizophrenia,blindness, IBS, presents with chief complaint of AMS, last known normal 9 pm last night, admitted to ICU for septic shock requiring pressors and acute hypoxic respiratory failure requiring intubation. Neuro: #Acute encephalopathy-resolved Multifactorial: hypoxia, S/p shock, electrolytes imbalance Low density areas in both basal ganglia seen on head CT -Neurologist Dr. Jaeger was consulted. -EEG completed-interpreted as abnormal with diffuse slowing suggestive of a diffuse encephalopathy of hypoxic origin per neurology. #Hx Schizophrenia #Hx Depression -Held patient's home medication risperidone 4mg BID, Ziprasidone 60mg BID, and zolpidem 10mg PO HS. -continue with Sertraline 100mg daily Cardio: #Hypotension Patient was treated for septic shock with vasopressors. MAP improved but patient's BP remains low. MAP is above 50. Continue BP support with midodrine. -continue midodrine 5 mg TID -MAP goal > 50 Pulm: #AHRF 08/03 #MSSA pneumonia Patient has history of Down syndrome, risk for aspiration pneumonia. Bacterial and viral pneumonia both possible. Influenza panel negative. MRSA screen negative. Sedated and mechanically ventilated Extubated on 06/24/24, but reintubated on 06/25 Patient extubated for second time, still severely hypoxic, requiring high flow nasal cannula. Patient desatted despite several hours of manual bagging, required reintubation. Tracheostomy performed 07/03/2024 Sputum culture positive for MSSA pneumonia on 06/25 Plan: -continue renaly dosed cefazolin 2 g BID daily #s/p tracheostomy Unable to successfully extubate. Underwent tracheostomy on 07/03 for long-term mechanical ventilation. On 10L oxygen blow by. Plan: -nocturnal ventilation set to previous settings PS mode: PS 5.0, PEEP 8.0, FiO2 50 -During day time, tracheostomy blow-by as tolerated GI: #Severe protein malnutrition #s/p PEG tube placement Patient BMI 14.9. Patient unable to provide history, per caregiver patient has good oral intake most times, has been malnourished for years due to chronic diarrhea, has not had significant weight loss recently. Patient has very little muscle mass, temporal wasting, sunken eyes. GI was consulted and patient underwent PEG tube placement on 07/03. Dietary team was consulted and patient to be started on Vital 1.2 at 10 mL/h. Advance 10 mL every 8 hours to goal rate of 35 mL/h. Plan: -tube feeding goal 35 ml/h -daily labs -monitoring/repleting of potassium, phosphorous, magnesium #Hx IBS Patient history of IBS. Patient had diarrhea for 3 days prior to admission, not unusual for patient. Per caregiver, patient also experiences diarrhea after any food intake. Possible underlying malabsorption (celiac vs pancreatic insufficiency vs lactose deficiency) -Monitor bowel movements -stool osmolarity test pending -Treat metabolic abnormalities as needed Renal: #Contraction alkalosis Possibly due to refeeding syndrome, in setting of diarrhea vs hydrocortisone use. Plan: -decrease fludrocortisone (refer to Endo) -Monitor daily daily potassium and sodium -Continue PEG feeds Endo: #Adrenal insufficiency Suspect due to chronic malnutrition. Patient arrived with hypotension, hypernatremia. Patient has been hypokalemic despite repletion and bradycardic. Clinical improvement with hydrocortisone followed by worsening when dosage reduced. Patient continues to present with hypokalemia even with yesterday's dose reduction. Continue to wean from 0.1 mg to 0.05 mg daily. Plan: -Decrease fludrocortisone from 0.1 mg to 0.05 mg daily on 07/05 -Received first 0.05mg fludrocortisone dose on 07/06 -Will plan to taper fludrocoristone to 0.05mg every other day prior to discharge -monitor sodium and potassium #Hyperglycemia-resolved Patient had mild hyperglycemia that was uptrending. No history of diabetes. Likely due to steroid treatment. -Started on SSI lispro q6h -Monitor Heme: #Hematomas, resolved Hematomas in bilateral inguinal folds as complications of attempted femoral arterial line placement. Hematomas have resolved, leaving bruises and inguinal folds. -Monitor #Macrocytic anemia Patient hemoglobin 9.2, MCV 114. No previous labs to compare to. No obvious signs of acute bleeding. On 06/23: Hb 6.9, transfused 1 unit PRBC Folate and B12 not depleted. -Monitor and replete for hgb < 7.0 ID: #MSSA bacteremia Blood cultures positive for MSSA bacteremia, source likely being MSSA pneumonia. Central line was removed. Blood cultures negative 06/29. New onset fever on 07/02/24, repeat blood cultures also negative after 48 hour read Repeat blood cultures negative Plan: -continue renally dosed cefazolin 2g BID for total of 14 days from time of last negative blood culture. (Finish course Jul 13 2024) #Aspiration Pneumonia #MSSA Pneumonia Patient in acute hypoxic respiratory failure, chest x-ray with left-sided consolidations. -On cefazolin 2 g BID Health maintenance: Diet: Vital tube feeds at 35 ml/hr DVT prophylaxis: Lovenox 30 daily G.I prophylaxis: Pantoprazole Code: Full code Patient case discussed with attending physician Dr. Gabi Manzano DO PGY-3 Attending Provider Attestation/Addendum Patient seen and examined with above resident, Janett Manzano DO. I agree with the findings, assessment, and plan of care as documented except for any differences below. Patient continues to show slow improvement. Requiring intermittent use of mechanical elation but able to tolerate extended periods of blow-by. Patient mentation appears to be now baseline she is communicative with staff as well as with her family/caregiver. Patient tolerating tube feeds well now via PEG tube. Remains hemodynamically stable and we will continue to adjust doses of fludrocortisone as we taper off. Patient notably with hypokalemia requiring aggressive potassium repletion. Likely will be able to wean off fludrocortisone in the coming days. Will start working on potential placement at subacute versus LTAC. Based on plan of care with requirements for mechanical ventilation and ongoing management, we will likely able to transfer the patient out to the telemetry carney for ongoing management until placement can be achieved in the coming days. In interim, patient will continue to finish course of cefazolin for MSSA bacteremia and pneumonia. Increase mobilization with transition to cardiac chair and to begin working with PT to regain her strength which was a limiting step in her ability to be successfully weaned from mechanical elation along with her malnutrition which we are addressing with tube feeds. Awaiting additional GI workup for potential malabsorption syndromes, if stool osmolarity is elevated I suggest initiation of pancreatic enzymes. Patient's family/caregiver updated at bedside on ongoing management and plan of care. Total critical time: I personally spent 40 minutes for review of physiologic parameters, directing plan of care throughout the day, coordination of care with other specialties, and counseling patient's family/caregiver at bedside. This is exclusive of time spent teaching housestaff or performing separate billable procedures. Patient continued require critical care services for acute hypoxic respiratory failure secondary to recurrent aspiration pneumonia further complicated by MSSA bacteremia and pneumonia with inability to successfully wean from mechanical elation warranting tracheostomy placement. Patient continues to be at risk for further morbidity and mortality requiring close monitoring and care only available in the intensive care unit.
[2024-07-07] VITALS (42 sets, daily range): BP systolic 66–137; BP diastolic 40–78; PULSE 57–123; RESP 0–28; TEMP 36.2–36.9; O2SAT 86–100
[2024-07-07] MEDS: INSULIN LISPRO (AdmeLOG) 1 UNIT/0.01 ML UNIT SC ×2 (01:03→13:21)
--- NOTE | 2024-07-07 01:06 | PC.NURSE ---
per DR Loza with potassium of 3.9 hold the 40 of potassium
[2024-07-07] MEDS: MIDODRINE 5 MG TABLET PO ×3 (05:44→21:07)
[2024-07-07 06:42] LABS: Basophils % (Auto) 0 % (0-2.5); Eosinophils % (Auto) 0 % (0-10); Hematocrit 21.1 % (36.0-46.0); Immature Granulocytes % (Auto) 1 % (0-0); Immature Granulocytes Auto 0.06 Thou/mm3 (0.00-0.00); Lymphocytes # (Auto) 0.8 Thou/mm3 (1.0-4.8); Lymphocytes % (Auto) 10 % (10-50); Mean Corpuscular HGB Conc 31.8 g/dl (31.0-37.0); Mean Corpuscular Hemoglobin 32.8 pg (25.0-35.0); Mean Corpuscular Volume 103 fL (80-100); Monocytes # (Auto) 0.2 Thou/mm3 (0.0-0.8); Monocytes % (Auto) 3 % (0-12); Neutrophils % (Auto) 87 % (37-80); Nucleated Red Blood Cell % 0 /100 WBC (0); Platelet Count 228 Thou/mm3 (140-440); RDW Standard Deviation 66.2 fL (36.4-46.3); Red Blood Count 2.04 Miln/mm3 (4.00-5.20)
[2024-07-07 06:46] LABS: Hemoglobin 6.7 g/dL (12.0-16.0)
[2024-07-07] MEDS: ALBUTEROL RT 2.5 MG/0.5 ML NEBU INH ×3 (06:46→23:44)
[2024-07-07] MEDS: SODIUM CHLORIDE RT SOL 0.9% 3 ML NEBU INH ×3 (06:46→23:44)
[2024-07-07 07:14] LABS: Alanine Aminotransferase < 7 U/L (10-49); Albumin, Serum 2.8 gm/dL (3.5-5.0); Albumin/Globulin Ratio 1.1 (1.2-2.2); Alkaline Phosphatase 91 U/L (46-116); Anion Gap 8 (7-16); Aspartate Amino Transferase 23 U/L (0-34); BUN/Creatinine Ratio 33 Ratio (12-20); Bilirubin,Total 0.2 mg/dL (0.3-1.2); Blood Urea Nitrogen 13 mg/dL (9-23); Calcium 7.4 mg/dL (8.3-10.6); Calcium (Corrected) 8.4 mg/dL (8.5-10.1); Carbon Dioxide 29.4 mMol/L (20.0-31.0); Chloride 101 mMol/L (98-107); Creatinine (Component) 0.4 mg/dL (0.6-1.3); Estimated Creatinine Clearance 55.6 mL/min (>60); Globulin 2.6 gm/dL (2.3-3.5); Glucose 107 mg/dL (74-106); Magnesium 1.7 mg/dL (1.6-2.6); Osmolality,Calculated 275 (275-295); Potassium 3.2 mMol/L (3.4-5.1); Sodium 138 mMol/L (136-145); Total Protein 5.4 gm/dL (5.7-8.2); eGFR > 60 See Note
[2024-07-07] MEDS: ASPIRIN 81 MG CHEW PO (08:36)
[2024-07-07] MEDS: CALCIUM CARBONATE 600 MG TABLET NG (08:36)
[2024-07-07] MEDS: ceFAZolin/D5W 2 GM IV 2 GM/100 ML BAG IV ×2 (08:36→23:05)
[2024-07-07] MEDS: NAPH,KPH MBDB 1 PACKET (1.5 GM) PO ×2 (08:36→21:07)
[2024-07-07] MEDS: ENOXAPARIN SOD INJ 30 MG/0.3 ML SYRINGE SC (08:36)
[2024-07-07] MEDS: MULTIVITAMIN 15 ML UDC NG (08:36)
[2024-07-07] MEDS: SIMETHICONE 40 MG/0.6 ML ORAL SYRINGE GT ×2 (08:36→21:07)
[2024-07-07] MEDS: PANTOPRAZOLE INJ 40 MG VIAL IVP (08:36)
[2024-07-07] MEDS: Ferrous Sulfate 300 MG/5 ML UDC NG (08:36)
[2024-07-07] MEDS: SERTRALINE HCL 25 MG TABLET 100 MG NG (08:55)
[2024-07-07] MEDS: POTASSIUM CHLORIDE 10% 20 MEQ/15 ML UDC 40 MEQ GT (08:55)
--- NOTE | 2024-07-07 09:53 | PC.SS ---
Addendum entered by MATEUS Aggarwal 07/07/24 14:15: Received call from Margie at [facility] subacute, informs they can accept the patient at subacute as patient appears appropriate. Margie is requesting patient to transition to transfer subacute early tomorrow morning if patient is stable. Updated patient's bed side nurse Demetria. Addendum entered by MATEUS Aggarwal 07/07/24 10:24: Provided ICU resident with contact information for Dr. Crawley for peer to peer discussion. Addendum entered by MATEUS Aggarwal 07/07/24 09:59: Contacted Margie at [facility] subacute, she request if ICU doctor can have a peer to peer discussion with Dr. Crawley to determine if patient is appropriate for our subacute. Original Note: SS Update: Spoke with patient's guardian, Ayala Putnam to discuss the patient's discharge plan. Ayala is requesting the [facility]-Sub Acute.
[2024-07-07] MEDS: Magnesium Sulfate 2 GM Ivpb 2 GM/50 ML BAG IV (13:15)
[2024-07-07] MEDS: POTASSIUM CHLORIDE 20 mEq TABCR 40 MEQ PO (13:18)
[2024-07-07] MEDS: POTASSIUM CHL 10 mEq IVPB 10 MEQ/100 ML BAG 100 MEQ IV ×4 (13:25→17:14)
--- NOTE | 2024-07-07 16:11 | PC.NURSE ---
@1553, PT transferred to room 270. Report given to SRIKANTH Raphael who will assume care of patient. Point of contact updated
--- NOTE | 2024-07-07 17:52 | ESPR_ITS ---
Documentation for date of: 07/07/24 Subjective Subjective Interval history: 54 Y/O F with PMHx significant for Downs Syndrome, Schizophrenia,blindness, IBS, presents with chief complaint of AMS, last known normal 9 pm last night. Patient in unable to provide history, history taken from caregiver at bedside. Patient has had cough for about five days, noted sore throat. Patient has had diarrhea for 3 days, which is not uncommon for patient due to IBS. Patient was last seen at 9 pm last night. This morning patient was found unresponsive in her bed by caregiver. Patient is brought to ED, patient found to have low GCS, hypoxia with O2 sat 60% on nonrebreather, blood pressure 84 over palp. Patient was started on pressors, intubated. Patient had CODE BLUE, with 1 dose of epi before ROSC. Patient ventilated, started on sedation with propofol. Patient given 7 to 50 mL normal saline bolus and Rocephin in the ED. Blood urine and sputum cultures taken. 06/24/2024: The patient was examined and evaluated at the bedside this morning. The patient seemed more alert today. Patient was on pressor support with Levophed 0.08, vasopressin 0.03 and dopamine 10, breathing spontaneously on mechanical ventilation with pressure support. White count trended down to 17.4, hemoglobin 7.8, sodium stable at 124, potassium 3.4, calcium 8.3, magnesium 1.7 and we repleted magnesium 2 g IV, started on calcium carbonate 600 Mg daily, blood sugar 293, started the patient on SSI sensitive scale. 40 mEq of KCl was repleted. The phosphorus was 2.5, and we increased the dose of Neutra-Phos to 2 packs twice daily. The patient was successfully extubated to oxy mask. Discussion regarding the decision maker was done by me with patient's sister Annamarie Wilson in the presence of SRIKANTH Julian. Patient's Sister Annamarie Wilson verbally stated that Ayala Putnam, who has been the dynamic etching processor of the patient would be the decision maker for the patient for medical management and CODE STATUS changes. 06/25/2024: The patient was examined and evaluated at the bedside this morning. Overnight, the patient was desaturating in 80s, and was started on NC, transitioned to oxy mask, transition to BiPAP and finally was reintubated. Chest x-ray was significant for left lower lung pneumonia, likely secondary to aspiration pneumonia as patient was recently extubated, and given her underlying severe malnutrition was started on tube feed. Patient is on fentanyl drip to maintain RASS of 0, and on pressor support with Levophed, vasopressin and dopamine. She continues to be in sinus bradycardia. White count elevated to 13.5 in the setting of aspiration pneumonia, sodium continues to be 125, and she was given 500 cc of IV normal saline bolus, potassium 3.4 and was given 40 mEq of KCl. 06/26/2024: The patient was examined and evaluated at the bedside this morning. Overnight, patient did not had any acute overnight events. White count mildly trended down to 31.2, cultures pending, we discontinued linezolid and we will continue with meropenem at this point. Patient tapered down on dopamine to 7.5, and other pressor support discontinued. We considered for MAP to be stable if greater than 50, as demonstrated by normal lactic acid level at MAP greater than 50. The plan is to extubate the patient tomorrow morning. 06/27/2024: The patient was examined and evaluated at the bedside this morning again. Overnight no acute events. White count trended down to 21.5, ABG revealed pH 7.47, pCO2 46, and bicarb 34. Potassium was 2.8, and was repleted. Blood sugar this morning was 278 with mild transaminitis. We stopped dopamine drip, and the MAP goal is greater than 50. We will try for SBT tomorrow morning. Goals of care discussion was done, and Ayala Putnam who is the decision-maker recommended to proceed with tracheostomy tube if required. 06/28/2024: Patient seen and examined at bedside. Overnight patient became agitated with worsening sinus tachycardia, received 0.5 mg Ativan x 1, after which patient became hypotensive requiring Levophed to be resumed. Levophed titrate down to 0.03, held there to maintain MAP while patient is extubated. On exam patient is more active, opening eyes and moving all extremities. Patient tolerated pressure support well, with successfully extubated without complications. Patient strict n.p.o. VBG showed pH 7.56, pCO2 41, pO2 41. Lactate 2.0. Phosphorus 2.1, received 15 mmol potassium phosphate. Central line removed, Levophed transferred to peripheral IV. 06/29/2024: Patient seen and examined at bedside. Patient was reportedly very active overnight. In the morning, patient became acutely hypoxic, required BVM to maintain oxygen saturations. Chest x-ray showed consolidation of left lung base indicating atelectasis, possibly due to aspiration versus mucous plugging. Patient was repositioned on the right side and placed on high flow nasal cannula with immediate improvement in oxygenation. Will continue to titrate FiO2 as tolerated by patient. Levophed was discontinued. Repeat blood cultures drawn today for MSSA bacteremia. 06/30/2024: Patient seen and examined at bedside. In the morning patient had episode of desaturation down to low 80s. Patient was repositioned and sat up, high flow nasal cannula increased to 100% FiO2 at 40 L/min. Oxygen saturation improved. Goals of care conversation held with dynamic etching processor, explained that patient required intubation patient required tracheostomy and PEG tube placement for long-term rehabilitation. Home Health Nurse fully understands and wishes to proceed with full and aggressive treatment. Plan to have patient sit up in chair and attempt to maintain O2 saturations, if needed will reintubate patient and consult general surgery for tracheostomy and PEG tube placement. Started patient on D10 NS for nutritional support. 07/01/2024: Patient seen and examined at bedside. In the assistant professor of economics patient had severe desaturation, was manually bagged for several hours but continued to have poor saturations and developed cyanosis. Patient was reintubated due to acute hypoxic respiratory failure. As per previous conversations with dynamic etching processor, general surgery consult placed for tracheostomy and GI consult placed for PEG tube placement. Tube feeds initiated. Patient not sedated, compliant with vent. 07/02/2024: Patient seen and examined at bedside. Patient developed fever of 100.6 in assistant professor of economics. PEG tube placement was postponed, and tube feeds resumed. Antibiotics broadened to zosyn. Sputum, blood, and urine cultures collected. CXR ordered. Patient off sedation, remains compliant with vent. Continuing breathing treatments and CPT. 07/03/2024: Patient seen and examined at bedside. Patient has been afebrile overnight. Patient had tracheostomy placement performed today, procedure completed without incident. NG tube placed to allow medication administration. Discussed changing patient's tube feeds to something easier to absorb with dietary, recommendations placed. Tube feeds held pending PEG tube placement later today. Send out test for stool osmolarity sent to [facility] for malabsorption. 07/04/24: Patient seen and examined at bedside. No acute events overnight. Today she is awake but unable to follow commands. Patient is status post tracheostomy and PEG tube placement. Dietary team was consulted and patient was started on Vital 1.2 at 10 mL/h. Advance 10 mL every 8 hours to goal rate of 35 mL/h. No bleeding or drainage noticed from tracheostomy site. Potassium had down trended to 2.7 today. May be in setting of fludrocortisone for treatment of adrenal insufficiency. Will change dose from 0.2 mg to 0.1 mg daily and monitor daily potassium and BP. She was repleted with 40+40 mEq today via GT. Patient has history of malabsorption indicated via immediate episodes of diarrhea after any food intake. Stool osmolarity sent for possible etiology. Vitals significant for low blood pressure 80/65, heart rate 68, respiratory rate 20, no fevers. WBC 11.2, macrocytic anemia MCV 102 hemoglobin 7, platelets 189. Sodium 142, hypokalemia 2.7, creatinine 0.4. Today ABG revealing metabolic alkalosis pH 7.5, pCO2 40, pO2 70, bicarb 31, FiO2 21, PF ratio 333. Continue close monitoring of potassium, sodium, blood pressure. Stop Zosyn and continue cefazolin 2 g TID for treatment of MSSA bacteremia. 07/05/24: Patient seen and examined at bedside. No acute events overnight. Per nursing, patient has had 1 bowel movement this morning, loose consistency. Patient is awake and gives mumbled, one-word responses when speaking to caregiver or family. No bleeding or drainage noticed from tracheostomy/PEG site. Patient was started on PEG tube feedings yesterday. Has reached goal feeding of 35 mL/h today. Potassium dropped again to 2.9 today. Repleted with 40 mEq. Due to continued metabolic alkalosis and low potassium, fludrocortisone further decreased from 0.1 mg daily to 0.05 mg daily. Recheck potassium. Labs significant for WBC 11.7, hemoglobin stable 7.6, sodium 142, downtrended potassium 2.9, creatinine 0.5. Pressure remains on soft side 84/56. pH on ABG 7.49, pCO2 45, FiO2 50. Patient is now on blow by with 10L oxygen. Will continue with only nocturnal mechanical ventilation. Stool osmolarity still pending. Continue with cefazolin 2 g twice daily for treatment of MSSA bacteremia. Complete course by July 13 which is 14 days from the first negative blood culture. Case was discussed with social work nurse team. SNF may not accept patient with open trach on blow by. May consider sub-acute care in 2-3 days. 07/06/24: Overnight events, lab/imaging results, and notes reviewed. No overnight events reported. Patient examined bedside, was on spontaneous ventilation overnight, will be placed back on blow-by 8L today with plans to resume ventilation tonight. Potassium 2.4 today, will replete with PO and IV potassium (80 mEqs total), and repeat K labs with possible additional potassium in evening. Magnesium repleted today, will order repeat magnesium for tomorrow. Fludcortisone was adjusted to 0.05 mg qday yesterday, received the first 0.05mg dose today, plan to transition to fludcortisone every other day prior to discharge. Pending sub-acute or LTAC placement, social service team aware. 07/07/24: Patient seen and examined at beside. No acute events overnight. At bedside, patient was on ventilator. She was placed on blow by 8 L later on in the day. Continue to use ventilation overnight. Fludrocortisone was decreased to 0.05 mg daily. Potassium shows improvement however still slightly low at 3.2. Was repleted with 40+40+40 mEq. Will taper fludrocortisone 0.05 mg every other day. Patient was transfused 1 unit PRBC after morning labs resulted hemoglobin 6.7 hematocrit 21. No signs of active bleeding. Maybe due to hemodilution or daily blood draws. Recommend to check CBC every other day. Dr. Crawley was consulted for possible placement in subacute care. Stated that acute care would be able to take patient once she has been tapered off fludrocortisone. Continue cefazolin 2 g twice daily until July 13 for treatment of MSSA bacteremia. Is currently at goal rate 35 cc/h feeds via PEG tube. Per nursing, patient continues to have loose stool. Workup for underlying cause for malabsorption with stool osmolarity test still pending. Case was discussed with primary care team and patient was downgraded to floors today before transition to subacute care. Exam Vital Signs Temp Pulse Resp BP Pulse Ox O2 Del Method O2 Flow Rate 97.8 F 81 17 87/49 L 92 L Mechanical Ventilation 10 07/07/24 16:12 07/07/24 16:12 07/07/24 16:12 07/07/24 16:12 07/07/24 16:12 07/07/24 16:12 07/07/24 07:18 FiO2 40 07/07/24 14:16 Narrative Exam Gen: Extremely cachectic, makes continuous orofacial movements, non verbal HEENT: Dry mucous membranes. Left eye heavily scarred, right eye glassy. CVS: normal S1 and S2. No M/R/G. Resp: No rhonchi, rales, crackles or wheezing. Abd: soft, non-tender, non-distended, PEG tube no active leaking MSK: No edema. Multiple old scars/wounds on all extremities. Bruising at left/right inguinal folds. Neuro: unable to evaluate, does not seem to track movement Objective Labs 07/11/24 08:40 07/11/24 08:40 Labs: Laboratory Results - last 24 hr 07/07/24 07/07/24 06:09 10:12 WBC 8.0 RBC 2.04 L Hgb 6.7 L* Hct 21.1 L* MCV 103 H MCH 32.8 MCHC 31.8 RDW Std Deviation 66.2 H Plt Count 228 Neut % (Auto) 87 H Lymph % (Auto) 10 [place] % (Auto) 3 Eos % (Auto) 0 Baso % (Auto) 0 Neut # (Auto) 7.0 Lymph # (Auto) 0.8 L [place] # (Auto) 0.2 Eos # (Auto) 0.0 Baso # (Auto) 0.0 Immature Gran # (Auto) 0.06 H Absolute Nucleated RBC 0.00 Immature Gran % 1 H Nucleated RBC % 0 Sodium 138 Potassium 3.2 L D Chloride 101 Carbon Dioxide 29.4 Anion Gap 8 BUN 13 Creatinine 0.4 L Estim Creat Clear Calc 55.6 L eGFR > 60 BUN/Creatinine Ratio 33 H Glucose 107 H Calculated Osmolality 275 Calcium 7.4 L Corrected Calcium 8.4 L Magnesium 1.7 Total Bilirubin 0.2 L AST 23 ALT < 7 L Alkaline Phosphatase 91 Total Protein 5.4 L Albumin 2.8 L Globulin 2.6 Albumin/Globulin Ratio 1.1 L Blood Type O Positive Antibody Screen NEGATIVE Crossmatch See Detail Blood Bank Wristband ID Yes ABG Interpretation ABG results: 06/15/24 06/15/24 06/15/24 11:06 14:05 17:00 ABG pH 7.23 L 7.33 L D 7.34 L ABG pCO2 69 H 56 H D 57 H ABG pO2 153 H 67 L D 65 L ABG HCO3 29 H 29 H 30 H ABG O2 Saturation 99 H 92 91 ABG Base Excess 0 3 4 H VBG pH VBG pCO2 VBG pO2 VBG Base Excess 06/16/24 06/17/24 06/18/24 04:04 04:36 04:04 ABG pH 7.35 7.42 7.53 H D ABG pCO2 57 H 54 H 57 H ABG pO2 58 L* 77 L 73 L ABG HCO3 31 H 35 H 47 H ABG O2 Saturation 88 L 96 96 ABG Base Excess 5 H 9 H 22 H VBG pH VBG pCO2 VBG pO2 VBG Base Excess 06/19/24 06/22/24 06/23/24 04:12 17:30 09:55 ABG pH 7.54 H ABG pCO2 50 H ABG pO2 61 L ABG HCO3 42 H ABG O2 Saturation 93 ABG Base Excess 18 H VBG pH 7.46 7.49 VBG pCO2 43 41 VBG pO2 98 H 39 D VBG Base Excess 6 H 7 H 06/25/24 06/26/24 06/27/24 05:04 12:08 04:54 ABG pH 7.47 H 7.48 H ABG pCO2 43 45 ABG pO2 60 L 41 L* ABG HCO3 31 H 34 H ABG O2 Saturation 92 77 L ABG Base Excess 6 H 9 H VBG pH 7.43 VBG pCO2 47 VBG pO2 35 VBG Base Excess 6 H 06/27/24 06/28/24 06/28/24 06:23 04:27 13:19 ABG pH 7.47 H 7.55 H ABG pCO2 46 41 ABG pO2 157 H D 78 L D ABG HCO3 34 H 36 H ABG O2 Saturation 100 H 98 ABG Base Excess 9 H 13 H VBG pH 7.56 VBG pCO2 41 VBG pO2 41 VBG Base Excess 13 H 06/29/24 07/01/24 07/02/24 15:15 06:59 05:03 ABG pH 7.39 7.55 H D ABG pCO2 67 H 41 D ABG pO2 80 L 99 ABG HCO3 41 H 36 H ABG O2 Saturation 95 99 H ABG Base Excess 13 H 12 H VBG pH 7.61 VBG pCO2 40 VBG pO2 76 H D VBG Base Excess 18 H 07/04/24 07/05/24 07/06/24 07:54 04:02 04:15 ABG pH 7.50 H 7.49 H 7.49 H ABG pCO2 40 45 45 ABG pO2 70 L D 63 L 108 D ABG HCO3 31 H 34 H 34 H ABG O2 Saturation 96 94 99 H ABG Base Excess 8 H 9 H 9 H VBG pH VBG pCO2 VBG pO2 VBG Base Excess Quality Measures Quality Measures VTE prophylaxis (Lovenox) Assessment & Plan Assessment Current Active Medications: Generic Name Dose Route Start Last Admin Trade Name Freq PRN Reason Stop Dose Admin Acetaminophen 650 mg 06/15/24 13:50 Acetaminophen Supp [address] 07/15/24 13:49 Q4HR PRN PAIN SCALE 1-3 (mild Acetaminophen 650 mg 06/19/24 07:27 07/02/24 04:39 Acetaminophen Noreen 325 Mg/10 Ml Udc NG 07/19/24 07:26 650 mg Q4HR PRN Administration Pain Or Fever > 100.4 Protocol Al Hydrox/Mg Hydrox/Simethicone 30 ml 06/15/24 13:50 Mg Hyd/Al Hyd/[place] (Maalox Reg) Susp 30 Ml Udc NG 07/15/24 13:49 Q4HR PRN Heartburn or Upset Stomach Albuterol 2.5 mg 07/04/24 15:00 07/07/24 14:16 Albuterol Rt 2.5 Mg/0.5 Ml Nebu INH 08/03/24 14:59 2.5 mg Q8HRRT LIZ Administration Aspirin 81 mg 06/23/24 09:00 07/07/24 08:36 Aspirin 81 Mg Chew PO 07/23/24 08:59 81 mg QDAY LIZ Administration Atorvastatin Calcium 40 mg 06/21/24 21:00 07/06/24 20:54 Atorvastatin Calcium 20 Mg Tablet PO 07/21/24 20:59 40 mg HS LIZ Administration Calcium Carbonate 600 mg 06/23/24 09:00 07/07/24 08:36 Calcium Carbonate 600 Mg Tablet NG 07/23/24 08:59 600 mg QDAY LIZ Administration Dextrose 25 ml 06/24/24 13:46 Dextrose 50%-Water Inj 50 Ml Syringe IV 07/24/24 13:45 Q15MIN PRN BG 50-70 responsive npo pt Dextrose 50 ml 06/24/24 13:46 07/04/24 05:17 Dextrose 50%-Water Inj 50 Ml Syringe IV 07/24/24 13:45 50 ml Q15MIN PRN Administration BG <50 OR BG <70 & pt unresponsive Enoxaparin Sodium 30 mg 07/05/24 10:00 07/07/24 08:36 Enoxaparin Sod Inj 30 Mg/0.3 Ml Syringe SC 07/19/24 09:59 30 mg QDAY LIZ Administration Ferrous Sulfate 300 mg 06/25/24 09:00 07/07/24 08:36 Ferrous Sulfate 300 Mg/5 Ml Udc NG 07/25/24 08:59 300 mg QDAY LIZ Administration Fludrocortisone Acetate 0.05 mg 07/08/24 09:00 Fludrocortisone Acetate 0.1 Mg Tablet PO 08/07/24 08:59 Q48H LIZ Glucagon 1 mg 06/24/24 13:46 Glucagon Inj 1 Mg Vial IM Q15MIN PRN BG <70, and no IV access Cefazolin Sodium 2 gm in 100 mls @ 100 mls/hr 07/01/24 21:00 07/07/24 08:36 Ancef 2gm Ivpb IV 07/13/24 13:40 100 mls/hr Q12HR LIZ Administration Insulin Human Lispro 0 unit 06/24/24 18:00 07/07/24 13:21 Insulin Lispro (Admelog) 1 Unit/0.01 Ml Unit SC 07/24/24 17:59 1 unit Q6HR LIZ Administration Protocol Magnesium Hydroxide 30 ml 06/15/24 13:50 Milk Of Magnesia Susp 30 Ml Udc NG 07/15/24 13:49 QDAY PRN CONSTIPATION Midodrine 5 mg 06/23/24 14:00 07/07/24 13:18 Midodrine 5 Mg Tablet PO 07/23/24 13:59 5 mg TID LIZ Administration Morphine Sulfate 2 mg 07/03/24 15:19 07/04/24 19:14 Morphine Sulf Inj 10 Mg/Ml Vial IVP 07/08/24 15:18 2 mg Q4HR PRN Administration Pain 4-10 or distress Multivitamins/Minerals 15 ml 06/19/24 15:15 07/07/24 08:36 Multivitamin 15 Ml Udc NG 07/19/24 15:14 15 ml QDAY LIZ Administration Pantoprazole Sodium 40 mg 06/16/24 09:00 07/07/24 08:36 Pantoprazole Inj 40 Mg Vial IVP 07/16/24 08:59 40 mg QDAY LIZ Administration Pharmacy Consult 1 each 06/15/24 18:27 Pharmacy To Consult Pneumovacc XX 07/15/24 18:26 PRN PRN CONSULT Potassium Phos/Sodium Phos 1 packet 06/28/24 11:00 07/07/24 08:36 [facility] Mbdb 1 Packet (1.5 Gm) PO 07/28/24 10:59 1 packet BID LIZ Administration Sertraline HCl 100 mg 06/23/24 15:30 07/07/24 08:55 Sertraline Hcl 25 Mg Tablet NG 07/23/24 15:29 100 mg QDAY LIZ Administration Simethicone 40 mg 07/02/24 09:30 07/07/24 08:36 Simethicone 40 Mg/0.6 Ml Oral Syringe GT 08/01/24 09:29 40 mg BID LIZ Administration Sodium Chloride 3 ml 07/04/24 10:05 07/07/24 14:16 Sodium Chloride Rt Noreen 0.9% 3 Ml Nebu INH 08/03/24 10:04 3 ml PRN PRN Administration SOLN Plan 54 Y/O F with PMHx significant for Downs Syndrome, Schizophrenia,blindness, IBS, presents with chief complaint of AMS, last known normal 9 pm last night, admitted to ICU for septic shock requiring pressors and acute hypoxic respiratory failure requiring intubation. Neuro: #Acute encephalopathy-resolved Multifactorial: hypoxia, S/p shock, electrolytes imbalance Low density areas in both basal ganglia seen on head CT -Neurologist Dr. Jaeger was consulted. -EEG completed-interpreted as abnormal with diffuse slowing suggestive of a diffuse encephalopathy of hypoxic origin per neurology. #Hx Schizophrenia #Hx Depression -Held patient's home medication risperidone 4mg BID, Ziprasidone 60mg BID, and zolpidem 10mg PO HS. -continue with Sertraline 100mg daily Cardio: #Hypotension Patient was treated for septic shock with vasopressors. MAP improved but patient's BP remains low. MAP is above 50. Continue BP support with midodrine. -continue midodrine 5 mg TID -MAP goal > 50 Pulm: #AHRF 08/03 #MSSA pneumonia Patient has history of Down syndrome, risk for aspiration pneumonia. Bacterial and viral pneumonia both possible. Influenza panel negative. MRSA screen negative. Sedated and mechanically ventilated Extubated on 06/24/24, but reintubated on 06/25 Patient extubated for second time, still severely hypoxic, requiring high flow nasal cannula. Patient desatted despite several hours of manual bagging, required reintubation. Tracheostomy performed 07/03/2024 Sputum culture positive for MSSA pneumonia on 06/25 Plan: -continue renaly dosed cefazolin 2 g BID daily #s/p tracheostomy Unable to successfully extubate. Underwent tracheostomy on 07/03 for long-term mechanical ventilation. On 10L oxygen blow by. Plan: -nocturnal ventilation set to previous settings PS mode: PS 5.0, PEEP 8.0, FiO2 50 -During day time, tracheostomy blow-by as tolerated GI: #Severe protein malnutrition #s/p PEG tube placement Patient BMI 14.9. Patient unable to provide history, per caregiver patient has good oral intake most times, has been malnourished for years due to chronic diarrhea, has not had significant weight loss recently. Patient has very little muscle mass, temporal wasting, sunken eyes. GI was consulted and patient underwent PEG tube placement on 07/03. Dietary team was consulted and patient to be started on Vital 1.2 at 10 mL/h. Advance 10 mL every 8 hours to goal rate of 35 mL/h. Plan: -tube feeding goal 35 ml/h -daily labs -monitoring/repleting of potassium, phosphorous, magnesium #Hx IBS Patient history of IBS. Patient had diarrhea for 3 days prior to admission, not unusual for patient. Per caregiver, patient also experiences diarrhea after any food intake. Possible underlying malabsorption (celiac vs pancreatic insufficiency vs lactose deficiency) -Monitor bowel movements -stool osmolarity test pending -Treat metabolic abnormalities as needed Renal: #Contraction alkalosis Possibly due to refeeding syndrome, in setting of diarrhea vs hydrocortisone use. Plan: -decrease fludrocortisone (refer to Endo) -Monitor daily daily potassium and sodium -Continue PEG feeds #Hypokalemia Setting of fludrocortisone therapy for adrenal insufficiency treatment. -Repleted with 40+40+40 mEq today ? Continue to monitor potassium ? Continue to taper fludrocortisone to 0.05 mg every other day Endo: #Adrenal insufficiency Suspect due to chronic malnutrition. Patient arrived with hypotension, hypernatremia. Patient has been hypokalemic despite repletion and bradycardic. Clinical improvement with hydrocortisone followed by worsening when dosage reduced. Patient continues to present with hypokalemia even with yesterday's dose reduction. Continue to wean from 0.1 mg to 0.05 mg daily. Plan: -Decrease fludrocortisone from 0.1 mg to 0.05 mg daily on 07/05 -Received first 0.05mg fludrocortisone dose on 07/06 -Start taper today (07/07) fludrocoristone to 0.05mg every other day -monitor sodium and potassium #Hyperglycemia-resolved Patient had mild hyperglycemia that was uptrending. No history of diabetes. Likely due to steroid treatment. -Started on SSI lispro q6h -Monitor Heme: #Hematomas, resolved Hematomas in bilateral inguinal folds as complications of attempted femoral arterial line placement. Hematomas have resolved, leaving bruises and inguinal folds. -Monitor #Macrocytic anemia Patient hemoglobin 9.2, MCV 114. No previous labs to compare to. No obvious signs of acute bleeding. On 06/23: Hb 6.9, transfused 1 unit PRBC Folate and B12 not depleted. -Monitor and replete for hgb < 7.0 -Patient received 1 unit PRBC today (07/07) ID: #MSSA bacteremia Blood cultures positive for MSSA bacteremia, source likely being MSSA pneumonia. Central line was removed. Blood cultures negative 06/29. New onset fever on 07/02/24, repeat blood cultures also negative after 48 hour read Repeat blood cultures negative Plan: -continue renally dosed cefazolin 2g BID for total of 14 days from time of last negative blood culture. (Finish course Jul 13 2024) #Aspiration Pneumonia #MSSA Pneumonia Patient in acute hypoxic respiratory failure, chest x-ray with left-sided consolidations. -On cefazolin 2 g BID Health maintenance: Diet: Vital tube feeds at 35 ml/hr DVT prophylaxis: Lovenox 30 daily G.I prophylaxis: Pantoprazole Code: Full code Diso: Downgraded to floors, switch to subacute care Patient case discussed with attending physician Dr. Ashley and senior Dr. Chacko. Rand Pisano MD PGY1 Attending Provider Attestation/Addendum Patient seen and examined with above resident, Rand Pisano MD. I agree with the findings, assessment, and plan of care as documented except for any differences below. Patient continues to show gradual improvement overall. Continues to have significant hypokalemia secondary to fludrocortisone which will be further titrated down to every other day now. Plan to taper off completely as her blood pressure remains low but she is adequately perfusing and likely has low blood pressure chronically as we have proven with serial monitoring for lactic acid. Patient without any evidence of active bleeding though she did require transfusion of 1 unit today likely from iatrogenic causes, recurrent need for blood sampling which should also be minimized. Patient with significant MSSA bacteremia and will complete course of cefazolin on July 13. Patient is tolerating tube feeds via PEG tube placed on this admission as well. She continues to have loose stool and we did send workup to exclude presence of malabsorption with stool osmolarity pending at this time. Patient's family as well as caregiver were present at bedside throughout the day were updated on plan of care including transition to the medical carney for ongoing treatment until she ready for subacute care locally as she is now able to tolerate being off mechanical ventilation for extended periods of time though she requires breaks intermittently with just pressure support. I did speak to our subacute and limitations at this point remain for ongoing need for fludrocortisone, which after being tapered, they can reconsider her for placement here locally. Total critical care time: I personally spent 35 minutes for review of physiologic parameters, directing plan of care throughout the day, coordination of care with other specialist, and counseling patient's family/caregiver at bedside. This is exclusive of time spent teaching housestaff or performing any separate billable procedures.
--- NOTE | 2024-07-07 19:30 | ESPR_ITS ---
Documentation for date of: 07/07/24 Subjective Subjective Interval history: Met with the family Explained to them the enteral feeding with vital at 35 cc/h and no gastric residue issues Exam Vital Signs Temp Pulse Resp BP Pulse Ox O2 Del Method O2 Flow Rate 97.8 F 76 17 87/49 L 99 Mechanical Ventilation 10 07/07/24 16:12 07/07/24 18:37 07/07/24 16:12 07/07/24 16:12 07/07/24 18:37 07/07/24 16:12 07/07/24 07:18 FiO2 40 07/07/24 18:37 Routine Abdominal Exam Comments: PEG tube in place No leakage at the PEG site Objective Labs 07/07/24 06:09 07/07/24 06:09 Labs: Laboratory Results - last 24 hr 07/07/24 07/07/24 06:09 10:12 WBC 8.0 RBC 2.04 L Hgb 6.7 L* Hct 21.1 L* MCV 103 H MCH 32.8 MCHC 31.8 RDW Std Deviation 66.2 H Plt Count 228 Neut % (Auto) 87 H Lymph % (Auto) 10 [place] % (Auto) 3 Eos % (Auto) 0 Baso % (Auto) 0 Neut # (Auto) 7.0 Lymph # (Auto) 0.8 L [place] # (Auto) 0.2 Eos # (Auto) 0.0 Baso # (Auto) 0.0 Immature Gran # (Auto) 0.06 H Absolute Nucleated RBC 0.00 Immature Gran % 1 H Nucleated RBC % 0 Sodium 138 Potassium 3.2 L D Chloride 101 Carbon Dioxide 29.4 Anion Gap 8 BUN 13 Creatinine 0.4 L Estim Creat Clear Calc 55.6 L eGFR > 60 BUN/Creatinine Ratio 33 H Glucose 107 H Calculated Osmolality 275 Calcium 7.4 L Corrected Calcium 8.4 L Magnesium 1.7 Total Bilirubin 0.2 L AST 23 ALT < 7 L Alkaline Phosphatase 91 Total Protein 5.4 L Albumin 2.8 L Globulin 2.6 Albumin/Globulin Ratio 1.1 L Blood Type O Positive Antibody Screen NEGATIVE Crossmatch See Detail Blood Bank Wristband ID Yes Impressions Impression: # Failure to thrive # PEG placement for enteral feeding # Enteral hyperalimentation with vital at 35 cc an hour Continue current management ABG Interpretation ABG results: 06/15/24 06/15/24 06/15/24 11:06 14:05 17:00 ABG pH 7.23 L 7.33 L D 7.34 L ABG pCO2 69 H 56 H D 57 H ABG pO2 153 H 67 L D 65 L ABG HCO3 29 H 29 H 30 H ABG O2 Saturation 99 H 92 91 ABG Base Excess 0 3 4 H VBG pH VBG pCO2 VBG pO2 VBG Base Excess 06/16/24 06/17/24 06/18/24 04:04 04:36 04:04 ABG pH 7.35 7.42 7.53 H D ABG pCO2 57 H 54 H 57 H ABG pO2 58 L* 77 L 73 L ABG HCO3 31 H 35 H 47 H ABG O2 Saturation 88 L 96 96 ABG Base Excess 5 H 9 H 22 H VBG pH VBG pCO2 VBG pO2 VBG Base Excess 06/19/24 06/22/24 06/23/24 04:12 17:30 09:55 ABG pH 7.54 H ABG pCO2 50 H ABG pO2 61 L ABG HCO3 42 H ABG O2 Saturation 93 ABG Base Excess 18 H VBG pH 7.46 7.49 VBG pCO2 43 41 VBG pO2 98 H 39 D VBG Base Excess 6 H 7 H 06/25/24 06/26/24 06/27/24 05:04 12:08 04:54 ABG pH 7.47 H 7.48 H ABG pCO2 43 45 ABG pO2 60 L 41 L* ABG HCO3 31 H 34 H ABG O2 Saturation 92 77 L ABG Base Excess 6 H 9 H VBG pH 7.43 VBG pCO2 47 VBG pO2 35 VBG Base Excess 6 H 06/27/24 06/28/24 06/28/24 06:23 04:27 13:19 ABG pH 7.47 H 7.55 H ABG pCO2 46 41 ABG pO2 157 H D 78 L D ABG HCO3 34 H 36 H ABG O2 Saturation 100 H 98 ABG Base Excess 9 H 13 H VBG pH 7.56 VBG pCO2 41 VBG pO2 41 VBG Base Excess 13 H 06/29/24 07/01/24 07/02/24 15:15 06:59 05:03 ABG pH 7.39 7.55 H D ABG pCO2 67 H 41 D ABG pO2 80 L 99 ABG HCO3 41 H 36 H ABG O2 Saturation 95 99 H ABG Base Excess 13 H 12 H VBG pH 7.61 VBG pCO2 40 VBG pO2 76 H D VBG Base Excess 18 H 07/04/24 07/05/24 07/06/24 07:54 04:02 04:15 ABG pH 7.50 H 7.49 H 7.49 H ABG pCO2 40 45 45 ABG pO2 70 L D 63 L 108 D ABG HCO3 31 H 34 H 34 H ABG O2 Saturation 96 94 99 H ABG Base Excess 8 H 9 H 9 H VBG pH VBG pCO2 VBG pO2 VBG Base Excess Assessment & Plan A&P Narrative # Failure to thrive Plan Consent will be obtained from the appropriate authorities for placement of a PEG tube insertion under intravenous moderate sedation via fiberoptic esophageal gastroduodenoscopy Will follow the patient Other medical problems include # Acute hypoxic respiratory failure requiring endotracheal intubation and mechanical ventilation # Altered mental status # Schizophrenia # Clinically blind Thank you very much for the opportunity to participate in the care of this patient Time Spent With Patient Time: Total time spent is greater than 50% in coordination of care (as documented) at patient's floor/unit and/or counseling patient: Procedures Arterial Line Size (Gauge): 20
--- NOTE | 2024-07-07 20:04 | PD.RESEVENT ---
Documentation for date of: 07/07/24 Event Note Event Note: Patient is a 54 year old female with a past medical history significant for Downs Syndrome, Schizophrenia, blindness, IBS, and hyperlipidemia who presented to [facility] on 06[facility]/24 with chief complaint of altered mental status. In the emergency department patient was found to have acute hypoxic respiratory failure requiring intubation and septic shock requiring pressor support. Patient was admitted to ICU. In the ICU patient was found to have MSSA Pneumonia and bacteremia and has been receiving IV antibiotics. Patient was unfortunately unable to be weaned from ventilator and underwent tracheostomy and PEG tube placement. Patient is on goal rate tube feds via PEG and on MV via trach at nighttime and blow-by during the day. Patient is also suspected of having adrenal insufficiency and undergoing fludrocortisone taper. Team B will resume care 07/08/23. Assessment and plan discussed with my senior resident Dr Ogden. & attending physician Dr Ortega. Dr. Tran (PGY-1)- Internal medicine resident
[2024-07-07] MEDS: ATORVASTATIN CALCIUM 20 MG TABLET 40 MG PO (21:07)
--- NOTE | 2024-07-07 23:20 | ESPR_ITS ---
Documentation for date of: 07/07/24 Subjective Subjective Interval history: Patient was seen in telemetry today with her sister at the bedside. She had significant improvement in mental status and overall condition to the point of able to communicate despite the hearing loss. Exam - Neurology Vital Signs Temp Pulse Resp BP Pulse Ox O2 Del Method O2 Flow Rate 98.4 F 69 20 79/53 L 98 Mechanical Ventilation 10 07/07/24 21:36 07/07/24 21:36 07/07/24 21:36 07/07/24 21:36 07/07/24 21:36 07/07/24 19:10 07/07/24 19:10 FiO2 40 07/07/24 19:10 Narrative Exam GENERAL APPEARANCE: Thin built, emaciated with features of Down syndrome, trached. HEENT: Normocephalic, atraumatic, extraocular movements intact. Pupils: Equal reacting to light NECK: Supple, no JVD or bruits. CARDIOVASULAR: Heart: S1, S2 heard, regular without S3-S4 or murmur no rubs or gallops. LUNGS/CHEST: Clear to auscultation bilaterally. No rails, rhonchi, or wheezing. Normal inspection. ABDOMEN: Soft, nontender, with normal bowel sounds. No pulsatile masses. No rebound, rigidity, or guarding. Normal inspection and palpation. EXTREMITIES: Normal inspection and palpation. No edema, clubbing or cyanosis. SKIN: Warm and dry without rashes. Normal inspection. MUSCULOSKELETAL: No cervical, thoracic, lumbar or midline bony tenderness. Normal inspection. NEURO: Alert, awake and oriented x1. Cranial nerves: II through XII grossly intact. Able to verbalize when her sister talk to her louder in her left ear. motor system: Tone and bulk: Normal: Strength: Moves all 4 extremities purposefully; No pronator drift noted. Rest of exam: Limited. no signs of meningeal irritation noted. PSYCHIATRIC: Limited Objective Labs 07/08/24 04:59 07/07/24 06:09 Labs: Laboratory Results - last 24 hr 07/07/24 07/07/24 06:09 10:12 WBC 8.0 RBC 2.04 L Hgb 6.7 L* Hct 21.1 L* MCV 103 H MCH 32.8 MCHC 31.8 RDW Std Deviation 66.2 H Plt Count 228 Neut % (Auto) 87 H Lymph % (Auto) 10 [place] % (Auto) 3 Eos % (Auto) 0 Baso % (Auto) 0 Neut # (Auto) 7.0 Lymph # (Auto) 0.8 L [place] # (Auto) 0.2 Eos # (Auto) 0.0 Baso # (Auto) 0.0 Immature Gran # (Auto) 0.06 H Absolute Nucleated RBC 0.00 Immature Gran % 1 H Nucleated RBC % 0 Sodium 138 Potassium 3.2 L D Chloride 101 Carbon Dioxide 29.4 Anion Gap 8 BUN 13 Creatinine 0.4 L Estim Creat Clear Calc 55.6 L eGFR > 60 BUN/Creatinine Ratio 33 H Glucose 107 H Calculated Osmolality 275 Calcium 7.4 L Corrected Calcium 8.4 L Magnesium 1.7 Total Bilirubin 0.2 L AST 23 ALT < 7 L Alkaline Phosphatase 91 Total Protein 5.4 L Albumin 2.8 L Globulin 2.6 Albumin/Globulin Ratio 1.1 L Blood Type O Positive Antibody Screen NEGATIVE Crossmatch See Detail Blood Bank Wristband ID Yes ABG Interpretation ABG results: 06/15/24 06/15/24 06/15/24 11:06 14:05 17:00 ABG pH 7.23 L 7.33 L D 7.34 L ABG pCO2 69 H 56 H D 57 H ABG pO2 153 H 67 L D 65 L ABG HCO3 29 H 29 H 30 H ABG O2 Saturation 99 H 92 91 ABG Base Excess 0 3 4 H VBG pH VBG pCO2 VBG pO2 VBG Base Excess 06/16/24 06/17/24 06/18/24 04:04 04:36 04:04 ABG pH 7.35 7.42 7.53 H D ABG pCO2 57 H 54 H 57 H ABG pO2 58 L* 77 L 73 L ABG HCO3 31 H 35 H 47 H ABG O2 Saturation 88 L 96 96 ABG Base Excess 5 H 9 H 22 H VBG pH VBG pCO2 VBG pO2 VBG Base Excess 06/19/24 06/22/24 06/23/24 04:12 17:30 09:55 ABG pH 7.54 H ABG pCO2 50 H ABG pO2 61 L ABG HCO3 42 H ABG O2 Saturation 93 ABG Base Excess 18 H VBG pH 7.46 7.49 VBG pCO2 43 41 VBG pO2 98 H 39 D VBG Base Excess 6 H 7 H 06/25/24 06/26/24 06/27/24 05:04 12:08 04:54 ABG pH 7.47 H 7.48 H ABG pCO2 43 45 ABG pO2 60 L 41 L* ABG HCO3 31 H 34 H ABG O2 Saturation 92 77 L ABG Base Excess 6 H 9 H VBG pH 7.43 VBG pCO2 47 VBG pO2 35 VBG Base Excess 6 H 06/27/24 06/28/24 06/28/24 06:23 04:27 13:19 ABG pH 7.47 H 7.55 H ABG pCO2 46 41 ABG pO2 157 H D 78 L D ABG HCO3 34 H 36 H ABG O2 Saturation 100 H 98 ABG Base Excess 9 H 13 H VBG pH 7.56 VBG pCO2 41 VBG pO2 41 VBG Base Excess 13 H 06/29/24 07/01/24 07/02/24 15:15 06:59 05:03 ABG pH 7.39 7.55 H D ABG pCO2 67 H 41 D ABG pO2 80 L 99 ABG HCO3 41 H 36 H ABG O2 Saturation 95 99 H ABG Base Excess 13 H 12 H VBG pH 7.61 VBG pCO2 40 VBG pO2 76 H D VBG Base Excess 18 H 07/04/24 07/05/24 07/06/24 07:54 04:02 04:15 ABG pH 7.50 H 7.49 H 7.49 H ABG pCO2 40 45 45 ABG pO2 70 L D 63 L 108 D ABG HCO3 31 H 34 H 34 H ABG O2 Saturation 96 94 99 H ABG Base Excess 8 H 9 H 9 H VBG pH VBG pCO2 VBG pO2 VBG Base Excess Assessment & Plan Assessment and plan (1) Acute respiratory failure with hypoxia: Status: Acute Assessment and plan: Stable status post tracheostomy Maintaining oxygen saturation (2) Altered mental status: Status: Acute Assessment and plan: Significant improvement noted Continue with the current management Procedures Arterial Line Size (Gauge): 20
[2024-07-08] VITALS (16 sets, daily range): BP systolic 77–89; BP diastolic 47–62; PULSE 61–95; RESP 12–23; TEMP 36.2–37; O2SAT 93–100; BMI 14.3
[2024-07-08] MEDS: INSULIN LISPRO (AdmeLOG) 1 UNIT/0.01 ML UNIT SC ×2 (00:50→12:23)
[2024-07-08 01:44] LABS: Hematocrit 24.4 % (36.0-46.0)
[2024-07-08 04:23] LABS: Hemoglobin 8.1 g/dL (12.0-16.0)
[2024-07-08] MEDS: MIDODRINE 5 MG TABLET PO (05:08)
[2024-07-08 05:36] LABS: Basophils % (Auto) 0 % (0-2.5); Eosinophils % (Auto) 0 % (0-10); Hematocrit 25.4 % (36.0-46.0); Immature Granulocytes % (Auto) 1 % (0-0); Immature Granulocytes Auto 0.04 Thou/mm3 (0.00-0.00); Lymphocytes # (Auto) 0.8 Thou/mm3 (1.0-4.8); Lymphocytes % (Auto) 13 % (10-50); Mean Corpuscular HGB Conc 33.1 g/dl (31.0-37.0); Mean Corpuscular Hemoglobin 31.9 pg (25.0-35.0); Mean Corpuscular Volume 97 fL (80-100); Monocytes # (Auto) 0.2 Thou/mm3 (0.0-0.8); Monocytes % (Auto) 3 % (0-12); Neutrophils # (Auto) 5.1 Thou/mm3 (1.8-7.7); Neutrophils % (Auto) 82 % (37-80); Nucleated Red Blood Cell % 0 /100 WBC (0); Platelet Count 251 Thou/mm3 (140-440); RDW Standard Deviation 63.5 fL (36.4-46.3); Red Blood Count 2.63 Miln/mm3 (4.00-5.20); White Blood Count 6.2 Thou/mm3 (3.6-11.0)
[2024-07-08 05:39] LABS: Hemoglobin 8.4 g/dL (12.0-16.0)
[2024-07-08 06:28] LABS: Alanine Aminotransferase 9 U/L (10-49); Albumin, Serum 2.9 gm/dL (3.5-5.0); Albumin/Globulin Ratio 1.1 (1.2-2.2); Alkaline Phosphatase 152 U/L (46-116); Anion Gap 6 (7-16); Aspartate Amino Transferase 32 U/L (0-34); BUN/Creatinine Ratio 35 Ratio (12-20); Bilirubin,Total 0.3 mg/dL (0.3-1.2); Blood Urea Nitrogen 14 mg/dL (9-23); Calcium 7.6 mg/dL (8.3-10.6); Calcium (Corrected) 8.5 mg/dL (8.5-10.1); Carbon Dioxide 28.9 mMol/L (20.0-31.0); Chloride 102 mMol/L (98-107); Creatinine (Component) 0.4 mg/dL (0.6-1.3); Estimated Creatinine Clearance 55.6 mL/min (>60); Globulin 2.7 gm/dL (2.3-3.5); Glucose 96 mg/dL (74-106); Magnesium 1.9 mg/dL (1.6-2.6); Osmolality,Calculated 274 (275-295); Phosphorous 2.3 mg/dL (2.4-5.1); Potassium 4.5 mMol/L (3.4-5.1); Sodium 137 mMol/L (136-145); Total Protein 5.6 gm/dL (5.7-8.2); eGFR > 60 See Note
[2024-07-08] MEDS: ALBUTEROL RT 2.5 MG/0.5 ML NEBU INH ×3 (07:33→22:04)
[2024-07-08] MEDS: SODIUM CHLORIDE RT SOL 0.9% 3 ML NEBU INH ×3 (07:34→22:04)
[2024-07-08] MEDS: Ferrous Sulfate 300 MG/5 ML UDC NG (09:53)
[2024-07-08] MEDS: MULTIVITAMIN 15 ML UDC NG (09:53)
[2024-07-08] MEDS: PANTOPRAZOLE INJ 40 MG VIAL IVP (09:53)
[2024-07-08] MEDS: ENOXAPARIN SOD INJ 30 MG/0.3 ML SYRINGE SC (09:54)
[2024-07-08] MEDS: CALCIUM CARBONATE 600 MG TABLET NG (09:54)
[2024-07-08] MEDS: ASPIRIN 81 MG CHEW PO (09:54)
[2024-07-08] MEDS: NAPH,KPH MBDB 1 PACKET (1.5 GM) PO ×2 (09:54→20:53)
[2024-07-08] MEDS: SIMETHICONE 40 MG/0.6 ML ORAL SYRINGE GT ×2 (09:54→20:53)
[2024-07-08] MEDS: ceFAZolin/D5W 2 GM IV 2 GM/100 ML BAG IV ×2 (09:54→20:53)
[2024-07-08] MEDS: FLUDROCORTISONE ACETATE 0.1 MG TABLET 0.05 MG PO (09:56)
[2024-07-08] MEDS: SERTRALINE HCL 25 MG TABLET 100 MG NG (10:25)
[2024-07-08] MEDS: SODIUM CHLORIDE 0.9% 500 ML 500 ML 999 ML IV (11:08)
[2024-07-08] MEDS: MIDODRINE 5 MG TABLET 10 MG GT ×2 (13:19→21:02)
--- NOTE | 2024-07-08 13:56 | ESDS_ITS ---
Planned Discharge Date 07/08/24 DS: Providers Provider Date of admission: 06/15/24 14:54 Primary care physician: Jayce Muñiz MD Admitting Provider: Tonja Alexander MD Attending Provider on Admission: Lita Ortega MD Consults: 06/15/24 19:02 Referral Wound Care Routine Comment: 06/16/24 09:48 Referral Registered Dietitian Routine Comment: High protein diet 06/21/24 20:09 Consult to Neurology / Tele-Neurology Routine Comment: Consulting Provider: Rob Jaeger 07/01/24 10:34 Consult to General Surgery Urgent Comment: Consulting Provider: Gabi Titus 07/01/24 10:55 Consult to Gastroenterology Routine Comment: Consulting Provider: Mickie Bronson Attending Provider on DC: James Tran MD Discharging Provider: James Tran MD DS: Diagnosis Problem List Completed Was Problem List Reviewed/Reconciled?: Yes Hospital Course Hospital Course Hospital course: Ms. Wilson is a 54 year old female with a past medical history significant for Downs Syndrome, Schizophrenia, blindness, IBS, and hyperlipidemia who presented to [facility] ED on 06/15/24 after the caregiver found her unresponsive at home.Per caregiver patient had a cough for about five days, noted sore throat and diarrhea for 3 days, which is not uncommon for patient due to IBS. In the emergency department patient was found to have altered mental status with low GCS and found to have hypoxia with O2 sat 60% as well as hypotensive for which Pt received a dose epinephrine. Patient had CODE BLUE, with 1 dose of epi before ROSC. With continued hypoxic respiratory failure Pt. required intubation and mechanical ventilation. Pt was admitted to the ICU because of septic shock requiring pressor support as well. In the ICU patient was found to have MSSA Pneumonia and bacteremia and has been receiving IV antibiotics. Pt was extubated on 06/21/24 but was unable to protect her airways and reintubated on just after several hours. Patient was unfortunately unable to be weaned from ventilator and underwent tracheostomy and PEG tube placement on 07/03/24. Patient is at goal rate tube feds via PEG and on Mechanical ventilation via trach at nighttime and blow-by during the day. Patient is also suspected of having adrenal insufficiency and undergoing fludrocortisone taper and Midodrine is added for low blood pressure. Pt. is off pressor support for hypotension, shock is resolved and antibiotic coarse is complete. Pt is hemodynamically stable to be discharge to subacute for continued care. Patient is discharged to subacute facility of [facility]. Antibiotics to be continued through July 13 for bacteremia and pneumonia. Patient is being discharged up on midodrine 10 mg 3 times daily and fludrocortisone. We recommend to continue with these medications to maintain adequate blood pressure. Likely patient has some degree of adrenal insufficiency and does not require a tapering from fludrocortisone and can continue with this medication going forward. We also recommend not to follow a MAP goal above 65 due to the patient's overall frail appearance and thin body habitus weighing close to 50 pounds patient likely will have chronic hypotension and maintain adequate circulation at lower MAP targets. Recommend lactic acid for assessment of patient's hyperperfusion state and if lactic acid is within normal range patient's blood pressure will not require pressor support. #AHRF 2/2 #Aspiration Pneumonia #MSSA bacteremia #s/p tracheostomy #Macrocytic anemia #Hypotension #Septic Shock #Hx Schizophrenia #Hx Depression #Acute encephalopathy-resolved #Adrenal insufficiency #Hypokalemia #Hx IBS #Severe protein malnutrition #s/p PEG tube placement Assessment and plan discussed with my senior resident Dr. Humphrey & attending physician Dr. Shannon Tran (PGY-1)- Internal medicine resident. Time Spent with Patient Time attestation: Total time spent providing and/or coordinating discharge services: Exam Vital Signs Temp Pulse Resp BP Pulse Ox O2 Del Method O2 Flow Rate 97.8 F 62 13 87/62 L 93 L Blow-by 6 07/08/24 12:00 07/08/24 13:19 07/08/24 12:00 07/08/24 13:19 07/08/24 12:00 07/08/24 12:07/08/24 12:00 FiO2 28 07/08/24 12:00 Discharge Plan Plan Patient Disposition: Xfer Skilled Nsg Fac (SNF) Disposition Comment: To be admitted to ICU for critical care Care Plan Goals: Patient is discharged to subacute facility of [facility]. Antibiotics to be continued through July 13 for bacteremia and pneumonia. Patient is being discharged up on midodrine 10 mg 3 times daily and fludrocortisone. We recommend to continue with these medications to maintain adequate blood pressure. Likely patient has some degree of adrenal insufficiency and does not require a tapering from fludrocortisone and can continue with this medication going forward. We also recommend not to follow a MAP goal above 65 due to the patient's overall frail appearance and thin body habitus weighing close to 50 pounds patient likely will have chronic hypotension and maintain adequate circulation at lower MAP targets. Recommend lactic acid for assessment of patient's hyperperfusion state and if lactic acid is within normal range patient's blood pressure will not require pressor support. Prescriptions/Referrals Prescriptions/Med Rec: New acetaminophen 650 mg Suppository 650 mg MT Q4HR PRN (Reason: Pain Scale 1-3 (Mild) 30 Days Qty: 60 0RF atorvastatin 20 mg Tablet 40 mg PO HS 30 Days Qty: 60 0RF calcium carbonate 600 mg calcium (1,500 mg) Tablet 600 mg NG QDAY 30 Days Qty: 30 0RF aspirin [Children's Aspirin] 81 mg Tablet,Chewable 81 mg PO QDAY 30 Days Qty: 30 0RF albuterol sulfate 2.5 mg/0.5 mL Solution For Nebulization 2.5 mg INH Q8HRRT 30 Days Qty: 30 0RF acetaminophen 325 mg/10.15 mL Solution 650 mg NG Q4HR PRN (Reason: Pain Or Fever > 100.4) 30 Days Qty: 60 0RF ferrous sulfate 300 mg (60 mg iron)/5 mL Liquid 300 mg NG QDAY Qty: 120 0RF enoxaparin 30 mg/0.3 mL Syringe 30 mg SCi QDAY 30 Days Qty: 9 0RF dextrose 50 % in water (D50W) Syringe 25 ml IV Q15MIN PRN (Reason: BG 50-70 responsive npo pt) 30 Days Qty: 30 0RF dextrose 50 % in water (D50W) Syringe 50 ml IV Q15MIN PRN (Reason: BG <50 OR BG <70 & pt unresponsive) 30 Days Qty: 30 0RF cefazolin in dextrose (iso-os) 2 gram/100 mL Piggyback 100 ml IV Q12HR 5 Days Qty: 1200 0RF fludrocortisone 0.1 mg Tablet 0.05 mg PO Q48H 30 Days Qty: 8 0RF glucagon HCl 1 mg/mL Recon Soln 1 mg IM Q15MIN PRN (Reason: BG <70, and no IV access) Qty: 10 0RF midodrine 5 mg Tablet 10 mg G-tube TID 30 Days Qty: 180 0RF magnesium hydroxide [Milk of Magnesia] 400 mg/5 mL Suspension 30 ml NG QDAY PRN (Reason: Constipation) 30 Days Qty: 5 0RF morphine 10 mg/mL Solution 2 mg IVP Q4HR MDD 8 mg PRN (Reason: Pain 4-10 or distress) 30 Days Qty: 30 0RF alum-mag hydroxide-simeth [Mag-Al Plus] 200-200-20 mg/5 mL Suspension 30 ml NG Q4HR PRN (Reason: Heartburn or Upset Stomach) 30 Days Qty: 30 0RF insulin lispro [Admelog U-100 Insulin lispro] 100 unit/mL Solution 0 unit SCi Q6HR 30 Days Qty: 30 0RF [id number]-[id number] gluconate 12 mg iron/15 mL Liquid 15 ml NG QDAY Qty: 6000 0RF potassium, sodium phosphates [Phos-NaK] 280-160-250 mg Powder In Packet 1 packet PO BID Qty: 100 0RF pantoprazole 40 mg Recon Soln 40 mg IVP QDAY 30 Days Qty: 30 0RF sodium chloride 0.9 % Solution For Nebulization 3 ml INH PRN PRN (Reason: Soln) Qty: 90 0RF Infants' Gas Relief 40 mg/0.6 mL Syringe 40 mg G-tube BID 30 Days Qty: 120 0RF Pharmacy To Consult Pneumovacc [Pharmacy To Consult Patient] 1 ea .Route PRN PRN (Reason: vancomycin) 30 Days 0RF Rx Instructions: .Route Continued risperidone 4 mg Tablet 4 mg PO BID sertraline 100 mg Tablet 100 mg PO QDAY gemfibrozil 600 mg Tablet 600 mg PO BID zolpidem 10 mg Tablet 10 mg PO HS ziprasidone HCl 60 mg Capsule 60 mg PO BID Rx Instructions: give with food (meal/snack) Referrals: Jayce Muñiz MD [Primary Care Provider] - Patient/Caregiver Discharge Instructions Print Language: Luxembourgish Stand Alone Forms: Gloria Award Info., Patient Portal Info Letter Discharge Order Discharge Orders: Discharge (Routine); Ordered 07/08/24 Ordered By: Singh Ogden Quality Discharge Quality Measures VTE prophylaxis
--- NOTE | 2024-07-08 16:27 | PC.SS ---
Level II Mental Health Evaluation referral is not required due to a Categorical Condition. A Categorical letter will be available from your Level I Case list after a brief review by the [facility] contractor. JOHNATHAN spoke to Tania from [facility] who explained Dr. Crawley is requesting to speak with physicians before accepting pt. Resident physicians attempted to call Dr. Crawley but were only able to leave voicemail. JOHNATHAN provided Tania with resident physicians ext to provide Dr. Ann.
--- NOTE | 2024-07-08 17:50 | ESPR_ITS ---
Documentation for date of: 07/08/24 Subjective Subjective Interval history: Patient evaluated Enteral hyperalimentation rate of 35 cc an hour doing well She is also on water flushes 50 cc every 6 hours Exam Vital Signs Temp Pulse Resp BP Pulse Ox O2 Del Method O2 Flow Rate 97.8 F 66 18 87/62 L 99 Blow-by 6 07/08/24 12:00 07/08/24 14:52 07/08/24 14:52 07/08/24 13:19 07/08/24 14:52 07/08/24 12:00 07/08/24 14:52 FiO2 28 07/08/24 14:52 Routine Respiratory Exam Comments: Normal to auscultation Routine Abdominal Exam Comments: Soft nontender PEG tube in place and no drainage Objective Labs 07/08/24 04:59 07/08/24 04:59 Labs: Laboratory Results - last 24 hr 07/07/24 07/08/24 07/08/24 10:12 01:15 04:59 WBC 6.2 RBC 2.63 L Hgb 8.1 L D 8.4 L Hct 24.4 L 25.4 L MCV 97 MCH 31.9 MCHC 33.1 RDW Std Deviation 63.5 H Plt Count 251 Neut % (Auto) 82 H Lymph % (Auto) 13 Mccracken % (Auto) 3 Eos % (Auto) 0 Baso % (Auto) 0 Neut # (Auto) 5.1 Lymph # (Auto) 0.8 L Mccracken # (Auto) 0.2 Eos # (Auto) 0.0 Baso # (Auto) 0.0 Immature Gran # (Auto) 0.04 H Absolute Nucleated RBC 0.00 Immature Gran % 1 H Nucleated RBC % 0 Sodium 137 Potassium 4.5 D Chloride 102 Carbon Dioxide 28.9 Anion Gap 6 L BUN 14 Creatinine 0.4 L Estim Creat Clear Calc 55.6 L eGFR > 60 BUN/Creatinine Ratio 35 H Glucose 96 Calculated Osmolality 274 L Calcium 7.6 L Corrected Calcium 8.5 Phosphorus 2.3 L Magnesium 1.9 Total Bilirubin 0.3 AST 32 ALT 9 L Alkaline Phosphatase 152 H D Total Protein 5.6 L Albumin 2.9 L Globulin 2.7 Albumin/Globulin Ratio 1.1 L Blood Type O Positive Antibody Screen NEGATIVE Crossmatch See Detail Blood Bank Wristband ID Yes Impressions Impression: # Failure to thrive # Enteral hyperalimentation through the PEG tube ABG Interpretation ABG results: 06/15/24 06/15/24 06/15/24 11:06 14:05 17:00 ABG pH 7.23 L 7.33 L D 7.34 L ABG pCO2 69 H 56 H D 57 H ABG pO2 153 H 67 L D 65 L ABG HCO3 29 H 29 H 30 H ABG O2 Saturation 99 H 92 91 ABG Base Excess 0 3 4 H VBG pH VBG pCO2 VBG pO2 VBG Base Excess 06/16/24 06/17/24 06/18/24 04:04 04:36 04:04 ABG pH 7.35 7.42 7.53 H D ABG pCO2 57 H 54 H 57 H ABG pO2 58 L* 77 L 73 L ABG HCO3 31 H 35 H 47 H ABG O2 Saturation 88 L 96 96 ABG Base Excess 5 H 9 H 22 H VBG pH VBG pCO2 VBG pO2 VBG Base Excess 06/19/24 06/22/24 06/23/24 04:12 17:30 09:55 ABG pH 7.54 H ABG pCO2 50 H ABG pO2 61 L ABG HCO3 42 H ABG O2 Saturation 93 ABG Base Excess 18 H VBG pH 7.46 7.49 VBG pCO2 43 41 VBG pO2 98 H 39 D VBG Base Excess 6 H 7 H 06/25/24 06/26/24 06/27/24 05:04 12:08 04:54 ABG pH 7.47 H 7.48 H ABG pCO2 43 45 ABG pO2 60 L 41 L* ABG HCO3 31 H 34 H ABG O2 Saturation 92 77 L ABG Base Excess 6 H 9 H VBG pH 7.43 VBG pCO2 47 VBG pO2 35 VBG Base Excess 6 H 06/27/24 06/28/24 06/28/24 06:23 04:27 13:19 ABG pH 7.47 H 7.55 H ABG pCO2 46 41 ABG pO2 157 H D 78 L D ABG HCO3 34 H 36 H ABG O2 Saturation 100 H 98 ABG Base Excess 9 H 13 H VBG pH 7.56 VBG pCO2 41 VBG pO2 41 VBG Base Excess 13 H 06/29/24 07/01/24 07/02/24 15:15 06:59 05:03 ABG pH 7.39 7.55 H D ABG pCO2 67 H 41 D ABG pO2 80 L 99 ABG HCO3 41 H 36 H ABG O2 Saturation 95 99 H ABG Base Excess 13 H 12 H VBG pH 7.61 VBG pCO2 40 VBG pO2 76 H D VBG Base Excess 18 H 07/04/24 07/05/24 07/06/24 07:54 04:02 04:15 ABG pH 7.50 H 7.49 H 7.49 H ABG pCO2 40 45 45 ABG pO2 70 L D 63 L 108 D ABG HCO3 31 H 34 H 34 H ABG O2 Saturation 96 94 99 H ABG Base Excess 8 H 9 H 9 H VBG pH VBG pCO2 VBG pO2 VBG Base Excess Assessment & Plan A&P Narrative # Failure to thrive Plan Consent will be obtained from the appropriate authorities for placement of a PEG tube insertion under intravenous moderate sedation via fiberoptic esophageal gastroduodenoscopy Will follow the patient Other medical problems include # Acute hypoxic respiratory failure requiring endotracheal intubation and mechanical ventilation # Altered mental status # Schizophrenia # Clinically blind Thank you very much for the opportunity to participate in the care of this patient Time Spent With Patient Time: Total time spent is greater than 50% in coordination of care (as documented) at patient's floor/unit and/or counseling patient: Procedures Arterial Line Size (Gauge): 20
[2024-07-08] MEDS: ATORVASTATIN CALCIUM 20 MG TABLET 40 MG PO (20:53)
[2024-07-09] VITALS (19 sets, daily range): BP systolic 81–108; BP diastolic 53–72; PULSE 64–85; RESP 11–20; TEMP 36.1–36.6; O2SAT 97–99; BMI 14.3
[2024-07-09] MEDS: MIDODRINE 5 MG TABLET 10 MG GT ×3 (05:38→21:37)
[2024-07-09] MEDS: SODIUM CHLORIDE RT SOL 0.9% 3 ML NEBU INH ×3 (07:14→22:53)
[2024-07-09] MEDS: ALBUTEROL RT 2.5 MG/0.5 ML NEBU INH ×3 (07:14→22:53)
[2024-07-09] MEDS: PANTOPRAZOLE INJ 40 MG VIAL IVP (09:30)
[2024-07-09] MEDS: MULTIVITAMIN 15 ML UDC NG (09:30)
[2024-07-09] MEDS: SERTRALINE HCL 25 MG TABLET 100 MG NG (09:30)
[2024-07-09] MEDS: ENOXAPARIN SOD INJ 30 MG/0.3 ML SYRINGE SC (09:30)
[2024-07-09] MEDS: Ferrous Sulfate 300 MG/5 ML UDC NG (09:30)
[2024-07-09] MEDS: CALCIUM CARBONATE 600 MG TABLET NG (09:31)
[2024-07-09] MEDS: ceFAZolin/D5W 2 GM IV 2 GM/100 ML BAG IV ×3 (09:31→21:37)
[2024-07-09] MEDS: NAPH,KPH MBDB 1 PACKET (1.5 GM) PO ×2 (09:31→20:36)
[2024-07-09] MEDS: ASPIRIN 81 MG CHEW PO (09:31)
[2024-07-09] MEDS: SIMETHICONE 40 MG/0.6 ML ORAL SYRINGE GT ×2 (09:31→20:36)
--- NOTE | 2024-07-09 09:33 | PC.SS ---
Addendum entered by Jennifer Lara 07/09/24 10:44: SS has expanded the search for Subacute Placement using [facility]. Addendum entered by Jennifer Lara 07/09/24 09:50: SS has sent updated inquiry to [facility] using [facility], per Mary's request. Original Note: Follow up note: Pt is not from [facility]. SS spoke to Mary at [facility] who is aware physician residents are requesting to speak with Dr. Crawley and provided her with their phone ext. Per Mary, patient's blood pressure is not stable and has to be at normal limits of 110. Cath is aware PASRR assessment has been done. [facility] has not accept pt and they are reviewing patient's information
--- NOTE | 2024-07-09 10:41 | CHAP ---
Patient was visited by a Spiritual Care Volunteer on 07/09/2024 between 0900 and 1036 and received comfort, encouragement and/or prayer.
--- NOTE | 2024-07-09 11:02 | PD.IMPROG ---
Documentation for date of: 07/09/24 Subjective Subjective Interval history: Tolerating vital formulation as a part of enteral hyperalimentation 35 cc an hour that is the maximum rate recommended Doing well No nausea vomiting Exam Vital Signs Temp Pulse Resp BP Pulse Ox O2 Del Method O2 Flow Rate 97.2 F 66 18 98/65 98 Mechanical Ventilation 6 07/09/24 08:00 07/09/24 08:00 07/09/24 08:00 07/09/24 08:00 07/09/24 08:00 07/09/24 08:00 07/09/24 07:15 FiO2 28 07/09/24 08:00 Constitutional Comments: Chronically ill-appearing Routine Respiratory Exam Comments: Normal to auscultation Routine Abdominal Exam Comments: Soft nontender PEG tube in place Objective Labs 07/08/24 04:59 07/08/24 04:59 Impressions Impression: # Failure to thrive # enteral hyperalimentation through the newly placed PEG tube Continue current management ABG Interpretation ABG results: 06/15/24 06/15/24 06/15/24 11:06 14:05 17:00 ABG pH 7.23 L 7.33 L D 7.34 L ABG pCO2 69 H 56 H D 57 H ABG pO2 153 H 67 L D 65 L ABG HCO3 29 H 29 H 30 H ABG O2 Saturation 99 H 92 91 ABG Base Excess 0 3 4 H VBG pH VBG pCO2 VBG pO2 VBG Base Excess 06/16/24 06/17/24 06/18/24 04:04 04:36 04:04 ABG pH 7.35 7.42 7.53 H D ABG pCO2 57 H 54 H 57 H ABG pO2 58 L* 77 L 73 L ABG HCO3 31 H 35 H 47 H ABG O2 Saturation 88 L 96 96 ABG Base Excess 5 H 9 H 22 H VBG pH VBG pCO2 VBG pO2 VBG Base Excess 06/19/24 06/22/24 06/23/24 04:12 17:30 09:55 ABG pH 7.54 H ABG pCO2 50 H ABG pO2 61 L ABG HCO3 42 H ABG O2 Saturation 93 ABG Base Excess 18 H VBG pH 7.46 7.49 VBG pCO2 43 41 VBG pO2 98 H 39 D VBG Base Excess 6 H 7 H 06/25/24 06/26/2406/27/24 05:04 12:08 04:54 ABG pH 7.47 H 7.48 H ABG pCO2 43 45 ABG pO2 60 L 41 L* ABG HCO3 31 H 34 H ABG O2 Saturation 92 77 L ABG Base Excess 6 H 9 H VBG pH 7.43 VBG pCO2 47 VBG pO2 35 VBG Base Excess 6 H 06/27/24 06/28/24 06/28/24 06:23 04:27 13:19 ABG pH 7.47 H 7.55 H ABG pCO2 46 41 ABG pO2 157 H D 78 L D ABG HCO3 34 H 36 H ABG O2 Saturation 100 H 98 ABG Base Excess 9 H 13 H VBG pH 7.56 VBG pCO2 41 VBG pO2 41 VBG Base Excess 13 H 06/29/24 07/01/24 07/02/24 15:15 06:59 05:03 ABG pH 7.39 7.55 H D ABG pCO2 67 H 41 D ABG pO2 80 L 99 ABG HCO3 41 H 36 H ABG O2 Saturation 95 99 H ABG Base Excess 13 H 12 H VBG pH 7.61 VBG pCO2 40 VBG pO2 76 H D VBG Base Excess 18 H 07/04/24 07/05/24 07/06/24 07:54 04:02 04:15 ABG pH 7.50 H 7.49 H 7.49 H ABG pCO2 40 45 45 ABG pO2 70 L D 63 L 108 D ABG HCO3 31 H 34 H 34 H ABG O2 Saturation 96 94 99 H ABG Base Excess 8 H 9 H 9 H VBG pH VBG pCO2 VBG pO2 VBG Base Excess Assessment & Plan A&P Narrative # Failure to thrive Plan Consent will be obtained from the appropriate authorities for placement of a PEG tube insertion under intravenous moderate sedation via fiberoptic esophageal gastroduodenoscopy Will follow the patient Other medical problems include # Acute hypoxic respiratory failure requiring endotracheal intubation and mechanical ventilation # Altered mental status # Schizophrenia # Clinically blind Thank you very much for the opportunity to participate in the care of this patient Time Spent With Patient Time: Total time spent is greater than 50% in coordination of care (as documented) at patient's floor/unit and/or counseling patient: Procedures Arterial Line Size (Gauge): 20
[2024-07-09] MEDS: INSULIN LISPRO (AdmeLOG) 1 UNIT/0.01 ML UNIT SC (12:05)
--- NOTE | 2024-07-09 14:50 | PC.NURSE ---
verified with pharmacist kisha ALCANTARA to give cefazolin dose now.
--- NOTE | 2024-07-09 15:58 | PC.SS ---
SS was informed by physician residents [facility] is unable to accept pt. SS has [facility], [facility], and [facility] using [facility]. SS has sent inquiry to the subacutes outside the area. [address] [facility] (subacute) has accepted on [facility]. SS has been attempting to call [facility] but they have not answered. SS has left voicemail.
--- NOTE | 2024-07-09 16:05 | PD.RESPRO ---
Documentation for date of: 07/09/24 Subjective Subjective Interval history: 07/09: no acute overnight events. Pt is s/p tracheostomy on blowby this morning. Pt is awake but no following command. No labs are done today as pt. will need renal panel every other day. Subacute would like pt to be placed at an LTACH for more close monitoring as pt's blood pressure is too unstable. Pt is at goal rate of PEG tube feedings tolerating well. will continue pt on blowby during day and ventilator through the night. waiting LTACH placement and insurance approval. Exam Vital Signs Temp Pulse Resp BP Pulse Ox O2 Del Method O2 Flow Rate 97.0 F 79 18 101/61 97 Mechanical Ventilation 6 07/09/24 12:00 07/09/24 15:02 07/09/24 15:02 07/09/24 14:48 07/09/24 15:02 07/09/24 12:00 07/09/24 15:02 FiO2 28 07/09/24 15:02 Narrative Exam Gen: Extremely cachectic, makes continuous orofacial movements, non verbal HEENT: Dry mucous membranes. Left eye heavily scarred, right eye glassy. CVS: normal S1 and S2. No M/R/G. Resp: No rhonchi, rales, crackles or wheezing. Abd: soft, non-tender, non-distended, PEG tube no active leaking MSK: No edema. Multiple old scars/wounds on all extremities. Bruising at left/right inguinal folds. Neuro: unable to evaluate, does not seem to track movement Objective Labs 07/08/24 04:59 07/10/24 05:30 ABG Interpretation ABG results: 06/15/24 06/15/24 06/15/24 11:06 14:05 17:00 ABG pH 7.23 L 7.33 L D 7.34 L ABG pCO2 69 H 56 H D 57 H ABG pO2 153 H 67 L D 65 L ABG HCO3 29 H 29 H 30 H ABG O2 Saturation 99 H 92 91 ABG Base Excess 0 3 4 H VBG pH VBG pCO2 VBG pO2 VBG Base Excess 06/16/24 06/17/24 06/18/24 04:04 04:36 04:04 ABG pH 7.35 7.42 7.53 H D ABG pCO2 57 H 54 H 57 H ABG pO2 58 L* 77 L 73 L ABG HCO3 31 H 35 H 47 H ABG O2 Saturation 88 L 96 96 ABG Base Excess 5 H 9 H 22 H VBG pH VBG pCO2 VBG pO2 VBG Base Excess 06/19/24 06/22/24 06/23/24 04:12 17:30 09:55 ABG pH 7.54 H ABG pCO2 50 H ABG pO2 61 L ABG HCO3 42 H ABG O2 Saturation 93 ABG Base Excess 18 H VBG pH 7.46 7.49 VBG pCO2 43 41 VBG pO2 98 H 39 D VBG Base Excess 6 H 7 H 06/25/24 06/26/24 06/27/24 05:04 12:08 04:54 ABG pH 7.47 H 7.48 H ABG pCO2 43 45 ABG pO2 60 L 41 L* ABG HCO3 31 H 34 H ABG O2 Saturation 92 77 L ABG Base Excess 6 H 9 H VBG pH 7.43 VBG pCO2 47 VBG pO2 35 VBG Base Excess 6 H 06/27/24 06/28/24 06/28/24 06:23 04:27 13:19 ABG pH 7.47 H 7.55 H ABG pCO2 46 41 ABG pO2 157 H D 78 L D ABG HCO3 34 H 36 H ABG O2 Saturation 100 H 98 ABG Base Excess 9 H 13 H VBG pH 7.56 VBG pCO2 41 VBG pO2 41 VBG Base Excess 13 H 06/29/24 07/01/24 07/02/24 15:15 06:59 05:03 ABG pH 7.39 7.55 H D ABG pCO2 67 H 41 D ABG pO2 80 L 99 ABG HCO3 41 H 36 H ABG O2 Saturation 95 99 H ABG Base Excess 13 H 12 H VBG pH 7.61 VBG pCO2 40 VBG pO2 76 H D VBG Base Excess 18 H 07/04/24 07/05/24 07/06/24 07:54 04:02 04:15 ABG pH 7.50 H 7.49 H 7.49 H ABG pCO2 40 45 45 ABG pO2 70 L D 63 L 108 D ABG HCO3 31 H 34 H 34 H ABG O2 Saturation 96 94 99 H ABG Base Excess 8 H 9 H 9 H VBG pH VBG pCO2 VBG pO2 VBG Base Excess Quality Measures Quality Measures VTE prophylaxis Assessment & Plan Assessment Current Active Medications: Generic Name Dose Route Start Last Admin Trade Name Freq PRN Reason Stop Dose Admin Acetaminophen 650 mg 06/15/24 13:50 Acetaminophen Supp 650 Mg Supp DC 07/15/24 13:49 Q4HR PRN PAIN SCALE 1-3 (mild Acetaminophen 650 mg 06/19/24 07:27 07/02/24 04:39 Acetaminophen Noreen 325 Mg/10 Ml Udc NG 07/19/24 07:26 650 mg Q4HR PRN Administration Pain Or Fever > 100.4 Protocol Al Hydrox/Mg Hydrox/Simethicone 30 ml 06/15/24 13:50 Mg Hyd/Al Hyd/[place] (Maalox Reg) Susp 30 Ml Udc NG 07/15/24 13:49 Q4HR PRN Heartburn or Upset Stomach Albuterol 2.5 mg 07/04/24 15:00 07/09/24 15:00 Albuterol Rt 2.5 Mg/0.5 Ml Nebu INH 08/03/24 14:59 2.5 mg Q8HRRT LIZ Administration Aspirin 81 mg 06/23/24 09:00 07/09/24 09:31 Aspirin 81 Mg Chew PO 07/23/24 08:59 81 mg QDAY LIZ Administration Atorvastatin Calcium 40 mg 06/21/24 21:00 07/08/24 20:53 Atorvastatin Calcium 20 Mg Tablet PO 07/21/24 20:59 40 mg HS LIZ Administration Calcium Carbonate 600 mg 06/23/24 09:00 07/09/24 09:31 Calcium Carbonate 600 Mg Tablet NG 07/23/24 08:59 600 mg QDAY LIZ Administration Dextrose 25 ml 06/24/24 13:46 Dextrose 50%-Water Inj 50 Ml Syringe IV 07/24/24 13:45 Q15MIN PRN BG 50-70 responsive npo pt Dextrose 50 ml 06/24/24 13:46 07/04/24 05:17 Dextrose 50%-Water Inj 50 Ml Syringe IV 07/24/24 13:45 50 ml Q15MIN PRN Administration BG <50 OR BG <70 & pt unresponsive Enoxaparin Sodium 30 mg 07/05/24 10:00 07/09/24 09:30 Enoxaparin Sod Inj 30 Mg/0.3 Ml Syringe SC 07/19/24 09:59 30 mg QDAY LIZ Administration Ferrous Sulfate 300 mg 06/25/24 09:00 07/09/24 09:30 Ferrous Sulfate 300 Mg/5 Ml Udc NG 07/25/24 08:59 300 mg QDAY LIZ Administration Fludrocortisone Acetate 0.05 mg 07/08/24 09:00 07/08/24 09:56 Fludrocortisone Acetate 0.1 Mg Tablet PO 08/07/24 08:59 0.05 mg Q48H LIZ Administration Glucagon 1 mg 06/24/24 13:46 Glucagon Inj 1 Mg Vial IM Q15MIN PRN BG <70, and no IV access Cefazolin Sodium 2 gm in 100 mls @ 100 mls/hr 07/09/24 14:00 07/09/24 14:48 Ancef 2gm Ivpb IV 07/16/24 13:59 100 mls/hr Q8HR LIZ Administration Insulin Human Lispro 0 unit 06/24/24 18:00 07/09/24 12:05 Insulin Lispro (Admelog) 1 Unit/0.01 Ml Unit SC 07/24/24 17:59 1 unit Q6HR LIZ Administration Protocol Magnesium Hydroxide 30 ml 06/15/24 13:50 Milk Of Magnesia Susp 30 Ml Udc NG 07/15/24 13:49 QDAY PRN CONSTIPATION Midodrine 10 mg 07/08/24 14:00 07/09/24 14:48 Midodrine 5 Mg Tablet GT 08/07/24 13:59 10 mg TID LIZ Administration Multivitamins/Minerals 15 ml 06/19/24 15:15 07/09/24 09:30 Multivitamin 15 Ml Udc NG 07/19/24 15:14 15 ml QDAY LIZ Administration Pantoprazole Sodium 40 mg 06/16/24 09:00 07/09/24 09:30 Pantoprazole Inj 40 Mg Vial IVP 07/16/24 08:59 40 mg QDAY LIZ Administration Pharmacy Consult 1 each 06/15/24 18:27 Pharmacy To Consult Pneumovacc XX 07/15/24 18:26 PRN PRN CONSULT Potassium Phos/Sodium Phos 1 packet 06/28/24 11:00 07/09/24 09:31 Naph,Kph Mbdb 1 Packet (1.5 Gm) PO 07/28/24 10:59 1 packet BID LIZ Administration Sertraline HCl 100 mg 06/23/24 15:30 07/09/24 09:30 Sertraline Hcl 25 Mg Tablet NG 07/23/24 15:29 100 mg QDAY LIZ Administration Simethicone 40 mg 07/02/24 09:30 07/09/24 09:31 Simethicone 40 Mg/0.6 Ml Oral Syringe GT 08/01/24 09:29 40 mg BID LIZ Administration Sodium Chloride 3 ml 07/04/24 10:05 07/09/24 15:00 Sodium Chloride Rt Noreen 0.9% 3 Ml Nebu INH 08/03/24 10:04 3 ml PRN PRN Administration SOLN Plan 54 Y/O F with PMHx significant for Downs Syndrome, Schizophrenia,blindness, IBS, presents with chief complaint of AMS, last known normal 9 pm last night, initally admitted to ICU for septic shock requiring pressors and acute hypoxic respiratory failure requiring intubation, pt is downgraded to telemetry to resume care until LTACH placement. #AHRF 2/2 #Aspiration Pneumonia #MSSA pneumonia - resolved #MSSA bacteremia #s/p tracheostomy Patient has history of Down syndrome, risk for aspiration pneumonia. Bacterial and viral pneumonia both possible. Influenza panel negative. MRSA screen negative. Sedated and mechanically ventilated Extubated on 06/24/24, but reintubated on 06/25 Patient extubated for second time, still severely hypoxic, requiring high flow nasal cannula. Patient desatted despite several hours of manual bagging, required reintubation. Unable to successfully extubate. Underwent tracheostomy on 07/03/24 for long-term mechanical ventilation. On 10L oxygen blow by. Sputum culture positive for MSSA pneumonia on 06/25 Plan: -continue renaly dosed cefazolin 2 g BID daily -nocturnal ventilation set to previous settings PS mode: PS 5.0, PEEP 8.0, FiO2 50 -During day time, tracheostomy blow-by as tolerated #Hypotension- resolved Patient was treated for septic shock with vasopressors. MAP improved but patient's BP remains low. MAP is above 50. Continue BP support with midodrine. -continue midodrine 10 mg TID -MAP goal > 50 #Severe protein malnutrition #s/p PEG tube placement Patient BMI 14.9. Patient unable to provide history, per caregiver patient has good oral intake most times, has been malnourished for years due to chronic diarrhea, has not had significant weight loss recently. Patient has very little muscle mass, temporal wasting, sunken eyes. GI was consulted and patient underwent PEG tube placement on 07/03. Dietary team was consulted and patient to be started on Vital 1.2 at 10 mL/h. Advance 10 mL every 8 hours to goal rate of 35 mL/h. Plan: -tube feeding goal 35 ml/h -daily labs -monitoring/repleting of potassium, phosphorous, magnesium #Hx IBS Patient history of IBS. Patient had diarrhea for 3 days prior to admission, not unusual for patient. Per caregiver, patient also experiences diarrhea after any food intake. Possible underlying malabsorption (celiac vs pancreatic insufficiency vs lactose deficiency) -Monitor bowel movements -stool osmolarity test pending -Treat metabolic abnormalities as needed #Adrenal insufficiency Suspect due to chronic malnutrition. Patient arrived with hypotension, hypernatremia. Patient has been hypokalemic despite repletion and bradycardic. Clinical improvement with hydrocortisone followed by worsening when dosage reduced. Patient continues to present with hypokalemia even with yesterday's dose reduction. Continue to wean from 0.1 mg to 0.05 mg daily. Plan: -Decrease fludrocortisone from 0.1 mg to 0.05 mg daily on 07/05 -Received first 0.05mg fludrocortisone dose on 07/06 -Start taper today (07/07) fludrocoristone to 0.05mg every other day -monitor sodium and potassium #Acute encephalopathy-resolved Multifactorial: hypoxia, S/p shock, electrolytes imbalance Low density areas in both basal ganglia seen on head CT -Neurologist Dr. Jaeger was consulted. -EEG completed-interpreted as abnormal with diffuse slowing suggestive of a diffuse encephalopathy of hypoxic origin per neurology. #Hx Schizophrenia #Hx Depression -Held patient's home medication risperidone 4mg BID, Ziprasidone 60mg BID, and zolpidem 10mg PO HS. -continue with Sertraline 100mg daily #Hyperglycemia-resolved Patient had mild hyperglycemia that was uptrending. No history of diabetes. Likely due to steroid treatment. -Started on SSI lispro q6h -Monitor daily glucose checks #Macrocytic anemia Patient hemoglobin 9.2, MCV 114. No previous labs to compare to. No obvious signs of acute bleeding. On 06/23: Hb 6.9, transfused 1 unit PRBC Folate and B12 not depleted. -Monitor and replete for hgb < 7.0 -Patient received 1 unit PRBC (07/07) Health maintenance: Diet: Vital tube feeds at 35 ml/hr DVT prophylaxis: Lovenox 30 daily G.I prophylaxis: Pantoprazole Code: Full code Diso: Tele for LTACH placement hold Assessment and plan discussed with my senior resident Dr. Ogden & attending physician Dr. Jane Tran (PGY-1)- Internal medicine resident Attending Provider Attestation/Addendum I reviewed labs, imaging, EKG, home medications and prior available records. Face to face evaluation was performed by me. I have personally examined the patient and discussed assessment and plan with the IM team. I reviewed the resident note and agree with the plan with exceptions as below. Acute hypoxic respiratory failure Aspiration pneumonia Shock, possibly septic S/p tracheostomy Status post PEG tube placement Malnutrition, CVA, BMI 14.6 MSSA bacteremia Down syndrome Acute hypotension Possible cortisol deficiency Added midodrine to fludrocortisone due to hypotension. Discussed with Dr. Roe: Declined to accept the patient back to SNF given her hypotension. Discussed with social work associate: Will plan for LTAC Continue PEG tube feeds and oxygen via trach/T-piece Cefazolin till 07/13
--- NOTE | 2024-07-09 16:10 | PC.SS ---
Follow up note: Pt is on IV antibiotic. Pt will return home upon dc.
[2024-07-09] MEDS: ATORVASTATIN CALCIUM 20 MG TABLET 40 MG PO (20:36)
--- NOTE | 2024-07-09 23:09 | PD.NEUROPROG ---
Documentation for date of: 07/09/24 Subjective Subjective Interval history: Patient was seen in telemetry today with her sister at the bedside. She had significant improvement in mental status and overall condition to the point of able to communicate despite the hearing loss. Exam - Neurology Vital Signs Temp Pulse Resp BP Pulse Ox O2 Del Method O2 Flow Rate 97.9 F 74 18 88/58 L 97 Mechanical Ventilation 6 07/09/24 20:00 07/09/24 22:53 07/09/24 20:00 07/09/24 21:37 07/09/24 20:00 07/09/24 20:00 07/09/24 20:00 FiO2 35 07/09/24 20:00 Narrative Exam GENERAL APPEARANCE: Thin built, emaciated with features of Down syndrome, trached. HEENT: Normocephalic, atraumatic, extraocular movements intact. Pupils: Equal reacting to light NECK: Supple, no JVD or bruits. CARDIOVASULAR: Heart: S1, S2 heard, regular without S3-S4 or murmur no rubs or gallops. LUNGS/CHEST: Clear to auscultation bilaterally. No rails, rhonchi, or wheezing. Normal inspection. ABDOMEN: Soft, nontender, with normal bowel sounds. No pulsatile masses. No rebound, rigidity, or guarding. Normal inspection and palpation. EXTREMITIES: Normal inspection and palpation. No edema, clubbing or cyanosis. SKIN: Warm and dry without rashes. Normal inspection. MUSCULOSKELETAL: No cervical, thoracic, lumbar or midline bony tenderness. Normal inspection. NEURO: Alert, awake and oriented x1. Cranial nerves: II through XII grossly intact. Able to verbalize when her sister talk to her louder in her left ear. motor system: Tone and bulk: Normal: Strength: Moves all 4 extremities purposefully; No pronator drift noted. Rest of exam: Limited. no signs of meningeal irritation noted. PSYCHIATRIC: Limited Objective Labs 07/08/24 04:59 07/08/24 04:59 ABG Interpretation ABG results: 06/15/24 06/15/24 06/15/24 11:06 14:05 17:00 ABG pH 7.23 L 7.33 L D 7.34 L ABG pCO2 69 H 56 H D 57 H ABG pO2 153 H 67 L D 65 L ABG HCO3 29 H 29 H 30 H ABG O2 Saturation 99 H 92 91 ABG Base Excess 0 3 4 H VBG pH VBG pCO2 VBG pO2 VBG Base Excess 06/16/24 06/17/24 06/18/24 04:04 04:36 04:04 ABG pH 7.35 7.42 7.53 H D ABG pCO2 57 H 54 H 57 H ABG pO2 58 L* 77 L 73 L ABG HCO3 31 H 35 H 47 H ABG O2 Saturation 88 L 96 96 ABG Base Excess 5 H 9 H 22 H VBG pH VBG pCO2 VBG pO2 VBG Base Excess 06/19/24 06/22/24 06/23/24 04:12 17:30 09:55 ABG pH 7.54 H ABG pCO2 50 H ABG pO2 61 L ABG HCO3 42 H ABG O2 Saturation 93 ABG Base Excess 18 H VBG pH 7.46 7.49 VBG pCO2 43 41 VBG pO2 98 H 39 D VBG Base Excess 6 H 7 H 06/25/24 06/26/24 06/27/24 05:04 12:08 04:54 ABG pH 7.47 H 7.48 H ABG pCO2 43 45 ABG pO2 60 L 41 L* ABG HCO3 31 H 34 H ABG O2 Saturation 92 77 L ABG Base Excess 6 H 9 H VBG pH 7.43 VBG pCO2 47 VBG pO2 35 VBG Base Excess 6 H 06/27/24 06/28/24 06/28/24 06:23 04:27 13:19 ABG pH 7.47 H 7.55 H ABG pCO2 46 41 ABG pO2 157 H D 78 L D ABG HCO3 34 H 36 H ABG O2 Saturation 100 H 98 ABG Base Excess 9 H 13 H VBG pH 7.56 VBG pCO2 41 VBG pO2 41 VBG Base Excess 13 H 06/29/24 07/01/24 07/02/24 15:15 06:59 05:03 ABG pH 7.39 7.55 H D ABG pCO2 67 H 41 D ABG pO2 80 L 99 ABG HCO3 41 H 36 H ABG O2 Saturation 95 99 H ABG Base Excess 13 H 12 H VBG pH 7.61 VBG pCO2 40 VBG pO2 76 H D VBG Base Excess 18 H 07/04/24 07/05/24 07/06/24 07:54 04:02 04:15 ABG pH 7.50 H 7.49 H 7.49 H ABG pCO2 40 45 45 ABG pO2 70 L D 63 L 108 D ABG HCO3 31 H 34 H 34 H ABG O2 Saturation 96 94 99 H ABG Base Excess 8 H 9 H 9 H VBG pH VBG pCO2 VBG pO2 VBG Base Excess Assessment & Plan Assessment and plan (1) Acute respiratory failure with hypoxia: Status: Acute Assessment and plan: Stable status post tracheostomy Maintaining oxygen saturation (2) Altered mental status: Status: Acute Assessment and plan: Significant improvement noted Continue with the current management Procedures Arterial Line Size (Gauge): 20
[2024-07-10] VITALS (21 sets, daily range): BP systolic 84–109; BP diastolic 54–68; PULSE 54–87; RESP 12–23; TEMP 36.1–36.7; O2SAT 95–100
[2024-07-10] MEDS: MIDODRINE 5 MG TABLET 10 MG GT ×2 (06:09→13:46)
[2024-07-10] MEDS: ceFAZolin/D5W 2 GM IV 2 GM/100 ML BAG IV ×3 (06:09→21:00)
[2024-07-10 06:42] LABS: Albumin, Serum 2.9 gm/dL (3.5-5.0); Anion Gap 9 (7-16); BUN/Creatinine Ratio 43 Ratio (12-20); Blood Urea Nitrogen 17 mg/dL (9-23); Calcium 7.6 mg/dL (8.3-10.6); Calcium (Corrected) 8.5 mg/dL (8.5-10.1); Carbon Dioxide 31.8 mMol/L (20.0-31.0); Chloride 96 mMol/L (98-107); Creatinine (Component) 0.4 mg/dL (0.6-1.3); Estimated Creatinine Clearance 56.5 mL/min (>60); Glucose 122 mg/dL (74-106); Osmolality,Calculated 276 (275-295); Phosphorous 3.4 mg/dL (2.4-5.1); Potassium 2.9 mMol/L (3.4-5.1); Sodium 137 mMol/L (136-145); eGFR > 60 See Note
[2024-07-10] MEDS: SODIUM CHLORIDE RT SOL 0.9% 3 ML NEBU INH ×3 (06:43→23:08)
[2024-07-10] MEDS: ALBUTEROL RT 2.5 MG/0.5 ML NEBU INH ×3 (06:43→23:08)
--- NOTE | 2024-07-10 08:50 | PC.SS ---
Addendum entered by Jennifer Lara 07/10/24 15:50: SS received call from Raciel at patient's health insurance who is aware [facility] and [facility] are reviewing inquiry. SS also explained Subacute facilities have declined and [facility] is reviewing. SS provided Schrader with SS fax number for contracted Subacute facilities. Raciel explained LTAC facilities are arranged with department and person to contact is Corine robles at [phone] or [phone]. Raciel explained she will inform Corine from . Addendum entered by Jennifer Lara 07/10/24 12:50: SS received call from Capri at [facility] ([facility]) she is reviewing patient's information. Addendum entered by Jennifer Lara 07/10/24 11:42: SS called Raciel from patient's health insurance and left voicemail with SS contact information. Original Note: SS followed up with Jaelyn phone# [phone] who is aware pt has peg, trach, ventilator at night, and blow by in day. Jaelyn states she will have to review patient's information. SS has also provided her with Estela, phone# [phone] (contact with patient's health insurance) to inquire if they are contracted with patient's health insurance. SS spoke to Weston from [facility] who is reviewing patient's information.
[2024-07-10] MEDS: Magnesium Sulfate 2 GM Ivpb 2 GM/50 ML BAG IV (10:00)
[2024-07-10] MEDS: POTASSIUM CHL 10 mEq IVPB 10 MEQ/100 ML BAG 100 MEQ IV ×4 (10:00→13:46)
[2024-07-10] MEDS: PANTOPRAZOLE INJ 40 MG VIAL IVP (10:00)
[2024-07-10] MEDS: POTASSIUM CHLORIDE 10% 20 MEQ/15 ML UDC 40 MEQ GT (10:01)
[2024-07-10] MEDS: MULTIVITAMIN 15 ML UDC NG (10:01)
[2024-07-10] MEDS: ENOXAPARIN SOD INJ 30 MG/0.3 ML SYRINGE SC (10:01)
[2024-07-10] MEDS: Ferrous Sulfate 300 MG/5 ML UDC NG (10:01)
[2024-07-10] MEDS: FLUDROCORTISONE ACETATE 0.1 MG TABLET 0.05 MG PO (10:01)
[2024-07-10] MEDS: CALCIUM CARBONATE 600 MG TABLET NG (10:07)
[2024-07-10] MEDS: ASPIRIN 81 MG CHEW PO (10:07)
[2024-07-10] MEDS: SERTRALINE HCL 25 MG TABLET 100 MG NG (10:07)
[2024-07-10] MEDS: NAPH,KPH MBDB 1 PACKET (1.5 GM) PO ×2 (10:08→20:19)
[2024-07-10] MEDS: SIMETHICONE 40 MG/0.6 ML ORAL SYRINGE GT ×2 (10:09→20:19)
[2024-07-10] MEDS: INSULIN LISPRO (AdmeLOG) 1 UNIT/0.01 ML UNIT SC (11:29)
[2024-07-10] MEDS: POTASSIUM CHLORIDE 10% 20 MEQ/15 ML UDC GT (12:33)
--- NOTE | 2024-07-10 16:07 | ESPR_ITS ---
Documentation for date of: 07/10/24 Subjective Subjective Interval history: 07/10: no acute overnight events. Pt is s/p tracheostomy on blowby this morning. renal panel today show hypokalemia of 2.9 and 120 meq was repleated. Pt is tolerating tube feedings well at goal rate of PEG tube feedings of 35ml/h with 50ml of water flushes Q6h. her oxygen saturation is at 93%. will continue pt on blowby during day and ventilator through the night. Waiting LTACH placement and insurance approval. Exam Vital Signs Temp Pulse Resp BP Pulse Ox O2 Del Method O2 Flow Rate 97.0 F 66 16 106/60 97 Mechanical Ventilation 6 07/10/24 11:47 07/10/24 14:46 07/10/24 14:41 07/10/24 13:46 07/10/24 14:41 07/10/24 11:47 07/10/24 14:41 FiO2 28 07/10/24 14:41 Narrative Exam Gen: Extremely cachectic, makes continuous orofacial movements, non verbal HEENT: Dry mucous membranes. Left eye heavily scarred, right eye glassy. CVS: normal S1 and S2. No M/R/G. Resp: No rhonchi, rales, crackles or wheezing. Abd: soft, non-tender, non-distended, PEG tube no active leaking MSK: No edema. Multiple old scars/wounds on all extremities. Bruising at left/right inguinal folds. Neuro: unable to evaluate, does not seem to track movement Objective Labs 07/08/24 04:59 07/10/24 05:30 Labs: Laboratory Results - last 24 hr 07/03/24 07/10/24 15:00 05:30 Sodium 137 Potassium 2.9 L D Chloride 96 L Carbon Dioxide 31.8 H Anion Gap 9 BUN 17 Creatinine 0.4 L Estim Creat Clear Calc 56.5 L eGFR > 60 BUN/Creatinine Ratio 43 H Glucose 122 H Calculated Osmolality 276 Calcium 7.6 L Corrected Calcium 8.5 Phosphorus 3.4 Albumin 2.9 L Misc Test Result See Sep Rpt ABG Interpretation ABG results: 06/15/24 06/15/24 06/15/24 11:06 14:05 17:00 ABG pH 7.23 L 7.33 L D 7.34 L ABG pCO2 69 H 56 H D 57 H ABG pO2 153 H 67 L D 65 L ABG HCO3 29 H 29 H 30 H ABG O2 Saturation 99 H 92 91 ABG Base Excess 0 3 4 H VBG pH VBG pCO2 VBG pO2 VBG Base Excess 06/16/24 06/17/24 06/18/24 04:04 04:36 04:04 ABG pH 7.35 7.42 7.53 H D ABG pCO2 57 H 54 H 57 H ABG pO2 58 L* 77 L 73 L ABG HCO3 31 H 35 H 47 H ABG O2 Saturation 88 L 96 96 ABG Base Excess 5 H 9 H 22 H VBG pH VBG pCO2 VBG pO2 VBG Base Excess 06/19/24 06/22/24 06/23/24 04:12 17:30 09:55 ABG pH 7.54 H ABG pCO2 50 H ABG pO2 61 L ABG HCO3 42 H ABG O2 Saturation 93 ABG Base Excess 18 H VBG pH 7.46 7.49 VBG pCO2 43 41 VBG pO2 98 H 39 D VBG Base Excess 6 H 7 H 06/25/24 06/26/24 06/27/24 05:04 12:08 04:54 ABG pH 7.47 H 7.48 H ABG pCO2 43 45 ABG pO2 60 L 41 L* ABG HCO3 31 H 34 H ABG O2 Saturation 92 77 L ABG Base Excess 6 H 9 H VBG pH 7.43 VBG pCO2 47 VBG pO2 35 VBG Base Excess 6 H 06/27/24 06/28/24 06/28/24 06:23 04:27 13:19 ABG pH 7.47 H 7.55 H ABG pCO2 46 41 ABG pO2 157 H D 78 L D ABG HCO3 34 H 36 H ABG O2 Saturation 100 H 98 ABG Base Excess 9 H 13 H VBG pH 7.56 VBG pCO2 41 VBG pO2 41 VBG Base Excess 13 H 06/29/24 07/01/24 07/02/24 15:15 06:59 05:03 ABG pH 7.39 7.55 H D ABG pCO2 67 H 41 D ABG pO2 80 L 99 ABG HCO3 41 H 36 H ABG O2 Saturation 95 99 H ABG Base Excess 13 H 12 H VBG pH 7.61 VBG pCO2 40 VBG pO2 76 H D VBG Base Excess 18 H 07/04/24 07/05/24 07/06/24 07:54 04:02 04:15 ABG pH 7.50 H 7.49 H 7.49 H ABG pCO2 40 45 45 ABG pO2 70 L D 63 L 108 D ABG HCO3 31 H 34 H 34 H ABG O2 Saturation 96 94 99 H ABG Base Excess 8 H 9 H 9 H VBG pH VBG pCO2 VBG pO2 VBG Base Excess Quality Measures Quality Measures VTE prophylaxis Assessment & Plan Assessment Current Active Medications: Generic Name Dose Route Start Last Admin Trade Name Freq PRN Reason Stop Dose Admin Acetaminophen 650 mg 06/15/24 13:50 Acetaminophen Supp 650 Mg Supp SC 07/15/24 13:49 Q4HR PRN PAIN SCALE 1-3 (mild Acetaminophen 650 mg 06/19/24 07:27 07/02/24 04:39 Acetaminophen Noreen 325 Mg/10 Ml Udc NG 07/19/24 07:26 650 mg Q4HR PRN Administration Pain Or Fever > 100.4 Protocol Al Hydrox/Mg Hydrox/Simethicone 30 ml 06/15/24 13:50 Mg Hyd/Al Hyd/Franklyn (Maalox Reg) Susp 30 Ml Udc NG 07/15/24 13:49 Q4HR PRN Heartburn or Upset Stomach Albuterol 2.5 mg 07/04/24 15:00 07/10/24 14:46 Albuterol Rt 2.5 Mg/0.5 Ml Nebu INH 08/03/24 14:59 2.5 mg Q8HRRT LIZ Administration Aspirin 81 mg 06/23/24 09:00 07/10/24 10:07 Aspirin 81 Mg Chew PO 07/23/24 08:59 81 mg QDAY LIZ Administration Atorvastatin Calcium 40 mg 06/21/24 21:00 07/09/24 20:36 Atorvastatin Calcium 20 Mg Tablet PO 07/21/24 20:59 40 mg HS LIZ Administration Calcium Carbonate 600 mg 06/23/24 09:00 07/10/24 10:07 Calcium Carbonate 600 Mg Tablet NG 07/23/24 08:59 600 mg QDAY LIZ Administration Dextrose 25 ml 06/24/24 13:46 Dextrose 50%-Water Inj 50 Ml Syringe IV 07/24/24 13:45 Q15MIN PRN BG 50-70 responsive npo pt Dextrose 50 ml 12/24/24 13:46 07/04/24 05:17 Dextrose 50%-Water Inj 50 Ml Syringe IV 07/24/24 13:45 50 ml Q15MIN PRN Administration BG <50 OR BG <70 & pt unresponsive Enoxaparin Sodium 30 mg 07/05/24 10:00 07/10/24 10:01 Enoxaparin Sod Inj 30 Mg/0.3 Ml Syringe SC 07/19/24 09:59 30 mg QDAY LZI Administration Ferrous Sulfate 300 mg 06/25/24 09:00 07/10/24 10:01 Ferrous Sulfate 300 Mg/5 Ml Udc NG 07/25/24 08:59 300 mg QDAY LIZ Administration Fludrocortisone Acetate 0.05 mg 07/08/24 09:00 07/10/24 10:01 Fludrocortisone Acetate 0.1 Mg Tablet PO 08/07/24 08:59 0.05 mg Q48H LIZ Administration Glucagon 1 mg 06/24/24 13:46 Glucagon Inj 1 Mg Vial IM Q15MIN PRN BG <70, and no IV access Cefazolin Sodium 2 gm in 100 mls @ 100 mls/hr 07/09/24 14:00 07/10/24 14:53 Ancef 2gm Ivpb IV 07/16/24 13:59 100 mls/hr Q8HR LIZ Administration Insulin Human Lispro 0 unit 06/24/24 18:00 07/10/24 11:29 Insulin Lispro (Admelog) 1 Unit/0.01 Ml Unit SC 07/24/24 17:59 1 unit Q6HR LIZ Administration Protocol Magnesium Hydroxide 30 ml 06/15/24 13:50 Milk Of Magnesia Susp 30 Ml Udc NG 07/15/24 13:49 QDAY PRN CONSTIPATION Midodrine 5 mg 07/10/24 17:00 Midodrine 5 Mg Tablet GT 08/09/24 16:59 QID LIZ Multivitamins/Minerals 15 ml 06/19/24 15:15 07/10/24 10:01 Multivitamin 15 Ml Udc NG 07/19/24 15:14 15 ml QDAY LIZ Administration Pantoprazole Sodium 40 mg 06/16/24 09:00 07/10/24 10:00 Pantoprazole Inj 40 Mg Vial IVP 07/16/24 08:59 40 mg QDAY LIZ Administration Pharmacy Consult 1 each 06/15/24 18:27 Pharmacy To Consult Pneumovacc XX 07/15/24 18:26 PRN PRN CONSULT Potassium Phos/Sodium Phos 1 packet 06/28/24 11:00 07/10/24 10:08 [facility] Mbdb 1 Packet (1.5 Gm) PO 07/28/24 10:59 1 packet BID LIZ Administration Sertraline HCl 100 mg 06/23/24 15:30 07/10/24 10:07 Sertraline Hcl 25 Mg Tablet NG 07/23/24 15:29 100 mg QDAY LIZ Administration Simethicone 40 mg 07/02/24 09:30 07/10/24 10:09 Simethicone 40 Mg/0.6 Ml Oral Syringe GT 08/01/24 09:29 40 mg BID LIZ Administration Sodium Chloride 3 ml 07/04/24 10:05 07/10/24 14:46 Sodium Chloride Rt Noreen 0.9% 3 Ml Nebu INH 08/03/24 10:04 3 ml PRN PRN Administration SOLN Plan 54 Y/O F with PMHx significant for Downs Syndrome, Schizophrenia,blindness, IBS, presents with chief complaint of AMS, last known normal 9 pm last night, initally admitted to ICU for septic shock requiring pressors and acute hypoxic respiratory failure requiring intubation, pt is downgraded to telemetry to resume care until LTACH placement. #AHRF 2/2 #Aspiration Pneumonia #MSSA pneumonia - resolved #MSSA bacteremia #s/p tracheostomy Patient has history of Down syndrome, risk for aspiration pneumonia. Bacterial and viral pneumonia both possible. Influenza panel negative. MRSA screen negative. Sedated and mechanically ventilated Extubated on 06/24/24, but reintubated on 06/25 Patient extubated for second time, still severely hypoxic, requiring high flow nasal cannula. Patient desatted despite several hours of manual bagging, required reintubation. Unable to successfully extubate. Underwent tracheostomy on 07/03/24 for long- term mechanical ventilation. On 10L oxygen blow by. Sputum culture positive for MSSA pneumonia on 06/25 Plan: -continue renaly dosed cefazolin 2 g BID daily -nocturnal ventilation set to previous settings PS mode: PS 5.0, PEEP 8.0, FiO2 50 -During day time, tracheostomy blow-by as tolerated #Hypotension- resolved Patient was treated for septic shock with vasopressors. MAP improved but patient's BP remains low. MAP is above 50. Continue BP support with midodrine. -continue midodrine 10 mg TID -MAP goal > 50 #Severe protein malnutrition #s/p PEG tube placement Patient BMI 14.9. Patient unable to provide history, per caregiver patient has good oral intake most times, has been malnourished for years due to chronic diarrhea, has not had significant weight loss recently. Patient has very little muscle mass, temporal wasting, sunken eyes. GI was consulted and patient underwent PEG tube placement on 07/03. Dietary team was consulted and patient to be started on Vital 1.2 at 10 mL/h. Advance 10 mL every 8 hours to goal rate of 35 mL/h. Plan: -tube feeding goal 35 ml/h with 50ml water flushed Q6h -renal panel every other day -monitoring/repleting of potassium, phosphorous, magnesium #Hx IBS Patient history of IBS. Patient had diarrhea for 3 days prior to admission, not unusual for patient. Per caregiver, patient also experiences diarrhea after any food intake. Possible underlying malabsorption (celiac vs pancreatic insufficiency vs lactose deficiency) -Monitor bowel movements -stool osmolarity test pending -Treat metabolic abnormalities as needed #Adrenal insufficiency Suspect due to chronic malnutrition. Patient arrived with hypotension, hypernatremia. Patient has been hypokalemic despite repletion and bradycardic. Clinical improvement with hydrocortisone followed by worsening when dosage reduced. Patient continues to present with hypokalemia even with yesterday's dose reduction. Continue to wean from 0.1 mg to 0.05 mg daily. Plan: -Decrease fludrocortisone from 0.1 mg to 0.05 mg daily on 07/05 -Received first 0.05mg fludrocortisone dose on 07/06 - fludrocoristone to 0.05mg every day -monitor sodium and potassium #Acute encephalopathy-resolved Multifactorial: hypoxia, S/p shock, electrolytes imbalance Low density areas in both basal ganglia seen on head CT -Neurologist Dr. Jaeger was consulted. -EEG completed-interpreted as abnormal with diffuse slowing suggestive of a diffuse encephalopathy of hypoxic origin per neurology. #Hx Schizophrenia #Hx Depression -Held patient's home medication risperidone 4mg BID, Ziprasidone 60mg BID, and zolpidem 10mg PO HS. -continue with Sertraline 100mg daily #Hyperglycemia-resolved Patient had mild hyperglycemia that was uptrending. No history of diabetes. Likely due to steroid treatment. -Started on SSI lispro q6h -Monitor daily glucose checks #Macrocytic anemia Patient hemoglobin 9.2, MCV 114. No previous labs to compare to. No obvious signs of acute bleeding. On 06/23: Hb 6.9, transfused 1 unit PRBC Folate and B12 not depleted. -Monitor and replete for hgb < 7.0 -Patient received 1 unit PRBC (07/07) Health maintenance: Diet: Vital tube feeds at 35 ml/hr DVT prophylaxis: Lovenox 30 daily G.I prophylaxis: Pantoprazole Code: Full code Diso: Tele for LTACH placement hold Assessment and plan discussed with my senior resident Dr. Ogden & attending physician Dr. Jane Tran (PGY-1)- Internal medicine resident Attending Provider Attestation/Addendum I reviewed labs, imaging, EKG, home medications and prior available records. Face to face evaluation was performed by me. I have personally examined the patient and discussed assessment and plan with the IM team. I reviewed the resident note and agree with the plan with exceptions as below. Acute hypoxic respiratory failure Aspiration pneumonia Shock, possibly septic S/p tracheostomy Status post PEG tube placement Malnutrition, CVA, BMI 14.6 MSSA bacteremia Down syndrome Acute hypotension Possible cortisol deficiency Added midodrine to fludrocortisone due to hypotension. Discussed with Dr. Roe: Declined to accept the patient back to SNF given her hypotension. Discussed with social service coordinator: Will plan for LTAC Continue PEG tube feeds and oxygen via trach/T-piece Cefazolin till 07/13
[2024-07-10] MEDS: MIDODRINE 5 MG TABLET GT ×2 (17:43→20:19)
--- NOTE | 2024-07-10 19:13 | PD.IMPROG ---
Documentation for date of: 07/10/24 Subjective Subjective Interval history: Hemoglobin hematocrit 8.4 and 25.4 tolerating enteral feeding Exam Vital Signs Temp Pulse Resp BP Pulse Ox O2 Del Method O2 Flow Rate 97.3 F 72 20 97/62 95 Mechanical Ventilation 6 07/10/24 16:00 07/10/24 17:43 07/10/24 16:00 07/10/24 17:43 07/10/24 16:00 07/10/24 16:00 07/10/24 14:41 FiO2 28 07/10/24 16:00 Objective Labs 07/08/24 04:59 07/10/24 05:30 Labs: Laboratory Results - last 24 hr 07/03/24 07/10/24 15:00 05:30 Sodium 137 Potassium 2.9 L D Chloride 96 L Carbon Dioxide 31.8 H Anion Gap 9 BUN 17 Creatinine 0.4 L Estim Creat Clear Calc 56.5 L eGFR > 60 BUN/Creatinine Ratio 43 H Glucose 122 H Calculated Osmolality 276 Calcium 7.6 L Corrected Calcium 8.5 Phosphorus 3.4 Albumin 2.9 L Misc Test Result See Sep Rpt Impressions Impression: # Failure to thrive # Enteral feeding via PEG tube ABG Interpretation ABG results: 06/15/24 06/15/24 06/15/24 11:06 14:05 17:00 ABG pH 7.23 L 7.33 L D 7.34 L ABG pCO2 69 H 56 H D 57 H ABG pO2 153 H 67 L D 65 L ABG HCO3 29 H 29 H 30 H ABG O2 Saturation 99 H 92 91 ABG Base Excess 0 3 4 H VBG pH VBG pCO2 VBG pO2 VBG Base Excess 06/16/24 06/17/24 06/18/24 04:04 04:36 04:04 ABG pH 7.35 7.42 7.53 H D ABG pCO2 57 H 54 H 57 H ABG pO2 58 L* 77 L 73 L ABG HCO3 31 H 35 H 47 H ABG O2 Saturation 88 L 96 96 ABG Base Excess 5 H 9 H 22 H VBG pH VBG pCO2 VBG pO2 VBG Base Excess 06/19/24 06/22/24 06/23/24 04:12 17:30 09:55 ABG pH 7.54 H ABG pCO2 50 H ABG pO2 61 L ABG HCO3 42 H ABG O2 Saturation 93 ABG Base Excess 18 H VBG pH 7.46 7.49 VBG pCO2 43 41 VBG pO2 98 H 39 D VBG Base Excess 6 H 7 H 06/25/24 06/26/24 06/27/24 05:04 12:08 04:54 ABG pH 7.47 H 7.48 H ABG pCO2 43 45 ABG pO2 60 L 41 L* ABG HCO3 31 H 34 H ABG O2 Saturation 92 77 L ABG Base Excess 6 H 9 H VBG pH 7.43 VBG pCO2 47 VBG pO2 35 VBG Base Excess 6 H 06/27/24 06/28/24 06/28/24 06:23 04:27 13:19 ABG pH 7.47 H 7.55 H ABG pCO2 46 41 ABG pO2 157 H D 78 L D ABG HCO3 34 H 36 H ABG O2 Saturation 100 H 98 ABG Base Excess 9 H 13 H VBG pH 7.56 VBG pCO2 41 VBG pO2 41 VBG Base Excess 13 H 06/29/24 07/01/24 07/02/24 15:15 06:59 05:03 ABG pH 7.39 7.55 H D ABG pCO2 67 H 41 D ABG pO2 80 L 99 ABG HCO3 41 H 36 H ABG O2 Saturation 95 99 H ABG Base Excess 13 H 12 H VBG pH 7.61 VBG pCO2 40 VBG pO2 76 H D VBG Base Excess 18 H 07/04/24 07/05/24 07/06/24 07:54 04:02 04:15 ABG pH 7.50 H 7.49 H 7.49 H ABG pCO2 40 45 45 ABG pO2 70 L D 63 L 108 D ABG HCO3 31 H 34 H 34 H ABG O2 Saturation 96 94 99 H ABG Base Excess 8 H 9 H 9 H VBG pH VBG pCO2 VBG pO2 VBG Base Excess Assessment & Plan A&P Narrative # Failure to thrive Plan Consent will be obtained from the appropriate authorities for placement of a PEG tube insertion under intravenous moderate sedation via fiberoptic esophageal gastroduodenoscopy Will follow the patient Other medical problems include # Acute hypoxic respiratory failure requiring endotracheal intubation and mechanical ventilation # Altered mental status # Schizophrenia # Clinically blind Thank you very much for the opportunity to participate in the care of this patient Time Spent With Patient Time: Total time spent is greater than 50% in coordination of care (as documented) at patient's floor/unit and/or counseling patient: Procedures Arterial Line Size (Gauge): 20
[2024-07-10] MEDS: ATORVASTATIN CALCIUM 20 MG TABLET 40 MG PO (20:19)
--- NOTE | 2024-07-10 23:52 | PD.NEUROPROG ---
Documentation for date of: 07/10/24 Subjective Subjective Interval history: Patient was seen in telemetry today with her sister at the bedside. She had significant improvement in mental status and overall condition to the point of able to communicate despite the hearing loss. Exam - Neurology Vital Signs Temp Pulse Resp BP Pulse Ox O2 Del Method O2 Flow Rate 98.0 F 69 22 H 91/63 96 Mechanical Ventilation 6 07/10/24 20:00 07/10/24 23:33 07/10/24 23:12 07/10/24 20:19 07/10/24 23:33 07/10/24 20:00 07/10/24 23:12 FiO2 35 07/10/24 23:33 Narrative Exam GENERAL APPEARANCE: Thin built, emaciated with features of Down syndrome, trached. HEENT: Normocephalic, atraumatic, extraocular movements intact. Pupils: Equal reacting to light NECK: Supple, no JVD or bruits. CARDIOVASULAR: Heart: S1, S2 heard, regular without S3-S4 or murmur no rubs or gallops. LUNGS/CHEST: Clear to auscultation bilaterally. No rails, rhonchi, or wheezing. Normal inspection. ABDOMEN: Soft, nontender, with normal bowel sounds. No pulsatile masses. No rebound, rigidity, or guarding. Normal inspection and palpation. EXTREMITIES: Normal inspection and palpation. No edema, clubbing or cyanosis. SKIN: Warm and dry without rashes. Normal inspection. MUSCULOSKELETAL: No cervical, thoracic, lumbar or midline bony tenderness. Normal inspection. NEURO: Alert, awake and oriented x1. Cranial nerves: II through XII grossly intact. Able to verbalize when her sister talk to her louder in her left ear. motor system: Tone and bulk: Normal: Strength: Moves all 4 extremities purposefully; No pronator drift noted. Rest of exam: Limited. no signs of meningeal irritation noted. PSYCHIATRIC: Limited Objective Labs 07/08/24 04:59 07/10/24 05:30 Labs: Laboratory Results - last 24 hr 07/03/24 07/10/24 15:00 05:30 Sodium 137 Potassium 2.9 L D Chloride 96 L Carbon Dioxide 31.8 H Anion Gap 9 BUN 17 Creatinine 0.4 L Estim Creat Clear Calc 56.5 L eGFR > 60 BUN/Creatinine Ratio 43 H Glucose 122 H Calculated Osmolality 276 Calcium 7.6 L Corrected Calcium 8.5 Phosphorus 3.4 Albumin 2.9 L Misc Test Result See Sep Rpt ABG Interpretation ABG results: 06/15/24 06/15/24 06/15/24 11:06 14:05 17:00 ABG pH 7.23 L 7.33 L D 7.34 L ABG pCO2 69 H 56 H D 57 H ABG pO2 153 H 67 L D 65 L ABG HCO3 29 H 29 H 30 H ABG O2 Saturation 99 H 92 91 ABG Base Excess 0 3 4 H VBG pH VBG pCO2 VBG pO2 VBG Base Excess 06/16/24 06/17/24 06/18/24 04:04 04:36 04:04 ABG pH 7.35 7.42 7.53 H D ABG pCO2 57 H 54 H 57 H ABG pO2 58 L* 77 L 73 L ABG HCO3 31 H 35 H 47 H ABG O2 Saturation 88 L 96 96 ABG Base Excess 5 H 9 H 22 H VBG pH VBG pCO2 VBG pO2 VBG Base Excess 06/19/24 06/22/24 06/23/24 04:12 17:30 09:55 ABG pH 7.54 H ABG pCO2 50 H ABG pO2 61 L ABG HCO3 42 H ABG O2 Saturation 93 ABG Base Excess 18 H VBG pH 7.46 7.49 VBG pCO2 43 41 VBG pO2 98 H 39 D VBG Base Excess 6 H 7 H 06/25/24 06/26/24 06/27/24 05:04 12:08 04:54 ABG pH 7.47 H 7.48 H ABG pCO2 43 45 ABG pO2 60 L 41 L* ABG HCO3 31 H 34 H ABG O2 Saturation 92 77 L ABG Base Excess 6 H 9 H VBG pH 7.43 VBG pCO2 47 VBG pO2 35 VBG Base Excess 6 H 06/27/24 06/28/24 06/28/24 06:23 04:27 13:19 ABG pH 7.47 H 7.55 H ABG pCO2 46 41 ABG pO2 157 H D 78 L D ABG HCO3 34 H 36 H ABG O2 Saturation 100 H 98 ABG Base Excess 9 H 13 H VBG pH 7.56 VBG pCO2 41 VBG pO2 41 VBG Base Excess 13 H 06/29/24 07/01/2425 15:15 06:59 05:03 ABG pH 7.39 7.55 H D ABG pCO2 67 H 41 D ABG pO2 80 L 99 ABG HCO3 41 H 36 H ABG O2 Saturation 95 99 H ABG Base Excess 13 H 12 H VBG pH 7.61 VBG pCO2 40 VBG pO2 76 H D VBG Base Excess 18 H 07/04/24 07/05/24 07/06/24 07:54 04:02 04:15 ABG pH 7.50 H 7.49 H 7.49 H ABG pCO2 40 45 45 ABG pO2 70 L D 63 L 108 D ABG HCO3 31 H 34 H 34 H ABG O2 Saturation 96 94 99 H ABG Base Excess 8 H 9 H 9 H VBG pH VBG pCO2 VBG pO2 VBG Base Excess Assessment & Plan Assessment and plan (1) Acute respiratory failure with hypoxia: Status: Acute Assessment and plan: Stable status post tracheostomy Maintaining oxygen saturation (2) Altered mental status: Status: Acute Assessment and plan: Significant improvement noted Continue with the current management Procedures Arterial Line Size (Gauge): 20
[2024-07-11] VITALS (19 sets, daily range): BP systolic 81–96; BP diastolic 50–59; PULSE 59–87; RESP 12–27; TEMP 36.7–38.2; O2SAT 91–100; BMI 13.5
[2024-07-11] MEDS: MIDODRINE 5 MG TABLET GT ×4 (05:07→20:28)
[2024-07-11] MEDS: ceFAZolin/D5W 2 GM IV 2 GM/100 ML BAG IV ×3 (05:07→21:26)
[2024-07-11] MEDS: ALBUTEROL RT 2.5 MG/0.5 ML NEBU INH ×3 (07:08→23:01)
[2024-07-11] MEDS: SODIUM CHLORIDE RT SOL 0.9% 3 ML NEBU INH ×2 (07:08→23:01)
[2024-07-11 09:42] LABS: Albumin, Serum 3.1 gm/dL (3.5-5.0); Anion Gap 6 (7-16); BUN/Creatinine Ratio 43 Ratio (12-20); Blood Urea Nitrogen 17 mg/dL (9-23); Calcium (Corrected) 8.7 mg/dL (8.5-10.1); Carbon Dioxide 32.1 mMol/L (20.0-31.0); Chloride 97 mMol/L (98-107); Creatinine (Component) 0.4 mg/dL (0.6-1.3); Estimated Creatinine Clearance 52.4 mL/min (>60); Glucose 123 mg/dL (74-106); Osmolality,Calculated 272 (275-295); Phosphorous 3.5 mg/dL (2.4-5.1); Potassium 4.1 mMol/L (3.4-5.1); Sodium 135 mMol/L (136-145); eGFR > 60 See Note
[2024-07-11] MEDS: PANTOPRAZOLE INJ 40 MG VIAL IVP (09:46)
[2024-07-11] MEDS: ENOXAPARIN SOD INJ 30 MG/0.3 ML SYRINGE SC (09:46)
[2024-07-11] MEDS: SIMETHICONE 40 MG/0.6 ML ORAL SYRINGE GT ×2 (09:46→20:28)
[2024-07-11] MEDS: MULTIVITAMIN 15 ML UDC NG (09:46)
[2024-07-11] MEDS: Ferrous Sulfate 300 MG/5 ML UDC NG (09:46)
[2024-07-11] MEDS: SERTRALINE HCL 25 MG TABLET 100 MG NG (09:47)
[2024-07-11] MEDS: CALCIUM CARBONATE 600 MG TABLET NG (09:47)
[2024-07-11] MEDS: ASPIRIN 81 MG CHEW PO (09:47)
[2024-07-11] MEDS: NAPH,KPH MBDB 1 PACKET (1.5 GM) PO ×2 (09:47→20:28)
--- NOTE | 2024-07-11 10:29 | PC.SS ---
JOHNATHAN followed up with Jaelyn at [facility] who explained they have 1 bed available and are expecting an admission. JOHNATHAN was informed to contact them Sunday to follow up with bed availability. JOHNATHAN received call from Weston at [facility] who states they can accept pt but will require insurance authorization. JOHNATHAN provided Weston with phone# to contact Corine SILVA at [phone] or [phone]. Weston states he will start insurance authorization.
--- NOTE | 2024-07-11 11:23 | PC.NURSE ---
pt found to have temp of 100.8. Thermostat turned down, and blanket removed. I will reassess in 30 minutes.
[2024-07-11] MEDS: INSULIN LISPRO (AdmeLOG) 1 UNIT/0.01 ML UNIT SC (11:24)
[2024-07-11 13:47] LABS: Basophils % (Auto) 0 % (0-2.5); Eosinophils % (Auto) 0 % (0-10); Hematocrit 28.4 % (36.0-46.0); Hemoglobin 9.2 g/dL (12.0-16.0); Immature Granulocytes % (Auto) 1 % (0-0); Immature Granulocytes Auto 0.03 Thou/mm3 (0.00-0.00); Lymphocytes # (Auto) 1.1 Thou/mm3 (1.0-4.8); Lymphocytes % (Auto) 17 % (10-50); Mean Corpuscular HGB Conc 32.4 g/dl (31.0-37.0); Mean Corpuscular Hemoglobin 31.8 pg (25.0-35.0); Mean Corpuscular Volume 98 fL (80-100); Monocytes # (Auto) 0.2 Thou/mm3 (0.0-0.8); Monocytes % (Auto) 3 % (0-12); Neutrophils # (Auto) 5.1 Thou/mm3 (1.8-7.7); Neutrophils % (Auto) 79 % (37-80); Nucleated Red Blood Cell % 0 /100 WBC (0); Platelet Count 287 Thou/mm3 (140-440); RDW Standard Deviation 60.9 fL (36.4-46.3); Red Blood Count 2.89 Miln/mm3 (4.00-5.20); White Blood Count 6.5 Thou/mm3 (3.6-11.0)
--- NOTE | 2024-07-11 14:14 | PD.RESPRO ---
Documentation for date of: 07/11/24 Subjective Subjective Interval history: 07/11: no acute overnight events. Pt is s/p tracheostomy on blowby this morning. 120 meq of potassium was repleated yesterday. CBC and renal panel today is stable. Pt is tolerating tube feedings well at goal rate of PEG tube feedings of 35ml/h with 50ml of water flushes Q6h. her oxygen saturation is at 93%. will continue pt on blowby during day and ventilator through the night. Pt is accepted at [facility] and awaiting insurance approval. Medical management remains the same as previously documented. Exam Vital Signs Temp Pulse Resp BP Pulse Ox O2 Del Method O2 Flow Rate 100.8 F H 84 14 88/59 L 96 T-Piece 8 07/11/24 12:00 07/11/24 12:09 07/11/24 12:09 07/11/24 12:00 07/11/24 12:09 07/11/24 12:00 07/11/24 12:09 FiO2 35 07/11/24 12:09 Narrative Exam Gen: Extremely cachectic, makes continuous orofacial movements, non verbal HEENT: Dry mucous membranes. Left eye heavily scarred, right eye glassy. CVS: normal S1 and S2. No M/R/G. Resp: No rhonchi, rales, crackles or wheezing. Abd: soft, non-tender, non-distended, PEG tube no active leaking MSK: No edema. Multiple old scars/wounds on all extremities. Bruising at left/right inguinal folds. Neuro: unable to evaluate, does not seem to track movement Objective Labs 07/11/24 08:40 07/11/24 08:40 Labs: Laboratory Results - last 24 hr 07/11/24 08:40 WBC 6.5 RBC 2.89 L Hgb 9.2 L Hct 28.4 L MCV 98 MCH 31.8 MCHC 32.4 RDW Std Deviation 60.9 H Plt Count 287 D Neut % (Auto) 79 Lymph % (Auto) 17 [place] % (Auto) 3 Eos % (Auto) 0 Baso % (Auto) 0 Neut # (Auto) 5.1 Lymph # (Auto) 1.1 [place] # (Auto) 0.2 Eos # (Auto) 0.0 Baso # (Auto) 0.0 Immature Gran # (Auto) 0.03 H Absolute Nucleated RBC 0.00 Immature Gran % 1 H Nucleated RBC % 0 Sodium 135 L Potassium 4.1 D Chloride 97 L Carbon Dioxide 32.1 H Anion Gap 6 L BUN 17 Creatinine 0.4 L Estim Creat Clear Calc 52.4 L eGFR > 60 BUN/Creatinine Ratio 43 H Glucose 123 H Calculated Osmolality 272 L Calcium 8.0 L Corrected Calcium 8.7 Phosphorus 3.5 Albumin 3.1 L ABG Interpretation ABG results: 06/15/24 06/15/24 06/15/24 11:06 14:05 17:00 ABG pH 7.23 L 7.33 L D 7.34 L ABG pCO2 69 H 56 H D 57 H ABG pO2 153 H 67 L D 65 L ABG HCO3 29 H 29 H 30 H ABG O2 Saturation 99 H 92 91 ABG Base Excess 0 3 4 H VBG pH VBG pCO2 VBG pO2 VBG Base Excess 06/16/24 06/17/24 06/18/24 04:04 04:36 04:04 ABG pH 7.35 7.42 7.53 H D ABG pCO2 57 H 54 H 57 H ABG pO2 58 L* 77 L 73 L ABG HCO3 31 H 35 H 47 H ABG O2 Saturation 88 L 96 96 ABG Base Excess 5 H 9 H 22 H VBG pH VBG pCO2 VBG pO2 VBG Base Excess 06/19/24 06/22/24 06/23/24 04:12 17:30 09:55 ABG pH 7.54 H ABG pCO2 50 H ABG pO2 61 L ABG HCO3 42 H ABG O2 Saturation 93 ABG Base Excess 18 H VBG pH 7.46 7.49 VBG pCO2 43 41 VBG pO2 98 H 39 D VBG Base Excess 6 H 7 H 06/25/24 06/26/24 06/27/24 05:04 12:08 04:54 ABG pH 7.47 H 7.48 H ABG pCO2 43 45 ABG pO2 60 L 41 L* ABG HCO3 31 H 34 H ABG O2 Saturation 92 77 L ABG Base Excess 6 H 9 H VBG pH 7.43 VBG pCO2 47 VBG pO2 35 VBG Base Excess 6 H 06/27/24 06/28/24 06/28/24 06:23 04:27 13:19 ABG pH 7.47 H 7.55 H ABG pCO2 46 41 ABG pO2 157 H D 78 L D ABG HCO3 34 H 36 H ABG O2 Saturation 100 H 98 ABG Base Excess 9 H 13 H VBG pH 7.56 VBG pCO2 41 VBG pO2 41 VBG Base Excess 13 H 06/29/24 07/01/24 07/02/24 15:15 06:59 05:03 ABG pH 7.39 7.55 H D ABG pCO2 67 H 41 D ABG pO2 80 L 99 ABG HCO3 41 H 36 H ABG O2 Saturation 95 99 H ABG Base Excess 13 H 12 H VBG pH 7.61 VBG pCO2 40 VBG pO2 76 H D VBG Base Excess 18 H 07/04/24 07/05/24 07/06/24 07:54 04:02 04:15 ABG pH 7.50 H 7.49 H 7.49 H ABG pCO2 40 45 45 ABG pO2 70 L D 63 L 108 D ABG HCO3 31 H 34 H 34 H ABG O2 Saturation 96 94 99 H ABG Base Excess 8 H 9 H 9 H VBG pH VBG pCO2 VBG pO2 VBG Base Excess Quality Measures Quality Measures VTE prophylaxis Assessment & Plan Assessment Current Active Medications: Generic Name Dose Route Start Last Admin Trade Name Freq PRN Reason Stop Dose Admin Acetaminophen 650 mg 06/15/24 13:50 Acetaminophen Supp 650 Mg Supp NM 07/15/24 13:49 Q4HR PRN PAIN SCALE 1-3 (mild Acetaminophen 650 mg 06/19/24 07:27 07/02/24 04:39 Acetaminophen Noreen 325 Mg/10 Ml Udc NG 07/19/24 07:26 650 mg Q4HR PRN Administration Pain Or Fever > 100.4 Protocol Al Hydrox/Mg Hydrox/Simethicone 30 ml 06/15/24 13:50 Mg Hyd/Al Hyd/[place] (Maalox Reg) Susp 30 Ml Udc NG 07/15/24 13:49 Q4HR PRN Heartburn or Upset Stomach Albuterol 2.5 mg 07/04/24 15:00 07/11/24 07:08 Albuterol Rt 2.5 Mg/0.5 Ml Nebu INH 08/03/24 14:59 2.5 mg Q8HRRT LIZ Administration Aspirin 81 mg 06/23/24 09:00 07/11/24 09:47 Aspirin 81 Mg Chew PO 07/23/24 08:59 81 mg QDAY LIZ Administration Atorvastatin Calcium 40 mg 06/21/24 21:00 07/10/24 20:19 Atorvastatin Calcium 20 Mg Tablet PO 07/21/24 20:59 40 mg HS LIZ Administration Calcium Carbonate 600 mg 06/23/24 09:00 07/11/24 09:47 Calcium Carbonate 600 Mg Tablet NG 07/23/24 08:59 600 mg QDAY LIZ Administration Dextrose 25 ml 06/24/24 13:46 Dextrose 50%-Water Inj 50 Ml Syringe IV 07/24/24 13:45 Q15MIN PRN BG 50-70 responsive npo pt Dextrose 50 ml 06/24/24 13:46 07/04/24 05:17 Dextrose 50%-Water Inj 50 Ml Syringe IV 07/24/24 13:45 50 ml Q15MIN PRN Administration BG <50 OR BG <70 & pt unresponsive Enoxaparin Sodium 30 mg 07/05/24 10:00 07/11/24 09:46 Enoxaparin Sod Inj 30 Mg/0.3 Ml Syringe SC 07/19/24 09:59 30 mg QDAY LIZ Administration Ferrous Sulfate 300 mg 06/25/24 09:00 07/11/24 09:46 Ferrous Sulfate 300 Mg/5 Ml Udc NG 07/25/24 08:59 300 mg QDAY LIZ Administration Fludrocortisone Acetate 0.05 mg 07/08/24 09:00 07/10/24 10:01 Fludrocortisone Acetate 0.1 Mg Tablet PO 08/07/24 08:59 0.05 mg Q48H LIZ Administration Glucagon 1 mg 06/24/24 13:46 Glucagon Inj 1 Mg Vial IM Q15MIN PRN BG <70, and no IV access Cefazolin Sodium 2 gm in 100 mls @ 100 mls/hr 07/09/24 14:00 07/11/24 13:50 Ancef 2gm Ivpb IV 07/16/24 13:59 100 mls/hr Q8HR LIZ Administration Insulin Human Lispro 0 unit 06/24/24 18:00 07/11/24 11:24 Insulin Lispro (Admelog) 1 Unit/0.01 Ml Unit SC 07/24/24 17:59 1 unit Q6HR LIZ Administration Protocol Magnesium Hydroxide 30 ml 06/15/24 13:50 Milk Of Magnesia Susp 30 Ml Udc NG 07/15/24 13:49 QDAY PRN CONSTIPATION Midodrine 5 mg 07/10/24 17:00 07/11/24 11:24 Midodrine 5 Mg Tablet GT 08/09/24 16:59 5 mg QID LIZ Administration Multivitamins/Minerals 15 ml 06/19/24 15:15 07/11/24 09:46 Multivitamin 15 Ml Udc NG 07/19/24 15:14 15 ml QDAY LIZ Administration Pantoprazole Sodium 40 mg 06/16/24 09:00 07/11/24 09:46 Pantoprazole Inj 40 Mg Vial IVP 07/16/24 08:59 40 mg QDAY LIZ Administration Pharmacy Consult 1 each 06/15/24 18:27 Pharmacy To Consult Pneumovacc XX 07/15/24 18:26 PRN PRN CONSULT Potassium Phos/Sodium Phos 1 packet 06/28/24 11:00 07/11/24 09:47 [facility] Mbdb 1 Packet (1.5 Gm) PO 07/28/24 10:59 1 packet BID LIZ Administration Sertraline HCl 100 mg 06/23/24 15:30 07/11/24 09:47 Sertraline Hcl 25 Mg Tablet NG 07/23/24 15:29 100 mg QDAY LIZ Administration Simethicone 40 mg 07/02/24 09:30 07/11/24 09:46 Simethicone 40 Mg/0.6 Ml Oral Syringe GT 08/01/24 09:29 40 mg BID LIZ Administration Sodium Chloride 3 ml 07/04/24 10:05 07/11/24 07:08 Sodium Chloride Rt Noreen 0.9% 3 Ml Nebu INH 08/03/24 10:04 3 ml PRN PRN Administration SOLN Plan 54 Y/O F with PMHx significant for Downs Syndrome, Schizophrenia,blindness, IBS, presents with chief complaint of AMS, last known normal 9 pm last night, initally admitted to ICU for septic shock requiring pressors and acute hypoxic respiratory failure requiring intubation, pt is downgraded to telemetry to resume care until LTACH placement. #AHRF 2/2 #Aspiration Pneumonia #MSSA pneumonia - resolved #MSSA bacteremia #s/p tracheostomy Patient has history of Down syndrome, risk for aspiration pneumonia. Bacterial and viral pneumonia both possible. Influenza panel negative. MRSA screen negative. Sedated and mechanically ventilated Extubated on 06/24/24, but reintubated on 06/25 Patient extubated for second time, still severely hypoxic, requiring high flow nasal cannula. Patient desatted despite several hours of manual bagging, required reintubation. Unable to successfully extubate. Underwent tracheostomy on 07/03/24 for long-term mechanical ventilation. On 10L oxygen blow by. Sputum culture positive for MSSA pneumonia on 06/25 Plan: -continue renaly dosed cefazolin 2 g BID daily -nocturnal ventilation set to previous settings PS mode: PS 5.0, PEEP 8.0, FiO2 50 -During day time, tracheostomy blow-by as tolerated #Hypotension- resolved Patient was treated for septic shock with vasopressors. MAP improved but patient's BP remains low. MAP is above 50. Continue BP support with midodrine. -continue midodrine 10 mg TID -MAP goal > 50 #Severe protein malnutrition #s/p PEG tube placement Patient BMI 14.9. Patient unable to provide history, per caregiver patient has good oral intake most times, has been malnourished for years due to chronic diarrhea, has not had significant weight loss recently. Patient has very little muscle mass, temporal wasting, sunken eyes. GI was consulted and patient underwent PEG tube placement on 07/03. Dietary team was consulted and patient to be started on Vital 1.2 at 10 mL/h. Advance 10 mL every 8 hours to goal rate of 35 mL/h. Plan: -tube feeding goal 35 ml/h with 50ml water flushed Q6h -renal panel every other day -monitoring/repleting of potassium, phosphorous, magnesium #Hx IBS Patient history of IBS. Patient had diarrhea for 3 days prior to admission, not unusual for patient. Per caregiver, patient also experiences diarrhea after any food intake. Possible underlying malabsorption (celiac vs pancreatic insufficiency vs lactose deficiency) -Monitor bowel movements -stool osmolarity test pending -Treat metabolic abnormalities as needed #Adrenal insufficiency Suspect due to chronic malnutrition. Patient arrived with hypotension, hypernatremia. Patient has been hypokalemic despite repletion and bradycardic. Clinical improvement with hydrocortisone followed by worsening when dosage reduced. Patient continues to present with hypokalemia even with yesterday's dose reduction. Continue to wean from 0.1 mg to 0.05 mg daily. Plan: -Decrease fludrocortisone from 0.1 mg to 0.05 mg daily on 07/05 -Received first 0.05mg fludrocortisone dose on 07/06 - fludrocoristone to 0.05mg every day -monitor sodium and potassium #Acute encephalopathy-resolved Multifactorial: hypoxia, S/p shock, electrolytes imbalance Low density areas in both basal ganglia seen on head CT -Neurologist Dr. Jaeger was consulted. -EEG completed-interpreted as abnormal with diffuse slowing suggestive of a diffuse encephalopathy of hypoxic origin per neurology. #Hx Schizophrenia #Hx Depression -Held patient's home medication risperidone 4mg BID, Ziprasidone 60mg BID, and zolpidem 10mg PO HS. -continue with Sertraline 100mg daily #Hyperglycemia-resolved Patient had mild hyperglycemia that was uptrending. No history of diabetes. Likely due to steroid treatment. -Started on SSI lispro q6h -Monitor daily glucose checks #Macrocytic anemia Patient hemoglobin 9.2, MCV 114. No previous labs to compare to. No obvious signs of acute bleeding. On 06/23: Hb 6.9, transfused 1 unit PRBC Folate and B12 not depleted. -Monitor and replete for hgb < 7.0 -Patient received 1 unit PRBC (07/07) Health maintenance: Diet: Vital tube feeds at 35 ml/hr DVT prophylaxis: Lovenox 30 daily G.I prophylaxis: Pantoprazole Code: Full code Diso: Tele for LTACH placement hold Assessment and plan discussed with my senior resident Dr. Ogden & attending physician Dr. Jane Tran ([id number])- Internal medicine resident Attending Provider Attestation/Addendum I reviewed labs, imaging, EKG, home medications and prior available records. Face to face evaluation was performed by me. I have personally examined the patient and discussed assessment and plan with the IM team. I reviewed the resident note and agree with the plan with exceptions as below. Acute hypoxic respiratory failure Aspiration pneumonia Shock, possibly septic S/p tracheostomy Status post PEG tube placement Malnutrition, CVA, BMI less than 15 MSSA bacteremia Down syndrome Acute hypotension Possible cortisol deficiency Added midodrine to fludrocortisone due to hypotension. Discussed with Dr. Roe: Declined to accept the patient back to SNF given her hypotension. Discussed with nephrology social worker: Will plan for LTAC Continue PEG tube feeds and oxygen via trach/T-piece Cefazolin till 07/13 Discussed with nephrology social worker: Found an LTAC however pending authorization
--- NOTE | 2024-07-11 19:07 | ESPR_ITS ---
Documentation for date of: 07/11/24 Subjective Subjective Interval history: Tolerating enteral feeding PEG site looks clean Exam Vital Signs Temp Pulse Resp BP Pulse Ox O2 Del Method O2 Flow Rate 98.4 F 67 16 81/51 L 95 T-Piece 8.5 07/11/24 16:00 07/11/24 17:45 07/11/24 16:00 07/11/24 17:45 07/11/24 16:00 07/11/24 16:00 07/11/24 16:00 FiO2 35 07/11/24 16:00 Objective Labs 07/11/24 08:40 07/11/24 08:40 Labs: Laboratory Results - last 24 hr 07/11/24 08:40 WBC 6.5 RBC 2.89 L Hgb 9.2 L Hct 28.4 L MCV 98 MCH 31.8 MCHC 32.4 RDW Std Deviation 60.9 H Plt Count 287 D Neut % (Auto) 79 Lymph % (Auto) 17 [place] % (Auto) 3 Eos % (Auto) 0 Baso % (Auto) 0 Neut # (Auto) 5.1 Lymph # (Auto) 1.1 [place] # (Auto) 0.2 Eos # (Auto) 0.0 Baso # (Auto) 0.0 Immature Gran # (Auto) 0.03 H Absolute Nucleated RBC 0.00 Immature Gran % 1 H Nucleated RBC % 0 Sodium 135 L Potassium 4.1 D Chloride 97 L Carbon Dioxide 32.1 H Anion Gap 6 L BUN 17 Creatinine 0.4 L Estim Creat Clear Calc 52.4 L eGFR > 60 BUN/Creatinine Ratio 43 H Glucose 123 H Calculated Osmolality 272 L Calcium 8.0 L Corrected Calcium 8.7 Phosphorus 3.5 Albumin 3.1 L Impressions Impression: # Failure to thrive # PEG placement for enteral hyperalimentation patient on vital at 35 cc/h and doing well ABG Interpretation ABG results: 06/15/24 06/15/24 06/15/24 11:06 14:05 17:00 ABG pH 7.23 L 7.33 L D 7.34 L ABG pCO2 69 H 56 H D 57 H ABG pO2 153 H 67 L D 65 L ABG HCO3 29 H 29 H 30 H ABG O2 Saturation 99 H 92 91 ABG Base Excess 0 3 4 H VBG pH VBG pCO2 VBG pO2 VBG Base Excess 06/16/24 06/17/24 06/18/24 04:04 04:36 04:04 ABG pH 7.35 7.42 7.53 H D ABG pCO2 57 H 54 H 57 H ABG pO2 58 L* 77 L 73 L ABG HCO3 31 H 35 H 47 H ABG O2 Saturation 88 L 96 96 ABG Base Excess 5 H 9 H 22 H VBG pH VBG pCO2 VBG pO2 VBG Base Excess 06/19/24 06/22/24 06/23/24 04:12 17:30 09:55 ABG pH 7.54 H ABG pCO2 50 H ABG pO2 61 L ABG HCO3 42 H ABG O2 Saturation 93 ABG Base Excess 18 H VBG pH 7.46 7.49 VBG pCO2 43 41 VBG pO2 98 H 39 D VBG Base Excess 6 H 7 H 06/25/24 06/26/24 06/27/24 05:04 12:08 04:54 ABG pH 7.47 H 7.48 H ABG pCO2 43 45 ABG pO2 60 L 41 L* ABG HCO3 31 H 34 H ABG O2 Saturation 92 77 L ABG Base Excess 6 H 9 H VBG pH 7.43 VBG pCO2 47 VBG pO2 35 VBG Base Excess 6 H 06/27/24 06/28/24 06/28/24 06:23 04:27 13:19 ABG pH 7.47 H 7.55 H ABG pCO2 46 41 ABG pO2 157 H D 78 L D ABG HCO3 34 H 36 H ABG O2 Saturation 100 H 98 ABG Base Excess 9 H 13 H VBG pH 7.56 VBG pCO2 41 VBG pO2 41 VBG Base Excess 13 H 06/29/24 07/01/24 07/02/24 15:15 06:59 05:03 ABG pH 7.39 7.55 H D ABG pCO2 67 H 41 D ABG pO2 80 L 99 ABG HCO3 41 H 36 H ABG O2 Saturation 95 99 H ABG Base Excess 13 H 12 H VBG pH 7.61 VBG pCO2 40 VBG pO2 76 H D VBG Base Excess 18 H 07/04/24 07/05/24 07/06/24 07:54 04:02 04:15 ABG pH 7.50 H 7.49 H 7.49 H ABG pCO2 40 45 45 ABG pO2 70 L D 63 L 108 D ABG HCO3 31 H 34 H 34 H ABG O2 Saturation 96 94 99 H ABG Base Excess 8 H 9 H 9 H VBG pH VBG pCO2 VBG pO2 VBG Base Excess Assessment & Plan A&P Narrative # Failure to thrive Plan Consent will be obtained from the appropriate authorities for placement of a PEG tube insertion under intravenous moderate sedation via fiberoptic esophageal gastroduodenoscopy Will follow the patient Other medical problems include # Acute hypoxic respiratory failure requiring endotracheal intubation and mechanical ventilation # Altered mental status # Schizophrenia # Clinically blind Thank you very much for the opportunity to participate in the care of this patient Time Spent With Patient Time: Total time spent is greater than 50% in coordination of care (as documented) at patient's floor/unit and/or counseling patient: Procedures Arterial Line Size (Gauge): 20
[2024-07-11] MEDS: ATORVASTATIN CALCIUM 20 MG TABLET 40 MG PO (20:28)
--- NOTE | 2024-07-11 23:40 | PD.NEUROPROG ---
Documentation for date of: 07/11/24 Subjective Subjective Interval history: Patient was seen in telemetry today with her sister at the bedside. She had significant improvement in mental status and overall condition to the point of able to communicate despite the hearing loss. Exam - Neurology Vital Signs Temp Pulse Resp BP Pulse Ox O2 Del Method O2 Flow Rate 98.0 F 59 L 27 H 96/54 L 95 T-Piece 8.5 07/11/24 20:00 07/11/24 23:01 07/11/24 20:00 07/11/24 20:28 07/11/24 20:00 07/11/24 20:00 07/11/24 20:00 FiO2 35 07/11/24 20:00 Narrative Exam GENERAL APPEARANCE: Thin built, emaciated with features of Down syndrome, trached. HEENT: Normocephalic, atraumatic, extraocular movements intact. Pupils: Equal reacting to light NECK: Supple, no JVD or bruits. CARDIOVASULAR: Heart: S1, S2 heard, regular without S3-S4 or murmur no rubs or gallops. LUNGS/CHEST: Clear to auscultation bilaterally. No rails, rhonchi, or wheezing. Normal inspection. ABDOMEN: Soft, nontender, with normal bowel sounds. No pulsatile masses. No rebound, rigidity, or guarding. Normal inspection and palpation. EXTREMITIES: Normal inspection and palpation. No edema, clubbing or cyanosis. SKIN: Warm and dry without rashes. Normal inspection. MUSCULOSKELETAL: No cervical, thoracic, lumbar or midline bony tenderness. Normal inspection. NEURO: Alert, awake and oriented x1. Cranial nerves: II through XII grossly intact. Able to verbalize when her sister talk to her louder in her left ear. motor system: Tone and bulk: Normal: Strength: Moves all 4 extremities purposefully; No pronator drift noted. Rest of exam: Limited. no signs of meningeal irritation noted. PSYCHIATRIC: Limited Objective Labs 07/11/24 08:40 07/11/24 08:40 Labs: Laboratory Results - last 24 hr 07/11/24 08:40 WBC 6.5 RBC 2.89 L Hgb 9.2 L Hct 28.4 L MCV 98 MCH 31.8 MCHC 32.4 RDW Std Deviation 60.9 H Plt Count 287 D Neut % (Auto) 79 Lymph % (Auto) 17 [place] % (Auto) 3 Eos % (Auto) 0 Baso % (Auto) 0 Neut # (Auto) 5.1 Lymph # (Auto) 1.1 [place] # (Auto) 0.2 Eos # (Auto) 0.0 Baso # (Auto) 0.0 Immature Gran # (Auto) 0.03 H Absolute Nucleated RBC 0.00 Immature Gran % 1 H Nucleated RBC % 0 Sodium 135 L Potassium 4.1 D Chloride 97 L Carbon Dioxide 32.1 H Anion Gap 6 L BUN 17 Creatinine 0.4 L Estim Creat Clear Calc 52.4 L eGFR > 60 BUN/Creatinine Ratio 43 H Glucose 123 H Calculated Osmolality 272 L Calcium 8.0 L Corrected Calcium 8.7 Phosphorus 3.5 Albumin 3.1 L ABG Interpretation ABG results: 06/15/24 06/15/24 06/15/24 11:06 14:05 17:00 ABG pH 7.23 L 7.33 L D 7.34 L ABG pCO2 69 H 56 H D 57 H ABG pO2 153 H 67 L D 65 L ABG HCO3 29 H 29 H 30 H ABG O2 Saturation 99 H 92 91 ABG Base Excess 0 3 4 H VBG pH VBG pCO2 VBG pO2 VBG Base Excess 06/16/24 06/17/24 06/18/24 04:04 04:36 04:04 ABG pH 7.35 7.42 7.53 H D ABG pCO2 57 H 54 H 57 H ABG pO2 58 L* 77 L 73 L ABG HCO3 31 H 35 H 47 H ABG O2 Saturation 88 L 96 96 ABG Base Excess 5 H 9 H 22 H VBG pH VBG pCO2 VBG pO2 VBG Base Excess 06/19/24 06/22/24 06/23/24 04:12 17:30 09:55 ABG pH 7.54 H ABG pCO2 50 H ABG pO2 61 L ABG HCO3 42 H ABG O2 Saturation 93 ABG Base Excess 18 H VBG pH 7.46 7.49 VBG pCO2 43 41 VBG pO2 98 H 39 D VBG Base Excess 6 H 7 H 06/25/24 06/26/24 06/27/24 05:04 12:08 04:54 ABG pH 7.47 H 7.48 H ABG pCO2 43 45 ABG pO2 60 L 41 L* ABG HCO3 31 H 34 H ABG O2 Saturation 92 77 L ABG Base Excess 6 H 9 H VBG pH 7.43 VBG pCO2 47 VBG pO2 35 VBG Base Excess 6 H 06/27/24 06/28/24 06/28/24 06:23 04:27 13:19 ABG pH 7.47 H 7.55 H ABG pCO2 46 41 ABG pO2 157 H D 78 L D ABG HCO3 34 H 36 H ABG O2 Saturation 100 H 98 ABG Base Excess 9 H 13 H VBG pH 7.56 VBG pCO2 41 VBG pO2 41 VBG Base Excess 13 H 06/29/24 07/01/24 07/02/24 15:15 06:59 05:03 ABG pH 7.39 7.55 H D ABG pCO2 67 H 41 D ABG pO2 80 L 99 ABG HCO3 41 H 36 H ABG O2 Saturation 95 99 H ABG Base Excess 13 H 12 H VBG pH 7.61 VBG pCO2 40 VBG pO2 76 H D VBG Base Excess 18 H 07/04/24 07/05/24 07/06/24 07:54 04:02 04:15 ABG pH 7.50 H 7.49 H 7.49 H ABG pCO2 40 45 45 ABG pO2 70 L D 63 L 108 D ABG HCO3 31 H 34 H 34 H ABG O2 Saturation 96 94 99 H ABG Base Excess 8 H 9 H 9 H VBG pH VBG pCO2 VBG pO2 VBG Base Excess Assessment & Plan Assessment and plan (1) Acute respiratory failure with hypoxia: Status: Acute Assessment and plan: Stable status post tracheostomy Maintaining oxygen saturation (2) Altered mental status: Status: Acute Assessment and plan: Significant improvement noted Continue with the current management Procedures Arterial Line Size (Gauge): 20
[2024-07-12] VITALS (17 sets, daily range): BP systolic 73–113; BP diastolic 45–61; PULSE 57–93; RESP 15–30; TEMP 36.7–37.9; O2SAT 93–100; BMI 14.8
[2024-07-12] MEDS: ceFAZolin/D5W 2 GM IV 2 GM/100 ML BAG IV ×3 (05:20→21:22)
[2024-07-12] MEDS: MIDODRINE 5 MG TABLET GT (05:20)
[2024-07-12] MEDS: ALBUTEROL RT 2.5 MG/0.5 ML NEBU INH ×3 (06:05→22:48)
[2024-07-12] MEDS: SODIUM CHLORIDE RT SOL 0.9% 3 ML NEBU INH ×2 (06:05→15:21)
--- NOTE | 2024-07-12 08:09 | PD.RESPRO ---
Documentation for date of: 07/12/24 Subjective Subjective Interval history: Overnight events and labs reviewed, patient sister is present at the bedside, stated that she visits her daily, patient stays at a different home with her care provider. I asked the sister about her understanding of patient's low blood pressure, she stated they asked the usual psychiatric clinical nurse specialist and per the psychiatric clinical nurse specialist?the blood pressure is normal for her and every time she is evaluated in the hospital her blood pressure becomes low. I explained patient's basic hemodynamics need for midodrine to maintain organ perfusion. Told her we are waiting on an LTAC facility and insurance authorization. She was very pleased with the quality of care her sister has received . The patient was noted to be more alert today, systolic blood pressure in the 70s, we increased the patient's midodrine to 10mg 3 times daily Exam Vital Signs Temp Pulse Resp BP Pulse Ox O2 Del Method O2 Flow Rate 99.0 F 61 17 94/51 L 100 T-Piece 8 07/12/24 04:00 07/12/24 06:08 07/12/24 06:08 07/12/24 05:20 07/12/24 06:08 07/12/24 04:00 07/12/24 06:08 FiO2 35 07/12/24 06:08 Narrative Exam Gen: Extremely cachectic, makes continuous orofacial movements, non verbal HEENT: Dry mucous membranes. Left eye heavily scarred, right eye glassy. CVS: normal S1 and S2. No M/R/G. Resp: No rhonchi, rales, crackles or wheezing. Abd: soft, non-tender, non-distended, PEG tube no active leaking MSK: No edema. Multiple old scars/wounds on all extremities. Bruising at left/right inguinal folds. Neuro: unable to evaluate, does not seem to track movement Objective Labs 07/11/24 08:40 07/11/24 08:40 Labs: Laboratory Results - last 24 hr 07/11/24 08:40 WBC 6.5 RBC 2.89 L Hgb 9.2 L Hct 28.4 L MCV 98 MCH 31.8 MCHC 32.4 RDW Std Deviation 60.9 H Plt Count 287 D Neut % (Auto) 79 Lymph % (Auto) 17 [place] % (Auto) 3 Eos % (Auto) 0 Baso % (Auto) 0 Neut # (Auto) 5.1 Lymph # (Auto) 1.1 [place] # (Auto) 0.2 Eos # (Auto) 0.0 Baso # (Auto) 0.0 Immature Gran # (Auto) 0.03 H Absolute Nucleated RBC 0.00 Immature Gran % 1 H Nucleated RBC % 0 Sodium 135 L Potassium 4.1 D Chloride 97 L Carbon Dioxide 32.1 H Anion Gap 6 L BUN 17 Creatinine 0.4 L Estim Creat Clear Calc 52.4 L eGFR > 60 BUN/Creatinine Ratio 43 H Glucose 123 H Calculated Osmolality 272 L Calcium 8.0 L Corrected Calcium 8.7 Phosphorus 3.5 Albumin 3.1 L ABG Interpretation ABG results: 06/15/24 06/15/24 06/15/24 11:06 14:05 17:00 ABG pH 7.23 L 7.33 L D 7.34 L ABG pCO2 69 H 56 H D 57 H ABG pO2 153 H 67 L D 65 L ABG HCO3 29 H 29 H 30 H ABG O2 Saturation 99 H 92 91 ABG Base Excess 0 3 4 H VBG pH VBG pCO2 VBG pO2 VBG Base Excess 06/16/24 06/17/24 06/18/24 04:04 04:36 04:04 ABG pH 7.35 7.42 7.53 H D ABG pCO2 57 H 54 H 57 H ABG pO2 58 L* 77 L 73 L ABG HCO3 31 H 35 H 47 H ABG O2 Saturation 88 L 96 96 ABG Base Excess 5 H 9 H 22 H VBG pH VBG pCO2 VBG pO2 VBG Base Excess 06/19/24 06/22/24 06/23/24 04:12 17:30 09:55 ABG pH 7.54 H ABG pCO2 50 H ABG pO2 61 L ABG HCO3 42 H ABG O2 Saturation 93 ABG Base Excess 18 H VBG pH 7.46 7.49 VBG pCO2 43 41 VBG pO2 98 H 39 D VBG Base Excess 6 H 7 H 06/25/24 06/26/24 06/27/24 05:04 12:08 04:54 ABG pH 7.47 H 7.48 H ABG pCO2 43 45 ABG pO2 60 L 41 L* ABG HCO3 31 H 34 H ABG O2 Saturation 92 77 L ABG Base Excess 6 H 9 H VBG pH 7.43 VBG pCO2 47 VBG pO2 35 VBG Base Excess 6 H 06/27/24 06/28/24 06/28/24 06:23 04:27 13:19 ABG pH 7.47 H 7.55 H ABG pCO2 46 41 ABG pO2 157 H D 78 L D ABG HCO3 34 H 36 H ABG O2 Saturation 100 H 98 ABG Base Excess 9 H 13 H VBG pH 7.56 VBG pCO2 41 VBG pO2 41 VBG Base Excess 13 H 06/29/24 07/01/24 07/02/24 15:15 06:59 05:03 ABG pH 7.39 7.55 H D ABG pCO2 67 H 41 D ABG pO2 80 L 99 ABG HCO3 41 H 36 H ABG O2 Saturation 95 99 H ABG Base Excess 13 H 12 H VBG pH 7.61 VBG pCO2 40 VBG pO2 76 H D VBG Base Excess 18 H 07/04/24 07/05/24 07/06/24 07:54 04:02 04:15 ABG pH 7.50 H 7.49 H 7.49 H ABG pCO2 40 45 45 ABG pO2 70 L D 63 L 108 D ABG HCO3 31 H 34 H 34 H ABG O2 Saturation 96 94 99 H ABG Base Excess 8 H 9 H 9 H VBG pH VBG pCO2 VBG pO2 VBG Base Excess Quality Measures Quality Measures VTE prophylaxis Assessment & Plan Assessment Current Active Medications: Generic Name Dose Route Start Last Admin Trade Name Freq PRN Reason Stop Dose Admin Acetaminophen 650 mg 06/15/24 13:50 Acetaminophen Supp 650 Mg Supp HI 07/15/24 13:49 Q4HR PRN PAIN SCALE 1-3 (mild Acetaminophen 650 mg 06/19/24 07:27 07/02/24 04:39 Acetaminophen Noreen 325 Mg/10 Ml Udc NG 07/19/24 07:26 650 mg Q4HR PRN Administration Pain Or Fever > 100.4 Protocol Al Hydrox/Mg Hydrox/Simethicone 30 ml 06/15/24 13:50 Mg Hyd/Al Hyd/[place] (Maalox Reg) Susp 30 Ml Udc NG 07/15/24 13:49 Q4HR PRN Heartburn or Upset Stomach Albuterol 2.5 mg 07/04/24 15:00 07/12/24 06:05 Albuterol Rt 2.5 Mg/0.5 Ml Nebu INH 08/03/24 14:59 2.5 mg Q8HRRT LIZ Administration Aspirin 81 mg 06/23/24 09:00 07/11/24 09:47 Aspirin 81 Mg Chew PO 07/23/24 08:59 81 mg QDAY LIZ Administration Atorvastatin Calcium 40 mg 06/21/24 21:00 07/11/24 20:28 Atorvastatin Calcium 20 Mg Tablet PO 07/21/24 20:59 40 mg HS LIZ Administration Calcium Carbonate 600 mg 06/23/24 09:00 07/11/24 09:47 Calcium Carbonate 600 Mg Tablet NG 07/23/24 08:59 600 mg QDAY LIZ Administration Dextrose 25 ml 06/24/24 13:46 Dextrose 50%-Water Inj 50 Ml Syringe IV 07/24/24 13:45 Q15MIN PRN BG 50-70 responsive npo pt Dextrose 50 ml 06/24/24 13:46 07/04/24 05:17 Dextrose 50%-Water Inj 50 Ml Syringe IV 07/24/24 13:45 50 ml Q15MIN PRN Administration BG <50 OR BG <70 & pt unresponsive Enoxaparin Sodium 30 mg 07/05/24 10:00 07/11/24 09:46 Enoxaparin Sod Inj 30 Mg/0.3 Ml Syringe SC 07/19/24 09:59 30 mg QDAY LIZ Administration Ferrous Sulfate 300 mg 06/25/24 09:00 07/11/24 09:46 Ferrous Sulfate 300 Mg/5 Ml Udc NG 07/25/24 08:59 300 mg QDAY LIZ Administration Fludrocortisone Acetate 0.05 mg 07/08/24 09:00 07/10/24 10:01 Fludrocortisone Acetate 0.1 Mg Tablet PO 08/07/24 08:59 0.05 mg Q48H LIZ Administration Glucagon 1 mg 06/24/24 13:46 Glucagon Inj 1 Mg Vial IM Q15MIN PRN BG <70, and no IV access Cefazolin Sodium 2 gm in 100 mls @ 100 mls/hr 07/09/24 14:00 07/12/24 05:20 Ancef 2gm Ivpb IV 07/16/24 13:59 100 mls/hr Q8HR LIZ Administration Insulin Human Lispro 0 unit 06/24/24 18:00 07/12/24 05:20 Insulin Lispro (Admelog) 1 Unit/0.01 Ml Unit SC 07/24/24 17:59 Not Given Q6HR LIZ Protocol Magnesium Hydroxide 30 ml 06/15/24 13:50 Milk Of Magnesia Susp 30 Ml Udc NG 07/15/24 13:49 QDAY PRN CONSTIPATION Midodrine 5 mg 07/10/24 17:00 07/12/24 05:20 Midodrine 5 Mg Tablet GT 08/09/24 16:59 5 mg QID LIZ Administration Multivitamins/Minerals 15 ml 06/19/24 15:15 07/11/24 09:46 Multivitamin 15 Ml Udc NG 07/19/24 15:14 15 ml QDAY LIZ Administration Pantoprazole Sodium 40 mg 06/16/24 09:00 07/11/24 09:46 Pantoprazole Inj 40 Mg Vial IVP 07/16/24 08:59 40 mg QDAY LIZ Administration Pharmacy Consult 1 each 06/15/24 18:27 Pharmacy To Consult Pneumovacc XX 07/15/24 18:26 PRN PRN CONSULT Potassium Phos/Sodium Phos 1 packet 06/28/24 11:00 07/11/24 20:28 [facility] 1 Packet (1.5 Gm) PO 07/28/24 10:59 1 packet BID LIZ Administration Sertraline HCl 100 mg 06/23/24 15:30 07/11/24 09:47 Sertraline Hcl 25 Mg Tablet NG 07/23/24 15:29 100 mg QDAY LIZ Administration Simethicone 40 mg 07/02/24 09:30 07/11/24 20:28 Simethicone 40 Mg/0.6 Ml Oral Syringe GT 08/01/24 09:29 40 mg BID LIZ Administration Sodium Chloride 3 ml 07/04/24 10:05 07/12/24 06:05 Sodium Chloride Rt Nore[place] 0.9% 3 Ml Nebu INH 08/03/24 10:04 3 ml PRN PRN Administration SOLN Plan 54 Y/O F with PMHx significant for Downs Syndrome, Schizophrenia,blindness, IBS, presents with chief complaint of AMS, last known normal 9 pm last night, initally admitted to ICU for septic shock requiring pressors and acute hypoxic respiratory failure requiring intubation, pt is downgraded to telemetry to resume care until LTACH placement. #AHRF 2/ #Aspiration Pneumonia #MSSA pneumonia - resolved #MSSA bacteremia #s/p tracheostomy Patient has history of Down syndrome, risk for aspiration pneumonia. Bacterial and viral pneumonia both possible. Influenza panel negative. MRSA screen negative. Sedated and mechanically ventilated Extubated on 06/24/24, but reintubated on 06/25 Patient extubated for second time, still severely hypoxic, requiring high flow nasal cannula. Patient desatted despite several hours of manual bagging, required reintubation. Unable to successfully extubate. Underwent tracheostomy on 07/03/24 for long-term mechanical ventilation. On 10L oxygen blow by. Sputum culture positive for MSSA pneumonia on 06/25 Plan: -continue renaly dosed cefazolin 2 g BID daily -nocturnal ventilation set to previous settings PS mode: PS 5.0, PEEP 8.0, FiO2 50 -During day time, tracheostomy blow-by as tolerated #Hypotension- resolved Patient was treated for septic shock with vasopressors. MAP improved but patient's BP remains low. MAP is above 50. Continue BP support with midodrine. -continue midodrine 10 mg TID -MAP goal > 50 #Severe protein malnutrition #s/p PEG tube placement Patient BMI 14.9. Patient unable to provide history, per caregiver patient has good oral intake most times, has been malnourished for years due to chronic diarrhea, has not had significant weight loss recently. Patient has very little muscle mass, temporal wasting, sunken eyes. GI was consulted and patient underwent PEG tube placement on 07/03. Dietary team was consulted and patient to be started on Vital 1.2 at 10 mL/h. Advance 10 mL every 8 hours to goal rate of 35 mL/h. Plan: -tube feeding goal 35 ml/h with 50ml water flushed Q6h -renal panel every other day -monitoring/repleting of potassium, phosphorous, magnesium #Hx IBS Patient history of IBS. Patient had diarrhea for 3 days prior to admission, not unusual for patient. Per caregiver, patient also experiences diarrhea after any food intake. Possible underlying malabsorption (celiac vs pancreatic insufficiency vs lactose deficiency) -Monitor bowel movements -stool osmolarity test pending -Treat metabolic abnormalities as needed #Adrenal insufficiency Suspect due to chronic malnutrition. Patient arrived with hypotension, hypernatremia. Patient has been hypokalemic despite repletion and bradycardic. Clinical improvement with hydrocortisone followed by worsening when dosage reduced. Patient continues to present with hypokalemia even with yesterday's dose reduction. Continue to wean from 0.1 mg to 0.05 mg daily. Plan: -Decrease fludrocortisone from 0.1 mg to 0.05 mg daily on 07/05 -Received first 0.05mg fludrocortisone dose on 07/06 - fludrocoristone to 0.05mg every day -monitor sodium and potassium #Acute encephalopathy-resolved Multifactorial: hypoxia, S/p shock, electrolytes imbalance Low density areas in both basal ganglia seen on head CT -Neurologist Dr. Jaeger was consulted. -EEG completed-interpreted as abnormal with diffuse slowing suggestive of a diffuse encephalopathy of hypoxic origin per neurology. #Hx Schizophrenia #Hx Depression -Held patient's home medication risperidone 4mg BID, Ziprasidone 60mg BID, and zolpidem 10mg PO HS. -continue with Sertraline 100mg daily #Hyperglycemia-resolved Patient had mild hyperglycemia that was uptrending. No history of diabetes. Likely due to steroid treatment. -Started on SSI lispro q6h -Monitor daily glucose checks #Macrocytic anemia Patient hemoglobin 9.2, MCV 114. No previous labs to compare to. No obvious signs of acute bleeding. On 06/23: Hb 6.9, transfused 1 unit PRBC Folate and B12 not depleted. -Monitor and replete for hgb < 7.0 -Patient received 1 unit PRBC (07/07) Health maintenance: Diet: Vital tube feeds at 35 ml/hr DVT prophylaxis: Lovenox 30 daily G.I prophylaxis: Pantoprazole Code: Full code Diso: Tele for LTACH placement hold Plan of care discussed in attending Dr. Jane Ogden pgy 2 Attending Provider Attestation/Addendum I reviewed labs, imaging, EKG, home medications and prior available records. Face to face evaluation was performed by me. I have personally examined the patient and discussed assessment and plan with the IM team. I reviewed the resident note and agree with the plan with exceptions as below. Acute hypoxic respiratory failure Aspiration pneumonia Shock, possibly septic S/p tracheostomy Status post PEG tube placement Malnutrition, CVA, BMI less than 15 MSSA bacteremia Down syndrome Acute hypotension Possible cortisol deficiency Added midodrine to fludrocortisone due to hypotension. Discussed with Dr. Roe: Declined to accept the patient back to SNF given her hypotension. Discussed with social media project manager: Will plan for LTAC Continue PEG tube feeds and oxygen via trach/T-piece Cefazolin till 07/13 Discussed with social media project manager: Found an LTAC however pending authorization
[2024-07-12] MEDS: PANTOPRAZOLE INJ 40 MG VIAL IVP (09:36)
[2024-07-12] MEDS: Ferrous Sulfate 300 MG/5 ML UDC NG (09:36)
[2024-07-12] MEDS: CALCIUM CARBONATE 600 MG TABLET NG (09:36)
[2024-07-12] MEDS: ENOXAPARIN SOD INJ 30 MG/0.3 ML SYRINGE SC (09:36)
[2024-07-12] MEDS: SERTRALINE HCL 25 MG TABLET 100 MG NG (09:36)
[2024-07-12] MEDS: MULTIVITAMIN 15 ML UDC NG (09:36)
[2024-07-12] MEDS: SIMETHICONE 40 MG/0.6 ML ORAL SYRINGE GT ×2 (09:36→21:12)
[2024-07-12] MEDS: NAPH,KPH MBDB 1 PACKET (1.5 GM) PO ×2 (09:36→21:12)
[2024-07-12] MEDS: ASPIRIN 81 MG CHEW PO (09:36)
[2024-07-12] MEDS: FLUDROCORTISONE ACETATE 0.1 MG TABLET 0.05 MG PO (09:37)
[2024-07-12] MEDS: MIDODRINE 5 MG TABLET 10 MG GT ×2 (13:56→21:12)
--- NOTE | 2024-07-12 13:59 | ESPR_ITS ---
Documentation for date of: 07/12/24 Subjective Subjective Interval history: Patient examined PEG site evaluated Tolerating vital at 35 cc/h No gastric residue issues as per the attending staff air defense officer Exam Vital Signs Temp Pulse Resp BP Pulse Ox O2 Del Method O2 Flow Rate 98.9 F 70 19 91/57 L 95 T-Piece 8.5 07/12/24 12:00 07/12/24 13:56 07/12/24 12:00 07/12/24 13:56 07/12/24 12:00 07/12/24 12:00 07/12/24 12:00 FiO2 35 07/12/24 12:00 Objective Labs 07/11/24 08:40 07/11/24 08:40 Impressions Impression: # Failure to thrive # Enteral hyperalimentation through the PEG tube to continue ABG Interpretation ABG results: 06/15/24 06/15/24 06/15/24 11:06 14:05 17:00 ABG pH 7.23 L 7.33 L D 7.34 L ABG pCO2 69 H 56 H D 57 H ABG pO2 153 H 67 L D 65 L ABG HCO3 29 H 29 H 30 H ABG O2 Saturation 99 H 92 91 ABG Base Excess 0 3 4 H VBG pH VBG pCO2 VBG pO2 VBG Base Excess 06/16/24 06/17/24 06/18/24 04:04 04:36 04:04 ABG pH 7.35 7.42 7.53 H D ABG pCO2 57 H 54 H 57 H ABG pO2 58 L* 77 L 73 L ABG HCO3 31 H 35 H 47 H ABG O2 Saturation 88 L 96 96 ABG Base Excess 5 H 9 H 22 H VBG pH VBG pCO2 VBG pO2 VBG Base Excess 06/19/24 06/22/24 06/23/24 04:12 17:30 09:55 ABG pH 7.54 H ABG pCO2 50 H ABG pO2 61 L ABG HCO3 42 H ABG O2 Saturation 93 ABG Base Excess 18 H VBG pH 7.46 7.49 VBG pCO2 43 41 VBG pO2 98 H 39 D VBG Base Excess 6 H 7 H 06/25/24 06/26/24 06/27/24 05:04 12:08 04:54 ABG pH 7.47 H 7.48 H ABG pCO2 43 45 ABG pO2 60 L 41 L* ABG HCO3 31 H 34 H ABG O2 Saturation 92 77 L ABG Base Excess 6 H 9 H VBG pH 7.43 VBG pCO2 47 VBG pO2 35 VBG Base Excess 6 H 06/27/24 06/28/24 06/28/24 06:23 04:27 13:19 ABG pH 7.47 H 7.55 H ABG pCO2 46 41 ABG pO2 157 H D 78 L D ABG HCO3 34 H 36 H ABG O2 Saturation 100 H 98 ABG Base Excess 9 H 13 H VBG pH 7.56 VBG pCO2 41 VBG pO2 41 VBG Base Excess 13 H 06/29/24 07/01/24 07/02/24 15:15 06:59 05:03 ABG pH 7.39 7.55 H D ABG pCO2 67 H 41 D ABG pO2 80 L 99 ABG HCO3 41 H 36 H ABG O2 Saturation 95 99 H ABG Base Excess 13 H 12 H VBG pH 7.61 VBG pCO2 40 VBG pO2 76 H D VBG Base Excess 18 H 07/04/24 07/05/24 07/06/24 07:54 04:02 04:15 ABG pH 7.50 H 7.49 H 7.49 H ABG pCO2 40 45 45 ABG pO2 70 L D 63 L 108 D ABG HCO3 31 H 34 H 34 H ABG O2 Saturation 96 94 99 H ABG Base Excess 8 H 9 H 9 H VBG pH VBG pCO2 VBG pO2 VBG Base Excess Assessment & Plan A&P Narrative # Failure to thrive Plan Consent will be obtained from the appropriate authorities for placement of a PEG tube insertion under intravenous moderate sedation via fiberoptic esophageal gastroduodenoscopy Will follow the patient Other medical problems include # Acute hypoxic respiratory failure requiring endotracheal intubation and mechanical ventilation # Altered mental status # Schizophrenia # Clinically blind Thank you very much for the opportunity to participate in the care of this patient Time Spent With Patient Time: Total time spent is greater than 50% in coordination of care (as documented) at patient's floor/unit and/or counseling patient: Procedures Arterial Line Size (Gauge): 20
[2024-07-12] MEDS: ATORVASTATIN CALCIUM 20 MG TABLET 40 MG PO (21:12)
[2024-07-13] VITALS (16 sets, daily range): BP systolic 90–144; BP diastolic 46–74; PULSE 50–92; RESP 14–30; TEMP 36.4–36.8; O2SAT 93–100; BMI 15.0
--- NOTE | 2024-07-13 | PD.VPROG1 ---
Telemedicine visit statement This visit was conducted with the use of virtual visit was obtained on 07/13/24 at 0000. Documentation for date of: 07/13/24 Subjective Subjective Interval history: Patient is in telemetry, tolerating feeding, no new symptoms reported. Virtual exam Vital Signs Temp Pulse Resp BP Pulse Ox O2 Del Method O2 Flow Rate 98.1 F 64 18 113/47 L 97 T-Piece 10 07/12/24 23:41 07/12/24 23:41 07/12/24 23:41 07/12/24 23:41 07/12/24 23:41 07/12/24 23:41 07/12/24 22:53 FiO2 35 07/12/24 22:53 Objective Labs 07/11/24 08:40 07/11/24 08:40 ABG Interpretation ABG results: 06/15/24 06/15/24 06/15/24 11:06 14:05 17:00 ABG pH 7.23 L 7.33 L D 7.34 L ABG pCO2 69 H 56 H D 57 H ABG pO2 153 H 67 L D 65 L ABG HCO3 29 H 29 H 30 H ABG O2 Saturation 99 H 92 91 ABG Base Excess 0 3 4 H VBG pH VBG pCO2 VBG pO2 VBG Base Excess 06/16/24 06/17/24 06/18/24 04:04 04:36 04:04 ABG pH 7.35 7.42 7.53 H D ABG pCO2 57 H 54 H 57 H ABG pO2 58 L* 77 L 73 L ABG HCO3 31 H 35 H 47 H ABG O2 Saturation 88 L 96 96 ABG Base Excess 5 H 9 H 22 H VBG pH VBG pCO2 VBG pO2 VBG Base Excess 06/19/24 06/22/24 06/23/24 04:12 17:30 09:55 ABG pH 7.54 H ABG pCO2 50 H ABG pO2 61 L ABG HCO3 42 H ABG O2 Saturation 93 ABG Base Excess 18 H VBG pH 7.46 7.49 VBG pCO2 43 41 VBG pO2 98 H 39 D VBG Base Excess 6 H 7 H 06/25/24 06/26/24 06/27/24 05:04 12:08 04:54 ABG pH 7.47 H 7.48 H ABG pCO2 43 45 ABG pO2 60 L 41 L* ABG HCO3 31 H 34 H ABG O2 Saturation 92 77 L ABG Base Excess 6 H 9 H VBG pH 7.43 VBG pCO2 47 VBG pO2 35 VBG Base Excess 6 H 06/27/24 06/28/24 06/28/24 06:23 04:27 13:19 ABG pH 7.47 H 7.55 H ABG pCO2 46 41 ABG pO2 157 H D 78 L D ABG HCO3 34 H 36 H ABG O2 Saturation 100 H 98 ABG Base Excess 9 H 13 H VBG pH 7.56 VBG pCO2 41 VBG pO2 41 VBG Base Excess 13 H 06/29/24 07/01/24 07/02/24 15:15 06:59 05:03 ABG pH 7.39 7.55 H D ABG pCO2 67 H 41 D ABG pO2 80 L 99 ABG HCO3 41 H 36 H ABG O2 Saturation 95 99 H ABG Base Excess 13 H 12 H VBG pH 7.61 VBG pCO2 40 VBG pO2 76 H D VBG Base Excess 18 H 07/04/24 07/05/24 07/06/24 07:54 04:02 04:15 ABG pH 7.50 H 7.49 H 7.49 H ABG pCO2 40 45 45 ABG pO2 70 L D 63 L 108 D ABG HCO3 31 H 34 H 34 H ABG O2 Saturation 96 94 99 H ABG Base Excess 8 H 9 H 9 H VBG pH VBG pCO2 VBG pO2 VBG Base Excess Assessment & Plan Assessment (1) Acute respiratory failure with hypoxia: Status: Acute Assessment and plan: Stable status post tracheostomy Maintaining oxygen saturation (2) Altered mental status: Status: Acute Assessment and plan: Significant improvement noted Continue with the current management
[2024-07-13] MEDS: ceFAZolin/D5W 2 GM IV 2 GM/100 ML BAG IV ×3 (05:57→21:18)
[2024-07-13] MEDS: MIDODRINE 5 MG TABLET 10 MG GT ×3 (05:57→21:17)
[2024-07-13] MEDS: ALBUTEROL RT 2.5 MG/0.5 ML NEBU INH ×3 (06:20→22:48)
[2024-07-13] MEDS: SODIUM CHLORIDE RT SOL 0.9% 3 ML NEBU INH ×3 (06:21→22:48)
[2024-07-13] MEDS: ENOXAPARIN SOD INJ 30 MG/0.3 ML SYRINGE SC (08:30)
[2024-07-13] MEDS: SIMETHICONE 40 MG/0.6 ML ORAL SYRINGE GT ×2 (08:31→21:18)
[2024-07-13] MEDS: PANTOPRAZOLE INJ 40 MG VIAL IVP (08:31)
[2024-07-13] MEDS: CALCIUM CARBONATE 600 MG TABLET NG (08:31)
[2024-07-13] MEDS: MULTIVITAMIN 15 ML UDC NG (08:31)
[2024-07-13] MEDS: SERTRALINE HCL 25 MG TABLET 100 MG NG (08:31)
[2024-07-13] MEDS: ASPIRIN 81 MG CHEW PO (08:31)
[2024-07-13] MEDS: Ferrous Sulfate 300 MG/5 ML UDC NG (08:31)
[2024-07-13] MEDS: NAPH,KPH MBDB 1 PACKET (1.5 GM) PO ×2 (08:31→21:18)
[2024-07-13] MEDS: INSULIN LISPRO (AdmeLOG) 1 UNIT/0.01 ML UNIT SC (11:48)
--- NOTE | 2024-07-13 13:43 | ESPR_ITS ---
Documentation for date of: 07/13/24 Subjective Subjective Interval history: 07/13: no acute overnight events. Pt is s/p tracheostomy on blowby in the morning. Pt is tolerating tube feedings well at goal rate of PEG tube feedings of 35ml/h with 50ml of water flushes Q6h. Pt is accepted at [facility] and awaiting insurance approval. Medical management remains the same as previously documented. Exam Vital Signs Temp Pulse Resp BP Pulse Ox O2 Del Method O2 Flow Rate 98.3 F 62 17 98/71 99 Mechanical Ventilation 10 07/13/24 12:00 07/13/24 12:00 07/13/24 12:00 07/13/24 12:00 07/13/24 12:00 07/13/24 08:00 07/13/24 06:23 FiO2 50 07/13/24 08:00 Narrative Exam Gen: Extremely cachectic, makes continuous orofacial movements, non verbal HEENT: Dry mucous membranes. Left eye heavily scarred, right eye glassy. CVS: normal S1 and S2. No M/R/G. Resp: No rhonchi, rales, crackles or wheezing. Abd: soft, non-tender, non-distended, PEG tube no active leaking MSK: No edema. Multiple old scars/wounds on all extremities. Bruising at left/right inguinal folds. Neuro: unable to evaluate, does not seem to track movement Objective Labs 07/11/24 08:40 07/11/24 08:40 ABG Interpretation ABG results: 06/15/24 06/15/24 06/15/24 11:06 14:05 17:00 ABG pH 7.23 L 7.33 L D 7.34 L ABG pCO2 69 H 56 H D 57 H ABG pO2 153 H 67 L D 65 L ABG HCO3 29 H 29 H 30 H ABG O2 Saturation 99 H 92 91 ABG Base Excess 0 3 4 H VBG pH VBG pCO2 VBG pO2 VBG Base Excess 06/16/24 06/17/24 06/18/24 04:04 04:36 04:04 ABG pH 7.35 7.42 7.53 H D ABG pCO2 57 H 54 H 57 H ABG pO2 58 L* 77 L 73 L ABG HCO3 31 H 35 H 47 H ABG O2 Saturation 88 L 96 96 ABG Base Excess 5 H 9 H 22 H VBG pH VBG pCO2 VBG pO2 VBG Base Excess 06/19/24 06/22/24 06/23/24 04:12 17:30 09:55 ABG pH 7.54 H ABG pCO2 50 H ABG pO2 61 L ABG HCO3 42 H ABG O2 Saturation 93 ABG Base Excess 18 H VBG pH 7.46 7.49 VBG pCO2 43 41 VBG pO2 98 H 39 D VBG Base Excess 6 H 7 H 06/25/24 06/26/24 06/27/24 05:04 12:08 04:54 ABG pH 7.47 H 7.48 H ABG pCO2 43 45 ABG pO2 60 L 41 L* ABG HCO3 31 H 34 H ABG O2 Saturation 92 77 L ABG Base Excess 6 H 9 H VBG pH 7.43 VBG pCO2 47 VBG pO2 35 VBG Base Excess 6 H 06/27/24 06/28/24 06/28/24 06:23 04:27 13:19 ABG pH 7.47 H 7.55 H ABG pCO2 46 41 ABG pO2 157 H D 78 L D ABG HCO3 34 H 36 H ABG O2 Saturation 100 H 98 ABG Base Excess 9 H 13 H VBG pH 7.56 VBG pCO2 41 VBG pO2 41 VBG Base Excess 13 H 06/29/24 07/01/24 07/02/24 15:15 06:59 05:03 ABG pH 7.39 7.55 H D ABG pCO2 67 H 41 D ABG pO2 80 L 99 ABG HCO3 41 H 36 H ABG O2 Saturation 95 99 H ABG Base Excess 13 H 12 H VBG pH 7.61 VBG pCO2 40 VBG pO2 76 H D VBG Base Excess 18 H 07/04/24 07/05/24 07/06/24 07:54 04:02 04:15 ABG pH 7.50 H 7.49 H 7.49 H ABG pCO2 40 45 45 ABG pO2 70 L D 63 L 108 D ABG HCO3 31 H 34 H 34 H ABG O2 Saturation 96 94 99 H ABG Base Excess 8 H 9 H 9 H VBG pH VBG pCO2 VBG pO2 VBG Base Excess Quality Measures Quality Measures VTE prophylaxis Assessment & Plan Assessment Current Active Medications: Generic Name Dose Route Start Last Admin Trade Name Freq PRN Reason Stop Dose Admin Acetaminophen 650 mg 06/15/24 13:50 Acetaminophen Supp 650 Mg Supp WI 07/15/24 13:49 Q4HR PRN PAIN SCALE 1-3 (mild Acetaminophen 650 mg 06/19/24 07:27 07/02/24 04:39 Acetaminophen Noreen 325 Mg/10 Ml Udc NG 07/19/24 07:26 650 mg Q4HR PRN Administration Pain Or Fever > 100.4 Protocol Al Hydrox/Mg Hydrox/Simethicone 30 ml 06/15/24 13:50 Mg Hyd/Al Hyd/[place] (Maalox Reg) Susp 30 Ml Udc NG 07/15/24 13:49 Q4HR PRN Heartburn or Upset Stomach Albuterol 2.5 mg 07/04/24 15:00 07/13/24 06:20 Albuterol Rt 2.5 Mg/0.5 Ml Nebu INH 08/03/24 14:59 2.5 mg Q8HRRT LIZ Administration Aspirin 81 mg 06/23/24 09:00 07/13/24 08:31 Aspirin 81 Mg Chew PO 07/23/24 08:59 81 mg QDAY LIZ Administration Atorvastatin Calcium 40 mg 06/21/24 21:00 07/12/24 21:12 Atorvastatin Calcium 20 Mg Tablet PO 07/21/24 20:59 40 mg HS LIZ Administration Calcium Carbonate 600 mg 06/23/24 09:00 07/13/24 08:31 Calcium Carbonate 600 Mg Tablet NG 07/23/24 08:59 600 mg QDAY LIZ Administration Dextrose 25 ml 06/24/24 13:46 Dextrose 50%-Water Inj 50 Ml Syringe IV 07/24/24 13:45 Q15MIN PRN BG 50-70 responsive npo pt Dextrose 50 ml 06/24/24 13:46 07/04/24 05:17 Dextrose 50%-Water Inj 50 Ml Syringe IV 07/24/24 13:45 50 ml Q15MIN PRN Administration BG <50 OR BG <70 & pt unresponsive Enoxaparin Sodium 30 mg 07/05/24 10:00 07/13/24 08:30 Enoxaparin Sod Inj 30 Mg/0.3 Ml Syringe SC 07/19/24 09:59 30 mg QDAY LIZ Administration Ferrous Sulfate 300 mg 06/25/24 09:00 07/13/24 08:31 Ferrous Sulfate 300 Mg/5 Ml Udc NG 07/25/24 08:59 300 mg QDAY LIZ Administration Fludrocortisone Acetate 0.05 mg 07/08/24 09:00 07/12/24 09:37 Fludrocortisone Acetate 0.1 Mg Tablet PO 08/07/24 08:59 0.05 mg Q48H LIZ Administration Glucagon 1 mg 06/24/24 13:46 Glucagon Inj 1 Mg Vial IM Q15MIN PRN BG <70, and no IV access Cefazolin Sodium 2 gm in 100 mls @ 100 mls/hr 07/09/24 14:00 07/13/24 05:57 Ancef 2gm Ivpb IV 07/16/24 13:59 100 mls/hr Q8HR LIZ Administration Insulin Human Lispro 0 unit 06/24/24 18:00 07/13/24 11:48 Insulin Lispro (Admelog) 1 Unit/0.01 Ml Unit SC 07/24/24 17:59 1 unit Q6HR LIZ Administration Protocol Magnesium Hydroxide 30 ml 06/15/24 13:50 Milk Of Magnesia Susp 30 Ml Udc NG 07/15/24 13:49 QDAY PRN CONSTIPATION Midodrine 10 mg 07/12/24 14:00 07/13/24 05:57 Midodrine 5 Mg Tablet GT 08/11/24 13:59 10 mg TID LIZ Administration Multivitamins/Minerals 15 ml 06/19/24 15:15 07/13/24 08:31 Multivitamin 15 Ml Udc NG 07/19/24 15:14 15 ml QDAY LIZ Administration Pantoprazole Sodium 40 mg 06/16/24 09:00 07/13/24 08:31 Pantoprazole Inj 40 Mg Vial IVP 07/16/24 08:59 40 mg QDAY LIZ Administration Pharmacy Consult 1 each 06/15/24 18:27 Pharmacy To Consult Pneumovacc XX 07/15/24 18:26 PRN PRN CONSULT Potassium Phos/Sodium Phos 1 packet 06/28/24 11:00 07/13/24 08:31 [facility] Mbdb 1 Packet (1.5 Gm) PO 07/28/24 10:59 1 packet BID LIZ Administration Sertraline HCl 100 mg 06/23/24 15:30 07/13/24 08:31 Sertraline Hcl 25 Mg Tablet NG 07/23/24 15:29 100 mg QDAY LIZ Administration Simethicone 40 mg 07/02/24 09:30 07/13/24 08:31 Simethicone 40 Mg/0.6 Ml Oral Syringe GT 08/01/24 09:29 40 mg BID LIZ Administration Sodium Chloride 3 ml 07/04/24 10:05 07/13/24 06:21 Sodium Chloride Rt Noreen 0.9% 3 Ml Nebu INH 08/03/24 10:04 3 ml PRN PRN Administration SOLN Plan 54 Y/O F with PMHx significant for Downs Syndrome, Schizophrenia,blindness, IBS, presents with chief complaint of AMS, last known normal 9 pm last night, initally admitted to ICU for septic shock requiring pressors and acute hypoxic respiratory failure requiring intubation, pt is downgraded to telemetry to resume care until LTACH placement. #AHRF 2/ #Aspiration Pneumonia #MSSA pneumonia - resolved #MSSA bacteremia #s/p tracheostomy Patient has history of Down syndrome, risk for aspiration pneumonia. Bacterial and viral pneumonia both possible. Influenza panel negative. MRSA screen negative. Sedated and mechanically ventilated Extubated on 06/24/24, but reintubated on 06/25 Patient extubated for second time, still severely hypoxic, requiring high flow nasal cannula. Patient desatted despite several hours of manual bagging, required reintubation. Unable to successfully extubate. Underwent tracheostomy on 07/03/24 for long- term mechanical ventilation. On 10L oxygen blow by. Sputum culture positive for MSSA pneumonia on 06/25 Plan: -continue renaly dosed cefazolin 2 g BID daily -nocturnal ventilation set to previous settings PS mode: PS 5.0, PEEP 8.0, FiO2 50 -During day time, tracheostomy blow-by as tolerated #Hypotension- resolved Patient was treated for septic shock with vasopressors. MAP improved but patient's BP remains low. MAP is above 50. Continue BP support with midodrine. -continue midodrine 10 mg TID -MAP goal > 50 #Severe protein malnutrition #s/p PEG tube placement Patient BMI 14.9. Patient unable to provide history, per caregiver patient has good oral intake most times, has been malnourished for years due to chronic diarrhea, has not had significant weight loss recently. Patient has very little muscle mass, temporal wasting, sunken eyes. GI was consulted and patient underwent PEG tube placement on 07/03. Dietary team was consulted and patient to be started on Vital 1.2 at 10 mL/h. Advance 10 mL every 8 hours to goal rate of 35 mL/h. Plan: -tube feeding goal 35 ml/h with 50ml water flushed Q6h -renal panel every other day -monitoring/repleting of potassium, phosphorous, magnesium #Hx IBS Patient history of IBS. Patient had diarrhea for 3 days prior to admission, not unusual for patient. Per caregiver, patient also experiences diarrhea after any food intake. Possible underlying malabsorption (celiac vs pancreatic insufficiency vs lactose deficiency) -Monitor bowel movements -stool osmolarity test pending -Treat metabolic abnormalities as needed #Adrenal insufficiency Suspect due to chronic malnutrition. Patient arrived with hypotension, hypernatremia. Patient has been hypokalemic despite repletion and bradycardic. Clinical improvement with hydrocortisone followed by worsening when dosage reduced. Patient continues to present with hypokalemia even with yesterday's dose reduction. Continue to wean from 0.1 mg to 0.05 mg daily. Plan: -Decrease fludrocortisone from 0.1 mg to 0.05 mg daily on 07/05 -Received first 0.05mg fludrocortisone dose on 07/06 - fludrocoristone to 0.05mg every day -monitor sodium and potassium #Acute encephalopathy-resolved Multifactorial: hypoxia, S/p shock, electrolytes imbalance Low density areas in both basal ganglia seen on head CT -Neurologist Dr. Jaeger was consulted. -EEG completed-interpreted as abnormal with diffuse slowing suggestive of a diffuse encephalopathy of hypoxic origin per neurology. #Hx Schizophrenia #Hx Depression -Held patient's home medication risperidone 4mg BID, Ziprasidone 60mg BID, and zolpidem 10mg PO HS. -continue with Sertraline 100mg daily #Hyperglycemia-resolved Patient had mild hyperglycemia that was uptrending. No history of diabetes. Likely due to steroid treatment. -Started on SSI lispro q6h -Monitor daily glucose checks #Macrocytic anemia Patient hemoglobin 9.2, MCV 114. No previous labs to compare to. No obvious signs of acute bleeding. On 06/23: Hb 6.9, transfused 1 unit PRBC Folate and B12 not depleted. -Monitor and replete for hgb < 7.0 -Patient received 1 unit PRBC (07/07) Health maintenance: Diet: Vital tube feeds at 35 ml/hr with 50ml of water flushes Q6h DVT prophylaxis: Lovenox 30 daily G.I prophylaxis: Pantoprazole Code: Full code Diso: Tele for LTACH placement hold Assessment and plan discussed with my attending physician Dr. Jane Tran (PGY-1)- Internal medicine resident Attending Provider Attestation/Addendum I reviewed labs, imaging, EKG, home medications and prior available records. Face to face evaluation was performed by me. I have personally examined the patient and discussed assessment and plan with the IM team. I reviewed the resident note and agree with the plan with exceptions as below. Acute hypoxic respiratory failure Aspiration pneumonia Shock, possibly septic S/p tracheostomy Status post PEG tube placement Malnutrition, CVA, BMI less than 15 MSSA bacteremia Down syndrome Acute hypotension Possible cortisol deficiency Added midodrine to fludrocortisone due to hypotension. Discussed with Dr. Roe: Declined to accept the patient back to SNF given her hypotension. Discussed with social media marketing analyst: Will plan for LTAC Continue PEG tube feeds and oxygen via trach/T-piece Cefazolin till 07/13 Discussed with social media marketing analyst: Found an LTAC however pending authorization
--- NOTE | 2024-07-13 13:52 | PD.IMPROG ---
Documentation for date of: 07/13/24 Subjective Subjective Interval history: Tolerating vital at 35 cc an hour Exam Vital Signs Temp Pulse Resp BP Pulse Ox O2 Del Method O2 Flow Rate 98.3 F 62 17 98/71 99 Mechanical Ventilation 10 07/13/24 12:00 07/13/24 12:00 07/13/24 12:00 07/13/24 12:00 07/13/24 12:00 07/13/24 08:00 07/13/24 06:23 FiO2 50 07/13/24 08:00 Routine Respiratory Exam Comments: Normal to auscultation Routine Abdominal Exam Comments: Soft nontender PEG tube in place Objective Labs 07/11/24 08:40 07/14/24 08:10 Impressions Impression: # Failure to thrive # Hyperalimentation via the PEG tube to continue ABG Interpretation ABG results: 06/15/24 06/15/24 06/15/24 11:06 14:05 17:00 ABG pH 7.23 L 7.33 L D 7.34 L ABG pCO2 69 H 56 H D 57 H ABG pO2 153 H 67 L D 65 L ABG HCO3 29 H 29 H 30 H ABG O2 Saturation 99 H 92 91 ABG Base Excess 0 3 4 H VBG pH VBG pCO2 VBG pO2 VBG Base Excess 06/16/24 06/17/24 06/18/24 04:04 04:36 04:04 ABG pH 7.35 7.42 7.53 H D ABG pCO2 57 H 54 H 57 H ABG pO2 58 L* 77 L 73 L ABG HCO3 31 H 35 H 47 H ABG O2 Saturation 88 L 96 96 ABG Base Excess 5 H 9 H 22 H VBG pH VBG pCO2 VBG pO2 VBG Base Excess 06/19/24 06/22/24 06/23/24 04:12 17:30 09:55 ABG pH 7.54 H ABG pCO2 50 H ABG pO2 61 L ABG HCO3 42 H ABG O2 Saturation 93 ABG Base Excess 18 H VBG pH 7.46 7.49 VBG pCO2 43 41 VBG pO2 98 H 39 D VBG Base Excess 6 H 7 H 06/25/24 06/26/24 06/27/24 05:04 12:08 04:54 ABG pH 7.47 H 7.48 H ABG pCO2 43 45 ABG pO2 60 L 41 L* ABG HCO3 31 H 34 H ABG O2 Saturation 92 77 L ABG Base Excess 6 H 9 H VBG pH 7.43 VBG pCO2 47 VBG pO2 35 VBG Base Excess 6 H 06/27/24 06/28/24 06/28/24 06:23 04:27 13:19 ABG pH 7.47 H 7.55 H ABG pCO2 46 41 ABG pO2 157 H D 78 L D ABG HCO3 34 H 36 H ABG O2 Saturation 100 H 98 ABG Base Excess 9 H 13 H VBG pH 7.56 VBG pCO2 41 VBG pO2 41 VBG Base Excess 13 H 06/29/24 07/01/24 07/02/24 15:15 06:59 05:03 ABG pH 7.39 7.55 H D ABG pCO2 67 H 41 D ABG pO2 80 L 99 ABG HCO3 41 H 36 H ABG O2 Saturation 95 99 H ABG Base Excess 13 H 12 H VBG pH 7.61 VBG pCO2 40 VBG pO2 76 H D VBG Base Excess 18 H 07/04/24 07/05/24 07/06/24 07:54 04:02 04:15 ABG pH 7.50 H 7.49 H 7.49 H ABG pCO2 40 45 45 ABG pO2 70 L D 63 L 108 D ABG HCO3 31 H 34 H 34 H ABG O2 Saturation 96 94 99 H ABG Base Excess 8 H 9 H 9 H VBG pH VBG pCO2 VBG pO2 VBG Base Excess Assessment & Plan A&P Narrative # Failure to thrive Plan Consent will be obtained from the appropriate authorities for placement of a PEG tube insertion under intravenous moderate sedation via fiberoptic esophageal gastroduodenoscopy Will follow the patient Other medical problems include # Acute hypoxic respiratory failure requiring endotracheal intubation and mechanical ventilation # Altered mental status # Schizophrenia # Clinically blind Thank you very much for the opportunity to participate in the care of this patient Time Spent With Patient Time: Total time spent is greater than 50% in coordination of care (as documented) at patient's floor/unit and/or counseling patient: Procedures Arterial Line Size (Gauge): 20
[2024-07-13] MEDS: ATORVASTATIN CALCIUM 20 MG TABLET 40 MG PO (21:18)
--- NOTE | 2024-07-13 23:13 | PD.VPROG1 ---
Telemedicine visit statement This visit was conducted with the use of virtual visit was obtained on 07/13/24 at 2313. Documentation for date of: 07/13/24 Subjective Subjective Interval history: Patient is in telemetry, tolerating feeding, no new symptoms reported. Virtual exam Vital Signs Temp Pulse Resp BP Pulse Ox O2 Del Method O2 Flow Rate 98.2 F 78 30 H 91/54 L 96 Mechanical Ventilation 10 07/13/24 20:00 07/13/24 22:48 07/13/24 22:48 07/13/24 21:17 07/13/24 22:48 07/13/24 20:00 07/13/24 22:48 FiO2 35 07/13/24 22:48 Objective Labs 07/11/24 08:40 07/11/24 08:40 ABG Interpretation ABG results: 06/15/24 06/15/24 06/15/24 11:06 14:05 17:00 ABG pH 7.23 L 7.33 L D 7.34 L ABG pCO2 69 H 56 H D 57 H ABG pO2 153 H 67 L D 65 L ABG HCO3 29 H 29 H 30 H ABG O2 Saturation 99 H 92 91 ABG Base Excess 0 3 4 H VBG pH VBG pCO2 VBG pO2 VBG Base Excess 06/16/24 06/17/24 06/18/24 04:04 04:36 04:04 ABG pH 7.35 7.42 7.53 H D ABG pCO2 57 H 54 H 57 H ABG pO2 58 L* 77 L 73 L ABG HCO3 31 H 35 H 47 H ABG O2 Saturation 88 L 96 96 ABG Base Excess 5 H 9 H 22 H VBG pH VBG pCO2 VBG pO2 VBG Base Excess 06/19/24 06/22/24 06/23/24 04:12 17:30 09:55 ABG pH 7.54 H ABG pCO2 50 H ABG pO2 61 L ABG HCO3 42 H ABG O2 Saturation 93 ABG Base Excess 18 H VBG pH 7.46 7.49 VBG pCO2 43 41 VBG pO2 98 H 39 D VBG Base Excess 6 H 7 H 06/25/24 06/26/24 06/27/24 05:04 12:08 04:54 ABG pH 7.47 H 7.48 H ABG pCO2 43 45 ABG pO2 60 L 41 L* ABG HCO3 31 H 34 H ABG O2 Saturation 92 77 L ABG Base Excess 6 H 9 H VBG pH 7.43 VBG pCO2 47 VBG pO2 35 VBG Base Excess 6 H 06/27/24 06/28/24 06/28/24 06:23 04:27 13:19 ABG pH 7.47 H 7.55 H ABG pCO2 46 41 ABG pO2 157 H D 78 L D ABG HCO3 34 H 36 H ABG O2 Saturation 100 H 98 ABG Base Excess 9 H 13 H VBG pH 7.56 VBG pCO2 41 VBG pO2 41 VBG Base Excess 13 H 06/29/24 07/01/24 07/02/24 15:15 06:59 05:03 ABG pH 7.39 7.55 H D ABG pCO2 67 H 41 D ABG pO2 80 L 99 ABG HCO3 41 H 36 H ABG O2 Saturation 95 99 H ABG Base Excess 13 H 12 H VBG pH 7.61 VBG pCO2 40 VBG pO2 76 H D VBG Base Excess 18 H 07/04/24 07/05/24 07/06/24 07:54 04:02 04:15 ABG pH 7.50 H 7.49 H 7.49 H ABG pCO2 40 45 45 ABG pO2 70 L D 63 L 108 D ABG HCO3 31 H 34 H 34 H ABG O2 Saturation 96 94 99 H ABG Base Excess 8 H 9 H 9 H VBG pH VBG pCO2 VBG pO2 VBG Base Excess Assessment & Plan Assessment (1) Acute respiratory failure with hypoxia: Status: Acute Assessment and plan: Stable status post tracheostomy Maintaining oxygen saturation (2) Altered mental status: Status: Acute Assessment and plan: Significant improvement noted Continue with the current management waiting for LTAC placement.
[2024-07-14] VITALS (17 sets, daily range): BP systolic 78–104; BP diastolic 42–63; PULSE 52–72; RESP 12–26; TEMP 36.3–36.9; O2SAT 92–100; BMI 14.3
[2024-07-14] MEDS: ceFAZolin/D5W 2 GM IV 2 GM/100 ML BAG IV ×3 (05:13→21:15)
[2024-07-14] MEDS: MIDODRINE 5 MG TABLET 10 MG GT ×3 (05:13→21:15)
[2024-07-14] MEDS: ALBUTEROL RT 2.5 MG/0.5 ML NEBU INH ×3 (06:12→23:01)
--- NOTE | 2024-07-14 08:46 | PC.SS ---
Addendum entered by Jennifer Lara 07/14/24 12:24: SS called Noelle Coughlin from patient's health insurance who states insurance authorization is pending and has been sent to # [id number] and is under review. Addendum entered by Jennifer Lara 07/14/24 09:55: SS called Yolanda from [facility] who explained pt is on blow bi in the day and uses vent at night. Yolanda is aware pt possibly will require an RT rider at d/c. JOHNATHAN will follow up with [facility] Yolanda at ex [phone] to coordinate RT rider. Original Note: JOHNATHAN has sent updated inquiry to [facility] using [employer]. SS has spoke to Weston from [facility] who states he will follow up with insurance authorization.
[2024-07-14] MEDS: NAPH,KPH MBDB 1 PACKET (1.5 GM) PO ×2 (09:01→21:15)
[2024-07-14] MEDS: MULTIVITAMIN 15 ML UDC NG (09:01)
[2024-07-14] MEDS: CALCIUM CARBONATE 600 MG TABLET NG (09:01)
[2024-07-14] MEDS: SERTRALINE HCL 25 MG TABLET 100 MG NG ×2 (09:01→21:14)
[2024-07-14] MEDS: ENOXAPARIN SOD INJ 30 MG/0.3 ML SYRINGE SC (09:01)
[2024-07-14] MEDS: ASPIRIN 81 MG CHEW PO (09:01)
[2024-07-14] MEDS: Ferrous Sulfate 300 MG/5 ML UDC NG (09:01)
[2024-07-14] MEDS: FLUDROCORTISONE ACETATE 0.1 MG TABLET 0.05 MG PO (09:01)
--- NOTE | 2024-07-14 09:01 | ESPR_ITS ---
Documentation for date of: 07/14/24 Subjective Subjective Interval history: 07/14: no acute overnight events. Pt is s/p tracheostomy on blowby in the morning. Pt is tolerating tube feedings well at goal rate of PEG tube feedings of 35ml/h with 50ml of water flushes Q6h. Pts. potassium on todays lab is 3.3, and 80 meq of K is repleated. will repeat renal panel in 2 days and ask lab to use micro tubes to collect blood. Pt is accepted at [facility] and awaiting insurance approval. Medical management remains the same as previously documented. Exam Vital Signs Temp Pulse Resp BP Pulse Ox O2 Del Method O2 Flow Rate 97.6 F 58 L 15 86/42 L 98 Mechanical Ventilation 10 07/14/24 08:00 07/14/24 08:00 07/14/24 08:00 07/14/24 08:00 07/14/24 08:00 07/14/24 08:00 07/14/24 08:00 FiO2 35 07/14/24 08:00 Narrative Exam Gen: Extremely cachectic, makes continuous orofacial movements, non verbal HEENT: Dry mucous membranes. Left eye heavily scarred, right eye glassy. CVS: normal S1 and S2. No M/R/G. Resp: No rhonchi, rales, crackles or wheezing. Abd: soft, non-tender, non-distended, PEG tube no active leaking MSK: No edema. Multiple old scars/wounds on all extremities. Bruising at left/right inguinal folds. Neuro: unable to evaluate, does not seem to track movement Objective Labs 07/11/24 08:40 07/14/24 08:10 ABG Interpretation ABG results: 06/15/24 06/15/24 06/15/24 11:06 14:05 17:00 ABG pH 7.23 L 7.33 L D 7.34 L ABG pCO2 69 H 56 H D 57 H ABG pO2 153 H 67 L D 65 L ABG HCO3 29 H 29 H 30 H ABG O2 Saturation 99 H 92 91 ABG Base Excess 0 3 4 H VBG pH VBG pCO2 VBG pO2 VBG Base Excess 06/16/24 06/17/24 06/18/24 04:04 04:36 04:04 ABG pH 7.35 7.42 7.53 H D ABG pCO2 57 H 54 H 57 H ABG pO2 58 L* 77 L 73 L ABG HCO3 31 H 35 H 47 H ABG O2 Saturation 88 L 96 96 ABG Base Excess 5 H 9 H 22 H VBG pH VBG pCO2 VBG pO2 VBG Base Excess 06/19/24 06/22/24 06/23/24 04:12 17:30 09:55 ABG pH 7.54 H ABG pCO2 50 H ABG pO2 61 L ABG HCO3 42 H ABG O2 Saturation 93 ABG Base Excess 18 H VBG pH 7.46 7.49 VBG pCO2 43 41 VBG pO2 98 H 39 D VBG Base Excess 6 H 7 H 06/25/24 06/26/24 06/27/24 05:04 12:08 04:54 ABG pH 7.47 H 7.48 H ABG pCO2 43 45 ABG pO2 60 L 41 L* ABG HCO3 31 H 34 H ABG O2 Saturation 92 77 L ABG Base Excess 6 H 9 H VBG pH 7.43 VBG pCO2 47 VBG pO2 35 VBG Base Excess 6 H 06/27/24 06/28/24 06/28/24 06:23 04:27 13:19 ABG pH 7.47 H 7.55 H ABG pCO2 46 41 ABG pO2 157 H D 78 L D ABG HCO3 34 H 36 H ABG O2 Saturation 100 H 98 ABG Base Excess 9 H 13 H VBG pH 7.56 VBG pCO2 41 VBG pO2 41 VBG Base Excess 13 H 06/29/24 07/01/24 07/02/24 15:15 06:59 05:03 ABG pH 7.39 7.55 H D ABG pCO2 67 H 41 D ABG pO2 80 L 99 ABG HCO3 41 H 36 H ABG O2 Saturation 95 99 H ABG Base Excess 13 H 12 H VBG pH 7.61 VBG pCO2 40 VBG pO2 76 H D VBG Base Excess 18 H 07/04/24 07/05/24 07/06/24 07:54 04:02 04:15 ABG pH 7.50 H 7.49 H 7.49 H ABG pCO2 40 45 45 ABG pO2 70 L D 63 L 108 D ABG HCO3 31 H 34 H 34 H ABG O2 Saturation 96 94 99 H ABG Base Excess 8 H 9 H 9 H VBG pH VBG pCO2 VBG pO2 VBG Base Excess Quality Measures Quality Measures VTE prophylaxis Assessment & Plan Assessment Current Active Medications: Generic Name Dose Route Start Last Admin Trade Name Freq PRN Reason Stop Dose Admin Acetaminophen 650 mg 06/15/24 13:50 Acetaminophen Supp 650 Mg Supp DE 07/15/24 13:49 Q4HR PRN PAIN SCALE 1-3 (mild Acetaminophen 650 mg 06/19/24 07:27 07/02/24 04:39 Acetaminophen Noreen 325 Mg/10 Ml Udc NG 07/19/24 07:26 650 mg Q4HR PRN Administration Pain Or Fever > 100.4 Protocol Al Hydrox/Mg Hydrox/Simethicone 30 ml 06/15/24 13:50 Mg Hyd/Al Hyd/Franklyn (Maalox Reg) Susp 30 Ml Udc NG 07/15/24 13:49 Q4HR PRN Heartburn or Upset Stomach Albuterol 2.5 mg 07/04/24 15:00 07/14/24 06:12 Albuterol Rt 2.5 Mg/0.5 Ml Nebu INH 08/03/24 14:59 2.5 mg Q8HRRT LIZ Administration Aspirin 81 mg 06/23/24 09:00 07/13/24 08:31 Aspirin 81 Mg Chew PO 07/23/24 08:59 81 mg QDAY LIZ Administration Atorvastatin Calcium 40 mg 06/21/24 21:00 07/13/24 21:18 Atorvastatin Calcium 20 Mg Tablet PO 07/21/24 20:59 40 mg HS LIZ Administration Calcium Carbonate 600 mg 06/23/24 09:00 07/13/24 08:31 Calcium Carbonate 600 Mg Tablet NG 07/23/24 08:59 600 mg QDAY LIZ Administration Dextrose 25 ml 06/24/24 13:46 Dextrose 50%-Water Inj 50 Ml Syringe IV 07/24/24 13:45 Q15MIN PRN BG 50-70 responsive npo pt Dextrose 50 ml 06/24/24 13:46 07/04/24 05:17 Dextrose 50%-Water Inj 50 Ml Syringe IV 07/24/24 13:45 50 ml Q15MIN PRN Administration BG <50 OR BG <70 & pt unresponsive Enoxaparin Sodium 30 mg 07/05/24 10:00 07/13/24 08:30 Enoxaparin Sod Inj 30 Mg/0.3 Ml Syringe SC 07/19/24 09:59 30 mg QDAY LIZ Administration Ferrous Sulfate 300 mg 06/25/24 09:00 07/13/24 08:31 Ferrous Sulfate 300 Mg/5 Ml Udc NG 07/25/24 08:59 300 mg QDAY LIZ Administration Fludrocortisone Acetate 0.05 mg 07/08/24 09:00 07/12/24 09:37 Fludrocortisone Acetate 0.1 Mg Tablet PO 08/07/24 08:59 0.05 mg Q48H LIZ Administration Glucagon 1 mg 06/24/24 13:46 Glucagon Inj 1 Mg Vial IM Q15MIN PRN BG <70, and no IV access Cefazolin Sodium 2 gm in 100 mls @ 100 mls/hr 07/09/24 14:00 07/14/24 05:13 Ancef 2gm Ivpb IV 07/16/24 13:59 100 mls/hr Q8HR LIZ Administration Insulin Human Lispro 0 unit 06/24/24 18:00 07/14/24 05:14 Insulin Lispro (Admelog) 1 Unit/0.01 Ml Unit SC 07/24/24 17:59 Not Given Q6HR LIZ Protocol Magnesium Hydroxide 30 ml 06/15/24 13:50 Milk Of Magnesia Susp 30 Ml Udc NG 07/15/24 13:49 QDAY PRN CONSTIPATION Midodrine 10 mg 07/12/24 14:00 07/14/24 05:13 Midodrine 5 Mg Tablet GT 08/11/24 13:59 10 mg TID LIZ Administration Multivitamins/Minerals 15 ml 06/19/24 15:15 07/13/24 08:31 Multivitamin 15 Ml Udc NG 07/19/24 15:14 15 ml QDAY LIZ Administration Pantoprazole Sodium 40 mg 06/16/24 09:00 07/13/24 08:31 Pantoprazole Inj 40 Mg Vial IVP 07/16/24 08:59 40 mg QDAY LIZ Administration Pharmacy Consult 1 each 06/15/24 18:27 Pharmacy To Consult Pneumovacc XX 07/15/24 18:26 PRN PRN CONSULT Potassium Phos/Sodium Phos 1 packet 06/28/24 11:00 07/13/24 21:18 Naph,Kp Mbdb 1 Packet (1.5 Gm) PO 07/28/24 10:59 1 packet BID LIZ Administration Sertraline HCl 100 mg 06/23/24 15:30 07/13/24 08:31 Sertraline Hcl 25 Mg Tablet NG 07/23/24 15:29 100 mg QDAY LIZ Administration Simethicone 40 mg 07/02/24 09:30 07/13/24 21:18 Simethicone 40 Mg/0.6 Ml Oral Syringe GT 08/01/24 09:29 40 mg BID LIZ Administration Sodium Chloride 3 ml 07/04/24 10:05 07/13/24 22:48 Sodium Chloride Rt Noreen 0.9% 3 Ml Nebu INH 08/03/24 10:04 3 ml PRN PRN Administration SOLN Plan 54 Y/O F with PMHx significant for Downs Syndrome, Schizophrenia,blindness, IBS, presents with chief complaint of AMS, initally admitted to ICU for septic shock requiring pressors and acute hypoxic respiratory failure requiring intubation, pt is downgraded to telemetry to resume care until LTACH placement. #AHRF 2/2 #Aspiration Pneumonia #MSSA pneumonia - resolved #MSSA bacteremia #s/p tracheostomy Patient has history of Down syndrome, risk for aspiration pneumonia. Bacterial and viral pneumonia both possible. Influenza panel negative. MRSA screen negative. Sedated and mechanically ventilated Extubated on 06/24/24, but reintubated on 06/25 Patient extubated for second time, still severely hypoxic, requiring high flow nasal cannula. Patient desatted despite several hours of manual bagging, required reintubation. Unable to successfully extubate. Underwent tracheostomy on 07/03/24 for long- term mechanical ventilation. On 10L oxygen blow by. Sputum culture positive for MSSA pneumonia on 06/25 Plan: -continue renaly dosed cefazolin 2 g BID daily -nocturnal ventilation set to previous settings PS mode: PS 5.0, PEEP 8.0, FiO2 50 -During day time, tracheostomy blow-by as tolerated #Hypotension- resolved Patient was treated for septic shock with vasopressors. MAP improved but patient's BP remains low. MAP is above 50. Continue BP support with midodrine. -continue midodrine 10 mg TID -MAP goal > 50 #Severe protein malnutrition #s/p PEG tube placement Patient BMI 14.9. Patient unable to provide history, per caregiver patient has good oral intake most times, has been malnourished for years due to chronic diarrhea, has not had significant weight loss recently. Patient has very little muscle mass, temporal wasting, sunken eyes. GI was consulted and patient underwent PEG tube placement on 07/03. Dietary team was consulted and patient to be started on Vital 1.2 at 10 mL/h. Advance 10 mL every 8 hours to goal rate of 35 mL/h. Plan: -tube feeding goal 35 ml/h with 50ml water flushed Q6h -renal panel every other day -monitoring/repleting of potassium, phosphorous, magnesium #Hx IBS Patient history of IBS. Patient had diarrhea for 3 days prior to admission, not unusual for patient. Per caregiver, patient also experiences diarrhea after any food intake. Possible underlying malabsorption (celiac vs pancreatic insufficiency vs lactose deficiency) -Monitor bowel movements -stool osmolarity test pending -Treat metabolic abnormalities as needed #Adrenal insufficiency Suspect due to chronic malnutrition. Patient arrived with hypotension, hypernatremia. Patient has been hypokalemic despite repletion and bradycardic. Clinical improvement with hydrocortisone followed by worsening when dosage reduced. Patient continues to present with hypokalemia even with yesterday's dose reduction. Continue to wean from 0.1 mg to 0.05 mg daily. Plan: -Decrease fludrocortisone from 0.1 mg to 0.05 mg daily on 07/05 -Received first 0.05mg fludrocortisone dose on 07/06 - fludrocoristone to 0.05mg every day -monitor sodium and potassium #Acute encephalopathy-resolved Multifactorial: hypoxia, S/p shock, electrolytes imbalance Low density areas in both basal ganglia seen on head CT -Neurologist Dr. Jaeger was consulted. -EEG completed-interpreted as abnormal with diffuse slowing suggestive of a diffuse encephalopathy of hypoxic origin per neurology. #Hx Schizophrenia #Hx Depression -Held patient's home medication risperidone 4mg BID, Ziprasidone 60mg BID, and zolpidem 10mg PO HS. -continue with Sertraline 100mg daily #Hyperglycemia-resolved Patient had mild hyperglycemia that was uptrending. No history of diabetes. Likely due to steroid treatment. -Started on SSI lispro q6h -Monitor daily glucose checks #Macrocytic anemia Patient hemoglobin 9.2, MCV 114. No previous labs to compare to. No obvious signs of acute bleeding. On 06/23: Hb 6.9, transfused 1 unit PRBC Folate and B12 not depleted. -Monitor and replete for hgb < 7.0 -Patient received 1 unit PRBC (07/07) Health maintenance: Diet: Vital tube feeds at 35 ml/hr with 50ml of water flushes Q6h DVT prophylaxis: Lovenox 30 daily G.I prophylaxis: Pantoprazole Code: Full code Diso: Tele for LTACH placement hold Assessment and plan discussed with my senior resident Dr. Ogden & attending physician Dr. Jane Tran ([id number])- Internal medicine resident Attending Provider Attestation/Addendum I reviewed labs, imaging, EKG, home medications and prior available records. Face to face evaluation was performed by me. I have personally examined the patient and discussed assessment and plan with the IM team. I reviewed the resident note and agree with the plan with exceptions as below. Acute hypoxic respiratory failure Aspiration pneumonia Shock, possibly septic S/p tracheostomy Status post PEG tube placement Malnutrition, CVA, BMI less than 15 MSSA bacteremia Down syndrome Acute hypotension Possible cortisol deficiency Added midodrine to fludrocortisone due to hypotension. Discussed with Dr. Roe: Declined to accept the patient back to SNF given her hypotension. Discussed with social service liaison: Will plan for LTAC Continue PEG tube feeds and oxygen via trach/T-piece Cefazolin till 07/15 Repleted magnesium and potassium. Follow-up levels Discussed with social service liaison: Found an LTAC however pending authorization
[2024-07-14] MEDS: SIMETHICONE 40 MG/0.6 ML ORAL SYRINGE GT ×2 (09:02→21:38)
[2024-07-14] MEDS: PANTOPRAZOLE INJ 40 MG VIAL IVP (09:02)
[2024-07-14 09:10] LABS: Alanine Aminotransferase < 7 U/L (10-49); Albumin/Globulin Ratio 1.1 (1.2-2.2); Alkaline Phosphatase 93 U/L (46-116); Anion Gap 7 (7-16); Aspartate Amino Transferase 33 U/L (0-34); BUN/Creatinine Ratio 40 Ratio (12-20); Bilirubin,Total 0.2 mg/dL (0.3-1.2); Blood Urea Nitrogen 20 mg/dL (9-23); Calcium (Corrected) 8.8 mg/dL (8.5-10.1); Carbon Dioxide 34.6 mMol/L (20.0-31.0); Chloride 94 mMol/L (98-107); Creatinine (Component) 0.5 mg/dL (0.6-1.3); Estimated Creatinine Clearance 44.3 mL/min (>60); Globulin 2.8 gm/dL (2.3-3.5); Glucose 121 mg/dL (74-106); Magnesium 1.6 mg/dL (1.6-2.6); Osmolality,Calculated 275 (275-295); Potassium 3.3 mMol/L (3.4-5.1); Sodium 136 mMol/L (136-145); Total Protein 5.8 gm/dL (5.7-8.2); eGFR > 60 See Note
[2024-07-14] MEDS: POTASSIUM CHLORIDE 10% 20 MEQ/15 ML UDC 40 MEQ GT ×2 (09:42→11:51)
[2024-07-14] MEDS: Magnesium Sulfate 2 GM Ivpb 2 GM/50 ML BAG IV (11:25)
[2024-07-14] MEDS: INSULIN LISPRO (AdmeLOG) 1 UNIT/0.01 ML UNIT SC (11:59)
--- NOTE | 2024-07-14 14:33 | PC.SS ---
SS received call from Krystyna Dumont with [facility] who states they are reconnecting pt with services. Pt was dropped from [facility] in the past due to [place] of state. Pt is being reactivated with [facility] as a client. Per rKystyna from [facility], at this time pt is not conserved. The assigned adult protective caseworker is Atif Ohara, programming equipment operator of in take at [facility]. If unable to contact Atif Ohara then contact the Officer Of The Day at [facility]. [facility]'s goal is to partner in making patient's medical decisions. Krystyna is aware [facility]. will update [facility] with patient's d/c plan.
--- NOTE | 2024-07-14 15:03 | PD.IMPROG ---
Documentation for date of: 07/14/24 Subjective Subjective Interval history: Patient examined PEG site looks good Exam Vital Signs Temp Pulse Resp BP Pulse Ox O2 Del Method O2 Flow Rate 97.6 F 59 L 12 82/55 L 100 Mechanical Ventilation 10 07/14/24 12:00 07/14/24 14:02 07/14/24 14:02 07/14/24 13:34 07/14/24 14:02 07/14/24 12:00 07/14/24 12:00 FiO2 30 07/14/24 14:02 Objective Labs 07/11/24 08:40 07/14/24 08:10 Labs: Laboratory Results - last 24 hr 07/14/24 08:10 Sodium 136 Potassium 3.3 L D Chloride 94 L Carbon Dioxide 34.6 H Anion Gap 7 BUN 20 Creatinine 0.5 L Estim Creat Clear Calc 44.3 L eGFR > 60 BUN/Creatinine Ratio 40 H Glucose 121 H Calculated Osmolality 275 Calcium 8.0 L Corrected Calcium 8.8 Magnesium 1.6 Total Bilirubin 0.2 L AST 33 ALT < 7 L Alkaline Phosphatase 93 Total Protein 5.8 Albumin 3.0 L Globulin 2.8 Albumin/Globulin Ratio 1.1 L Impressions Impression: # Failure to thrive Tolerating vital at 35 cc an hour via the PEG tube ABG Interpretation ABG results: 06/15/24 06/15/24 06/15/24 11:06 14:05 17:00 ABG pH 7.23 L 7.33 L D 7.34 L ABG pCO2 69 H 56 H D 57 H ABG pO2 153 H 67 L D 65 L ABG HCO3 29 H 29 H 30 H ABG O2 Saturation 99 H 92 91 ABG Base Excess 0 3 4 H VBG pH VBG pCO2 VBG pO2 VBG Base Excess 06/16/24 06/17/24 06/18/24 04:04 04:36 04:04 ABG pH 7.35 7.42 7.53 H D ABG pCO2 57 H 54 H 57 H ABG pO2 58 L* 77 L 73 L ABG HCO3 31 H 35 H 47 H ABG O2 Saturation 88 L 96 96 ABG Base Excess 5 H 9 H 22 H VBG pH VBG pCO2 VBG pO2 VBG Base Excess 06/19/24 06/22/24 06/23/24 04:12 17:30 09:55 ABG pH 7.54 H ABG pCO2 50 H ABG pO2 61 L ABG HCO3 42 H ABG O2 Saturation 93 ABG Base Excess 18 H VBG pH 7.46 7.49 VBG pCO2 43 41 VBG pO2 98 H 39 D VBG Base Excess 6 H 7 H 06/25/24 06/26/24 06/27/24 05:04 12:08 04:54 ABG pH 7.47 H 7.48 H ABG pCO2 43 45 ABG pO2 60 L 41 L* ABG HCO3 31 H 34 H ABG O2 Saturation 92 77 L ABG Base Excess 6 H 9 H VBG pH 7.43 VBG pCO2 47 VBG pO2 35 VBG Base Excess 6 H 06/27/24 06/28/24 06/28/24 06:23 04:27 13:19 ABG pH 7.47 H 7.55 H ABG pCO2 46 41 ABG pO2 157 H D 78 L D ABG HCO3 34 H 36 H ABG O2 Saturation 100 H 98 ABG Base Excess 9 H 13 H VBG pH 7.56 VBG pCO2 41 VBG pO2 41 VBG Base Excess 13 H 06/29/24 07/01/24 07/02/24 15:15 06:59 05:03 ABG pH 7.39 7.55 H D ABG pCO2 67 H 41 D ABG pO2 80 L 99 ABG HCO3 41 H 36 H ABG O2 Saturation 95 99 H ABG Base Excess 13 H 12 H VBG pH 7.61 VBG pCO2 40 VBG pO2 76 H D VBG Base Excess 18 H 07/04/24 07/05/24 07/06/24 07:54 04:02 04:15 ABG pH 7.50 H 7.49 H 7.49 H ABG pCO2 40 45 45 ABG pO2 70 L D 63 L 108 D ABG HCO3 31 H 34 H 34 H ABG O2 Saturation 96 94 99 H ABG Base Excess 8 H 9 H 9 H VBG pH VBG pCO2 VBG pO2 VBG Base Excess Assessment & Plan A&P Narrative # Failure to thrive Plan Consent will be obtained from the appropriate authorities for placement of a PEG tube insertion under intravenous moderate sedation via fiberoptic esophageal gastroduodenoscopy Will follow the patient Other medical problems include # Acute hypoxic respiratory failure requiring endotracheal intubation and mechanical ventilation # Altered mental status # Schizophrenia # Clinically blind Thank you very much for the opportunity to participate in the care of this patient Time Spent With Patient Time: Total time spent is greater than 50% in coordination of care (as documented) at patient's floor/unit and/or counseling patient: Procedures Arterial Line Size (Gauge): 20
[2024-07-14] MEDS: ATORVASTATIN CALCIUM 20 MG TABLET 40 MG PO (21:15)
[2024-07-14] MEDS: SODIUM CHLORIDE RT SOL 0.9% 3 ML NEBU INH (23:02)
--- NOTE | 2024-07-14 23:16 | PD.NEUROPROG ---
Documentation for date of: 07/14/24 Subjective Subjective Interval history: Patient was seen in telemetry today with her sister at the bedside. She had significant improvement in mental status and overall condition to the point of able to communicate despite the hearing loss. Exam - Neurology Vital Signs Temp Pulse Resp BP Pulse Ox O2 Del Method O2 Flow Rate 98.3 F 58 L 18 87/59 L 97 Mechanical Ventilation 10 07/14/24 20:00 07/14/24 23:01 07/14/24 20:00 07/14/24 21:15 07/14/24 20:00 07/14/24 20:00 07/14/24 20:00 FiO2 30 07/14/24 20:00 Narrative Exam GENERAL APPEARANCE: Thin built, emaciated with features of Down syndrome, trached. HEENT: Normocephalic, atraumatic, extraocular movements intact. Pupils: Equal reacting to light NECK: Supple, no JVD or bruits. CARDIOVASULAR: Heart: S1, S2 heard, regular without S3-S4 or murmur no rubs or gallops. LUNGS/CHEST: Clear to auscultation bilaterally. No rails, rhonchi, or wheezing. Normal inspection. ABDOMEN: Soft, nontender, with normal bowel sounds. No pulsatile masses. No rebound, rigidity, or guarding. Normal inspection and palpation. EXTREMITIES: Normal inspection and palpation. No edema, clubbing or cyanosis. SKIN: Warm and dry without rashes. Normal inspection. MUSCULOSKELETAL: No cervical, thoracic, lumbar or midline bony tenderness. Normal inspection. NEURO: Alert, awake and oriented x1. Cranial nerves: II through XII grossly intact. Able to verbalize when her sister talk to her louder in her left ear. motor system: Tone and bulk: Normal: Strength: Moves all 4 extremities purposefully; No pronator drift noted. Rest of exam: Limited. no signs of meningeal irritation noted. PSYCHIATRIC: Limited Objective Labs 07/11/24 08:40 07/14/24 08:10 Labs: Laboratory Results - last 24 hr 07/14/24 08:10 Sodium 136 Potassium 3.3 L D Chloride 94 L Carbon Dioxide 34.6 H Anion Gap 7 BUN 20 Creatinine 0.5 L Estim Creat Clear Calc 44.3 L eGFR > 60 BUN/Creatinine Ratio 40 H Glucose 121 H Calculated Osmolality 275 Calcium 8.0 L Corrected Calcium 8.8 Magnesium 1.6 Total Bilirubin 0.2 L AST 33 ALT < 7 L Alkaline Phosphatase 93 Total Protein 5.8 Albumin 3.0 L Globulin 2.8 Albumin/Globulin Ratio 1.1 L ABG Interpretation ABG results: 06/15/24 06/15/24 06/15/24 11:06 14:05 17:00 ABG pH 7.23 L 7.33 L D 7.34 L ABG pCO2 69 H 56 H D 57 H ABG pO2 153 H 67 L D 65 L ABG HCO3 29 H 29 H 30 H ABG O2 Saturation 99 H 92 91 ABG Base Excess 0 3 4 H VBG pH VBG pCO2 VBG pO2 VBG Base Excess 06/16/24 06/17/24 06/18/24 04:04 04:36 04:04 ABG pH 7.35 7.42 7.53 H D ABG pCO2 57 H 54 H 57 H ABG pO2 58 L* 77 L 73 L ABG HCO3 31 H 35 H 47 H ABG O2 Saturation 88 L 96 96 ABG Base Excess 5 H 9 H 22 H VBG pH VBG pCO2 VBG pO2 VBG Base Excess 06/19/24 06/22/24 06/23/24 04:12 17:30 09:55 ABG pH 7.54 H ABG pCO2 50 H ABG pO2 61 L ABG HCO3 42 H ABG O2 Saturation 93 ABG Base Excess 18 H VBG pH 7.46 7.49 VBG pCO2 43 41 VBG pO2 98 H 39 D VBG Base Excess 6 H 7 H 06/25/24 06/26/24 06/27/24 05:04 12:08 04:54 ABG pH 7.47 H 7.48 H ABG pCO2 43 45 ABG pO2 60 L 41 L* ABG HCO3 31 H 34 H ABG O2 Saturation 92 77 L ABG Base Excess 6 H 9 H VBG pH 7.43 VBG pCO2 47 VBG pO2 35 VBG Base Excess 6 H 06/27/24 06/28/24 06/28/24 06:23 04:27 13:19 ABG pH 7.47 H 7.55 H ABG pCO2 46 41 ABG pO2 157 H D 78 L D ABG HCO3 34 H 36 H ABG O2 Saturation 100 H 98 ABG Base Excess 9 H 13 H VBG pH 7.56 VBG pCO2 41 VBG pO2 41 VBG Base Excess 13 H 06/29/24 07/01/24 07/02/24 15:15 06:59 05:03 ABG pH 7.39 7.55 H D ABG pCO2 67 H 41 D ABG pO2 80 L 99 ABG HCO3 41 H 36 H ABG O2 Saturation 95 99 H ABG Base Excess 13 H 12 H VBG pH 7.61 VBG pCO2 40 VBG pO2 76 H D VBG Base Excess 18 H 07/04/24 07/05/24 07/06/24 07:54 04:02 04:15 ABG pH 7.50 H 7.49 H 7.49 H ABG pCO2 40 45 45 ABG pO2 70 L D 63 L 108 D ABG HCO3 31 H 34 H 34 H ABG O2 Saturation 96 94 99 H ABG Base Excess 8 H 9 H 9 H VBG pH VBG pCO2 VBG pO2 VBG Base Excess Assessment & Plan Assessment and plan (1) Acute respiratory failure with hypoxia: Status: Acute Assessment and plan: Stable status post tracheostomy Maintaining oxygen saturation (2) Altered mental status: Status: Acute Assessment and plan: Significant improvement noted Continue with the current management Procedures Arterial Line Size (Gauge): 20
[2024-07-15] VITALS (10 sets, daily range): BP systolic 79–101; BP diastolic 45–59; PULSE 60–74; RESP 12–19; TEMP 36.1–36.4; O2SAT 91–100; BMI 14.3
[2024-07-15] MEDS: ceFAZolin/D5W 2 GM IV 2 GM/100 ML BAG IV ×2 (05:42→14:41)
[2024-07-15] MEDS: MIDODRINE 5 MG TABLET 10 MG GT ×2 (05:42→14:41)
[2024-07-15] MEDS: ALBUTEROL RT 2.5 MG/0.5 ML NEBU INH ×2 (06:12→15:24)
[2024-07-15] MEDS: SODIUM CHLORIDE RT SOL 0.9% 3 ML NEBU INH ×2 (06:12→15:24)
--- NOTE | 2024-07-15 09:02 | PC.SS ---
Addendum entered by Jennifer Lara 07/15/24 15:24: SS spoke to Chelsea from dispatch to inform her RT explained pt has not been on vent since yesterday am. Chelsea from dispatch spoke to her tracer bullet section supervisor and RT rider is not required. Weston from [facility] is working on locating a bed for today. Original Note: Follow up note: SS spoke to Weston from [facility] who explained they have received insurance authorization and are now waiting for bed to be available. SS has contacted Aspen from RT who explained pt has not been on vent over night since yesterday and is requesting SS speak with dispatch about transporting pt on blow by without RT rider. Aspen is aware pt will possibly require RT rider for transportation. Weston from [facility] is aware pt is being reconnected with [facility] services as of yesterday (07-14-23). Per Weston, they do not require a PASRR.
[2024-07-15] MEDS: CALCIUM CARBONATE 600 MG TABLET NG (09:58)
[2024-07-15] MEDS: ENOXAPARIN SOD INJ 30 MG/0.3 ML SYRINGE SC (09:58)
[2024-07-15] MEDS: Ferrous Sulfate 300 MG/5 ML UDC NG (09:59)
[2024-07-15] MEDS: PANTOPRAZOLE INJ 40 MG VIAL IVP (09:59)
[2024-07-15] MEDS: ASPIRIN 81 MG CHEW PO (09:59)
[2024-07-15] MEDS: NAPH,KPH MBDB 1 PACKET (1.5 GM) PO (09:59)
[2024-07-15] MEDS: MULTIVITAMIN 15 ML UDC NG (09:59)
[2024-07-15] MEDS: SIMETHICONE 40 MG/0.6 ML ORAL SYRINGE GT (10:21)
--- NOTE | 2024-07-15 11:58 | ESPR_ITS ---
Addendum Progress Note Addendum Date of report being addended: 07/15/24 Narrative: I reviewed labs, imaging, EKG, home medications and prior available records. Face to face evaluation was performed by me. I have personally examined the patient and discussed assessment and plan with the IM team. I reviewed the resident note and agree with the plan with exceptions as below. Acute hypoxic respiratory failure Aspiration pneumonia Shock, possibly septic S/p tracheostomy Status post PEG tube placement Malnutrition, CVA, BMI less than 15 MSSA bacteremia Down syndrome Acute hypotension Possible cortisol deficiency Added midodrine to fludrocortisone due to hypotension. Monitor BP. Discussed with Dr. Roe: Declined to accept the patient back to SNF given her hypotension, however may accept if she is DNR. Discussed with social science research assistant: She got LTAC authorization but bed is pending. Continue PEG tube feeds and oxygen via trach Cefazolin till 07/15 Repleted magnesium and potassium. Follow-up levels
--- NOTE | 2024-07-15 14:43 | PD.RESPRO ---
Documentation for date of: 07/15/24 Subjective Subjective Interval history: 07/15: no acute overnight events. Pt is s/p tracheostomy on blowby in the morning. Pt is tolerating tube feedings well at goal rate of PEG tube feedings of 35ml/h with 50ml of water flushes will be changed to Q4h. Pt is accepted at [facility] and awaiting insurance approval. Patient is under medical management with Dr. Contreras who will now be making medical decisions on behalf of the patient. medical management remains the same as previously documented. Exam Vital Signs Temp Pulse Resp BP Pulse Ox O2 Del Method O2 Flow Rate 97.0 F 64 19 94/59 L 96 Mechanical Ventilation 8 07/15/24 12:00 07/15/24 14:41 07/15/24 12:00 07/15/24 14:41 07/15/24 12:00 07/15/24 04:00 07/15/24 06:38 FiO2 30 07/15/24 12:00 Narrative Exam Gen: Extremely cachectic, makes continuous orofacial movements, non verbal HEENT: Dry mucous membranes. Left eye heavily scarred, right eye glassy. CVS: normal S1 and S2. No M/R/G. Resp: No rhonchi, rales, crackles or wheezing. Abd: soft, non-tender, non-distended, PEG tube no active leaking MSK: No edema. Multiple old scars/wounds on all extremities. Bruising at left/right inguinal folds. Neuro: unable to evaluate, does not seem to track movement Objective Labs 07/11/24 08:40 07/14/24 08:10 ABG Interpretation ABG results: 06/15/24 06/15/24 06/15/24 11:06 14:05 17:00 ABG pH 7.23 L 7.33 L D 7.34 L ABG pCO2 69 H 56 H D 57 H ABG pO2 153 H 67 L D 65 L ABG HCO3 29 H 29 H 30 H ABG O2 Saturation 99 H 92 91 ABG Base Excess 0 3 4 H VBG pH VBG pCO2 VBG pO2 VBG Base Excess 06/16/24 06/17/24 06/18/24 04:04 04:36 04:04 ABG pH 7.35 7.42 7.53 H D ABG pCO2 57 H 54 H 57 H ABG pO2 58 L* 77 L 73 L ABG HCO3 31 H 35 H 47 H ABG O2 Saturation 88 L 96 96 ABG Base Excess 5 H 9 H 22 H VBG pH VBG pCO2 VBG pO2 VBG Base Excess 06/19/24 06/22/24 06/23/24 04:12 17:30 09:55 ABG pH 7.54 H ABG pCO2 50 H ABG pO2 61 L ABG HCO3 42 H ABG O2 Saturation 93 ABG Base Excess 18 H VBG pH 7.46 7.49 VBG pCO2 43 41 VBG pO2 98 H 39 D VBG Base Excess 6 H 7 H 06/25/24 06/26/24 06/27/24 05:04 12:08 04:54 ABG pH 7.47 H 7.48 H ABG pCO2 43 45 ABG pO2 60 L 41 L* ABG HCO3 31 H 34 H ABG O2 Saturation 92 77 L ABG Base Excess 6 H 9 H VBG pH 7.43 VBG pCO2 47 VBG pO2 35 VBG Base Excess 6 H 06/27/24 06/28/24 06/28/24 06:23 04:27 13:19 ABG pH 7.47 H 7.55 H ABG pCO2 46 41 ABG pO2 157 H D 78 L D ABG HCO3 34 H 36 H ABG O2 Saturation 100 H 98 ABG Base Excess 9 H 13 H VBG pH 7.56 VBG pCO2 41 VBG pO2 41 VBG Base Excess 13 H 06/29/24 07/01/24 07/02/24 15:15 06:59 05:03 ABG pH 7.39 7.55 H D ABG pCO2 67 H 41 D ABG pO2 80 L 99 ABG HCO3 41 H 36 H ABG O2 Saturation 95 99 H ABG Base Excess 13 H 12 H VBG pH 7.61 VBG pCO2 40 VBG pO2 76 H D VBG Base Excess 18 H 07/04/24 07/05/24 07/06/24 07:54 04:02 04:15 ABG pH 7.50 H 7.49 H 7.49 H ABG pCO2 40 45 45 ABG pO2 70 L D 63 L 108 D ABG HCO3 31 H 34 H 34 H ABG O2 Saturation 96 94 99 H ABG Base Excess 8 H 9 H 9 H VBG pH VBG pCO2 VBG pO2 VBG Base Excess Quality Measures Quality Measures VTE prophylaxis Assessment & Plan Assessment Current Active Medications: Generic Name Dose Route Start Last Admin Trade Name Freq PRN Reason Stop Dose Admin Acetaminophen 650 mg 06/19/24 07:27 07/02/24 04:39 Acetaminophen Noreen 325 Mg/10 Ml Udc NG 07/19/24 07:26 650 mg Q4HR PRN Administration Pain Or Fever > 100.4 Protocol Albuterol 2.5 mg 07/04/24 15:00 07/15/24 06:12 Albuterol Rt 2.5 Mg/0.5 Ml Nebu INH 08/03/24 14:59 2.5 mg Q8HRRT LIZ Administration Aspirin 81 mg 06/23/24 09:00 07/15/24 09:59 Aspirin 81 Mg Chew PO 07/23/24 08:59 81 mg QDAY LIZ Administration Atorvastatin Calcium 40 mg 06/21/24 21:00 07/14/24 21:15 Atorvastatin Calcium 20 Mg Tablet PO 07/21/24 20:59 40 mg HS LIZ Administration Calcium Carbonate 600 mg 06/23/24 09:00 07/15/24 09:58 Calcium Carbonate 600 Mg Tablet NG 07/23/24 08:59 600 mg QDAY LIZ Administration Dextrose 25 ml 06/24/24 13:46 Dextrose 50%-Water Inj 50 Ml Syringe IV 07/24/24 13:45 Q15MIN PRN BG 50-70 responsive npo pt Dextrose 50 ml 06/24/24 13:46 07/04/24 05:17 Dextrose 50%-Water Inj 50 Ml Syringe IV 07/24/24 13:45 50 ml Q15MIN PRN Administration BG <50 OR BG <70 & pt unresponsive Enoxaparin Sodium 30 mg 07/05/24 10:00 07/15/24 09:58 Enoxaparin Sod Inj 30 Mg/0.3 Ml Syringe SC 07/19/24 09:59 30 mg QDAY LIZ Administration Ferrous Sulfate 300 mg 06/25/24 09:00 07/15/24 09:59 Ferrous Sulfate 300 Mg/5 Ml Udc NG 07/25/24 08:59 300 mg QDAY LIZ Administration Fludrocortisone Acetate 0.05 mg 07/08/24 09:00 07/14/24 09:01 Fludrocortisone Acetate 0.1 Mg Tablet PO 08/07/24 08:59 0.05 mg Q48H LIZ Administration Glucagon 1 mg 06/24/24 13:46 Glucagon Inj 1 Mg Vial IM Q15MIN PRN BG <70, and no IV access Cefazolin Sodium 2 gm in 100 mls @ 100 mls/hr 07/09/24 14:00 07/15/24 14:41 Ancef 2gm Ivpb IV 07/16/24 13:59 100 mls/hr Q8HR LIZ Administration Insulin Human Lispro 0 unit 06/24/24 18:00 07/15/24 11:51 Insulin Lispro (Admelog) 1 Unit/0.01 Ml Unit SC 07/24/24 17:59 Not Given Q6HR LIZ Protocol Midodrine 10 mg 07/12/24 14:00 07/15/24 14:41 Midodrine 5 Mg Tablet GT 08/11/24 13:59 10 mg TID LIZ Administration Multivitamins/Minerals 15 ml 06/19/24 15:15 07/15/24 09:59 Multivitamin 15 Ml Udc NG 07/19/24 15:14 15 ml QDAY LIZ Administration Pantoprazole Sodium 40 mg 06/16/24 09:00 07/15/24 09:59 Pantoprazole Inj 40 Mg Vial IVP 07/16/24 08:59 40 mg QDAY LIZ Administration Pharmacy Consult 1 each 06/15/24 18:27 Pharmacy To Consult Pneumovacc XX 07/15/24 18:26 PRN PRN CONSULT Potassium Phos/Sodium Phos 1 packet 06/28/24 11:00 07/15/24 09:59 [facility] 1 Packet (1.5 Gm) PO 07/28/24 10:59 1 packet BID LIZ Administration Sertraline HCl 100 mg 06/23/24 15:30 07/14/24 21:14 Sertraline Hcl 25 Mg Tablet NG 07/23/24 15:29 100 mg QDAY LIZ Administration Simethicone 40 mg 07/02/24 09:30 07/15/24 10:21 Simethicone 40 Mg/0.6 Ml Oral Syringe GT 08/01/24 09:29 40 mg BID LIZ Administration Sodium Chloride 3 ml 07/04/24 10:05 07/15/24 06:12 Sodium Chloride Rt Noreen 0.9% 3 Ml Nebu INH 08/03/24 10:04 3 ml PRN PRN Administration SOLN Plan 54 Y/O F with PMHx significant for Downs Syndrome, Schizophrenia,blindness, IBS, presents with chief complaint of AMS, initally admitted to ICU for septic shock requiring pressors and acute hypoxic respiratory failure requiring intubation, pt is downgraded to telemetry to resume care until LTACH placement. #AHRF 2/2 #Aspiration Pneumonia #MSSA pneumonia - resolved #MSSA bacteremia #s/p tracheostomy Patient has history of Down syndrome, risk for aspiration pneumonia. Bacterial and viral pneumonia both possible. Influenza panel negative. MRSA screen negative. Sedated and mechanically ventilated Extubated on 06/24/24, but reintubated on 06/25 Patient extubated for second time, still severely hypoxic, requiring high flow nasal cannula. Patient desatted despite several hours of manual bagging, required reintubation. Unable to successfully extubate. Underwent tracheostomy on 07/03/24 for long-term mechanical ventilation. On 10L oxygen blow by. Sputum culture positive for MSSA pneumonia on 06/25 Plan: -continue renaly dosed cefazolin 2 g BID daily -nocturnal ventilation set to previous settings PS mode: PS 5.0, PEEP 8.0, FiO2 50 -During day time, tracheostomy blow-by as tolerated #Hypotension- resolved Patient was treated for septic shock with vasopressors. MAP improved but patient's BP remains low. MAP is above 50. Continue BP support with midodrine. -continue midodrine 10 mg TID -MAP goal > 50 #Severe protein malnutrition #s/p PEG tube placement Patient BMI 14.9. Patient unable to provide history, per caregiver patient has good oral intake most times, has been malnourished for years due to chronic diarrhea, has not had significant weight loss recently. Patient has very little muscle mass, temporal wasting, sunken eyes. GI was consulted and patient underwent PEG tube placement on 07/03. Dietary team was consulted and patient to be started on Vital 1.2 at 10 mL/h. Advance 10 mL every 8 hours to goal rate of 35 mL/h. Plan: -tube feeding goal 35 ml/h with 50ml water flushed Q4h -renal panel every other day -monitoring/repleting of potassium, phosphorous, magnesium #Hx IBS Patient history of IBS. Patient had diarrhea for 3 days prior to admission, not unusual for patient. Per caregiver, patient also experiences diarrhea after any food intake. Possible underlying malabsorption (celiac vs pancreatic insufficiency vs lactose deficiency) -Monitor bowel movements -stool osmolarity test pending -Treat metabolic abnormalities as needed #Adrenal insufficiency Suspect due to chronic malnutrition. Patient arrived with hypotension, hypernatremia. Patient has been hypokalemic despite repletion and bradycardic. Clinical improvement with hydrocortisone followed by worsening when dosage reduced. Patient continues to present with hypokalemia even with yesterday's dose reduction. Continue to wean from 0.1 mg to 0.05 mg daily. Plan: -Decrease fludrocortisone from 0.1 mg to 0.05 mg daily on 07/05 -Received first 0.05mg fludrocortisone dose on 07/06 - fludrocoristone to 0.05mg every day -monitor sodium and potassium #Acute encephalopathy-resolved Multifactorial: hypoxia, S/p shock, electrolytes imbalance Low density areas in both basal ganglia seen on head CT -Neurologist Dr. Jaeger was consulted. -EEG completed-interpreted as abnormal with diffuse slowing suggestive of a diffuse encephalopathy of hypoxic origin per neurology. #Hx Schizophrenia #Hx Depression -Held patient's home medication risperidone 4mg BID, Ziprasidone 60mg BID, and zolpidem 10mg PO HS. -continue with Sertraline 100mg daily #Hyperglycemia-resolved Patient had mild hyperglycemia that was uptrending. No history of diabetes. Likely due to steroid treatment. -Started on SSI lispro q6h -Monitor daily glucose checks #Macrocytic anemia Patient hemoglobin 9.2, MCV 114. No previous labs to compare to. No obvious signs of acute bleeding. On 06/23: Hb 6.9, transfused 1 unit PRBC Folate and B12 not depleted. -Monitor and replete for hgb < 7.0 -Patient received 1 unit PRBC (07/07) Health maintenance: Diet: Vital tube feeds at 35 ml/hr with 50ml of water flushes Q4h DVT prophylaxis: Lovenox 30 daily G.I prophylaxis: Pantoprazole Code: Full code Diso: Tele for LTACH placement hold Assessment and plan discussed with my senior resident Dr. Ogden & attending physician Dr. Jane Tran (PGY-1)- Internal medicine resident Senior resident attestation: Patient evaluated and examined at the bedside, plan of care discussed with rest of the team including my attending physician, except as noted. Quresh PGY2 Attending Provider Attestation/Addendum I reviewed labs, imaging, EKG, home medications and prior available records. Face to face evaluation was performed by me. I have personally examined the patient and discussed assessment and plan with the IM team. I reviewed the resident note and agree with the plan with exceptions as below. See my addendum on 07/15
--- NOTE | 2024-07-15 15:39 | ESDS_ITS ---
Planned Discharge Date 07/15/24 DS: Providers Provider Date of admission: 06/15/24 14:54 Primary care physician: Jayce Muñiz MD Admitting Provider: Tonja Alexander MD Attending Provider on Admission: Ronnie Lara MD Consults: 06/15/24 19:02 Referral Wound Care Routine Comment: 06/16/24 09:48 Referral Registered Dietitian Routine Comment: High protein diet 06/21/24 20:09 Consult to Neurology / Tele-Neurology Routine Comment: Consulting Provider: Rob Jaeger 07/01/24 10:34 Consult to General Surgery Urgent Comment: Consulting Provider: Gabi Titus 07/01/24 10:55 Consult to Gastroenterology Routine Comment: Consulting Provider: Mickie Bronson Attending Provider on DC: Kenna Jensen MD Discharging Provider: Kenna Jensen MD DS: Diagnosis Problem List Completed Was Problem List Reviewed/Reconciled?: Yes Hospital Course Hospital Course Hospital course: Ms. Wilson is a 54 year old female with a past medical history significant for Downs Syndrome, Schizophrenia, blindness, IBS, and hyperlipidemia who presented to [facility] ED on 06/15/24 after the caregiver found her unresponsive at home.Per caregiver patient had a cough for about five days, noted sore throat and diarrhea for 3 days, which is not uncommon for patient due to IBS. In the emergency department patient was found to have altered mental status with low GCS and found to have hypoxia with O2 sat 60% as well as hypotensive for which Pt received a dose epinephrine. Patient had CODE BLUE, with 1 dose of epi before ROSC. With continued hypoxic respiratory failure Pt. required intubation and mechanical ventilation. Pt was admitted to the ICU because of septic shock requiring pressor support as well. In the ICU patient was found to have MSSA Pneumonia and bacteremia and has been receiving IV antibiotics. Pt was extubated on 06/21/24 but was unable to protect her airways and reintubated on just after several hours. Patient was unfortunately unable to be weaned from ventilator and underwent tracheostomy and PEG tube placement on 07/03/24. Patient is at goal rate tube feds via PEG and on Mechanical ventilation via trach at nighttime and blow-by during the day. Patient is also suspected of having adrenal insufficiency and undergoing fludrocortisone taper and Midodrine is added for low blood pressure. Pt. is off pressor support for hypotension, shock is resolved and antibiotic coarse is complete. Pt is hemodynamically stable to be discharge to long-term acute care. Patient is being discharged up on midodrine 10 mg 3 times daily and fludrocortisone. We recommend to continue with these medications to maintain adequate blood pressure. Likely patient has some degree of adrenal insufficiency and does not require a tapering from fludrocortisone and can continue with this medication going forward. We also recommend not to follow a MAP goal above 65 due to the patient's overall frail appearance and thin body habitus weighing close to 50 pounds patient likely will have chronic hypotension and maintain adequate circulation at lower MAP targets. Recommend lactic acid for assessment of patient's hyperperfusion state and if lactic acid is within normal range patient's blood pressure will not require pressor support. #AHRF 2/2 #Aspiration Pneumonia #MSSA bacteremia #s/p tracheostomy #Macrocytic anemia #Hypotension #Septic Shock #Hx Schizophrenia #Hx Depression #Acute encephalopathy-resolved #Adrenal insufficiency #Hypokalemia #Hx IBS #Severe protein malnutrition #s/p PEG tube placement Status at Discharge Functional status at discharge: bed bound Overall status at discharge: patient is back to baseline Time Spent with Patient Time attestation: Total time spent providing and/or coordinating discharge services: Time spent: Greater than 30 minutes Exam Vital Signs Temp Pulse Resp BP Pulse Ox O2 Del Method O2 Flow Rate 97.0 F 60 12 94/59 L 100 Mechanical Ventilation 8 07/15/24 12:00 07/15/24 15:24 07/15/24 15:24 07/15/24 14:41 07/15/24 15:24 07/15/24 04:00 07/15/24 15:24 FiO2 30 07/15/24 15:24 Discharge Plan Plan Patient Disposition: Xfer Skilled Nsg Fac (SNF) Disposition Comment: To be admitted to ICU for critical care Care Plan Goals: Patient is discharged to subacute facility of [facility]. Antibiotics to be continued through July 13 for bacteremia and pneumonia. Patient is being discharged up on midodrine 10 mg 3 times daily and fludrocortisone. We recommend to continue with these medications to maintain adequate blood pressure. Likely patient has some degree of adrenal insufficiency and does not require a tapering from fludrocortisone and can continue with this medication going forward. We also recommend not to follow a MAP goal above 65 due to the patient's overall frail appearance and thin body habitus weighing close to 50 pounds patient likely will have chronic hypotension and maintain adequate circulation at lower MAP targets. Recommend lactic acid for assessment of patient's hyperperfusion state and if lactic acid is within normal range patient's blood pressure will not require pressor support. Prescriptions/Referrals Prescriptions/Med Rec: New acetaminophen 650 mg Suppository 650 mg MS Q4HR PRN (Reason: Pain Scale 1-3 (Mild) 30 Days Qty: 60 0RF atorvastatin 20 mg Tablet 40 mg PO HS 30 Days Qty: 60 0RF calcium carbonate 600 mg calcium (1,500 mg) Tablet 600 mg NG QDAY 30 Days Qty: 30 0RF aspirin [Children's Aspirin] 81 mg Tablet,Chewable 81 mg PO QDAY 30 Days Qty: 30 0RF albuterol sulfate 2.5 mg/0.5 mL Solution For Nebulization 2.5 mg INH Q8HRRT 30 Days Qty: 30 0RF acetaminophen 325 mg/10.15 mL Solution 650 mg NG Q4HR PRN (Reason: Pain Or Fever > 100.4) 30 Days Qty: 60 0RF ferrous sulfate 300 mg (60 mg iron)/5 mL Liquid 300 mg NG QDAY Qty: 120 0RF enoxaparin 30 mg/0.3 mL Syringe 30 mg SCi QDAY 30 Days Qty: 9 0RF dextrose 50 % in water (D50W) Syringe 25 ml IV Q15MIN PRN (Reason: BG 50-70 responsive npo pt) 30 Days Qty: 30 0RF dextrose 50 % in water (D50W) Syringe 50 ml IV Q15MIN PRN (Reason: BG <50 OR BG <70 & pt unresponsive) 30 Days Qty: 30 0RF fludrocortisone 0.1 mg Tablet 0.05 mg PO Q48H 30 Days Qty: 8 0RF glucagon HCl 1 mg/mL Recon Soln 1 mg IM Q15MIN PRN (Reason: BG <70, and no IV access) Qty: 10 0RF midodrine 5 mg Tablet 10 mg G-tube TID 30 Days Qty: 180 0RF magnesium hydroxide [Milk of Magnesia] 400 mg/5 mL Suspension 30 ml NG QDAY PRN (Reason: Constipation) 30 Days Qty: 5 0RF morphine 10 mg/mL Solution 2 mg IVP Q4HR MDD 8 mg PRN (Reason: Pain 4-10 or distress) 30 Days Qty: 30 0RF alum-mag hydroxide-simeth [Mag-Al Plus] 200-200-20 mg/5 mL Suspension 30 ml NG Q4HR PRN (Reason: Heartburn or Upset Stomach) 30 Days Qty: 30 0RF insulin lispro [Admelog U-100 Insulin lispro] 100 unit/mL Solution 0 unit SCi Q6HR 30 Days Qty: 30 0RF [id number] gluconate 12 mg iron/15 mL Liquid 15 ml NG QDAY Qty: 6000 0RF potassium, sodium phosphates [Phos-NaK] 280-160-250 mg Powder In Packet 1 packet PO BID Qty: 100 0RF pantoprazole 40 mg Recon Soln 40 mg IVP QDAY 30 Days Qty: 30 0RF sodium chloride 0.9 % Solution For Nebulization 3 ml INH PRN PRN (Reason: Soln) Qty: 90 0RF Infants' Gas Relief 40 mg/0.6 mL Syringe 40 mg G-tube BID 30 Days Qty: 120 0RF Pharmacy To Consult Pneumovacc [Pharmacy To Consult Patient] 1 ea .Route PRN PRN (Reason: vancomycin) 30 Days 0RF Rx Instructions: .Route Continued risperidone 4 mg Tablet 4 mg PO BID sertraline 100 mg Tablet 100 mg PO QDAY gemfibrozil 600 mg Tablet 600 mg PO BID zolpidem 10 mg Tablet 10 mg PO HS ziprasidone HCl 60 mg Capsule 60 mg PO BID Rx Instructions: give with food (meal/snack) Referrals: Jayce Muñiz MD [Primary Care Provider] - Patient/Caregiver Discharge Instructions Print Language: Botswanan Stand Alone Forms: [employer] Award Info., Patient Portal Info Letter Discharge Order Discharge Orders: Discharge (Routine); Ordered 07/15/24 Ordered By: Kenna Jensen Quality Discharge Quality Measures none MD Attestestation MD Attestation I reviewed labs, imaging, EKG, home medications and prior available records. Face to face evaluation was performed by me. I have personally examined the patient and discussed assessment and plan with the IM team. I reviewed the resident note and agree with the plan with exceptions as below. Acute hypoxic respiratory failure Aspiration pneumonia Shock, possibly septic S/p tracheostomy Status post PEG tube placement Malnutrition, CVA, BMI less than 15 MSSA bacteremia Down syndrome Acute hypotension Possible cortisol deficiency Added midodrine to fludrocortisone due to hypotension. Monitor BP. Discussed with Dr. Roe: Declined to accept the patient back to SNF given her hypotension, however may accept if she is DNR. Discussed with social work case manager: She got LTAC authorization and got the bed. Continue PEG tube feeds and oxygen via trach Cefazolin till 07/15 Repleted magnesium and potassium. Follow-up levels Time spent 40 minutes.
--- NOTE | 2024-07-15 16:25 | PC.SS ---
SS setup gurney transportation with Milvia from [facility] who transferred call to Gordo (from a different department). SS informed Gordo this transportation is for hospital d/c today, pt is on peg, trach, and blow by and SS is requesting [facility]. Gordo from [facility] is aware [facility] has been notified of transportation. Ref# [id number]. SS requested a transport time of 5 pm due to Weston from [facility] accepting pt after 7pm. Per Gordo from [facility] is not a guarantee transportation and transportation estimated time is 3-4 hours. SS has sent ambulance form and patient's facesheet and ref# to [facility] using [employer]. SS received call from Weston at [facility] who states they have been available and will accept pt after 7pm. Pt has been accepted to [facility], phone# [phone] address: [address] [place] [address] phone# for report is [phone]. Bedside nurse, Wyatt is aware. Caregiver, Ayala is aware. SS left voicemail for Erick Ohara, program manage of in take. Weston at [facility] is aware. SS provided Olimpia SEVILLA with information.
--- NOTE | 2024-07-15 19:21 | PC.NURSE ---
Report given to [facility] nurse eliane. No further questions asked and understanding of all instructions verbalized. Patient discharged with IV per LTAC request and MD order.
--- NOTE | 2024-07-15 19:23 | PC.NURSE ---
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 transferring to LTAC in [place]. Family at bedside taking pts belongings.
== END 2024-07-15 19:23 | disposition skilled nursing facility (03) | DRG 5 ==
LOC: SERX 12:24 → SERHOLD 15:14 → S2SX 16:37 → S2NX 07-07 15:55
PROVIDERS: Internal Medicine; Psychiatry & Neurology Neurology; Specialist; Student in an Organized Health Care Education/Training Program; Surgery; Admitting Provider Internal Medicine; Emergency Provider Emergency Medicine; PCP Family Medicine; Referring Provider Emergency Medicine; Visit Provider Student in an Organized Health Care Education/Training Program
PROC: 0DH63UZ Insertion of Feeding Device into Stomach, Percutaneous Approach (ICD-10-PCS; CPT 43246; principal; 2024-07-02 09:30)
PROC: 0B110F4 Bypass Trachea to Cutaneous with Tracheostomy Device, Open Approach (ICD-10-PCS; principal; 2024-07-03 12:00)
DX: A41.9 Sepsis, unspecified organism (principal); R65.21 Severe sepsis with septic shock; Q90.9 Down syndrome, unspecified; H54.8 Legal blindness, as defined in USA; F20.9 Schizophrenia, unspecified; K58.0 Irritable bowel syndrome with diarrhea; J96.01 Acute respiratory failure with hypoxia; G93.40 Encephalopathy, unspecified; E87.0 Hyperosmolality and hypernatremia; E87.8 Other disorders of electrolyte and fluid balance, not elsewhere classified; E86.1 Hypovolemia; N17.9 Acute kidney failure, unspecified; E86.0 Dehydration; D53.9 Nutritional anemia, unspecified; N39.0 Urinary tract infection, site not specified; J18.9 Pneumonia, unspecified organism; I24.89 Other forms of acute ischemic heart disease; D69.6 Thrombocytopenia, unspecified; J69.0 Pneumonitis due to inhalation of food and vomit; J15.211 Pneumonia due to Methicillin susceptible Staphylococcus aureus; F32.A Depression, unspecified; E27.40 Unspecified adrenocortical insufficiency; E87.6 Hypokalemia; E43 Unspecified severe protein-calorie malnutrition; Z68.1 Body mass index [BMI] 19.9 or less, adult; E78.5 Hyperlipidemia, unspecified; I07.1 Rheumatic tricuspid insufficiency; E87.1 Hypo-osmolality and hyponatremia; B96.20 Unspecified Escherichia coli [E. coli] as the cause of diseases classified elsewhere
CPT/HCPCS: 36415; 36600; 70450; 71045; 74018; 80048; 80053; 80069; 80074; 80202; 80307; 80320; 81001; 82436; 82607; 82746; 82803; 83036; 83605; 83690; 83735; 83880; 84100; 84132; 84133; 84295; 84300; 84443; 84484; 84703; 85014; 85018; 85025; 85610; 86703; 86850; 86900; 86901; 86923; 86927; 87040; 87077; 87081; 87086; 87106; 87186; 87205; 87502; 87811; 93005; 93306; 94002; 94003; 94640; 94660; 94667; 95816; 96360; 96361; 96365; 96372; 99291; A4216; A4217; A4649; A9270; J0295; J0330; J0689; J0696; J1120; J1200; J1265; J1642; J1643; J1650; J1720; J1815; J1940; J2060; J2185; J2250; J2270; J2470; J2543; J2598; J2704; J2760; J3010; J3370; J3411; J3430; J3475; J3480; J3490; J7040; J7042; J7050; J7070; J7120; J7999; P9016; P9047; P9060; G0480; J0690; J1644

== ENCOUNTER 2024-11-13 17:16 | Inpatient (IN) | payer MEDICAID, SELFPAY ==
[2024-11-13] VITALS (12 sets, daily range): BP systolic 60–80; BP diastolic 33–57; PULSE 64–145; RESP 17–28; TEMP 36.6–40.1; O2SAT 94–100; BMI 22.2
--- NOTE | 2024-11-13 17:26 | XR_ITS ---
Examination: AP chest single view TECHNIQUE: AP portable semiupright chest single view Date and time: November 13, 2024, 1809 hours Comparison September 19, 2024 INDICATIONS: Onset chest pain today FINDINGS: Significant bibasilar pneumonia Air distended stomach although gastrostomy tube is noted Moderate elevation left hemidiaphragm. Tracheostomy tube tip 5.2 cm above Jacquie. Prominent osteopenia IMPRESSION: Significant bibasilar pneumonia
--- NOTE | 2024-11-13 17:26 | EKG_ITS ---
[facility] Test Date: 2024-11-13 Pat Name: MATTHEW MILTON Department: Room: - Gender: Female Upstairs Maid: : 1970 Requested By: Janel Espinoza Order Number: [id number] Reading MD: Janel Espinoza Measurements Intervals [place] Rate: 118 P: 51 ND: 106 QRS: 25 QRSD: 75 T: 2 QT: 330 QTc: 463 Interpretive Statements SINUS TACHYCARDIA WITH SHORT ND INTERVAL NONSPECIFIC ST & T-WAVE ABNORMALITY ABNORMAL RHYTHM ECG Compared to ECG 09/19/2024 20:57:45 Short ND interval now present T-wave abnormality now present Sinus rhythm no longer present Myocardial infarct finding no longer present /store/S0/[id number]
[2024-11-13] MEDS: SODIUM CL RT SOL 3% 4 ML NEBU (NON-FORMULARY) INH (17:32)
[2024-11-13] MEDS: LEVALBUTEROL RT 1.25 MG/0.5 ML NEBU INH (17:32)
--- NOTE | 2024-11-13 17:37 | PD.EDSOB ---
ED SOB =RME/HPI General Chief Complaint: Shortness of Breath/Dyspnea Stated Complaint: RESPIRATORY DISTRESS Time Seen by Provider: 11/13/24 17:32 Arrival date/time: 11/13/24 17:16 RME / HPI RME / HPI Narrative: 54 year old female with a history of down syndrome, chronic respiratory failure with hypoxia, s/p tracheostomy, COPD, nonverbal, positional hypotension, diabetes, chronic anemia presents to the ED brought to the ED from the subacute unit for evaluation of acute shortness of breath. According to facility nursing staff, the patient typically maintains oxygen saturations in the high 90s and a resting heart rate in the low 50s. Around noon today, she was noted to have oxygen saturation of 89% on blow-by oxygen and became tachycardic to the 130s. Suctioning and albuterol treatments were attempted without improvement. Additionally, staff noted a change in behavior: the patient, who is usually cheerful and engages with toys, appeared less interactive today. Related Data Home Medications ?Medication ?Instructions ?Recorded ?Confirmed Lansoprazole 30mg Odt Tablet 30 mg GT DAILY 11/10/24 11/10/24 acetaminophen 325 mg tablet 650 mg G-tube Q6HR PRN Pain 11/10/24 11/10/24 albuterol sulfate 2.5 mg/3 mL 2.5 mg INH Q8HRRT PRN Shortness Of 11/10/24 11/10/24 (0.083 %) solution for nebulization Breath Or Wheeze aspirin 81 mg chewable tablet 81 mg G-tube QDAY 11/10/24 11/10/24 atorvastatin 40 mg tablet 40 mg G-tube HS 11/10/24 11/10/24 bisacodyl 10 mg rectal suppository 10 mg ND PRN PRN No BM Per Bowel 11/10/24 11/10/24 (Dulcolax (bisacodyl)) Management Protocol carbamide peroxide 6.5 % ear drops 5 drp otic (ear) Q61D 11/10/24 11/10/24 (Ear Wax Removal Drops) carbamide peroxide 6.5 % ear drops 5 drp otic (ear) Q61D 11/10/24 11/10/24 (Ear Wax Removal Drops) carbamide peroxide 6.5 % ear drops 5 drp otic (ear) Q61D 11/10/24 11/10/24 (Ear Wax Removal Drops) carbamide peroxide 6.5 % ear drops 5 drp otic (ear) Q61D 11/10/24 11/10/24 (Ear Wax Removal Drops) carbamide peroxide 6.5 % ear drops 5 drp otic (ear) Q61D 11/10/24 11/10/24 (Ear Wax Removal Drops) carbamide peroxide 6.5 % ear drops 5 drp otic (ear) Q61D 11/10/24 11/10/24 (Ear Wax Removal Drops) carbamide peroxide 6.5 % ear drops 5 drp otic (ear) Q61D 11/10/24 11/10/24 (Ear Wax Removal Drops) carbamide peroxide 6.5 % ear drops 5 drp otic (ear) Q61D 11/10/24 11/10/24 (Ear Wax Removal Drops) ferrous sulfate 220 mg (44 mg 300 mg G-tube DAILY 11/10/24 11/10/24 iron)/5 mL oral elixir insulin lispro 100 unit/mL See Rx Instructions SCi 06,18 11/10/24 11/10/24 subcutaneous pen magnesium hydroxide 400 mg/5 mL 15 ml G-tube PRN PRN Constipation 11/10/24 11/10/24 oral suspension (Milk of Magnesia) midodrine 10 mg tablet 10 mg G-tube Q6H 11/10/24 11/10/24 multivitamin 1 tab G-tube QDAY 11/10/24 11/10/24 polyethylene glycol 3350 17 gram 17 g G-tube PRN PRN No BM Per 11/10/24 11/10/24 oral powder packet Bowel Management Protocol sertraline 50 mg tablet 100 mg G-tube QDAY 11/10/24 11/10/24 silver nitrate applicators 75 %-25 1 ea top QWEEK PRN Hypergranulated 11/10/24 11/10/24 % topical stick stoma tissue simethicone 80 mg chewable tablet 40 mg G-tube Q12H 11/10/24 11/10/24 sodium phosphates 19 gram-7 133 ml ND PRN PRN No BM Per Bowel 11/10/24 11/10/24 gram/118 mL enema (Fleet Enema) Management Protocol Allergies Allergy/AdvReac Type Severity Reaction Status Date / Time No Known Allergies Allergy Unverified 06/15/24 10:42 Review of Systems Review of Systems ROS Unobtainable: unobtainable due to medical condition Past Medical History Past Medical History NEUROLOGIC: Positive Seizures (From sodium levels per caregiver) CARDIAC: Positive Hypercholesterolemia and Hypotension RESPIRATORY: Positive Pneumonia GASTROINTESTINAL: Positive Gastrointestinal Disorders (Rectal protrusion), Irritable Bowel and Gastroesophageal Reflux Disease ENT: Positive Blind ENDOCRINE: Positive Diabetes Mellitus Type 2 PSYCHO/SOCIAL: Positive Psychiatric Problems, Schizophrenia, Bipolar Disorder, Behavior Problems, Self-Mutilation and Eating Disorder (pica) OTHER HISTORY: Positive Hospitalization, Developmental Delay, Falls and Blood Transfusions Surgical History SURGICAL: Positive Eye Surgery Social History SMOKING STATUS: Unknown if ever smoked SECOND HAND EXPOSURE: No ED Exam Narrative Physical exam: GENERAL APPEARANCE: Patient is cachectic, frail, nonverbal at baseline, tachypneic, warm to touch HEENT: Normocephalic, atraumatic; pupils equal, round, reactive to light; EOMI; mucous membranes pink, moist; oropharynx clear NECK: Supple LUNGS: Tachypneic. rales and rhonchi; no wheezes, no rales, no rhonchi HEART: Tachycardic; normal S1, S2; no murmurs ABDOMEN: non distended; normal BS; soft, no tenderness, no guarding, no rebound; no masses, no organomegaly, no hernia EXTREMITIES: contractured extremities; no edema NEUROLOGIC: Awake, nonverbal at baseline, contractured extremities SKIN: warm, dry, normal color; no rashes Course Quality Measures Current suspected stage: sepsis Possible source: unknown (source unknown at sign out ) Blood cultures ordered: completed in ED Antibiotic ordered: Yes Pertinent labs: 11/13/24 17:35 Lactic Acid 3.4 H mMol/L (0.4-2.0) Procalcitonin Pending sepsis Orders Category Date Time Status Remediation Consultant NOW Care 11/13/24 17:26 Active EKG (ED ONLY) *Do not use* NOW Care 11/13/24 17:26 Completed EKG (ED Only) Stat Exams 11/13/24 17:26 Draft XR chest 1V portable Stat Exams 11/13/24 17:26 Ordered B-Type Natriuretic Peptide Stat Lab 11/13/24 17:26 Ordered Blood Culture (Lab) Stat Lab 11/13/24 17:26 Ordered CBC Stat Lab 11/13/24 17:26 Ordered Comprehensive Metabolic Panel Stat Lab 11/13/24 17:26 Ordered Lactate (Lactic Acid) Stat Lab 11/13/24 17:26 Ordered Lipase Stat Lab 11/13/24 17:26 Ordered Magnesium Stat Lab 11/13/24 17:26 Ordered Partial Thromboplastin Time Stat Lab 11/13/24 17:26 Ordered Procalcitonin Stat Lab 11/13/24 17:26 Ordered Prothrombin Time with INR Stat Lab 11/13/24 17:26 Ordered Troponin I Stat Lab 11/13/24 17:26 Ordered Urinalysis Stat Lab 11/13/24 17:26 Ordered Urine Culture Stat Lab 11/13/24 17:26 Ordered ACETAMINOPHEN 325 mg SUPP [Tylenol Supp] Med 11/13/24 17:27 Discontinued 325 mg ND X1 ONE Azithromycin Inj [Zithromax Inj] 500 mg Med 11/13/24 17:26 Active Sodium Chloride 0.9% 250 ml [Ns] 250 ml IV X1 Levalbuterol Rt [Xopenex Rt Noreen] Med 11/13/24 17:26 Discontinued 1.25 mg INH X1 ONE Sodium Chloride Rt Noreen 0.9% [NS Rt Noreen 0.9%] Med 11/13/24 17:26 Active 3 ml INH PRN PRN Sodium Chloride Rt Noreen 3% [NS Rt Noreen 3%] Med 11/13/24 17:26 Discontinued 4 ml INH X1 ONE cefTRIAXone/D5w 1gm IV premix [Rocephin/D5w 1gm IV Med 11/13/24 17:26 Active premix] 1 gm in 50 ml IV X1 Vital Signs Vital signs: Vital Signs Temperature 104.2 F H 11/13/24 17:25 Pulse Rate 135 H 11/13/24 17:25 Respiratory Rate 28 H 11/13/24 17:25 Blood Pressure 60/50 L 11/13/24 17:25 Pulse Oximetry (%) 94 L 11/13/24 17:25 Oxygen Delivery Method Blow-by 11/13/24 17:25 Oxygen Flow Rate 10 11/13/24 17:25 Fraction of Inspired Oxygen 35 11/13/24 17:25 Shortness of Breath / Dyspnea MDM Narrative MDM Narrative:: Juanita Mariscal am scribing for and in the presence of Dr. Fraser. Patient data External records reviewed:: [facility] previous records (I reviewed H&P on 09/19/2024) Clinical information provided by:: other (specify) (RN ) Social determinants that could affect healthcare access:: housing (subacute resident ) Patient has the following chronic illnesses:: down syndrome, chronic respiratory failure with hypoxia, s/p tracheostomy, COPD, nonverbal, positional hypotension, diabetes, chronic anemia How is presenting disease/condition affected by chronic disease/condition?: exacerbated by Evaluation data The following diagnostics were reviewed and interpreted by me:: other (specify) (No diagnostics resulted at time of sign out ) Lab and/or radiology exams considered but not ordered:: None Interpretation Summary: No diagnostics resulted at time of sign out Medications / Prescriptions Medications or Prescriptions considered but not ordered:: None Medication administrations:: Medication Administration History Azithromycin 500 mg/ Sodium (Chloride) 250 mls @ 250 mls/hr IV X1 ONE Stop: 11/13/24 18:25 Ceftriaxone Sodium/Dextrose (Rocephin/D5w 1gm Iv Premix) 1 gm in 50 mls @ 100 mls/hr IV X1 ONE Stop: 11/13/24 17:55 Sodium Chloride (Sodium Chloride Rt Noreen 0.9% 3 Ml Nebu) 3 ml INH PRN PRN PRN Reason: SOLN Stop: 12/13/24 17:25 Discontinued Medications Acetaminophen (Acetaminophen Supp 325 Mg Supp) 325 mg ND X1 ONE Stop: 11/13/24 17:28 Levalbuterol HCl (Levalbuterol Rt 1.25 Mg/0.5 Ml Nebu) 1.25 mg INH X1 ONE Stop: 11/13/24 17:27 Last Admin: 11/13/24 17:32 Dose: 1.25 mg Documented By: ROMEO Sodium Chloride (Sodium Cl Rt Noreen 3% 4 Ml Nebu (Non-Formulary)) 4 ml INH X1 ONE Stop: 11/13/24 17:27 Last Admin: 11/13/24 17:32 Dose: 4 ml Documented By: ROMEO See above Consultations Consultation(s) initiated? (list below): No Diagnosis Shortness of Breath Differential Diagnosis: acute exacerbation of chronic obstructive airways disease, congestive heart failure, community acquired pneumonia, asthma with exacerbation and pulmonary embolism Most likely diagnosis given after review of the tests above:: Hypoxia Admission Indicated Admission indicated?: not indicated Explain why admission is indicated or not indicated:: Signed out to Dr. Veloz pending final disposition Admission Request Was there a request for admission?: No Disposition Plan Disposition Plan: other (specify) (Signed out to Dr. Veloz ) Discharge Plan Prescriptions/Referrals Prescriptions/Med Rec: No Action multivitamin Tablet 1 tab G-tube QDAY Rx Instructions: supplement atorvastatin 40 mg Tablet 40 mg G-tube HS Label Comments: hyperlipidemia acetaminophen 325 mg Tablet 650 mg G-tube Q6HR PRN (Reason: Pain) Label Comments: Please do not exceed more than 3grams of acetaminophen from all sources in 24 hours albuterol sulfate 2.5 mg /3 mL (0.083 %) Solution For Nebulization 2.5 mg INH Q8HRRT PRN (Reason: Shortness Of Breath Or Wheeze) polyethylene glycol 3350 17 gram Powder In Packet 17 g G-tube PRN PRN (Reason: No BM Per Bowel Management Protocol) Label Comments: Administer as needed if 2nd round bowel protocol ineffective. Rx Instructions: Mix with 4oz of water before giving. Hold tube feeding for 30 minutes after administration. Notify provider if no results from Miralax. magnesium hydroxide [Milk of Magnesia] 400 mg/5 mL Suspension 15 ml G-tube PRN PRN (Reason: Constipation) Rx Instructions: CONC: 400MG/5ML bisacodyl [Dulcolax (bisacodyl)] 10 mg Suppository 10 mg ND PRN PRN (Reason: No BM Per Bowel Management Protocol) Rx Instructions: Administer as needed on 6th shift, if MOM ineffective. Fleet Enema 19-7 gram/118 mL Enema 133 ml ND PRN PRN (Reason: No BM Per Bowel Management Protocol) Label Comments: If Dulcolax is ineffective on 3rd day / 7th shift, give Fleets enema per Bowel Management Protocol. Notify MD if no results from Enema. Ear Wax Removal Drops 6.5 % Drops 5 drp otic (ear) Q61D Label Comments: 5 drops per ear at first med pass of shift. Then irrigate ears with NS at next med pass of each shift x 4 days for wax build up. Ear Wax Removal Drops 6.5 % Drops 5 drp otic (ear) Q61D Rx Instructions: 5 drops per ear at first med pass of shift. Then irrigate ears with NS at next med pass of each shift x 4 days for wax build up. *Start on the of the month, every two months. Ear Wax Removal Drops 6.5 % Drops 5 drp otic (ear) Q61D Label Comments: 5 drops per ear at first med pass of shift. Then irrigate ears with NS at next med pass of each shift x 4 days for wax build up. Ear Wax Removal Drops 6.5 % Drops 5 drp otic (ear) Q61D Rx Instructions: 5 drops per ear at first med pass of shift. Then irrigate ears with NS at next med pass of each shift x 4 days for wax build up. *Start on the of the month, every two months. Ear Wax Removal Drops 6.5 % Drops 5 drp otic (ear) Q61D Label Comments: 5 drops per ear at first med pass of shift. Then irrigate ears with NS at next med pass of each shift x 4 days for wax build up. Ear Wax Removal Drops 6.5 % Drops 5 drp otic (ear) Q61D Label Comments: 5 drops per ear at first med pass of shift. Then irrigate ears with NS at next med pass of each shift x 4 days for wax build up. Ear Wax Removal Drops 6.5 % Drops 5 drp otic (ear) Q61D Rx Instructions: 5 drops per ear at first med pass of shift. Then irrigate ears with NS at next med pass of each shift x 4 days for wax build up. *Start on the of the month, every two months. Ear Wax Removal Drops 6.5 % Drops 5 drp otic (ear) Q61D Label Comments: 5 drops per ear at first med pass of shift. Then irrigate ears with NS at next med pass of each shift x 4 days for wax build up. aspirin 81 mg Tablet,Chewable 81 mg G-tube QDAY Label Comments: CVA prevention sertraline 50 mg Tablet 100 mg G-tube QDAY Label Comments: Schizophrenia MB restlessness , BBW simethicone 80 mg Tablet,Chewable 40 mg G-tube Q12H Label Comments: gas midodrine 10 mg Tablet 10 mg G-tube Q6H Label Comments: Hypotension (BBW) Rx Instructions: Hold for SBP>120 insulin lispro 100 unit/mL Insulin Pen See Rx Instructions SCi Label Comments: DM Rx Instructions: Per Sliding Scale With sliding scale coverage 0-150=0 units, 151-200=2 units, 201-250=4 units, 251-300=6 units, 301-350=8 units, 351-400=10 units, >400 =12 units and call silver nitrate applicators 75-25 % Stick 1 ea top QWEEK PRN (Reason: Hypergranulated stoma tissue) ferrous sulfate 220 mg (44 mg iron)/5 mL Elixir 300 mg G-tube DAILY Label Comments: anemia Rx Instructions: CONC: 220mg/5ml Give 6.8mL Lansoprazole 30mg Odt Tablet 30 mg GT DAILY Label Comments: GERD Patient/Caregiver Discharge Instructions Print Language: Bulgarian
[2024-11-13 17:51] LABS: Lactate (Lactic Acid) 3.4 mMol/L (0.4-2.0)
[2024-11-13 17:54] LABS: Basophils # (Auto) 0.1 Thou/mm3 (0.0-0.2); Basophils % (Auto) 0 % (0-2.5); Eosinophils % (Auto) 0 % (0-10); Hematocrit 32.5 % (36.0-46.0); Hemoglobin 10.8 g/dL (12.0-16.0); Immature Granulocytes % (Auto) 1 % (0-0); Immature Granulocytes Auto 0.15 Thou/mm3 (0.00-0.00); Lymphocytes # (Auto) 1.9 Thou/mm3 (1.0-4.8); Lymphocytes % (Auto) 8 % (10-50); Mean Corpuscular HGB Conc 33.2 g/dl (31.0-37.0); Mean Corpuscular Hemoglobin 33.6 pg (25.0-35.0); Mean Corpuscular Volume 101 fL (80-100); Monocytes # (Auto) 0.5 Thou/mm3 (0.0-0.8); Monocytes % (Auto) 2 % (0-12); Neutrophils # (Auto) 20.6 Thou/mm3 (1.8-7.7); Neutrophils % (Auto) 89 % (37-80); Nucleated Red Blood Cell % 0 /100 WBC (0); Platelet Count 591 Thou/mm3 (140-440); RDW Standard Deviation 55.7 fL (36.4-46.3); Red Blood Count 3.21 Miln/mm3 (4.00-5.20); White Blood Count 23.2 Thou/mm3 (3.6-11.0)
[2024-11-13] MEDS: ACETAMINOPHEN SUPP 325 MG SUPP PR (18:00)
[2024-11-13] MEDS: cefTRIAXone/D5w 1gm IV premix 1 GM/50 ML BAG IV (18:06)
--- NOTE | 2024-11-13 18:06 | PD.EDADDENDU ---
Emergency Room Addendum <Sujata Muñiz - Last Filed: 11/13/24 19:17> Addendum Narrative: I took over the care from Dr. Fraser at 6 PM on 11/13/2024, see her notes for complete H&P and ED course. I reviewed all diagnostic test results. My interpretation of the EKG is sinus tachycardia with no acute ST-T changes. My interpretation of the chest x-ray is infiltrates. Blood tests and urine tests show WBC of 23.2, BUN 26, Lactic Acid 3.4, CRP 1.9. At this point, diagnoses include Treatment here included No significant improvement. I discussed the case with our hospitalist. About the presentation and exam and diagnostics and treatments here. And need of further care in the hospital. Will accept the patient. <Santiago Veloz MD - Last Filed: 11/13/24 21:52> Addendum Narrative: I took over the care from Dr. Fraser at 6 PM on 11/13/2024, see her notes for complete H&P and ED course. I reviewed all diagnostic test results. My interpretation of the EKG is sinus tachycardia with no acute ST-T changes. My interpretation of the chest x-ray is infiltrates. Blood tests remarkable for WBC 23.2 and lactic acid 3.4. UA showed positive leukocyte Estrace, RBC, WBC, and bacteria. COVID/influenza negative. At this point, diagnoses include sepsis, pneumonia, UTI. Treatment here included IV fluid, Rocephin, Zithromax, Tylenol, Toradol. No significant improvement. I discussed the case with our hospitalist. About the presentation and exam and diagnostics and treatments here. And need of further care in the hospital. Will accept the patient.
[2024-11-13 18:16] LABS: B-Type Natriuretic Peptide 65 pg/mL (0-100)
[2024-11-13 18:22] LABS: Alanine Aminotransferase 107 U/L (10-49); Albumin, Serum 3.5 gm/dL (3.5-5.0); Albumin/Globulin Ratio 0.9 (1.2-2.2); Alkaline Phosphatase 147 U/L (46-116); Anion Gap 9 (7-16); Aspartate Amino Transferase 71 U/L (0-34); BUN/Creatinine Ratio 37 Ratio (12-20); Bilirubin,Total < 0.2 mg/dL (0.3-1.2); Blood Urea Nitrogen 26 mg/dL (9-23); Calcium 8.4 mg/dL (8.3-10.6); Calcium (Corrected) 8.8 mg/dL (8.5-10.1); Chloride 100 mMol/L (98-107); Creatinine (Component) 0.7 mg/dL (0.6-1.3); Estimated Creatinine Clearance 49.1 mL/min (>60); Glucose 171 mg/dL (74-106); Lipase 65 U/L (12-53); Magnesium 1.6 mg/dL (1.6-2.6); Osmolality,Calculated 291 (275-295); Potassium 4.6 mMol/L (3.4-5.1); Procalcitonin 0.14 ng/ml (0.0-0.49); Sodium 142 mMol/L (136-145); Total Protein 7.5 gm/dL (5.7-8.2); Troponin I < 0.020 ng/mL (0.0-0.045); eGFR > 60 See Note
[2024-11-13] MEDS: LORazepam 2 MG/ML VIAL 0.75 MG IVP (18:24)
[2024-11-13] MEDS: KETOROLAC INJ 30 MG/ML VIAL 15 MG IVP (18:29)
[2024-11-13] MEDS: AZITHROMYCIN INJ 500 MG in SODIUM CHLORIDE 0.9% 250 ML 250 ML 250 MG IV (18:32)
[2024-11-13 18:48] LABS: C-Reactive Protein 1.9 mg/dL (0.0-0.9)
[2024-11-13 18:50] LABS: Sed Rate (ESR) 72 mm/hr (0-30)
[2024-11-13 19:13] LABS: INR 1.1 (0.9-1.3); Prothrombin Time 12.4 Seconds (9.0-12.2)
[2024-11-13 20:05] LABS: Collection Type, Urine Clean Catch
[2024-11-13] MEDS: ENOXAPARIN SOD INJ 40 MG/0.4 ML SYRINGE SC (20:44)
[2024-11-13] MEDS: RINGERS LACTATED 1000 ML 1,000 ML 999 ML IV (20:46)
[2024-11-13 20:48] LABS: Reflex Lactate? Y
[2024-11-13 20:54] LABS: Base Excess 8 (-3-3); HCO3 33 mEq/L (20-26); Inspired Oxygen, FIO2 50 %; O2 Saturation 99 % (91-98); PCO2 43 mmHg (32.0-48.0); PO2 107 mmHg (83-108); pH, Arterial 7.49 (7.35-7.45)
[2024-11-13 20:57] LABS: Bacteria,Urine Rare; Bilirubin,Urine Negative (Negative); Blood,Urine 2+ (Negative); Clarity,Urine Turbid (Clear/Hazy); Color,Urine Yellow (Lt Yel-Yel); Glucose, Urine Negative (Negative); Ketones,Urine Negative (Negative); Leukocyte Esterase,Urine Positive (Negative); Nitrite,Urine Negative (Negative); Protein,Urine 1+ (Neg - Trace); RBC,Urine 94 /hpf (0-3); Specific Gravity,Urine 1.025 (1.001-1.035); Squamous Epithelial Cell,Urine 1 /hpf (0-5); Transitional Epi Cells,Urine < 1 /hpf (0-5); WBC,Urine 32 /hpf (0-5)
[2024-11-13 21:00] LABS: Allen Test Performed/OK; Puncture Site Right Brachial
--- NOTE | 2024-11-13 21:18 | PC.NURSE ---
PT POINT OF CONTACT CALLED FOR UPDATE ADVISED WOULD CALL BACK ATTEMPTED CALL TWICE NO ANSWER
--- NOTE | 2024-11-13 21:26 | PC.NURSE ---
POINT OF CONTACT KODY CALLED BACK ADVISED THAT PT IS GOING TO BE ADMITTED AT THIS TIME SHE WAS NOT SHE IF SHE WAS GOING BACK TO [facility] ADVISED SHE IS GOING TO TELE.
[2024-11-13 21:46] LABS: Lactic Acid, 3 HR 2.6 mMol/L (0.4-2.0)
[2024-11-13] MEDS: MIDODRINE 5 MG TABLET 10 MG GT (22:49)
--- NOTE | 2024-11-13 23:04 | PD.RESHP ---
Documentation for date of: 11/13/24 HPI History of Present Illness History of present illness: Reshma Wilson is 54 yr female with PMH of Downs Syndrome, Schizophrenia, blindness, IBS, and hyperlipidemia, hypotension on midodrine, trach, PEG, type 2 diabetes, COPD presenting to ED from subacute after SOB. Information was obtained from chart review and ED note. According to facility nursing staff, the patient typically maintains oxygen saturations in the high 90s and a resting heart rate in the low 50s. Around noon today, she was noted to have oxygen saturation of 89% on blow-by oxygen and became tachycardic to the 130s. Suctioning and albuterol treatments were attempted without improvement. Additionally, staff noted a change in behavior: the patient, who is usually cheerful and engages with toys, appeared less interactive today. Patient's sister was at bedside who stated that patient is typically able to recognize and engage with her. On attempt to interact, patient did not open eyes to verbal stimulation by her sister. In ED, BP soft 60/50, tachycardia 135, tachypnic 28, fever of 104.2, on blow by saturating 94%O2 on Fio2 35%. Leukocytosis 23, Hb 10, MCV 101, platelets 591. Sodium 142, 4.6, metabolic alkalosis bicarb 33, Cr 0.7. Elevated LA 3.4, transaminits AST 71, ALT 107, elevated CRP 1.9. UA positive for leukocyte esterase, WBC 32. ABG pH 7.49, CO2 43. Sinus tachycardia with rate 118, Qtc 463 on EKG. CXR showed bibasliar PNA. Was given levalbuterol 1.25, acetaminophen 325mg, ceftriaxone 1g x1, lorazepam .75mg x1, ketorolac 15, azithromycin 500mg x1. Pateint to be admitted for sepsis 2/2 CAP. PMH: as noted above PSH: tracheostomy, PEG tube placement FamHx: unknown Social: resides at subacute. Meds: med rec pending Allergies: NKDA Review of Systems Review of Systems ROS Unobtainable: unobtainable due to medical condition Exam Vital Signs Temp Pulse Resp BP Pulse Ox O2 Del Method O2 Flow Rate 100.4 F 72 21 H 77/35 L 100 Trach Collar 10 11/13/24 20:28 11/13/24 22:49 11/13/24 20:57 11/13/24 22:49 11/13/24 20:57 11/13/24 20:28 11/13/24 20:57 FiO2 50 11/13/24 20:57 Narrative Exam General: Petite, somnolent, thing appearing, No acute distress HEENT: NCAT, No JVD noted. Mucosa dry. Pupils are equal and reactive to light bilaterally Cardiovascular: Normal S1 and S2. Regular rate and rhythm. Respiratory: Lungs are clear to auscultation bilaterally. No wheezing or crackles heard. Abdomen: Soft, nontender, not distended, normal bowel sounds. PEG tube in place, no bleeding or drainage. Skin: Warm to touch, dry, no rashes noted Musculoskeletal: No gross injuries. No pitting edema Neuro: Unable to asses mentation or neuro deficits. Responds with movement to sternal rub. Results: Labs 11/13/24 17:35 11/13/24 17:35 Labs: Short CBC 11/13/24 Range/Units 17:35 WBC 23.2 H (3.6-11.0) Thou/mm3 Hgb 10.8 L (12.0-16.0) g/dL Hct 32.5 L (36.0-46.0) % Plt Count 591 H D (140-440) Thou/mm3 BMP 11/13/24 17:35 Sodium 142 Potassium 4.6 Chloride 100 Carbon Dioxide 33.0 H BUN 26 H Creatinine 0.7 Glucose 171 H Calcium 8.4 Cardiac Enzymes 11/13/24 Range/Units 17:35 Troponin I < 0.020 (0.0-0.045) ng/mL Liver Function 11/13/24 Range/Units 17:35 Total Bilirubin < 0.2 L (0.3-1.2) mg/dL AST 71 H (0-34) U/L ALT 107 H (10-49) U/L Alkaline Phosphatase 147 H (46-116) U/L Albumin 3.5 (3.5-5.0) gm/dL Urine 11/13/24 Range/Units 19:51 Urine Color Yellow (Lt Yel-Yel) Urine Clarity Turbid A (Clear/Hazy) Urine pH 5.0 (5.0-7.0) Ur Specific [place] 1.025 (1.001-1.035) Urine Protein 1+ A (Neg - Trace) Urine Glucose (UA) Negative (Negative) ABG Interpretation ABG results: 11/13/24 20:49 ABG pH 7.49 H ABG pCO2 43 ABG pO2 107 ABG HCO3 33 H ABG O2 Saturation 99 H ABG Base Excess 8 H Quality Measures Quality Measures sepsis Current suspected stage: sepsis Possible source: unknown (source unknown at sign out ) Blood cultures ordered: completed in ED Antibiotic ordered: Yes Medications Home Medications and Allergies Home Medications ?Medication ?Instructions ?Recorded ?Confirmed ?Type Lansoprazole 30mg Odt Tablet 30 mg GT DAILY 11/10/24 11/13/24 History acetaminophen 325 mg tablet 650 mg G-tube Q6HR PRN Pain 11/10/24 11/13/24 History albuterol sulfate 2.5 mg/3 mL 2.5 mg INH Q8HRRT PRN Shortness Of 11/10/24 11/13/24 History (0.083 %) solution for nebulization Breath Or Wheeze aspirin 81 mg chewable tablet 81 mg G-tube QDAY 11/10/24 11/13/24 History atorvastatin 40 mg tablet 40 mg G-tube HS 11/10/24 11/13/24 History bisacodyl 10 mg rectal suppository 10 mg MI PRN PRN No BM Per Bowel 11/10/24 11/13/24 History (Dulcolax (bisacodyl)) Management Protocol carbamide peroxide 6.5 % ear drops 5 drp otic (ear) Q61D 11/10/24 11/13/24 History (Ear Wax Removal Drops) carbamide peroxide 6.5 % ear drops 5 drp otic (ear) Q61D 11/10/24 11/13/24 History (Ear Wax Removal Drops) carbamide peroxide 6.5 % ear drops 5 drp otic (ear) Q61D 11/10/24 11/13/24 History (Ear Wax Removal Drops) carbamide peroxide 6.5 % ear drops 5 drp otic (ear) Q61D 11/10/24 11/13/24 History (Ear Wax Removal Drops) carbamide peroxide 6.5 % ear drops 5 drp otic (ear) Q61D 11/10/24 11/14/24 History (Ear Wax Removal Drops) carbamide peroxide 6.5 % ear drops 5 drp otic (ear) Q61D 11/10/24 11/14/24 History (Ear Wax Removal Drops) carbamide peroxide 6.5 % ear drops 5 drp otic (ear) Q61D 11/10/24 11/14/24 History (Ear Wax Removal Drops) carbamide peroxide 6.5 % ear drops 5 drp otic (ear) Q61D 11/10/24 11/14/24 History (Ear Wax Removal Drops) ferrous sulfate 220 mg (44 mg 300 mg G-tube DAILY 11/10/24 11/13/24 History iron)/5 mL oral elixir insulin lispro 100 unit/mL See Rx Instructions SCi 06,18 11/10/24 11/13/24 History subcutaneous pen magnesium hydroxide 400 mg/5 mL 15 ml G-tube PRN PRN Constipation 11/10/24 11/13/24 History oral suspension (Milk of Magnesia) midodrine 10 mg tablet 10 mg G-tube Q6H 11/10/24 11/13/24 History multivitamin 1 tab G-tube QDAY 11/10/24 11/13/24 History polyethylene glycol 3350 17 gram 17 g G-tube PRN PRN No BM Per 11/10/24 11/13/24 History oral powder packet Bowel Management Protocol sertraline 50 mg tablet 100 mg G-tube QDAY 11/10/24 11/13/24 History silver nitrate applicators 75 %-25 1 ea top QWEEK PRN Hypergranulated 11/10/24 11/13/24 History % topical stick stoma tissue simethicone 80 mg chewable tablet 40 mg G-tube Q12H 11/10/24 11/13/24 History sodium phosphates 19 gram-7 133 ml MI PRN PRN No BM Per Bowel 11/10/24 11/13/24 History gram/118 mL enema (Fleet Enema) Management Protocol Allergies Allergy/AdvReac Type Severity Reaction Status Date / Time No Known Allergies Allergy Unverified 06/15/24 10:42 Visit Medications Acetaminophen (Acetaminophen Noreen 325 Mg/10 Ml Udc) 650 mg GT Q6H PRN PRN Reason: Fever >100.3 or pain 1-3 Stop: 12/13/24 20:35 Albuterol/Ipratropium (Albuterol/Ipratropium (Duoneb) Rt Noreen 3 Ml Nebu) 3 ml INH Q4HRRT PRN PRN Reason: SHORTNESS OF BREATH Stop: 12/13/24 22:59 Enoxaparin Sodium (Enoxaparin Sod Inj 40 Mg/0.4 Ml Syringe) 40 mg SC QDAY [facility] Stop: 11/27/24 20:44 Last Admin: 11/13/24 20:44 Dose: 40 mg Ceftriaxone Sodium/Dextrose (Rocephin/D5w 1gm Iv Premix) 1 gm in 50 mls @ 100 mls/hr IV QDAY [facility] Stop: 11/21/24 08:59 Azithromycin 500 mg/ Sodium (Chloride) 250 mls @ 250 mls/hr IV QDAY [facility] Stop: 11/21/24 08:59 Lansoprazole (Lansoprazole 30 Mg Tab.Rap.Dr) 30 mg GT QDAY [facility] Stop: 12/14/24 08:59 Midodrine (Midodrine 5 Mg Tablet) 10 mg GT TID LIZ Stop: 12/13/24 22:29 Last Admin: 11/13/24 22:49 Dose: 10 mg Sodium Chloride (Sodium Chloride Rt Noreen 0.9% 3 Ml Nebu) 3 ml INH PRN PRN PRN Reason: SOLN Stop: 12/13/24 17:25 Discontinued Medications Acetaminophen (Acetaminophen Supp 325 Mg Supp) 325 mg MI X1 ONE Stop: 11/13/24 17:28 Last Admin: 11/13/24 18:00 Dose: 325 mg Azithromycin 500 mg/ Sodium (Chloride) 250 mls @ 250 mls/hr IV X1 ONE Stop: 11/13/24 18:25 Last Infusion: 11/13/24 19:40 Dose: Infused Ceftriaxone Sodium/Dextrose (Rocephin/D5w 1gm Iv Premix) 1 gm in 50 mls @ 100 mls/hr IV X1 ONE Stop: 11/13/24 17:55 Last Infusion: 11/13/24 18:33 Dose: Infused Lactated Ringer's (Lactated Ringers) 1,000 mls @ 999 mls/hr IV .Q1H1M ONE Stop: 11/13/24 21:37 Last Admin: 11/13/24 20:46 Dose: 999 mls/hr Ketorolac Tromethamine (Ketorolac Inj 30 Mg/Ml Vial) 15 mg IVP X1 ONE Stop: 11/13/24 18:12 Last Admin: 11/13/24 18:29 Dose: 15 mg Levalbuterol HCl (Levalbuterol Rt 1.25 Mg/0.5 Ml Nebu) 1.25 mg INH X1 ONE Stop: 11/13/24 17:27 Last Admin: 11/13/24 17:32 Dose: 1.25 mg Lorazepam (Lorazepam 2 Mg/Ml Vial) 0.75 mg IVP X1 ONE Stop: 11/13/24 18:12 Last Admin: 11/13/24 18:24 Dose: 0.75 mg Sodium Chloride (Sodium Cl Rt Noreen 3% 4 Ml Nebu (Non-Formulary)) 4 ml INH X1 ONE Stop: 11/13/24 17:27 Last Admin: 11/13/24 17:32 Dose: 4 ml Assessment & Plan Plan Reshma Wilson is 54 yr female with PMH of Downs Syndrome, Schizophrenia, blindness, IBS, and hyperlipidemia, hypotension on midodrine, trach, PEG, type 2 diabetes, COPD presenting to ED from subacute after SOB. Information was obtained from chart review and ED note. Around noon today, she was noted to have oxygen saturation of 89% on blow-by oxygen and became tachycardic to the 130s. Suctioning and albuterol treatments were attempted without improvement. Pateint to be admitted for sepsis 2/2 CAP. #Actue on chronic HRF 2/2 CAP #Sepsis 2/2 CAP From subacute facility. Was desating to high 80s. Faciltiy noted fever as well. CXR showed CXR showed bibasliar PNA. Leukocytosis with WBC 23, tachycardic, tachypnic. Sepsis due to CAP with acute sepsis-related organ dysfunction as evidence by transaminitis. -azithromycin 500mg daily -ceftriaxone 1g daily -blood cultures pending -urine cultures pending -resume subacute ventilation settings #Hx IBS #Hx Schizophrenia #Hx Depression -med rec pending #PEG tube feeds -resume feeds #Hx Macrocytic anemia hb 10.8, MCV 101 on admission. Improved from last admission -med rec pending -outpatient follow up #Hx HLD #History of type 2 diabetes, controlled On admission initial glucose 171. Last A1c 5.8 in 06/2024. #Hx Down syndrome #Hx COPD -duonebs PRN -antibiotics for PNA as above Health maintenance: Dispo: tele, sepsis 2/2 cap FEN: PEG tube feeds DVT prophylaxis: Subcu heparin CODE STATUS: Full code The patient's management plan was discussed with my attending physician Dr. Saeed. Rand Pisano, PGY-1 Attending Provider Attestation/Addendum I discussed with and supervised the resident physician who took care of this patient. I agree with the assessment and plan as above. 54-year-old female with Down syndrome, trach PEG, bedbound, protein calorie malnutrition, COPD admitted for acute on chronic respiratory failure. Patient also has pneumonia with sepsis. Patient is on antibiotic treatment.
[2024-11-14] VITALS (13 sets, daily range): BP systolic 82–116; BP diastolic 49–61; PULSE 44–116; RESP 15–21; TEMP 36.1–36.8; O2SAT 100; BMI 22.2
[2024-11-14] MEDS: MIDODRINE 5 MG TABLET 10 MG GT ×4 (05:26→20:31)
[2024-11-14 06:27] LABS: Basophils # (Auto) 0.1 Thou/mm3 (0.0-0.2); Basophils % (Auto) 0 % (0-2.5); Eosinophils % (Auto) 0 % (0-10); Hematocrit 28.4 % (36.0-46.0); Hemoglobin 9.5 g/dL (12.0-16.0); Immature Granulocytes % (Auto) 1 % (0-0); Immature Granulocytes Auto 0.13 Thou/mm3 (0.00-0.00); Lymphocytes % (Auto) 17 % (10-50); Mean Corpuscular HGB Conc 33.5 g/dl (31.0-37.0); Mean Corpuscular Hemoglobin 34.1 pg (25.0-35.0); Mean Corpuscular Volume 102 fL (80-100); Monocytes # (Auto) 0.5 Thou/mm3 (0.0-0.8); Monocytes % (Auto) 2 % (0-12); Neutrophils # (Auto) 19.3 Thou/mm3 (1.8-7.7); Neutrophils % (Auto) 80 % (37-80); Nucleated Red Blood Cell % 0 /100 WBC (0); Platelet Count 473 Thou/mm3 (140-440); RDW Standard Deviation 56.3 fL (36.4-46.3); Red Blood Count 2.79 Miln/mm3 (4.00-5.20); White Blood Count 24.1 Thou/mm3 (3.6-11.0)
[2024-11-14 06:59] LABS: Alanine Aminotransferase 82 U/L (10-49); Albumin, Serum 3.1 gm/dL (3.5-5.0); Albumin/Globulin Ratio 0.9 (1.2-2.2); Alkaline Phosphatase 120 U/L (46-116); Anion Gap 8 (7-16); Aspartate Amino Transferase 53 U/L (0-34); BUN/Creatinine Ratio 38 Ratio (12-20); Bilirubin,Total 0.2 mg/dL (0.3-1.2); Blood Urea Nitrogen 23 mg/dL (9-23); Calcium 8.3 mg/dL (8.3-10.6); Carbon Dioxide 32.2 mMol/L (20.0-31.0); Chloride 104 mMol/L (98-107); Creatinine (Component) 0.6 mg/dL (0.6-1.3); Estimated Creatinine Clearance 57.3 mL/min (>60); Globulin 3.5 gm/dL (2.3-3.5); Glucose 94 mg/dL (74-106); Magnesium 1.8 mg/dL (1.6-2.6); Osmolality,Calculated 290 (275-295); Phosphorous 3.1 mg/dL (2.4-5.1); Sodium 144 mMol/L (136-145); Total Protein 6.6 gm/dL (5.7-8.2); eGFR > 60 See Note
[2024-11-14] MEDS: ENOXAPARIN SOD INJ 40 MG/0.4 ML SYRINGE SC (08:07)
[2024-11-14] MEDS: cefTRIAXone/D5w 1gm IV premix 1 GM/50 ML BAG IV (08:07)
[2024-11-14] MEDS: LANSOPRAZOLE 30 MG TAB.RAP.DR GT (08:07)
[2024-11-14] MEDS: SODIUM CHLORIDE 0.9% 1000 ML 1,000 ML 999 ML IV (08:23)
[2024-11-14 08:44] LABS: Lactate (Lactic Acid) 1.1 mMol/L (0.4-2.0)
[2024-11-14] MEDS: ASPIRIN 81 MG CHEW GT (09:12)
[2024-11-14] MEDS: SERTRALINE HCL 25 MG TABLET 100 MG GT (09:13)
[2024-11-14] MEDS: SIMETHICONE 80 MG CHEW 40 MG GT ×2 (09:13→20:31)
[2024-11-14] MEDS: PIPER/TAZO 3.375 GM PREMIX 3.375 GM/50 ML BAG IV ×3 (09:13→21:14)
[2024-11-14 09:19] LABS: Vancomycin,Random < 3.0 mcg/mL
--- NOTE | 2024-11-14 09:41 | PC.SS ---
Reshma Wilson is a 54-year-old female admitted to [facility] for PNA. SS conducted over the phone contact with pt sister Ayala Putnam [phone] to complete initial assessment. Ayala reports pt is currently residing at [facility] and DC plan will be for the pt to return. 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 Pt PCP is Dr. Crawley. No further needs identified, SS will remain available. ? Plan: [facility] DM: Sister-Ayala
[2024-11-14] MEDS: VANCOMYCIN/NS 750 MG IVPB 750 MG/150 ML BAG 120 MG IV (09:43)
--- NOTE | 2024-11-14 10:47 | PC.DIETICIAN ---
Nutrition prescription Jevity 1.5 at 30 ml/hr via PEG tube by pump. Advance to goal of 40 ml/hr x 24 hrs if tolerated for 8 hours. If no IV fluids, water flushes of 25 ml/hr (or per MD).
--- NOTE | 2024-11-14 10:53 | CHAP ---
Patient sleeping. The Spiritual Care Volunteer prayed silently for them. (Volunteer was in the hospital from 09:30-10:53).
--- NOTE | 2024-11-14 13:09 | PC.SS ---
Rounding: On IV ABX will return to [facility] upon DC
--- NOTE | 2024-11-14 13:56 | ESPR_ITS ---
<Statement entered by Lita Ortega MD - 11/19/24 15:12> I reviewed above note and agree with findings and plans. I have also personally examined the patient with medicine team and went over assessment and plan with medical team including financial analyst intern and resident physician. Documentation for date of: 11/14/24 Subjective Subjective Interval history: Patient seen and evaluated at the bedside. Patient with previous history of positive sputum cultures for Pseudomonas likely secondary to tracheostomy as this is likely HCAP antibiotics switched to vancomycin and zosyn. Will follow up cultures for sensitivity and speciation. Will consider ID consult if no improvement over the weekend as ID specialist is here M,W,F Exam Vital Signs Temp Pulse Resp BP Pulse Ox O2 Del Method O2 Flow Rate 97.1 F 56 L 19 104/61 100 Blow-by 10 11/14/24 12:00 11/14/24 13:15 11/14/24 12:00 11/14/24 13:15 11/14/24 12:00 11/14/24 12:00 11/14/24 08:39 FiO2 50 11/14/24 08:39 Narrative Exam Physical Exam GENERAL: NAD, frail, short stature HEENT: Dry mucosa. Blind, tracheostomy CARDIO: Heart RRR, no obvious murmurs PULM: No noted coughing/dyspnea CTA B/L, no R/W/R GI: Abdomen soft, nondistended, no pain on palpation. BS appreciated, PEG tube SKIN/MSK/EXT: Contracted, no pain on palpation. Objective Labs 11/14/24 05:14 11/14/24 05:14 Labs: Laboratory Results - last 24 hr 11/13/24 11/13/24 11/13/24 17:35 18:34 19:51 WBC 23.2 H RBC 3.21 L Hgb 10.8 L Hct 32.5 L MCV 101 H MCH 33.6 MCHC 33.2 RDW Std Deviation 55.7 H Plt Count 591 H D Neut % (Auto) 89 H Lymph % (Auto) 8 L Barber % (Auto) 2 Eos % (Auto) 0 Baso % (Auto) 0 Neut # (Auto) 20.6 H Lymph # (Auto) 1.9 Barber # (Auto) 0.5 Eos # (Auto) 0.0 Baso # (Auto) 0.1 Immature Gran # (Auto) 0.15 H Absolute Nucleated RBC 0.00 Immature Gran % 1 H Nucleated RBC % 0 ESR 72 H PT 12.4 H INR 1.1 APTT 22.0 Puncture Site ABG pH ABG pCO2 ABG pO2 ABG HCO3 ABG O2 Saturation ABG Base Excess FiO2 Sodium 142 Potassium 4.6 Chloride 100 Carbon Dioxide 33.0 H Anion Gap 9 BUN 26 H Creatinine 0.7 Estim Creat Clear Calc 49.1 L eGFR > 60 BUN/Creatinine Ratio 37 H Glucose 171 H Calculated Osmolality 291 Lactic Acid 3.4 H Calcium 8.4 Corrected Calcium 8.8 Phosphorus Magnesium 1.6 Total Bilirubin < 0.2 L AST 71 H ALT 107 H Alkaline Phosphatase 147 H Troponin I < 0.020 C-Reactive Prot, Quant 1.9 H B-Natriuretic Peptide 65 Total Protein 7.5 Albumin 3.5 Globulin 4.0 H Albumin/Globulin Ratio 0.9 L Lipase 65 H Procalcitonin 0.14 Ur Collection Type Clean Catch Urine Color Yellow Urine Clarity Turbid A Urine pH 5.0 Ur Specific [place] 1.025 Urine Protein 1+ A Urine Glucose (UA) Negative Urine Ketones Negative Urine Blood 2+ A Urine Nitrite Negative Urine Bilirubin Negative Urine Urobilinogen (Auto) 2.0 Ur Leukocyte Esterase Positive Urine RBC 94 H Urine WBC 32 H Ur Squamous Epith Cells 1 Ur Transition Epith Cell < 1 Urine Bacteria Rare Random Vancomycin 11/13/24 11/13/24 11/14/24 20:49 21:29 05:14 WBC 24.1 H RBC 2.79 L Hgb 9.5 L Hct 28.4 L MCV 102 H MCH 34.1 MCHC 33.5 RDW Std Deviation 56.3 H Plt Count 473 H D Neut % (Auto) 80 Lymph % (Auto) 17 Barber % (Auto) 2 Eos % (Auto) 0 Baso % (Auto) 0 Neut # (Auto) 19.3 H Lymph # (Auto) 4.0 Barber # (Auto) 0.5 Eos # (Auto) 0.0 Baso # (Auto) 0.1 Immature Gran # (Auto) 0.13 H Absolute Nucleated RBC 0.00 Immature Gran % 1 H Nucleated RBC % 0 ESR PT INR APTT Puncture Site Right Brachial ABG pH 7.49 H ABG pCO2 43 ABG pO2 107 ABG HCO3 33 H ABG O2 Saturation 99 H ABG Base Excess 8 H FiO2 50 Sodium 144 Potassium 4.0 D Chloride 104 Carbon Dioxide 32.2 H Anion Gap 8 BUN 23 Creatinine 0.6 Estim Creat Clear Calc 57.3 L eGFR > 60 BUN/Creatinine Ratio 38 H Glucose 94 D Calculated Osmolality 290 Lactic Acid 2.6 H Calcium 8.3 Corrected Calcium 9.0 Phosphorus 3.1 Magnesium 1.8 Total Bilirubin 0.2 L AST 53 H ALT 82 H Alkaline Phosphatase 120 H D Troponin I C-Reactive Prot, Quant B-Natriuretic Peptide Total Protein 6.6 Albumin 3.1 L Globulin 3.5 Albumin/Globulin Ratio 0.9 L Lipase Procalcitonin Ur Collection Type Urine Color Urine Clarity Urine pH Ur Specific [place] Urine Protein Urine Glucose (UA) Urine Ketones Urine Blood Urine Nitrite Urine Bilirubin Urine Urobilinogen (Auto) Ur Leukocyte Esterase Urine RBC Urine WBC Ur Squamous Epith Cells Ur Transition Epith Cell Urine Bacteria Random Vancomycin < 3.0 11/14/24 08:28 WBC RBC Hgb Hct MCV MCH MCHC RDW Std Deviation Plt Count Neut % (Auto) Lymph % (Auto) [place] % (Auto) Eos % (Auto) Baso % (Auto) Neut # (Auto) Lymph # (Auto) Barber # (Auto) Eos # (Auto) Baso # (Auto) Immature Gran # (Auto) Absolute Nucleated RBC Immature Gran % Nucleated RBC % ESR PT INR APTT Puncture Site ABG pH ABG pCO2 ABG pO2 ABG HCO3 ABG O2 Saturation ABG Base Excess FiO2 Sodium Potassium Chloride Carbon Dioxide Anion Gap BUN Creatinine Estim Creat Clear Calc eGFR BUN/Creatinine Ratio Glucose Calculated Osmolality Lactic Acid 1.1 Calcium Corrected Calcium Phosphorus Magnesium Total Bilirubin AST ALT Alkaline Phosphatase Troponin I C-Reactive Prot, Quant B-Natriuretic Peptide Total Protein Albumin Globulin Albumin/Globulin Ratio Lipase Procalcitonin Ur Collection Type Urine Color Urine Clarity Urine pH Ur Specific [place] Urine Protein Urine Glucose (UA) Urine Ketones Urine Blood Urine Nitrite Urine Bilirubin Urine Urobilinogen (Auto) Ur Leukocyte Esterase Urine RBC Urine WBC Ur Squamous Epith Cells Ur Transition Epith Cell Urine Bacteria Random Vancomycin ABG Interpretation ABG results: 11/13/24 20:49 ABG pH 7.49 H ABG pCO2 43 ABG pO2 107 ABG HCO3 33 H ABG O2 Saturation 99 H ABG Base Excess 8 H Quality Measures Quality Measures sepsis Current suspected stage: ruled out Possible source: unknown (source unknown at sign out ) Blood cultures ordered: completed in ED Antibiotic ordered: Yes Assessment & Plan Assessment Current Active Medications: Generic Name Dose Route Start Last Admin Trade Name Freq PRN Reason Stop Dose Admin Acetaminophen 650 mg 11/13/24 20:36 Acetaminophen Noreen 325 Mg/10 Ml Udc GT 12/13/24 20:35 Q6H PRN Fever >100.3 or pain 1-3 Albuterol/Ipratropium 3 ml 11/13/24 20:22 Albuterol/Ipratropium (Duoneb) Rt Noreen 3 Ml Nebu INH 12/13/24 22:59 Q4HRRT PRN SHORTNESS OF BREATH Aspirin 81 mg 11/14/24 09:00 11/14/24 09:12 Aspirin 81 Mg Chew GT 12/14/24 08:59 81 mg QDAY LIZ Administration Atorvastatin Calcium 40 mg 11/14/24 21:00 Atorvastatin Calcium 20 Mg Tablet GT 12/14/24 20:59 HS LIZ Enoxaparin Sodium 40 mg 11/13/24 20:45 11/14/24 08:07 Enoxaparin Sod Inj 40 Mg/0.4 Ml Syringe SC 11/27/24 20:44 40 mg QDAY LIZ Administration Piperacillin/Tazobactam/Dextrose 3.375 gm in 50 mls @ 12.5 mls/hr 11/14/24 14:00 11/14/24 13:10 Zosyn IV 11/21/24 13:59 12.5 mls/hr Q8HR LIZ Administration Protocol Vancomycin/Sodium Chloride 750 mg in 150 mls @ 120 mls/hr 11/14/24 10:00 11/14/24 09:43 Vancomycin/Ns 750 Mg Ivpb IV 11/21/24 09:59 120 mls/hr QDAY@1000 LIZ Administration Lansoprazole 30 mg 11/14/24 09:00 11/14/24 08:07 Lansoprazole 30 Mg Tab GT 12/14/24 08:59 30 mg QDAY LIZ Administration Midodrine 10 mg 11/14/24 08:15 11/14/24 13:15 Midodrine 5 Mg Tablet GT 12/14/24 08:14 10 mg Q6H LIZ Administration Pharmacy Consult 1 each 11/14/24 09:00 Vancomycin Pharmacy To Dose 1 Each Each IV 12/14/24 08:59 QDAY PRN CONSULT Sertraline HCl 100 mg 11/14/24 09:00 11/14/24 09:13 Sertraline Hcl 25 Mg Tablet GT 12/14/24 08:59 100 mg QDAY LIZ Administration Simethicone 40 mg 11/14/24 08:15 11/14/24 09:13 Simethicone 80 Mg Chew GT 12/14/24 08:14 40 mg Q12H LIZ Administration Sodium Chloride 3 ml 11/13/24 17:26 Sodium Chloride Rt Noreen 0.9% 3 Ml Nebu INH 12/13/24 17:25 PRN PRN SOLN Plan 54 yr female with PMH of Downs Syndrome, Schizophrenia, blindness, IBS, and hyperlipidemia, hypotension on midodrine, trach, PEG, type 2 diabetes, COPD presenting to ED from subacute after SOB. Information was obtained from chart review and ED note. Around noon today, she was noted to have oxygen saturation of 89% on blow-by oxygen and became tachycardic to the 130s. Suctioning and albuterol treatments were attempted without improvement. Pateint to be admitted for sepsis 2/2 CAP. #Acute on chronic hypoxic respiratory failure secondary to HCAP #Sepsis secondary to HCAP Was noted with fevers at the subacute facility with low saturations in the 80s Checks x-ray showed bibasilar pneumonia Leukocytosis, tachycardia, tachypneic, with organ damage evidenced by transaminitis Patient has previous cultures growing pseudomonas ? Vancomycin (11/14- ? Zosyn (11/14- ? Follow-up blood cultures ? Follow-up urine cultures ? on Midodrine 10mg q 6hours ? consider ID consult if no improvement over the weekend as ID specialist is here M,W,F ? Continue current ventilation settings #Hx IBS #Hx Schizophrenia #Hx Depression -med rec pending #PEG tube feeds -resume feeds to goal rate, continue free water flushes #Hx Macrocytic anemia hb 10.8, MCV 101 on admission. Improved from last admission -med rec pending -outpatient follow up #Hx HLD #History of type 2 diabetes, controlled On admission initial glucose 171. Last A1c 5.8 in 06/2024. #Hx Down syndrome #Hx COPD -duonebs PRN -antibiotics for PNA as above Health maintenance: Dispo: tele, sepsis Broadened IV antibiotic coverage FEN: PEG tube feeds DVT prophylaxis: Subcu heparin GI ppx: Lansoprazole CODE STATUS: Full code Case discussed with my attending Dr. Shannon Muñiz MD PGY-1 Disclaimer: Despite multiple revisions, due to the dictation software being used, the document bellow may not be free of grammatical errors including phonetic/typographic errors. However, this does not deter from our commitment to providing health care in the patient's best interest in mind.
[2024-11-14] MEDS: ATORVASTATIN CALCIUM 20 MG TABLET 40 MG GT (20:31)
[2024-11-15] VITALS (15 sets, daily range): BP systolic 78–105; BP diastolic 53–67; PULSE 55–72; RESP 12–20; TEMP 36.2–36.9; O2SAT 97–100; BMI 17.6
[2024-11-15] MEDS: MIDODRINE 5 MG TABLET 10 MG GT ×4 (01:44→20:05)
[2024-11-15] MEDS: SODIUM CHLORIDE 0.9% 500 ML 500 ML 999 ML IV (01:56)
[2024-11-15] MEDS: PIPER/TAZO 3.375 GM PREMIX 3.375 GM/50 ML BAG IV ×3 (05:27→22:12)
[2024-11-15 06:46] LABS: Basophils # (Auto) 0.1 Thou/mm3 (0.0-0.2); Basophils % (Auto) 0 % (0-2.5); Eosinophils # (Auto) 0.1 Thou/mm3 (0.0-0.5); Eosinophils % (Auto) 1 % (0-10); Hematocrit 27.7 % (36.0-46.0); Hemoglobin 9.2 g/dL (12.0-16.0); Immature Granulocytes % (Auto) 1 % (0-0); Immature Granulocytes Auto 0.07 Thou/mm3 (0.00-0.00); Lymphocytes # (Auto) 3.5 Thou/mm3 (1.0-4.8); Lymphocytes % (Auto) 25 % (10-50); Mean Corpuscular HGB Conc 33.2 g/dl (31.0-37.0); Mean Corpuscular Hemoglobin 33.8 pg (25.0-35.0); Mean Corpuscular Volume 102 fL (80-100); Monocytes # (Auto) 0.5 Thou/mm3 (0.0-0.8); Monocytes % (Auto) 3 % (0-12); Neutrophils # (Auto) 9.7 Thou/mm3 (1.8-7.7); Neutrophils % (Auto) 70 % (37-80); Nucleated Red Blood Cell % 0 /100 WBC (0); Platelet Count 474 Thou/mm3 (140-440); RDW Standard Deviation 56.3 fL (36.4-46.3); Red Blood Count 2.72 Miln/mm3 (4.00-5.20)
[2024-11-15 07:15] LABS: Alanine Aminotransferase 72 U/L (10-49); Albumin/Globulin Ratio 0.9 (1.2-2.2); Alkaline Phosphatase 115 U/L (46-116); Anion Gap 8 (7-16); Aspartate Amino Transferase 44 U/L (0-34); BUN/Creatinine Ratio 22 Ratio (12-20); Bilirubin,Total 0.2 mg/dL (0.3-1.2); Blood Urea Nitrogen 13 mg/dL (9-23); Calcium (Corrected) 8.8 mg/dL (8.5-10.1); Carbon Dioxide 28.3 mMol/L (20.0-31.0); Chloride 105 mMol/L (98-107); Creatinine (Component) 0.6 mg/dL (0.6-1.3); Estimated Creatinine Clearance 45.6 mL/min (>60); Globulin 3.5 gm/dL (2.3-3.5); Glucose 114 mg/dL (74-106); Magnesium 1.6 mg/dL (1.6-2.6); Osmolality,Calculated 282 (275-295); Phosphorous 2.9 mg/dL (2.4-5.1); Potassium 3.8 mMol/L (3.4-5.1); Sodium 141 mMol/L (136-145); Total Protein 6.5 gm/dL (5.7-8.2); Vancomycin,Trough 6.8 mcg/mL (5.0-10.0); eGFR > 60 See Note
[2024-11-15] MEDS: SIMETHICONE 80 MG CHEW 40 MG GT ×2 (08:10→20:04)
[2024-11-15] MEDS: Magnesium Sulfate 4 GM Ivpb 4 GM/50 ML BAG IV (08:17)
[2024-11-15] MEDS: ENOXAPARIN SOD INJ 40 MG/0.4 ML SYRINGE SC (09:03)
[2024-11-15] MEDS: ASPIRIN 81 MG CHEW GT (09:03)
[2024-11-15] MEDS: SERTRALINE HCL 25 MG TABLET 100 MG GT (09:03)
[2024-11-15] MEDS: LANSOPRAZOLE 30 MG TAB.RAP.DR GT (09:03)
--- NOTE | 2024-11-15 10:39 | ESPR_ITS ---
<Statement entered by Lita Ortega MD - 11/20/24 16:22> I reviewed above note and agree with findings and plans. I have also personally examined the patient with medicine team and went over assessment and plan with medical team including legal summer intern and resident physician. Documentation for date of: 11/15/24 Subjective Subjective Interval history: 11/15/2024: Overnight patient's MAP of 61 on midodrine; moreover, night team gave IV fluid bolus which improved blood pressures. Patient seen and examined in the hospital bed remains at current baseline, trach and PEG. On examination, patient has increased secretions noted in ET tube; moreover, increased rate of suctioning for every 3 hours. Will continue treating with IV Zosyn but discontinued vancomycin at this time. Blood cultures show no growth within 24 hours and urine cultures are pending. Will consider discharging back to subacute care within the next 24 to 48 hours. Exam Vital Signs Temp Pulse Resp BP Pulse Ox O2 Del Method O2 Flow Rate 97.5 F 62 17 99/59 L 100 Blow-by 10 11/15/24 08:00 11/15/24 08:10 11/15/24 08:00 11/15/24 08:10 11/15/24 08:00 11/15/24 08:00 11/15/24 08:00 FiO2 50 11/15/24 04:00 Narrative Exam Physical Exam: GENERAL: NAD, frail, short stature HEENT: Dry mucosa. Blind, tracheostomy CARDIO: Heart RRR, no obvious murmurs PULM: No noted coughing/dyspnea CTA B/L, no R/W/R GI: Abdomen soft, nondistended, no pain on palpation. BS appreciated, PEG tube SKIN/MSK/EXT: Contracted, no pain on palpation. Neuro: Unable to assess Objective Labs 11/15/24 05:58 11/15/24 05:58 Labs: Laboratory Results - last 24 hr 11/15/24 05:58 WBC 14.0 H D RBC 2.72 L Hgb 9.2 L Hct 27.7 L MCV 102 H MCH 33.8 MCHC 33.2 RDW Std Deviation 56.3 H Plt Count 474 H Neut % (Auto) 70 Lymph % (Auto) 25 George % (Auto) 3 Eos % (Auto) 1 Baso % (Auto) 0 Neut # (Auto) 9.7 H Lymph # (Auto) 3.5 George # (Auto) 0.5 Eos # (Auto) 0.1 Baso # (Auto) 0.1 Immature Gran # (Auto) 0.07 H Absolute Nucleated RBC 0.00 Immature Gran % 1 H Nucleated RBC % 0 Sodium 141 Potassium 3.8 Chloride 105 Carbon Dioxide 28.3 Anion Gap 8 BUN 13 Creatinine 0.6 Estim Creat Clear Calc 45.6 L eGFR > 60 BUN/Creatinine Ratio 22 H Glucose 114 H Calculated Osmolality 282 Calcium 8.0 L Corrected Calcium 8.8 Phosphorus 2.9 Magnesium 1.6 Total Bilirubin 0.2 L AST 44 H ALT 72 H Alkaline Phosphatase 115 Total Protein 6.5 Albumin 3.0 L Globulin 3.5 Albumin/Globulin Ratio 0.9 L Vancomycin Trough 6.8 ABG Interpretation ABG results: 11/13/24 20:49 ABG pH 7.49 H ABG pCO2 43 ABG pO2 107 ABG HCO3 33 H ABG O2 Saturation 99 H ABG Base Excess 8 H Quality Measures Quality Measures sepsis Current suspected stage: ruled out Possible source: unknown (source unknown at sign out ) Blood cultures ordered: completed in ED Antibiotic ordered: Yes Assessment & Plan Assessment Current Active Medications: Generic Name Dose Route Start Last Admin Trade Name Freq PRN Reason Stop Dose Admin Acetaminophen 650 mg 11/13/24 20:36 Acetaminophen Noreen 325 Mg/10 Ml Udc GT 12/13/24 20:35 Q6H PRN Fever >100.3 or pain 1-3 Albuterol/Ipratropium 3 ml 11/13/24 20:22 Albuterol/Ipratropium (Duoneb) Rt Noreen 3 Ml Nebu INH 12/13/24 22:59 Q4HRRT PRN SHORTNESS OF BREATH Aspirin 81 mg 11/14/24 09:00 11/15/24 09:03 Aspirin 81 Mg Chew GT 12/14/24 08:59 81 mg QDAY LIZ Administration Atorvastatin Calcium 40 mg 11/14/24 21:00 11/14/24 20:31 Atorvastatin Calcium 20 Mg Tablet GT 12/14/24 20:59 40 mg HS LIZ Administration Carbamide Peroxide 5 drop 11/18/24 09:00 Carbamide Peroxide Otic Noreen 15 Ml Btl BOTH EARS 11/21/24 09:01 QDAY LIZ Enoxaparin Sodium 40 mg 11/13/24 20:45 11/15/24 09:03 Enoxaparin Sod Inj 40 Mg/0.4 Ml Syringe SC 11/27/24 20:44 40 mg QDAY LIZ Administration Piperacillin/Tazobactam/Dextrose 3.375 gm in 50 mls @ 12.5 mls/hr 11/14/24 14:00 11/15/24 05:27 Zosyn IV 11/21/24 13:59 12.5 mls/hr Q8HR LIZ Administration Protocol Magnesium Sulfate 4 gm in 50 mls @ 12.5 mls/hr 11/15/24 07:36 11/15/24 08:17 Magnesium Sulfate Ivpb IV 11/15/24 11:35 12.5 mls/hr X1 ONE Administration Lansoprazole 30 mg 11/14/24 09:00 11/15/24 09:03 Lansoprazole 30 Mg Tab.Sabrina. GT 12/14/24 08:59 30 mg QDAY LIZ Administration Midodrine 10 mg 11/14/24 08:15 11/15/24 08:10 Midodrine 5 Mg Tablet GT 12/14/24 08:14 10 mg Q6H LIZ Administration Sertraline HCl 100 mg 11/14/24 09:00 11/15/24 09:03 Sertraline Hcl 25 Mg Tablet GT 12/14/24 08:59 100 mg QDAY LIZ Administration Simethicone 40 mg 11/14/24 08:15 11/15/24 08:10 Simethicone 80 Mg Chew GT 12/14/24 08:14 40 mg Q12H LIZ Administration Sodium Chloride 3 ml 11/13/24 17:26 Sodium Chloride Rt Noreen 0.9% 3 Ml Nebu INH 12/13/24 17:25 PRN PRN SOLN Plan 54 yr female with PMH of Downs Syndrome, Schizophrenia, blindness, IBS, and hyperlipidemia, hypotension on midodrine, trach, PEG, type 2 diabetes, COPD presenting to ED from subacute after SOB. Information was obtained from chart review and ED note. Around noon today, she was noted to have oxygen saturation of 89% on blow-by oxygen and became tachycardic to the 130s. Suctioning and albuterol treatments were attempted without improvement. Pateint to be admitted for sepsis 2/2 CAP. #Acute on chronic hypoxic respiratory failure secondary to HCAP #Sepsis secondary to HCAP Was noted with fevers at the subacute facility with low saturations in the 80s Checks x-ray showed bibasilar pneumonia Leukocytosis, tachycardia, tachypneic, with organ damage evidenced by transaminitis Patient has previous cultures growing pseudomonas Blood cultures show no growth within 24 hours Plan: Discontinued vancomycin Continue IV Zosyn (11/14- Follow-up urine cultures Continue midodrine 10mg q 6hours G-tube Will consider ID consult if no improvement over the weekend as ID specialist is here M,W,F Continue current ventilation settings #Hx IBS #Hx Schizophrenia #Hx Depression Plan: Resume home meds when applicable #PEG tube feeds Resume feeds to goal rate, continue free water flushes #Hx Macrocytic anemia hb 10.8, MCV 101 on admission. Improved from last admission Likely related secondary to tube feeds and vitamin deficiencies Plan: Will supplement with multivitamin via G-tube #Hx Down syndrome #Hx COPD Plan: Duonebs PRN IV antibiotics for PNA as above Hospital Management: Dispo: Continue IV antibiotics for ventilator associated pneumonia, expect discharge back to subacute in 24 to 48 hours FEN: PEG tube feeds DVT prophylaxis: Subcu heparin GI ppx: Lansoprazole CODE STATUS: Full code Patient seen and examined with attending Dr. Shannon Armas, PGY-1
[2024-11-15] MEDS: ATORVASTATIN CALCIUM 20 MG TABLET 40 MG GT (20:04)
[2024-11-16] VITALS (9 sets, daily range): BP systolic 88–104; BP diastolic 54–61; PULSE 47–73; RESP 16–19; TEMP 36.2–36.4; O2SAT 95–100; BMI 17.6
[2024-11-16] MEDS: MIDODRINE 5 MG TABLET 10 MG GT ×2 (01:59→07:33)
[2024-11-16] MEDS: PIPER/TAZO 3.375 GM PREMIX 3.375 GM/50 ML BAG IV (05:16)
[2024-11-16 06:08] LABS: Basophils # (Auto) 0.1 Thou/mm3 (0.0-0.2); Basophils % (Auto) 1 % (0-2.5); Eosinophils # (Auto) 0.2 Thou/mm3 (0.0-0.5); Eosinophils % (Auto) 1 % (0-10); Hematocrit 28.9 % (36.0-46.0); Hemoglobin 9.8 g/dL (12.0-16.0); Immature Granulocytes % (Auto) 0 % (0-0); Immature Granulocytes Auto 0.04 Thou/mm3 (0.00-0.00); Lymphocytes # (Auto) 3.3 Thou/mm3 (1.0-4.8); Lymphocytes % (Auto) 32 % (10-50); Mean Corpuscular HGB Conc 33.9 g/dl (31.0-37.0); Mean Corpuscular Hemoglobin 33.9 pg (25.0-35.0); Mean Corpuscular Volume 100 fL (80-100); Monocytes # (Auto) 0.6 Thou/mm3 (0.0-0.8); Monocytes % (Auto) 5 % (0-12); Neutrophils # (Auto) 6.3 Thou/mm3 (1.8-7.7); Neutrophils % (Auto) 61 % (37-80); Nucleated Red Blood Cell % 0 /100 WBC (0); Platelet Count 524 Thou/mm3 (140-440); RDW Standard Deviation 55.7 fL (36.4-46.3); Red Blood Count 2.89 Miln/mm3 (4.00-5.20); White Blood Count 10.4 Thou/mm3 (3.6-11.0)
[2024-11-16 06:35] LABS: Alanine Aminotransferase 63 U/L (10-49); Albumin, Serum 3.2 gm/dL (3.5-5.0); Albumin/Globulin Ratio 0.9 (1.2-2.2); Alkaline Phosphatase 122 U/L (46-116); Anion Gap 9 (7-16); Aspartate Amino Transferase 38 U/L (0-34); BUN/Creatinine Ratio 22 Ratio (12-20); Bilirubin,Total < 0.2 mg/dL (0.3-1.2); Blood Urea Nitrogen 13 mg/dL (9-23); Calcium 8.1 mg/dL (8.3-10.6); Calcium (Corrected) 8.7 mg/dL (8.5-10.1); Carbon Dioxide 30.2 mMol/L (20.0-31.0); Chloride 102 mMol/L (98-107); Creatinine (Component) 0.6 mg/dL (0.6-1.3); Estimated Creatinine Clearance 45.6 mL/min (>60); Globulin 3.7 gm/dL (2.3-3.5); Glucose 118 mg/dL (74-106); Magnesium 1.9 mg/dL (1.6-2.6); Osmolality,Calculated 282 (275-295); Phosphorous 3.1 mg/dL (2.4-5.1); Potassium 3.9 mMol/L (3.4-5.1); Sodium 141 mMol/L (136-145); Total Protein 6.9 gm/dL (5.7-8.2); eGFR > 60 See Note
--- NOTE | 2024-11-16 06:46 | ESDS_ITS ---
<Statement entered by Lita Ortega MD - 11/20/24 16:23> I reviewed above note and agree with findings and plans. I have also personally examined the patient with medicine team and went over assessment and plan with medical team including training intern and resident physician. Planned Discharge Date 11/16/24 DS: Providers Provider Date of admission: 11/13/24 20:23 Primary care physician: Alexandre Crawley MD Admitting Provider: Flakito Saeed MD Attending Provider on Admission: Lita Ortega MD Consults: 11/14/24 00:45 Referral Registered Dietitian Urgent Comment: tube feeds recommendations Attending Provider on DC: Dong Armas MD Discharging Provider: Dong Armas MD DS: Diagnosis Problem List Completed Was Problem List Reviewed/Reconciled?: Yes Hospital Course Hospital Course Hospital course: 54 yr female with PMH of Downs Syndrome, Schizophrenia, blindness, IBS, and hyperlipidemia, hypotension on midodrine, trach, PEG, type 2 diabetes, COPD presenting to ED from subacute after SOB. Information was obtained from chart review and ED note. Around noon today, she was noted to have oxygen saturation of 89% on blow-by oxygen and became tachycardic to the 130s. Suctioning and albuterol treatments were attempted without improvement. Pateint to be admitted for sepsis 2/2 CAP. #Acute on chronic hypoxic respiratory failure secondary to HCAP #Sepsis secondary to HCAP Was noted with fevers at the subacute facility with low saturations in the 80s Checks x-ray showed bibasilar pneumonia Leukocytosis, tachycardia, tachypneic, with organ damage evidenced by transaminitis Patient has previous cultures growing pseudomonas Blood cultures show no growth within 24 hours Plan: Discontinued vancomycin Continue IV Zosyn (11/14- Follow-up urine cultures Continue midodrine 10mg q 6hours G-tube Will consider ID consult if no improvement over the weekend as ID specialist is here M,W,F Continue current ventilation settings #Hx IBS #Hx Schizophrenia #Hx Depression Plan: Resume home meds when applicable #PEG tube feeds Resume feeds to goal rate, continue free water flushes #Hx Macrocytic anemia hb 10.8, MCV 101 on admission. Improved from last admission Likely related secondary to tube feeds and vitamin deficiencies Plan: Will supplement with multivitamin via G- tube #Hx Down syndrome #Hx COPD Plan: Duonebs PRN IV antibiotics for PNA as above Hospital Management: Dispo: Continue IV antibiotics for ventilator associated pneumonia, expect discharge back to subacute in 24 to 48 hours FEN: PEG tube feeds DVT prophylaxis: Subcu heparin GI ppx: Lansoprazole CODE STATUS: Full code #Acute on chronic hypoxic respiratory failure secondary to HCAP #Sepsis secondary to HCAP #Hx IBS #Hx Schizophrenia #Hx Depression #PEG tube feeds #Hx Macrocytic anemia #Hx Down syndrome #Hx COPD Patient will be discharged back to subacute with the following instructions: Please take Levofloxacin 750 mg tablet daily by G-tube for 5 days to complete course for ventilator-associated pneumonia Continue all other home medications as prescribed Please return patient to the ED if develops new hypo/hyperthermia, desaturation event, significant changes in ventilator settings Time Spent with Patient Time attestation: Total time spent providing and/or coordinating discharge services: 45 minutes Time spent: Greater than 30 minutes Exam Vital Signs Temp Pulse Resp BP Pulse Ox O2 Del Method O2 Flow Rate 97.2 F 62 18 101/59 L 100 Blow-by 8 11/16/24 04:00 11/16/24 04:00 11/16/24 06:00 11/16/24 04:00 11/16/24 06:00 11/16/24 04:00 11/16/24 04:00 FiO2 35 11/15/24 20:00 Narrative Exam Physical Exam: GENERAL: NAD, frail, short stature HEENT: Dry mucosa. Blind, tracheostomy CARDIO: Heart RRR, no obvious murmurs PULM: No noted coughing/dyspnea CTA B/L, no R/W/R GI: Abdomen soft, nondistended, no pain on palpation. BS appreciated, PEG tube SKIN/MSK/EXT: Contracted, no pain on palpation. Neuro: Unable to assess Discharge Plan Plan Patient Disposition: Xfer Other Disposition Comment: Subacute Patient condition on transfer: Stable Care Plan Goals: Please take Levofloxacin 750 mg tablet daily by G-tube for 5 days to complete course for ventilator-associated pneumonia Continue all other home medications as prescribed Please return patient to the ED if develops new hypo/hyperthermia, desaturation event, significant changes in ventilator settings Prescriptions/Referrals Prescriptions/Med Rec: New levofloxacin 750 mg tablet 750 mg feeding tube QDAY 5 Days Qty: 5 0RF Continued multivitamin Tablet 1 tab G-tube QDAY Rx Instructions: supplement atorvastatin 40 mg Tablet 40 mg G-tube HS Label Comments: hyperlipidemia acetaminophen 325 mg Tablet 650 mg G-tube Q6HR PRN (Reason: Pain) Label Comments: Please do not exceed more than 3grams of acetaminophen from all sources in 24 hours albuterol sulfate 2.5 mg /3 mL (0.083 %) Solution For Nebulization 2.5 mg INH Q8HRRT PRN (Reason: Shortness Of Breath Or Wheeze) polyethylene glycol 3350 17 gram Powder In Packet 17 g G-tube PRN PRN (Reason: No BM Per Bowel Management Protocol) Label Comments: Administer as needed if 2nd round bowel protocol ineffective. Rx Instructions: Mix with 4oz of water before giving. Hold tube feeding for 30 minutes after administration. Notify provider if no results from Miralax. magnesium hydroxide [Milk of Magnesia] 400 mg/5 mL Suspension 15 ml G-tube PRN PRN (Reason: Constipation) Rx Instructions: CONC: 400MG/5ML bisacodyl [Dulcolax (bisacodyl)] 10 mg Suppository 10 mg IA PRN PRN (Reason: No BM Per Bowel Management Protocol) Rx Instructions: Administer as needed on 6th shift, if MOM ineffective. Fleet Enema 19-7 gram/118 mL Enema 133 ml IA PRN PRN (Reason: No BM Per Bowel Management Protocol) Label Comments: If Dulcolax is ineffective on 3rd day / 7th shift, give Fleets enema per Bowel Management Protocol. Notify MD if no results from Enema. Ear Wax Removal Drops 6.5 % Drops 5 drp otic (ear) Q61D Label Comments: 5 drops per ear at first med pass of shift. Then irrigate ears with NS at next med pass of each shift x 4 days for wax build up. Ear Wax Removal Drops 6.5 % Drops 5 drp otic (ear) Q61D Rx Instructions: 5 drops per ear at first med pass of shift. Then irrigate ears with NS at next med pass of each shift x 4 days for wax build up. *Start on the of the month, every two months. Ear Wax Removal Drops 6.5 % Drops 5 drp otic (ear) Q61D Label Comments: 5 drops per ear at first med pass of shift. Then irrigate ears with NS at next med pass of each shift x 4 days for wax build up. Ear Wax Removal Drops 6.5 % Drops 5 drp otic (ear) Q61D Rx Instructions: 5 drops per ear at first med pass of shift. Then irrigate ears with NS at next med pass of each shift x 4 days for wax build up. *Start on the of the month, every two months. Ear Wax Removal Drops 6.5 % Drops 5 drp otic (ear) Q61D Label Comments: 5 drops per ear at first med pass of shift. Then irrigate ears with NS at next med pass of each shift x 4 days for wax build up. Ear Wax Removal Drops 6.5 % Drops 5 drp otic (ear) Q61D Label Comments: 5 drops per ear at first med pass of shift. Then irrigate ears with NS at next med pass of each shift x 4 days for wax build up. Ear Wax Removal Drops 6.5 % Drops 5 drp otic (ear) Q61D Rx Instructions: 5 drops per ear at first med pass of shift. Then irrigate ears with NS at next med pass of each shift x 4 days for wax build up. *Start on the of the month, every two months. Ear Wax Removal Drops 6.5 % Drops 5 drp otic (ear) Q61D Label Comments: 5 drops per ear at first med pass of shift. Then irrigate ears with NS at next med pass of each shift x 4 days for wax build up. aspirin 81 mg Tablet,Chewable 81 mg G-tube QDAY Label Comments: CVA prevention sertraline 50 mg Tablet 100 mg G-tube QDAY Label Comments: Schizophrenia MB restlessness , BBW simethicone 80 mg Tablet,Chewable 40 mg G-tube Q12H Label Comments: gas midodrine 10 mg Tablet 10 mg G-tube Q6H Label Comments: Hypotension (BBW) Rx Instructions: Hold for SBP>120 insulin lispro 100 unit/mL Insulin Pen See Rx Instructions SCi Label Comments: DM Rx Instructions: Per Sliding Scale With sliding scale coverage 0-150=0 units, 151-200=2 units, 201-250=4 units, 251-300=6 units, 301-350=8 units, 351-400=10 units, >400 =12 units and call silver nitrate applicators 75-25 % Stick 1 ea top QWEEK PRN (Reason: Hypergranulated stoma tissue) ferrous sulfate 220 mg (44 mg iron)/5 mL Elixir 300 mg G-tube DAILY Label Comments: anemia Rx Instructions: CONC: 220mg/5ml Give 6.8mL Lansoprazole 30mg Odt Tablet 30 mg GT DAILY Label Comments: GERD Referrals: Alexandre Crawley MD [Primary Care Provider] - Patient/Caregiver Discharge Instructions Print Language: Bengali Stand Alone Forms: Gloria Award Info., Patient Portal Info Letter Discharge Order Discharge Orders: Discharge (Routine); Ordered 11/16/24 Ordered By: Hoang Muñiz Quality Discharge Quality Measures VTE prophylaxis
[2024-11-16] MEDS: SERTRALINE HCL 25 MG TABLET 100 MG GT (07:32)
[2024-11-16] MEDS: SIMETHICONE 80 MG CHEW 40 MG GT (07:32)
[2024-11-16] MEDS: ASPIRIN 81 MG CHEW GT (07:32)
[2024-11-16] MEDS: LANSOPRAZOLE 30 MG TAB.RAP.DR GT (07:33)
[2024-11-16] MEDS: ENOXAPARIN SOD INJ 40 MG/0.4 ML SYRINGE SC (07:33)
--- NOTE | 2024-11-16 08:39 | PC.SS ---
Follow up note: Patient is a return to Subacute. SS updated with clinical medical care manager and nursing. No need for PASRR since patient is from facility and only been in house for 3 days. D/c today.
--- NOTE | 2024-11-16 16:19 | PC.NURSE ---
[facility] from <enter start time> to <enter end time>.11/16/2024 0900, 11/16/24 1614
--- NOTE | 2024-11-16 16:54 | PC.NURSE ---
[facility] 09[facility] 1600.
--- NOTE | 2024-11-16 17:10 | PC.NURSE ---
[facility] 09[facility] 1600.
== END 2024-11-16 09:00 | disposition other institution (70) | DRG 720 ==
LOC: SERX 19:35 → SERHOLD 20:54 → S2NX 22:14
PROVIDERS: Emergency Medicine; Student in an Organized Health Care Education/Training Program; Admitting Provider Internal Medicine; Emergency Provider Emergency Medicine; PCP Specialist; Visit Provider Internal Medicine
DX: A41.9 Sepsis, unspecified organism (principal); E11.9 Type 2 diabetes mellitus without complications; F20.9 Schizophrenia, unspecified; F31.9 Bipolar disorder, unspecified; H54.7 Unspecified visual loss; E78.5 Hyperlipidemia, unspecified; K58.9 Irritable bowel syndrome, unspecified; D53.9 Nutritional anemia, unspecified; J18.9 Pneumonia, unspecified organism; J44.0 Chronic obstructive pulmonary disease with (acute) lower respiratory infection; Q90.9 Down syndrome, unspecified; Z93.0 Tracheostomy status; Z93.1 Gastrostomy status; J96.21 Acute and chronic respiratory failure with hypoxia; R65.20 Severe sepsis without septic shock; E87.3 Alkalosis; E46 Unspecified protein-calorie malnutrition; Y95 Nosocomial condition; Z79.82 Long term (current) use of aspirin; Z74.01 Bed confinement status; Z79.4 Long term (current) use of insulin
CPT/HCPCS: 36415; 36600; 71045; 80053; 80202; 81001; 82803; 83605; 83690; 83735; 83880; 84100; 84145; 84484; 85025; 85610; 85652; 85730; 86140; 87040; 87077; 87081; 87086; 87186; 87400; 87811; 93005; 94640; 96365; 96367; 96375; 99285; J0456; J0696; J1650; J1885; J2060; J2543; J3370; J3475; J7030; J7040; J7050; J7120; A9270